=== PATIENT | female | born 1975 | race Two or more races ===

== ENCOUNTER → 2019-12-25 12:40 | Outpatient (BNVA) | payer MEDICAID, SELFPAY | PROVIDERS: PCP Internal Medicine; Visit Provider Physician Assistant | DX: K21.9 Gastro-esophageal reflux disease without esophagitis (principal); R19.7 Diarrhea, unspecified; Z79.899 Other long term (current) drug therapy | CPT/HCPCS: 99203 ==

== ENCOUNTER → 2020-01-08 14:15 | Outpatient (BNVA) | payer MEDICAID, SELFPAY | PROVIDERS: PCP Internal Medicine; Visit Provider Physician Assistant | DX: K21.9 Gastro-esophageal reflux disease without esophagitis (principal); R19.7 Diarrhea, unspecified; Z79.899 Other long term (current) drug therapy | CPT/HCPCS: 99212 ==

== ENCOUNTER → 2020-01-14 20:07 | Outpatient (REF) | payer MEDICAID, SELFPAY | LOC: HO.SL 20:07 | PROVIDERS: Visit Provider Nurse Practitioner Family | DX: G47.9 Sleep disorder, unspecified (principal); G47.33 Obstructive sleep apnea (adult) (pediatric) | CPT/HCPCS: 95810 ==

== ENCOUNTER → 2020-01-15 08:43 | Outpatient (BNVA) | payer MEDICAID, SELFPAY | PROVIDERS: PCP Internal Medicine; Referring Provider Internal Medicine; Visit Provider Nurse Practitioner Family | DX: Z76.89 Persons encountering health services in other specified circumstances (principal) ==

== ENCOUNTER → 2020-01-29 08:33 | Outpatient (BNVA) | payer MEDICAID, SELFPAY | PROVIDERS: Visit Provider Nurse Practitioner Family | DX: Z76.89 Persons encountering health services in other specified circumstances (principal) ==

== ENCOUNTER → 2020-04-23 13:31 | Outpatient (BNVA) | payer MEDICAID, SELFPAY | PROVIDERS: Visit Provider Physician Assistant ==

== ENCOUNTER → 2020-04-29 10:26 | Outpatient (BNVA) | payer MEDICAID, SELFPAY | PROVIDERS: Visit Provider Nurse Practitioner Family ==

== ENCOUNTER 2020-05-07 10:29 | Outpatient (REF) | payer MEDICAID, SELFPAY ==
[2020-05-07 10:56] LABS: Hematocrit 45.8 % (37-47); Hemoglobin 14.6 g/dl (12.0-16.0); Mean Corpuscular HGB Conc 31.9 g/dl (31.0-35.0); Mean Corpuscular Hemoglobin 28.8 pg (27.0-33.0); Mean Corpuscular Volume 90.3 fL (80-98); Mean Platelet Volume 11.2 fL (9.4-12.3); Platelet Count 223 X10*3/uL (160-400); Red Blood Count 5.07 X10*6/uL (4.20-5.50); Red Cell Distribution Width 12.9 % (11.0-16.0)
[2020-05-07 11:40] LABS: Alanine Aminotransferase 10 U/L (0-31); Alkaline Phosphatase 104 U/L (39-117); Anion Gap 11 (12-20); Aspartate Amino Transferase 10 U/L (5-31); Bilirubin Total 0.4 mg/dL (0.0-1.0); Blood Urea Nitrogen 9 mg/dL (9-16); Carbon Dioxide 27 mmol/L (22-29); Chloride 108 mmol/L (96-108); Estimated Glomerular Filt Rate > 60; Glucose Random 104 mg/dL (60-115); Iron 62 mcg/dL (30-160); Percent Iron Saturation 17 % (15-50); Potassium 4.3 mmol/L (3.3-5.1); Sodium 142 mmol/L (135-145); Total Iron Binding Capacity 367 mcg/dL (228-428); Total Protein 6.2 g/dL (6.5-8.0); Unsaturated Iron Binding 305 ug/dL
[2020-05-07 12:00] LABS: Ferritin 24 ng/mL (10-250)
[2020-05-08 16:02] LABS: Transferrin 292 mg/dL (188-341)
== END 2020-05-07 10:30 | disposition home or self-care (01) ==
LOC: HO.LAB 10:29
PROVIDERS: Absent Provider Physician Assistant; PCP Internal Medicine; Visit Provider Nurse Practitioner Family
DX: G25.81 Restless legs syndrome (principal); R19.7 Diarrhea, unspecified
CPT/HCPCS: 36415; 80053; 82728; 83540; 84466; 85027

== ENCOUNTER 2020-05-22 14:53 | Outpatient (REF) | payer MEDICAID, SELFPAY ==
--- NOTE | ~2020-05-22 | XR_ITS ---
EXAMINATION: XR KNEE, LEFT CLINICAL INFORMATION: Rheumatoid arthritis with moderate factor. COMPARISON: None TECHNIQUE: Four views of the left knee. FINDINGS: Bones and soft tissues are normal. No fracture or joint effusion. Alignment is anatomic. Joint spaces are well maintained. No abnormal soft tissue calcification. XR/XR knee LT 3V IMPRESSION: Unremarkable left knee.
== END 2020-05-22 14:54 | disposition home or self-care (01) ==
LOC: HO.XRAY 14:53
PROVIDERS: PCP Internal Medicine; Visit Provider Student in an Organized Health Care Education/Training Program
DX: M05.9 Rheumatoid arthritis with rheumatoid factor, unspecified (principal); M81.8 Other osteoporosis without current pathological fracture; M79.7 Fibromyalgia; Z88.0 Allergy status to penicillin; Z88.8 Allergy status to other drugs, medicaments and biological substances; Z79.52 Long term (current) use of systemic steroids
CPT/HCPCS: 73562; 99212

== ENCOUNTER → 2020-05-23 11:53 | Outpatient (BNVA) | payer MEDICAID, SELFPAY | PROVIDERS: PCP Internal Medicine; Visit Provider Internal Medicine Pulmonary Disease | DX: J45.40 Moderate persistent asthma, uncomplicated (principal); Z79.899 Other long term (current) drug therapy | CPT/HCPCS: 99212 ==

== ENCOUNTER → 2020-05-27 07:59 | Outpatient (BNVA) | payer MEDICAID, SELFPAY | PROVIDERS: PCP Internal Medicine; Visit Provider Physician Assistant ==

== ENCOUNTER → 2020-06-12 09:11 | Outpatient (BNVA) | payer MEDICAID, SELFPAY | PROVIDERS: Visit Provider Physician Assistant ==

== ENCOUNTER → 2020-07-22 11:15 | Outpatient (BNVA) | payer MEDICAID, SELFPAY | PROVIDERS: PCP Internal Medicine; Visit Provider Nurse Practitioner Family ==

== ENCOUNTER → 2020-08-01 13:22 | Outpatient (BNVA) | payer MEDICAID, SELFPAY | PROVIDERS: PCP Internal Medicine; Visit Provider Internal Medicine Pulmonary Disease | DX: J45.50 Severe persistent asthma, uncomplicated (principal); M05.9 Rheumatoid arthritis with rheumatoid factor, unspecified; Z88.0 Allergy status to penicillin; Z88.8 Allergy status to other drugs, medicaments and biological substances; Z79.899 Other long term (current) drug therapy | CPT/HCPCS: 99212 ==

== ENCOUNTER → 2020-08-07 09:36 | Outpatient (BNVA) | payer MEDICAID, SELFPAY | PROVIDERS: PCP Internal Medicine; Visit Provider Physician Assistant ==

== ENCOUNTER 2020-08-26 09:48 | Outpatient (REF) | payer MEDICAID, SELFPAY ==
[2020-08-26 11:02] LABS: MANUAL DIFF FLAG NO
[2020-08-26 11:18] LABS: Basophils Percent Auto 0.5 % (0-2); Eosinophils Absolute Auto 0.3 X10*3/uL (0.0-0.4); Eosinophils Percent Auto 3.8 % (0-4); Hematocrit 43.9 % (37-47); Hemoglobin 13.6 g/dl (12.0-16.0); Imm Gran Abs Auto 0.02 X10*3/uL (0.00-0.03); Imm Gran Pct Auto 0.3 % (0.0-0.4); Lymphocytes Absolute Auto 2.4 X10*3/uL (1.2-4.9); Lymphocytes Percent Auto 32.2 % (20-40); Mean Corpuscular Hemoglobin 28.4 pg (27.0-33.0); Mean Corpuscular Volume 91.6 fL (80-98); Mean Platelet Volume 10.9 fL (9.4-12.3); Monocytes Absolute Auto 0.5 X10*3/uL (0.1-1.2); Monocytes Percent Auto 6.8 % (2-11); Neutrophils Absolute Auto 4.1 X10*3/uL (2.0-8.3); Neutrophils Percent Auto 56.4 % (45-73); Platelet Count 226 X10*3/uL (160-400); Red Blood Count 4.79 X10*6/uL (4.20-5.50); Red Cell Distribution Width 13.8 % (11.0-16.0); White Blood Count 7.3 X10*3/uL (4.8-10.8)
[2020-08-26 11:32] LABS: Alanine Aminotransferase 14 U/L (0-31); Albumin Level 3.7 g/dL (3.5-5.0); Alkaline Phosphatase 114 U/L (39-117); Anion Gap 10 (12-20); Aspartate Amino Transferase 13 U/L (5-31); Bilirubin Total 0.3 mg/dL (0.0-1.0); Blood Urea Nitrogen 13 mg/dL (9-16); C Reactive Protein 0.67 mg/dL (< or = 0.50); Calcium 8.9 mg/dL (8.4-10.2); Carbon Dioxide 27 mmol/L (22-29); Chloride 111 mmol/L (96-108); Estimated Glomerular Filt Rate > 60; Glucose Random 107 mg/dL (60-115); Potassium 4.2 mmol/L (3.3-5.1); Sodium 144 mmol/L (135-145)
[2020-08-26 11:55] LABS: Thyroid Stimulating Hormone 2.08 uIU/mL (0.32-4.0)
[2020-08-26 12:19] LABS: Erythrocyte Sedimentation Rate 9 MM/HR (0-20)
[2020-08-27 13:37] LABS: CRP High Sensitivity 6.4 mg/L
[2020-08-29 16:41] LABS: Transglutaminase IgA 1 U/mL
== END 2020-08-26 09:49 | disposition home or self-care (01) ==
LOC: HO.MDS 09:48
PROVIDERS: Physician Assistant; Absent Provider Student in an Organized Health Care Education/Training Program; PCP Internal Medicine; Visit Provider Internal Medicine Pulmonary Disease
DX: M05.9 Rheumatoid arthritis with rheumatoid factor, unspecified (principal); R19.7 Diarrhea, unspecified; K59.09 Other constipation; J45.909 Unspecified asthma, uncomplicated
CPT/HCPCS: 36415; 80053; 83516; 84443; 85025; 85652; 86140; 86141

== ENCOUNTER → 2020-08-27 12:21 | Outpatient (BNVA) | payer MEDICAID, SELFPAY | PROVIDERS: PCP Internal Medicine; Visit Provider Student in an Organized Health Care Education/Training Program | DX: M05.9 Rheumatoid arthritis with rheumatoid factor, unspecified (principal) | CPT/HCPCS: 99212 ==

== ENCOUNTER 2020-10-10 11:00 | Outpatient (REF) | payer MEDICAID, SELFPAY | END 2020-10-10 11:01 | disposition home or self-care (01) | LOC: HO.MDS 11:00 | PROVIDERS: Visit Provider Internal Medicine Pulmonary Disease | DX: J45.50 Severe persistent asthma, uncomplicated (principal) | CPT/HCPCS: 96372; J2357 ==

== ENCOUNTER → 2020-10-15 14:40 | Outpatient (BNVA) | payer MEDICAID, SELFPAY | PROVIDERS: PCP Internal Medicine; Visit Provider Internal Medicine Pulmonary Disease | DX: J45.50 Severe persistent asthma, uncomplicated (principal); Z91.09 Other allergy status, other than to drugs and biological substances | CPT/HCPCS: 99212 ==

== ENCOUNTER 2020-10-27 11:31 | Outpatient (REF) | payer MEDICAID, SELFPAY | END 2020-10-27 11:32 | disposition home or self-care (01) | LOC: HO.MDS 11:31 | PROVIDERS: PCP Internal Medicine; Visit Provider Internal Medicine Pulmonary Disease | DX: J45.50 Severe persistent asthma, uncomplicated (principal) | CPT/HCPCS: 96372; J2357; J2930; Q0163 ==

== ENCOUNTER 2020-10-27 13:29 | Outpatient (REF) | payer MEDICAID, SELFPAY ==
[2020-10-27 14:16] LABS: MANUAL DIFF FLAG NO
[2020-10-27 14:31] LABS: Basophils Absolute Auto 0.1 X10*3/uL (0.0-0.2); Basophils Percent Auto 0.5 % (0-2); Eosinophils Absolute Auto 0.2 X10*3/uL (0.0-0.4); Eosinophils Percent Auto 1.5 % (0-4); Hematocrit 48.7 % (37-47); Hemoglobin 15.3 g/dl (12.0-16.0); Imm Gran Abs Auto 0.05 X10*3/uL (0.00-0.03); Imm Gran Pct Auto 0.5 % (0.0-0.4); Lymphocytes Absolute Auto 2.2 X10*3/uL (1.2-4.9); Lymphocytes Percent Auto 22.2 % (20-40); Mean Corpuscular HGB Conc 31.4 g/dl (31.0-35.0); Mean Corpuscular Hemoglobin 28.4 pg (27.0-33.0); Mean Corpuscular Volume 90.5 fL (80-98); Mean Platelet Volume 10.6 fL (9.4-12.3); Monocytes Absolute Auto 0.4 X10*3/uL (0.1-1.2); Monocytes Percent Auto 3.6 % (2-11); Neutrophils Absolute Auto 7.2 X10*3/uL (2.0-8.3); Neutrophils Percent Auto 71.7 % (45-73); Platelet Count 251 X10*3/uL (160-400); Red Blood Count 5.38 X10*6/uL (4.20-5.50); Red Cell Distribution Width 13.2 % (11.0-16.0); White Blood Count 10.1 X10*3/uL (4.8-10.8)
[2020-10-27 14:41] LABS: Alanine Aminotransferase 28 U/L (0-31); Albumin Level 4.1 g/dL (3.5-5.0); Alkaline Phosphatase 123 U/L (39-117); Anion Gap 14 (12-20); Aspartate Amino Transferase 17 U/L (5-31); Bilirubin Total 0.4 mg/dL (0.0-1.0); Blood Urea Nitrogen 9 mg/dL (9-16); C Reactive Protein 1.26 mg/dL (< or = 0.50); Calcium 9.5 mg/dL (8.4-10.2); Carbon Dioxide 27 mmol/L (22-29); Chloride 108 mmol/L (96-108); Estimated Glomerular Filt Rate > 60; Glucose Random 121 mg/dL (60-115); Potassium 3.9 mmol/L (3.3-5.1); Sodium 145 mmol/L (135-145); Total Protein 6.8 g/dL (6.5-8.0)
[2020-10-27 15:13] LABS: Erythrocyte Sedimentation Rate 12 MM/HR (0-20)
== END 2020-10-27 13:30 | disposition home or self-care (01) ==
LOC: HO.LAB 13:29
PROVIDERS: PCP Internal Medicine; Visit Provider Student in an Organized Health Care Education/Training Program
DX: M05.9 Rheumatoid arthritis with rheumatoid factor, unspecified (principal)
CPT/HCPCS: 36415; 80053; 85025; 85652; 86140

== ENCOUNTER 2020-11-11 12:42 | Outpatient (REF) | payer MEDICAID, SELFPAY | END 2020-11-11 12:43 | disposition home or self-care (01) | LOC: HO.MDS 12:42 | PROVIDERS: PCP Internal Medicine; Visit Provider Internal Medicine Pulmonary Disease | DX: J45.50 Severe persistent asthma, uncomplicated (principal) | CPT/HCPCS: 96372; J2357 ==

== ENCOUNTER → 2020-11-11 13:31 | Outpatient (REF) | payer MEDICAID, SELFPAY | LOC: HO.SL 13:31 | PROVIDERS: PCP Internal Medicine; Visit Provider Nurse Practitioner Family | DX: G47.33 Obstructive sleep apnea (adult) (pediatric) (principal) | CPT/HCPCS: 99211 ==

== ENCOUNTER → 2020-11-19 12:42 | Outpatient (BNVA) | payer MEDICAID, SELFPAY | PROVIDERS: PCP Internal Medicine; Referring Provider Internal Medicine; Visit Provider Physician Assistant | DX: K58.9 Irritable bowel syndrome, unspecified (principal) | CPT/HCPCS: 99202 ==

== ENCOUNTER 2020-11-25 14:50 | Outpatient (REF) | payer MEDICAID, SELFPAY | END 2020-11-25 14:51 | disposition home or self-care (01) | LOC: HO.MDS 14:50 | PROVIDERS: PCP Internal Medicine; Visit Provider Internal Medicine Pulmonary Disease | DX: J45.50 Severe persistent asthma, uncomplicated (principal) | CPT/HCPCS: 96372; J2357 ==

== ENCOUNTER 2020-12-09 11:45 | Outpatient (REF) | payer MEDICAID, SELFPAY | END 2020-12-09 11:46 | disposition home or self-care (01) | LOC: HO.MDS 11:45 | PROVIDERS: PCP Internal Medicine; Visit Provider Internal Medicine Pulmonary Disease | DX: J45.50 Severe persistent asthma, uncomplicated (principal) | CPT/HCPCS: 96372; J2357 ==

== ENCOUNTER → 2020-12-17 12:54 | Outpatient (BNVA) | payer MEDICAID, SELFPAY | PROVIDERS: PCP Internal Medicine; Visit Provider Internal Medicine Pulmonary Disease | DX: J45.50 Severe persistent asthma, uncomplicated (principal); Z91.09 Other allergy status, other than to drugs and biological substances | CPT/HCPCS: 99212 ==

== ENCOUNTER 2020-12-24 11:34 | Outpatient (REF) | payer MEDICAID, SELFPAY | END 2020-12-24 11:35 | disposition home or self-care (01) | LOC: HO.MDS 11:34 | PROVIDERS: PCP Internal Medicine; Visit Provider Internal Medicine Pulmonary Disease | DX: J45.50 Severe persistent asthma, uncomplicated (principal) | CPT/HCPCS: 96372; J2357 ==

== ENCOUNTER 2021-01-07 10:52 | Outpatient (REF) | payer MEDICAID, SELFPAY | END 2021-01-07 10:53 | disposition home or self-care (01) | LOC: HO.MDS 10:52 | PROVIDERS: PCP Internal Medicine; Visit Provider Internal Medicine Pulmonary Disease | DX: J45.50 Severe persistent asthma, uncomplicated (principal) | CPT/HCPCS: 96372; J2357 ==

== ENCOUNTER 2021-01-21 12:22 | Outpatient (REF) | payer MEDICAID, SELFPAY | END 2021-01-21 12:23 | disposition home or self-care (01) | LOC: HO.MDS 12:22 | PROVIDERS: PCP Internal Medicine; Visit Provider Internal Medicine Pulmonary Disease | DX: J45.50 Severe persistent asthma, uncomplicated (principal) | CPT/HCPCS: 96372; J2357 ==

== ENCOUNTER 2021-02-04 11:53 | Outpatient (REF) | payer MEDICAID, SELFPAY | END 2021-02-04 11:54 | disposition home or self-care (01) | LOC: HO.MDS 11:53 | PROVIDERS: Visit Provider Internal Medicine Pulmonary Disease | DX: J45.50 Severe persistent asthma, uncomplicated (principal) | CPT/HCPCS: 96372; J2357 ==

== ENCOUNTER 2021-02-20 12:55 | Outpatient (REF) | payer MEDICAID, SELFPAY | END 2021-02-20 12:56 | disposition home or self-care (01) | LOC: HO.MDS 12:55 | PROVIDERS: Visit Provider Internal Medicine Pulmonary Disease | DX: J45.50 Severe persistent asthma, uncomplicated (principal) | CPT/HCPCS: 96372; J2357 ==

== ENCOUNTER → 2021-04-06 10:40 | Outpatient (BNVA) | payer MEDICAID, SELFPAY | PROVIDERS: PCP Internal Medicine; Referring Provider Internal Medicine; Visit Provider Physician Assistant | DX: K21.9 Gastro-esophageal reflux disease without esophagitis (principal); J45.50 Severe persistent asthma, uncomplicated; G47.33 Obstructive sleep apnea (adult) (pediatric) | CPT/HCPCS: 99212 ==

== ENCOUNTER 2021-04-13 10:31 | Outpatient (REF) | payer MEDICAID, SELFPAY | END 2021-04-13 10:32 | disposition home or self-care (01) | LOC: HO.MDS 10:31 | PROVIDERS: Visit Provider Internal Medicine Pulmonary Disease | DX: J45.50 Severe persistent asthma, uncomplicated (principal) | CPT/HCPCS: 96372; J2357 ==

== ENCOUNTER → 2021-04-17 12:54 | Outpatient (BNVA) | payer MEDICAID, SELFPAY | PROVIDERS: PCP Internal Medicine; Visit Provider Hospitalist | DX: J45.51 Severe persistent asthma with (acute) exacerbation (principal) | CPT/HCPCS: 94640; 96372; 99212; J2930 ==

== ENCOUNTER → 2021-04-22 10:21 | Outpatient (BNVA) | payer MEDICAID, SELFPAY | PROVIDERS: PCP Internal Medicine; Visit Provider Internal Medicine Pulmonary Disease | DX: J45.50 Severe persistent asthma, uncomplicated (principal); Z91.09 Other allergy status, other than to drugs and biological substances | CPT/HCPCS: 99212 ==

== ENCOUNTER 2021-05-20 07:57 | Outpatient (REF) | payer MEDICAID, SELFPAY ==
[2021-05-20 09:17] LABS: MANUAL DIFF FLAG NO
[2021-05-20 09:42] LABS: Basophils Absolute Auto 0.1 X10*3/uL (0.0-0.2); Basophils Percent Auto 0.9 % (0-2); Eosinophils Absolute Auto 0.2 X10*3/uL (0.0-0.4); Eosinophils Percent Auto 4.5 % (0-4); Hematocrit 43.7 % (37.0-47.0); Hemoglobin 13.5 g/dl (12.0-16.0); Imm Gran Abs Auto 0.02 X10*3/uL (0.00-0.03); Imm Gran Pct Auto 0.4 % (0.0-0.4); Lymphocytes Percent Auto 37.1 % (20-40); Mean Corpuscular HGB Conc 30.9 g/dl (31.0-35.0); Mean Corpuscular Hemoglobin 28.3 pg (27.0-33.0); Mean Corpuscular Volume 91.6 fL (80.0-98.0); Mean Platelet Volume 10.8 fL (9.4-12.3); Monocytes Absolute Auto 0.5 X10*3/uL (0.1-1.2); Monocytes Percent Auto 8.6 % (2-11); Neutrophils Absolute Auto 2.6 x10*3/uL (2.0-8.3); Neutrophils Percent Auto 48.5 % (45-73); Platelet Count 251 X10*3/uL (160-400); Red Blood Count 4.77 X10*6/uL (4.20-5.50); Red Cell Distribution Width 13.1 % (11.0-16.0); White Blood Count 5.3 X10*3/uL (4.8-10.8)
[2021-05-20 10:17] LABS: Alanine Aminotransferase 27 U/L (0-31); Albumin Level 3.7 g/dL (3.5-5.0); Alkaline Phosphatase 92 U/L (39-117); Anion Gap 12 (12-20); Aspartate Amino Transferase 20 U/L (5-31); Bilirubin Total 0.3 mg/dL (0.0-1.0); Blood Urea Nitrogen 15 mg/dL (9-16); C Reactive Protein 0.71 mg/dL (< or = 0.50); Calcium 9.6 mg/dL (8.4-10.2); Carbon Dioxide 27 mmol/L (22-29); Chloride 108 mmol/L (96-108); Estimated Glomerular Filt Rate > 60; Glucose Random 129 mg/dL (60-115); Potassium 4.2 mmol/L (3.3-5.1); Sodium 143 mmol/L (135-145)
[2021-05-20 10:22] LABS: Erythrocyte Sedimentation Rate 7 MM/HR (0-20)
[2021-05-20 10:33] LABS: HBc Num1 0.12 S/CO (0.00-0.79); Hepatitis A Antibody IgM 0.25 Index (0-0.79); Hepatitis B Core Antibody Nonreactive (Nonreactive); ~HepC Num1 0.12 S/CO (0.00-0.79); ~Hepatitis A Antibody IgM Nonreactive (Nonreactive); ~Hepatitis B Surface Antibody NONREACTIVE (Nonreactive); ~Hepatitis C Antibody Nonreactive (Nonreactive)
[2021-05-20 10:40] LABS: HBsAGNum1 0.22 S/CO (0.00-0.99); Hepatitis B Surface Antigen Negative (Negative)
[2021-05-22 12:52] LABS: TS Negative Control Passed; TS Panel A 1; TS Panel B 0; TS Positive Control Passed; TSpotTB Negative (Negative)
== END 2021-05-20 07:58 | disposition home or self-care (01) ==
LOC: HO.LAB 07:57
PROVIDERS: PCP Internal Medicine; Visit Provider Nurse Practitioner Family
DX: Z01.84 Encounter for antibody response examination (principal); Z11.1 Encounter for screening for respiratory tuberculosis; J45.50 Severe persistent asthma, uncomplicated; Z91.09 Other allergy status, other than to drugs and biological substances; M05.9 Rheumatoid arthritis with rheumatoid factor, unspecified
CPT/HCPCS: 36415; 80053; 85025; 85652; 86140; 86481; 86704; 86706; 86709; 86803; 87340; 99212

== ENCOUNTER → 2021-07-01 12:50 | Outpatient (BNVA) | payer MEDICAID, SELFPAY | PROVIDERS: PCP Internal Medicine; Referring Provider Internal Medicine; Visit Provider Physician Assistant | DX: K21.9 Gastro-esophageal reflux disease without esophagitis (principal); K58.9 Irritable bowel syndrome, unspecified; K64.9 Unspecified hemorrhoids; J45.50 Severe persistent asthma, uncomplicated; G47.33 Obstructive sleep apnea (adult) (pediatric); Z91.09 Other allergy status, other than to drugs and biological substances; Z79.899 Other long term (current) drug therapy | CPT/HCPCS: 99212 ==

== ENCOUNTER → 2021-07-22 11:27 | Outpatient (BNVA) | payer MEDICAID, SELFPAY | PROVIDERS: PCP Internal Medicine; Visit Provider Nurse Practitioner Family | DX: M05.9 Rheumatoid arthritis with rheumatoid factor, unspecified (principal) | CPT/HCPCS: 99212 ==

== ENCOUNTER 2021-10-19 10:24 | Outpatient (REF) | payer MEDICAID, SELFPAY ==
[2021-10-19 10:41] LABS: MANUAL DIFF FLAG NO
[2021-10-19 11:33] LABS: Basophils Absolute Auto 0.1 X10*3/uL (0.0-0.2); Basophils Percent Auto 1.1 % (0-2); Eosinophils Absolute Auto 0.6 X10*3/uL (0.0-0.4); Eosinophils Percent Auto 7.7 % (0-4); Hematocrit 48.2 % (37.0-47.0); Hemoglobin 15.5 g/dl (12.0-16.0); Imm Gran Abs Auto 0.03 X10*3/uL (0.00-0.03); Imm Gran Pct Auto 0.4 % (0.0-0.4); Lymphocytes Absolute Auto 2.6 X10*3/uL (1.2-4.9); Lymphocytes Percent Auto 32.8 % (20-40); Mean Corpuscular HGB Conc 32.2 g/dl (31.0-35.0); Mean Corpuscular Hemoglobin 27.9 pg (27.0-33.0); Mean Corpuscular Volume 86.8 fL (80.0-98.0); Monocytes Absolute Auto 0.5 X10*3/uL (0.1-1.2); Monocytes Percent Auto 6.3 % (2-11); Neutrophils Absolute Auto 4.1 x10*3/uL (2.0-8.3); Neutrophils Percent Auto 51.7 % (45-73); Platelet Count 245 X10*3/uL (160-400); Red Blood Count 5.55 X10*6/uL (4.20-5.50); Red Cell Distribution Width 13.2 % (11.0-16.0); White Blood Count 7.9 X10*3/uL (4.8-10.8)
[2021-10-19 12:26] LABS: Alanine Aminotransferase 15 U/L (0-31); Aspartate Amino Transferase 13 U/L (5-31); C Reactive Protein 0.52 mg/dL (< or = 0.50); Estimated Glomerular Filt Rate > 60
[2021-10-19 13:24] LABS: Erythrocyte Sedimentation Rate 7 MM/HR (0-20)
== END 2021-10-19 10:25 | disposition home or self-care (01) ==
LOC: HO.LAB 10:24
PROVIDERS: PCP Internal Medicine; Visit Provider Nurse Practitioner Family
DX: M05.9 Rheumatoid arthritis with rheumatoid factor, unspecified (principal); Z79.899 Other long term (current) drug therapy
CPT/HCPCS: 36415; 82565; 84450; 84460; 85025; 85652; 86140

== ENCOUNTER → 2021-11-05 11:12 | Outpatient (BNVA) | payer MEDICAID, SELFPAY | PROVIDERS: Visit Provider Nurse Practitioner Family | DX: M05.9 Rheumatoid arthritis with rheumatoid factor, unspecified (principal); J45.50 Severe persistent asthma, uncomplicated; Z79.899 Other long term (current) drug therapy | CPT/HCPCS: 99212 ==

== ENCOUNTER → 2021-11-19 10:36 | Outpatient (BNVA) | payer MEDICAID, SELFPAY | PROVIDERS: PCP Internal Medicine; Referring Provider Internal Medicine; Visit Provider Physician Assistant | DX: K58.9 Irritable bowel syndrome, unspecified (principal); K21.9 Gastro-esophageal reflux disease without esophagitis; J45.51 Severe persistent asthma with (acute) exacerbation; G47.33 Obstructive sleep apnea (adult) (pediatric) | CPT/HCPCS: 99212 ==

== ENCOUNTER → 2022-01-05 14:57 | Outpatient (BNVA) | payer MEDICAID, SELFPAY | PROVIDERS: PCP Internal Medicine; Visit Provider Nurse Practitioner Family | DX: G47.33 Obstructive sleep apnea (adult) (pediatric) (principal); Z99.89 Dependence on other enabling machines and devices | CPT/HCPCS: 99212 ==

== ENCOUNTER 2022-03-05 11:48 | Outpatient (REF) | payer MEDICAID, SELFPAY ==
[2022-03-05 12:06] LABS: MANUAL DIFF FLAG NO
[2022-03-05 12:39] LABS: Basophils Percent Auto 0.6 % (0-2); Eosinophils Absolute Auto 0.1 X10*3/uL (0.0-0.4); Eosinophils Percent Auto 1.6 % (0-4); Hematocrit 45.3 % (37.0-47.0); Hemoglobin 14.8 g/dl (12.0-16.0); Imm Gran Abs Auto 0.03 X10*3/uL (0.00-0.03); Imm Gran Pct Auto 0.4 % (0.0-0.4); Lymphocytes Absolute Auto 2.8 X10*3/uL (1.2-4.9); Lymphocytes Percent Auto 41.9 % (20-40); Mean Corpuscular HGB Conc 32.7 g/dl (31.0-35.0); Mean Corpuscular Hemoglobin 27.8 pg (27.0-33.0); Mean Platelet Volume 10.7 fL (9.4-12.3); Monocytes Absolute Auto 0.4 X10*3/uL (0.1-1.2); Monocytes Percent Auto 5.3 % (2-11); Neutrophils Absolute Auto 3.4 x10*3/uL (2.0-8.3); Neutrophils Percent Auto 50.2 % (45-73); Platelet Count 242 X10*3/uL (160-400); Red Blood Count 5.33 X10*6/uL (4.20-5.50); Red Cell Distribution Width 12.9 % (11.0-16.0); White Blood Count 6.7 X10*3/uL (4.8-10.8)
[2022-03-05 13:17] LABS: Erythrocyte Sedimentation Rate 10 MM/HR (0-20)
[2022-03-05 13:19] LABS: Alanine Aminotransferase 19 U/L (0-31); Aspartate Amino Transferase 15 U/L (5-31); C Reactive Protein 0.27 mg/dL (< or = 0.50); Estimated Glomerular Filt Rate > 60
== END 2022-03-05 11:49 | disposition home or self-care (01) ==
LOC: HO.LAB 11:48
PROVIDERS: PCP Internal Medicine; Visit Provider Nurse Practitioner Family
DX: M05.9 Rheumatoid arthritis with rheumatoid factor, unspecified (principal); Z79.899 Other long term (current) drug therapy
CPT/HCPCS: 36415; 82565; 84450; 84460; 85025; 85652; 86140

== ENCOUNTER → 2022-03-09 08:46 | Outpatient (BNVA) | payer MEDICAID, SELFPAY | PROVIDERS: PCP Internal Medicine; Visit Provider Nurse Practitioner Family | DX: M05.9 Rheumatoid arthritis with rheumatoid factor, unspecified (principal); J45.50 Severe persistent asthma, uncomplicated | CPT/HCPCS: 99212 ==

== ENCOUNTER → 2022-05-20 14:33 | Outpatient (BNVA) | payer MEDICAID, SELFPAY | PROVIDERS: Visit Provider Physician Assistant | DX: K21.9 Gastro-esophageal reflux disease without esophagitis (principal); K58.9 Irritable bowel syndrome, unspecified; J45.50 Severe persistent asthma, uncomplicated; G47.33 Obstructive sleep apnea (adult) (pediatric); Z99.89 Dependence on other enabling machines and devices | CPT/HCPCS: 99212 ==

== ENCOUNTER 2022-06-02 11:24 | Outpatient (REF) | payer MEDICAID, SELFPAY ==
[2022-06-02 13:34] LABS: MANUAL DIFF FLAG NO
[2022-06-02 13:39] LABS: Basophils Absolute Auto 0.1 X10*3/uL (0.0-0.2); Basophils Percent Auto 1.4 % (0-2); Eosinophils Absolute Auto 0.3 X10*3/uL (0.0-0.4); Hematocrit 46.5 % (37.0-47.0); Hemoglobin 15.1 g/dl (12.0-16.0); Imm Gran Abs Auto 0.02 X10*3/uL (0.00-0.03); Imm Gran Pct Auto 0.3 % (0.0-0.4); Lymphocytes Absolute Auto 2.1 X10*3/uL (1.2-4.9); Lymphocytes Percent Auto 36.6 % (20-40); Mean Corpuscular HGB Conc 32.5 g/dl (31.0-35.0); Mean Corpuscular Hemoglobin 28.5 pg (27.0-33.0); Mean Corpuscular Volume 87.9 fL (80.0-98.0); Mean Platelet Volume 11.7 fL (9.4-12.3); Monocytes Absolute Auto 0.3 X10*3/uL (0.1-1.2); Monocytes Percent Auto 5.6 % (2-11); Neutrophils Absolute Auto 2.9 x10*3/uL (2.0-8.3); Neutrophils Percent Auto 51.1 % (45-73); Platelet Count 216 X10*3/uL (160-400); Red Blood Count 5.29 X10*6/uL (4.20-5.50); Red Cell Distribution Width 13.4 % (11.0-16.0); White Blood Count 5.8 X10*3/uL (4.8-10.8)
[2022-06-02 13:56] LABS: Alanine Aminotransferase 11 U/L (0-31); Aspartate Amino Transferase 12 U/L (5-31); C Reactive Protein 0.37 mg/dL (< or = 0.50); Estimated Glomerular Filt Rate > 60
[2022-06-02 15:28] LABS: Erythrocyte Sedimentation Rate 5 MM/HR (0-20)
== END 2022-06-02 11:25 | disposition home or self-care (01) ==
LOC: HO.10HDL 11:24
PROVIDERS: Visit Provider Nurse Practitioner Family
DX: M05.9 Rheumatoid arthritis with rheumatoid factor, unspecified (principal); Z79.899 Other long term (current) drug therapy
CPT/HCPCS: 36415; 82565; 84450; 84460; 85025; 85652; 86140

== ENCOUNTER → 2022-06-30 11:36 | Outpatient (BNVA) | payer MEDICAID, SELFPAY | PROVIDERS: Visit Provider Nurse Practitioner Family | DX: M05.9 Rheumatoid arthritis with rheumatoid factor, unspecified (principal); M79.671 Pain in right foot | CPT/HCPCS: 99212 ==

== ENCOUNTER 2022-09-21 11:06 | Outpatient (AMB) | payer MEDICAID, SELFPAY ==
--- NOTE | 2022-09-21 11:09 | A.OFFVIS_ITS ---
Intake Vital Signs 09/21/22 11:12 Height 4 ft 11 in Weight 174 lb BMI 35.1 BP 132/84 Blood Pressure Location Rt brachial Position Sitting Pulse 86 Pulse Source Pulse Oximeter Pulse Oximetry (%) 97 Oxygen Delivery Method Room Air Intake Visit Reasons: 6 mnts f/u appt Intake Note: Patient presents for 6 month follow up Quality Assurance Clerk Required: Yes Quality Assurance Clerk Name: Margret Merrill Information Interpreted: non-clinical & clinical Allergies penicillin G [PENICILLIN G] Allergy (Severe, Verified 09/21/22 11:12) DIZZINESS tramadol Allergy (Severe, Verified 09/21/22 11:12) Vomiting and sweats HPI HPI Comments History of Present Illness Details 47 y/o female patient presents for follow up of BONNIE on CPAP. Pt reports she sleeps well with CPAP and wakes up refreshed and energized. She states that she lost wt, manages her diet, limit sugar and soda. The CPAP compliance and therapy response ( 06/23/22-09/20/22) reviewed. She is on APAP [id number]. She is compliant with CPAP, the usage days 86% and the average usage hours 7 hours and 25 min. The median pressure is 11 and the residual AHI was 0.8/hr. [facility] Medical History Acid reflux Arthritis Diarrhea Irritable bowel [facility] methotrexate user Seropositive rheumatoid arthritis Surgical History History of colonoscopy Hx of endoscopy Family History Father No problems noted. Mother History of high blood pressure Social History Household Members: None Alcohol intake: current Alcohol intake frequency: holidays/special occasions only Alcohol type: beer and wine Patient Tobacco Use Status: Never used Tobacco e-Cigarette/Vaping Use: Never Used Substance Use Type: Marijuana Current occupational status: disabled Review of Systems Const All systems reviewed & are unremarkable except as noted in HPI and below ENT Reports Normal hearing present Neuro Reports Normal hearing present Physical Exam Vital Signs: Last Vital Signs Pulse 86 09/21/22 11:12 BP 132/84 09/21/22 11:12 Pulse Ox 97 09/21/22 11:12 Oxygen Delivery Method Room Air 09/21/22 11:12 BMI result Body Mass Index 35.1 Const General: cooperative and comfortable Nutritional Appearance: obese Orientation/consciousness: patient oriented x3 Neck Neck: Yes full ROM and Yes supple Resp Effort & Inspection: normal respiratory effort and able to speak in complete sentences Neuro General: patient oriented x3, gait normal and moves all extremities Cranial nerves: Yes Bilaterally intact EOM present, Yes Normal facial strength present, Yes Midline tongue present, Yes Symmetric palate elevation present, Yes Normal hearing present, Yes Ability to bilaterally rotate head present and Yes Ability to bilaterally elevate shoulders present Cognition (Neuro): normal cognition Gait exam (Neuro): Normal gait present Psych Appearance: grossly normal Mental Status: mental status grossly normal Speech and movement: Normal speech and movement present Assessment & Plan Assessment & Plan (1) BONNIE on CPAP: Code(s): G47.33 - Obstructive sleep apnea (adult) (pediatric); Z99.89 - Dependence on other enabling machines and devices Plan Continue to use APAP at [id number] as patient experiences good clinical effects. Stressed compliance, nightly and more than 4 hours. Clean mask and CPAP accessories routinely. Continue to practice good sleep hygiene, well balanced diet and wt management. Coding Level of Care Code Est Pt Level 3 (92330) Diagnoses BONNIE on CPAP G47.33; Z99.89
[2022-09-21 11:12] VITALS: BP 132/84; PULSE 86; O2SAT 97; BMI 35.1
== END 2022-09-21 11:31 | disposition home or self-care (01) ==
LOC: HO.HSMC 11:06
PROVIDERS: PCP Internal Medicine; Visit Provider Nurse Practitioner Family
DX: G47.33 Obstructive sleep apnea (adult) (pediatric) (principal); Z99.89 Dependence on other enabling machines and devices
CPT/HCPCS: 99213

== ENCOUNTER → 2022-09-21 11:06 | Outpatient (BNVA) | payer MEDICAID, SELFPAY | PROVIDERS: PCP Internal Medicine; Visit Provider Nurse Practitioner Family | DX: G47.33 Obstructive sleep apnea (adult) (pediatric) (principal); M05.9 Rheumatoid arthritis with rheumatoid factor, unspecified; Z79.631 Long term (current) use of antimetabolite agent; Z99.89 Dependence on other enabling machines and devices | CPT/HCPCS: 99213 ==

== ENCOUNTER 2022-10-12 10:53 | Outpatient (REF) | payer MEDICAID, SELFPAY ==
[2022-10-12 13:22] LABS: MANUAL DIFF FLAG NO
[2022-10-12 13:50] LABS: Appearance Urine Clear; Color Urine Yellow; Glucose Urine UA Negative (Negative); Leukocyte Esterase Urine Negative (Negative); Nitrite Urine Negative (Negative); Specific Gravity - Urine 1.015 (1.005-1.025); Urine Blood Negative (Negative); Urine Ketones Negative (Negative); Urine Protein Negative (Neg-Trace)
[2022-10-12 13:56] LABS: Basophils Absolute Auto 0.1 X10*3/uL (0.0-0.2); Eosinophils Absolute Auto 0.3 X10*3/uL (0.0-0.4); Eosinophils Percent Auto 4.1 % (0-4); Hematocrit 44.8 % (37.0-47.0); Hemoglobin 14.1 g/dl (12.0-16.0); Imm Gran Abs Auto 0.03 X10*3/uL (0.00-0.03); Imm Gran Pct Auto 0.4 % (0.0-0.4); Lymphocytes Absolute Auto 2.8 X10*3/uL (1.2-4.9); Lymphocytes Percent Auto 39.3 % (20-40); Mean Corpuscular HGB Conc 31.5 g/dl (31.0-35.0); Mean Corpuscular Hemoglobin 28.4 pg (27.0-33.0); Mean Corpuscular Volume 90.1 fL (80.0-98.0); Mean Platelet Volume 11.8 fL (9.4-12.3); Monocytes Absolute Auto 0.4 X10*3/uL (0.1-1.2); Monocytes Percent Auto 6.3 % (2-11); Neutrophils Absolute Auto 3.4 x10*3/uL (2.0-8.3); Neutrophils Percent Auto 48.9 % (45-73); Platelet Count 237 X10*3/uL (160-400); Red Blood Count 4.97 X10*6/uL (4.20-5.50); Red Cell Distribution Width 12.4 % (11.0-16.0)
[2022-10-12 14:06] LABS: Estimated Average Glucose 117 mg/dL; Hemoglobin A1C 148.3837 umol/L; Hemoglobin A1c % 5.7 %
[2022-10-12 14:38] LABS: Alanine Aminotransferase 17 U/L (0-31); Albumin Level 3.7 g/dL (3.5-5.0); Alkaline Phosphatase 94 U/L (39-117); Anion Gap 10 (12-20); Aspartate Amino Transferase 12 U/L (5-31); Bilirubin Total 0.2 mg/dL (0.0-1.0); Blood Urea Nitrogen 9 mg/dL (9-16); Calcium 9.3 mg/dL (8.4-10.2); Carbon Dioxide 25 mmol/L (22-29); Chloride 111 mmol/L (96-108); Cholesterol 236 mg/dL; Estimated Glomerular Filt Rate > 60; Glucose Random 106 mg/dL (60-115); HDL Cholesterol 47 mg/dL; LDL Cholesterol Calculated 127 mg/dl; Potassium 3.9 mmol/L (3.3-5.1); Sodium 142 mmol/L (135-145); Total Protein 6.3 g/dL (6.5-8.0); Triglycerides 312 mg/dL
[2022-10-12 14:43] LABS: TSH reflex Free T4 1.26 uIU/mL (0.32-4.0); Vitamin D 25-OH Total 42.7 ng/mL (>30)
[2022-10-12 14:45] LABS: Folate 11.9 ng/mL (> or = 4.0); Vitamin B12 285 pg/mL (200-900)
[2022-10-12 15:21] LABS: CT PCR NOT DETECTED (Not Detect.); NG PCR NOT DETECTED (Not Detect.)
[2022-10-13 04:00] LABS: Syphilis Screen Nonreactive (Nonreactive)
[2022-10-13 04:36] LABS: ~HepC Num1 0.14 S/CO (0.00-0.79); ~Hepatitis C Antibody Nonreactive (Nonreactive)
[2022-10-14 07:03] LABS: Immunoglobulin E 476 kU/L (<OR=114)
== END 2022-10-12 10:54 | disposition home or self-care (01) ==
LOC: HO.HHCL 10:53
PROVIDERS: Visit Provider Family Medicine
DX: Z11.3 Encounter for screening for infections with a predominantly sexual mode of transmission (principal); L29.9 Pruritus, unspecified; E78.5 Hyperlipidemia, unspecified; R73.03 Prediabetes; M79.7 Fibromyalgia; N39.46 Mixed incontinence
CPT/HCPCS: 0353U; 80053; 80061; 81003; 82306; 82607; 82746; 82785; 83036; 84443; 85025; 86780; 86803

== ENCOUNTER 2022-10-14 10:26 | Outpatient (REF) | payer MEDICAID, SELFPAY ==
[2022-10-14 10:42] LABS: MANUAL DIFF FLAG NO
[2022-10-14 10:52] LABS: Basophils Absolute Auto 0.1 X10*3/uL (0.0-0.2); Basophils Percent Auto 0.8 % (0-2); Eosinophils Absolute Auto 0.3 X10*3/uL (0.0-0.4); Eosinophils Percent Auto 3.7 % (0-4); Hemoglobin 14.1 g/dl (12.0-16.0); Imm Gran Abs Auto 0.03 X10*3/uL (0.00-0.03); Imm Gran Pct Auto 0.4 % (0.0-0.4); Lymphocytes Absolute Auto 2.5 X10*3/uL (1.2-4.9); Lymphocytes Percent Auto 32.2 % (20-40); Mean Corpuscular HGB Conc 32.8 g/dl (31.0-35.0); Mean Corpuscular Hemoglobin 28.9 pg (27.0-33.0); Mean Corpuscular Volume 88.1 fL (80.0-98.0); Mean Platelet Volume 11.1 fL (9.4-12.3); Monocytes Absolute Auto 0.5 X10*3/uL (0.1-1.2); Neutrophils Absolute Auto 4.4 x10*3/uL (2.0-8.3); Neutrophils Percent Auto 56.9 % (45-73); Platelet Count 231 X10*3/uL (160-400); Red Blood Count 4.88 X10*6/uL (4.20-5.50); Red Cell Distribution Width 12.4 % (11.0-16.0); White Blood Count 7.7 X10*3/uL (4.8-10.8)
[2022-10-14 11:31] LABS: Alanine Aminotransferase 14 U/L (0-31); Aspartate Amino Transferase 13 U/L (5-31); C Reactive Protein 0.33 mg/dL (< or = 0.50); Estimated Glomerular Filt Rate > 60
[2022-10-14 11:52] LABS: Erythrocyte Sedimentation Rate 6 MM/HR (0-20)
== END 2022-10-14 10:27 | disposition home or self-care (01) ==
LOC: HO.10HDL 10:26
PROVIDERS: Visit Provider Internal Medicine Rheumatology
DX: M05.9 Rheumatoid arthritis with rheumatoid factor, unspecified (principal); Z79.899 Other long term (current) drug therapy
CPT/HCPCS: 36415; 82565; 84450; 84460; 85025; 85652; 86140

== ENCOUNTER 2022-10-20 10:01 | Outpatient (AMB) | payer MEDICAID, SELFPAY ==
--- NOTE | 2022-10-20 10:25 | MHC.OFFVIS ---
Intake Vital Signs 10/20/22 10:27 Height 4 ft 11 in Weight 174 lb 13.225 oz BMI 35.3 Temp 97.2 F Temp Source Skin Intake Visit Reasons: rheumatoid arthritis Intake Note: Here for RA follow up. c/o neck pain x 2 months Mixed Animal Veterinarian Required: Yes Mixed Animal Veterinarian Language: Supervisor Finish End Name: Leah [id number] Information Interpreted: clinical only Accompanied by: Self / Same As Patient Allergies penicillin G [PENICILLIN G] Allergy (Severe, Verified 10/20/22 10:26) DIZZINESS tramadol Allergy (Severe, Verified 10/20/22 10:26) Vomiting and sweats Medication List - Last Reconciled 10/20/22 by Gary Cramer MD albuterol sulfate 90 mcg/actuation (ProAir HFA) 2 puffs inhalation Q6H PRN aripiprazole 15 mg PO BEDTIME ascorbic acid (vitamin C) (Vitamin C) 500 mg PO QAM 30 days aspirin 81 mg PO QAM atorvastatin 40 mg PO BEDTIME bisacodyl (Dulcolax (bisacodyl)) 10 mg (2 x 5 mg) PO ONCE 1 day budesonide-formoterol 160-4.5 mcg/actuation (Symbicort) 2 puffs inhalation BID clonidine HCl 0.1 mg PO cyclobenzaprine 10 mg PO QPM docusate sodium (Colace) 200 mg (2 x 100 mg) PO BEDTIME duloxetine 60 mg PO gabapentin 300 mg PO BEDTIME hydrocortisone 2.5% (Proctosol HC) 1 appl UT BEDTIME PRN hydroxyzine HCl 25 - 50 mg PO Q6H PRN hydroxyzine pamoate 25 - 50 mg PO ipratropium-albuterol 0.5 mg-3 mg(2.5 mg base)/3 mL 3 mL inhalation Q4-6H PRN 30 days leflunomide 10 mg PO QAM loratadine 10 mg PO QAM PRN melatonin 5 - 10 mg PO BEDTIME PRN methylcellulose (laxative) (Fiber Laxative (methylcellulose)) 500 mg PO BID montelukast (Singulair) 10 mg PO BEDTIME pantoprazole 40 mg PO DAILY polyethylene glycol 3350 (Miralax) 238 grams PO ONCE 1 day HPI HPI Comments History of Present Illness Details The patient returns for evaluation of her rheumatoid arthritis and fibromyalgia. She remains on leflunomide 10 mg daily for the RA. She also is on duloxetine once a day, Abilify once a day, clonidine at night, gabapentin 300 mg at night, and occasional cyclobenzaprine if needed at night anxiety, depression and fibromyalgia. This regimen seems to be helpful with most of her pains. She still admits to some mild pains in the neck, shoulders, lower back, hips, knees and feet. She does not have any significant joint swelling presently. There have been no problems so far with the leflunomide in term some of side effects. 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 Mother History of high blood pressure Social History Household Members: None Alcohol intake: current Alcohol intake frequency: holidays/special occasions only Alcohol type: beer and wine Patient Tobacco Use Status: Never used Tobacco e-Cigarette/Vaping Use: Never Used Substance Use Type: Marijuana Current occupational status: disabled Review of Systems Const Details: Low energy at times. Negative for appetite change, weight change, fever, chills, malaise Eyes Details: Occasional headache. Negative for vision change, dry eyes and dizziness GI Details: Negative indigestion/heartburn, nausea, abdominal pain, bowel changes, diarrhea, constipation and bloody stool. Psych Details: anxiety, depression stable with current regimen Endo Details: Negative for polyuria and polydypsia Iftikhar/Lymph Details: Negative for excessive bruising or bleeding. Physical Exam Vital Signs: Last Vital Signs Temp 97.2 F 10/20/22 10:27 BMI result Body Mass Index 35.3 APPEARANCE: Patient in no acute distress EYES no redness, pupils equal and reactive to light, eyelids normal EXTREMITIES: No edema, no calf tenderness, normal peripheral pulses. JOINT EXAM: Cervical Spine:? Full range of motion with some discomfort felt in the midthoracic spine region. No cervical muscle or cervical spine tenderness. Thoracic Spine:? Mild tenderness in the midthoracic spine region.. Lumbar Spine: Alignment normal.? Full range of motion without pain, no tenderness. Hands: LEFT:? Normal pain-free range of motion. Slight tenderness at second PIP. No swelling, increased warmth or erythema. Able to make a full fist and has a good supervisor decorating strength. ? RIGHT:? Normal pain-free range of motion with slight tenderness at the 2nd 3rd MCP joints without swelling. out tenderness, swelling, increased warmth or erythema.? Able to make a full fist and has good supervisor decorating strength. Wrists: LEFT: Slight pain with flexion extension 80 degrees. Minimal dorsal tenderness without swelling, increased warmth or erythema. ? RIGHT: Normal pain-free range of motion without tenderness, swelling, increased warmth or erythema. Elbows: Normal pain-free range of motion without tenderness, swelling, increased warmth or erythema. Shoulders:? Full range of motion without pain. No tenderness, weakness, swelling, increased warmth or erythema. Hips: Full range of motion without pain. Hip bursa: No tenderness. Knees:? Normal pain-free range of motion without tenderness, swelling, increased warmth or erythema.? There is no effusion or crepitation Ankles:? Normal pain-free range of motion without tenderness, swelling, increased warmth or erythema. Feet:? LEFT:Normal pain-free range of motion without tenderness, swelling, increased warmth or erythema. ? RIGHT: Normal pain-free range of motion. Tenderness to palpation over the center, dorsal aspect of the foot. No swelling, increased warmth or erythema. Tender points: mild tenderness to digital palpation at the occiput, trapezius, second rib, lateral epicondyle, knees, greater trochanterl area bilaterally. ? Results Reviewed Results Reviewed: Laboratory Tests 10/14/22 10/14/22 10/14/22 10:31 10:31 10:31 WBC 7.7 Hgb 14.1 ESR 6 Creatinine 0.80 AST 13 ALT 14 C-Reactive Protein 0.33 Assessment & Plan Assessment & Plan (1) Chronic upper back pain: Code(s): M54.9 - Dorsalgia, unspecified; G89.29 - Other chronic pain (2) exterminator helper use of drug: Code(s): Z79.899 - Other long chain dyeing machine operator (current) drug therapy (3) Fibromyalgia: Code(s): M79.7 - Fibromyalgia (4) Seropositive rheumatoid arthritis: Comment: Methotrexate: Both oral and subcutaneous-GI upset Leflunomide: May 2020- off for a period of time due to running out of medication then restarted May 2021-present Code(s): M05.9 - Rheumatoid arthritis with rheumatoid factor, unspecified Plan Rheumatoid arthritis with what looks to be good control of synovitis with current treatment. She still has a number of pains and tender points consistent with fibromyalgia. There could be degenerative disease in the lumbar, thoracic or cervical spine regions. The increased pain in the thoracic spine I think merits a x-ray to see if this any other pathology is present. She will continue with the medicines as above. Lab work would be due again in about 3 months-a few days before her next return visit. Orders: Orders XR thoracic spine 2V Today G89.29 - Other chronic pain, M05.9 - Rheumatoid arthritis with rheumatoid factor, unspecified, M54.9 - Dorsalgia, unspecified Alanine Aminotransferase Today M05.9 - Rheumatoid arthritis with rheumatoid factor, unspecified, Z79.899 - Other long chain dyeing machine operator (current) drug therapy Aspartate Amino Transferase Today M05.9 - Rheumatoid arthritis with rheumatoid factor, unspecified, Z79.899 - Other fdc (current) drug therapy Creatinine Today M05.9 - Rheumatoid arthritis with rheumatoid factor, unspecified, Z79.899 - Other long chain dyeing machine operator (current) drug therapy C Reactive Protein Today M05.9 - Rheumatoid arthritis with rheumatoid factor, unspecified Complete Blood Count Auto Diff Today M05.9 - Rheumatoid arthritis with rheumatoid factor, unspecified, Z79.899 - Other long chain dyeing machine operator (current) drug therapy Erythrocyte Sedimentation Rate Today M05.9 - Rheumatoid arthritis with rheumatoid factor, unspecified Coding Level of Care Code Est Pt Level 3 (84179) Diagnoses Chronic upper back pain M54.9; G89.29 nursing home use of drug Z79.899 Fibromyalgia M79.7 Seropositive rheumatoid arthritis M05.9
[2022-10-20 10:27] VITALS: TEMP 36.2; BMI 35.3
== END 2022-10-20 11:11 | disposition home or self-care (01) ==
PROVIDERS: PCP Internal Medicine; Visit Provider Internal Medicine Rheumatology
DX: M05.89 Other rheumatoid arthritis with rheumatoid factor of multiple sites (principal); M79.7 Fibromyalgia; M54.9 Dorsalgia, unspecified; G89.29 Other chronic pain; Z79.899 Other long term (current) drug therapy
CPT/HCPCS: 99214

== ENCOUNTER → 2022-10-20 10:01 | Outpatient (BNVA) | payer MEDICAID, SELFPAY | PROVIDERS: PCP Internal Medicine; Visit Provider Internal Medicine Rheumatology ==

== ENCOUNTER 2022-11-09 10:16 | Day surgery (SDC) | payer MEDICAID, SELFPAY ==
[2022-11-04 09:07] VITALS: BMI 35.3
--- NOTE | 2022-11-05 13:12 | HO.ANESPROP2 ---
Documented by User: Leda Zapata NP 11/05/22 13:15 HPI - Anesthesia Eval Consult details Narrative: 47yo F for Upper Endoscopy and Colonoscopy Pulmo cleared 05/2022. 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 Mother History of high blood pressure Surgical History Surgical History History of colonoscopy History of partial hysterectomy Hx of endoscopy Hx of tubal ligation Social History Social History Household Members: None Alcohol intake: current Alcohol intake frequency: holidays/special occasions only Alcohol type: beer and wine Patient Tobacco Use Status: Former Tobacco user Quit Date: 2019 Tobacco use type: Cigarette e-Cigarette/Vaping Use: Never Used Substance Use Type: Marijuana Current occupational status: disabled Meds Allergies Allergy/AdvReac Type Severity Reaction Status Date / Time penicillin G [PENICILLIN G] Allergy Severe DIZZINESS Verified 11/09/22 10:33 tramadol Allergy Severe Vomiting Verified 11/09/22 10:33 and sweats Home Medications Medication Instructions Recorded Confirmed Last Taken Type montelukast 10 mg tablet 10 mg PO BEDTIME 05/22/20 11/04/22 Unknown History (Singulair) pantoprazole 40 mg tablet,delayed 40 mg PO DAILY 05/22/20 11/04/22 Unknown History release albuterol sulfate 90 mcg/actuation 2 puff inhalation Q6H PRN Wheezing 05/23/20 11/04/22 Unknown History aerosol inhaler (ProAir HFA) clonidine HCl 0.1 mg tablet 0.1 mg PO BID 11/19/20 11/04/22 11/09/22 History loratadine 10 mg tablet 10 mg PO QAM PRN allergies 11/19/20 11/04/22 Unknown History aspirin 81 mg tablet,delayed 81 mg PO QAM 05/20/21 11/09/22 11/02/22 History release atorvastatin 40 mg tablet 40 mg PO BEDTIME 05/20/21 11/04/22 Unknown History aripiprazole 15 mg tablet 15 mg PO BEDTIME 11/19/21 11/04/22 Unknown History duloxetine 60 mg capsule,delayed 60 mg PO BID 11/19/21 11/04/22 11/09/22 History release budesonide-formoterol HFA 160 2 puff inhalation BID 03/09/22 11/04/22 Unknown History mcg-4.5 mcg/actuation aerosol inhaler (Symbicort) cyclobenzaprine 10 mg tablet 10 mg PO QPM 10/20/22 11/04/22 Unknown History hydroxyzine HCl 25 mg tablet 25 - 50 mg PO Q6H PRN anxiety 10/20/22 11/04/22 Unknown History melatonin 5 mg tablet 5 - 10 mg PO BEDTIME PRN insomnia 10/20/22 11/04/22 Unknown History Exam Exam Date and Time: November 05, 2022 1312 Height,Weight and Vital Signs: Height 4 ft 11 in Weight 79.379 kg Pertinent Lab Results Pertinent Lab Results: Laboratory Tests 10/12/22 10/14/22 10/14/22 11:06 10:31 10:31 WBC 7.7 Hgb 14.1 Hct 43.0 Plt Count 231 Sodium 142 Potassium 3.9 Chloride 111 H Carbon Dioxide 25 BUN 9 Creatinine 0.80 Assessment and Plan Assessment Anesthesia Assessment: Chart Reviewed Documented by User: Bette Hutchison MD 11/09/22 11:38 [facility] Active Problems Active Problems: All Active Problems (Updated 11/09/22 @ 10:18 by Bette Hutchison MD) Mild obstructive sleep apnea (Acute) Restless legs (Acute) Severe persistent allergic asthma (Acute) Environmental allergies (Acute) Asthma (Acute) Hemorrhoids (Acute) BONNIE on CPAP (Acute) Chronic upper back pain (Acute) terminal make up operator use of drug (Acute) Fibromyalgia (Acute) 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 Mother History of high blood pressure Family history of problems with anesthesia: No Surgical History Surgical History History of colonoscopy History of partial hysterectomy Hx of endoscopy Hx of tubal ligation History of Problems with Anesthesia: No Social History Social History Household Members: None Alcohol intake: current Alcohol intake frequency: holidays/special occasions only Alcohol type: beer and wine Patient Tobacco Use Status: Former Tobacco user Quit Date: 2019 Tobacco use type: Cigarette e-Cigarette/Vaping Use: Never Used Substance Use Type: Marijuana Current occupational status: disabled Meds Allergies Allergy/AdvReac Type Severity Reaction Status Date / Time penicillin G [PENICILLIN G] Allergy Severe DIZZINESS Verified 11/09/22 10:33 tramadol Allergy Severe Vomiting Verified 11/09/22 10:33 and sweats Home Medications Medication Instructions Recorded Confirmed Last Taken Type montelukast 10 mg tablet 10 mg PO BEDTIME 05/22/20 11/04/22 Unknown History (Singulair) pantoprazole 40 mg tablet,delayed 40 mg PO DAILY 05/22/20 11/04/22 Unknown History release albuterol sulfate 90 mcg/actuation 2 puff inhalation Q6H PRN Wheezing 05/23/20 11/04/22 Unknown History aerosol inhaler (ProAir HFA) clonidine HCl 0.1 mg tablet 0.1 mg PO BID 11/19/20 11/04/22 11/09/22 History loratadine 10 mg tablet 10 mg PO QAM PRN allergies 11/19/20 11/04/22 Unknown History aspirin 81 mg tablet,delayed 81 mg PO QAM 05/20/21 11/09/22 11/02/22 History release atorvastatin 40 mg tablet 40 mg PO BEDTIME 05/20/21 11/04/22 Unknown History aripiprazole 15 mg tablet 15 mg PO BEDTIME 11/19/21 11/04/22 Unknown History duloxetine 60 mg capsule,delayed 60 mg PO BID 11/19/21 11/04/22 11/09/22 History release budesonide-formoterol HFA 160 2 puff inhalation BID 03/09/22 11/04/22 Unknown History mcg-4.5 mcg/actuation aerosol inhaler (Symbicort) cyclobenzaprine 10 mg tablet 10 mg PO QPM 10/20/22 11/04/22 Unknown History hydroxyzine HCl 25 mg tablet 25 - 50 mg PO Q6H PRN anxiety 10/20/22 11/04/22 Unknown History melatonin 5 mg tablet 5 - 10 mg PO BEDTIME PRN insomnia 10/20/22 11/04/22 Unknown History Exam Height,Weight and Vital Signs: Height 4 ft 11 in Weight 79.379 kg Vital Signs Temp Pulse Resp BP Pulse Ox O2 Del Method 11/09/22 10:51 102 H 16 11/09/22 10:40 99.7 F 112 H 16 139/90 H 97 Room Air Airway Mallampati Class: II TM Dist: >3cm Neck ROM: Full Partial: Upper Loose/Missing/Broken Teeth: Yes (Partial top. Broken tooth top Right. Denies loose teeth) Heart: RRR Lungs: CTAB. S/p respiratory treatment Assessment and Plan Assessment Anesthesia Assessment: Anesthesia Plan Discussed Final Anesthetic Review Family History of Problems with Anesthesia: No History of Problems with Anesthesia: No NPO: Yes ASA Class: III Final Preanesthetic Review: No Changes in Pt Med Stat, Meds/Allgs Chart Reviewed, Consent Obtained/Reviewed and Anes Risks/Benef Reviewed Patient Risk: Intermediate Procedure Risk: Low Assessment/Block/Sedation in SS: Assess/Block/Sedation-SS Anesthetic Plan Anesthetic Plan: GA and MAC: Disposition: Standard PACU
[2022-11-09 10:40] VITALS: BP 139/90; PULSE 112; RESP 16; TEMP 37.6; O2SAT 97; BMI 34.3
[2022-11-09] MEDS: Albuterol Sulfate (0.083%) 2.5 MG/3 ML VIAL.NEB INHALE (10:48)
[2022-11-09] MEDS: Lactated Ringers 1,000 ML 100 ML IVCONT (10:50)
[2022-11-09 10:51] VITALS: PULSE 102; RESP 16; O2SAT 97
--- NOTE | 2022-11-09 11:24 | P.HPSUR_ITS ---
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 Seropositive rheumatoid arthritis Sleep apnea) History of Previous Operations: Relevant previous surgery/procedure and date(s) (History of colonoscopy History of partial hysterectomy Hx of endoscopy Hx of tubal ligation) Allergies: Allergies Allergy/AdvReac Type Severity Reaction Status Date / Time penicillin G [PENICILLIN G] Allergy Severe DIZZINESS Verified 11/09/22 10:33 tramadol Allergy Severe Vomiting Verified 11/09/22 10:33 and sweats Review of Systems Sugical H&P ROS: Negative: Constitution, Cardiovascular, Respiratory, Neurological, Psychiatric, Hem-Onc, Allergic/Immunologic, Gastrointestinal, Genitourinary, Musculoskeletal, Integumentary, Endocrine and Eyes/Ears/Nose/Throat Exam Surgical H&P Exam: Normal: HEENT, Normal: Heart, Normal: Lungs, Normal: Extremit ies, Normal: Abdomen, Normal: Skin and Normal: Neurological Plan Diagnosis/Plan: Unchanged I have reviewed the history and physical and performed a pertinent physical examination on my patient. No changes have occurred unless specified. Time Spent With Patient Time: Total time managing care of this patient today ____ minutes.
--- NOTE | 2022-11-09 11:25 | W.PM.OPN ---
Operative Note Operative Note Date of Service: 11/09/22 Narrative: Operative Information Procedure Description: EGD, Colonoscopy Indication: GERD< screening Anesthesia: MAC FLEXIBLE TRANSORAL UPPER GASTROINTESTINAL ENDOSCOPY AND COLONOSCOPY PROCEDURE NOTE UPPER ENDOSCOPY Consent: Indications for the procedure and potential complications of bleeding, perforation, reaction to medications and missed diagnosis were discussed with the patient and informed consent was obtained. Instrument: Olympus GIF H 190 J mid size upper endoscope Monitoring: Vital signs and clinical assessment, continuous EKG monitoring, Pulse oximetry, Carbon Dioxide monitoring and blood pressure monitoring were done throughout the procedure. Procedure: The patient was placed in the left lateral decubitis position and pre-procedure medications were administered and a bite block was placed. The endoscope was inserted into the mouth and advanced under direct vision to the third part of duodenum. A careful inspection was made as the upper endoscope was withdrawn including a retroflexed examination of the proximal stomach; Findings and interventions are described below. Findings: Larynx:normal Esophagus: GE junction at 37 cm, diaphragm hiatus at 37 cm, bogginess and erythema at GEJ, bx taken from here and distal/proximal esophagus Stomach: Patchy erythema and scarring. Biopsies were obtained. Grade 2 flap valve on retroflexed examination of the cardia. Reduced gastric movement Duodenum: Normal bulb and descending duodenum, Intervention: Biopsies as noted above COLONOSCOPY Instrument: Olympus variable stiffness pediatric scope 190L Colonoscopy Monitoring: Vital signs and clinical assessment, continuous EKG monitoring, Pulse oximetry, Carbon Dioxide monitoring and blood pressure monitoring were done throughout the procedure. Colon withdrawal time was 8 minutes. Procedure: The patient was placed in the left lateral decubitis position and pre-procedure medications were administered. After a digital rectal examination of the ano-rectum, the video colonoscope was inserted into the rectum and advanced through the colon to the cecum/TI. The colonoscope was slowly withdrawn in a retrograde panoramic fashion and the colon mucosa was carefully examined including a retroflexed view of the rectum. Findings and interventions are described below. Procedure Difficulty:moderate Findings: Terminal Ileum-normal Cecum:normal Ascending Colon: normal Transverse Colon -normal Descending Colon:normal Sigmoid Colon: normal Rectum: Retroflexion with small internal hemorrhoids, grade I Anorectum - normal Colon preparation: [place] Bowel Preparation Scale Right colon; 2 Transverse colon: 2 Left colon; 2 (0 = Unprepared colon segment with mucosa not seen due to solid stool that cannot be cleared. 1 = Portion of mucosa of the colon segment seen, but other areas of the colon segment not well seen due to staining, residual stool and/or opaque liquid. 2 = Minor amount of residual staining, small fragments of stool and/or opaque liquid, but mucosa of colon segment seen well. 3 = Entire mucosa of colon segment seen well with no residual staining, small fragments of stool or opaque liquid) Impression and Post Procedure Diagnosis: Endoscopy Findings: gastritis esophagitis possible gastroparesis Colonoscopy Findings: internal hemorrhoids Plan: Await Pathology results Repeat Colonoscopy in 10 years or earlier if clinically indicated High fiber diet leaflet avoid straining at stool, epsom salts and sitz bath, anusol supps or cream GERD precaution, weight loss, review compliance and timing of PPI- can change preparation if needed Above findings were reviewed with the patient and relevant handouts were provided if indicated.
[2022-11-09 12:23] VITALS: BP 123/75; PULSE 102; RESP 20; TEMP 36.2; O2SAT 97
[2022-11-09 12:38] VITALS: BP 132/84; PULSE 93; RESP 20; TEMP 36.7; O2SAT 98
== END 2022-11-09 13:10 | disposition home or self-care (01) ==
PROVIDERS: PCP Family Medicine; Visit Provider Internal Medicine Gastroenterology
PROC: (CPT 45378; principal; 2022-11-09 11:40)
DX: Z12.11 Encounter for screening for malignant neoplasm of colon (principal); K64.0 First degree hemorrhoids; K29.60 Other gastritis without bleeding; K20.90 Esophagitis, unspecified without bleeding; K21.9 Gastro-esophageal reflux disease without esophagitis; K58.9 Irritable bowel syndrome, unspecified; J45.50 Severe persistent asthma, uncomplicated; R06.02 Shortness of breath; M05.9 Rheumatoid arthritis with rheumatoid factor, unspecified; G47.33 Obstructive sleep apnea (adult) (pediatric); Z99.89 Dependence on other enabling machines and devices; Z79.631 Long term (current) use of antimetabolite agent; Z79.899 Other long term (current) drug therapy
CPT/HCPCS: 45378; 43239; 88305; 88342; 94640

== ENCOUNTER → 2022-11-09 10:16 | Outpatient (BNV) | payer MEDICAID, SELFPAY | PROVIDERS: PCP Family Medicine; Visit Provider Internal Medicine Gastroenterology | DX: Z12.11 Encounter for screening for malignant neoplasm of colon (principal); K21.00 Gastro-esophageal reflux disease with esophagitis, without bleeding; K29.70 Gastritis, unspecified, without bleeding; K64.0 First degree hemorrhoids | CPT/HCPCS: 43239; 45378 ==

== ENCOUNTER → 2022-11-23 10:53 | Outpatient (AMB) | payer MEDICAID, SELFPAY ==
--- NOTE | 2022-11-23 10:55 | A.OFFVIS_ITS ---
Intake Vital Signs 11/23/22 11:00 Height 4 ft 11 in Weight 172 lb BMI 34.7 BP 122/74 Blood Pressure Location Lt brachial Position Sitting Pulse 89 Intake Visit Reasons: s/p egd/colon- Daniel Intake Note: Patient follow up for EGD/Colonoscopy results Patient cc: rectal bleeding on and off. Denies any other GI issues. 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 Accompanied by: Daughter Allergies penicillin G [PENICILLIN G] Allergy (Severe, Verified 11/09/22 10:33) DIZZINESS tramadol Allergy (Severe, Verified 11/09/22 10:33) Vomiting and sweats Medication List - Last Reconciled 11/23/22 by YESICA Davis-Annemarie albuterol sulfate 90 mcg/actuation (ProAir HFA) 2 puffs inhalation Q6H PRN aripiprazole 15 mg PO BEDTIME ascorbic acid (vitamin C) (Vitamin C) 500 mg PO QAM 30 days aspirin 81 mg PO QAM atorvastatin 40 mg PO BEDTIME budesonide-formoterol 160-4.5 mcg/actuation (Symbicort) 2 puffs inhalation BID clonidine HCl 0.1 mg PO BID cyclobenzaprine 10 mg PO QPM docusate sodium (Colace) 200 mg (2 x 100 mg) PO BEDTIME duloxetine 60 mg PO BID gabapentin 300 mg PO BEDTIME hydrocortisone 2.5% (Proctosol HC) 1 appl ND BEDTIME PRN hydroxyzine HCl 25 - 50 mg PO Q6H PRN ipratropium-albuterol 0.5 mg-3 mg(2.5 mg base)/3 mL 3 mL inhalation Q4-6H PRN 30 days leflunomide 10 mg PO QAM loratadine 10 mg PO QAM PRN melatonin 5 - 10 mg PO BEDTIME PRN methylcellulose (laxative) (Fiber Laxative (methylcellulose)) 500 mg PO BID montelukast (Singulair) 10 mg PO BEDTIME pantoprazole 40 mg PO DAILY HPI HPI Comments History of Present Illness Details A 47 y/o female f/u after EGD and colonoscopy- Dr. Fredy Gunn is worse- taking pantoprazole 40 mg-she does not think it gives her good coverage- was better with omeprazole Appetite is ok-- wt gain- gets more hungry at night and eats-- lots night time snacks- 8 or 9 at night. 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 Mother History of high blood pressure Social History Household Members: None Alcohol intake: current Alcohol intake frequency: holidays/special occasions only Alcohol type: beer and wine Patient Tobacco Use Status: Former Tobacco user Quit Date: 2019 Tobacco use type: Cigarette e-Cigarette/Vaping Use: Never Used Substance Use Type: Marijuana Current occupational status: disabled Physical Exam Vital Signs: Last Vital Signs Pulse 89 11/23/22 11:00 BP 122/74 11/23/22 11:00 BMI result Body Mass Index 34.7 Const General: cooperative, healthy appearing and comfortable Orientation/consciousness: patient oriented x3 Limitations: language barrier Eyes Sclerae: sclerae normal Cardio Rate: regular rate Rhythm: regular rhythm Heart sounds: S1 normal heart sound present and S2 normal heart sound present GI Palpation (GI): Soft to palpation and nontender Auscultation: normal bowel sounds Neuro General: patient oriented x3 Extrem General: Yes full ROM Psych Mental Status: mental status grossly normal Speech and movement: Clear speech present Affect: normal affect Attitude: cooperative Results Reviewed Results Reviewed: mpression and Post Procedure Diagnosis: Endoscopy Findings: gastritis esophagitis possible gastroparesis Colonoscopy Findings: internal hemorrhoids Plan: Await Pathology results Repeat Colonoscopy in 10 years or earlier if clinically indicated High fiber diet leaflet avoid straining at stool, epsom salts and sitz bath, anusol supps or cream GERD precaution, weight loss, review compliance and timing of PPI- can change preparation if needed Above findings were reviewed with the patient and relevant handouts were provided if indicated. Diagnosis A. Stomach, biopsy: Oxyntic mucosa with moderate chronic inactive inflammation; no Helicobacter organisms seen. B. GE junction, biopsy: - Cardiofundic-type mucosa with mild chronic inactive inflammation; no intestinal metaplasia seen. - No squamous epithelium present. C. Esophagus, distal, biopsy: Active esophagitis (occasional eosinophils and neutrophils). D. Esophagus, proximal, biopsy: Squamous epithelium within normal limits; no inflammation seen. Clinical History Pre-Op Dx: IBS, GERD Post-Op Dx: Hemorrhoids, possible gastroparesis, gastritis, esophagitis Microscopic Description A-D. Microscopic sections reviewed. Immunostain for H. pylori is non-reactive (A). Material Received A. Bx stomach B. Bx GE junction C. Bx distal esophagus D. Bx proximal esophagus Gross Description Received in 4 parts. Part A: Received in formalin labeled ?stomach bx's? are 2 glistening, semitranslucent, soft, conway-pink irregular tissue fragments measuring 0.1 and 0.25 cm in greatest dimension which are submitted in toto in a single cassette labeled A. Part B: Received in formalin labeled ?bx GE junction? is a 0.3 cm in greatest dimension glistening, semitranslucent, soft, conway-pink rectangular tissue fragment which is submitted in toto in a single cassette labeled B. Part C: Received in formalin labeled ?bx distal esophagus? are 3 glistening, semitranslucent, astudillo-white Patient: Mariluz Pisano Age/Sex: 47/F MR#: [id number] Page 1 of 2 Assessment & Plan Assessment & Plan (1) Acid reflux: Comment: Consistent ppi switched to Omeprazole 30 mg Reflux precautions= again reviewed Encouraged Dietary modifications Avoid weight gain Code(s): K21.9 - Gastro-esophageal reflux disease without esophagitis (2) Hemorrhoids: Comment: hydrocortisone 2.5% (Proctosol HC) HFD avoid strain Code(s): K64.9 - Unspecified hemorrhoids (3) Esophagitis: Code(s): K20.90 - Esophagitis, unspecified without bleeding (4) Early satiety: Code(s): R68.81 - Early satiety Plan FODMAP GES Orders: Orders NM gastric emptying study Today K21.9 - Gastro-esophageal reflux disease without esophagitis, R68.81 - Early satiety Medications: New omeprazole 40 mg (2 x 20 mg) PO DAILY 30 days 60 caps 5RF Patient Instructions: Omeprazole 40 mg Reflux precautions HFD FOD map- try to ID culprits Coding Level of Care Code Est Pt Level 3 (55515) Diagnoses Acid reflux K21.9 Hemorrhoids K64.9 Esophagitis K20.90 Early satiety R68.81 Time Spent (min) 30
[2022-11-23 11:00] VITALS: BP 122/74; PULSE 89; BMI 34.7
== END ==
PROVIDERS: PCP Family Medicine; Visit Provider Physician Assistant
DX: K21.9 Gastro-esophageal reflux disease without esophagitis (principal); K64.9 Unspecified hemorrhoids; K20.90 Esophagitis, unspecified without bleeding; R68.81 Early satiety
CPT/HCPCS: 99213

== ENCOUNTER → 2022-11-23 10:53 | Outpatient (BNVA) | payer MEDICAID, SELFPAY | PROVIDERS: PCP Family Medicine; Visit Provider Physician Assistant | DX: K21.9 Gastro-esophageal reflux disease without esophagitis (principal); K64.9 Unspecified hemorrhoids; K20.90 Esophagitis, unspecified without bleeding; R68.81 Early satiety | CPT/HCPCS: 99212 ==

== ENCOUNTER → 2022-12-08 07:53 | Outpatient (REF) | payer MEDICAID, SELFPAY | LOC: HO.NUCMED 07:53 | PROVIDERS: PCP Family Medicine; Visit Provider Physician Assistant | DX: R68.81 Early satiety (principal); K21.9 Gastro-esophageal reflux disease without esophagitis | CPT/HCPCS: 78264; A9541 ==

== ENCOUNTER 2022-12-31 09:22 | Outpatient (REF) | payer MEDICAID, SELFPAY ==
--- NOTE | ~2022-12-31 | XR_ITS ---
EXAMINATION: XR FOOT, RIGHT CLINICAL INFORMATION: Pain in right foot COMPARISON: 09/26/2017 TECHNIQUE: AP, lateral, and oblique views of the right foot. FINDINGS: Mild spurring along the dorsal aspect of the calcaneus redemonstrated. The joint spaces are maintained. Alignment is preserved. No displaced fracture. Minimal degenerative changes 1st metatarsophalangeal joint with minimal joint space narrowing and hypertrophic change. XR/XR foot RT 2V IMPRESSION: 1. Mild spurring along the dorsal aspect of the calcaneus redemonstrated. 2. Minimal degenerative changes 1st metatarsophalangeal joint. Recommend followup imaging in 10-14 days if fracture is suspected.
--- NOTE | ~2022-12-31 | XR_ITS ---
EXAMINATION: XR THORACOLUMBAR SPINE CLINICAL INFORMATION: Back pain rheumatoid arthritis COMPARISON: None available. TECHNIQUE: 3 views of the thoracic spine. FINDINGS: Degenerative changes on very limited imaging of the partially imaged mid to lower cervical spine. Radiodense disc-like structure projecting over the upper cervical spine and recommend correlation with clinical exam to determine etiology. Surgical clips in the right upper quadrant of the abdomen. Mild multilevel degenerative changes in the thoracic spine. The bones are diffusely demineralized. XR/XR thoracic spine 2V IMPRESSION: Mild multilevel degenerative changes in the thoracic spine.
[2022-12-31 09:33] LABS: MANUAL DIFF FLAG NO
[2022-12-31 09:50] LABS: Basophils Percent Auto 0.5 % (0-2); Eosinophils Absolute Auto 0.4 X10*3/uL (0.0-0.4); Eosinophils Percent Auto 4.6 % (0-4); Hematocrit 45.8 % (37.0-47.0); Hemoglobin 14.7 g/dl (12.0-16.0); Imm Gran Abs Auto 0.02 X10*3/uL (0.00-0.03); Imm Gran Pct Auto 0.3 % (0.0-0.4); Mean Corpuscular HGB Conc 32.1 g/dl (31.0-35.0); Mean Corpuscular Hemoglobin 28.2 pg (27.0-33.0); Mean Corpuscular Volume 87.7 fL (80.0-98.0); Mean Platelet Volume 10.7 fL (9.4-12.3); Monocytes Absolute Auto 0.5 X10*3/uL (0.1-1.2); Monocytes Percent Auto 6.4 % (2-11); Neutrophils Absolute Auto 3.8 x10*3/uL (2.0-8.3); Neutrophils Percent Auto 49.2 % (45-73); Platelet Count 219 X10*3/uL (160-400); Red Blood Count 5.22 X10*6/uL (4.20-5.50); Red Cell Distribution Width 12.8 % (11.0-16.0); White Blood Count 7.7 X10*3/uL (4.8-10.8)
[2022-12-31 10:46] LABS: Erythrocyte Sedimentation Rate 7 MM/HR (0-20)
[2022-12-31 10:49] LABS: Alanine Aminotransferase 15 U/L (0-31); Aspartate Amino Transferase 13 U/L (5-31); C Reactive Protein 0.55 mg/dL (< or = 0.50); Estimated Glomerular Filt Rate > 60
== END 2022-12-31 09:23 | disposition home or self-care (01) ==
LOC: HO.LAB 09:22
PROVIDERS: PCP Family Medicine; Visit Provider Internal Medicine Rheumatology
DX: M05.9 Rheumatoid arthritis with rheumatoid factor, unspecified (principal); M54.9 Dorsalgia, unspecified; G89.29 Other chronic pain; M79.671 Pain in right foot; Z79.899 Other long term (current) drug therapy
CPT/HCPCS: 36415; 72070; 73620; 82565; 84450; 84460; 85025; 85652; 86140

== ENCOUNTER 2023-03-28 10:26 | Outpatient (REF) | payer MEDICAID, SELFPAY ==
[2023-03-28 12:03] LABS: MANUAL DIFF FLAG NO
[2023-03-28 12:18] LABS: Basophils Absolute Auto 0.1 X10*3/uL (0.0-0.2); Basophils Percent Auto 0.9 % (0-2); Eosinophils Absolute Auto 0.3 X10*3/uL (0.0-0.4); Eosinophils Percent Auto 3.8 % (0-4); Hematocrit 47.8 % (37.0-47.0); Hemoglobin 15.4 g/dl (12.0-16.0); Imm Gran Abs Auto 0.02 X10*3/uL (0.00-0.03); Imm Gran Pct Auto 0.3 % (0.0-0.4); Lymphocytes Absolute Auto 2.6 X10*3/uL (1.2-4.9); Lymphocytes Percent Auto 37.8 % (20-40); Mean Corpuscular HGB Conc 32.2 g/dl (31.0-35.0); Mean Corpuscular Hemoglobin 27.9 pg (27.0-33.0); Mean Corpuscular Volume 86.6 fL (80.0-98.0); Mean Platelet Volume 11.8 fL (9.4-12.3); Monocytes Absolute Auto 0.4 X10*3/uL (0.1-1.2); Monocytes Percent Auto 6.1 % (2-11); Neutrophils Absolute Auto 3.5 x10*3/uL (2.0-8.3); Neutrophils Percent Auto 51.1 % (45-73); Platelet Count 242 X10*3/uL (160-400); Red Blood Count 5.52 X10*6/uL (4.20-5.50); Red Cell Distribution Width 12.8 % (11.0-16.0); White Blood Count 6.9 X10*3/uL (4.8-10.8)
[2023-03-28 12:33] LABS: Alanine Aminotransferase 23 U/L (0-31); Aspartate Amino Transferase 18 U/L (5-31); C Reactive Protein 0.35 mg/dL (< or = 0.50); Estimated Glomerular Filt Rate > 60
[2023-03-28 13:00] LABS: Erythrocyte Sedimentation Rate 5 MM/HR (0-20)
== END 2023-03-28 10:27 | disposition home or self-care (01) ==
LOC: HO.10HDL 10:26
PROVIDERS: Visit Provider Internal Medicine Rheumatology
DX: M05.9 Rheumatoid arthritis with rheumatoid factor, unspecified (principal); Z79.899 Other long term (current) drug therapy
CPT/HCPCS: 36415; 82565; 84450; 84460; 85025; 85652; 86140

== ENCOUNTER 2023-03-31 12:56 | Outpatient (AMB) | payer MEDICAID, SELFPAY ==
--- NOTE | 2023-03-31 12:58 | MHC.OFFVIS ---
Intake Vital Signs 03/31/23 13:00 Height 4 ft 11 in Weight 179 lb 0.246 oz BMI 36.2 BP 112/70 Blood Pressure Location Lt brachial Position Sitting Pulse 114 H Pulse Source Pulse Oximeter Temp 97.7 F Temp Source Skin Pulse Oximetry (%) 96 Oxygen Delivery Method Room Air Intake Visit Reasons: RA Intake Note: Patient last seen 10/20/[address] Cramer, presents today for follow up and test results. Encephalographer Required: Yes Encephalographer Language: Central Sterile Technician Name: Nitish [id number] Information Interpreted: clinical only Accompanied by: Self / Same As Patient Allergies penicillin G [PENICILLIN G] Allergy (Severe, Verified 03/31/23 13:02) DIZZINESS tramadol Allergy (Severe, Verified 03/31/23 13:02) Vomiting and sweats HPI HPI Comments History of Present Illness Details Mariluz Romeo, 47 yo F returns for evaluation of her rheumatoid arthritis. She remains on leflunomide 10 mg daily for the RA. She also is on duloxetine once a day, Abilify once a day, clonidine at night, gabapentin 300 mg at night, and occasional cyclobenzaprine if needed at night anxiety, depression and fibromyalgia. This regimen seems to be helpful with most of her pains. She still admits to some mild pains in the neck, shoulders, lower back, hips, knees and feet. She does not have any significant joint swelling presently. There have been no problems so far with the leflunomide in term some of side effects. Colonoscopy 11/2022 [facility] Medical History (Updated 03/31/23 @ 13:38 by Samantha Smith [facility]) Osteoporosis Thoracic degenerative disc disease Back pain Asthma Fibromyalgia Sleep apnea [facility] methotrexate user Seropositive rheumatoid arthritis Irritable bowel Arthritis Diarrhea Acid reflux Surgical History History of esophagogastroduodenoscopy (EGD) History of laparoscopic cholecystectomy Hx of tubal ligation History of partial hysterectomy Hx of endoscopy History of colonoscopy Family History Father No problems noted. Mother History of high blood pressure Social History Household Members: None Alcohol intake: current Alcohol intake frequency: holidays/special occasions only Alcohol type: beer and wine Patient Tobacco Use Status: Former Tobacco user Quit Date: 2019 Tobacco use type: Cigarette e-Cigarette/Vaping Use: Never Used Substance Use Type: Marijuana Current occupational status: disabled Review of Systems Const All systems reviewed & are unremarkable except as noted in HPI and below Physical Exam Vital Signs: Last Vital Signs Temp 97.7 F 03/31/23 13:00 Pulse 114 H 03/31/23 13:00 BP 112/70 03/31/23 13:00 Pulse Ox 96 03/31/23 13:00 Oxygen Delivery Method Room Air 03/31/23 13:00 BMI result Body Mass Index 36.2 APPEARANCE: Patient in no acute distress EYES no redness, pupils equal and reactive to light, eyelids normal HEART:? Regular rhythm, S1-S2 heard, no murmurs, rubs or gallops. LUNG:? Clear to percussion and auscultation EXTREMITIES: No edema, no calf tenderness, normal peripheral pulses. JOINT EXAM: Cervical Spine:? Full range of motion with some discomfort felt in the midthoracic spine region. No cervical muscle or cervical spine tenderness. Thoracic Spine:? Mild tenderness in the midthoracic spine region.. Lumbar Spine: Alignment normal.? Full range of motion without pain, no tenderness. Hands: LEFT:? Normal pain-free range of motion. Slight tenderness at second PIP. No swelling, increased warmth or erythema. 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 ? RIGHT:? Normal pain-free range of motion with slight tenderness at the 2nd 3rd MCP joints without swelling. out tenderness, swelling, increased warmth or erythema.? Able to make a full fist and has good livestock nutrition territory manager strength. Wrists: LEFT: Slight pain with flexion extension 80 degrees. Minimal dorsal tenderness without swelling, increased warmth or erythema. ? RIGHT: Normal pain-free range of motion without tenderness, swelling, increased warmth or erythema. Elbows: Normal pain-free range of motion without tenderness, swelling, increased warmth or erythema. Shoulders:? Full range of motion without pain. No tenderness, weakness, swelling, increased warmth or erythema. Hips: Full range of motion without pain. Hip bursa: No tenderness. Knees:? Normal pain-free range of motion without tenderness, swelling, increased warmth or erythema.? There is no effusion or crepitation Ankles:? Normal pain-free range of motion without tenderness, swelling, increased warmth or erythema. Feet:? LEFT:Normal pain-free range of motion without tenderness, swelling, increased warmth or erythema. ? RIGHT: Normal pain-free range of motion. Tenderness to palpation over the center, dorsal aspect of the foot. No swelling, increased warmth or erythema. Tender points: mild tenderness to digital palpation at the occiput, trapezius, second rib, lateral epicondyle, knees, greater trochanterl area bilaterally. ? Results Reviewed Results Reviewed: Laboratory Tests 03/28/23 10:30 RBC 5.52 H Hct 47.8 H ESR 5 Creatinine 0.74 Estimated GFR > 60 C-Reactive Protein 0.35 Laboratory Tests 03/28/23 10:30 WBC 6.9 AST 18 ALT 23 Ordering Physician: Gary Cramer MD Date of Service: 12/31/22 Procedure(s): XR thoracic spine 2V Accession Number(s): [id number] cc: Kay Pedersen MD; Gary Cramer MD~ EXAMINATION: XR THORACOLUMBAR SPINE CLINICAL INFORMATION: Back pain rheumatoid arthritis COMPARISON: None available. TECHNIQUE: 3 views of the thoracic spine. FINDINGS: Degenerative changes on very limited imaging of the partially imaged mid to lower cervical spine. Radiodense disc-like structure projecting over the upper cervical spine and recommend correlation with clinical exam to determine etiology. Surgical clips in the right upper quadrant of the abdomen. Mild multilevel degenerative changes in the thoracic spine. The bones are diffusely demineralized. XR/XR thoracic spine 2V IMPRESSION: Mild multilevel degenerative changes in the thoracic spine. Patient: Mariluz Pisano MR#: [id number] : 1975 Acct:[id number] Age/Sex: 47 / F ADM Date: 12/31/22 Loc: HO.LAB Attending Dr: Gary Cramer MD Ordering Physician: Norma Ugarte NP Date of Service: 12/31/22 Procedure(s): XR foot RT 2V Accession Number(s): [id number] cc: Kay Pedersen MD; Shanel,Norma CRACKER AND COOKIE MACHINE OPERATOR~ EXAMINATION: XR FOOT, RIGHT CLINICAL INFORMATION: Pain in right foot COMPARISON: 09/26/2017 TECHNIQUE: AP, lateral, and oblique views of the right foot. FINDINGS: Mild spurring along the dorsal aspect of the calcaneus redemonstrated. The joint spaces are maintained. Alignment is preserved. No displaced fracture. Minimal degenerative changes 1st metatarsophalangeal joint with minimal joint space narrowing and hypertrophic change. XR/XR foot RT 2V IMPRESSION: 1. Mild spurring along the dorsal aspect of the calcaneus redemonstrated. 2. Minimal degenerative changes 1st metatarsophalangeal joint. Recommend followup imaging in 10-14 days if fracture is suspected. 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 (2) Seropositive rheumatoid arthritis: Comment: Methotrexate: Both oral and subcutaneous-GI upset Leflunomide: May 2020- off for a period of time due to running out of medication then restarted May 2021-present Code(s): M05.9 - Rheumatoid arthritis with rheumatoid factor, unspecified (3) Thoracic degenerative disc disease: Code(s): M51.34 - Other intervertebral disc degeneration, thoracic region (4) Hypovitaminosis D: Code(s): E55.9 - Vitamin D deficiency, unspecified Plan #SeroPos RA: Rheumatoid arthritis with what looks to be good control of synovitis with current treatment but still some tender IP joints as per PE. She still has a number of pains and tender points consistent with fibromyalgia. She may benefit from maxing out the Leflunomide so I will increase to 20 mg QD. Her ESR/CRP are WNL and LFTs and Kidney function adequate to continue Leflunomide. #Skilled Nursing Use: We will continue to monitor CBC, LFts and Kidney function especially with the increase in Leflunomide. #DDD Thoracic:There is degenerative disease in the thoracic spine region as noted on Xrays. The increased pain in the thoracic spine may be related to the DDD. She will continue with the medicines as above and use Tylenol PRN. #Osteoporosis/Low Vit D: Thoracic xray identifies bone demineralization. Will discuss further with patient if under care of PCP for Bone Density. I have no record od Bone Density being done. She does not take calcium or vitamin currently. We will discuss more at next visit. Orders: Orders C Reactive Protein 4 Months M05.9 - Rheumatoid arthritis with rheumatoid factor, unspecified, Z79.899 - Other fci (current) drug therapy Complete Blood Count Auto Diff 4 Months M05.9 - Rheumatoid arthritis with rheumatoid factor, unspecified, Z79.899 - Other [facility]ci (current) drug therapy Comprehensive Met. Panel 4 Months M05.9 - Rheumatoid arthritis with rheumatoid factor, unspecified, Z79.899 - Other fci (current) drug therapy Vitamin D 1,25 dihydroxy 4 Months E55.9 - Vitamin D deficiency, unspecified Erythrocyte Sedimentation Rate 4 Months M05.9 - Rheumatoid arthritis with rheumatoid factor, unspecified, Z79.899 - Other fci (current) drug therapy Medications: New leflunomide 20 mg PO DAILY 90 tabs 0RF M05.9 - Rheumatoid arthritis with rheumatoid factor, unspecified Discontinued leflunomide Discontinued Reason: Doctor's Order 10 mg PO QAM 30 tabs 2RF M05.9 - Rheumatoid arthritis with rheumatoid factor, unspecified Coding Level of Care Code Est Pt Level 3 (50683) Diagnoses [facility] use of drug Z79.899 Seropositive rheumatoid arthritis M05.9 Thoracic degenerative disc disease M51.34 Hypovitaminosis D E55.9
[2023-03-31 13:00] VITALS: BP 112/70; PULSE 114; TEMP 36.5; O2SAT 96; BMI 36.2
== END 2023-03-31 13:22 | disposition home or self-care (01) ==
PROVIDERS: PCP Family Medicine; Visit Provider Nurse Practitioner Family
DX: M05.79 Rheumatoid arthritis with rheumatoid factor of multiple sites without organ or systems involvement (principal); M51.34 Other intervertebral disc degeneration, thoracic region; Z79.899 Other long term (current) drug therapy; E55.9 Vitamin D deficiency, unspecified
CPT/HCPCS: 99214

== ENCOUNTER → 2023-03-31 12:56 | Outpatient (BNVA) | payer MEDICAID, SELFPAY | PROVIDERS: PCP Family Medicine; Visit Provider Nurse Practitioner Family | DX: M05.9 Rheumatoid arthritis with rheumatoid factor, unspecified (principal); M51.34 Other intervertebral disc degeneration, thoracic region; E55.9 Vitamin D deficiency, unspecified; Z79.899 Other long term (current) drug therapy | CPT/HCPCS: 99212 ==

== ENCOUNTER 2023-05-20 10:56 | Outpatient (REF) | payer MEDICAID, SELFPAY ==
--- NOTE | ~2023-05-20 | XR_ITS ---
EXAMINATION: XR HIP, LEFT CLINICAL INFORMATION: Left hip pain for months. Left buttock and left hip pain. Denies injury COMPARISON: None available. TECHNIQUE: AP view of the pelvis and 2 views of the left hip. FINDINGS: AP VIEW PELVIS: Transitional anatomy present in the partially imaged lower lumbar spine. Small pelvic calcifications are likely vascular. Bilateral sacral joints are symmetric. LEFT HIP: Minimal degenerative changes left hip. Minimal hypertrophic spurring humeral head. Alignment is preserved. Limited visualization due to body habitus. XR/XR hip LT w PEL1V IMPRESSION: Minimal degenerative changes in the left hip.
[2023-05-20 12:42] LABS: Alanine Aminotransferase 21 U/L (0-31); Alkaline Phosphatase 122 U/L (39-117); Anion Gap 13 (12-20); Aspartate Amino Transferase 20 U/L (5-31); Bilirubin Total 0.4 mg/dL (0.0-1.0); Blood Urea Nitrogen 8 mg/dL (9-16); Calcium 9.4 mg/dL (8.4-10.2); Carbon Dioxide 26 mmol/L (22-29); Chloride 110 mmol/L (96-108); Cholesterol 263 mg/dL (<200); Estimated Glomerular Filt Rate > 60; Glucose Random 122 mg/dL (60-115); HDL Cholesterol 48 mg/dL (>40); LDL Cholesterol Calculated 171 mg/dL (<100); Potassium 3.8 mmol/L (3.3-5.1); Sodium 145 mmol/L (135-145); Total Protein 6.8 g/dL (6.5-8.0); Triglycerides 224 mg/dL (<150)
[2023-05-20 12:59] LABS: TSH reflex Free T4 1.61 uIU/mL (0.32-4.0)
[2023-05-20 14:03] LABS: Reflex LDLD? No
== END 2023-05-20 10:57 | disposition home or self-care (01) ==
LOC: HO.HHCL 10:56
PROVIDERS: Visit Provider Family Medicine
DX: I10 Essential (primary) hypertension (principal); E78.5 Hyperlipidemia, unspecified; M25.552 Pain in left hip
CPT/HCPCS: 36415; 73502; 80053; 80061; 84443

== ENCOUNTER 2023-06-01 13:33 | Outpatient (REF) | payer MEDICAID, SELFPAY ==
--- NOTE | ~2023-06-01 | MM_ITS ---
EXAMINATION: BONE DENSITOMETRY CLINICAL INDICATION: Osteopenia. COMPARISON: This is the patient's baseline examination. TECHNIQUE: Using a [employer] DXA System (software version: 13.1) manufactured by [employer], dual-energy x-ray absorptiometry was performed of the lumbar spine and left hip. The images are of good technical quality. Summary results are attached. FINDINGS: LEFT FEMUR, NECK: BMD 0.922 g/cm2, Z-score -0.5, T-score -0.8, normal. LEFT FEMUR, TOTAL: BMD 0.974 g/cm2, Z-score -0.3, T-score -0.3, normal. AP SPINE L1-L4: BMD 1.032 g/cm2, Z-score -1.6, T-score -1.2, osteopenia. IDENTIFIED RISK FACTORS: Early menopause, secondary osteoporosis, hysterectomy, rheumatoid arthritis. HISTORY OF FRACTURE: None listed. MEDICATIONS: None listed. MM/XR DEXA axial skeleton IMPRESSION: 1. DIAGNOSIS: Osteopenia based on the lowest T-score value of -1.2 in the lumbar spine applying World Health Organization criteria. 2. 10-YEAR FRACTURE RISK PREDICTION, FRAX: Major osteoporotic fracture (clinical spine, forearm, hip or shoulder) 2.1%. Hip fracture 0.1%. 3. Treatment Recommendations: NOF guidelines recommend consideration for treatment in postmenopausal women and men age 50 and older presenting with the following: -A hip or vertebral (clinical or morphometric) fracture. -T-score less than or equal to -2.5 at the femoral neck or spine after appropriate evaluation to exclude secondary causes. -Low bone mass at the hip or spine and a 10-year fracture probability by FRAX of greater than or equal to 3% for hip fracture or greater than or equal to 20% for major osteoporotic fracture based on the [place] adapted WHO algorithm. 4. Other Recommendations: All treatment decisions require clinical judgment and consideration of individual patient factors, including patient preferences, comorbidities, previous drug use, risk factors not captured in the FRAX model (e.g. frailty, falls, vitamin D deficiency, increased bone turnover, interval significant decline in bone density) and possible under or overestimation of fracture risk by FRAX. Additional medical evaluation for secondary cause of low bone mineral density may be appropriate. FUTURE SCAN RECOMMENDATION: People with diagnosed cases of osteoporosis or at high risk for fracture should have regular bone mineral density tests. For patients eligible for Medicare, routine testing is allowed once every 2 years. The testing frequency can be increased to one year for patients who have rapidly progressing disease, those who are receiving or discontinuing medical therapy to restore bone mass, or have additional risk factors.
== END 2023-06-01 13:34 | disposition home or self-care (01) ==
LOC: HO.MAMMO 13:33
PROVIDERS: PCP Family Medicine; Visit Provider Family Medicine
DX: Z12.31 Encounter for screening mammogram for malignant neoplasm of breast (principal); Z13.820 Encounter for screening for osteoporosis; M85.80 Other specified disorders of bone density and structure, unspecified site; Z78.0 Asymptomatic menopausal state
CPT/HCPCS: 77063; 77067; 77080

== ENCOUNTER → 2023-06-01 14:00 | Outpatient (BNV) | payer MEDICAID, SELFPAY | PROVIDERS: PCP Family Medicine; Visit Provider Radiology Diagnostic Radiology | DX: Z12.31 Encounter for screening mammogram for malignant neoplasm of breast (principal) | CPT/HCPCS: 77063; 77067 ==

== ENCOUNTER 2023-08-23 11:06 | Outpatient (REF) | payer MEDICAID, SELFPAY ==
[2023-08-23 13:17] LABS: MANUAL DIFF FLAG NO
[2023-08-23 13:29] LABS: Basophils Absolute Auto 0.1 X10*3/uL (0.0-0.2); Basophils Percent Auto 1.1 % (0-2); Eosinophils Absolute Auto 0.4 X10*3/uL (0.0-0.4); Eosinophils Percent Auto 5.7 % (0-4); Hematocrit 45.9 % (37.0-47.0); Hemoglobin 14.6 g/dl (12.0-16.0); Imm Gran Abs Auto 0.02 X10*3/uL (0.00-0.03); Imm Gran Pct Auto 0.3 % (0.0-0.4); Lymphocytes Absolute Auto 2.3 X10*3/uL (1.2-4.9); Lymphocytes Percent Auto 32.8 % (20-40); Mean Corpuscular HGB Conc 31.8 g/dl (31.0-35.0); Mean Corpuscular Hemoglobin 27.8 pg (27.0-33.0); Mean Corpuscular Volume 87.4 fL (80.0-98.0); Monocytes Absolute Auto 0.5 X10*3/uL (0.1-1.2); Monocytes Percent Auto 6.4 % (2-11); Neutrophils Absolute Auto 3.8 x10*3/uL (2.0-8.3); Neutrophils Percent Auto 53.7 % (45-73); Platelet Count 242 X10*3/uL (160-400); Red Blood Count 5.25 X10*6/uL (4.20-5.50); Red Cell Distribution Width 13.1 % (11.0-16.0)
[2023-08-23 13:56] LABS: Alanine Aminotransferase 25 U/L (0-31); Alkaline Phosphatase 109 U/L (39-117); Anion Gap 12 (12-20); Aspartate Amino Transferase 19 U/L (5-31); Bilirubin Total 0.4 mg/dL (0.0-1.0); Blood Urea Nitrogen 9 mg/dL (9-16); C Reactive Protein 1.06 mg/dL (< or = 0.50); Calcium 9.1 mg/dL (8.4-10.2); Carbon Dioxide 28 mmol/L (22-29); Chloride 107 mmol/L (96-108); Estimated Glomerular Filt Rate > 60; Glucose Random 113 mg/dL (60-115); Potassium 3.6 mmol/L (3.3-5.1); Sodium 143 mmol/L (135-145); Total Protein 6.8 g/dL (6.5-8.0)
[2023-08-23 14:12] LABS: Erythrocyte Sedimentation Rate 8 MM/HR (0-20)
[2023-08-26 15:53] LABS: VITAMIN D (1,25 OH) D3 63 pg/mL; Vit D (1,25-Dihydroxy) Total 63 pg/mL (18-72); Vitamin D (1,25 OH) D2 <8 pg/mL
== END 2023-08-23 11:07 | disposition home or self-care (01) ==
LOC: HO.10HDL 11:06
PROVIDERS: Visit Provider Nurse Practitioner Family
DX: M05.9 Rheumatoid arthritis with rheumatoid factor, unspecified (principal); E55.9 Vitamin D deficiency, unspecified; Z79.899 Other long term (current) drug therapy
CPT/HCPCS: 36415; 80053; 82652; 85025; 85652; 86140

== ENCOUNTER 2023-09-03 14:39 | Inpatient (IN) | payer MEDICAID, SELFPAY ==
--- NOTE | ~2023-09-03 | US_ITS ---
EXAMINATION: US RETROPERITONEAL LIMITED (RENAL ONLY) CLINICAL INFORMATION: Renal failure. COMPARISON: None available. TECHNIQUE: Real-time imaging of the kidneys. FINDINGS: RIGHT KIDNEY: 12.1 x 5.8 x 6.6 cm (SAG x AP x TRV). The kidney is normal in size, contour, and echogenicity. Renal cortical thickness is normal. No calculi or focal parenchymal lesions. No hydronephrosis. LEFT KIDNEY: 11.6 x 5.7 x 5.8 cm (SAG x AP x TRV). The kidney is normal in size, contour, and echogenicity. Renal cortical thickness is normal. No calculi or focal parenchymal lesions. No hydronephrosis. US/US renal BI IMPRESSION: Normal-appearing kidneys..
--- NOTE | ~2023-09-03 | XR_ITS ---
EXAMINATION: XR TIBIA AND FIBULA, LEFT CLINICAL INFORMATION: Cellulitis COMPARISON: None available. TECHNIQUE: AP and lateral views of the left tibia and fibula were obtained., 2 views. FINDINGS: The bones and soft tissues are normal. No fracture. No osseous lesions. XR/XR tibia fibula LT 2V IMPRESSION: No osseous changes to suggest osteomyelitis.
[2023-09-03 14:59] VITALS: BP 148/79; PULSE 107; RESP 16; TEMP 37; O2SAT 96; BMI 36.3
--- NOTE | 2023-09-03 14:59 | ED.GENADULT ---
HPI - General Adult General Chief complaint: General Medical Stated complaint: fever, vomiting, L foot swelling/redness Time Seen by Provider: 09/03/23 16:53 Source: patient Mode of arrival: ambulatory Limitations: no limitations History of Present Illness ED Provider: Dr. Jyotsna Gutierres HPI narrative: Patient comes to emergency room complaining of 6 days of subjective fever, chills, and about 5 days of erythema of the lower extremity that started out in the urbano area migrating up to the left thigh. Patient complaining of localized pain. Patient denies any known injury. Related Data Home Medications ?Medication ?Instructions ?Recorded ?Confirmed montelukast 10 mg tablet 10 mg PO BEDTIME 05/22/20 11/23/22 (Singulair) pantoprazole 40 mg tablet,delayed 40 mg PO DAILY 05/22/20 11/23/22 release albuterol sulfate 90 mcg/actuation 2 puff inhalation Q6H PRN Wheezing 05/23/20 11/23/22 aerosol inhaler (ProAir HFA) clonidine HCl 0.1 mg tablet 0.1 mg PO BID 11/19/20 11/23/22 loratadine 10 mg tablet 10 mg PO QAM PRN allergies 11/19/20 11/23/22 aspirin 81 mg tablet,delayed 81 mg PO QAM 05/20/21 11/23/22 release atorvastatin 40 mg tablet 40 mg PO BEDTIME 05/20/21 11/23/22 aripiprazole 15 mg tablet 15 mg PO BEDTIME 11/19/21 11/23/22 duloxetine 60 mg capsule,delayed 60 mg PO BID 11/19/21 11/23/22 release budesonide-formoterol HFA 160 2 puff inhalation BID 03/09/22 11/23/22 mcg-4.5 mcg/actuation aerosol inhaler (Symbicort) hydroxyzine HCl 25 mg tablet 25 - 50 mg PO Q6H PRN anxiety 10/20/22 11/23/22 melatonin 5 mg tablet 5 - 10 mg PO BEDTIME PRN insomnia 10/20/22 11/23/22 cyclobenzaprine 10 mg tablet 10 mg PO QPM PRN 03/31/23 Previous Rx's ?Medication ?Instructions ?Recorded ipratropium 0.5 mg-albuterol 3 mg 3 ml inhalation Q4-6H PRN wheezing 10/15/20 (2.5 mg base)/3 mL nebulization 30 days #270 mL soln ascorbic acid (vitamin C) 500 mg 500 mg PO QAM 30 days #30 tabs 12/16/20 tablet (Vitamin C) hydrocortisone 2.5 % topical cream 1 appl [place] BEDTIME PRN hemorrhoids 07/01/21 with perineal applicator #30 grams (Proctosol HC) docusate sodium 100 mg capsule 200 mg (2 x 100 mg) PO BEDTIME #60 11/19/21 (Colace) caps methylcellulose (laxative) 500 mg 500 mg PO BID #60 tabs 01/24/23 tablet (Fiber Laxative (methylcellulose)) omeprazole 20 mg capsule,delayed 40 mg (2 x 20 mg) PO QAM #60 caps 03/29/23 release gabapentin 300 mg capsule 300 mg PO BEDTIME #30 caps 05/23/23 leflunomide 20 mg tablet 20 mg PO QAM #90 tabs 06/30/23 Allergies Allergy/AdvReac Type Severity Reaction Status Date / Time penicillin G [PENICILLIN G] Allergy Severe DIZZINESS Verified 09/03/23 14:59 tramadol Allergy Severe Vomiting Verified 09/03/23 14:59 and sweats Review of Systems Review of Systems: Constitutional : No Weight loss, complaining of subjective fever and chills, No Night Sweats, No Fatigue, No Malaise ENT/Mouth : No Hearing loss, No Ear Pain, No Nasal Congestion, No Sinus Pain, No Hoarseness, No sore throat, No Rhinorrhea, No Swallowing Difficulty Eyes: No Eye Pain, No Swelling, No Redness, No Foreign Body, No Discharge, No Vision Changes Cardiovascular : No Chest Pain, No SOB, No Dyspnea on Exertion, No Orthopnea, No Edema, No Palpitations Respiratory : No Cough, No Sputum, No Wheezing, No Smoke Exposure, No Dyspnea Gastrointestinal : No Nausea, No Vomiting, No Diarrhea, No Constipation, No abdominal Pain, No Hematochezia, No Melena Genitourinary : no irregular bleeding, No Dysuria, No Urinary Frequency, No Hematuria, No Urinary Incontinence, No Urgency, No Flank Pain, No Urinary Flow Changes, No Hesitancy Musculoskeletal : No joint pain, No Myalgias, No Joint Swelling Skin : Complaining of erythema extra warmth and pain to the right leg Neuro : No Weakness, No Numbness, No Paresthesias, No Loss of Consciousness, No Dizziness, No Headache Psych : No Anxiety/Panic, No Depression, No SI/HI/AH/VH, No Social Issues, Heme/Lymph: No Bruising, No Bleeding,No Lymphadenopathy Endocrine : No Polyuria, No Polydipsia, No Temperature Intolerance [facility] Past Medical History Medical History Osteoporosis Thoracic degenerative disc disease Back pain Asthma Fibromyalgia Sleep apnea 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 Mother History of high blood pressure Social History Social History Household Members: None Alcohol intake: current Alcohol intake frequency: holidays/special occasions only Alcohol type: beer and wine Patient Tobacco Use Status: Former Tobacco user Tobacco use type: Cigarette e-Cigarette/Vaping Use: Never Used Substance Use Type: Marijuana Advance Directives: No Advance Directives Information Provided: No Do you have a plan to hurt others: No Plan Current occupational status: disabled Physical Exam ED Vital Signs: Vital Signs - 24 hr 09/03/23 14:59 09/03/23 17:19 Temperature 98.6 F Pulse Rate 107 H 95 Respiratory Rate 16 16 Blood Pressure 148/79 H 129/76 Pulse Oximetry 96 96 Oxygen Delivery Method Room Air Room Air BMI result Body Mass Index 36.3 Const Other: Appearance: Alert. Oriented X3. No acute distress. Eyes: Pupils equal, round and reactive to light. ENT: Pharynx normal. Neck: Normal inspection. Neck supple. No lymph nodes noted. No crepitus CVS: Normal heart rate and rhythm. Pulses normal. Normal S1 and S2 Respiratory: No respiratory distress. Breath sounds normal. No Wheezing. No rales Abdomen: Soft and nontender. No rigidity. No distention. Skin: Skin warm and dry. See extremities below Extremities: No lower extremity edema. Left lower extremity, there cellulitis around the tibial area extending upwards to the inner left thigh Neuro: Oriented X 3. No motor deficit. No sensory deficit. Moving all extremities. No slurred speech. CN 2 through 12 grossly intact Psych: calm, cooperative, normal affect Course Course Course Narrative: This is a Rapid Medical Examination (RME) performed by Christian Levine PA-C in triage. Full HPI, ROS, assessment and treatment plan per primary provider in the Main ED. 48 yo female hx of seropositive RA, fibromyalgia, asthma, BONNIE on CPAP, IBS, GERD here for eval of subjective fevers, chills, nausea, vomiting x1 week. no known sick contacts. also endorses infection/ rash extending from left urbano up into left thigh. denies injury/ trauma. denies tick or insect bites. no hx of DM. noted erythema to left urbano, extending to inner thigh. warm and ttp. no crepitus. afebrile. Plan: labs, viral serology, imaging ordered Medical Decision Making Medical Decision Making [facility] Narrative: -patient was brought back to the main ED, patient is receiving IV fluids based on ideal weight of 41 kg, patient is obese. Also patient received IV vancomycin and Zosyn. -my interpretation of labs, patient's white blood cell count elevated, potassium 2.4, being repleted p.o.. ESR 73, CRP 21.5 -no suspicion for osteomyelitis -I discussed the patient with Dr. Woo, patient being admitted -patient and family member agree with plan Differential Diagnosis Differential Diagnoses: The differential diagnosis associated with the presentation includes (Cellulitis) Admission/Observation Consideration of admission/observation: Escalation of care including admission/observation considered Consult Healthcare Provider Management of the patient was discussed with: Hospitalist Lab Data [facility] Lab Attestation statement: I reviewed the patient's lab results. 09/03/23 15:41 09/03/23 15:41 Labs: Lab Results 09/03/23 09/03/23 Range/Units 15:41 17:12 WBC 13.2 H (4.8-10.8) X10*3/uL RBC 4.78 (4.20-5.50) X10*6/uL Hgb 13.6 (12.0-16.0) g/dl Hct 39.1 (37.0-47.0) % MCV 81.8 (80.0-98.0) fL MCH 28.5 (27.0-33.0) pg MCHC 34.8 (31.0-35.0) g/dl RDW 13.4 (11.0-16.0) % Plt Count 219 (160-400) X10*3/uL MPV 11.1 (9.4-12.3) fL Immature Gran % (Auto) 1.1 H (0.0-0.4) % Neut % (Auto) 73.8 H (45-73) % Lymph % (Auto) 17.7 L (20-40) % [place] % (Auto) 7.0 (2-11) % Eos % (Auto) 0.0 (0-4) % Baso % (Auto) 0.4 (0-2) % Lymph # (Auto) 2.3 (1.2-4.9) X10*3/uL [place] # (Auto) 0.9 (0.1-1.2) X10*3/uL Eos # (Auto) 0.0 (0.0-0.4) X10*3/uL Baso # (Auto) 0.1 (0.0-0.2) X10*3/uL Abs Immat Gran (auto) 0.14 H (0.00-0.03) X10*3/uL Absolute Neuts (auto) 9.7 H (2.0-8.3) x10*3/uL Absolute Nucleated RBC 0.000 (0.0-0.012) X10*3/uL Nucleated RBC % (auto) 0.0 (0.0-0.2) /100WBC ESR 73 H (0-20) MM/HR Sodium 137 (135-145) mmol/L Potassium 2.4 L* D (3.3-5.1) mmol/L Chloride 94 L (96-108) mmol/L Carbon Dioxide 31 H (22-29) mmol/L Anion Gap 14 (12-20) BUN 6 L (9-16) mg/dL Creatinine 0.77 (0.5-1.4) mg/dL Estim Creat Clear Calc 82.5 Estimated GFR > 60 Random Glucose 136 H (60-115) mg/dL Lactic Acid 1.3 (0.5-2.0) mmol/L Calcium 9.3 (8.4-10.2) mg/dL Magnesium 2.2 (1.6-2.6) mg/dL Total Bilirubin 0.7 (0.0-1.0) mg/dL AST 64 H (5-31) U/L ALT 56 H (0-31) U/L Alkaline Phosphatase 108 (39-117) U/L C-Reactive Protein 21.53 H (< or = 0.50) mg/dL Total Protein 7.1 (6.5-8.0) g/dL Albumin 3.6 (3.5-5.0) g/dL Lipase 32 (8-78) U/L Influenza Type A (PCR) NEGATIVE (Negative) Influenza Type B (PCR) NEGATIVE (Negative) RSV RNA Qual (PCR) NEGATIVE (Negative) SARS-CoV-2 RNA (RT-PCR) NEGATIVE (Negative) Radiology Impression Discussion of test interpretation with radiology: I have reviewed the radiologist's reading. Radiologist Impression: FINDINGS: The bones and soft tissues are normal. No fracture. No osseous lesions. XR/XR tibia fibula LT 2V IMPRESSION: No osseous changes to suggest osteomyelitis. Critical Care Time Critical Care Time Critical Care Time: Yes Total Critical Care Time: 60 Attestation: I have personally provided critical care time. Time includes review of lab data, radiology results, discussion with consultants, and monitoring for potential decompensation. Intervention performed as documented. Discharge Plan Discharge Clinical Impression: Cellulitis, Acute hypokalemia Patient Disposition: Admitted As Inpatient Print Language: Icelandic
[2023-09-03 15:52] LABS: MANUAL DIFF FLAG NO
[2023-09-03 15:53] LABS: Basophils Absolute Auto 0.1 X10*3/uL (0.0-0.2); Basophils Percent Auto 0.4 % (0-2); Hematocrit 39.1 % (37.0-47.0); Hemoglobin 13.6 g/dl (12.0-16.0); Imm Gran Abs Auto 0.14 X10*3/uL (0.00-0.03); Imm Gran Pct Auto 1.1 % (0.0-0.4); Lymphocytes Absolute Auto 2.3 X10*3/uL (1.2-4.9); Lymphocytes Percent Auto 17.7 % (20-40); Mean Corpuscular HGB Conc 34.8 g/dl (31.0-35.0); Mean Corpuscular Hemoglobin 28.5 pg (27.0-33.0); Mean Corpuscular Volume 81.8 fL (80.0-98.0); Mean Platelet Volume 11.1 fL (9.4-12.3); Monocytes Absolute Auto 0.9 X10*3/uL (0.1-1.2); Neutrophils Absolute Auto 9.7 x10*3/uL (2.0-8.3); Neutrophils Percent Auto 73.8 % (45-73); Platelet Count 219 X10*3/uL (160-400); Red Blood Count 4.78 X10*6/uL (4.20-5.50); Red Cell Distribution Width 13.4 % (11.0-16.0); White Blood Count 13.2 X10*3/uL (4.8-10.8)
[2023-09-03 16:12] LABS: Alanine Aminotransferase 56 U/L (0-31); Albumin Level 3.6 g/dL (3.5-5.0); Alkaline Phosphatase 108 U/L (39-117); Anion Gap 14 (12-20); Aspartate Amino Transferase 64 U/L (5-31); Bilirubin Total 0.7 mg/dL (0.0-1.0); Blood Urea Nitrogen 6 mg/dL (9-16); C Reactive Protein 21.53 mg/dL (< or = 0.50); Calcium 9.3 mg/dL (8.4-10.2); Carbon Dioxide 31 mmol/L (22-29); Chloride 94 mmol/L (96-108); Creatinine Clr Calc Pharmacy 82.5; Estimated Glomerular Filt Rate > 60; Glucose Random 136 mg/dL (60-115); Lipase 32 U/L (8-78); Magnesium 2.2 mg/dL (1.6-2.6); Potassium 2.4 mmol/L (3.3-5.1); Sodium 137 mmol/L (135-145); Total Protein 7.1 g/dL (6.5-8.0)
--- NOTE | 2023-09-03 16:17 | ECG_ITS ---
Test Reason : HYPOKALEMIA Blood Pressure : / mmHG Vent. Rate : 106 BPM Atrial Rate : 106 BPM P-R Int : 138 ms QRS Dur : 072 ms QT Int : 330 ms P-R-T Axes : 025 064 -43 degrees QTc Int : [address] & T wave abnormality, consider inferior ischemia ST & T wave abnormality, consider anterolateral ischemia Abnormal ECG When compared with ECG of 11-MAY-2018 15:52, ST now depressed in Anterolateral leads T wave inversion more evident in Inferior leads T wave inversion now evident in Anterolateral leads Referred By: Kamille Levine Electronically Signed By:KYLE FERRIS MD
[2023-09-03 16:30] LABS: Influenza A PCR NEGATIVE (Negative); Influenza B PCR NEGATIVE (Negative); Resp Syncy Virus RNA Qual PCR NEGATIVE (Negative); SARS COV2 PCR INHOUSE NEGATIVE (Negative)
[2023-09-03 16:44] LABS: Erythrocyte Sedimentation Rate 73 MM/HR (0-20)
[2023-09-03 17:19] VITALS: BP 129/76; PULSE 95; RESP 16; O2SAT 96
[2023-09-03 17:31] LABS: Lactic Acid 1.3 mmol/L (0.5-2.0)
[2023-09-03] MEDS: 0.9 % Sodium Chloride 1,000 ML 999 ML IVCONT ×2 (17:42→18:23)
[2023-09-03] MEDS: Piperacillin Sodium/Tazobactam 3.375 GM in 0.9 % Sodium Chloride 50 ML IV (17:42)
--- NOTE | 2023-09-03 17:45 | P.HPHOSP_ITS ---
<Statement entered by Radha Woo MD - 09/05/23 15:34> the patient was seen and evaluated with YESICA Ruiz. I agree with his note, assessment and plan with the following. In summary, a 48 lady with LLE cellulitis and abnormal EKG Sepsis 2/2 Left lower extremity cellulitis IV vancomycin, started 09/03/2023 Follow cultures Abnormal EKG with Hypokalemia Potassium 2.4 at time of presentation, to replace EKG changed likely related to low K keep on Tele and repeat EKG after correcting K Rest of evaluations by PA note. History of Present Illness Date of Service: 09/03/23 Attending physician on admission: Radha Woo Chief Complaint: Left foot and leg redness and swelling Pt is a 48-year-old female with a PMH significant for HTN, HLD, prediabetes, asthma fibromyalgia,?rheumatoid arthritis, GERD, and BONNIE on CPAP who presents to the ED with fever, chills, nausea, and left leg swelling and redness x6 days. Patient reports that on Tuesday felt ?sick? with fever, chills, nausea, vomiting, and diarrhea. On Tuesday she noticed her right lower leg began swelling and turning red. Symptoms continue to worsen throughout the week until she sought further evaluation at the ED today. Has been unable to tolerate eating or drinking much during this time. Denies trauma to the area. No history of IVDU. Denies abdominal pain. Also has been experiencing intermittent sharp and stabbing chest pain that last a couple seconds at a time. Denies palpitations or feeling like her heart is racing. No shortness a breath or difficulty breathing. No cough. In the ED pt was febrile up to 102.2, tachycardic up to 107, and mildly hypertensive at 148/79. Labs were significant for leukocytosis of 13.2, potassium 2.4, chloride 94, AST 64, ALT 56, ESR 73, and CRP 21.53. Lactic acid WNL at 1.3. Tested negative for flu, RSV, COVID. X-ray of left tibia and fibula show no osseous changes to suggest osteomyelitis. EKG demonstrated sinus tachycardia 106 with diffuse T-wave inversions in anteriolateral and and inferior leads. Pt was treated with IVF, Zosyn, and potassium chloride 80 mEq p.o.. Pt will be admitted to the hospital for treatment and further evaluation of left lower extremity cellulitis with sepsis. Review of Systems 2 Review of Systems: Left leg redness, swelling, pain Fever, chills Nausea, vomiting Diarrhea Intermittent sharp, stabbing chest pain Denies abdominal pain No shortness of breath or difficulty breathing [facility] Medical History Osteoporosis Thoracic degenerative disc disease Back pain Asthma Fibromyalgia Sleep apnea group home methotrexate user Seropositive rheumatoid arthritis Irritable bowel Arthritis Diarrhea Acid reflux Family History Father No problems noted. Mother History of high blood pressure Surgical History History of esophagogastroduodenoscopy (EGD) History of laparoscopic cholecystectomy Hx of tubal ligation History of partial hysterectomy Hx of endoscopy History of colonoscopy Social History Household Members: None Alcohol intake: current Alcohol intake frequency: holidays/special occasions only Alcohol type: beer and wine Patient Tobacco Use Status: Former Tobacco user Tobacco use type: Cigarette Smoked in Last 30 Days: No e-Cigarette/Vaping Use: Never Used Use of substances other than those prescribed or required for medical reasons: Yes Substance Use Type: Marijuana Advance Directives: No Advance Directives Information Provided: No Do you have a plan to hurt others: No Plan Current occupational status: disabled Meds Allergies Allergy/AdvReac Type Severity Reaction Status Date / Time penicillin G [PENICILLIN G] Allergy Severe DIZZINESS Verified 09/03/23 14:59 tramadol Allergy Severe Vomiting Verified 09/03/23 14:59 and sweats Active Medications: Current Medications Sodium Chloride (Ns) 1,000 mls @ 999 mls/hr IVCONT .Q1H1M ONE Stop: 09/03/23 18:02 Last Admin: 09/03/23 17:42 Dose: 999 mls/hr Sodium Chloride (Ns) 1,000 mls @ 999 mls/hr IVCONT .Q1H1M ONE Stop: 09/03/23 18:03 Vancomycin HCl (Vancomycin/Ns) 2,000 mg in 500 mls @ 250 mls/hr IV ONCE ONE Stop: 09/03/23 19:03 Home Medications ?Medication ?Instructions ?Recorded ?Confirmed ?Last Taken ?Type montelukast 10 mg tablet 10 mg PO BEDTIME 05/22/20 09/03/23 1 Week Ago History (Singulair) ~08/27/23 clonidine HCl 0.1 mg tablet 0.1 mg PO BID 11/19/20 09/03/23 1 Week Ago History ~08/27/23 aspirin 81 mg tablet,delayed 81 mg PO DAILY 05/20/21 09/03/23 1 Week Ago History release ~08/27/23 atorvastatin 40 mg tablet 40 mg PO BEDTIME 05/20/21 09/03/23 1 Week Ago History ~08/27/23 budesonide-formoterol HFA 160 2 puff inhalation BID 03/09/22 09/03/23 1 Week Ago History mcg-4.5 mcg/actuation aerosol ~08/27/23 inhaler (Symbicort) cyclobenzaprine 10 mg tablet 10 mg PO BEDTIME PRN Muscle Spasm 03/31/23 09/03/23 1 Week Ago History ~08/27/23 acetaminophen 325 mg tablet 650 mg PO Q6H PRN Pain 09/03/23 09/03/23 Unknown History (Tylenol) aripiprazole 20 mg tablet 20 mg PO DAILY 09/03/23 09/03/23 1 Week Ago History ~08/27/23 ascorbic acid (vitamin C) 500 mg 500 mg PO DAILY 09/03/23 09/03/23 1 Week Ago History tablet (Vitamin C) ~08/27/23 buspirone 7.5 mg tablet 7.5 mg PO BID 09/03/23 Unknown History duloxetine 20 mg capsule,delayed 40 mg PO DAILY 09/03/23 Unknown History release leflunomide 20 mg tablet 20 mg PO DAILY 09/03/23 09/03/23 1 Week Ago History ~08/27/23 losartan 25 mg tablet 25 mg PO DAILY 09/03/23 09/03/23 1 Week Ago History ~08/27/23 omeprazole 20 mg capsule,delayed 40 mg PO DAILY@0630 09/03/23 09/03/23 1 Week Ago History release ~08/27/23 Physical Exam 2 Vital Signs and Narrative: Vital Signs: Last Vital Signs Temp 98.6 F 09/03/23 14:59 Pulse 95 09/03/23 17:19 Resp 16 09/03/23 17:19 BP 129/76 09/03/23 17:19 Pulse Ox 96 09/03/23 17:19 O2 Del Method Room Air 09/03/23 17:19 BMI result Body Mass Index 36.3 General: AOx3, no acute distress Resp: CTA bilaterally CVS: S1, S2, RRR GI: +BS, NT, no distention Skin: Warm, dry Neuro: Cranial nerves II-XII grossly intact bilaterally. Motor grossly intact bilaterally Extremities: Left lower extremity with erythema and warmth extending along superior medial thigh up to groin. As pictured below Psych: Appropriate affect Results Labs 09/03/23 15:41 09/03/23 15:41 Labs: Laboratory Results - last 24 hr 09/03/23 09/03/23 15:41 17:12 MCV 81.8 MCH 28.5 MCHC 34.8 RDW 13.4 Plt Count 219 MPV 11.1 Immature Gran % (Auto) 1.1 H Neut % (Auto) 73.8 H Lymph % (Auto) 17.7 L [place] % (Auto) 7.0 Eos % (Auto) 0.0 Baso % (Auto) 0.4 Lymph # (Auto) 2.3 [place] # (Auto) 0.9 Eos # (Auto) 0.0 Baso # (Auto) 0.1 Abs Immat Gran (auto) 0.14 H Absolute Neuts (auto) 9.7 H Absolute Nucleated RBC 0.000 Nucleated RBC % (auto) 0.0 ESR 73 H Anion Gap 14 Estim Creat Clear Calc 82.5 Estimated GFR > 60 Random Glucose 136 H Lactic Acid 1.3 Calcium 9.3 Magnesium 2.2 Total Bilirubin 0.7 AST 64 H ALT 56 H Alkaline Phosphatase 108 C-Reactive Protein 21.53 H Total Protein 7.1 Albumin 3.6 Lipase 32 Influenza Type A (PCR) NEGATIVE Influenza Type B (PCR) NEGATIVE RSV RNA Qual (PCR) NEGATIVE SARS-CoV-2 RNA (RT-PCR) NEGATIVE Imaging Radiologist's Impressions: Impressions Tibia/Fibula X-Ray 09/03/23 15:10 IMPRESSION: No osseous changes to suggest osteomyelitis. Assessment and Plan (1) Left leg cellulitis: Status: Acute Plan Pt is a 48-year-old female with a PMH significant for HTN, HLD, prediabetes, asthma fibromyalgia,?rheumatoid arthritis, GERD, and BONNIE on CPAP who presents to the ED with fever, chills, nausea, and left leg swelling and redness x6 days. Pt will be admitted to the hospital for treatment and further evaluation of left lower extremity cellulitis with sepsis. Left lower extremity cellulitis with sepsis Patient with redness, swelling, pain in left leg x6 days, as well as nausea, vomiting, fever, chills, and diarrhea Meets sepsis criteria: Fever, tachycardia, leukocytosis; lactic acid WNL Patient received IVF and started on broad-spectrum antibiotics in the ED Will treat with vancomycin, started 09/03/2023 Follow cultures Hypokalemia Potassium 2.4 at time of presentation Likely in the setting of GI losses from vomiting and diarrhea in the setting of reduced p.o. intake Patient received 80 mEq p.o. in the ED Attempted to drink an additional 40 mEq, but vomited it up Will give additional 20 mEq IV Follow potassium Abnormal EKG EKG showing diffuse T-wave inversions in anteriolateral and inferior leads Patient also reporting brief, intermittent sharp stabbing chest pain Likely secondary to hypokalemia Treat as above Will monitor on telemetry Will check troponin Repeat EKG in the morning HTN Continue losartan HLD Continue statin Rheumatoid arthritis Continue leflunomide Asthma Not in acute exacerbation Continue home inhalers Mood disorder Continue mood stabilizers Full Code Attending:?Dr. Woo DVT Prophylaxis: Lovenox Pt will require a hospitalization of at least two nights for treatment of?left lower extremity cellulitis with sepsis. Patient will require administration of IV antibiotics for 2 days while awaiting blood culture results. Quality Stroke Does the patient have a stroke diagnosis?: No VTE Prior VTE?: No VTE Risk Level:: Medical - moderate - high VTE Device Contraindication: Treatment Not Indicated VTE Drug Contraindication: N/A - Med Ordered
[2023-09-03 18:00] VITALS: BP 137/76; PULSE 98; RESP 15; TEMP 39; O2SAT 97
[2023-09-03] MEDS: Potassium Chloride Packet 20 MEQ PACKET 80 MEQ PO (18:20)
[2023-09-03] MEDS: vancomycin/NS 2,000 MG/500 ML PLAST..BAG 250 MG IV (18:42)
[2023-09-03 18:43] LABS: Troponin-I High Sensitivity 3.5 ng/L (<3.5-17.0)
[2023-09-03] MEDS: Potassium Chloride Packet 20 MEQ PACKET 40 MEQ PO (18:54)
[2023-09-03] MEDS: Acetaminophen 325 MG TABLET 650 MG PO (19:53)
[2023-09-03 20:08] VITALS: BP 131/74; PULSE 93; RESP 15; TEMP 38.1; O2SAT 97
[2023-09-03 20:21] VITALS: BP 125/58; PULSE 94; RESP 18; TEMP 38.1; O2SAT 94
[2023-09-03] MEDS: Potassium Chloride/H20 10 MEQ/100 ML PIGGYBACK 100 MEQ IV ×2 (20:41→22:10)
[2023-09-03] MEDS: Enoxaparin Sodium 40 MG/0.4 ML SYRINGE SUBCUT (20:44)
[2023-09-03 23:42] VITALS: RESP 18
[2023-09-04] VITALS (9 sets, daily range): BP systolic 112–139; BP diastolic 62–80; PULSE 71–101; RESP 16–20; TEMP 36–36.6; O2SAT 94–98
[2023-09-04] MEDS: 0.9 % Sodium Chloride Flush 3 ML SYRINGE IVFLUSH ×3 (00:14→16:52)
[2023-09-04] MEDS: Acetaminophen 325 MG TABLET 650 MG PO ×3 (03:50→20:14)
[2023-09-04] MEDS: vancomycin HCL 1,000 MG in 0.9 % Sodium Chloride 250 ML 270 MG IV (05:30)
[2023-09-04] MEDS: Omeprazole 40 MG CAPSULE.DR PO (05:31)
[2023-09-04 06:58] LABS: Hematocrit 33.2 % (37.0-47.0); Hemoglobin 11.3 g/dl (12.0-16.0); Mean Corpuscular Hemoglobin 28.7 pg (27.0-33.0); Mean Corpuscular Volume 84.3 fL (80.0-98.0); Mean Platelet Volume 11.5 fL (9.4-12.3); Platelet Count 208 X10*3/uL (160-400); Red Blood Count 3.94 X10*6/uL (4.20-5.50); Red Cell Distribution Width 13.9 % (11.0-16.0); White Blood Count 11.8 X10*3/uL (4.8-10.8)
[2023-09-04 07:09] LABS: Anion Gap 12 (12-20); Blood Urea Nitrogen 11 mg/dL (9-16); Calcium 8.4 mg/dL (8.4-10.2); Carbon Dioxide 23 mmol/L (22-29); Chloride 105 mmol/L (96-108); Creatinine Clr Calc Pharmacy 36.3; Estimated Glomerular Filt Rate 31; Glucose Random 157 mg/dL (60-115); Potassium 2.6 mmol/L (3.3-5.1); Sodium 137 mmol/L (135-145)
[2023-09-04] MEDS: ARIPiprazole 20 MG TABLET PO (08:13)
[2023-09-04] MEDS: Losartan Potassium 25 MG TABLET PO (08:13)
[2023-09-04] MEDS: Aspirin Enteric Coated 81 MG TABLET.DR PO (08:13)
[2023-09-04] MEDS: Ascorbic Acid 500 MG TABLET PO (08:13)
[2023-09-04] MEDS: cloNIDine HCL 0.1 MG TABLET PO ×2 (08:13→20:14)
--- NOTE | 2023-09-04 08:47 | PHA.MEDREC ---
Pharmacy Consult ? Medication Reconciliation Pharmacy has completed the medication reconciliation. Utilized parts interpreter services. Pt states no longer taking gabapentin. Called pt's daughter which named all meds in medbox, patient no longer taking buspirone 7.5 mg BID.
[2023-09-04] MEDS: DULoxetine HCl 20 MG CAPSULE.DR 40 MG PO (09:26)
[2023-09-04] MEDS: Potassium Chloride ER 20 MEQ TAB.ER.PRT 40 MEQ PO ×2 (09:27→16:52)
--- NOTE | 2023-09-04 10:21 | MHC.CM.PN ---
Addendum entered by Elmira Brennan 09/04/23 15:29: HCP completed with pt, now on file. Original Note: This CM met with pt with the assistance of a diplomatic interpreter. Pt self-care, lives at home alone. Pt has a CP[facility] machine through [facility]. Pts daughter will transport her home. Pt would like to complete a HCP today, she is getting her daughters information in order to fill out form and then we will complete the HCP. PCP: Dr. Kay Pedersen
--- NOTE | 2023-09-04 10:47 | P.PNIM_ITS ---
Subjective Subjective Date of Service: 09/05/23 Interval History: f/u on celulitis of the right leg and tigh interval history: redness is much better, potassium remains low Physical Exam 2 Vital Signs: Vital Signs: Last Vital Signs Temp 97.4 F 09/04/23 08:00 Pulse 81 09/04/23 08:00 Resp 18 09/04/23 08:00 BP 139/80 09/04/23 08:13 Pulse Ox 94 09/04/23 08:00 O2 Del Method Room Air 09/04/23 08:00 BMI result Body Mass Index 36.3 Objective Data Active Medications Acetaminophen (Acetaminophen 325 Mg Tablet) 650 mg PO Q6H PRN PRN Reason: Pain, Mild (Pain Scale 1-3), fever or headache Last Admin: 09/04/23 03:50 Dose: 650 mg Documented By: SIMEON Aripiprazole (Aripiprazole 20 Mg Tablet) 20 mg PO DAILY [facility] Last Admin: 09/04/23 08:13 Dose: 20 mg Documented By: SRI Ascorbic Acid (Ascorbic Acid 500 Mg Tablet) 500 mg PO DAILY [facility] Last Admin: 09/04/23 08:13 Dose: 500 mg Documented By: SRI Aspirin (Aspirin Enteric Coated 81 Mg Tablet.) 81 mg PO DAILY [facility] Last Admin: 09/04/23 08:13 Dose: 81 mg Documented By: SRI Atorvastatin Calcium (Atorvastatin Calcium 40 Mg Tablet) 40 mg PO BEDTIME [facility] Benzonatate (Benzonatate 100 Mg Capsule) 100 mg PO TID PRN PRN Reason: Cough Calcium Carbonate (Calcium Carbonate 750 Mg Tab.Chew) 750 mg PO Q4H PRN PRN Reason: Heartburn Clonidine HCl (Clonidine Hcl 0.1 Mg Tablet) 0.1 mg PO BID [facility]; Protocol Last Admin: 09/04/23 08:13 Dose: 0.1 mg Documented By: SRI Cyclobenzaprine HCl (Cyclobenzaprine Hcl 10 Mg Tablet) 10 mg PO BEDTIME PRN PRN Reason: Muscle Spasm Duloxetine HCl (Duloxetine Hcl 20 Mg Capsule.) 40 mg PO DAILY [facility] Last Admin: 09/04/23 09:26 Dose: 40 mg Documented By: SRI Enoxaparin Sodium (Enoxaparin Sodium 40 Mg/0.4 Ml Syringe) 40 mg SUBCUT Q24H [facility] Last Admin: 09/03/23 20:44 Dose: 40 mg Documented By: GM Fluticasone/Vilanterol (Fluticasone/Vilanterol 200/25 Blst.W.Dev) 1 puff INHALE DAILY [facility] Vancomycin HCl 1,000 mg/ (Sodium Chloride) 270 mls @ 270 mls/hr IV Q12H [facility] Last Infusion: 09/04/23 08:07 Dose: Infused Documented By: RSI Losartan Potassium (Losartan Potassium 25 Mg Tablet) 25 mg PO DAILY [facility]; Protocol Last Admin: 09/04/23 08:13 Dose: 25 mg Documented By: SRI Melatonin (Melatonin 3 Mg Tablet) 6 mg PO BEDTIME PRN PRN Reason: Insomnia Montelukast Sodium (Montelukast Sodium 10 Mg Tablet) 10 mg PO BEDTIME [facility] Omeprazole (Omeprazole 40 Mg Capsule.Dr) 40 mg PO DAILY@0630 [facility] Last Admin: 09/04/23 05:31 Dose: 40 mg Documented By: SIMEON Ondansetron HCl (Ondansetron Hcl 4 Mg/2 Ml Vial) 4 mg IVPUSH Q8H PRN PRN Reason: Nausea and Vomiting Pharmacy Consult (Consult Rx Vancomycin Dosing) 1 each MISCELLANE DAILY PRN PRN Reason: Consult order Polyethylene Glycol (Polyethylene Glycol 3350 17 Gm Powd.Pack) 17 gm PO DAILY PRN PRN Reason: Constipation Potassium Chloride (Potassium Chloride Er 20 Meq Tab.Er.Prt) 40 meq PO Q6H [facility] Stop: 09/04/23 14:31 Last Admin: 09/04/23 09:27 Dose: 40 meq Documented By: SRI Sodium Chloride (0.9 % Sodium Chloride Flush 3 Ml Syringe) 3 ml IVFLUSH QSHIFT [facility] Last Admin: 09/04/23 08:13 Dose: 3 ml Documented By: SRI Labs 09/05/23 06:12 09/05/23 06:12 Labs: Laboratory Results - last 24 hr 09/03/23 09/03/23 09/04/23 15:41 17:12 06:21 MCV 81.8 84.3 MCH 28.5 28.7 MCHC 34.8 34.0 RDW 13.4 13.9 Plt Count 219 208 MPV 11.1 11.5 Immature Gran % (Auto) 1.1 H Neut % (Auto) 73.8 H Lymph % (Auto) 17.7 L [place] % (Auto) 7.0 Eos % (Auto) 0.0 Baso % (Auto) 0.4 Lymph # (Auto) 2.3 [place] # (Auto) 0.9 Eos # (Auto) 0.0 Baso # (Auto) 0.1 Abs Immat Gran (auto) 0.14 H Absolute Neuts (auto) 9.7 H Absolute Nucleated RBC 0.000 0.000 Nucleated RBC % (auto) 0.0 0.0 ESR 73 H Anion Gap 14 12 Estim Creat Clear Calc 82.5 36.3 Estimated GFR > 60 31 Random Glucose 136 H 157 H Lactic Acid 1.3 Calcium 9.3 8.4 D Magnesium 2.2 Total Bilirubin 0.7 AST 64 H ALT 56 H Alkaline Phosphatase 108 Troponin I High Sens 3.5 C-Reactive Protein 21.53 H Total Protein 7.1 Albumin 3.6 Lipase 32 Influenza Type A (PCR) NEGATIVE Influenza Type B (PCR) NEGATIVE RSV RNA Qual (PCR) NEGATIVE SARS-CoV-2 RNA (RT-PCR) NEGATIVE Assessment and Plan (1) Left leg cellulitis: Status: Acute (2) Acute hypokalemia: Status: Acute (3) Cellulitis: Status: Acute Plan Pt is a 48-year-old female with a PMH significant for HTN, HLD, prediabetes, asthma fibromyalgia,?rheumatoid arthritis, GERD, and BONNIE on CPAP who presents to the ED with fever, chills, nausea, and left leg swelling and redness x6 days. Pt will be admitted to the hospital for treatment and further evaluation of left lower extremity cellulitis with sepsis. Left lower extremity cellulitis with sepsis--sepsis resolved, redness much improved, wbc going down continue Vancomycin since seems to be working, Hypokalemia--K is now 2.6, give additonal PO, Mag normal Abnormal EKG EKG showing diffuse T-wave inversions in anteriolateral and inferior leads Patient also reporting brief, intermittent sharp stabbing chest pain Likely secondary to hypokalemia Treat as above Will monitor on telemetry Will check troponin Repeat EKG in the morning HTN Continue losartan, already received today may have to hold tomorrow if Creatine rising ELISA--monitor while on Vanco HLD Continue statin Rheumatoid arthritis Continue leflunomide Asthma Not in acute exacerbation Continue home inhalers Mood disorder Continue mood stabilizers Full Code DVT Prophylaxis: Lovenox need for inaptient: IV Abx for cellultis involving more than 50% or left lower extremity Quality Stroke Does the patient have a stroke diagnosis?: No VTE Prior VTE?: No VTE Risk Level:: Medical - moderate - high VTE Device Contraindication: Treatment Not Indicated VTE Drug Contraindication: N/A - Med Ordered
[2023-09-04] MEDS: ondansetron HCL 4 MG/2 ML VIAL IVPUSH ×2 (11:15→20:13)
[2023-09-04] MEDS: Fluticasone/Vilanterol 200/25 BLST.W.DEV 1 PUFF INHALE (11:52)
[2023-09-04] MEDS: Potassium Chloride/H20 10 MEQ/100 ML PIGGYBACK 100 MEQ IV ×4 (12:20→19:18)
[2023-09-04 18:17] LABS: Vancomycin Random 26.6 mcg/mL (15-20)
--- NOTE | 2023-09-04 18:21 | PM.EVENT ---
Event Note Date of Service: 09/04/23 Event Note: Patient had critical vancomycin level of 26.6, and increase of creatinine from 0.77 yesterday to 1.75 today. Will discontinue vancomycin and losartan. Given patient's penicillin allergy will switch antibiotics to clindamycin. Will give 1L IVF and get Nephrology consult for patient's worsening kidney function. Time Spent With Patient Time: Total time managing care of this patient today ____ minutes.
--- NOTE | 2023-09-04 18:37 | PM.EVENT ---
Event Note Date of Service: 09/04/23 Event Note: 48 yr old woman with ELISA and hypokalemia ELISA most likely due to Vanco induced tubular injury DC Vanco and all nephrotoxins Keep I > O Watch UO Replace K Full consult to follow Time Spent With Patient Time: Total time managing care of this patient today ____ minutes.
[2023-09-04] MEDS: Clindamycin Phosphate/D5W 600 MG/50 ML PIGGYBACK 100 MG IV (19:18)
[2023-09-04] MEDS: 0.9 % Sodium Chloride 1,000 ML 999 ML IV (19:18)
[2023-09-04] MEDS: Atorvastatin Calcium 40 MG TABLET PO (20:14)
[2023-09-04] MEDS: Montelukast Sodium 10 MG TABLET PO (20:14)
[2023-09-04] MEDS: Enoxaparin Sodium 40 MG/0.4 ML SYRINGE SUBCUT (20:14)
[2023-09-04 22:46] LABS: Anion Gap 15 (12-20); Carbon Dioxide 16 mmol/L (22-29); Chloride 114 mmol/L (96-108); Potassium 4.9 mmol/L (3.3-5.1); Sodium 140 mmol/L (135-145)
[2023-09-05] VITALS (8 sets, daily range): BP systolic 98–123; BP diastolic 59–73; PULSE 62–79; RESP 17–20; TEMP 36.1–37; O2SAT 96–99
--- NOTE | 2023-09-05 | ECG_ITS ---
Test Reason : abnormal ecg Blood Pressure : / mmHG Vent. Rate : 073 BPM Atrial Rate : 073 BPM P-R Int : 172 ms QRS Dur : 076 ms QT Int : 400 ms P-R-T Axes : 050 060 026 degrees QTc Int : 440 ms Sinus rhythm with occasional Premature ventricular complexes Low voltage QRS Borderline ECG When compared with ECG of 03-SEP-2023 16:18, Premature ventricular complexes are now Present ST no longer depressed in Anterolateral leads T wave inversion less evident in Inferior leads T wave inversion no longer evident in Anterolateral leads Referred By: Allen Vasquez Electronically Signed By:MUMTAZ ULRICH
[2023-09-05] MEDS: 0.9 % Sodium Chloride Flush 3 ML SYRINGE IVFLUSH ×3 (01:14→15:01)
[2023-09-05] MEDS: ondansetron HCL 4 MG/2 ML VIAL IVPUSH ×2 (01:58→14:56)
[2023-09-05] MEDS: Clindamycin Phosphate/D5W 600 MG/50 ML PIGGYBACK 100 MG IV ×3 (02:02→18:34)
[2023-09-05] MEDS: Omeprazole 40 MG CAPSULE.DR PO (05:44)
[2023-09-05 06:50] LABS: Anion Gap 15 (12-20); Blood Urea Nitrogen 21 mg/dL (9-16); Calcium 8.5 mg/dL (8.4-10.2); Carbon Dioxide 20 mmol/L (22-29); Chloride 109 mmol/L (96-108); Creatinine Clr Calc Pharmacy 15.6; Estimated Glomerular Filt Rate 12; Glucose Random 113 mg/dL (60-115); Potassium 3.6 mmol/L (3.3-5.1); Sodium 140 mmol/L (135-145)
--- NOTE | 2023-09-05 07:24 | PC.NURSE ---
Assumed care of patient at 23:15. Polish speaking, candle extrusion machine operator was used at bedside. A&ox4. VSS. Pt c/o nausea without vomiting x1, zofran given with +effect no further nausea reported. Breathing is even and unlabored without distress. Please see shift assessment for full details. This morning at 06:49 a Tigertext was received from the lab by this financial underwriter with covering Dr. Inocencio Gongora cc'd stating creatinine critical 4.06 from routine morning lab work. MD responded, advised financial underwriter at 07:03 the patient will need a bolus and maintenance fluids this morning due to concern for vancomycin nephrotoxicity (med was reportedly recently d/c'd 2/2 high trough). Alda oncoming RN assuming care was verbally made aware of these critical values and MD communications made to financial underwriter during handoff report at 07:00. foundation drill operator helper LeAnne was also verbally notified.
[2023-09-05] MEDS: Fluticasone/Vilanterol 200/25 BLST.W.DEV 1 PUFF INHALE (07:33)
[2023-09-05 07:54] LABS: MANUAL DIFF FLAG NO
[2023-09-05 07:55] LABS: Glucose, Whole Blood 112 mg/dL (60-115)
[2023-09-05 08:10] LABS: Basophils Absolute Auto 0.1 X10*3/uL (0.0-0.2); Basophils Percent Auto 0.4 % (0-2); Eosinophils Absolute Auto 0.1 X10*3/uL (0.0-0.4); Eosinophils Percent Auto 0.4 % (0-4); Hematocrit 33.4 % (37.0-47.0); Hemoglobin 10.6 g/dl (12.0-16.0); Imm Gran Pct Auto 2.3 % (0.0-0.4); Lymphocytes Absolute Auto 2.1 X10*3/uL (1.2-4.9); Lymphocytes Percent Auto 16.1 % (20-40); Mean Corpuscular HGB Conc 31.7 g/dl (31.0-35.0); Mean Corpuscular Hemoglobin 28.2 pg (27.0-33.0); Mean Corpuscular Volume 88.8 fL (80.0-98.0); Mean Platelet Volume 11.8 fL (9.4-12.3); Monocytes Absolute Auto 0.9 X10*3/uL (0.1-1.2); Monocytes Percent Auto 6.9 % (2-11); Neutrophils Absolute Auto 9.5 x10*3/uL (2.0-8.3); Neutrophils Percent Auto 73.9 % (45-73); Platelet Count 252 X10*3/uL (160-400); Red Blood Count 3.76 X10*6/uL (4.20-5.50); Red Cell Distribution Width 14.8 % (11.0-16.0); White Blood Count 12.8 X10*3/uL (4.8-10.8)
[2023-09-05] MEDS: 0.9 % Sodium Chloride 1,000 ML 999 ML IV (09:07)
[2023-09-05] MEDS: 0.9 % Sodium Chloride 1,000 ML 100 ML IVCONT ×2 (09:07→18:34)
[2023-09-05] MEDS: cloNIDine HCL 0.1 MG TABLET PO ×2 (09:08→20:41)
[2023-09-05] MEDS: ARIPiprazole 20 MG TABLET PO (09:08)
[2023-09-05] MEDS: Aspirin Enteric Coated 81 MG TABLET.DR PO (09:08)
[2023-09-05] MEDS: Ascorbic Acid 500 MG TABLET PO (09:08)
[2023-09-05] MEDS: DULoxetine HCl 20 MG CAPSULE.DR 40 MG PO (09:12)
--- NOTE | 2023-09-05 10:50 | MHC.CM.PN ---
Per MD rounds no discharge today. The patient has developed ELISA. She will receive IV fluids today. DP home self care. Her dtr will provide transportation.
[2023-09-05 11:59] LABS: Glucose, Whole Blood 139 mg/dL (60-115)
--- NOTE | 2023-09-05 13:17 | P.CONNP_ITS ---
History of Present Illness Reason for Consult Consult date: 09/05/23 Reason for consult: ELISA Chief Complaint Chief complaint: Left leg cellulitis with sepsis, hypokalemia History of Present Illness Narrative: 48-year-old female with a PMH significant for HTN, HLD, prediabetes, asthma fibromyalgia,?rheumatoid arthritis, GERD, and BONNIE on CPAP who presents to the ED with fever, chills, nausea, and left leg swelling and redness x6 days. Patient reports that on Tuesday felt ?sick? with fever, chills, nausea, vomiting, and diarrhea. On Tuesday she noticed her right lower leg began swelling and turning red. Symptoms continue to worsen throughout the week until she sought further evaluation at the ED today. Has been unable to tolerate eating or drinking much during this time. Denies trauma to the area. No history of IVDU. Denies abdominal pain. Also has been experiencing intermittent sharp and stabbing chest pain that last a couple seconds at a time She received high dose of vancomycin vanco levels are elevated. Serum creatinine is significantly increased. 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 Mother History of high blood pressure Surgical History Surgical History History of esophagogastroduodenoscopy (EGD) History of laparoscopic cholecystectomy Hx of tubal ligation History of partial hysterectomy Hx of endoscopy History of colonoscopy Social History Social History Household Members: None Housing: Apartment Do you presently have visiting nurse or other home services: No Alcohol intake: current Alcohol intake frequency: holidays/special occasions only Alcohol type: beer and wine Patient Tobacco Use Status: Former Tobacco user Tobacco use type: Cigarette Smoked in Last 30 Days: No e-Cigarette/Vaping Use: Never Used Use of substances other than those prescribed or required for medical reasons: No Substance Use Type: Marijuana Currently Displaying Signs/Symptoms of Drug Intoxication Withdrawal: No Have you been hit, kicked, punched, or otherwise hurt by someone within the past year? If so, by whom?: No Is there a partner from a previous relationship who is making you feel unsafe now?: No Are you made to feel afraid or neglected: No Advance Directives: No Advance Directives Information Provided: No Do you have a plan to hurt others: No Plan Patient : No service: No Current occupational status: disabled Meds Allergies Allergy/AdvReac Type Severity Reaction Status Date / Time penicillin G [PENICILLIN G] Allergy Severe DIZZINESS Verified 09/03/23 14:59 tramadol Allergy Severe Vomiting Verified 09/03/23 14:59 and sweats Active Medications: Current Medications Acetaminophen (Acetaminophen 325 Mg Tablet) 650 mg PO Q6H PRN PRN Reason: Pain, Mild (Pain Scale 1-3), fever or headache Last Admin: 09/04/23 20:14 Dose: 650 mg Aripiprazole (Aripiprazole 20 Mg Tablet) 20 mg PO DAILY [facility] Last Admin: 09/05/23 09:08 Dose: 20 mg Ascorbic Acid (Ascorbic Acid 500 Mg Tablet) 500 mg PO DAILY [facility] Last Admin: 09/05/23 09:08 Dose: 500 mg Aspirin (Aspirin Enteric Coated 81 Mg Tablet.) 81 mg PO DAILY [facility] Last Admin: 09/05/23 09:08 Dose: 81 mg Atorvastatin Calcium (Atorvastatin Calcium 40 Mg Tablet) 40 mg PO BEDTIME [facility] Last Admin: 09/04/23 20:14 Dose: 40 mg Benzonatate (Benzonatate 100 Mg Capsule) 100 mg PO TID PRN PRN Reason: Cough Calcium Carbonate (Calcium Carbonate 750 Mg Tab.Chew) 750 mg PO Q4H PRN PRN Reason: Heartburn Clonidine HCl (Clonidine Hcl 0.1 Mg Tablet) 0.1 mg PO BID [facility]; Protocol Last Admin: 09/05/23 09:08 Dose: 0.1 mg Cyclobenzaprine HCl (Cyclobenzaprine Hcl 10 Mg Tablet) 10 mg PO BEDTIME PRN PRN Reason: Muscle Spasm Duloxetine HCl (Duloxetine Hcl 20 Mg Capsule.) 40 mg PO DAILY [facility] Last Admin: 09/05/23 09:12 Dose: 40 mg Enoxaparin Sodium (Enoxaparin Sodium 40 Mg/0.4 Ml Syringe) 40 mg SUBCUT Q24H [facility] Last Admin: 09/04/23 20:14 Dose: 40 mg Fluticasone/Vilanterol (Fluticasone/Vilanterol 200/25 Blst.W.Dev) 1 puff INHALE DAILY [facility] Last Admin: 09/05/23 07:33 Dose: 1 puff Clindamycin Phosphate (Cleocin) 600 mg in 50 mls @ 100 mls/hr IV Q8H [facility] Last Infusion: 09/05/23 11:26 Dose: Infused Sodium Chloride (Ns) 1,000 mls @ 100 mls/hr IVCONT .Q10H [facility] Last Admin: 09/05/23 09:07 Dose: 100 mls/hr Melatonin (Melatonin 3 Mg Tablet) 6 mg PO BEDTIME PRN PRN Reason: Insomnia Montelukast Sodium (Montelukast Sodium 10 Mg Tablet) 10 mg PO BEDTIME [facility] Last Admin: 09/04/23 20:14 Dose: 10 mg Omeprazole (Omeprazole 40 Mg Capsule.) 40 mg PO DAILY@0630 [facility] Last Admin: 09/05/23 05:44 Dose: 40 mg Ondansetron HCl (Ondansetron Hcl 4 Mg/2 Ml Vial) 4 mg IVPUSH Q6H PRN PRN Reason: Nausea and Vomiting Last Admin: 09/05/23 01:58 Dose: 4 mg Polyethylene Glycol (Polyethylene Glycol 3350 17 Gm Powd.Pack) 17 gm PO DAILY PRN PRN Reason: Constipation Sodium Chloride (0.9 % Sodium Chloride Flush 3 Ml Syringe) 3 ml IVFLUSH QSHIFT [facility] Last Admin: 09/05/23 09:07 Dose: 3 ml Home Medications ?Medication ?Instructions ?Recorded ?Confirmed ?Last Taken ?Type montelukast 10 mg tablet 10 mg PO BEDTIME 05/22/20 09/03/23 1 Week Ago History ([facility]rel) ~08/27/23 clonidine HCl 0.1 mg tablet 0.1 mg PO BID 11/19/20 09/04/23 1 Week Ago History ~08/27/23 aspirin 81 mg tablet,delayed 81 mg PO DAILY 05/20/21 09/03/23 1 Week Ago History release ~08/27/23 atorvastatin 40 mg tablet 40 mg PO BEDTIME 05/20/21 09/03/23 1 Week Ago History ~08/27/23 budesonide-formoterol HFA 160 2 puff inhalation BID 03/09/22 09/03/23 1 Week Ago History mcg-4.5 mcg/actuation aerosol ~08/27/23 inhaler (Symbicort) cyclobenzaprine 10 mg tablet 10 mg PO BEDTIME PRN Muscle Spasm 03/31/23 09/03/23 1 Week Ago History ~08/27/23 acetaminophen 325 mg tablet 650 mg PO Q6H PRN Pain 09/03/23 09/03/23 Unknown History (Tylenol) aripiprazole 20 mg tablet 20 mg PO DAILY 09/03/23 09/04/23 1 Week Ago History ~08/27/23 ascorbic acid (vitamin C) 500 mg 500 mg PO DAILY 09/03/23 09/03/23 1 Week Ago History tablet (Vitamin C) ~08/27/23 duloxetine 20 mg capsule,delayed 40 mg PO DAILY 09/03/23 09/04/23 Unknown History release leflunomide 20 mg tablet 20 mg PO DAILY 09/03/23 09/03/23 1 Week Ago History ~08/27/23 losartan 25 mg tablet 25 mg PO DAILY 09/03/23 09/03/23 1 Week Ago History ~08/27/23 omeprazole 20 mg capsule,delayed 40 mg PO DAILY@0630 09/03/23 09/03/23 1 Week Ago History release ~08/27/23 Physical Exam Vital Signs: Last Vital Signs Temp 97.7 F 09/05/23 11:21 Pulse 74 09/05/23 11:21 Resp 18 09/05/23 11:21 BP 117/71 09/05/23 11:21 Pulse Ox 98 09/05/23 11:21 O2 Del Method Room Air 09/05/23 11:21 BMI result Body Mass Index 36.3 Awake. Comfortable. Neck is supple. Mucosa moist. Lungs bilateral scattered rhonchi. Heart S1-S2 heard no gallop. Abdomen soft. Extremities no edema. No involuntary movements. No myoclonus. Results Lab Results 09/05/23 06:12 09/05/23 06:12 Lab results: Chemistry 09/03/23 09/04/23 09/04/23 15:41 06:21 22:26 Sodium 137 137 140 Potassium 2.4 L* D 2.6 L* 4.9 D Carbon Dioxide 31 H 23 16 L BUN 6 L 11 Creatinine 0.77 1.75 H Calcium 9.3 8.4 D 09/05/23 06:12 Sodium 140 Potassium 3.6 D Carbon Dioxide 20 L BUN 21 H Creatinine 4.06 H* Calcium 8.5 Hematology 09/03/23 09/04/23 09/05/23 15:41 06:21 06:12 WBC 13.2 H 11.8 H 12.8 H Hgb 13.6 11.3 L 10.6 L Plt Count 219 208 252 Assessment and Plan (1) Acute hypokalemia: Status: Acute (2) ELISA (acute kidney injury): Status: Acute Plan 48 woman with a ELISA. ELISA is most likely due to vanco induced tubular injury. She could have a component of volume depletion from diarrhea. No reason to believe she is any underlying glomerular nephritis. No evidence of any obstructive uropathy Hypokalemia due to GI losses. Suggestions Hold vancomycin and other nephrotoxic agents. Watch urine output closely. Replace potassium as needed. No absolute indication for dialysis today. Concur with other medical management and we will follow along with the team. Procedures Date of Service Date of Service: 09/05/23
--- NOTE | 2023-09-05 13:52 | HO.PM.IMPN ---
Subjective Subjective Date of Service: 09/05/23 Interval History: f/u on celulitis of the right leg and tigh interval history: redness on leg continues to improve, unfortunately serum creatine has risen a whole lot Physical Exam Vital Signs: Vital Signs: Last Vital Signs Temp 97.7 F 09/05/23 11:21 Pulse 74 09/05/23 11:21 Resp 18 09/05/23 11:21 BP 117/71 09/05/23 11:21 Pulse Ox 98 09/05/23 11:21 O2 Del Method Room Air 09/05/23 11:21 BMI result Body Mass Index 36.3 Objective Data Active Medications Acetaminophen (Acetaminophen 325 Mg Tablet) 650 mg PO Q6H PRN PRN Reason: Pain, Mild (Pain Scale 1-3), fever or headache Last Admin: 09/04/23 20:14 Dose: 650 mg Documented By: DAVID Aripiprazole (Aripiprazole 20 Mg Tablet) 20 mg PO DAILY [facility] Last Admin: 09/05/23 09:08 Dose: 20 mg Documented By: SRI Ascorbic Acid (Ascorbic Acid 500 Mg Tablet) 500 mg PO DAILY [facility] Last Admin: 09/05/23 09:08 Dose: 500 mg Documented By: SRI Aspirin (Aspirin Enteric Coated 81 Mg Tablet.) 81 mg PO DAILY [facility] Last Admin: 09/05/23 09:08 Dose: 81 mg Documented By: SRI Atorvastatin Calcium (Atorvastatin Calcium 40 Mg Tablet) 40 mg PO BEDTIME [facility] Last Admin: 09/04/23 20:14 Dose: 40 mg Documented By: DAVID Benzonatate (Benzonatate 100 Mg Capsule) 100 mg PO TID PRN PRN Reason: Cough Calcium Carbonate (Calcium Carbonate 750 Mg Tab.Chew) 750 mg PO Q4H PRN PRN Reason: Heartburn Clonidine HCl (Clonidine Hcl 0.1 Mg Tablet) 0.1 mg PO BID [facility]; Protocol Last Admin: 09/05/23 09:08 Dose: 0.1 mg Documented By: SRI Cyclobenzaprine HCl (Cyclobenzaprine Hcl 10 Mg Tablet) 10 mg PO BEDTIME PRN PRN Reason: Muscle Spasm Duloxetine HCl (Duloxetine Hcl 20 Mg Capsule.) 40 mg PO DAILY [facility] Last Admin: 09/05/23 09:12 Dose: 40 mg Documented By: SRI Enoxaparin Sodium (Enoxaparin Sodium 40 Mg/0.4 Ml Syringe) 40 mg SUBCUT Q24H [facility] Last Admin: 09/04/23 20:14 Dose: 40 mg Documented By: DAVID Fluticasone/Vilanterol (Fluticasone/Vilanterol 200/25 Blst.W.Dev) 1 puff INHALE DAILY [facility] Last Admin: 09/05/23 07:33 Dose: 1 puff Documented By: LAUREN Clindamycin Phosphate (Cleocin) 600 mg in 50 mls @ 100 mls/hr IV Q8H [facility] Last Infusion: 09/05/23 11:26 Dose: Infused Documented By: SRI Sodium Chloride (Ns) 1,000 mls @ 100 mls/hr IVCONT .Q10H [facility] Last Admin: 09/05/23 09:07 Dose: 100 mls/hr Documented By: SRI Melatonin (Melatonin 3 Mg Tablet) 6 mg PO BEDTIME PRN PRN Reason: Insomnia Montelukast Sodium (Montelukast Sodium 10 Mg Tablet) 10 mg PO BEDTIME [facility] Last Admin: 09/04/23 20:14 Dose: 10 mg Documented By: DAVID Omeprazole (Omeprazole 40 Mg Capsule.Dr) 40 mg PO DAILY@0630 [facility] Last Admin: 09/05/23 05:44 Dose: 40 mg Documented By: PIYUSH Ondansetron HCl (Ondansetron Hcl 4 Mg/2 Ml Vial) 4 mg IVPUSH Q6H PRN PRN Reason: Nausea and Vomiting Last Admin: 09/05/23 01:58 Dose: 4 mg Documented By: PIYUSH Polyethylene Glycol (Polyethylene Glycol 3350 17 Gm Powd.Pack) 17 gm PO DAILY PRN PRN Reason: Constipation Sodium Chloride (0.9 % Sodium Chloride Flush 3 Ml Syringe) 3 ml IVFLUSH QSHIFT [facility] Last Admin: 09/05/23 09:07 Dose: 3 ml Documented By: SRI Labs 09/05/23 06:12 09/05/23 06:12 Labs: Laboratory Results - last 24 hr 09/04/23 09/04/23 09/05/23 16:34 22:26 06:12 MCV 88.8 MCH 28.2 MCHC 31.7 RDW 14.8 Plt Count 252 MPV 11.8 Immature Gran % (Auto) 2.3 H Neut % (Auto) 73.9 H Lymph % (Auto) 16.1 L [place] % (Auto) 6.9 Eos % (Auto) 0.4 Baso % (Auto) 0.4 Lymph # (Auto) 2.1 [place] # (Auto) 0.9 Eos # (Auto) 0.1 Baso # (Auto) 0.1 Abs Immat Gran (auto) 0.30 H Absolute Neuts (auto) 9.5 H Absolute Nucleated RBC 0.000 Nucleated RBC % (auto) 0.0 Hold Purple Top SEE NOTE Anion Gap 15 15 Estim Creat Clear Calc 15.6 Estimated GFR 12 POC Glucose Random Glucose 113 Calcium 8.5 Random Vancomycin 26.6 H* 09/05/23 09/05/23 07:50 11:49 MCV MCH MCHC RDW Plt Count MPV Immature Gran % (Auto) Neut % (Auto) Lymph % (Auto) [place] % (Auto) Eos % (Auto) Baso % (Auto) Lymph # (Auto) [place] # (Auto) Eos # (Auto) Baso # (Auto) Abs Immat Gran (auto) Absolute Neuts (auto) Absolute Nucleated RBC Nucleated RBC % (auto) Hold Purple Top Anion Gap Estim Creat Clear Calc Estimated GFR POC Glucose 112 139 H Random Glucose Calcium Random Vancomycin Microbiology Microbiology Results: Microbiology 09/03/23 17:42 Blood Culture - Preliminary Blood - Venous No growth after 24 hours. 09/03/23 17:38 Blood Culture - Preliminary Blood - Venous No growth after 24 hours. Assessment and Plan (1) Left leg cellulitis: Status: Acute (2) Acute hypokalemia: Status: Acute (3) Cellulitis: Status: Acute Plan Pt is a 48-year-old female with a PMH significant for HTN, HLD, prediabetes, asthma fibromyalgia,?rheumatoid arthritis, GERD, and BONNIE on CPAP who presents to the ED with fever, chills, nausea, and left leg swelling and redness x6 days. Pt will be admitted to the hospital for treatment and further evaluation of left lower extremity cellulitis with sepsis. Left lower extremity cellulitis with sepsis--sepsis resolved, redness much improved, wbc going down Vancomycin stopped due to renal failure Hypokalemia--K is now normal Abnormal EKG, EKG showing diffuse T-wave inversions in anteriolateral and inferior leads No chest pain Likely secondary to hypokalemia repeat ecg HTN--Losartan stopped d/t ELISA ELISA--likely related to Vanco toxicity and possible pre renal as had some diarrhea. Nephrology consult , IVF and follow daily BMP HLD Continue statin Rheumatoid arthritis Continue leflunomide Asthma Not in acute exacerbation Continue home inhalers Mood disorder Continue mood stabilizers Full Code DVT Prophylaxis: Lovenox need for inaptient: IV Abx for cellultis involving more than 50% or left lower extremity Quality Stroke Does the patient have a stroke diagnosis?: No VTE Prior VTE?: No VTE Risk Level:: Medical - moderate - high VTE Device Contraindication: Treatment Not Indicated VTE Drug Contraindication: N/A - Med Ordered
[2023-09-05] MEDS: Atorvastatin Calcium 40 MG TABLET PO (20:41)
[2023-09-05] MEDS: Enoxaparin Sodium 30 MG/0.3 ML SYRINGE SUBCUT (20:41)
[2023-09-05] MEDS: Montelukast Sodium 10 MG TABLET PO (20:41)
[2023-09-06] VITALS (10 sets, daily range): BP systolic 115–135; BP diastolic 59–81; PULSE 72–85; RESP 16–22; TEMP 36.1–37.2; O2SAT 92–98
[2023-09-06] MEDS: Clindamycin Phosphate/D5W 600 MG/50 ML PIGGYBACK 100 MG IV ×3 (03:37→19:31)
[2023-09-06] MEDS: 0.9 % Sodium Chloride 1,000 ML 100 ML IVCONT ×2 (06:09→15:14)
[2023-09-06] MEDS: Omeprazole 40 MG CAPSULE.DR PO (06:09)
[2023-09-06 06:38] LABS: Anion Gap 14 (12-20); Blood Urea Nitrogen 28 mg/dL (9-16); Calcium 8.4 mg/dL (8.4-10.2); Carbon Dioxide 17 mmol/L (22-29); Chloride 113 mmol/L (96-108); Creatinine Clr Calc Pharmacy 11.8; Estimated Glomerular Filt Rate 9; Glucose Random 103 mg/dL (60-115); Potassium 3.5 mmol/L (3.3-5.1); Sodium 140 mmol/L (135-145)
[2023-09-06] MEDS: Fluticasone/Vilanterol 200/25 BLST.W.DEV 1 PUFF INHALE (07:43)
--- NOTE | 2023-09-06 09:44 | P.PNNP_ITS ---
Subjective Subjective Date of Service: 09/06/23 Interval history: Events noted. Nonoliguric No nausea or vomiting Physical Exam 2 Vital Signs: Vital Signs: Last Vital Signs Temp 99.0 F 09/06/23 08:00 Pulse 76 09/06/23 08:00 Resp 18 09/06/23 08:00 BP 117/68 09/06/23 08:00 Pulse Ox 92 09/06/23 08:00 O2 Del Method Room Air 09/06/23 08:00 BMI result Body Mass Index 36.3 Const: Other: Appearance: Alert. Oriented X3. No acute distress. Eyes: Pupils equal, round and reactive to light. ENT: Pharynx normal. Neck: Normal inspection. Neck supple. No lymph nodes noted. No crepitus CVS: Normal heart rate and rhythm. Pulses normal. Normal S1 and S2 Respiratory: No respiratory distress. Breath sounds normal. No Wheezing. No rales Abdomen: Soft and nontender. No rigidity. No distention. Skin: Skin warm and dry. See extremities below Extremities: No lower extremity edema. Left lower extremity, there cellulitis around the tibial area extending upwards to the inner left thigh Neuro: Oriented X 3. No motor deficit. No sensory deficit. Moving all extremities. No slurred speech. CN 2 through 12 grossly intact Psych: calm, cooperative, normal affect Objective Data Labs 09/06/23 05:52 09/07/23 06:23 Labs: Laboratory Results - last 24 hr 09/05/23 09/06/23 11:49 05:52 Hold Purple Top SEE NOTE Sodium 140 Potassium 3.5 Chloride 113 H Carbon Dioxide 17 L Anion Gap 14 BUN 28 H Creatinine 5.35 H* Estim Creat Clear Calc 11.8 Estimated GFR 9 POC Glucose 139 H Random Glucose 103 Calcium 8.4 Microbiology Microbiology Results: Microbiology 09/03/23 17:42 Blood - Venous Blood Culture - Preliminary No growth after 48 hours. 09/03/23 17:38 Blood - Venous Blood Culture - Preliminary No growth after 48 hours. Procedures Date of Service Date of Service: 09/07/23 Assessment & Plan Assessment and plan (1) Left leg cellulitis: Status: Acute (2) Acute hypokalemia: Status: Acute (3) Cellulitis: Status: Acute Plan 48 woman with a ELISA. ELISA is most likely due to vanco induced tubular injury. She could have a component of volume depletion from diarrhea. No reason to believe she is any underlying glomerular nephritis. No evidence of any obstructive uropathy Creatinine continues to trend upwards. No signs or symptoms of uremia. Volume status acceptable. Hypokalemia due to GI losses. Suggestions Hold vancomycin and other nephrotoxic agents. Watch urine output closely. Replace potassium as needed. No absolute indication for dialysis today. Concur with other medical management and we will follow along with the team. Time Spent With Patient Time: Total time managing care of this patient today ____ minutes. Progress Note: Quality Stroke Does the patient have a stroke diagnosis?: No
[2023-09-06] MEDS: Ascorbic Acid 500 MG TABLET PO (10:16)
[2023-09-06] MEDS: 0.9 % Sodium Chloride Flush 3 ML SYRINGE IVFLUSH ×3 (10:16→19:32)
[2023-09-06] MEDS: DULoxetine HCl 20 MG CAPSULE.DR 40 MG PO (10:16)
[2023-09-06] MEDS: ARIPiprazole 20 MG TABLET PO (10:17)
[2023-09-06] MEDS: Aspirin Enteric Coated 81 MG TABLET.DR PO (10:17)
[2023-09-06] MEDS: cloNIDine HCL 0.1 MG TABLET PO ×2 (10:17→22:15)
--- NOTE | 2023-09-06 11:24 | HO.PM.IMPN ---
Subjective Subjective Date of Service: 09/07/23 Interval History: f/u on celulitis of the right leg and tigh interval history: redness on leg continues to improve, unfortunately serum creatine has risen a whole lot Physical Exam Vital Signs: Vital Signs: Last Vital Signs Temp 98.2 F 09/06/23 11:23 Pulse 72 09/06/23 11:23 Resp 18 09/06/23 11:23 BP 134/81 09/06/23 11:23 Pulse Ox 97 09/06/23 11:23 O2 Del Method Room Air 09/06/23 11:23 BMI result Body Mass Index 36.3 General: AO X 3, no acute distress Resp: CTA bilateral CVS: S1,S2,RRR GI: +BS, NT, no distention Skin: No rash Neuro: motor grossly intact Psych: appropriate affect Objective Data Active Medications Acetaminophen (Acetaminophen 325 Mg Tablet) 650 mg PO Q6H PRN PRN Reason: Pain, Mild (Pain Scale 1-3), fever or headache Last Admin: 09/04/23 20:14 Dose: 650 mg Documented By: DAVID Aripiprazole (Aripiprazole 20 Mg Tablet) 20 mg PO DAILY [facility] Last Admin: 09/06/23 10:17 Dose: 20 mg Documented By: TUCKER Ascorbic Acid (Ascorbic Acid 500 Mg Tablet) 500 mg PO DAILY [facility] Last Admin: 09/06/23 10:16 Dose: 500 mg Documented By: TUCKER Aspirin (Aspirin Enteric Coated 81 Mg Tablet.Dr) 81 mg PO DAILY [facility] Last Admin: 09/06/23 10:17 Dose: 81 mg Documented By: TUCKER Atorvastatin Calcium (Atorvastatin Calcium 40 Mg Tablet) 40 mg PO BEDTIME [facility] Last Admin: 09/05/23 20:41 Dose: 40 mg Documented By: GM Benzonatate (Benzonatate 100 Mg Capsule) 100 mg PO TID PRN PRN Reason: Cough Calcium Carbonate (Calcium Carbonate 750 Mg Tab.Chew) 750 mg PO Q4H PRN PRN Reason: Heartburn Clonidine HCl (Clonidine Hcl 0.1 Mg Tablet) 0.1 mg PO BID [facility]; Protocol Last Admin: 09/06/23 10:17 Dose: 0.1 mg Documented By: TUCKER Cyclobenzaprine HCl (Cyclobenzaprine Hcl 10 Mg Tablet) 10 mg PO BEDTIME PRN PRN Reason: Muscle Spasm Duloxetine HCl (Duloxetine Hcl 20 Mg Capsule.) 40 mg PO DAILY [facility] Last Admin: 09/06/23 10:16 Dose: 40 mg Documented By: TUCKER Enoxaparin Sodium (Enoxaparin Sodium 30 Mg/0.3 Ml Syringe) 30 mg SUBCUT Q24H [facility] Last Admin: 09/05/23 20:41 Dose: 30 mg Documented By: GM Fluticasone/Vilanterol (Fluticasone/Vilanterol 200/25 Blst.W.Dev) 1 puff INHALE DAILY [facility] Last Admin: 09/06/23 07:43 Dose: 1 puff Documented By: AIDEN Clindamycin Phosphate (Cleocin) 600 mg in 50 mls @ 100 mls/hr IV Q8H [facility] Last Infusion: 09/06/23 10:55 Dose: Infused Documented By: TUCKER Sodium Chloride (Ns) 1,000 mls @ 100 mls/hr IVCONT .Q10H [facility] Last Admin: 09/06/23 06:09 Dose: 100 mls/hr Documented By: DENY Melatonin (Melatonin 3 Mg Tablet) 6 mg PO BEDTIME PRN PRN Reason: Insomnia Montelukast Sodium (Montelukast Sodium 10 Mg Tablet) 10 mg PO BEDTIME [facility] Last Admin: 09/05/23 20:41 Dose: 10 mg Documented By: GM Omeprazole (Omeprazole 40 Mg Capsule.) 40 mg PO DAILY@0630 [facility] Last Admin: 09/06/23 06:09 Dose: 40 mg Documented By: DENY Ondansetron HCl (Ondansetron Hcl 4 Mg/2 Ml Vial) 4 mg IVPUSH Q6H PRN PRN Reason: Nausea and Vomiting Last Admin: 09/05/23 14:56 Dose: 4 mg Documented By: SRI Polyethylene Glycol (Polyethylene Glycol 3350 17 Gm Powd.Pack) 17 gm PO DAILY PRN PRN Reason: Constipation Sodium Chloride (0.9 % Sodium Chloride Flush 3 Ml Syringe) 3 ml IVFLUSH QSHIFT [facility] Last Admin: 09/06/23 10:16 Dose: 3 ml Documented By: TUCKER Labs 09/06/23 05:52 09/07/23 06:23 Labs: Laboratory Results - last 24 hr 09/05/23 09/06/23 11:49 05:52 Hold Purple Top SEE NOTE Anion Gap 14 Estim Creat Clear Calc 11.8 Estimated GFR 9 POC Glucose 139 H Random Glucose 103 Calcium 8.4 Microbiology Microbiology Results: Microbiology 09/03/23 17:42 Blood Culture - Preliminary Blood - Venous No growth after 48 hours. 09/03/23 17:38 Blood Culture - Preliminary Blood - Venous No growth after 48 hours. Assessment and Plan (1) Left leg cellulitis: Status: Acute (2) Acute hypokalemia: Status: Acute (3) Cellulitis: Status: Acute Plan Pt is a 48-year-old female with a PMH significant for HTN, HLD, prediabetes, asthma fibromyalgia,?rheumatoid arthritis, GERD, and BONNIE on CPAP who presents to the ED with fever, chills, nausea, and left leg swelling and redness x6 days. Pt will be admitted to the hospital for treatment and further evaluation of left lower extremity cellulitis with sepsis. Left lower extremity cellulitis with sepsis--sepsis resolved, redness much improved, wbc going down Vancomycin stopped due to renal failure Hypokalemia--K is now normal Abnormal EKG, EKG showing diffuse T-wave inversions in anteriolateral and inferior leads No chest pain, repeat ECG show reveral of changes and thus likely due to low K HTN--Losartan stopped d/t ELISA ELISA--likely ATN related to Vanco toxicity, Creatinine still trending up, she is reporting a good urine output. continue IVF and close monitoring of renal function, nephrology involed HLD Continue statin Rheumatoid arthritis Continue leflunomide Asthma Not in acute exacerbation Continue home inhalers Mood disorder Continue mood stabilizers Full Code DVT Prophylaxis: Lovenox need for inaptient: IV Abx for cellultis involving more than 50% or left lower extremity, and ELISA needing IVF and close monitoring Quality Stroke Does the patient have a stroke diagnosis?: No VTE Prior VTE?: No VTE Risk Level:: Medical - moderate - high VTE Device Contraindication: Treatment Not Indicated VTE Drug Contraindication: N/A - Med Ordered
[2023-09-06 12:27] LABS: MANUAL DIFF FLAG NO
[2023-09-06 12:32] LABS: Basophils Absolute Auto 0.1 X10*3/uL (0.0-0.2); Basophils Percent Auto 0.4 % (0-2); Eosinophils Percent Auto 0.3 % (0-4); Hematocrit 31.9 % (37.0-47.0); Hemoglobin 10.3 g/dl (12.0-16.0); Imm Gran Abs Auto 0.29 X10*3/uL (0.00-0.03); Imm Gran Pct Auto 2.3 % (0.0-0.4); Lymphocytes Absolute Auto 1.9 X10*3/uL (1.2-4.9); Lymphocytes Percent Auto 14.8 % (20-40); Mean Corpuscular HGB Conc 32.3 g/dl (31.0-35.0); Mean Corpuscular Hemoglobin 28.9 pg (27.0-33.0); Mean Corpuscular Volume 89.6 fL (80.0-98.0); Mean Platelet Volume 11.6 fL (9.4-12.3); Monocytes Absolute Auto 0.9 X10*3/uL (0.1-1.2); Monocytes Percent Auto 7.2 % (2-11); Neutrophils Absolute Auto 9.4 x10*3/uL (2.0-8.3); Platelet Count 296 X10*3/uL (160-400); Red Blood Count 3.56 X10*6/uL (4.20-5.50); Red Cell Distribution Width 15.2 % (11.0-16.0); White Blood Count 12.6 X10*3/uL (4.8-10.8)
--- NOTE | 2023-09-06 14:05 | P.CDIM_ITS ---
PROVIDER RESPONSE TEXT: To clarify, the appropriate diagnosis supported by the clinical indicators: Mild intermittent: mild intermittent without exacerbation QUERY TEXT: PHYSICIAN'S DOCUMENTATION REQUEST Date of Query: 09/06/2023 10:43 AM EDT Patient Name: Mariluz Pisano Admit Date: 09/03/2023 Dear Allen Gorman, A review of the medical record indicates additional documentation may be needed. Please review below and update the documentation accordingly. The diagnosis of asthma was documented in the record on 09/05/23. Additional clinical indicators from the record include: Asthma Not in acute exacerbation Continue home inhalers Based on the above, please clarify in the Progress Notes further specificity regarding the type and a cuity of the asthma: Mild intermittent Please specify if with or without acute exacerbation or status asthmaticus Mild persistent Please specify if with or without acute exacerbation or status asthmaticus Moderate persistent Please specify if with or without acute exacerbation or status asthmaticus Severe persistent Please specify if with or without acute exacerbation or status asthmaticus Exercise induced Please specify if with or without acute exacerbation or status asthmaticus Chronic obstructive asthma and indicate if with acute lower respiratory infection Please specify if with or without acute exacerbation or status asthmaticus Asthma with underlying COPD and indicate if with acute lower respiratory infection Please specify if with or without acute exacerbation or status asthmaticus Other (explain) Clinically unable to determine (explain) Thank you, Carolyn Garrido RN Use of terms such as suspected, likely, concern for, or probable (associated with a specific diagnosi s that is being evaluated, monitored, or treated as if it exists) are acceptable and can be coded in the inpatient se tting, when documented at the time of discharge. Please use your independent medical judgment in providing your response. THIS QUERY IS PART OF THE PERMANENT MEDICAL RECORD
[2023-09-06 15:41] LABS: Vancomycin Random 20.1 mcg/mL (15-20)
[2023-09-06] MEDS: Sodium Bicarbonate 650 MG TABLET PO ×2 (16:42→22:15)
[2023-09-06] MEDS: Enoxaparin Sodium 30 MG/0.3 ML SYRINGE SUBCUT (19:32)
[2023-09-06] MEDS: Atorvastatin Calcium 40 MG TABLET PO (22:15)
[2023-09-06] MEDS: Montelukast Sodium 10 MG TABLET PO (22:16)
[2023-09-07] VITALS (8 sets, daily range): BP systolic 128–147; BP diastolic 72–78; PULSE 62–80; RESP 16–20; TEMP 36.1–36.8; O2SAT 96–99
[2023-09-07] MEDS: 0.9 % Sodium Chloride 1,000 ML 100 ML IVCONT (03:15)
[2023-09-07] MEDS: Clindamycin Phosphate/D5W 600 MG/50 ML PIGGYBACK 100 MG IV ×2 (03:15→11:08)
[2023-09-07] MEDS: Omeprazole 40 MG CAPSULE.DR PO (06:30)
[2023-09-07 07:17] LABS: Anion Gap 12 (12-20); Blood Urea Nitrogen 35 mg/dL (9-16); Calcium 8.4 mg/dL (8.4-10.2); Carbon Dioxide 18 mmol/L (22-29); Chloride 114 mmol/L (96-108); Estimated Glomerular Filt Rate 7; Glucose Random 97 mg/dL (60-115); Potassium 3.7 mmol/L (3.3-5.1); Sodium 140 mmol/L (135-145)
[2023-09-07] MEDS: 0.9 % Sodium Chloride Flush 3 ML SYRINGE IVFLUSH ×3 (07:54→23:57)
[2023-09-07] MEDS: Fluticasone/Vilanterol 200/25 BLST.W.DEV 1 PUFF INHALE (07:59)
[2023-09-07] MEDS: cloNIDine HCL 0.1 MG TABLET PO ×2 (08:25→21:40)
[2023-09-07] MEDS: DULoxetine HCl 20 MG CAPSULE.DR 40 MG PO (08:25)
[2023-09-07] MEDS: Ascorbic Acid 500 MG TABLET PO (08:25)
[2023-09-07] MEDS: Sodium Bicarbonate 650 MG TABLET PO ×3 (08:25→21:41)
[2023-09-07] MEDS: ARIPiprazole 20 MG TABLET PO (08:25)
[2023-09-07] MEDS: Aspirin Enteric Coated 81 MG TABLET.DR PO (08:26)
[2023-09-07] MEDS: Acetaminophen 325 MG TABLET 650 MG PO (08:26)
[2023-09-07] MEDS: Lactated Ringers 1,000 ML 125 ML IVCONT (10:12)
--- NOTE | 2023-09-07 12:14 | PM.PNNEP ---
Subjective Subjective Date of Service: 09/07/23 Interval history: f/u on celulitis of the right leg and tigh interval history: redness on leg continues to improve, unfortunately serum creatine has risen a whole lot Physical Exam Vital Signs: Vital Signs: Last Vital Signs Temp 98.2 F 09/07/23 11:44 Pulse 62 09/07/23 11:44 Resp 18 09/07/23 11:44 BP 139/75 09/07/23 11:44 Pulse Ox 97 09/07/23 11:44 O2 Del Method Room Air 09/07/23 11:44 BMI result Body Mass Index 36.3 Const: Other: Appearance: Alert. Oriented X3. No acute distress. Eyes: Pupils equal, round and reactive to light. ENT: Pharynx normal. Neck: Normal inspection. Neck supple. No lymph nodes noted. No crepitus CVS: Normal heart rate and rhythm. Pulses normal. Normal S1 and S2 Respiratory: No respiratory distress. Breath sounds normal. No Wheezing. No rales Abdomen: Soft and nontender. No rigidity. No distention. Skin: Skin warm and dry. See extremities below Extremities: No lower extremity edema. Left lower extremity, there cellulitis around the tibial area extending upwards to the inner left thigh Neuro: Oriented X 3. No motor deficit. No sensory deficit. Moving all extremities. No slurred speech. CN 2 through 12 grossly intact Psych: calm, cooperative, normal affect Objective Data Labs 09/06/23 05:52 09/08/23 06:26 Labs: Laboratory Results - last 24 hr 09/06/23 09/06/23 09/07/23 05:52 14:56 06:23 WBC 12.6 H RBC 3.56 L Hgb 10.3 L Hct 31.9 L MCV 89.6 MCH 28.9 MCHC 32.3 RDW 15.2 Plt Count 296 MPV 11.6 Immature Gran % (Auto) 2.3 H Neut % (Auto) 75.0 H Lymph % (Auto) 14.8 L [place] % (Auto) 7.2 Eos % (Auto) 0.3 Baso % (Auto) 0.4 Lymph # (Auto) 1.9 [place] # (Auto) 0.9 Eos # (Auto) 0.0 Baso # (Auto) 0.1 Abs Immat Gran (auto) 0.29 H Absolute Neuts (auto) 9.4 H Absolute Nucleated RBC 0.000 Nucleated RBC % (auto) 0.0 Hold Purple Top SEE NOTE Sodium 140 Potassium 3.7 Chloride 114 H Carbon Dioxide 18 L Anion Gap 12 BUN 35 H Creatinine 6.32 H* Estim Creat Clear Calc 10.0 Estimated GFR 7 Random Glucose 97 Calcium 8.4 Random Vancomycin 20.1 H Microbiology Microbiology Results: Microbiology 09/03/23 17:42 Blood - Venous Blood Culture - Preliminary No growth after 48 hours. 09/03/23 17:38 Blood - Venous Blood Culture - Preliminary No growth after 48 hours. Procedures Date of Service Date of Service: 09/08/23 Assessment & Plan Assessment and plan (1) Left leg cellulitis: Status: Acute (2) Acute hypokalemia: Status: Acute (3) Cellulitis: Status: Acute Plan 48 woman with a ELISA. ELISA is most likely due to vanco induced tubular injury. She could have a component of volume depletion from diarrhea. No reason to believe she is any underlying glomerular nephritis. No evidence of any obstructive uropathy Creatinine continues to trend upwards. No signs or symptoms of uremia. Volume status acceptable. Hypokalemia due to GI losses. Suggestions Hold vancomycin and other nephrotoxic agents. Watch urine output closely. Replace potassium as needed. No absolute indication for dialysis today. Concur with other medical management and we will follow along with the team. Time Spent With Patient Time: Total time managing care of this patient today ____ minutes. Progress Note: Quality Stroke Does the patient have a stroke diagnosis?: No
--- NOTE | 2023-09-07 12:28 | MHC.CM.PN ---
Pt is not ready for DC yet, he requires continued treatment for cellulitis and ELISA. DCP is self care. CM to follow for DC needs.
--- NOTE | 2023-09-07 14:07 | P.PNIM_ITS ---
Subjective Subjective Date of Service: 09/08/23 Interval History: F/u on celulitis of the right leg and tigh, and ELISA attributed to Vancomycin toxicity interval history: redness on leg continues to improve, and nearly all resolved unfortunately serum creatine continue to rise Physical Exam 2 Vital Signs: Vital Signs: Last Vital Signs Temp 98.2 F 09/07/23 11:44 Pulse 62 09/07/23 11:44 Resp 18 09/07/23 11:44 BP 139/75 09/07/23 11:44 Pulse Ox 97 09/07/23 11:44 O2 Del Method Room Air 09/07/23 11:44 BMI result Body Mass Index 36.3 General: AO X 3, no acute distress Resp: CTA bilateral CVS: S1,S2,RRR GI: +BS, NT, no distention Skin: before today 09/06 Neuro: motor grossly intact Psych: appropriate affect Objective Data Active Medications Acetaminophen (Acetaminophen 325 Mg Tablet) 650 mg PO Q6H PRN PRN Reason: Pain, Mild (Pain Scale 1-3), fever or headache Last Admin: 09/07/23 08:26 Dose: 650 mg Documented By: TARUN Aripiprazole (Aripiprazole 20 Mg Tablet) 20 mg PO DAILY [facility] Last Admin: 09/07/23 08:25 Dose: 20 mg Documented By: TARUN Ascorbic Acid (Ascorbic Acid 500 Mg Tablet) 500 mg PO DAILY [facility] Last Admin: 09/07/23 08:25 Dose: 500 mg Documented By: TARUN Aspirin (Aspirin Enteric Coated 81 Mg Tablet.) 81 mg PO DAILY [facility] Last Admin: 09/07/23 08:26 Dose: 81 mg Documented By: TARUN Atorvastatin Calcium (Atorvastatin Calcium 40 Mg Tablet) 40 mg PO BEDTIME [facility] Last Admin: 09/06/23 22:15 Dose: 40 mg Documented By: LAFLAMC Benzonatate (Benzonatate 100 Mg Capsule) 100 mg PO TID PRN PRN Reason: Cough Calcium Carbonate (Calcium Carbonate 750 Mg Tab.Chew) 750 mg PO Q4H PRN PRN Reason: Heartburn Clonidine HCl (Clonidine Hcl 0.1 Mg Tablet) 0.1 mg PO BID [facility]; Protocol Last Admin: 09/07/23 08:25 Dose: 0.1 mg Documented By: TARUN Cyclobenzaprine HCl (Cyclobenzaprine Hcl 10 Mg Tablet) 10 mg PO BEDTIME PRN PRN Reason: Muscle Spasm Duloxetine HCl (Duloxetine Hcl 20 Mg Capsule.) 40 mg PO DAILY [facility] Last Admin: 09/07/23 08:25 Dose: 40 mg Documented By: TARUN Enoxaparin Sodium (Enoxaparin Sodium 30 Mg/0.3 Ml Syringe) 30 mg SUBCUT Q24H [facility] Last Admin: 09/06/23 19:32 Dose: 30 mg Documented By: RENEE Fluticasone/Vilanterol (Fluticasone/Vilanterol 200/25 Blst.W.Dev) 1 puff INHALE DAILY [facility] Last Admin: 09/07/23 07:59 Dose: 1 puff Documented By: DIONISIO Clindamycin Phosphate (Cleocin) 600 mg in 50 mls @ 100 mls/hr IV Q8H [facility] Last Infusion: 09/07/23 12:01 Dose: Infused Documented By: TARUN Melatonin (Melatonin 3 Mg Tablet) 6 mg PO BEDTIME PRN PRN Reason: Insomnia Montelukast Sodium (Montelukast Sodium 10 Mg Tablet) 10 mg PO BEDTIME [facility] Last Admin: 09/06/23 22:16 Dose: 10 mg Documented By: RENEE Omeprazole (Omeprazole 40 Mg Capsule.) 40 mg PO DAILY@0630 [facility] Last Admin: 09/07/23 06:30 Dose: 40 mg Documented By: RENEE Ondansetron HCl (Ondansetron Hcl 4 Mg/2 Ml Vial) 4 mg IVPUSH Q6H PRN PRN Reason: Nausea and Vomiting Last Admin: 09/05/23 14:56 Dose: 4 mg Documented By: SRI Polyethylene Glycol (Polyethylene Glycol 3350 17 Gm Powd.Pack) 17 gm PO DAILY PRN PRN Reason: Constipation Sodium Bicarbonate (Sodium Bicarbonate 650 Mg Tablet) 650 mg PO TID [facility] Last Admin: 09/07/23 08:25 Dose: 650 mg Documented By: TARUN Sodium Chloride (0.9 % Sodium Chloride Flush 3 Ml Syringe) 3 ml IVFLUSH QSHIFT [facility] Last Admin: 09/07/23 07:54 Dose: 3 ml Documented By: TARUN Labs 09/06/23 05:52 09/08/23 06:26 Labs: Laboratory Results - last 24 hr 09/06/23 09/07/23 14:56 06:23 Hold Purple Top SEE NOTE Anion Gap 12 Estim Creat Clear Calc 10.0 Estimated GFR 7 Random Glucose 97 Calcium 8.4 Random Vancomycin 20.1 H Assessment and Plan (1) Left leg cellulitis: Status: Acute (2) Acute hypokalemia: Status: Acute (3) Cellulitis: Status: Acute Plan Pt is a 48-year-old female with a PMH significant for HTN, HLD, prediabetes, asthma fibromyalgia,?rheumatoid arthritis, GERD, and BONNIE on CPAP who presents to the ED with fever, chills, nausea, and left leg swelling and redness x6 days. Pt will be admitted to the hospital for treatment and further evaluation of left lower extremity cellulitis with sepsis. ELISA--likely ATN related to Vanco toxicity, Creatinine still trending up. She has good urine output Stopping IVF giving good urine output, and highly fluid positive,continue monitoring BMP, Nephrology guiding us Left lower extremity cellulitis with sepsis--sepsis resolved, redness nearly resolved. Vancomycin stopped due to renal failure, has been on Clindamycin, now diarrhea, checking with ID to see if we can change to Doxy Hypokalemia--K is now normal Abnormal EKG, EKG showing diffuse T-wave inversions in anteriolateral and inferior leads No chest pain, repeat ECG show reveral of changes and thus likely due to low K HTN--Losartan stopped d/t ELISA Diarrhea, possible due to Abx, if persists check Cdif HLD Continue statin Rheumatoid arthritis Continue leflunomide Asthma Not in acute exacerbation Continue home inhalers Mood disorder Continue mood stabilizers Full Code DVT Prophylaxis: Lovenox need for inaptient: IV Abx for cellultis involving more than 50% or left lower extremity, and ELISA needing IVF and close monitoring Quality Stroke Does the patient have a stroke diagnosis?: No VTE Prior VTE?: No VTE Risk Level:: Medical - moderate - high VTE Device Contraindication: Treatment Not Indicated VTE Drug Contraindication: N/A - Med Ordered
[2023-09-07] MEDS: Doxycycline Hyclate 100 MG in 0.9 % Sodium Chloride 250 ML 166.67 MG IV (21:38)
[2023-09-07] MEDS: Enoxaparin Sodium 30 MG/0.3 ML SYRINGE SUBCUT (21:38)
[2023-09-07] MEDS: Atorvastatin Calcium 40 MG TABLET PO (21:40)
[2023-09-07] MEDS: Montelukast Sodium 10 MG TABLET PO (21:40)
[2023-09-07 22:48] LABS: CDiff Gene PCR NEGATIVE (Negative)
[2023-09-08] VITALS (8 sets, daily range): BP systolic 119–139; BP diastolic 67–83; PULSE 66–81; RESP 17–20; TEMP 36.2–36.9; O2SAT 95–98
--- NOTE | 2023-09-08 01:15 | W.PM.IDCN ---
History of Present Illness Data of Consult Service Date: 09/07/23 Primary Care Provider: Kay Pedersen MD HPI Reason for consult: left leg erythema She has had five days increased erythema to left leg ascending from urbano to thigh. She has no fever or chills. She has no injury or tinea pedis. She has received Vancomycin x 1 and has renal failure. Clindamycin has been giving diarrhea. Cellulitis is much better. 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 Mother History of high blood pressure Family history: reviewed and not pertinent Surgical History Surgical History History of esophagogastroduodenoscopy (EGD) History of laparoscopic cholecystectomy Hx of tubal ligation History of partial hysterectomy Hx of endoscopy History of colonoscopy Social History Social History Household Members: None Housing: Apartment Do you presently have visiting nurse or other home services: No Alcohol intake: current Alcohol intake frequency: holidays/special occasions only Alcohol type: beer and wine Patient Tobacco Use Status: Former Tobacco user Tobacco use type: Cigarette Smoked in Last 30 Days: No e-Cigarette/Vaping Use: Never Used Use of substances other than those prescribed or required for medical reasons: No Substance Use Type: Marijuana Currently Displaying Signs/Symptoms of Drug Intoxication Withdrawal: No Have you been hit, kicked, punched, or otherwise hurt by someone within the past year? If so, by whom?: No Is there a partner from a previous relationship who is making you feel unsafe now?: No Are you made to feel afraid or neglected: No Advance Directives: No Advance Directives Information Provided: No Do you have a plan to hurt others: No Plan Patient : No service: No Current occupational status: disabled Meds Allergies Allergy/AdvReac Type Severity Reaction Status Date / Time penicillin G [PENICILLIN G] Allergy Severe DIZZINESS Verified 09/03/23 14:59 tramadol Allergy Severe Vomiting Verified 09/03/23 14:59 and sweats Active Medications: Current Medications Acetaminophen (Acetaminophen 325 Mg Tablet) 650 mg PO Q6H PRN PRN Reason: Pain, Mild (Pain Scale 1-3), fever or headache Last Admin: 09/07/23 08:26 Dose: 650 mg Aripiprazole (Aripiprazole 20 Mg Tablet) 20 mg PO DAILY [facility] Last Admin: 09/07/23 08:25 Dose: 20 mg Ascorbic Acid (Ascorbic Acid 500 Mg Tablet) 500 mg PO DAILY [facility] Last Admin: 09/07/23 08:25 Dose: 500 mg Aspirin (Aspirin Enteric Coated 81 Mg Tablet.) 81 mg PO DAILY [facility] Last Admin: 09/07/23 08:26 Dose: 81 mg Atorvastatin Calcium (Atorvastatin Calcium 40 Mg Tablet) 40 mg PO BEDTIME [facility] Last Admin: 09/07/23 21:40 Dose: 40 mg Benzonatate (Benzonatate 100 Mg Capsule) 100 mg PO TID PRN PRN Reason: Cough Calcium Carbonate (Calcium Carbonate 750 Mg Tab.Chew) 750 mg PO Q4H PRN PRN Reason: Heartburn Clonidine HCl (Clonidine Hcl 0.1 Mg Tablet) 0.1 mg PO BID [facility]; Protocol Last Admin: 09/07/23 21:40 Dose: 0.1 mg Cyclobenzaprine HCl (Cyclobenzaprine Hcl 10 Mg Tablet) 10 mg PO BEDTIME PRN PRN Reason: Muscle Spasm Duloxetine HCl (Duloxetine Hcl 20 Mg Capsule.) 40 mg PO DAILY [facility] Last Admin: 09/07/23 08:25 Dose: 40 mg Enoxaparin Sodium (Enoxaparin Sodium 30 Mg/0.3 Ml Syringe) 30 mg SUBCUT Q24H [facility] Last Admin: 09/07/23 21:38 Dose: 30 mg Fluticasone/Vilanterol (Fluticasone/Vilanterol 200/25 Blst.W.Dev) 1 puff INHALE DAILY [facility] Last Admin: 09/07/23 07:59 Dose: 1 puff Doxycycline Hyclate 100 mg/ (Sodium Chloride) 250 mls @ 166.67 mls/hr IV BID [facility] Last Infusion: 09/07/23 23:23 Dose: Infused Melatonin (Melatonin 3 Mg Tablet) 6 mg PO BEDTIME PRN PRN Reason: Insomnia Montelukast Sodium (Montelukast Sodium 10 Mg Tablet) 10 mg PO BEDTIME [facility] Last Admin: 09/07/23 21:40 Dose: 10 mg Omeprazole (Omeprazole 40 Mg Capsule.Dr) 40 mg PO DAILY@0630 [facility] Last Admin: 09/07/23 06:30 Dose: 40 mg Ondansetron HCl (Ondansetron Hcl 4 Mg/2 Ml Vial) 4 mg IVPUSH Q6H PRN PRN Reason: Nausea and Vomiting Last Admin: 09/05/23 14:56 Dose: 4 mg Polyethylene Glycol (Polyethylene Glycol 3350 17 Gm Powd.Pack) 17 gm PO DAILY PRN PRN Reason: Constipation Sodium Bicarbonate (Sodium Bicarbonate 650 Mg Tablet) 650 mg PO TID [facility] Last Admin: 09/07/23 21:41 Dose: 650 mg Sodium Chloride (0.9 % Sodium Chloride Flush 3 Ml Syringe) [address] [facility] Last Admin: 09/07/23 23:57 Dose: 3 ml Home Medications ?Medication ?Instructions ?Recorded ?Confirmed ?Last Taken ?Type montelukast 10 mg tablet 10 mg PO BEDTIME 05/22/20 09/03/23 1 Week Ago History (Singulair) ~08/27/23 clonidine HCl 0.1 mg tablet 0.1 mg PO BID 11/19/20 09/04/23 1 Week Ago History ~08/27/23 aspirin 81 mg tablet,delayed 81 mg PO DAILY 05/20/21 09/03/23 1 Week Ago History release ~08/27/23 atorvastatin 40 mg tablet 40 mg PO BEDTIME 05/20/21 09/03/23 1 Week Ago History ~08/27/23 budesonide-formoterol HFA 160 2 puff inhalation BID 03/09/22 09/03/23 1 Week Ago History mcg-4.5 mcg/actuation aerosol ~08/27/23 inhaler (Symbicort) cyclobenzaprine 10 mg tablet 10 mg PO BEDTIME PRN Muscle Spasm 03/31/23 09/03/23 1 Week Ago History ~08/27/23 acetaminophen 325 mg tablet 650 mg PO Q6H PRN Pain 09/03/23 09/03/23 Unknown History (Tylenol) aripiprazole 20 mg tablet 20 mg PO DAILY 09/03/23 09/04/23 1 Week Ago History ~08/27/23 ascorbic acid (vitamin C) 500 mg 500 mg PO DAILY 09/03/23 09/03/23 1 Week Ago History tablet (Vitamin C) ~08/27/23 duloxetine 20 mg capsule,delayed 40 mg PO DAILY 09/03/23 09/04/23 Unknown History release leflunomide 20 mg tablet 20 mg PO DAILY 09/03/23 09/03/23 1 Week Ago History ~08/27/23 losartan 25 mg tablet 25 mg PO DAILY 09/03/23 09/03/23 1 Week Ago History ~08/27/23 omeprazole 20 mg capsule,delayed 40 mg PO DAILY@0630 09/03/23 09/03/23 1 Week Ago History release ~08/27/23 Physical Exam Vital Signs: Vital Signs: Last Vital Signs Temp 97.6 F 09/08/23 00:00 Pulse 69 09/08/23 00:00 Resp 20 09/08/23 00:00 BP 119/71 09/08/23 00:00 Pulse Ox 96 09/08/23 00:00 O2 Del Method CPAP 09/08/23 00:00 BMI result Body Mass Index 36.3 Const: General: cooperative HEENT: Head: Yes normal to inspection Face and sinus: Yes normal facial exam Mouth: Normal oral and palatal mucosa present Teeth and gingiva: dentition normal Eyes: General: appearance normal, both eyes and all related structures Pupils: Equal, round and reactive pupils present Resp: Effort & Inspection: normal respiratory effort Cardio: Rate: regular rate Rhythm: regular rhythm GI: Palpation (GI): Soft to palpation and nontender : General: Yes no CVA tenderness Back/Spine/Pelvis: Back: no CVA tenderness Skin: General skin exam: no rashes or lesions noted Neuro: General: moves all extremities Cranial nerves: Yes Equal, round and reactive pupils present Extrem: Other: improving left leg cellultis Psych: Appearance: grossly normal Results Labs 09/06/23 05:52 09/07/23 06:23 Labs: BMP 09/07/23 06:23 Sodium 140 Potassium 3.7 Chloride 114 H Carbon Dioxide 18 L BUN 35 H Creatinine 6.32 H* Calcium 8.4 Microbiology Microbiology Results: Microbiology 09/03/23 17:42 Blood - Venous Blood Culture - Preliminary No growth after 48 hours. 09/03/23 17:38 Blood - Venous Blood Culture - Preliminary No growth after 48 hours. Assessment and Plan (1) Left leg cellulitis: Status: Acute (2) ELISA (acute kidney injury): Status: Acute Plan Change to Doxycycline and can give po when taking po well for one week. No further Vancomycin
[2023-09-08] MEDS: Omeprazole 40 MG CAPSULE.DR PO (05:56)
[2023-09-08] MEDS: Fluticasone/Vilanterol 200/25 BLST.W.DEV 1 PUFF INHALE (07:43)
[2023-09-08 07:48] LABS: Glucose, Whole Blood 83 mg/dL (60-115)
[2023-09-08 08:02] LABS: Anion Gap 14 (12-20); Blood Urea Nitrogen 39 mg/dL (9-16); Calcium 8.1 mg/dL (8.4-10.2); Carbon Dioxide 18 mmol/L (22-29); Chloride 113 mmol/L (96-108); Creatinine Clr Calc Pharmacy 10.1; Estimated Glomerular Filt Rate 7; Glucose Random 94 mg/dL (60-115); Potassium 3.3 mmol/L (3.3-5.1); Sodium 142 mmol/L (135-145)
[2023-09-08] MEDS: Aspirin Enteric Coated 81 MG TABLET.DR PO (09:12)
[2023-09-08] MEDS: DULoxetine HCl 20 MG CAPSULE.DR 40 MG PO (09:12)
[2023-09-08] MEDS: Sodium Bicarbonate 650 MG TABLET PO ×3 (09:12→19:35)
[2023-09-08] MEDS: Ascorbic Acid 500 MG TABLET PO (09:12)
[2023-09-08] MEDS: ARIPiprazole 20 MG TABLET PO (09:12)
[2023-09-08] MEDS: cloNIDine HCL 0.1 MG TABLET PO ×2 (09:12→19:35)
[2023-09-08] MEDS: Doxycycline Hyclate 100 MG in 0.9 % Sodium Chloride 250 ML 166.67 MG IV (09:13)
[2023-09-08 12:22] LABS: Glucose, Whole Blood 116 mg/dL (60-115)
--- NOTE | 2023-09-08 12:26 | HO.PM.IMPN ---
Subjective Subjective Date of Service: 09/08/23 Interval History: F/u on celulitis of the right leg and tigh, and ELISA attributed to Vancomycin toxicity interval history: redness on leg continues to improve, and nearly all resolved unfortunately serum creatine is still high but appear to have peaked and slightly lower today. She reports that her urine output is normal or regular , I/O has not been tracked well Physical Exam Vital Signs: Vital Signs: Last Vital Signs Temp 97.6 F 09/08/23 12:00 Pulse 66 09/08/23 12:00 Resp 17 09/08/23 12:00 BP 135/73 09/08/23 12:00 Pulse Ox 98 09/08/23 12:00 O2 Del Method Room Air 09/08/23 12:00 BMI result Body Mass Index 36.3 General: AO X 3, no acute distress Resp: CTA bilateral CVS: S1,S2,RRR GI: +BS, NT, no distention Skin: before today 09/06 (looks less red today) Neuro: motor grossly intact Psych: appropriate affect Objective Data Active Medications Acetaminophen (Acetaminophen 325 Mg Tablet) 650 mg PO Q6H PRN PRN Reason: Pain, Mild (Pain Scale 1-3), fever or headache Last Admin: 09/07/23 08:26 Dose: 650 mg Documented By: TARUN Aripiprazole (Aripiprazole 20 Mg Tablet) 20 mg PO DAILY [facility] Last Admin: 09/08/23 09:12 Dose: 20 mg Documented By: JOYCE Ascorbic Acid (Ascorbic Acid 500 Mg Tablet) 500 mg PO DAILY [facility] Last Admin: 09/08/23 09:12 Dose: 500 mg Documented By: JOYCE Aspirin (Aspirin Enteric Coated 81 Mg Tablet.) 81 mg PO DAILY [facility] Last Admin: 09/08/23 09:12 Dose: 81 mg Documented By: JOYCE Atorvastatin Calcium (Atorvastatin Calcium 40 Mg Tablet) 40 mg PO BEDTIME [facility] Last Admin: 09/07/23 21:40 Dose: 40 mg Documented By: OLGA Benzonatate (Benzonatate 100 Mg Capsule) 100 mg PO TID PRN PRN Reason: Cough Calcium Carbonate (Calcium Carbonate 750 Mg Tab.Chew) 750 mg PO Q4H PRN PRN Reason: Heartburn Clonidine HCl (Clonidine Hcl 0.1 Mg Tablet) 0.1 mg PO BID [facility]; Protocol Last Admin: 09/08/23 09:12 Dose: 0.1 mg Documented By: JOYCE Cyclobenzaprine HCl (Cyclobenzaprine Hcl 10 Mg Tablet) 10 mg PO BEDTIME PRN PRN Reason: Muscle Spasm Duloxetine HCl (Duloxetine Hcl 20 Mg Capsule.) 40 mg PO DAILY [facility] Last Admin: 09/08/23 09:12 Dose: 40 mg Documented By: JOYCE Enoxaparin Sodium (Enoxaparin Sodium 30 Mg/0.3 Ml Syringe) 30 mg SUBCUT Q24H [facility] Last Admin: 09/07/23 21:38 Dose: 30 mg Documented By: OLGA Fluticasone/Vilanterol (Fluticasone/Vilanterol 200/25 Blst.W.Dev) 1 puff INHALE DAILY [facility] Last Admin: 09/08/23 07:43 Dose: 1 puff Documented By: AIDEN Doxycycline Hyclate 100 mg/ (Sodium Chloride) 250 mls @ 166.67 mls/hr IV BID [facility] Last Infusion: 09/08/23 10:55 Dose: Infused Documented By: JOYCE Loperamide HCl (Loperamide Hcl 2 Mg Capsule) 2 mg PO Q6H PRN PRN Reason: Diarrhea Melatonin (Melatonin 3 Mg Tablet) 6 mg PO BEDTIME PRN PRN Reason: Insomnia Montelukast Sodium (Montelukast Sodium 10 Mg Tablet) 10 mg PO BEDTIME [facility] Last Admin: 09/07/23 21:40 Dose: 10 mg Documented By: OLGA Omeprazole (Omeprazole 40 Mg Capsule.) 40 mg PO DAILY@0630 [facility] Last Admin: 09/08/23 05:56 Dose: 40 mg Documented By: OLGA Ondansetron HCl (Ondansetron Hcl 4 Mg/2 Ml Vial) 4 mg IVPUSH Q6H PRN PRN Reason: Nausea and Vomiting Last Admin: 09/05/23 14:56 Dose: 4 mg Documented By: SRI Polyethylene Glycol (Polyethylene Glycol 3350 17 Gm Powd.Pack) 17 gm PO DAILY PRN PRN Reason: Constipation Sodium Bicarbonate (Sodium Bicarbonate 650 Mg Tablet) 650 mg PO TID [facility] Last Admin: 09/08/23 09:12 Dose: 650 mg Documented By: JOYCE Sodium Chloride (0.9 % Sodium Chloride Flush 3 Ml Syringe) 3 ml IVFLUSH QSHIFT [facility] Last Admin: 09/08/23 10:34 Dose: Not Given Documented By: JOYCE Non-Admin Reason: IV Running Labs 09/06/23 05:52 09/08/23 06:26 Labs: Laboratory Results - last 24 hr 09/07/23 09/08/23 09/08/23 20:00 06:26 07:33 Anion Gap 14 Estim Creat Clear Calc 10.1 Estimated GFR 7 POC Glucose 83 Random Glucose 94 Calcium 8.1 L C. difficile Tox B Gene NEGATIVE 09/08/23 12:15 Anion Gap Estim Creat Clear Calc Estimated GFR POC Glucose 116 H Random Glucose Calcium C. difficile Tox B Gene Assessment and Plan (1) Left leg cellulitis: Status: Acute (2) Acute hypokalemia: Status: Acute (3) Cellulitis: Status: Acute Plan Pt is a 48-year-old female with a PMH significant for HTN, HLD, prediabetes, asthma fibromyalgia,?rheumatoid arthritis, GERD, and BONNIE on CPAP who presents to the ED with fever, chills, nausea, and left leg swelling and redness x6 days. Pt will be admitted to the hospital for treatment and further evaluation of left lower extremity cellulitis with sepsis. ELISA--likely ATN related to Vanco toxicity, Creatinine still trending up. She has good urine output, unfortunately not well documented Continue holding IVF giving good urine output and per nephro recommendation, and continue to monitor daily BMP and K level. Her presentation not c/w obstruction but getting renal US just to be sure Left lower extremity cellulitis with sepsis--sepsis resolved, redness nearly resolved. Vancomycin stopped due to renal failure, and changed to Clindamycin and now changed to Doxycyline per ID recommendation Hypokalemia--K is now normal, keep an eye on it Abnormal EKG, EKG showing diffuse T-wave inversions in anteriolateral and inferior leads No chest pain, repeat ECG show reveral of changes and thus likely due to low K HTN--Losartan stopped d/t ELISA Diarrhea, Cdif negative, better, imodium PRN HLD Continue statin Rheumatoid arthritis Continue leflunomide per rheum Asthma Not in acute exacerbation Continue home inhalers Mood disorder Continue mood stabilizers Full Code DVT Prophylaxis: Lovenox need for inaptient: IV Abx for cellultis involving more than 50% or left lower extremity, and ELISA needing close monitoring Quality Stroke Does the patient have a stroke diagnosis?: No VTE Prior VTE?: No VTE Risk Level:: Medical - moderate - high VTE Device Contraindication: Treatment Not Indicated VTE Drug Contraindication: N/A - Med Ordered
[2023-09-08] MEDS: 0.9 % Sodium Chloride Flush 3 ML SYRINGE IVFLUSH ×2 (16:19→19:36)
[2023-09-08] MEDS: Acetaminophen 325 MG TABLET 650 MG PO (19:35)
[2023-09-08] MEDS: Atorvastatin Calcium 40 MG TABLET PO (19:35)
[2023-09-08] MEDS: Enoxaparin Sodium 30 MG/0.3 ML SYRINGE SUBCUT (19:36)
[2023-09-08] MEDS: Montelukast Sodium 10 MG TABLET PO (19:36)
[2023-09-08] MEDS: Doxycycline Monohydrate 100 MG CAPSULE PO (19:36)
[2023-09-09] VITALS (8 sets, daily range): BP systolic 126–168; BP diastolic 68–87; PULSE 65–88; RESP 16–20; TEMP 36.3–37; O2SAT 94–99
[2023-09-09] MEDS: Omeprazole 40 MG CAPSULE.DR PO (05:58)
[2023-09-09 06:19] LABS: Anion Gap 13 (12-20); Blood Urea Nitrogen 42 mg/dL (9-16); Calcium 8.7 mg/dL (8.4-10.2); Carbon Dioxide 20 mmol/L (22-29); Chloride 114 mmol/L (96-108); Creatinine Clr Calc Pharmacy 10.6; Estimated Glomerular Filt Rate 8; Glucose Random 97 mg/dL (60-115); Potassium 3.3 mmol/L (3.3-5.1); Sodium 144 mmol/L (135-145)
[2023-09-09] MEDS: Fluticasone/Vilanterol 200/25 BLST.W.DEV 1 PUFF INHALE (07:50)
--- NOTE | 2023-09-09 08:45 | P.PNNP_ITS ---
Subjective Subjective Date of Service: 09/09/23 Interval history: F/u on celulitis of the right leg and tigh, and ELISA attributed to Vancomycin toxicity interval history: redness on leg continues to improve, and nearly all resolved unfortunately serum creatine is still high but appear to have peaked and slightly lower today. She reports that her urine output is normal or regular , I/O has not been tracked well Physical Exam 2 Vital Signs: Vital Signs: Last Vital Signs Temp 98.6 F 09/09/23 08:00 Pulse 81 09/09/23 08:00 Resp 20 09/09/23 08:00 BP 145/87 H 09/09/23 08:00 Pulse Ox 98 09/09/23 08:00 O2 Del Method Room Air 09/09/23 08:00 BMI result Body Mass Index 36.3 Const: Other: Appearance: Alert. Oriented X3. No acute distress. Eyes: Pupils equal, round and reactive to light. ENT: Pharynx normal. Neck: Normal inspection. Neck supple. No lymph nodes noted. No crepitus CVS: Normal heart rate and rhythm. Pulses normal. Normal S1 and S2 Respiratory: No respiratory distress. Breath sounds normal. No Wheezing. No rales Abdomen: Soft and nontender. No rigidity. No distention. Skin: Skin warm and dry. See extremities below Extremities: No lower extremity edema. Left lower extremity, there cellulitis around the tibial area extending upwards to the inner left thigh Neuro: Oriented X 3. No motor deficit. No sensory deficit. Moving all extremities. No slurred speech. CN 2 through 12 grossly intact Psych: calm, cooperative, normal affect Objective Data Labs 09/06/23 05:52 09/09/23 05:44 Labs: Laboratory Results - last 24 hr 09/08/23 09/09/23 12:15 05:44 Hold Purple Top SEE NOTE Sodium 144 Potassium 3.3 Chloride 114 H Carbon Dioxide 20 L Anion Gap 13 BUN 42 H Creatinine 5.98 H* Estim Creat Clear Calc 10.6 Estimated GFR 8 POC Glucose 116 H Random Glucose 97 Calcium 8.7 D Microbiology Microbiology Results: Microbiology 09/03/23 17:42 Blood - Venous Blood Culture - Final No growth after 5 days. 09/03/23 17:38 Blood - Venous Blood Culture - Final No growth after 5 days. Procedures Date of Service Date of Service: 07/05/24 Assessment & Plan Assessment and plan (1) Left leg cellulitis: Status: Acute (2) Acute hypokalemia: Status: Acute (3) Cellulitis: Status: Acute Plan 48 woman with a ELISA. ELISA is most likely due to vanco induced tubular injury. No reason to believe she is any underlying glomerular nephritis. No evidence of any obstructive uropathy Creatinine is beginning to improve No signs or symptoms of uremia. Volume status acceptable. Hypokalemia due to GI losses. Suggestions Hold vancomycin and other nephrotoxic agents. Watch urine output closely. Replace potassium as needed. No absolute indication for dialysis today. Concur with other medical management and we will follow along with the team. Time Spent With Patient Time: Total time managing care of this patient today ____ minutes. Progress Note: Quality Stroke Does the patient have a stroke diagnosis?: No
[2023-09-09] MEDS: DULoxetine HCl 20 MG CAPSULE.DR 40 MG PO (08:55)
[2023-09-09] MEDS: ARIPiprazole 20 MG TABLET PO (08:56)
[2023-09-09] MEDS: Aspirin Enteric Coated 81 MG TABLET.DR PO (08:56)
[2023-09-09] MEDS: Ascorbic Acid 500 MG TABLET PO (08:56)
[2023-09-09] MEDS: Sodium Bicarbonate 650 MG TABLET PO ×3 (08:56→20:45)
[2023-09-09] MEDS: Doxycycline Monohydrate 100 MG CAPSULE PO ×2 (08:56→20:45)
[2023-09-09] MEDS: Acetaminophen 325 MG TABLET 650 MG PO (08:56)
[2023-09-09] MEDS: cloNIDine HCL 0.1 MG TABLET PO ×2 (08:56→20:45)
[2023-09-09] MEDS: 0.9 % Sodium Chloride Flush 3 ML SYRINGE IVFLUSH ×2 (08:58→16:38)
--- NOTE | 2023-09-09 14:59 | MHC.CM.PN ---
EMR reviewed and per MD rounds, pt is not medically cleared for discharge due to management of cellulitis requiring IV abx, and ELISA.
--- NOTE | 2023-09-09 16:39 | P.PNIM_ITS ---
Subjective Subjective Date of Service: 09/10/23 Interval History: F/u on celulitis of the right leg and tigh, and ELISA attributed to Vancomycin toxicity interval history: redness on leg continues to improve. Creatine trending down slowly, has good urine output and diarrhea nearly gone Physical Exam 2 Vital Signs: Vital Signs: Last Vital Signs Temp 97.6 F 09/09/23 15:48 Pulse 65 09/09/23 15:48 Resp 16 09/09/23 15:48 BP 139/84 09/09/23 15:48 Pulse Ox 98 09/09/23 15:48 O2 Del Method Room Air 09/09/23 15:48 BMI result Body Mass Index 36.3 Const: Other: General: AO X 3, no acute distress Resp: CTA bilateral CVS: S1,S2,RRR GI: +BS, NT, no distention Skin: similar finding as yesterday Neuro: motor grossly intact Psych: appropriate affect Objective Data Active Medications Acetaminophen (Acetaminophen 325 Mg Tablet) 650 mg PO Q6H PRN PRN Reason: Pain, Mild (Pain Scale 1-3), fever or headache Last Admin: 09/09/23 08:56 Dose: 650 mg Documented By: MINA Aripiprazole (Aripiprazole 20 Mg Tablet) 20 mg PO DAILY [facility] Last Admin: 09/09/23 08:56 Dose: 20 mg Documented By: MINA Ascorbic Acid (Ascorbic Acid 500 Mg Tablet) 500 mg PO DAILY [facility] Last Admin: 09/09/23 08:56 Dose: 500 mg Documented By: MINA Aspirin (Aspirin Enteric Coated 81 Mg Tablet.) 81 mg PO DAILY [facility] Last Admin: 09/09/23 08:56 Dose: 81 mg Documented By: MINA Atorvastatin Calcium (Atorvastatin Calcium 40 Mg Tablet) 40 mg PO BEDTIME [facility] Last Admin: 09/08/23 19:35 Dose: 40 mg Documented By: VALDEZ-RIVLA Benzonatate (Benzonatate 100 Mg Capsule) 100 mg PO TID PRN PRN Reason: Cough Calcium Carbonate (Calcium Carbonate 750 Mg Tab.Chew) 750 mg PO Q4H PRN PRN Reason: Heartburn Clonidine HCl (Clonidine Hcl 0.1 Mg Tablet) 0.1 mg PO BID [facility]; Protocol Last Admin: 09/09/23 08:56 Dose: 0.1 mg Documented By: MINA Cyclobenzaprine HCl (Cyclobenzaprine Hcl 10 Mg Tablet) 10 mg PO BEDTIME PRN PRN Reason: Muscle Spasm Doxycycline Monohydrate (Doxycycline Monohydrate 100 Mg Capsule) 100 mg PO BID [facility] Last Admin: 09/09/23 08:56 Dose: 100 mg Documented By: MINA Duloxetine HCl (Duloxetine Hcl 20 Mg Capsule.) 40 mg PO DAILY [facility] Last Admin: 09/09/23 08:55 Dose: 40 mg Documented By: MINA Enoxaparin Sodium (Enoxaparin Sodium 30 Mg/0.3 Ml Syringe) 30 mg SUBCUT Q24H [facility] Last Admin: 09/08/23 19:36 Dose: 30 mg Documented By: GUALBERTO Fluticasone/Vilanterol (Fluticasone/Vilanterol 200/25 Blst.W.Dev) 1 puff INHALE DAILY [facility] Last Admin: 09/09/23 07:50 Dose: 1 puff Documented By: CLEMENTINE Loperamide HCl (Loperamide Hcl 2 Mg Capsule) 2 mg PO Q6H PRN PRN Reason: Diarrhea Melatonin (Melatonin 3 Mg Tablet) 6 mg PO BEDTIME PRN PRN Reason: Insomnia Montelukast Sodium (Montelukast Sodium 10 Mg Tablet) 10 mg PO BEDTIME [facility] Last Admin: 09/08/23 19:36 Dose: 10 mg Documented By: GUALBERTO Omeprazole (Omeprazole 40 Mg Capsule.) 40 mg PO DAILY@0630 [facility] Last Admin: 09/09/23 05:58 Dose: 40 mg Documented By: GUALBERTO Ondansetron HCl (Ondansetron Hcl 4 Mg/2 Ml Vial) 4 mg IVPUSH Q6H PRN PRN Reason: Nausea and Vomiting Last Admin: 09/05/23 14:56 Dose: 4 mg Documented By: SRI Polyethylene Glycol (Polyethylene Glycol 3350 17 Gm Powd.Pack) 17 gm PO DAILY PRN PRN Reason: Constipation Sodium Bicarbonate (Sodium Bicarbonate 650 Mg Tablet) 650 mg PO TID [facility] Last Admin: 09/09/23 16:36 Dose: 650 mg Documented By: MINA Sodium Chloride (0.9 % Sodium Chloride Flush 3 Ml Syringe) 3 ml IVFLUSH QSHIFT [facility] Last Admin: 09/09/23 16:38 Dose: 3 ml Documented By: MINA Labs 09/06/23 05:52 09/10/23 06:53 Labs: Laboratory Results - last 24 hr 09/09/23 05:44 Hold Purple Top SEE NOTE Anion Gap 13 Estim Creat Clear Calc 10.6 Estimated GFR 8 Random Glucose 97 Calcium 8.7 D Microbiology Microbiology Results: Microbiology 09/03/23 17:42 Blood Culture - Final Blood - Venous No growth after 5 days. 09/03/23 17:38 Blood Culture - Final Blood - Venous No growth after 5 days. Assessment and Plan (1) Left leg cellulitis: Status: Acute (2) Acute hypokalemia: Status: Acute (3) Cellulitis: Status: Acute Plan Pt is a 48-year-old female with a PMH significant for HTN, HLD, prediabetes, asthma fibromyalgia,?rheumatoid arthritis, GERD, and BONNIE on CPAP who presents to the ED with fever, chills, nausea, and left leg swelling and redness x6 days. Pt will be admitted to the hospital for treatment and further evaluation of left lower extremity cellulitis with sepsis. ELISA--likely ATN related to Vanco toxicity, Creatinine still trending up. She has good urine output, unfortunately not well documented Continue holding IVF giving good urine output and per nephro recommendation, and continue to monitor daily BMP and K level, Creatine slowly trending down. US normal kidney Left lower extremity cellulitis with sepsis--sepsis resolved, redness nearly resolved. Vancomycin stopped due to renal failure, and changed to Clindamycin and now changed to Doxycyline per ID recommendation Hypokalemia--K is now normal, keep an eye on it Abnormal EKG, EKG showing diffuse T-wave inversions in anteriolateral and inferior leads No chest pain, repeat ECG show reveral of changes and thus likely due to low K HTN--Losartan stopped d/t ELISA, BP within normal Diarrhea, now minimal. Cdif negative, better, imodium PRN HLD Continue statin Rheumatoid arthritis--holding leflulomidfe given acute illness, immunocompromised state Asthma Not in acute exacerbation Continue home inhalers Mood disorder Continue mood stabilizers Full Code DVT Prophylaxis: Lovenox need for inaptient: IV Abx for cellultis involving more than 50% or left lower extremity, and ELISA needing close monitoring Quality Stroke Does the patient have a stroke diagnosis?: No VTE Prior VTE?: No VTE Risk Level:: Medical - moderate - high VTE Device Contraindication: Treatment Not Indicated VTE Drug Contraindication: N/A - Med Ordered
[2023-09-09] MEDS: Enoxaparin Sodium 30 MG/0.3 ML SYRINGE SUBCUT (20:41)
[2023-09-09] MEDS: Atorvastatin Calcium 40 MG TABLET PO (20:45)
[2023-09-09] MEDS: Montelukast Sodium 10 MG TABLET PO (20:45)
[2023-09-10 00:42] VITALS: PULSE 78; RESP 18; O2SAT 98
[2023-09-10 03:21] VITALS: BP 130/62; PULSE 65; RESP 18; TEMP 36.6; O2SAT 98
[2023-09-10] MEDS: Omeprazole 40 MG CAPSULE.DR PO (07:03)
[2023-09-10 07:52] VITALS: BP 154/71; PULSE 75; RESP 18; TEMP 36.6; O2SAT 97
[2023-09-10 08:04] LABS: Anion Gap 13 (12-20); Blood Urea Nitrogen 42 mg/dL (9-16); Calcium 8.7 mg/dL (8.4-10.2); Carbon Dioxide 22 mmol/L (22-29); Chloride 114 mmol/L (96-108); Estimated Glomerular Filt Rate 10; Glucose Random 92 mg/dL (60-115); Potassium 3.1 mmol/L (3.3-5.1); Sodium 146 mmol/L (135-145)
[2023-09-10] MEDS: DULoxetine HCl 20 MG CAPSULE.DR 40 MG PO (08:22)
[2023-09-10] MEDS: cloNIDine HCL 0.1 MG TABLET PO (08:23)
[2023-09-10] MEDS: Ascorbic Acid 500 MG TABLET PO (08:23)
[2023-09-10] MEDS: Aspirin Enteric Coated 81 MG TABLET.DR PO (08:23)
[2023-09-10] MEDS: ARIPiprazole 20 MG TABLET PO (08:23)
[2023-09-10] MEDS: Sodium Bicarbonate 650 MG TABLET PO (08:23)
[2023-09-10] MEDS: Doxycycline Monohydrate 100 MG CAPSULE PO (08:23)
[2023-09-10] MEDS: 0.9 % Sodium Chloride Flush 3 ML SYRINGE IVFLUSH (08:25)
[2023-09-10] MEDS: Potassium Chloride ER 20 MEQ TAB.ER.PRT 40 MEQ PO (08:27)
[2023-09-10 08:29] LABS: Magnesium 1.9 mg/dL (1.6-2.6)
[2023-09-10] MEDS: Fluticasone/Vilanterol 200/25 BLST.W.DEV 1 PUFF INHALE (08:33)
[2023-09-10 08:35] VITALS: PULSE 81; RESP 18; O2SAT 99
--- NOTE | 2023-09-10 11:34 | PM.DS ---
DS: Providers Provider Date of Service: 09/10/23 Date of admission: 09/03/23 19:18 Primary care physician: Kay Pedersen MD Consults: 09/04/23 18:17 Consult to Nephrology Routine Consulting Provider: [facility] Reason for consultation: Vanco toxicity 09/07/23 13:24 Consult to Infectious Diseases Routine Consulting Provider: [facility] Reason for consultation: cellulitis of the leg Has provider been notified: Yes DS: Diagnosis Discharge Diagnosis (1) Left leg cellulitis: Status: Acute (2) Acute hypokalemia: Status: Acute (3) Cellulitis: Status: Acute DS: Summary Hospital Course Hospital Course: admission hpi Attending physician on admission: Radha Woo Chief Complaint: Left foot and leg redness and swelling Pt is a 48-year-old female with a PMH significant for HTN, HLD, prediabetes, asthma fibromyalgia,?rheumatoid arthritis, GERD, and BONNIE on CPAP who presents to the ED with fever, chills, nausea, and left leg swelling and redness x6 days. Patient reports that on Tuesday felt ?sick? with fever, chills, nausea, vomiting, and diarrhea. On Tuesday she noticed her right lower leg began swelling and turning red. Symptoms continue to worsen throughout the week until she sought further evaluation at the ED today. Has been unable to tolerate eating or drinking much during this time. Denies trauma to the area. No history of IVDU. Denies abdominal pain. Also has been experiencing intermittent sharp and stabbing chest pain that last a couple seconds at a time. Denies palpitations or feeling like her heart is racing. No shortness a breath or difficulty breathing. No cough. In the ED pt was febrile up to 102.2, tachycardic up to 107, and mildly hypertensive at 148/79. Labs were significant for leukocytosis of 13.2, potassium 2.4, chloride 94, AST 64, ALT 56, ESR 73, and CRP 21.53. Lactic acid WNL at 1.3. Tested negative for flu, RSV, COVID. X-ray of left tibia and fibula show no osseous changes to suggest osteomyelitis. EKG demonstrated sinus tachycardia 106 with diffuse T-wave inversions in anteriolateral and and inferior leads. Pt was treated with IVF, Zosyn, and potassium chloride 80 mEq p.o.. Pt will be admitted to the hospital for treatment and further evaluation of left lower extremity cellulitis with sepsis. Hospial course: Patient presented with left leg and tigh redness that has been ongoing nearly a week and work up in the ED revealed a cellulitis involing the leg and tight as prictured in H and P, She met sepsis criteria with with elevated WBC and tachycadia and fever, lactic acid was normal, ESR and CRP were elevated as well. Her history of Rheumatoid arthritis on Leflulominde put her at risk of immunocompromised state. Further labs iclude low potassium level of 2.2. She was initiated on IV Vancomycin and seems to respond with improving erythema the following day, unfortunately the next day also her serum creatine jump to 1.75 on 10/03 from 0.77 the prior day, the rise in Scr corresponds with a toxic Vancomhycin level of 26. 6 on 09/03. Losartan was stopped, Vancomycin was stopped and patient was started on Clindamyin to treat the cellulitis which continued to improve. Unfortunately, serum creatine continued to rise as below She was initiated on IV fluid, and nephrology consultation was requested. Fortunately, she maintained a good urine output. Serum creatine peaked at 6.32 on 09/06, IV fluid was stopped, and the next day as above serum creatine started trended down and continued to do so as the pattern above and there is a high probably of full recover the coming days. She will have follow up labs on outpatient basis As for the sepsis and cellulitis, the erythema has nearly resolved. She was evaluaed by ID and was later swithced from Clindamycin to Doxycline with recommendation to finish a 1 week course. Hypokalemia--likely related to diarrhea, initially.. Was replaced with IV and PO, K is now 3.1 and given PO, Mag level is normal. Outpatient follow up labs Diarrhea, maybe relaed to antibiotis.. C dif was negative, now resolved Metabolic acidosis--related to renal failure, was given oral bicab replacement. Bicab is now normal and will stop Hypokalemia--K is now normal, keep an eye on it Abnormal EKG, EKG showing diffuse T-wave inversions in anteriolateral and inferior leads No chest pain, repeat ECG show reversal of changes and thus likely due to low K HTN--Losartan stopped due to ELISA, Norvasc 5 mg added. 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 Time Attestation Discharge Coordination Time (in mins): 50 Quality: Safe Use of Opioids Does Pt have an Active Cancer Diagnosis on the Problem List?: No Quality: Stroke Does the patient have a stroke diagnosis?: No Physical Exam Vital Signs: Vital Signs: Last Vital Signs Temp 97.9 F 09/10/23 07:52 Pulse 81 09/10/23 08:35 Resp 18 09/10/23 08:35 BP 154/71 H 09/10/23 07:52 Pulse Ox 97 09/10/23 07:52 O2 Del Method Room Air 09/10/23 07:52 BMI result Body Mass Index 36.3 DS: Data Data Completed and Pending Labs on day of discharge: Laboratory Results - last 24 hr 09/10/23 06:53 Hold Purple Top SEE NOTE Sodium 146 H Potassium 3.1 L Chloride 114 H Carbon Dioxide 22 Anion Gap 13 BUN 42 H Creatinine 4.53 H* Estim Creat Clear Calc 14.0 Estimated GFR 10 Random Glucose 92 Calcium 8.7 Magnesium 1.9 Discharge Plan Discharge Anticipated Discharge Date/Time: 09/10/23 11:21 Patient Disposition: Home, Self-Care Discharge Diagnosis: Cellulitis of left lower extremity, Elisa, Vancomycin toxicyt, hypokalemia, metabolic acidosis, diarrha Referrals: Garrett Gilbert MD [Physician] - 1 Week Kay Pedersen MD [Primary Care Provider] - 1 Week Discharge Medications: New doxycycline monohydrate 100 mg Capsule 100 mg PO BID Qty: 8 0RF amlodipine 5 mg Tablet 5 mg PO DAILY Qty: 90 0RF Protocol: Hold for SBP< HOLD for SBP < : 90 Continued aripiprazole 20 mg tablet 20 mg PO DAILY duloxetine 20 mg capsule,delayed release(DR/EC) 40 mg PO DAILY omeprazole 20 mg capsule,delayed release(DR/EC) 40 mg PO DAILY@0630 acetaminophen [Tylenol] 325 mg Tablet 650 mg PO Q6H PRN (Reason: Pain) ascorbic acid (vitamin C) [Vitamin C] 500 mg tablet 500 mg PO DAILY montelukast [Singulair] 10 mg tablet 10 mg PO BEDTIME clonidine HCl 0.1 mg tablet 0.1 mg PO BID aspirin 81 mg tablet,delayed release (DR/EC) 81 mg PO DAILY atorvastatin 40 mg tablet 40 mg PO BEDTIME budesonide-formoterol [Symbicort] 160-4.5 mcg/actuation HFA aerosol inhaler 2 puff inhalation BID cyclobenzaprine 10 mg tablet 10 mg PO BEDTIME PRN (Reason: Muscle Spasm) Held leflunomide 20 mg tablet 20 mg PO DAILY Hold Instructions: Resume on 09/19/23. Please check with your press hand supervisor about when to restart this Discontinued losartan 25 mg tablet 25 mg PO DAILY Discharge Orders: Discharge Order (Routine); Ordered 09/10/23 Ordered By: Allen Vasquez Diet: Advance to usual diet Activity on Discharge: As tolerated Stand Alone Forms: Patient Portal Discharge page Print Language: Vietnamese Other Ambulatory Orders: Basic Metabolic Panel (Routine) Timeframe: [id number] Facility: [facility] - Location: Laboratory Ordered By: Allen Vasquez Care Plan Goals: Full recovery from cellulitis (infection) of left leg and tigh returning of kidney function to normal resoluition of low potassium Health Concerns: Acute Kidney failure Vancomycin toxicity Hypokalemia, metabolic acidosis diarrhea, resolved Plan of Treatment: Take Doxycyline for 4 more day to complete antibiotics treatment for cellulitis (infection of the leg Do not take Losartan unless it is ok by your kidney doctor You will have labs done next to make sure your kidney continues to improve Do not take over the counter pain medications called NSAID such as Motrin, Naproxen, check with with your pharmacist before getting any you Will follow up with the kidney Doctor (office will call you) Follow up with your Doctor in a 1 week, call tuesday for appointment Call your press hand supervisor and inform them that you were sick in the hospital and Leflunomide has been on hold and when can you restart taking it--You should not take Leflunomide until you talk to your press hand supervisor, call on Tuesday Take Norvasc 5 mg daily for blood pressure in place of Losartan Assessment: see above Discharge Date/Time: 09/10/23 15:10
[2023-09-10 11:37] VITALS: BP 168/81; PULSE 65; RESP 18; TEMP 36.6; O2SAT 98
[2023-09-10 12:18] LABS: Alanine Aminotransferase 18 U/L (0-31); Albumin Level 2.9 g/dL (3.5-5.0); Alkaline Phosphatase 83 U/L (39-117); Aspartate Amino Transferase 23 U/L (5-31); Bilirubin Direct 0.2 mg/dL (0.0-0.5); Bilirubin Total 0.4 mg/dL (0.0-1.0)
[2023-09-10] MEDS: amLODIPine Besylate 5 MG TABLET PO (12:19)
--- NOTE | 2023-09-10 13:23 | MHC.CM.PN ---
Pt has been medically cleared for DC, she will go home via private transport, DCP: home, self care.
[2023-09-10 14:39] VITALS: BP 142/86
== END 2023-09-10 15:10 | disposition home or self-care (01) | DRG 720 ==
LOC: HO.ED 17:39 → HO.EDOVER 19:21 → HO.IMC 19:33
PROVIDERS: Physician Assistant Medical; Admitting Provider Student in an Organized Health Care Education/Training Program; Emergency Provider Emergency Medicine; PCP Family Medicine; Referring Provider Family Medicine; Visit Provider Internal Medicine
DX: A41.9 Sepsis, unspecified organism (principal); N17.0 Acute kidney failure with tubular necrosis; L03.116 Cellulitis of left lower limb; E66.9 Obesity, unspecified; I10 Essential (primary) hypertension; M05.9 Rheumatoid arthritis with rheumatoid factor, unspecified; M79.7 Fibromyalgia; R73.03 Prediabetes; F39 Unspecified mood [affective] disorder; D84.821 Immunodeficiency due to drugs; G47.33 Obstructive sleep apnea (adult) (pediatric); K21.9 Gastro-esophageal reflux disease without esophagitis; T36.8X5A Adverse effect of other systemic antibiotics, initial encounter; E78.5 Hyperlipidemia, unspecified; E87.6 Hypokalemia; J45.20 Mild intermittent asthma, uncomplicated; Z20.822 Contact with and (suspected) exposure to COVID-19; Z68.36 Body mass index [BMI] 36.0-36.9, adult; Z79.82 Long term (current) use of aspirin; Z79.631 Long term (current) use of antimetabolite agent; Z79.899 Other long term (current) drug therapy
CPT/HCPCS: 0241U; 36415; 73590; 76775; 80048; 80051; 80053; 80076; 80202; 82947; 83605; 83690; 83735; 84484; 85025; 85027; 85652; 86140; 87040; 87493; 93005; 94660; 99285; J0736; J1650; J2405; J2543; J3370; J3480; J7120

== ENCOUNTER → 2023-09-03 16:17 | Outpatient (BNV) | payer MEDICAID, SELFPAY | PROVIDERS: Admitting Provider Student in an Organized Health Care Education/Training Program; Emergency Provider Emergency Medicine; PCP Family Medicine; Visit Provider Internal Medicine Cardiovascular Disease | DX: R00.0 Tachycardia, unspecified (principal); E87.6 Hypokalemia; R94.31 Abnormal electrocardiogram [ECG] [EKG] | CPT/HCPCS: 93010 ==

== ENCOUNTER 2023-09-03 19:18 | Outpatient (BNV) | payer MEDICAID, SELFPAY | END 2023-09-05 14:24 | PROVIDERS: Admitting Provider Student in an Organized Health Care Education/Training Program; Emergency Provider Emergency Medicine; PCP Family Medicine; Visit Provider Internal Medicine | DX: R94.31 Abnormal electrocardiogram [ECG] [EKG] (principal); I49.3 Ventricular premature depolarization | CPT/HCPCS: 93010 ==

== ENCOUNTER → 2023-09-03 19:18 | Outpatient (BNV) | payer MEDICAID, SELFPAY | PROVIDERS: Admitting Provider Student in an Organized Health Care Education/Training Program; Emergency Provider Emergency Medicine; PCP Family Medicine; Visit Provider Internal Medicine Hypertension Specialist | DX: N17.9 Acute kidney failure, unspecified (principal); E87.6 Hypokalemia | CPT/HCPCS: 99223; 99232; 99499 ==

== ENCOUNTER → 2023-09-03 19:18 | Outpatient (BNV) | payer MEDICAID, SELFPAY | PROVIDERS: Admitting Provider Student in an Organized Health Care Education/Training Program; Emergency Provider Emergency Medicine; PCP Family Medicine; Referring Provider Family Medicine; Visit Provider Internal Medicine | DX: L03.116 Cellulitis of left lower limb (principal); N17.9 Acute kidney failure, unspecified | CPT/HCPCS: 99499 ==

== ENCOUNTER → 2023-09-03 19:18 | Outpatient (BNV) | payer MEDICAID, SELFPAY | PROVIDERS: Admitting Provider Student in an Organized Health Care Education/Training Program; Emergency Provider Emergency Medicine; PCP Family Medicine; Visit Provider Student in an Organized Health Care Education/Training Program | DX: L03.116 Cellulitis of left lower limb (principal); E87.6 Hypokalemia; L03.90 Cellulitis, unspecified | CPT/HCPCS: 99223; 99232; 99233; 99239; 99499 ==

== ENCOUNTER 2023-09-16 11:33 | Outpatient (AMB) | payer MEDICAID, SELFPAY ==
--- NOTE | 2023-09-16 11:35 | HO.NEPHOV ---
Vital Signs 09/16/23 11:36 Height 4 ft 11 in Weight 180 lb BMI 36.4 BP 148/78 H Blood Pressure Location Rt brachial Position Sitting Pulse 86 Pulse Source Pulse Oximeter Pulse Oximetry (%) 95 Oxygen Delivery Method Room Air Intake Visit Reasons: [facility] [place] follow up/ Conf Securities Adviser Required: No Accompanied by: Daughter Allergies penicillin G [PENICILLIN G] Allergy (Severe, Verified 09/16/23 11:39) DIZZINESS tramadol Allergy (Severe, Verified 09/16/23 11:39) Vomiting and sweats HPI Comments Details: Pleasant middle-aged woman with a history of hypertension was recently seen during hospitalization for ELISA. She had cellulitis of the legs. She was treated with vancomycin. Subsequently developed acute kidney injury due to vanco toxicity. Vanco level was 30. The serum creatinine peaked at 6. At the time of discharge creatinine was down to 4.5. She has been nonoliguric. No signs or symptoms of uremia. Overall she is feeling better. Currently he is on amlodipine for control blood pressure. 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 Mother History of high blood pressure Social History Household Members: None Housing: Apartment Do you presently have visiting nurse or other home services: No Alcohol intake: current Alcohol intake frequency: holidays/special occasions only Alcohol type: beer and wine Patient Tobacco Use Status: Former Tobacco user Tobacco use type: Cigarette e-Cigarette/Vaping Use: Never Used Substance Use Type: Marijuana service: No Current occupational status: disabled Review of Systems Const Denies fever(s) and Denies weight loss Card Denies chest pain Resp Denies cough and Denies hemoptysis GI Denies abdominal pain, Denies diarrhea and Denies nausea Musc Denies back pain Neuro Denies focal weakness Physical Exam Vital Signs: Last Vital Signs Pulse 86 09/16/23 11:36 BP 148/78 H 09/16/23 11:36 Pulse Ox 95 09/16/23 11:36 Oxygen Delivery Method Room Air 09/16/23 11:36 BMI result Body Mass Index 36.4 Results Reviewed Nephrology Results: Hgb 10.3 g/dl (12.0-16.0) L 09/06/23 WBC 12.6 X10*3/uL (4.8-10.8) H 09/06/23 Plt Count 296 X10*3/uL (160-400) 09/06/23 Sodium 146 mmol/L (135-145) H 09/10/23 Potassium 3.1 mmol/L (3.3-5.1) L 09/10/23 Chloride 114 mmol/L (96-108) H 09/10/23 Carbon Dioxide 22 mmol/L (22-29) 09/10/23 BUN 42 mg/dL (9-16) H 09/10/23 Creatinine 4.53 mg/dL (0.5-1.4) H* 09/10/23 Calcium 8.7 mg/dL (8.4-10.2) 09/10/23 Renal US 09/09/23 Assessment & Plan Assessment & Plan (1) ELISA (acute kidney injury): Code(s): N17.9 - Acute kidney failure, unspecified Category: Medical Plan ELISA due to vanco toxicity. Vanco induced tubular injury is gradually improving. Serum creatinine is trending down. No signs or symptoms of uremia. Fluid status seems acceptable. I will recheck the renal panel today. The meantime encouraged her to increase her fluid intake and continue to avoid nephrotoxic agents including NSAIDs. Hypertension continue with amlodipine she is stay on low-sodium diet watch blood pressure for now. Orders: Orders Complete Blood Count Auto Diff Today N17.9 - Acute kidney failure, unspecified Basic Metabolic Panel Today N17.9 - Acute kidney failure, unspecified Coding Level of Care Code Est Pt Level 4 (39732) Diagnoses ELISA (acute kidney injury) N17.9
[2023-09-16 11:36] VITALS: BP 148/78; PULSE 86; O2SAT 95; BMI 36.4
== END 2023-09-16 11:48 | disposition home or self-care (01) ==
PROVIDERS: PCP Family Medicine; Visit Provider Internal Medicine Hypertension Specialist
DX: N17.9 Acute kidney failure, unspecified (principal)
CPT/HCPCS: 99214

== ENCOUNTER → 2023-09-16 11:33 | Outpatient (BNVA) | payer MEDICAID, SELFPAY | PROVIDERS: PCP Family Medicine; Visit Provider Internal Medicine Hypertension Specialist | DX: N17.9 Acute kidney failure, unspecified (principal) | CPT/HCPCS: 99212 ==

== ENCOUNTER 2023-09-16 11:56 | Outpatient (REF) | payer MEDICAID, SELFPAY ==
[2023-09-16 13:30] LABS: MANUAL DIFF FLAG NO
[2023-09-16 13:38] LABS: Basophils Absolute Auto 0.1 X10*3/uL (0.0-0.2); Basophils Percent Auto 1.1 % (0-2); Eosinophils Absolute Auto 0.1 X10*3/uL (0.0-0.4); Eosinophils Percent Auto 1.1 % (0-4); Hematocrit 34.2 % (37.0-47.0); Hemoglobin 10.9 g/dl (12.0-16.0); Imm Gran Abs Auto 0.04 X10*3/uL (0.00-0.03); Imm Gran Pct Auto 0.4 % (0.0-0.4); Lymphocytes Absolute Auto 2.4 X10*3/uL (1.2-4.9); Mean Corpuscular HGB Conc 31.9 g/dl (31.0-35.0); Mean Corpuscular Hemoglobin 27.7 pg (27.0-33.0); Mean Platelet Volume 10.2 fL (9.4-12.3); Monocytes Absolute Auto 0.5 X10*3/uL (0.1-1.2); Monocytes Percent Auto 4.8 % (2-11); Neutrophils Absolute Auto 6.8 x10*3/uL (2.0-8.3); Neutrophils Percent Auto 68.6 % (45-73); Platelet Count 390 X10*3/uL (160-400); Red Blood Count 3.93 X10*6/uL (4.20-5.50); Red Cell Distribution Width 13.5 % (11.0-16.0)
[2023-09-16 14:19] LABS: Anion Gap 18 (12-20); Blood Urea Nitrogen 18 mg/dL (9-16); Calcium 8.4 mg/dL (8.4-10.2); Carbon Dioxide 30 mmol/L (22-29); Chloride 101 mmol/L (96-108); Estimated Glomerular Filt Rate 38; Glucose Random 128 mg/dL (60-115); Potassium 2.8 mmol/L (3.3-5.1); Sodium 146 mmol/L (135-145)
== END 2023-09-16 11:57 | disposition home or self-care (01) ==
LOC: HO.10HDL 11:56
PROVIDERS: Visit Provider Internal Medicine Hypertension Specialist
DX: N17.9 Acute kidney failure, unspecified (principal)
CPT/HCPCS: 36415; 80048; 85025; 99212

== ENCOUNTER 2023-10-05 15:16 | Outpatient (REF) | payer MEDICAID, SELFPAY ==
[2023-10-05 16:48] LABS: Anion Gap 12 (12-20); Blood Urea Nitrogen 7 mg/dL (9-16); Calcium 10.2 mg/dL (8.4-10.2); Carbon Dioxide 29 mmol/L (22-29); Chloride 106 mmol/L (96-108); Estimated Glomerular Filt Rate > 60; Glucose Random 104 mg/dL (60-115); Potassium 3.5 mmol/L (3.3-5.1); Sodium 143 mmol/L (135-145)
[2023-10-05 16:50] LABS: Estimated Average Glucose 123 mg/dL; Hemoglobin A1c % 5.9 % (<6.0)
== END 2023-10-05 15:17 | disposition home or self-care (01) ==
LOC: HO.HHCL 15:16
PROVIDERS: Family Medicine; Visit Provider Nurse Practitioner Primary Care
DX: I10 Essential (primary) hypertension (principal); R73.03 Prediabetes
CPT/HCPCS: 36415; 80048; 83036

== ENCOUNTER 2023-10-26 14:56 | Outpatient (REF) | payer MEDICAID, SELFPAY ==
[2023-10-26 17:15] LABS: Anion Gap 13 (12-20); Blood Urea Nitrogen 12 mg/dL (9-16); Calcium 9.9 mg/dL (8.4-10.2); Carbon Dioxide 26 mmol/L (22-29); Chloride 108 mmol/L (96-108); Estimated Glomerular Filt Rate > 60; Glucose Random 160 mg/dL (60-115); Sodium 144 mmol/L (135-145)
== END 2023-10-26 14:57 | disposition home or self-care (01) ==
LOC: HO.HHCL 14:56
PROVIDERS: Visit Provider Family Medicine
DX: I10 Essential (primary) hypertension (principal)
CPT/HCPCS: 36415; 80048

== ENCOUNTER 2023-10-27 12:21 | Outpatient (REF) | payer MEDICAID, SELFPAY ==
[2023-10-27 13:49] LABS: Magnesium 1.7 mg/dL (1.6-2.6); Phosphorus 2.7 mg/dL (2.7-4.5); Potassium 3.1 mmol/L (3.3-5.1)
[2023-11-04 12:19] LABS: Renin 3.82 ng/mL/h (0.25-5.82)
== END 2023-10-27 12:22 | disposition home or self-care (01) ==
LOC: HO.HHCL 12:21
PROVIDERS: Visit Provider Family Medicine
DX: E87.6 Hypokalemia (principal); I10 Essential (primary) hypertension
CPT/HCPCS: 36415; 82088; 83735; 84100; 84132; 84244

== ENCOUNTER 2023-11-01 13:20 | Outpatient (REF) | payer MEDICAID, SELFPAY ==
[2023-11-01 20:40] LABS: Anion Gap 15 (12-20); Blood Urea Nitrogen 10 mg/dL (9-16); Calcium 10.1 mg/dL (8.4-10.2); Carbon Dioxide 24 mmol/L (22-29); Chloride 106 mmol/L (96-108); Estimated Glomerular Filt Rate > 60; Glucose Random 164 mg/dL (60-115); Potassium 3.2 mmol/L (3.3-5.1); Sodium 142 mmol/L (135-145)
== END 2023-11-01 13:21 | disposition home or self-care (01) ==
LOC: HO.HHCL 13:20
PROVIDERS: Visit Provider Family Medicine
DX: E87.6 Hypokalemia (principal); M05.9 Rheumatoid arthritis with rheumatoid factor, unspecified
CPT/HCPCS: 36415; 80048; 99212

== ENCOUNTER 2023-11-01 14:37 | Outpatient (AMB) | payer MEDICAID, SELFPAY ==
--- NOTE | 2023-11-01 14:39 | MHC.OFFVIS ---
Vital Signs 11/01/23 14:44 Height 4 ft 11 in Weight 174 lb 9.698 oz BMI 35.3 BP 142/80 H Blood Pressure Location Rt brachial Position Sitting Pulse 106 H Pulse Source Pulse Oximeter Pulse Oximetry (%) 96 Oxygen Delivery Method Room Air Intake Visit Reasons: RA Intake Note: Patient presents for RA. Area Development Manager Required: Yes Area Development Manager Language: Volleyball Assembler Services: Area Development Manager Present Area Development Manager Name: Andrzej [id number] Information Interpreted: non-clinical & clinical Allergies penicillin G [PENICILLIN G] Allergy (Severe, Verified 11/01/23 14:43) DIZZINESS tramadol Allergy (Severe, Verified 11/01/23 14:43) Vomiting and sweats Medication List - Last Reconciled 11/01/23 by Tere Obregon MD acetaminophen (Tylenol) 650 mg PO Q6H PRN amlodipine 5 mg See Protocol PO DAILY potassium chloride ER 20 mEq PO BID HPI Comments Details: This is a 48-year-old female with seropositive RA who presents for follow-up. After last visit her leflunomide was increased to 20 mg daily by Samantha Sanchez. Last month patient was admitted with cellulitis of her left leg. She was treated with vancomycin, she developed vancomycin induced nephrotoxicity, vancomycin was switched to another antibiotic. Her cellulitis resolved and she was discharged from the hospital. On follow-up her renal function went back to normal. Since her admission her leflunomide has been discontinued. She states that she gets minor pain in her hips now that she is off leflunomide [facility] Medical History (Updated 11/01/23 @ 15:11 by Tere Obregon MD) Thoracic degenerative disc disease Back pain Asthma Fibromyalgia Sleep apnea Seropositive rheumatoid arthritis Irritable bowel Arthritis Diarrhea Acid reflux Surgical History History of esophagogastroduodenoscopy (EGD) History of laparoscopic cholecystectomy Hx of tubal ligation History of partial hysterectomy Hx of endoscopy History of colonoscopy Family History Father No problems noted. Mother History of high blood pressure Social History Household Members: None Housing: Apartment Do you presently have visiting nurse or other home services: No Alcohol intake: current Alcohol intake frequency: holidays/special occasions only Alcohol type: beer and wine Patient Tobacco Use Status: Former Tobacco user Tobacco use type: Cigarette e-Cigarette/Vaping Use: Never Used Substance Use Type: Marijuana service: No Current occupational status: disabled Review of Systems [facility] Reports arthralgias and Denies joint swelling Physical Exam Vital Signs: Last Vital Signs Pulse 106 H 11/01/23 14:44 BP 142/80 H 11/01/23 14:44 Pulse Ox 96 11/01/23 14:44 Oxygen Delivery Method Room Air 11/01/23 14:44 BMI result Body Mass Index 35.3 Const General: cooperative, healthy appearing and comfortable Nutritional Appearance: obese Orientation/consciousness: patient oriented x3 Limitations: no limitations HEENT Head: Yes normocephalic and Yes atraumatic Mouth: moist mucous membranes Resp Effort & Inspection: normal respiratory effort and able to speak in complete sentences Auscultation: wheezes Cardio Rate: regular rate Rhythm: regular rhythm Skin General skin exam: no rashes or lesions noted Neuro General: patient oriented x3 Extrem Other: Minimal left wrist tenderness and pain with full flexion No active synovitis otherwise Assessment & Plan Assessment & Plan (1) Seropositive rheumatoid arthritis: Comment: +RF -ve CCP dx 10/2017 Methotrexate: Both oral and subcutaneous-GI upset Leflunomide: May 2020- off for a period of time due to running out of medication then restarted May 2021-present Code(s): M05.9 - Rheumatoid arthritis with rheumatoid factor, unspecified Category: Medical Plan: This is a 48-year-old female with seropositive RA who presents for follow-up. Patient was doing fairly well on leflunomide 10 mg daily, her dose was increased to 20 mg daily by Samantha Sanchez last visit. She was admitted to the hospital with left leg cellulitis last month and her leflunomide has been held since, she also developed vancomycin induced nephrotoxicity that resolved now. She is not on any DMARDs now. On exam she has mild left wrist synovitis. 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 Panel 3 Months M05.9 - Rheumatoid arthritis with rheumatoid factor, unspecified Erythrocyte Sedimentation Rate 3 Months M05.9 - Rheumatoid arthritis with rheumatoid factor, unspecified Hepatitis A,B,C Profile 3 Months Z11.59 - Encounter for screening for other viral diseases Medications: New leflunomide 10 mg PO DAILY 90 tabs 0RF Coding Level of Care Code Est Pt Level 4 (42965) Diagnoses Seropositive rheumatoid arthritis M05.9 [facility] use of drug Z79.899
[2023-11-01 14:44] VITALS: BP 142/80; PULSE 106; O2SAT 96; BMI 35.3
== END 2023-11-01 15:05 | disposition home or self-care (01) ==
PROVIDERS: PCP Family Medicine; Referring Provider Family Medicine; Visit Provider Student in an Organized Health Care Education/Training Program
DX: M05.79 Rheumatoid arthritis with rheumatoid factor of multiple sites without organ or systems involvement (principal); Z79.899 Other long term (current) drug therapy
CPT/HCPCS: 99214

== ENCOUNTER 2023-11-09 12:29 | Outpatient (REF) | payer MEDICAID, SELFPAY ==
[2023-11-09 13:19] LABS: MANUAL DIFF FLAG NO
[2023-11-09 13:34] LABS: Basophils Absolute Auto 0.1 X10*3/uL (0.0-0.2); Basophils Percent Auto 1.1 % (0-2); Eosinophils Absolute Auto 0.5 X10*3/uL (0.0-0.4); Eosinophils Percent Auto 5.2 % (0-4); Hematocrit 46.2 % (37.0-47.0); Hemoglobin 14.6 g/dl (12.0-16.0); Imm Gran Abs Auto 0.03 X10*3/uL (0.00-0.03); Imm Gran Pct Auto 0.3 % (0.0-0.4); Lymphocytes Absolute Auto 2.2 X10*3/uL (1.2-4.9); Lymphocytes Percent Auto 24.9 % (20-40); Mean Corpuscular HGB Conc 31.6 g/dl (31.0-35.0); Mean Corpuscular Hemoglobin 27.4 pg (27.0-33.0); Mean Corpuscular Volume 86.7 fL (80.0-98.0); Monocytes Absolute Auto 0.5 X10*3/uL (0.1-1.2); Monocytes Percent Auto 5.4 % (2-11); Neutrophils Absolute Auto 5.6 x10*3/uL (2.0-8.3); Neutrophils Percent Auto 63.1 % (45-73); Platelet Count 304 X10*3/uL (160-400); Red Blood Count 5.33 X10*6/uL (4.20-5.50); Red Cell Distribution Width 13.2 % (11.0-16.0); White Blood Count 8.9 X10*3/uL (4.8-10.8)
[2023-11-09 13:47] LABS: Alanine Aminotransferase 21 U/L (0-31); Albumin Level 4.3 g/dL (3.5-5.0); Alkaline Phosphatase 132 U/L (39-117); Anion Gap 14 (12-20); Aspartate Amino Transferase 19 U/L (5-31); Bilirubin Total 0.4 mg/dL (0.0-1.0); Blood Urea Nitrogen 9 mg/dL (9-16); C Reactive Protein 0.59 mg/dL (< or = 0.50); Carbon Dioxide 25 mmol/L (22-29); Chloride 107 mmol/L (96-108); Estimated Glomerular Filt Rate > 60; Glucose Random 152 mg/dL (60-115); Potassium 3.4 mmol/L (3.3-5.1); Sodium 143 mmol/L (135-145); Total Protein 7.5 g/dL (6.5-8.0)
[2023-11-09 14:01] LABS: HBS Num1 1.03 mIU/mL (0-7.99); HBc Num1 0.41 S/CO (0.00-0.79); HBsAGNum1 0.22 S/CO (0.00-0.99); Hepatitis A Antibody IgM 0.27 Index (0-0.79); Hepatitis B Core Antibody Nonreactive (Nonreactive); Hepatitis B Surface Antigen Negative (Negative); ~Hepatitis A Antibody IgM Nonreactive (Nonreactive); ~Hepatitis B Surface Antibody NONREACTIVE (Nonreactive); ~Hepatitis C Antibody Nonreactive (Nonreactive)
[2023-11-09 14:46] LABS: Erythrocyte Sedimentation Rate 18 MM/HR (0-20)
[2023-11-12 11:32] LABS: TS Negative Control Passed; TS Panel A 0; TS Panel B 0; TS Positive Control Passed; TSpotTB Negative (Negative)
== END 2023-11-09 12:30 | disposition home or self-care (01) ==
LOC: HO.HHCL 12:29
PROVIDERS: Student in an Organized Health Care Education/Training Program; Referring Provider Family Medicine; Visit Provider Emergency Medicine
DX: M05.9 Rheumatoid arthritis with rheumatoid factor, unspecified (principal); E87.6 Hypokalemia; Z11.7 Encounter for testing for latent tuberculosis infection; Z11.59 Encounter for screening for other viral diseases
CPT/HCPCS: 36415; 80053; 85025; 85652; 86140; 86481; 86704; 86706; 86709; 86803; 87340

== ENCOUNTER 2023-11-15 10:55 | Outpatient (REF) | payer MEDICAID, SELFPAY ==
[2023-11-15 13:41] LABS: Potassium 3.3 mmol/L (3.3-5.1)
== END 2023-11-15 10:56 | disposition home or self-care (01) ==
LOC: HO.HHCL 10:55
PROVIDERS: Visit Provider Family Medicine
DX: E87.6 Hypokalemia (principal)
CPT/HCPCS: 36415; 84132

== ENCOUNTER 2023-11-17 11:40 | Outpatient (AMB) | payer MEDICAID, SELFPAY ==
--- NOTE | 2023-11-17 11:42 | HO.NEPHOV_ITS ---
Vital Signs 11/17/23 11:43 Height 4 ft 11 in Weight 176 lb BMI 35.5 BP 120/80 Blood Pressure Location Lt brachial Position Sitting Pulse 107 H Pulse Source Pulse Oximeter Pulse Oximetry (%) 92 Oxygen Delivery Method Room Air Intake Visit Reasons: ELISA/ Conf Administrative Clerk Required: Yes Administrative Clerk Name: [id number] Jocelynn Accompanied by: Self / Same As Patient Allergies penicillin G [PENICILLIN G] Allergy (Severe, Verified 11/17/23 11:45) DIZZINESS tramadol Allergy (Severe, Verified 11/17/23 11:45) Vomiting and sweats Medication List - Last Reconciled 11/17/23 by Garrett Gilbert MD acetaminophen (Tylenol) 650 mg PO Q6H PRN amlodipine 5 mg See Protocol PO DAILY aripiprazole 20 mg PO QAM atorvastatin 40 mg PO DAILY clonidine HCl 0.1 mg PO DAILY duloxetine 40 mg PO DAILY leflunomide 10 mg PO DAILY losartan 50 mg PO QAM montelukast 10 mg PO DAILY omeprazole 40 mg PO DAILY potassium chloride ER 20 mEq PO BID PRN HPI Comments Details: Pleasant middle-aged woman with a history of hypertension was recently seen during hospitalization for ELISA. She had cellulitis of the legs. She was treated with vancomycin. Subsequently developed acute kidney injury due to vanco toxicity. Vanco level was 30. The serum creatinine peaked at 6. At the time of discharge creatinine was down to 4.5. She has been nonoliguric. No signs or symptoms of uremia. Overall she is feeling better. Currently he is on amlodipine for control blood pressure. [facility] Medical History (Updated 11/01/23 @ 15:11 by Tere Obregon MD) Thoracic degenerative disc disease Back pain Asthma Fibromyalgia Sleep apnea Seropositive rheumatoid arthritis Irritable bowel Arthritis Diarrhea Acid reflux Surgical History History of esophagogastroduodenoscopy (EGD) History of laparoscopic cholecystectomy Hx of tubal ligation History of partial hysterectomy Hx of endoscopy History of colonoscopy Family History Father No problems noted. Mother History of high blood pressure Social History Household Members: None Housing: Apartment Do you presently have visiting nurse or other home services: No Alcohol intake: current Alcohol intake frequency: holidays/special occasions only Alcohol type: beer and wine Patient Tobacco Use Status: Former Tobacco user Tobacco use type: Cigarette e-Cigarette/Vaping Use: Never Used Substance Use Type: Marijuana service: No Current occupational status: disabled Physical Exam Vital Signs: Last Vital Signs Pulse 107 H 11/17/23 11:43 BP 120/80 11/17/23 11:43 Pulse Ox 92 11/17/23 11:43 Oxygen Delivery Method Room Air 11/17/23 11:43 BMI result Body Mass Index 35.5 Const General: comfortable; No acute distress Orientation/consciousness: patient oriented x3 Eyes General: appearance normal, both eyes and all related structures Visual Cardona: normal visual cardona by confrontation Neck Neck: Yes supple and Yes no JVD Resp Effort & Inspection: normal respiratory effort and respiratory effort not decreased Auscultation: rhonchi Cardio Palpation: no palpable S3 and no palpable S4 Heart sounds: no rubs GI Inspection: Yes normal to inspection Palpation (GI): Soft to palpation Percussion: Yes normal to percussion Auscultation: normal bowel sounds General: Yes no CVA tenderness Back/Spine/Pelvis Back: no CVA tenderness Skin General skin exam: no petechiae and no purpura Neuro General: patient oriented x3 and no focal motor deficits Extrem General: No clubbing and No edema Results Reviewed Nephrology Results: Hgb 14.6 g/dl (12.0-16.0) 11/09/23 WBC 8.9 X10*3/uL (4.8-10.8) 11/09/23 Plt Count 304 X10*3/uL (160-400) 11/09/23 Sodium 143 mmol/L (135-145) 11/09/23 Potassium 3.3 mmol/L (3.3-5.1) 11/15/23 Chloride 107 mmol/L (96-108) 11/09/23 Carbon Dioxide 25 mmol/L (22-29) 11/09/23 BUN 9 mg/dL (9-16) 11/09/23 Creatinine 0.80 mg/dL (0.5-1.4) 11/09/23 Calcium 10.0 mg/dL (8.4-10.2) 11/09/23 Phosphorus 2.7 mg/dL (2.7-4.5) 10/27/23 Assessment & Plan Assessment & Plan (1) ELISA (acute kidney injury): Code(s): N17.9 - Acute kidney failure, unspecified Category: Medical Plan ELISA due to vanco toxicity. Vanco induced tubular injury is gradually improving. Serum creatinine is trending down. No signs or symptoms of uremia. Fluid status seems acceptable. I will recheck the renal panel today. The meantime encouraged her to increase her fluid intake and continue to avoid nephrotoxic agents including NSAIDs. Hypertension continue with amlodipine she is stay on low-sodium diet watch blood pressure for now. Orders: Orders Basic Metabolic Panel 1 Year N17.9 - Acute kidney failure, unspecified UA and rflx microscopic 1 Year N17.9 - Acute kidney failure, unspecified Medications: Changed From potassium chloride ER 20 mEq PO BID 10 tabs 0RF To potassium chloride ER 20 mEq PO BID PRN Coding Level of Care Code Est Pt Level 4 (10843) Diagnoses ELISA (acute kidney injury) N17.9
[2023-11-17 11:43] VITALS: BP 120/80; PULSE 107; O2SAT 92; BMI 35.5
== END 2023-11-17 12:01 | disposition home or self-care (01) ==
PROVIDERS: PCP Family Medicine; Referring Provider Family Medicine; Visit Provider Internal Medicine Hypertension Specialist
DX: N17.9 Acute kidney failure, unspecified (principal)
CPT/HCPCS: 99214

== ENCOUNTER → 2023-11-17 11:40 | Outpatient (BNVA) | payer MEDICAID, SELFPAY | PROVIDERS: PCP Family Medicine; Visit Provider Internal Medicine Hypertension Specialist | DX: N17.9 Acute kidney failure, unspecified (principal); I10 Essential (primary) hypertension | CPT/HCPCS: 99212 ==

== ENCOUNTER 2023-12-19 10:04 | Outpatient (REF) | payer MEDICAID, SELFPAY ==
--- NOTE | ~2023-12-19 | US_ITS ---
EXAMINATION: US COMPLETE ABDOMEN WITH LIVER ELASTOGRAPHY CLINICAL INFORMATION: Fatty liver , MASLD COMPARISON: None available. TECHNIQUE: Real-time imaging of the abdominal viscera. Noninvasive ultrasound liver fibrosis assessment is performed using Vivian ElastPQ point quantification shear wave elastography (pSWE) with a C5-2 MHz transducer. Multiple elastography samples are obtained. FINDINGS: PANCREAS: The visualized pancreas appears unremarkable but the pancreatic tail is obscured by bowel gas. ABDOMINAL AORTA: The proximal, middle, and distal aortic segments are normal in caliber. INFERIOR VENA CAVA: Visualized portions are normal. LIVER: The liver demonstrates is enlarged measuring at least 20 cm in greatest length with increased echogenicity consistent with hepatic steatosis. No focal lesion or intrahepatic biliary duct dilatation. The right lobe measures 20.2 cm in length. The left lobe measures 4.7 cm in length. Portal flow is towards the liver (hepatopetal). Shear wave liver elastography median stiffness is 1.11 m/s (reference: normal median stiffness is 1.3 m/s or less). IQR/median stiffness to assess sampling precision is 0.23 (reference: good quality data set is IQR/median stiffness of 0.15 or less). GALLBLADDER: The gallbladder is physiologically distended without evidence of stones, sludge, polyps, wall thickening or pericholecystic fluid. COMMON BILE DUCT: Normal in caliber measuring 0.9 cm in diameter. RIGHT KIDNEY: No hydronephrosis. No renal calculi or focal parenchymal lesions. The kidney measures 12.0 cm in maximum dimension. LEFT KIDNEY: No hydronephrosis. No renal calculi or focal parenchymal lesions. The kidney measures 11.5 cm in maximum dimension. SPLEEN: Unremarkable. The spleen measures 10.9 cm in maximum dimension. FREE FLUID: None. US/US abdomen comp w elastography IMPRESSION: 1. Enlarged echogenic liver consistent with hepatic steatosis 2. Liver elastography: Although measurements suggest a high probability of normal liver stiffness, there is statistical variability of the sampling which decreases accuracy. REFERENCE: Society of Radiologists in Ultrasound Liver Stiffness Thresholds (2020): LIVER STIFFNESS THRESHOLDS: *Liver Stiffness equal or less than 1.3 m/s: High probability of being normal. *Liver Stiffness less than 1.7 m/s: In the absence of other known clinical signs, rules out compensated advanced chronic liver disease. *Liver Stiffness 1.7-2.1 m/s: Suggestive of compensated advanced chronic liver disease but need further test for confirmation. *Liver Stiffness over 2.1 m/s: Rules in compensated advanced chronic liver disease. *Liver Stiffness over 2.4 m/s: Suggestive of clinically significant portal hypertension. QUALITY OF DATA SET: *IQR/Median value equal or less than 0.15 implies a quality data set. *IQR/Median value over 0.15 implies a poor quality data set. SIGNIFICANT CHANGE FROM PRIOR EXAM: Significant change if liver stiffness measurement is 10% or greater from prior exam. OTHER CONSIDERATIONS: The stage of liver fibrosis may be overestimated in the setting of acute hepatitis, liver inflammation, elevated liver function tests, hepatic vascular congestion, obstructive cholestasis, non-fasting state, and infiltrative diseases such as amyloidosis and lymphoma. In some patients with NAFLD, the liver stiffness thresholds for compensated advanced chronic liver disease may be lower. In causes other than viral hepatitis and NAFLD, liver stiffness thresholds are not well established. Electronically signed by: Juan Ross MD 02/16/2024 11:54 AM PAULINA
--- NOTE | ~2023-12-19 | XR_ITS ---
EXAMINATION: XR HIP LEFT 2 VIEWS CLINICAL INFORMATION: Left buttock and hip pain. COMPARISON: XR Left hip with pelvis 05/20/2023 TECHNIQUE: Two views of the left hip. FINDINGS: No fracture. Alignment is anatomic. Hip joint space is maintained. Soft tissues are unremarkable. XR/XR hip LT min 2V IMPRESSION: Normal left hip. Electronically signed by: Justina Graf MD 02/21/2024 08:14 AM [facility]
== END 2023-12-19 10:05 | disposition home or self-care (01) ==
LOC: HO.US 10:04
PROVIDERS: PCP Family Medicine; Visit Provider Family Medicine
DX: K76.0 Fatty (change of) liver, not elsewhere classified (principal); M25.552 Pain in left hip
CPT/HCPCS: 73502; 76700; 76981

== ENCOUNTER → 2023-12-20 13:04 | Outpatient (REF) | payer MEDICAID, SELFPAY ==
--- NOTE | 2023-12-20 13:15 | HM_ITS ---
* Total monitoring time 1 day. * Underlying rhythm is sinus with an average rate of 91/Min. About 29% of the time, ventricular rate > 100/Min. * Rare supraventricular ectopy. * Rare ventricular ectopy. * No significant pauses or high-grade AV blocks. * No patient markers or diary events. MTDD
== END ==
LOC: HO.CARD 13:04
PROVIDERS: PCP Family Medicine; Visit Provider Family Medicine
DX: R00.0 Tachycardia, unspecified (principal)
CPT/HCPCS: 93225

== ENCOUNTER → 2023-12-20 13:15 | Outpatient (BNV) | payer MEDICAID, SELFPAY | PROVIDERS: PCP Family Medicine; Visit Provider Internal Medicine | DX: I47.10 Supraventricular tachycardia, unspecified (principal) | CPT/HCPCS: 93227 ==

== ENCOUNTER 2024-02-22 12:48 | Outpatient (REF) | payer MEDICAID, SELFPAY ==
[2024-02-22 14:40] LABS: Potassium 3.4 mmol/L (3.3-5.1)
== END 2024-02-22 12:49 | disposition home or self-care (01) ==
LOC: HO.HHCL 12:48
PROVIDERS: Visit Provider Family Medicine
DX: E87.6 Hypokalemia (principal)
CPT/HCPCS: 36415; 84132

== ENCOUNTER 2024-02-23 14:17 | Outpatient (AMB) | payer MEDICAID, SELFPAY ==
--- NOTE | 2024-02-23 14:23 | A.OFFVIS_ITS ---
Vital Signs 02/23/24 14:28 Height 4 ft 11 in Weight 182 lb 8.684 oz BMI 36.9 BP 160/100 H Blood Pressure Location Rt brachial Position Sitting Pulse 104 H Pulse Source Pulse Oximeter Pulse Oximetry (%) 97 Oxygen Delivery Method Room Air Intake Visit Reasons: RA Intake Note: Patient presents for RA. Plastic Surgery Technician Required: Yes Plastic Surgery Technician Language: Yard Person Services: Plastic Surgery Technician Present Plastic Surgery Technician Name: Lesley [id number] Information Interpreted: non-clinical & clinical Allergies penicillin G [PENICILLIN G] Allergy (Severe, Verified 02/23/24 14:28) DIZZINESS tramadol Allergy (Severe, Verified 02/23/24 14:28) Vomiting and sweats Medication List - Last Reconciled 02/23/24 by Tere Obregon MD acetaminophen (Tylenol) 650 mg PO Q6H PRN amlodipine 5 mg See Protocol PO DAILY aripiprazole 20 mg PO QAM atorvastatin 40 mg PO DAILY clonidine HCl 0.1 mg PO DAILY duloxetine 40 mg PO DAILY leflunomide 10 mg PO QAM losartan 50 mg PO QAM montelukast 10 mg PO DAILY omeprazole 40 mg (2 x 20 mg) PO DAILY potassium chloride ER 20 mEq PO BID PRN HPI Comments Details: This is a 48-year-old female with seropositive RA who presents for follow-up. On leflunomide 10 mg daily. She states that she has been doing quite well overall. She gets intermittent left knee pain especially with walking, she takes Tylenol with some relief. Denies any joint swelling or stiffness. [facility] Medical History Thoracic degenerative disc disease Back pain Asthma Fibromyalgia Sleep apnea Seropositive rheumatoid arthritis Irritable bowel Arthritis Diarrhea Acid reflux Surgical History History of esophagogastroduodenoscopy (EGD) History of laparoscopic cholecystectomy Hx of tubal ligation History of partial hysterectomy Hx of endoscopy History of colonoscopy Family History Father No problems noted. Mother History of high blood pressure Social History Household Members: None Housing: Apartment Do you presently have visiting nurse or other home services: No Alcohol intake: current Alcohol intake frequency: holidays/special occasions only Alcohol type: beer and wine Patient Tobacco Use Status: Former Tobacco user Tobacco use type: Cigarette e-Cigarette/Vaping Use: Never Used Substance Use Type: Marijuana service: No Current occupational status: disabled Review of Systems [facility] Reports arthralgias and Denies joint swelling Physical Exam Vital Signs: Last Vital Signs Pulse 104 H 02/23/24 14:28 BP 160/100 H 02/23/24 14:28 Pulse Ox 97 02/23/24 14:28 Oxygen Delivery Method Room Air 02/23/24 14:28 BMI result Body Mass Index 36.9 Const General: cooperative, healthy appearing and comfortable Nutritional Appearance: obese Orientation/consciousness: patient oriented x3 Limitations: no limitations HEENT Head: Yes normocephalic and Yes atraumatic Mouth: moist mucous membranes Resp Effort & Inspection: normal respiratory effort and able to speak in complete sentences Cardio Rate: regular rate Rhythm: regular rhythm Skin General skin exam: no rashes or lesions noted Neuro General: patient oriented x3 Extrem Other: No active synovitis today Assessment & Plan Assessment & Plan (1) Seropositive rheumatoid arthritis: Comment: +RF -ve CCP dx 10/2017 Methotrexate: Both oral and subcutaneous-GI upset Leflunomide: May 2020- off for a period of time due to running out of medication then restarted May 2021-present Code(s): M05.9 - Rheumatoid arthritis with rheumatoid factor, unspecified Category: Medical Plan: This is a 48-year-old female with seropositive RA who presents for follow-up. Doing well overall on leflunomide 10 mg daily. 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 Panel Today M05.9 - Rheumatoid arthritis with rheumatoid factor, unspecified C Reactive Protein Today M05.9 - Rheumatoid arthritis with rheumatoid factor, unspecified Erythrocyte Sedimentation Rate Today M05.9 - Rheumatoid arthritis with rheumatoid factor, unspecified Complete Blood Count Auto Diff 4 Months M05.9 - Rheumatoid arthritis with rheumatoid factor, unspecified Comprehensive Met. Panel 4 Months M05.9 - Rheumatoid arthritis with rheumatoid factor, unspecified C Reactive Protein 4 Months M05.9 - Rheumatoid arthritis with rheumatoid factor, unspecified Erythrocyte Sedimentation Rate 4 Months M05.9 - Rheumatoid arthritis with rheumatoid factor, unspecified Coding Level of Care Code Est Pt Level 4 (26442) Diagnoses Seropositive rheumatoid arthritis M05.9 long term care pharmacist use of drug Z79.899
[2024-02-23 14:28] VITALS: BP 160/100; PULSE 104; O2SAT 97; BMI 36.9
== END 2024-02-23 14:51 | disposition home or self-care (01) ==
PROVIDERS: PCP Family Medicine; Visit Provider Student in an Organized Health Care Education/Training Program
DX: M05.79 Rheumatoid arthritis with rheumatoid factor of multiple sites without organ or systems involvement (principal); Z79.631 Long term (current) use of antimetabolite agent
CPT/HCPCS: 99214

== ENCOUNTER → 2024-02-23 14:17 | Outpatient (BNVA) | payer MEDICAID, SELFPAY | PROVIDERS: PCP Family Medicine; Visit Provider Student in an Organized Health Care Education/Training Program | DX: M05.9 Rheumatoid arthritis with rheumatoid factor, unspecified (principal); Z79.899 Other long term (current) drug therapy | CPT/HCPCS: 99212 ==

== ENCOUNTER 2024-04-05 12:28 | Outpatient (AMB) | payer MEDICAID, SELFPAY ==
--- NOTE | 2024-04-05 12:41 | MHC.OFFVIS ---
Vital Signs 04/05/24 12:49 Height 4 ft 11 in Weight 184 lb BMI 37.2 BP 130/90 H Blood Pressure Location Lt brachial Position Sitting Pulse 124 H Pulse Source Pulse Oximeter Pulse Oximetry (%) 94 Oxygen Delivery Method Room Air Intake Visit Reasons: 1 yr f/u for sleep Intake Note: Patient presents for a 6 mo fu for BONNIE. Newspaper Distributor Supervisor Required: Yes Newspaper Distributor Supervisor Language: [employer] Buyer Name: Yo [id number] Accompanied by: Self / Same As Patient Allergies penicillin G [PENICILLIN G] Allergy (Severe, Verified 04/05/24 12:49) DIZZINESS tramadol Allergy (Severe, Verified 04/05/24 12:49) Vomiting and sweats Medication List - Last Reconciled 04/05/24 by Rhonda Berg PA-C acetaminophen (Tylenol) 650 mg PO Q6H PRN amlodipine 5 mg See Protocol PO DAILY aripiprazole 20 mg PO QAM atorvastatin 40 mg PO DAILY clonidine HCl 0.1 mg PO DAILY duloxetine 40 mg PO DAILY leflunomide 10 mg PO QAM losartan 50 mg PO QAM magnesium aspart,citrate,oxide 400 mg PO DAILY 30 days MDD 400mg montelukast 10 mg PO DAILY omeprazole 40 mg (2 x 20 mg) PO QAM potassium chloride ER 20 mEq PO BID PRN HPI Comments Details: 47 y/o female patient presents for follow up of BONNIE on CPAP. Pt reports she sleeps well with CPAP and wakes up refreshed and energized. She states that she is trying to lose weight however it has been difficult. CPAP compliance report (04/05/2023- 04/02/2024) She is on APAP [id number]. >4 hours usage is 96% and the average usage hours 10 hours and 41 min. The median pressure is 11 and the residual AHI was 0.9/hr. 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 She goes to sleep at 9pm and wakes up at 10am, with 2-3 bathrooms breaks. She has RA is on 10mg of Leflunomide daily. She is taking Ariprazole 20mg for IBS, Clonidine 0.1mg PO for panic attacks and depression. The panic attacks and depression is now better controlled. Panic attacks still happen at least 2-3 a week, when she goes out alone or when she is home alone, and if she is around a group of people. She sees a therapist weekly. Her knees and hip L. side hurt a lot. Restless Legs: She is on Duloxetine 40mg daily. She denies pins and needles, cramps and spasms in both calves, she has to get out of bed and straightens them which helps. She gets up frequently at night to move her legs and it helps her to sleep. STM is poor at baseline, forgets appointments, is good with writing down daily tasks and driving locally. Her mood is normal and she is trying to implement good dietary habits. [facility] Medical History Thoracic degenerative disc disease Back pain Asthma Fibromyalgia Sleep apnea Seropositive rheumatoid arthritis Irritable bowel Arthritis Diarrhea Acid reflux Surgical History History of esophagogastroduodenoscopy (EGD) History of laparoscopic cholecystectomy Hx of tubal ligation History of partial hysterectomy Hx of endoscopy History of colonoscopy Family History Father No problems noted. Mother History of high blood pressure Social History Household Members: None Housing: Apartment Do you presently have visiting nurse or other home services: No Alcohol intake: current Alcohol intake frequency: holidays/special occasions only Alcohol type: beer and wine Patient Tobacco Use Status: Former Tobacco user Tobacco use type: Cigarette e-Cigarette/Vaping Use: Never Used Substance Use Type: Marijuana service: No Current occupational status: disabled Review of Systems Const All systems reviewed & are unremarkable except as noted in HPI and below ENT Reports Normal hearing present Neuro Reports Normal hearing present Physical Exam Vital Signs: Last Vital Signs Pulse 124 H 04/05/24 12:49 BP 130/90 H 04/05/24 12:49 Pulse Ox 94 04/05/24 12:49 Oxygen Delivery Method Room Air 04/05/24 12:49 BMI result Body Mass Index 37.2 Const General: cooperative and comfortable Nutritional Appearance: obese Orientation/consciousness: patient oriented x3 HEENT Face and sinus: Yes normal facial exam and Yes face symmetric Eyes Pupils: Equal, round and reactive pupils present Neck Neck: Yes full ROM and Yes supple Resp Effort & Inspection: normal respiratory effort and able to speak in complete sentences Neuro General: patient oriented x3, gait normal and moves all extremities Cranial nerves: Yes CN's II-XII intact bilaterally, Yes Equal, round and reactive pupils present, Yes Normal accommodation reflex present, Yes Bilaterally intact EOM present, Yes Nystagmus not present, Yes Normal facial strength present, Yes Midline tongue present, Yes Symmetric palate elevation present, Yes Normal hearing present, Yes Ability to bilaterally rotate head present and Yes Ability to bilaterally elevate shoulders present Cognition (Neuro): normal cognition Gait exam (Neuro): Normal gait present Motor exam (neuro): Normal motor muscle tone present throughout and Abnormal motor strength present (4/5 UE and 3/5 LE) Deep tendon reflexes (DTR's): Right triceps reflex intensity grade: 2+, Left triceps reflex intensity grade: 2+, Rt Biceps (C5, C6): 2+, Left biceps reflex intensity grade: 2+, Right brachioradialis reflex intensity grade: 2+, Left brachioradialis reflex intensity grade: 2+, Right patellar reflex intensity grade: 2+ and Left patellar reflex intensity grade: 2+ Psych Thought process: Normal thought process present Thought content: Normal thought content present Results Reviewed Results Reviewed: Compliance report (04/05/2023- 04/02/2024) She is on APAP [id number]. >4 hours usage is 96% and the average usage hours 10 hours and 41 min. The median pressure is 11 and the residual AHI was 0.9/hr. [facility] Compliance Report Assessment & Plan Assessment & Plan (1) Muscle cramps at night: Code(s): R25.2 - Cramp and spasm Category: Medical (2) BONNIE on CPAP: Code(s): G47.33 - Obstructive sleep apnea (adult) (pediatric); Z99.89 - Dependence on other enabling machines and devices Category: Medical (3) Restless legs: Comment: with hand/leg cramps Code(s): G25.81 - Restless legs syndrome Category: Medical (4) Acid reflux: Comment: Consistent ppi switched to Omeprazole 30 mg Reflux precautions= again reviewed Encouraged Dietary modifications Avoid weight gain Code(s): K21.9 - Gastro-esophageal reflux disease without esophagitis Category: Medical Qualifiers: Esophagitis presence: without esophagitis Qualified Code(s): K21.9 - Gastro-esophageal reflux disease without esophagitis Plan Sleep Apnea : Continue to use APAP at [id number] as patient experiences good clinical effects. GERD: Continue with Omeprazole 40mg PO daily. Leg Cramps: magnesium 400mg PO at bedtime. BMI is elevated: She declined weight management at this time. F/U in 6 months Medications: New magnesium aspart,citrate,oxide Take one capsule daily 400mg PO at bedtime. 400 mg PO DAILY 30 days 30 caps 3RF muslce cramps MDD 400mg R25.2 - Cramp and spasm Coding Level of Care Code Est Pt Level 4 (84822) Diagnoses Muscle cramps at night R25.2 BONNIE on CPAP G47.33; Z99.89 Restless legs G25.81 Gastroesophageal reflux disease without esophagitis K21.9 Esophagitis presence: without esophagitis Time Spent (min) 35 Comment May f/u sooner if RLS is not controlled
[2024-04-05 12:49] VITALS: BP 130/90; PULSE 124; O2SAT 94; BMI 37.2
--- OUTSIDE RECORDS SUMMARY | 2024-04-05 16:16 | XMS_ITS | Clinical Summary ---
Author Organization [employer] Address [address] [facility] [address] [place] [address] Care Team Providers Care Landscape Manager Name Role Phone Kay Pedersen MD Primary Care Provider Shadi Cabrera PharmD Unavailable [phone] Allergies Active Allergy Reactions Criticality Noted Date Comments Penicillin G Dizziness High 11/09/2022 Penicillins Dizziness 01/25/2017 Tramadol High 01/25/2017 Other reaction(s): Vomiting and sweats Medications * This document contains information received from the source organization and may not represent a complete record from that organization. cetirizine (ZyrTEC) 10 MG tablet Take 1 tablet (10 mg) by mouth in the morning. 90 tablet 3 023 Active ARIPiprazole (Abilify) 20 MG tablet Take 1 tablet (20 mg) by mouth in the morning. 90 tablet 1 023 Active cloNIDine (Catapres) 0.1 MG tablet Take 1 tablet (0.1 mg) by mouth 2 times daily. 180 tablet 1 023 Active Blood Pressure Monitor kit Check blood pressure once daily and as needed 1 kit 023 Active Symbicort 160-4.5 MCG/ACT inhaler INHALE 2 PUFFS BY MOUTH TWICE DAILY. RINSE MOUTH AFTER USING. 023 Active SM Fiber Laxative 500 MG tablet TAKE 1 TABLET BY MOUTH TWICE DAILY IN THE MORNING AND IN THE EVENING 023 Active omeprazole (PriLOSEC) [address] capsule TAKE 2 CAPSULES BY MOUTH ONCE DAILY IN THE MORNING 023 Active albuterol (ProAir HFA) 108 (90 Base) MCG/ACT inhaler inhale 2 puff by inhalation route every 4 - 6 hours as needed Active omega-3 (Fish Oil) 1000 MG capsule Take 1,000 mg by mouth in the morning. Purchases OTC Active cyclobenzaprine (Flexeril) 10 MG tabletIndications :Muscle spasm TAKE 1 TABLET BY MOUTH ONCE DAILY 3 HOURS BEFORE BEDTIME 30 tablet 1 024 Active DULoxetine (Cymbalta) [address] capsule TAKE 2 CAPSULES BY MOUTH ONCE DAILY IN THE MORNING Active leflunomide (Arava) 10 MG tablet Take 10 mg by mouth Once per day. Active losartan (Cozaar) 50 MG tabletIndications :Hypertension, unspecified type Take 1 tablet (50 mg) by mouth Once per day. 90 tablet 3 024 Active amLODIPine (Norvasc) 10 MG tabletIndications :Primary hypertension Take 1 tablet (10 mg) by mouth Once per day. 90 tablet 3 024 Active albuterol (2.5 MG/3ML) 0.083% nebulizer solution Take 3 mL (2.5 mg) by nebulization every 4 (four) hours if needed for wheezing. 75 mL 1 024 Active hydrOXYzine HCl (Atarax) 25 MG tablet Take 1 tablet (25 mg) by mouth every 12 (twelve) hours if needed for anxiety. 60 tablet 1 024 Active prazosin (Minipress) 1 MG capsule Take 1 mg by mouth at bedtime. Active montelukast (Singulair) 10 MG tabletIndications :Moderate persistent asthma without complication TAKE 1 TABLET BY MOUTH AT BEDTIME 90 tablet 1 024 Active atorvastatin (Lipitor) 40 MG tabletIndications :Mixed hyperlipidemia TAKE 1 TABLET BY MOUTH AT BEDTIME 90 tablet 1 024 Active potassium chloride CR (Klor-Con M20) 20 MEQ ER tablet TAKE 1 TABLET BY MOUTH EVERY DAY DIRECTED BY provider 30 tablet 1 025 Active guaiFENesin (Humibid 3) 400 MG tablet Take 1 tablet (400 mg) by mouth every 6 (six) hours if needed for cough. 20 tablet 025 Active melatonin 5 MG tabletIndications :Anxious depression TAKE 1 TO 2 TABLETS BY MOUTH AT BEDTIME NEEDED for SLEEP 60 tablet 1 023 2024 Discontinued(M ed list cleanup (will not trigger notification to Pharmacy)) potassium chloride CR (Klor-Con M20) 20 MEQ ER tablet Take 1 tablet by mouth once daily when instructed by your provider. 30 tablet 1 024 2024 Discontinued Active Problems Problem Noted Date Diagnosed Date Sinus tachycardia 03/17/2024 Assessment & Plan (03/17/2024 6:25 AM EST): - unlikely to be POTS or postCOVID problem - normal TSH - Holter monitor on 01/18/24 sinus tachycardia, HR > 100, approximately 29%. Average 91. - possibly due to medication side effects / interaction (aripiprazole, prazosin, albuterol, duloxetine) - continue optimize treatment for asthma / BONNIE to minimize albuterol use - patient reports palpitation, yet no pain. Will consider cardiology evaluation if patient develops pain or palpitation worsens Cough 03/12/2024 Assessment & Plan (03/17/2024 5:50 AM EST): - likely combination of asthma, allergic rhinitis, less likely viral or bacterial infection - Reviewed ER precaution - Reviewed albuterol use - Will prescribe Guaifenesin Metabolic dysfunction-associ ated steatotic liver disease (MASLD) 11/25/2023 Assessment & Plan (03/17/2024 6:22 AM EST): - In a setting of leflunomide treatment for RA - Last liver test: 09/03/23 - Last US / elastography: 12/19/23 enlarged echogenic liver suggestive of hepatic steatosis. Normal liver stiffness. - FIB4 index 1.74 cirrhosis indeterminate - GI: [facility], last seen in Nov 2022 - continue working on lifestyle modifications - continue surveillance study - will vaccinate Hep A and B Assessment & Plan (11/25/2023 4:58 PM EDT): - Last liver test: 09/03/23 - Last US / elastography: will order - FIB4 index 1.74 cirrhosis indeterminate - GI: [facility], last seen in Nov 2022 - continue working on lifestyle modifications - continue surveillance study - will vaccinate Hep A and B Hypokalemia 11/23/2023 Assessment & Plan (03/12/2024 10:56 AM EST): - most recent potassium was normal - optimize asthma management so that she does not use albuterol excessively - continue periodic labs - continue losartan Assessment & Plan (11/25/2023 4:43 PM EDT): - most recent potassium was normal - optimize asthma management so that she does not use albuterol excessively - continue periodic labs - continue losartan Osteoporosis 10/12/2023 Assessment & Plan (11/24/2023 12:55 PM EDT): Most recent DEXA 06/01/23 Mild osteopenia lumbar T-score -1.2 Thoracic degenerative disc disease 10/12/2023 Fibromyalgia 04/25/2023 Assessment & Plan (11/24/2023 12:54 PM EDT): - continue duloexetine (Cymbalta) - continue judicious usee of cyclobenzaprine - continue following recommendations from rheumtalogist - continue staying physically active Assessment & Plan (05/01/2023 11:29 AM EST): - continue duloexetine (Cymbalta) - continue judicious usee of cyclobenzaprine - continue following recommendations from rheumtalogist - continue staying physically active Restless legs 02/01/2023 02/01/2023 Long-term use of immunosuppressant medication 02/01/2023 Assessment & Plan (03/17/2024 5:56 AM EST): - previously on methotrexate. Currently on leflunomide for RA - continue precautionary measure and periodic monitoring Irritable bowel 02/01/2023 02/01/2023 Hemorrhoids 02/01/2023 02/01/2023 Environmental allergies 02/01/2023 02/02/20 Chronic upper back pain 10/12/2022 Assessment & Plan (01/31/2023 5:58 AM EST): - following with sewer pipe press operator - continue duloxetine, cyclobenzaprine Assessment & Plan (10/14/2022 10:27 AM EDT): - following with sewer pipe press operator - continue duloxetine, cyclobenzaprine Acid reflux 10/12/2022 Assessment & Plan (01/31/2023 5:57 AM EST): - following with GI - with hiatal hernia - EGD on 11/09/22 showed esophagitis - switched pantoprazole to omeprazole by GI in Nov 2022 - continue omeprazole - continue lifestyle modifications Assessment & Plan (10/14/2022 10:27 AM EDT): - following with GI - with hiatal hernia - upcoming appt for EGD - continue pantoprazole - continue lifestyle modifications Allergic rhinitis 10/12/2022 Assessment & Plan (10/14/2022 10:32 AM EDT): - continue montelukast - switch antihistamine, loratadine to cetirizine Obstructive sleep apnea syndrome 10/11/2022 Assessment & Plan (03/12/2024 10:57 AM EST): - following with sleep medicine clinic, last seen in September 2022 - Continue Auto PAP 5-15 cm H2O Assessment & Plan (11/24/2023 11:29 AM EDT): - following with sleep medicine clinic, last seen in September 2022 - Continue Auto PAP 5-15 cm H2O Assessment & Plan (04/30/2023 7:30 AM EST): - following with sleep medicine clinic, last seen in September 2022 - Continue Auto PAP 5-15 cm H2O Assessment & Plan (01/31/2023 5:56 AM EST): - following with sleep medicine clinic, last seen in September 2022 - Continue Auto PAP 5-15 cm H2O Assessment & Plan (10/14/2022 9:39 AM EDT): - following with sleep medicine clinic, last seen in September 2022 - Continue Auto PAP 5-15 cm H2O Anxiety and depression 05/30/2018 Assessment & Plan (03/10/2024 6:33 PM EST): - previously following with Thier[facility] - current medications: Abilify; hydroxyzine; duloxetine - continue current counseling and medications Assessment & Plan (11/24/2023 12:57 PM EDT): - previously following with Thier[facility] - current medications: Abilify; hydroxyzine; duloxetine - continue current counseling and medications Assessment & Plan (03/14/2023 10:07 AM EST): With severe trauma history. PMH: Seropositive RA, severe persistent asthma. She is still feeling anxious despite medication. Working with therapist on self- care exercises. Interested in Acupuncture, so given info on [facility] Acupuncture clinics. She has also been scheduled with [facility] prescriber to transfer care. Meanwhile, continue Abilify 20 mg daily (move to am), Duloxetine (Cymbalta) 60 mg BID for depression and fibromyalgia, Clonidine 0.1 mg BID for anxiety, Hydroxyzine 25 mg 1-2 every 6 hours as needed for anxiety. Melatonin 10 mg at bedtime as needed. We will not schedule F/U with this provider. I have wished her well. She agrees with the plan. Assessment & Plan (01/31/2023 6:02 AM EST): - following with Thierry - current medications: Abilify; hydroxyzine; duloxetine - continue current counseling and medications Assessment & Plan (01/10/2023 3:33 PM EST): With severe trauma history. PMH: Seropositive RA, severe persistent asthma. Continue Abilify 20 mg daily (move to am). Continue Duloxetine (Cymbalta) 60 mg BID for depression and fibromyalgia, Clonidine 0.1 mg BID for anxiety, Hydroxyzine 25 mg 1-2 every 6 hours as needed for anxiety. Melatonin 10 mg at bedtime as needed. F/U with therapist as usual. Today 01/10/2023 provider informed pt that I would be retiring within the next year or so, and suggest she discuss with her therapist getting referral to agency psychiatrist. F/U with me in 2 months. She agrees with the plan. Assessment & Plan (10/19/2022 2:00 PM EDT): With severe trauma history. PMH: Seropositive RA, severe persistent asthma. Continue Abilify 20 mg daily, if it is easier to remember, may take in the morning. Continue Duloxetine (Cymbalta) 60 mg BID for depression and fibromyalgia, Clonidine 0.1 mg BID for anxiety, Hydroxyzine 25 mg 1-2 every 6 hours as needed for anxiety. Melatonin 10 mg at bedtime as needed. She has been given exercises to control anxiety -- urged to practice these. F/U with therapist as usual. F/U with me in 2 months. She agrees with the plan. Assessment & Plan (10/14/2022 10:32 AM EDT): - following with Thierry - current medications: Abilify; hydroxyzine; duloxetine - continue current counseling and medications Assessment & Plan (08/17/2022 12:07 PM EDT): With severe trauma history. PMH: Seropositive RA, severe persistent asthma. Continue Abilify 20 mg daily. Continue Duloxetine (Cymbalta) 60 mg BID for depression and fibromyalgia, Clonidine 0.1 mg BID for anxiety, Hydroxyzine 25 mg 1-2 every 6 hours as needed for anxiety. Melatonin 10 mg at bedtime as needed. F/U with therapist as usual. F/U with me in 2 months. She agrees with the plan. Assessment & Plan (06/14/2022 2:14 PM EDT): With severe trauma history. PMH: Seropositive RA, severe persistent asthma. Continue Abilify 20 mg daily. Continue Duloxetine (Cymbalta) 60 mg BID for depression and fibromyalgia, Clonidine 0.1 mg BID for anxiety, Hydroxyzine 25 mg 1-2 every 6 hours as needed for anxiety. Melatonin 10 mg at bedtime as needed. F/U with therapist as usual. F/U with me in 2 months. She agrees with the plan. Hiatal hernia 05/30/2018 Seropositive rheumatoid arthritis 05/30/2018 Assessment & Plan (03/10/2024 6:33 PM EST): - following with [facility], last seen on 03/04/24 - previously taking methotrexate - currently taking leflunomide - patient did not take leflunomide from 09/03/23 to 11/01/23 due to sepsis and cellulitis - continue current treatment plan Assessment & Plan (11/25/2023 4:46 PM EDT): - following with [facility], last seen on 11/01/23 - previously taking methotrexate - currently taking leflunomide - patient did not take leflunomide from 09/03/23 to 11/01/23 due to sepsis and cellulitis - continue current treatment plan Assessment & Plan (05/01/2023 11:33 AM EST): - following with [facility] - previously taking methotrexate - currently taking leflunomide - continue current treatment plan Assessment & Plan (01/31/2023 5:59 AM EST): - following with [facility] - previously taking methotrexate - currently taking leflunomide - continue current treatment plan Assessment & Plan (10/14/2022 10:30 AM EDT): - [facility] - previously taking methotrexate - currently taking leflunomide - continue current treatment plan Polyp in nasopharynx 05/30/2018 02/01/2023 Obesity 07/05/2017 Assessment & Plan (11/24/2023 12:57 PM EDT): - patient received prednisone for asthma exacerbation and rheumatoid arthritis flare-up - consider GLP1-RA Prediabetes 07/05/2017 Assessment & Plan (03/17/2024 6:26 AM EST): - Hx systemic steroid use, more frequent in the past for RA and asthma - the highest A1C 6.1% in 2021 - the most recent A1C 5.9% on 10/05/23 - continue working on lifestyle modifications - optimize chronic disease management and prevent exacerbation Assessment & Plan (11/24/2023 11:32 AM EDT): - Hx systemic steroid use, more frequent in the past for RA and asthma - the highest A1C 6.1% in 2021 - the most recent A1C 5.9% on 10/05/23 - continue working on lifestyle modifications - optimize chronic disease management and prevent exacerbation Assessment & Plan (05/01/2023 11:32 AM EST): - Hx systemic steroid use, more frequent in the past for RA and asthma - the highest A1C 6.1% in 2021 - the most recent A1C 5.8% in Oct 2022 - continue working on lifestyle modifications - optimize chronic disease management and prevent exacerbation Assessment & Plan (01/31/2023 5:59 AM EST): - 10/12/22 A1C 5.7%, improved from 06/15/21 A1C 6.1% - lifestyle modifications Assessment & Plan (10/14/2022 10:28 AM EDT): - 06/15/21 A1C 6.1% - recheck A1C - lifestyle modifications Sinusitis with nasal polyps 04/04/2017 Asthma 01/25/2017 Assessment & Plan (03/10/2024 6:30 PM EST): - last exacerbation in Nov 2023, treated with prednisone. No antibiotic. - following with [facility] pulmonology, last seen in Jan 2023 - PFT in 2021: FEV1 1.73 liters, 72%. Forced vital capacity 2.37 liters, 80%. Ratio 73. There is a 9% improvement in FEV1 with the administration of bronchodilators. Total lung capacity is normal. Diffusing capacity is normal. - Continue budesonide / formoterol (Symbicort) as maintenance - Continue albuterol as rescue - Continue montelukast Assessment & Plan (11/24/2023 12:52 PM EDT): - mild exacerbation today, will treat with short course of prednisone - following with [facility] pulmonology - Continue budesonide / formoterol (Symbicort) as maintenance - Continue albuterol as rescue - Continue montelukast Assessment & Plan (04/25/2023 3:28 PM EST): - following with [facility] pulmonology - Continue budesonide / formoterol (Symbicort) as maintenance - Continue albuterol as rescue - Continue montelukast Assessment & Plan (01/31/2023 5:56 AM EST): - following with [facility] pulmonology - Continue Symbicort as maintenance - Continue albuterol as rescue - Continue montelukast Assessment & Plan (10/14/2022 9:40 AM EDT): - following with [facility] pulmonology - Continue Symbicort as maintenance - Continue albuterol as rescue - Continue montelukast Hyperlipidemia 01/25/2017 Assessment & Plan (03/17/2024 5:57 AM EST): - On atorvostatin. and omega 3 - continue working on lifestyle modifications - Last lipid profile 05/20/23 Assessment & Plan (11/24/2023 12:58 PM EDT): - On atorvostatin. and omega 3, not completely compliant - Advised dietary intervention and compliance to medication - Last lipid profile 05/20/23 Assessment & Plan (05/01/2023 11:33 AM EST): - On atorvostatin. and omega 3, not completely compliant - Advised dietary intervention and compliance to medication - Last lipid profile 10/12/22 TC 236; TG 312; HDL 47; LDL 127 Assessment & Plan (01/31/2023 6:01 AM EST): - On atorvostatin. and omega 3, not completely compliant - Advised dietary intervention and compliance to medication - Last lipid profile 10/12/22 TC 236; TG 312; HDL 47; LDL 127 Assessment & Plan (10/14/2022 10:30 AM EDT): - On atorvostatin. and omega 3, not completely compliant - Advised dietary intervention and compliance to medication - repeat lipid panel Hypertension 01/25/2017 Assessment & Plan (03/17/2024 5:52 AM EST): -Goal BP < 140/90 per JNC-8 and < 130/80 per ACC/AHA guideline (Treatment threshold >= ) -BP at goal, previously had Dx HTN and was taking atenolol -Continue working on lifestyle modifications -Recommended self-monitoring BP. -Continue losartan 50 mg daily -Continue amlodipine to 10 mg; consider changing to a combo pill -Continue clonidine 0.1 mg bid -Consider beta royal since patient is tachycardic -Treatment Hx: atenolol, which was discontinued for unclear reason -Her high blood pressure could be due to all of the medications she takes Assessment & Plan (11/24/2023 12:54 PM EDT): -Goal BP < 140/90 per JNC-8 and < 130/80 per ACC/AHA guideline (Treatment threshold >= ) -BP not at goal, previously had Dx HTN and was taking atenolol -Continue working on lifestyle modifications -Recommended self-monitoring BP. -Continue losartan to 50 mg daily -Increase amlodipine to 10 mg -Continue clonidine 0.1 mg bid -Consider beta royal since patient is tachycardic -Treatment Hx: atenolol, which was discontinued for unclear reason -Follow up in 3-6 mo, sooner if any problem arises Assessment & Plan (04/30/2023 7:31 AM EST): -Goal BP < 140/90 per JNC-8 and < 130/80 per ACC/AHA guideline (Treatment threshold >= ) -BP not at goal, previously had Dx HTN and was taking atenolol -Continue working on lifestyle modifications -Recommended self-monitoring BP. -Increase losartan to 25 mg daily, or consider 12.5 mg bid since losartan's 1/2 life is shorter than previously expected. -Continue clonidine 0.1 mg bid -Treatment Hx: atenolol, which was discontinued for unclear reason -Follow up in 3-6 mo, sooner if any problem arises Assessment & Plan (01/31/2023 2:16 PM EST): -Goal BP < 140/90 per JNC-8 and < 130/80 per ACC/AHA guideline (Treatment threshold >= ) -BP not at goal, previously had Dx HTN and was taking atenolol -Continue working on lifestyle modifications -Recommended self-monitoring BP. -Start losartan 12.5 mg daily -Continue clonidine 0.1 mg bid -Treatment Hx: atenolol, which was discontinued for unclear reason -Follow up in 3-6 mo, sooner if any problem arises Resolved Problems Problem Noted Date Diagnosed Date Resolved Date Hyponatremia 11/23/2023 11/23/2023 Encounters Date Type Department Care Team Description 03/12/2024 10:15 AM EST Office Visit [facility] [address] [place] [phone] Kay Pedersen MD Moderate persistent asthma without complication (Primary Dx); Obstructive sleep apnea syndrome; Hypertension, unspecified type; Metabolic dysfunction-associated steatotic liver disease (MASLD); Anxiety and depression; Hypokalemia; Long-term use of immunosuppressant medication; Seropositive rheumatoid arthritis ([facility]); Encounter for immunization; Cough, unspecified type; Mixed hyperlipidemia; Sinus tachycardia; Dietary counseling; Exercise counseling; Class 2 severe obesity due to excess calories with serious comorbidity and body mass index (BMI) of 35.0 to 35.9 in adult ([facility]); Prediabetes 03/12/2024 Travel 03/10/2024 Refill [facility] [address] [place] [address] Kay Pedersen MD 03/08/2024 Telephone [facility] [address] [place] [address] [phone] Lucy Mccarty MA chart prep 02/16/2024 Refill [facility] [address] [place], [place] [phone] Kay Pedersen MD Mixed hyperlipidemia 02/13/[address] [address] Kay Pedersen MD Medication Question 02/09/2024 Refill [facility] [address] [place] [address] Kay Pedersen MD Moderate persistent asthma without complication from Last 3 Months Immunizations Name Administration Dates Next Due Hep A, Adult 03/12/2024 Hep B, adult 07/07/2023,01/31/2023,10/12/2022 Influenza injectable quadriv alent preservative free 01/31/2023,01/02/2021,04/30/2020,2018,04/04/2018 Influenza, seasonal, injecta ble, preservative free 11/24/2023 Pfizer Covid-19 Vaccine 12+ Bivalent 04/12/2022 Pneumococcal Conjugate PCV 20 01/31/2023 Tdap 04/04/2018 Family History Medical History Relation Name Comments Hypertension Brother Heart disease Mother Hypertension Mother Breast cancer Mother's Sister Relation Name Status Comments Brother Mother Mother's Sister Social History Tobacco Use Types Packs/Day Years Used Date Smoking Tobacco: Former Passive Smoke Exposure: Past Smokeless Tobacco: Never Alcohol Use Standard Drinks/Week Comments Not Currently 0 (1 standard drink = 0.6 oz pur e alcohol) Depression Answer Date Recorded Patient Health Questionnaire-9 Score 10 03/21/2024 Patient Health Questionnaire-9 Score 10 03/21/2024 Last PHQ-9: Questionnaire Data Not on file 0 03/21/2024 Housing Stability Answer Date Recorded What is your housing situation today? I have rivera collins 12/20/[address] you li ve. Do you have problems with any of the following? None of the above 12/20/2022 Food Insecurity Answer Date Recorded Within the past 12 months, y ou worried that your food would run out before you got money to buy more: Never True 12/20/2022 Within the past 12 months,th e food you bought just didn't last and you didn't have enough money to get more: Never True Transportation Answer Date Recorded In the past 12 months, has l ack of transportation kept you from medical appts, meetings, work or from getting things needed for daily living? No 12/20/2022 Utilities Answer Date Recorded In the past 12 months, has t he electric, gas, oil or water company threatened to shut off services in your home? No 12/20/2022 Depression Answer Date Recorded Patient Health Questionnaire-2 Score 2 03/21/2024 Comments No Sex and Gender Information Value Date Recorded Sex Assigned at Female 01/04/2022 10:32 AM EDT Legal Sex Female 10:32 AM EDT Gender Identity Female 01/04/2022 10:32 AM EDT Sexual Orientation Straight 01/04/2022 10 :32 AM EDT Last Filed Vital Signs Vital Sign Reading Time Taken Comments Blood Pressure 110/80 03/12/2024 10:43 AM EST Pulse 112 03/12/2024 10:43 AM EST Temperature 36.4 ??C (97.6 ??F) 03/12/2024 10:[address] Respiratory Rate 19 03/12/2024 10:43 AM EST Oxygen Saturation 98% 03/12/2024 10:43 AM EST Inhaled Oxygen Concentration - - Weight 83.6 kg (184 lb 6.4 oz) 03/12/2024 10:43 AM EST Height 153.2 cm (5' 0.32 ) 03/12/2024 10:[address] Body Mass Index 35.63 03/12/2024 10:43 AM EST Plan of Treatment Health Maintenance Due Date Last Done Comments CT Colonography 1975 FIT DNA/Cologuard 1975 FIT 1975 FOBT 1975 Sigmoidoscopy 1975 Family Planning (PISQ) 06/28/1990 COVID-19 Vaccine ( season) 2023 04/12/2022, 01/26/2021, 01/05/2021 SDOH Screening 07/18/2024 07/19/2023 Hepatitis A Vaccines (2 of 2 - Risk 2-dose series) 09/09/2024 03/12/2024 Depression Monitoring (PHQ-9) 09/18/2024 03/21/2024, 03/21/2024 Diabetes: Hemoglobin A1C 10/04/2024 024, 10/12/2022, 06/15/2021, Additional history exists Alcohol/Substance Use Screening 03/12/2025 03/12/2024 Tobacco Screening 03/12/2025 03/12/2024 Depression Screening 03/21/2025 03/21/2024, 03/21/19 25 Mammogram 05/31/2025 06/01/2023, 10/07/2017 Zoster Vaccines (1 of 2) 06/28/2025 DTaP/Tdap/Td Vaccines (2 - Td or Tdap) 04/04/2028 04/04/2018 Lipid Panel 05/19/2028 05/20/2023, 08/10/2022, 06/15/2021, Additional history exists Colonoscopy 11/09/2032 11/09/2022 Colorectal Cancer Screening 11/09/2032 RSV Patients and Patients Aged 60 years or older (1 - 1-dose 75+ series) 06/28/2050 HIV Screening Completed 04/18/2019 Hepatitis C Screening Completed 10/12/2022 Pneumococcal Vaccine: Pediatrics (0 to 5 Years) and At-Risk Patients (6 to 49) Years) Completed 01/31/2023 Hepatitis B Vaccines Completed 07/07/2023, 01/31/2023, 10/12/2022 Influenza Vaccine Completed 11/24/2023, , 01/02/2021, Additional history exists HIB Vaccines Aged Out No longer eligi ble based on patient's age to complete this topic HPV Vaccines Aged Out No longer eligi ble based on patient's age to complete this topic IPV Vaccines Aged Out No longer eligi ble based on patient's age to complete this topic Meningococcal Vaccine Aged Out No deniz kate eligible based on patient's age to complete this topic RSV under 20 months Aged Out No longe r eligible based on patient's age to complete this topic Rotavirus Vaccines Aged Out No longer eligible based on patient's age to complete this topic Goals Goal Patient Goal Type Associated Problems Recent Progress Patient-Stated? Author Blood Pressure < 140/90 Blood Pressure 110/80( 025 10:43 AM EST) No Shadi Cabrera, Solange Procedures Procedure Name Priority Date/Time Associated Diagnosis Comments POTASSIUM Routine 02/22/2024 12:50 PM EST Hypokalemia HEMOGLOBIN A1C Routine 10/05/2023 3:20 PM EDT Prediabetes BI MAMMOGRAM SCREENING TOMOSYNTHESIS BILATERAL Routine 06/01/2023 2:10 PM EDT LIPID PANEL WITH REFLEX TO DIRECT LDL Routine 05/20/2023 11:00 AM EDT Hyperlipidemia, unspecified hyperlipidemia type HM COLONOSCOPY Routine 11/09/2022 HEPATITIS C ANTIBODY REFLEX Routine 10/12/2022 11:06 AM EDT ZZZ HISTORICAL HIV AB/AG Routine 04/18/2019 11:04 AM EST from Last 3 Months or Most Recently Relevant to Health Maintenance Results * Potassium (02/22/2024 12:50 PM EST) Potassium 3.4 3.3 - 5.1 mmol/L [facility] Blood Venous blood specimen / Unknown 02/22/2024 12:50 PM EST 02/22/2024 1:52 PM EST us Kay Pedersen MD LAB BLOOD ORDERABLES Final Resul t [facility] [address] [place] [phone] * Hemoglobin A1c (10/05/2023 3:20 PM EDT) Hemoglobin A1c 5.9 <6.0 % [facility] Comment:Hemoglobin A1C Refer ence Range Adults: 4.8 - 6.0 % Non diabetic: < 6.0 % Goal: < 7.0 %Additional Action Suggested: > 8.0 %Note: Hemoglobin A1c results are invalid for patients with abnormal amounts of HbF. Blood transfusions may impact the HbA1c concentration in the patient sample. Estimated Average Glucose 123 mg/dL [facility] Comment:eAG = Estimated ave rage glucose which is %A1C expressed asaverage glucose, using the formula of the N1Y-CvtwbolZtoyaoz Glucose study (ADAG), Diabetes Care, Vol.31,#8,2007 Blood Venous blood specimen / Unknown 10/05/2023 3:20 PM EDT 10/05/2023 4:17 PM EDT us Yue Juárez ANP LAB BLOOD ORDERABLES Final Resul t [facility] [address] [facility] [place] [address] [phone] * BI Mammogram Screening Tomosynthesis Bilateral (06/01/2023 2:10 PM EDT) Anatomical Region Laterality Modality Breast Bilateral Mammography 06/01/2023 2:10 PM EDT Narrative 06/28/2023 5:48 AM EDT ? [facility] ? [address] ?[place] [id number] ? Mammography Report ? Signed ? Patient: Schroeder Colon,Mariluz ?MR#: M ?? [id number] ? : 1975 ?Acct:[id number] ? Age/Sex: 47 / F ?ADM Date: 06/01/23 ? Loc: HO.MAMMO ? Attending Dr: Kay Pedersen MD ? Ordering Physician: Kay Pedersen MD ?Results: 1Negative ? Date of Service: 06/01/23 ?Follow Up: 1 Year From Orig ?? inal Mammogram ? Procedure(s): MM tomosynthesis screening BI ?? Accession Number(s): [id number] ? cc: Kay Pedersen MD ? EXAMINATION: ?? MM SCREENING DIGITAL BREAST TOMOSYNTHESIS, BILATERAL ? CLINICAL INFORMATION: ? Screening. Asymptomatic. ? COMPARISON: ?? Mammography: This study is compared with prior exams dating back to ?? 2017. ? TECHNIQUE: ?? Digital breast tomosynthesis is performed in both the craniocaudal and ?? mediolateral oblique views along with computer-aided detection (CAD). ?? Synthesized 2D images are generated from the tomosynthesis. ? FINDINGS: ?? There are scattered areas of fibroglandular density (ACR BI-RADS breast ?? composition Category b). ? There are no significant masses, abnormal calcifications, or other ?? abnormalities. ? MM/MM tomosynthesis screening BI ?? IMPRESSION: ?? No mammographic evidence of malignancy. ? ASSESSMENT: ? BI-RADS BI-RADS 1 - Negative ? RECOMMENDATION: ?? Routine annual mammography screening. ? 1 year F/U ? This examination should not preclude the clinical evaluation of a ?? suspicious palpable abnormality. ? This patient's information was entered into a reminder system with a ?? target due date for their next mammogram. ? Dictated By: ?Gita Hand MD ? Signed By: ?<Electronically signed by Gita Hand MD in OV> ? 06/28/23 0544 ? DD/ 1410 ? TD/TT: ? Forming Machine Upkeep Mechanic: ? Procedure Note Clive Wilson - 06/28/2023 [facility] [address] [place] [address] Dr. Ramirez, [place] [id number] Mammography Report Signed Patient: Debo Pisano#: M [id number] : 1975Acct:[id number] Age/Sex: 47 / FADM Date: 06/01/23 Loc: [facility] Attending Dr: Kay Pedersen MD Ordering Physician: Kay Pedersenesults: 1Negative Date of Service: 06/01/23Follow Up: 1 Year From Orig ina Mammogram Procedure(s): MM tomosynthesis screening BI Accession Number(s): [id number] cc: Kay Pedersen MD EXAMINATION: MM SCREENING DIGITAL BREAST TOMOSYNTHESIS, BILATERAL CLINICAL INFORMATION: Screening. Asymptomatic. COMPARISON: Mammography: This study is compared with prior exams dating back to 2018. TECHNIQUE: Digital breast tomosynthesis is performed in both the craniocaudal and mediolateral oblique views along with computer-aided detection (CAD). Synthesized 2D images are generated from the tomosynthesis. FINDINGS: There are scattered areas of fibroglandular density (ACR BI-RADS breast composition Category b). There are no significant masses, abnormal calcifications, or other abnormalities. MM/MM tomosynthesis screening BI IMPRESSION: No mammographic evidence of malignancy. ASSESSMENT: BI-RADS BI-RADS 1 - Negative RECOMMENDATION: Routine annual mammography screening. 1 year F/U This examination should not preclude the clinical evaluation of a suspicious palpable abnormality. This patient's information was entered into a reminder system with a target due date for their next mammogram. Dictated By: Gita Hand MD Signed By: <Electronically signed by Gita Hand MD in OV> 06/28/23 0544 DD/ 1410 TD/TT: Forming Machine Upkeep Mechanic: Kay Pedersen MD IM BI PROCEDURES Final Result * (ABNORMAL) Lipid Panel with Reflex to Direct LDL (05/20/2023 11:00 AM EDT) Triglycerides 224(H) <150 mg/dL [facility] Comment:Desirable Triglyceri de: less than 150 mg/dLBorderline High Triglyceride 150-199 mg/dLHigh Triglyceride: 200-499 mg/dLVery High Triglyceride: greater than or equal to 5OO mg/dL Cholesterol 263(H) <200 mg/dL [facility] Comment:Desirable Cholestero l: less than 200 mg/dLBorderline High Cholesterol: 200-239 mg/dLHigh Cholesterol: greater than 239 mg/dL LDL Cholesterol Calculated 171(H) <100 mg/dL [facility] Comment:Desirable LDL: less than 100 mg/dLNear Optimal/Above Optimal LDL: 110- 129 mg/dLBorderline High LDL: 130-159 mg/dLHigh LDL: 160-189 mg/dLVery High LDL: greater than or equal to 190 mg/dL HDL Cholesterol 48 >40 mg/dL [facility] Comment:Desirable HDL: great er than 40 mg/dL Note: This HDL assay may give artificially low results in patients with liver disease. Blood 05/20/2023 11:0 0 AM EDT 05/20/2023 11:30 AM EDT Kay Pedersen MD LAB BLOOD ORDERABLES Final Resul t Performing Organization Address [facility] Co de Phone Number [facility] [address] [place] [phone] * Hm Colonoscopy (11/09/2022) Colonoscopy Normal Normal 11/09/2022 Jacinto Daniel MD HEALTH MAINTENANCE Final Result * Hepatitis C Antibody Reflex (10/12/2022 11:06 AM EDT) Pathologist [facility] Hepatitis C Antibody Nonreactive Nonreactive [facility] Comment:Antibodies to HCV no t detected; does not exclude early acuteHCV infection. 10/12/2022 11:0 6 AM EDT 10/12/2022 1:20 PM EDT Kay Pedersen MD LAB BLOOD ORDERABLES Final Resul t Performing Organization Address [facility] Co de Phone Number [facility] [address] [place] [phone] * HIV AB/AG (04/18/2019 11:04 AM EST) HIV AG/AB NONREACTIVE [facility] Comment: HIV-1 p24 Ag and/or HIV-1/HIV-2 Ab not detected. ?? A test result that is nonreactive does not exclude the possibility of exposure to or infection with HIV-1 and/or HIV-2. Nonreactive results in this assay for individuals with prior exposure to HIV-1 and/or HIV-2 may be due to antigen and antibody levels that are below the limit of detection of this assay. ?? The [employer] Biology Specialist HIV Ag/Ab Combo assay result and supplemental assay results should be interpreted in conjunction with the patient's clinical presentation, history and other laboratory results. ??If the results are inconsistent with clinical evidence, additional testing is suggested to confirm the result. 04/18/2019 11:0 4 AM EST us Tanner Reyes MD HISTORICAL/NON ORDERABLE LAB S Final Result Performing Organization Address City/State/[facility] Co fl Phone Number [facility] Anywhere [address] from Last 3 Months or Most Recently Relevant to Health Maintenance Insurance [facility] [employer] Care Teams Landscape Manager Relationship Specialty Start Date End Date Kay Pedersen MD [address] [place] [address] PCP - General Family Medicine 09/10/22 Shadi Cabrera, PharmD [address] [place] [address] Pharmacist Internal Medicine 05/31/23
--- OUTSIDE RECORDS SUMMARY | 2024-04-05 16:16 | XMS_ITS | Encounter Summary ---
Author Organization [employer] Address [address] [place] [address] Care Team Providers Care Instructor Kindergarten Name Role Phone Kay Pedersen MD Primary Care Provider [phone] Shadi Cabrera PharmD Unavailable [phone] Encounter Details Date Type Department Care Team ([facility] st Contact Info) Description 06/07/2023 Orders Only [facility] [address] [place], [place] [phone] Kay Pedersen MD [address] [place], [place] [phone] Social History Tobacco Use Types Packs/Day Years Used Date Smoking Tobacco: Former Cigarettes Passive Smoke Exposure: Past Smokeless Tobacco: Never Depression Answer Date Recorded Patient Health Questionnaire-9 Score 8 03/14/2023 Patient Health Questionnaire-9 Score 8 03/14/2023 Last PHQ-9: Questionnaire Data Not on file 0 03/14/2023 Housing Stability Answer Date Recorded What is [...] Date Recorded Patient Health Questionnaire-2 Score 2 03/14/2023 Comments Unknown Sex and Gender Information Value Date Recorded Sex Assigned at Female 01/04/2022 10:32 AM EDT Legal Sex Female 10:32 AM EDT Gender Identity Female 01/04/2022 10:32 AM EDT Sexual Orientation Straight 01/04/2022 10 :32 AM EDT documented as of this encounter Plan of Treatment Not on file documented as of this encounter Goals Goal Patient Goal Type Associated Problems Recent Progress Patient-Stated? Author Blood Pressure < 140/90 Blood Pressure 110/80( 025 10:43 AM EST) No Shadi Cabrera, PharmD documented as of this encounter Visit Diagnoses Not on filedocumented in this encounter Additional Health Concerns Assessment Noted Time PHQ-9 Depression Total Score: 8 03/14/19 24 9:41 AM EST documented as of this encounter Care Teams Instructor Kindergarten Relationship Specialty Start Date End Date Kay Pedersen MD [address] [place] [address] PCP - General Family Medicine 09/10/22 Shadi Cabrera, PharmD [address] [place] [address] Pharmacist Internal Medicine 05/31/23 documented as of this encounter
--- OUTSIDE RECORDS SUMMARY | 2024-04-05 16:16 | XMS_ITS | Encounter Summary ---
Author Organization [employer] Address [address] [place] [address] Care Team Providers Care Cloth Washer Back Tender Name Role Phone Kay Pedersen MD Primary Care Provider [phone] Shadi Cabrera PharmD Unavailable [phone] Reason for Visit * Reason Comments Med Refill Encounter Details Date Type Department Care Team ([facility] st Contact Info) Description 06/30/2023 Refill [facility] [address] [place], [place] [phone] Kay Pedersen MD [address] [place], [place] [phone] Earache Social History Tobacco Use Types Packs/Day Years [...] 025 10:43 AM EST) No Shadi Cabrera, CatalinaD documented as of this encounter Visit Diagnoses Diagnosis Earache Unspecified otalgia documented in this encounter Additional Health Concerns Assessment Noted Time PHQ-9 Depression Total Score: 8 03/14/19 24 9:41 AM EST documented as of this encounter Care Teams Cloth Washer Back Tender Relationship Specialty Start Date End Date Kay Pedersen MD [address] [place] [address] PCP - General Family Medicine 09/10/22 Shadi Cabrera, PharmD [address] [place] [address] Pharmacist Internal Medicine 05/31/23 documented as of this encounter
--- OUTSIDE RECORDS SUMMARY | 2024-04-05 16:16 | XMS_ITS | Encounter Summary ---
Author Organization [employer] Address [address] [place] [address] Care Team Providers Care Prn Physical Therapist Name Role Phone aKy Pedersen MD Primary Care Provider [phone] Shadi Cabrera PharmD Unavailable [phone] Reason for Visit * Reason Comments Med Refill Encounter Details Date Type Department Care Team ([facility] st Contact Info) Description 06/22/2023 Refill [facility] [address] [place], [place] [phone] Kay Pedersen MD [address] [place], [place] [phone] Earache; Moderate persistent asthma without complication Social History Tobacco Use Types Packs/Day Years [...] 10:43 AM EST) No Shadi Cabrera, Solange documented as of this encounter Visit Diagnoses Diagnosis Earache Unspecified otalgia Moderate persistent asthma without complication documented in this encounter Additional Health Concerns Assessment Noted Time PHQ-9 Depression Total Score: 8 03/14/19 24 9:41 AM EST documented as of this encounter Care Teams Prn Physical Therapist Relationship Specialty Start Date End Date Kay Pedersen MD [address] [place] [address] PCP - General Family Medicine 09/10/22 Shadi Cabrera, Solange [address] [place] [address] Pharmacist Internal Medicine 05/31/23 documented as of this encounter
--- OUTSIDE RECORDS SUMMARY | 2024-04-05 16:17 | XMS_ITS | Encounter Summary ---
Author Organization [employer] Address [address] [place] [address] Care Team Providers Care Tobacco Drummer Name Role Phone Kay Pedersen MD Primary Care Provider [phone] Shadi Cabrera PharmD Unavailable [phone] Encounter Details Date Type Department Care Team (Latest Contact Info) Description 03/12/2024 Travel Social History Tobacco Use Types Packs/Day Years [...] Patient Health Questionnaire-2 Score 2 03/14/2023 Comments No Sex and Gender Information Value [...] documented as of this encounter Care Teams Tobacco Drummer Relationship Specialty Start Date End Date Kay Pedersen MD [address] [place] [address] PCP - General Family Medicine 09/10/22 Shadi Cabrera, PharmD [address] [place] [address] Pharmacist Internal Medicine 05/31/23 documented as of this encounter
--- OUTSIDE RECORDS SUMMARY | 2024-04-05 16:17 | XMS_ITS | Encounter Summary ---
Author Organization [employer] Address [address] [place] [address] Care Team Providers Care Sr. Logistics Analyst Name Role Phone Kay Pedersen MD Primary Care Provider [phone] Shadi Cabrera PharmD Unavailable [phone] Encounter Details Date Type Department Care Team ([facility] st Contact Info) Description 10/27/2023 Orders Only [facility] [address] [place], [place] [phone] Kay Pedersen MD [address] [place], [place] [phone] Hypokalemia (Primary Dx) Social History Tobacco Use Types Packs/Day Years [...] Cabrera, PharmD documented as of this encounter Procedures Procedure Name Priority Date/Time Associated Diagnosis Comments POTASSIUM Routine 11/15/2023 11:00 AM EDT Hypokalemia BASIC METABOLIC PANEL Routine 11/01/2023 1:26 PM EDT Hypokalemia documented in this encounter Results * Potassium (11/15/2023 11:00 AM EDT) Potassium 3.3 3.3 - 5.1 mmol/L [facility] Blood Venous blood specimen / Unknown 11/15/2023 11:00 AM EDT 11/15/2023 1:15 PM EDT us Kay Pedersen MD LAB BLOOD ORDERABLES Final Resul t [facility] [address] [place] [phone] * (ABNORMAL) Basic Metabolic Panel (11/01/2023 1:26 PM EDT) Sodium 142 135 - 145 mmol/L [facility] Potassium 3.2(L) 3.3 - 5.1 mmol/L [facility] Chloride 106 96 - 108 mmol/L [facility] Carbon Dioxide 24 22 - 29 mmol/L [facility] Anion Gap 15 12 - 20 [facility] Urea Nitrogen (BUN) 10 9 - 16 mg/dL [facility] Creatinine, Serum 0.80 0.5 - 1.4 mg/dL [facility] Estimated Glomerular Filt Rate >60 [facility] Comment:NOTE: For -Am erican individuals, multiply the result by 1.210.Chronic Kidney Disease: Estimated GFR < 60 mL/min/1.74p8Rhuwly Kidney Disease: Estimated GFR < 15 mL/min/1.73m2 Glucose 164(H) 60 - 115 mg/dL [facility] Calcium 10.1 8.4 - 10.2 mg/dL [facility] Blood Venous blood specimen / Unknown 11/01/2023 1:26 PM EDT 11/01/2023 4:08 PM EDT us Kay Pedersen MD LAB BLOOD ORDERABLES Final Resul t [facility] [address] [place] [address] [phone] documented in this encounter Visit Diagnoses Diagnosis Hypokalemia- Primary Hypopotassemia documented in this encounter Additional Health Concerns Assessment Noted Time PHQ-9 Depression Total Score: 8 03/14/19 24 9:41 AM EST documented as of this encounter Care Teams Sr. Logistics Analyst Relationship Specialty Start Date End Date Kay Pedersen MD [address] [place] [address] PCP - General Family Medicine 09/10/22 Shadi Cabrera, PharmD [address] [place] [address] Pharmacist Internal Medicine 05/31/23 documented as of this encounter
--- OUTSIDE RECORDS SUMMARY | 2024-04-05 16:17 | XMS_ITS | Encounter Summary ---
Author Organization [employer] Address [address] [place] [address] Care Team Providers Care Parts Identification Technician Name Role Phone Kay Pedersen MD Primary Care Provider [phone] Shadi Cabrera PharmD Unavailable [phone] Encounter Details Date Type Department Care Team ([facility] st Contact Info) Description 12/05/2023 Telephone [facility] [address] [place], [place] [phone] Shadi Cabrera, PharmD [address] [place], [place] [phone] Social History Tobacco Use Types Packs/Day Years [...] as of this encounter Visit Diagnoses Diagnosis Hypertension, unspecified type- Primary documented in this encounter Additional Health Concerns Assessment Noted Time PHQ-9 Depression Total Score: 8 03/14/19 24 9:41 AM EST documented as of this encounter Care Teams Parts Identification Technician Relationship Specialty Start Date End Date Kay Pedersen MD [address] [place] [address] PCP - General Family Medicine 09/10/22 Shadi Cabrera, PharmD [address] [place] [address] Pharmacist Internal Medicine 05/31/23 documented as of this encounter
--- OUTSIDE RECORDS SUMMARY | 2024-04-05 16:17 | XMS_ITS | Encounter Summary ---
Author Organization [employer] Address [address] [place] [address] Care Team Providers Care Finish Photographer Name Role Phone Kay Pedersen MD Primary Care Provider [phone] Shadi Cabrera PharmD Unavailable [phone] Reason for Visit * Reason Onset Date Comments chart prep 03/08/2024 Encounter Details Date Type Department Care Team ([facility] st Contact Info) Description 03/08/2024 Telephone [facility] [address] [place], [place] [phone] Lucy Mccarty MA chart prep Social History Tobacco Use Types Packs/Day Years [...] AM EDT documented as of this encounter Miscellaneous Notes * Telephone Encounter - Lucy Mccarty MA - 03/08/2024 1:54 PM EST ..Chart Prep Labs: not applicable Images: not applicable Vaccines due: Covid Due and Hep A Due Referrals: Not Applicable 03/28/24 neurology appt 04/09/24 gastro appt 05/29/24 rheumatology appt 06/06/24 tonny appt 11/15/24 kidney appt Screenings: Not Applicable Overdue care gaps: Sbirt and vitor-7 documented in this encounter Plan of Treatment Not on [...] documented as of this encounter Care Teams Finish Photographer Relationship Specialty Start Date End Date Kay Pedersen MD [address] [place] [address] PCP - General Family Medicine 09/10/22 Shadi Cabrera, Solange [address] [place] [address] Pharmacist Internal Medicine 05/31/23 documented as of this encounter
--- OUTSIDE RECORDS SUMMARY | 2024-04-05 16:17 | XMS_ITS | Encounter Summary ---
Author Organization [employer] [facility] Address [address] [place] [address] Care Team Providers Care Budget Specialist Name Role Phone Kay Pedersen MD Primary Care Provider [phone] Shadi Cabrera PharmD Unavailable [phone] Reason for Referral * Consultation (Routine) - Authorized Specialty Diagnoses / Procedures Referred By Karen alfaro Referred To Contact Pharmacy Diagnoses Hypertension, unspecified type Moderate persistent asthma without complication Kay Pedersen MD [address] [place] [address] Phone: tel: fax: Referral ID Status Reason Start Date Expiration Date Visits Requested Visits Authorized [id number] Authorized Consult and Treat 12/05/2023 12/04/2024 6 6 Encounter Details Date Type Department Care Team ([facility] st Contact Info) Description 12/05/2023 Orders Only [facility] [address] [place] [phone] Kay Pedersen MD [address] [place] [address] Hypertension, unspecified type (Primary Dx); Moderate persistent asthma without complication Social History [...] as of this encounter Plan of Treatment Scheduled Referrals Name Type Priority Associated Diagnoses Orde r Schedule Referral to Pharmacy CDTM Outpatient Referral Routine Hypertension, unspecified type Moderate persistent asthma without complication Ordered: 12/05/2023 documented as of this encounter Goals Goal Patient Goal Type Associated Problems Recent Progress Patient-Stated? Author Blood Pressure < 140/90 Blood Pressure 110/80( 025 10:43 AM EST) No Shadi Cabrera, PharmD documented as of this encounter Visit Diagnoses Diagnosis Hypertension, unspecified type- Primary Moderate persistent asthma without complication documented in this encounter Additional Health Concerns Assessment Noted Time PHQ-9 Depression Total Score: 8 03/14/19 24 9:41 AM EST documented as of this encounter Care Teams Budget Specialist Relationship Specialty Start Date End Date Kay Pedersen MD [address] [place] [phone] PCP - General Family Medicine 7/7/23 Shadi Cabrera, PharmD [address] [place] [phone] Pharmacist Internal Medicine 05/31/23 documented as of this encounter
--- OUTSIDE RECORDS SUMMARY | 2024-04-05 16:17 | XMS_ITS | Encounter Summary ---
Author Organization [employer] Address [address] [place] [address] Care Team Providers Care Medical Editor Name Role Phone Kay Pedersen MD Primary Care Provider [phone] Shadi Cabrera PharmD Unavailable [phone] Encounter Details Date Type Department Care Team (Latest Contact Info) Description 03/12/2024 10:15 AM EST Office Visit [facility] [address] [place], [place] [phone] Kay Pedersen MD [address] [place], [place] [phone] Moderate persistent asthma without complication (Primary Dx); Obstructive sleep apnea syndrome; Hypertension, unspecified type; Metabolic dysfunction-associated steatotic liver disease (MASLD); Anxiety and depression; Hypokalemia; Long-term use of immunosuppressant medication; Seropositive rheumatoid arthritis (CMS/HCC); Encounter for immunization; Cough, unspecified type; Mixed hyperlipidemia; Sinus tachycardia; Dietary counseling; Exercise counseling; Class 2 severe obesity due to excess calories with serious comorbidity and body mass index (BMI) of 35.0 to 35.9 in adult (CMS/HCC); Prediabetes Social History Tobacco Use Types Packs/Day Years [...] AM EDT documented as of this encounter Last Filed Vital Signs Vital Sign Reading [...] Mass Index 35.63 03/12/2024 10:43 AM EST documented in this encounter Progress Notes * Kay Pedersen MD - 03/12/2024 10:15 AM EST Ro Kessler is a 48 y.o. female who has rheumatoid arthritis, hypertension, and MASLD, and patient presents for follow up of chronic conditions. Background: Our last encounter was 11/24/2023. She recovered from sepsis in summer, and restarted leflunomide inA2023. Elevated BP and tachycardiac. Increased amlodipine. Patient reported mild asthma exacerbation. Rx prednisone. Potassium has been always low-borderline. Interval history: CDTM visit with Shadi on 12/07/23. Normal BP, but tachycardiac. Liver US with elastography in Dec 2023. Enlarged and echogenic liver, suggestive of hepatic steatosis. Normal liver stiffness. Holter monitor on 01/18/24 showed sinus tachycardia, 29% of the time HR > 100. Today: The pt describes her mood and overall health have been labile. She reports some high blood pressurereadings from at home, usually above 100 for systolic pressure. She says she changed medications for her arthritis but she doesn't know the name or the medication. She sometimes getting heart palpitations. She reports using her CPAP machine every day. She denies fever but she reports having a dry cough for around two weeks and wants medication to loosen mucus. She says that she does not spend time exercising. She denies any redness in her skin of her legs after her cellulitis in summer. Review of Systems Constitutional: Negative for activity change, appetite change and fever. HENT: Positive for congestion. Respiratory: Positive for cough. Negative for shortness of breath. Cardiovascular: Negative for chest pain. Objective Vitals: 03/12/24 1043 BP: 110/80 Pulse: (!) 112 Resp: 19 Temp: 97.6 ??F (36.4 ??C) TempSrc: Temporal SpO2: 98% Weight: 184 lb 6.4 oz (83.6 kg) Height: 5' 0.32 (1.532 m) Physical Exam Constitutional: General: She is not in acute distress. Appearance: Normal appearance. She is not ill-appearing. HENT: Head: Normocephalic and atraumatic. Mouth/Throat: Mouth: Mucous membranes are moist. Eyes: Extraocular Movements: Extraocular movements intact. Pupils: Pupils are equal, round, and reactive to light. Cardiovascular: Rate and Rhythm: Normal rate and regular rhythm. Heart sounds: No murmur heard. Pulmonary: Effort: Pulmonary effort is normal. No respiratory distress. Breath sounds: Wheezing present. No rhonchi. Skin: General: Skin is warm. Neurological: Mental Status: She is alert. Mental status is at baseline. Psychiatric: Mood and Affect: Mood normal. Results: Lab Results Component Value Date NA 142 11/01/2023 K 3.4 02/22/2024 CL 106 11/01/2023 CO2 24 11/01/2023 BUN 10 11/01/2023 CREATININE 0.80 11/01/2023 CRCLCALCPH 82.5 09/03/2023 EGFR >60 11/01/2023 GLUCOSE 164 (H) 11/01/2023 TOTALBILIRUB 0.7 09/03/2023 AST 64 (H) 09/03/2023 ALT 56 (H) 09/03/2023 TOTPROTEIN 7.1 09/03/2023 ALB 3.6 09/03/2023 ALP 108 09/03/2023 Lab Results Component Value Date TRIG 224 (H) 05/20/2023 CHOL 263 (H) 05/20/2023 LDLCHOLCAL 171 (H) 05/20/2023 HDL 48 05/20/2023 Lab Results Component Value Date HGBA1C 5.9 10/05/2023 Lab Results Component Value Date WBC 13.2 (H) 09/03/2023 HGB 13.6 09/03/2023 HCT 39.1 09/03/2023 PLT 219 09/03/2023 MCV 81.8 09/03/2023 The 10-year ASCVD risk score (Kathie JIMENEZ, et al., 2019) is: 1.9% Values used to calculate the score: Age: 48 years Sex: Female Is Non- : No Diabetic: No Tobacco smoker: No Systolic Blood Pressure: 110 mmHg Is BP treated: Yes HDL Cholesterol: 48 mg/dL Total Cholesterol: 263 mg/dL Lab Results Component Value Date TSH 1.61 05/20/2023 Assessment/Plan Problem List Items Addressed This Visit Anxiety and depression - previously following with Thierry - current medications: Abilify; hydroxyzine; duloxetine - continue current counseling and medications Asthma - Primary - last exacerbation in Nov 2023, treated with prednisone. No antibiotic. - following with [facility] pulmonology, last seen in Jan 2023 - PFT in 2021: FEV1 1.73 liters, 72%. Forced vital capacity 2.37 liters, 80%. Ratio 73. There is a 9% improvement in FEV1 with the administration of bronchodilators. Total lung capacity is normal. Diffusing capacity is normal. - Continue budesonide / formoterol (Symbicort) as maintenance - Continue albuterol as rescue - Continue montelukast Hyperlipidemia - On atorvostatin. and omega 3 - continue working on lifestyle modifications - Last lipid profile 05/20/23 Relevant Orders Lipid Panel with Reflex to Direct LDL Hypertension -Goal BP < 140/90 per JNC-8 and [...] to all of the medications she takes Relevant Orders TSH with Reflex to Free T4 Comprehensive Metabolic Panel Albumin, Random Urine W/Creatinine Obesity Relevant Orders TSH with Reflex to Free T4 Obstructive sleep apnea syndrome - following with sleep medicine clinic, last seen in September 2022 - Continue Auto PAP 5-15 cm H2O Prediabetes - Hx systemic steroid use, more frequent in the past for RA and asthma - the highest A1C 6.1% in 2021 - the most recent A1C 5.9% on 10/05/23 - continue working on lifestyle modifications - optimize chronic disease management and prevent exacerbation Seropositive rheumatoid arthritis (CMS/HCC) - following with [facility] Rheumatology, last seen on 03/04/24 - previously taking methotrexate - currently taking leflunomide - patient did not take leflunomide from 09/03/23 to 11/01/23 due to sepsis and cellulitis - continue current treatment plan Long-term use of immunosuppressant medication - previously on methotrexate. Currently on leflunomide for RA - continue precautionary measure and periodic monitoring Hypokalemia - most recent potassium was normal - optimize asthma management so that she does not use albuterol excessively - continue periodic labs - continue losartan Metabolic dysfunction-associated steatotic liver disease (MASLD) - In a setting of leflunomide treatment for RA - Last liver test: 09/03/23 - Last US / elastography: 12/19/23 enlarged echogenic liver suggestive of hepatic steatosis. Normalliver stiffness. - FIB4 index 1.74 cirrhosis indeterminate - GI: [facility], last seen in Nov 2022 - continue working on lifestyle modifications - continue surveillance study - will vaccinate Hep A and B Relevant Orders Hemoglobin A1c Cough - likely combination of asthma, allergic rhinitis, less likely viral or bacterial infection - Reviewed ER precaution - Reviewed albuterol use - Will prescribe Guaifenesin Sinus tachycardia - unlikely to be POTS or postCOVID problem - normal TSH - Holter monitor on 01/18/24 sinus tachycardia, HR > 100, approximately 29%. Average 91. - possibly due to medication side effects / interaction (aripiprazole, prazosin, albuterol, duloxetine) - continue optimize treatment for asthma / BONNIE to minimize albuterol use - patient reports palpitation, yet no pain. Will consider cardiology evaluation if patient developspain or palpitation worsens Relevant Orders TSH with Reflex to Free T4 Other Visit Diagnoses Encounter for immunization Relevant Orders HEPATITIS A VACCINE ADULT 19 yrs + (Completed) Dietary counseling Exercise counseling Allergies Allergen Reactions Penicillin G Dizziness Tramadol Other reaction(s): Vomiting and sweats Penicillins Dizziness Current Outpatient Medications Medication Instructions albuterol (ProAir HFA) 108 (90 Base) MCG/ACT inhaler inhale 2 puff by inhalation route every 4 - 6 hours as needed albuterol 2.5 mg, Nebulization, Every 4 hours PRN amLODIPine (NORVASC) 10 mg, Oral, Daily ARIPiprazole (ABILIFY) 20 mg, Oral, Every morning atorvastatin (Lipitor) 40 MG tablet TAKE 1 TABLET BY MOUTH AT BEDTIME Blood Pressure Monitor kit Check blood pressure once daily and as needed cetirizine (ZYRTEC) 10 mg, Oral, Daily cloNIDine (CATAPRES) 0.1 mg, Oral, 2 times daily cyclobenzaprine (Flexeril) 10 MG tablet TAKE 1 TABLET BY MOUTH ONCE DAILY 3 HOURS BEFORE BEDTIME DULoxetine (Cymbalta) [address] capsule TAKE 2 CAPSULES BY MOUTH ONCE DAILY IN THE MORNING guaiFENesin (HUMIBID 3) 400 mg, Oral, Every 6 hours PRN hydrOXYzine HCl (ATARAX) 25 mg, Oral, Every 12 hours PRN leflunomide (ARAVA) 10 mg, Oral, Daily losartan (COZAAR) 50 mg, Oral, Daily montelukast (SINGULAIR) 10 mg, Oral, Nightly omega-3 (FISH OIL) 1,000 mg, Oral, Daily, Purchases OTC omeprazole (PriLOSEC) [address] capsule TAKE 2 CAPSULES BY MOUTH ONCE DAILY IN THE MORNING potassium chloride CR (Klor-Con M20) 20 MEQ ER tablet TAKE 1 TABLET BY MOUTH EVERY DAY DIRECTED BY provider prazosin (MINIPRESS) 1 mg, Oral, Nightly SM Fiber Laxative 500 MG tablet TAKE 1 TABLET BY MOUTH TWICE DAILY IN THE MORNING AND IN THE EVENING Symbicort 160-4.5 MCG/ACT inhaler INHALE 2 PUFFS BY MOUTH TWICE DAILY. RINSE MOUTH AFTER USING. Follow-up: 3 months or sooner if any problem arises. Scribe Attestation: Morgan Kim, am serving as a scribe to document services personally performed by Kay Pedersen MD,based on the patient's response to questions by provider and provides statements to me. Physicians Attestation: Kay Kim, have reviewed the information by the scribe, Sasha Flores, for accuracy and agree with its content. documented in this encounter Miscellaneous Notes * Assessment & Plan Note - Kay Pedersen MD - 03/17/2024 6:26 AM ESTAssociated Problem(s): Prediabetes - Hx systemic steroid use, more frequent in the past for RA and asthma - the highest A1C 6.1% in 2021 - the most recent A1C 5.9% on 10/05/23 - continue working on lifestyle modifications - optimize chronic disease management and prevent exacerbation * Assessment & Plan Note - Kay Pedersen MD - 03/17/2024 6:01 AM ESTAssociated Problem(s): Sinus tachycardia - unlikely to be POTS or postCOVID problem - normal TSH - Holter monitor on 01/18/24 sinus tachycardia, HR > 100, approximately 29%. Average 91. - possibly due to medication side effects / interaction (aripiprazole, prazosin, albuterol, duloxetine) - continue optimize treatment for asthma / BONNIE to minimize albuterol use - patient reports palpitation, yet no pain. Will consider cardiology evaluation if patient developspain or palpitation worsens * Assessment & Plan Note - Kay Pedersen MD - 03/17/2024 5:57 AM ESTAssociated Problem(s): Hyperlipidemia - On atorvostatin. and omega 3 - continue working on lifestyle modifications - Last lipid profile 05/20/23 * Assessment & Plan Note - Kay Pedersen MD - 03/17/2024 5:56 AM ESTAssociated Problem(s): Long-term use of immunosuppressant medication - previously on methotrexate. Currently on leflunomide for RA - continue precautionary measure and periodic monitoring * Assessment & Plan Note - Morgan Arita - 03/12/2024 11:07 AM ESTAssociated Problem(s): Cough - likely combination of asthma, allergic rhinitis, less likely viral or bacterial infection - Reviewed ER precaution - Reviewed albuterol use - Will prescribe Guaifenesin * Assessment & Plan Note - Morgan Arita - 03/12/2024 10:57 AM ESTAssociated Problem(s): Obstructive sleep apnea syndrome - following with sleep medicine clinic, last seen in September 2022 - Continue Auto PAP 5-15 cm H2O * Assessment & Plan Note - Morgan Arita - 03/12/2024 10:56 AM ESTAssociated Problem(s): Hypokalemia - most recent potassium was normal - optimize asthma management so that she does not use albuterol excessively - continue periodic labs - continue losartan * Assessment & Plan Note - Kay Pedersen MD - 03/10/2024 6:33 PM ESTAssociated Problem(s): Seropositive rheumatoid arthritis (CMS/HCC) - following with [facility] Rheumatology, last seen on 03/04/24 - previously taking methotrexate - currently taking leflunomide - patient did not take leflunomide from 09/03/23 to 11/01/23 due to sepsis and cellulitis - continue current treatment plan * Assessment & Plan Note - Kay Pedersen MD - 03/10/2024 6:33 PM ESTAssociated Problem(s): Anxiety and depression - previously following with Thierry - current medications: Abilify; hydroxyzine; duloxetine - continue current counseling and medications * Assessment & Plan Note - Kay Pedresen MD - 03/10/2024 6:32 PM ESTAssociated Problem(s): Metabolic dysfunction-associated steatotic liver disease (MASLD) - In a setting of leflunomide treatment for RA - Last liver test: 09/03/23 - Last US / elastography: 12/19/23 enlarged echogenic liver suggestive of hepatic steatosis. Normalliver stiffness. - FIB4 index 1.74 cirrhosis indeterminate - GI: [facility], last seen in Nov 2022 - continue working on lifestyle modifications - continue surveillance study - will vaccinate Hep A and B * Assessment & Plan Note - Kay Pedersen MD - 03/10/2024 6:32 PM ESTAssociated Problem(s): Hypertension -Goal BP < 140/90 per JNC-8 and [...] to all of the medications she takes * Assessment & Plan Note - Kay Pedersen MD - 03/10/2024 6:30 PM ESTAssociated Problem(s): Asthma - last exacerbation in Nov 2023, treated with prednisone. No antibiotic. - following with [facility] pulmonology, last seen in Jan 2023 - PFT in 2021: FEV1 1.73 liters, 72%. Forced vital capacity 2.37 liters, 80%. Ratio 73. There is a 9% improvement in FEV1 with the administration of bronchodilators. Total lung capacity is normal. Diffusing capacity is normal. - Continue budesonide / formoterol (Symbicort) as maintenance - Continue albuterol as rescue - Continue montelukast documented in this encounter Plan of Treatment Scheduled Orders Name Type Priority Associated Diagnoses Orde r Schedule TSH with Reflex to Free T4 Lab Routine Hypertension, unspecified type Sinus tachycardia Class 2 severe obesity due to excess calories with serious comorbidity and body mass index (BMI) of 35.0 to 35.9 in adult ([facility]) Expected: 05/15/2024, Expires: 03/17/2025 Hemoglobin A1c Lab Routine Metabolic dysfunction-associated steatotic liver disease (MASLD) Expected: 05/15/2024, Expires: 03/17/2025 Comprehensive Metabolic Panel Lab Routine Hypertension, unspecified type Expected: 05/15/2024, Expires: 03/17/2025 Lipid Panel with Reflex to Direct LDL Lab Routine Mixed hyperlipidemia Expected: 05/15/2024, Expires: 03/17/2025 Albumin, Random Urine W/Creatinine Lab Routine Hypertension, unspecified type Expected: 05/15/2024, Expires: 03/17/2025 documented as of this encounter Goals Goal Patient Goal Type Associated Problems Recent Progress Patient-Stated? Author Blood Pressure < 140/90 Blood Pressure 110/80( 025 10:43 AM EST) Shadi Paris, PharmD documented as of this encounter Visit Diagnoses Diagnosis Moderate persistent asthma without complication- Primary Obstructive sleep apnea syndrome Obstructive sleep apnea (adult) (pediatric) Hypertension, unspecified type Metabolic dysfunction-associated steatotic liver disease (MASLD) Anxiety and depression Hypokalemia Hypopotassemia Long-term use of immunosuppressant medication Seropositive rheumatoid arthritis ([facility]) Encounter for immunization Cough, unspecified type Mixed hyperlipidemia Sinus tachycardia Other specified cardiac dysrhythmias Dietary counseling Dietary surveillance and counseling Exercise counseling Class 2 severe obesity due to excess calories with serious comorbidity and body mass index (BMI) of 35.0 to 35.9 in adult ([facility]) Prediabetes Other abnormal glucose documented in this encounter Additional Health Concerns Assessment Noted Time PHQ-9 Depression Total Score: 10 025 9:30 AM EST documented as of this encounter Care Teams Medical Editor Relationship Specialty Start Date End Date Kay Pedersen MD [address] [place] [address] PCP - General Family Medicine 09/10/22 Shadi Cabrera, CatalinaD [address] [place] [address] Pharmacist Internal Medicine 05/31/23 documented as of this encounter
--- OUTSIDE RECORDS SUMMARY | 2024-04-05 16:17 | XMS_ITS | Encounter Summary ---
Author Organization [employer] Address [address] [place] [address] Care Team Providers Care Product Assembler Name Role Phone Kay Pedersen MD Primary Care Provider [phone] Shadi Cabrera PharmD Unavailable [phone] Reason for Visit * Reason Comments Med Refill Encounter Details Date Type Department Care Team ([facility] st Contact Info) Description 03/10/2024 Refill [facility] [address] [place], [place] [phone] Kay Pedersen MD [address] [place], [place] [phone] Social History Tobacco Use Types Packs/Day Years [...] documented as of this encounter Care Teams Product Assembler Relationship Specialty Start Date End Date Kay Pedersen MD [address] [place] [address] PCP - General Family Medicine 09/10/22 Shadi Cabrera, CatalinaD [address] [place] [address] Pharmacist Internal Medicine 05/31/23 documented as of this encounter
--- OUTSIDE RECORDS SUMMARY | 2024-04-05 16:17 | XMS_ITS | Encounter Summary ---
Author Organization [employer] Address [address] [place] [address] Care Team Providers Care Social Media Intern Name Role Phone Jasmine Rodriguez Primary Care Provider [phone] Kay Pedersen MD Primary Care Provider [phone] Shadi Cabrera PharmD Unavailable [phone] Encounter Details Date Type Department Care Team (Late st Contact Info) Description 05/24/2022 Orders Only [facility] [address] [place] [address] Iliana Geller LPN Social History Tobacco Use Types Packs/Day Years Used Date Smoking Tobacco: Never Assessed Comments Unknown Sex and Gender Information Value Date Recorded Sex Assigned at Female 01/04/2022 10:32 AM EDT Legal Sex Female 10:32 AM EDT Gender Identity Female 01/04/2022 10:32 AM EDT Sexual Orientation Straight 01/04/2022 10 :32 AM EDT documented as of this encounter Plan of Treatment Not on file documented as of this encounter Visit Diagnoses Not on filedocumented in this encounter Care Teams Social Media Intern Relationship Specialty Start Date End Date Jasmine Rodriguez FNP PCP - General Family Medicine 01/25/22 09/09/22 Kay Pedersen MD [address] [place] [address] PCP - General Family Medicine 09/10/22 Shadi Cabrera, PharmD [address] [place], [place] [phone] Pharmacist Internal Medicine 05/31/23 documented as of this encounter
--- OUTSIDE RECORDS SUMMARY | 2024-04-05 16:17 | XMS_ITS | Encounter Summary ---
Author Organization [employer] [facility] Address [address] [place] [address] Care Team Providers Care Customer Facilities Supervisor Name Role Phone Jasmine Rodriguez Primary Care Provider [phone] Kay Pedersen MD Primary Care Provider [phone] Shadi Cabrera PharmD Unavailable [phone] Encounter Details Date Type Department Care Team (Late st Contact Info) Description 03/25/2022 Orders Only [facility] [address] [place] [address] Megan Munoz LPN Social History Tobacco Use Types Packs/Day [...] on filedocumented in this encounter Care Teams Customer Facilities Supervisor Relationship Specialty Start Date End Date Jasmine Rodriguez FNP PCP - General Family Medicine 01/25/22 09/09/22 Kay Pedersen MD [address] [place] [address] PCP - General Family Medicine 09/10/22 Shadi Cabrera, PharmD [address] [place] [phone] Pharmacist Internal Medicine 05/31/23 documented as of this encounter
== END 2024-04-05 13:31 | disposition home or self-care (01) ==
PROVIDERS: PCP Family Medicine; Visit Provider Physician Assistant Medical
DX: R25.2 Cramp and spasm (principal); G47.33 Obstructive sleep apnea (adult) (pediatric); Z99.89 Dependence on other enabling machines and devices; G25.81 Restless legs syndrome; K21.9 Gastro-esophageal reflux disease without esophagitis
CPT/HCPCS: 99214

== ENCOUNTER → 2024-04-05 12:28 | Outpatient (BNVA) | payer MEDICAID, SELFPAY | PROVIDERS: PCP Family Medicine; Visit Provider Physician Assistant Medical | DX: G47.33 Obstructive sleep apnea (adult) (pediatric) (principal); G25.81 Restless legs syndrome; K21.9 Gastro-esophageal reflux disease without esophagitis; Z99.89 Dependence on other enabling machines and devices | CPT/HCPCS: 99212 ==

== ENCOUNTER 2024-05-30 08:54 | Outpatient (REF) | payer MEDICAID, SELFPAY ==
[2024-05-30 10:26] LABS: MANUAL DIFF FLAG NO
[2024-05-30 10:31] LABS: Basophils Percent Auto 0.4 % (0-2); Eosinophils Absolute Auto 0.2 X10*3/uL (0.0-0.4); Eosinophils Percent Auto 3.2 % (0-4); Hematocrit 42.1 % (37.0-47.0); Hemoglobin 12.9 g/dl (12.0-16.0); Imm Gran Abs Auto 0.03 X10*3/uL (0.00-0.03); Imm Gran Pct Auto 0.4 % (0.0-0.4); Lymphocytes Absolute Auto 2.9 X10*3/uL (1.2-4.9); Lymphocytes Percent Auto 37.8 % (20-40); Mean Corpuscular HGB Conc 30.6 g/dl (31.0-35.0); Mean Corpuscular Hemoglobin 27.1 pg (27.0-33.0); Mean Corpuscular Volume 88.4 fL (80.0-98.0); Mean Platelet Volume 11.2 fL (9.4-12.3); Monocytes Absolute Auto 0.6 X10*3/uL (0.1-1.2); Monocytes Percent Auto 7.2 % (2-11); Neutrophils Absolute Auto 3.9 x10*3/uL (2.0-8.3); Platelet Count 211 X10*3/uL (160-400); Red Blood Count 4.76 X10*6/uL (4.20-5.50); Red Cell Distribution Width 13.7 % (11.0-16.0); White Blood Count 7.6 X10*3/uL (4.8-10.8)
[2024-05-30 10:55] LABS: Alanine Aminotransferase 20 U/L (0-31); Albumin Level 3.8 g/dL (3.5-5.0); Alkaline Phosphatase 110 U/L (39-117); Anion Gap 12 (12-20); Aspartate Amino Transferase 17 U/L (5-31); Bilirubin Total 0.3 mg/dL (0.0-1.0); Blood Urea Nitrogen 13 mg/dL (9-16); C Reactive Protein 1.04 mg/dL (< or = 0.50); Calcium 9.2 mg/dL (8.4-10.2); Carbon Dioxide 27 mmol/L (22-29); Chloride 109 mmol/L (96-108); Estimated Glomerular Filt Rate > 60; Glucose Random 141 mg/dL (60-115); Potassium 3.6 mmol/L (3.3-5.1); Sodium 144 mmol/L (135-145); Total Protein 6.5 g/dL (6.5-8.0)
[2024-05-30 11:28] LABS: Erythrocyte Sedimentation Rate 18 MM/HR (0-20)
== END 2024-05-30 08:55 | disposition home or self-care (01) ==
LOC: HO.10HDL 08:54
PROVIDERS: Visit Provider Student in an Organized Health Care Education/Training Program
DX: M05.9 Rheumatoid arthritis with rheumatoid factor, unspecified (principal)
CPT/HCPCS: 36415; 80053; 85025; 85652; 86140

== ENCOUNTER 2024-05-30 09:13 | Outpatient (REF) | payer MEDICAID, SELFPAY ==
[2024-05-30 11:14] LABS: MANUAL DIFF FLAG NO
[2024-05-30 11:18] LABS: Basophils Percent Auto 0.4 % (0-2); Eosinophils Absolute Auto 0.3 X10*3/uL (0.0-0.4); Eosinophils Percent Auto 3.5 % (0-4); Hematocrit 41.5 % (37.0-47.0); Hemoglobin 13.1 g/dl (12.0-16.0); Imm Gran Abs Auto 0.03 X10*3/uL (0.00-0.03); Imm Gran Pct Auto 0.4 % (0.0-0.4); Lymphocytes Absolute Auto 2.7 X10*3/uL (1.2-4.9); Lymphocytes Percent Auto 36.2 % (20-40); Mean Corpuscular HGB Conc 31.6 g/dl (31.0-35.0); Mean Corpuscular Hemoglobin 27.6 pg (27.0-33.0); Mean Corpuscular Volume 87.4 fL (80.0-98.0); Mean Platelet Volume 11.6 fL (9.4-12.3); Monocytes Absolute Auto 0.5 X10*3/uL (0.1-1.2); Monocytes Percent Auto 6.8 % (2-11); Neutrophils Absolute Auto 3.9 x10*3/uL (2.0-8.3); Neutrophils Percent Auto 52.7 % (45-73); Platelet Count 215 X10*3/uL (160-400); Red Blood Count 4.75 X10*6/uL (4.20-5.50); Red Cell Distribution Width 13.9 % (11.0-16.0); White Blood Count 7.3 X10*3/uL (4.8-10.8)
[2024-05-30 11:34] LABS: Estimated Average Glucose 143 mg/dL; Hemoglobin A1c % 6.6 % (<6.0); Total Hemoglobin (HGBA1C) 3531.5982 umol/L
[2024-05-30 11:54] LABS: Erythrocyte Sedimentation Rate 16 MM/HR (0-20)
[2024-05-30 11:56] LABS: Alanine Aminotransferase 22 U/L (0-31); Albumin Level 3.8 g/dL (3.5-5.0); Alkaline Phosphatase 110 U/L (39-117); Anion Gap 12 (12-20); Aspartate Amino Transferase 19 U/L (5-31); Bilirubin Total 0.4 mg/dL (0.0-1.0); Blood Urea Nitrogen 12 mg/dL (9-16); Calcium 9.2 mg/dL (8.4-10.2); Carbon Dioxide 24 mmol/L (22-29); Chloride 111 mmol/L (96-108); Cholesterol 207 mg/dL (<200); Estimated Glomerular Filt Rate > 60; Glucose Random 142 mg/dL (60-115); HDL Cholesterol 55 mg/dL (>40); LDL Cholesterol Calculated 111 mg/dL (<100); Potassium 3.7 mmol/L (3.3-5.1); Sodium 143 mmol/L (135-145); TSH reflex Free T4 2.15 uIU/mL (0.32-4.0); Total Protein 6.5 g/dL (6.5-8.0); Triglycerides 206 mg/dL (<150)
[2024-05-30 13:33] LABS: Reflex LDLD? No
== END 2024-05-30 09:14 | disposition home or self-care (01) ==
LOC: HO.HHCL 09:13
PROVIDERS: Student in an Organized Health Care Education/Training Program; Visit Provider Family Medicine
DX: E78.2 Mixed hyperlipidemia (principal); I10 Essential (primary) hypertension; R00.0 Tachycardia, unspecified; E66.812 Obesity, class 2; E66.01 Morbid (severe) obesity due to excess calories; K76.0 Fatty (change of) liver, not elsewhere classified; M05.9 Rheumatoid arthritis with rheumatoid factor, unspecified; Z68.35 Body mass index [BMI] 35.0-35.9, adult
CPT/HCPCS: 36415; 80053; 80061; 83036; 84443; 85025; 85652; 86140

== ENCOUNTER 2024-06-01 12:45 | Outpatient (AMB) | payer MEDICAID, SELFPAY ==
--- NOTE | 2024-06-01 12:50 | A.OFFVIS_ITS ---
Vital Signs 06/01/24 12:52 Height 4 ft 11 in Weight 201 lb 11.567 oz BMI 40.7 BP 132/72 Blood Pressure Location Lt brachial Position Sitting Pulse 105 H Pulse Source Pulse Oximeter Pulse Oximetry (%) 96 Oxygen Delivery Method Room Air Intake Visit Reasons: RA Intake Note: Patient presents today for follow up on RA and lab review. She was last seen in the office by Dr. Obregon on 02/23/24. Java Software Developer Required: Yes Java Software Developer Name: [email or web address] [id number] Allergies penicillin G [PENICILLIN G] Allergy (Severe, Verified 06/01/24 12:56) DIZZINESS tramadol Allergy (Severe, Verified 06/01/24 12:56) Vomiting and sweats Medication List - Last Reconciled 06/01/24 by Kerry Gallo MD acetaminophen (Tylenol) 650 mg PO Q6H PRN amlodipine 5 mg See Protocol PO DAILY aripiprazole 20 mg PO QAM atorvastatin 40 mg PO DAILY clonidine HCl 0.1 mg PO DAILY duloxetine 40 mg PO DAILY leflunomide 10 mg PO QAM losartan 50 mg PO QAM magnesium aspart,citrate,oxide 400 mg PO DAILY 30 days MDD 400mg montelukast 10 mg PO DAILY omeprazole 40 mg (2 x 20 mg) PO QAM potassium chloride ER 20 mEq PO BID PRN HPI Comments Details: Patient is a 48-year-old female with GERD, BONNIE on CPAP, asthma, restless legs syndrome, fibromyalgia and seropositive rheumatoid arthritis here today for follow up Interval History: Patient last seen 02/23/[address] Obregon. At that time she was on leflunomide 10 mg which was controlling her arthritis and she had no evidence of synovitis. No changes made to her medications Today patient reports that she continues to do well on the leflunomide 10 mg. Has minimal morning stiffness and resolution of her inflammatory arthritis Rheumatologic History: +RF -ve CCP dx 10/2017 Methotrexate: Both oral and subcutaneous-GI upset Leflunomide: May 2020- off for a period of time due to running out of medication then restarted May 2021-present Current Rheumatology Medication(s): Leflunomide 10 mg daily PFSH Medical History Thoracic degenerative disc disease Back pain Asthma Fibromyalgia Sleep apnea Seropositive rheumatoid arthritis Irritable bowel Arthritis Diarrhea Acid reflux Surgical History History of esophagogastroduodenoscopy (EGD) History of laparoscopic cholecystectomy Hx of tubal ligation History of partial hysterectomy Hx of endoscopy History of colonoscopy Family History Father No problems noted. Mother History of high blood pressure Social History Household Members: None Housing: Apartment Do you presently have visiting nurse or other home services: No Alcohol intake: current Alcohol intake frequency: holidays/special occasions only Alcohol type: beer and wine Patient Tobacco Use Status: Former Tobacco user Tobacco use type: Cigarette e-Cigarette/Vaping Use: Never Used Substance Use Type: Marijuana service: No Current occupational status: disabled Review of Systems Const Details: Review of Systems Constitutional: Denies fever, chills, weight loss ENT: Denies vision changes, eye pain or eye redness, dental caries, dry mouth GI: Denies nausea, vomiting, diarrhea, abdominal pain, change in BM Pulm: Denies SOB, KIDD, hemoptysis, wheezing Cards: Denies chest pain, palpitations Skin: Denies Raynaud's, rash, nail changes, photosensitivity, FREIGHT ASSOCIATE: Denies headaches, weakness, paresthesias, recurrent falls MSK: as per HPI All other systems reviewed and are unremarkable except noted above Physical Exam Vital Signs: Last Vital Signs Pulse 105 H 06/01/24 12:52 BP 132/72 06/01/24 12:52 Pulse Ox 96 06/01/24 12:52 Oxygen Delivery Method Room Air 06/01/24 12:52 BMI result Body Mass Index 40.7 Vital signs reviewed Physical Examination CONSTITUITIONAL Patient alert and cooperative. Well appearing and in no apparent painful distress HEENT Conjunctiva and sclera clear. ?Pupils equal round and reactive to light. ?No lymphadenopathy. ? CHEST/RESPIRATORY SYSTEM Normal respiratory effort and able to speak in complete sentences. ?Clear to auscultation bilaterally. ?No crackles, rales, rhonchi, wheezes heard. CARDIAC SYSTEM Regular rate and rhythm. ?S1 and S2 heard no murmurs. ?Radial pulses intact bilaterally MSK Hands: ?Good application security specialist strength bilaterally. No deformities noted. ?No synovitis noted to the MCPs, PIPs or DIPs. ?No tenderness to palpation of these joints. Wrists: ?Full range of motion at the wrists without pain. ?No tenderness to palpation or synovitis noted to the wrists. Elbows: Full range of motion without pain. No tenderness, weakness, swelling, increased warmth or erythema. Shoulders: Full range of motion without pain. No tenderness, weakness, swelling, increased warmth or erythema. Hips: Full range of motion without pain. Hip bursa: No tenderness to palpation Knees: ?Full range of motion. ?No tenderness, swelling, increased warmth or erythema.?No effusion or crepitations Ankles: Full range of motion. ?No tenderness, swelling, increased warmth or e rythema.? Feet: ?Negative squeeze test. ?No tenderness to palpation or swelling of the MTPs. Tender points:?No tenderness to palpation of the bilateral trapezius, supraspinatus, greater trochanters, anterior costochondral junctions, bilateral gluteal areas, bilateral suboccipital muscle insertions SKIN Skin intact without rashes. Results Reviewed Results Reviewed: Laboratory Tests 05/30/24 05/30/24 09:16 09:36 WBC 7.3 RBC 4.75 Hgb 13.1 Hct 41.5 Plt Count 215 ESR 16 Sodium 143 Potassium 3.7 Chloride 111 H Carbon Dioxide 24 BUN 12 Creatinine 0.69 AST 19 ALT 22 Alkaline Phosphatase 110 C-Reactive Protein 1.00 H Total Protein 6.5 Infectious serologies 11/09/23 12:31 Hepatitis A IgM Ab Nonreactive Hep Bs Antigen Negative Hep Bs Antibody NONREACTIVE Hep B Core Total Ab Nonreactive Hepatitis C Ab (EIA) Nonreactive TB Test (T-Spot) Com Negative DEXA 05/2023 FINDINGS: LEFT FEMUR, NECK: BMD 0.922 g/cm2, Z-score -0.5, T-score -0.8, normal. LEFT FEMUR, TOTAL: BMD 0.974 g/cm2, Z-score -0.3, T-score -0.3, normal. AP SPINE L1-L4: BMD 1.032 g/cm2, Z-score -1.6, T-score -1.2, osteopenia. 10-YEAR FRACTURE RISK PREDICTION, FRAX: Major osteoporotic fracture (clinical spine, forearm, hip or shoulder) 2.1%. Hip fracture 0.1%. Assessment & Plan Assessment & Plan (1) Seropositive rheumatoid arthritis: Comment: +RF -ve CCP dx 10/2017 Methotrexate: Both oral and subcutaneous-GI upset Leflunomide: May 2020- off for a period of time due to running out of medication then restarted May 2021-present Code(s): M05.9 - Rheumatoid arthritis with rheumatoid factor, unspecified Category: Medical Plan: #Seropositive RA Patient is a 48-year-old female with seropositive rheumatoid arthritis here today for follow up. Patient currently in remission on leflunomide 10 mg daily Plan - Lefunomide 10mg daily - RTC 4 months - Labs before visit: CBC, CMP, ESR, CRP, hepatitis panel, T spot (2) Osteopenia: Code(s): M85.80 - Other specified disorders of bone density and structure, unspecified site Qualifiers: Osteopenia location: lumbar spine Qualified Code(s): M85.88 - Other specified disorders of bone density and structure, other site Plan: #Osteopenia Patient with osteopenia of the AP spine based on DEXA done 05/2023 Low FRAX index Follow up with repeat DEXA in 2025 Plan - Ensure vitamin D > 35 - Encouraged weight bearing exercises - Check Vit D at next blood draw (3) Encounter for monitoring leflunomide therapy: Code(s): Z51.81 - Encounter for therapeutic drug level monitoring; Z79.69 - correction (current) use of other immunomodulators and immunosuppressants Plan: #Long-term leflunomide Discussed with patient the benefits and risks of leflunomide for managing the rheumatic condition Benefits include: - Reduced pain, maintenance of remission and reduction of flares Risks include: - GI upset especially diarrhea, skin rash, cytopenias, hepatotoxicity, weight loss, neuropathy Leflunomide is highly teratogenic. ?Has a very long half-life. ?Needs cholestyramine washout if there is desire for Initiation: ?CBC, BMP, LFTs, hepatitis-B and C serologies every 2-4 weeks for 3 months Monitoring: ?CBC, BMP, LFTs, hepatitis B and C serologies Plan I spent 32 minutes reviewing the record and labs, taking a history, examining the patient, discussing the treatment plan, ordering diagnostic work up and documenting in the medical record Orders: Orders Complete Blood Count Auto Diff 4 Months M05.9 - Rheumatoid arthritis with rheumatoid factor, unspecified Comprehensive Met. Panel 4 Months M05.9 - Rheumatoid arthritis with rheumatoid factor, unspecified Hepatitis A,B,C Profile 4 Months M05.9 - Rheumatoid arthritis with rheumatoid factor, unspecified Vitamin D 25-OH (D2 and D3) 4 Months E55.9 - Vitamin D deficiency, unspecified C Reactive Protein 4 Months M05.9 - Rheumatoid arthritis with rheumatoid factor, unspecified Erythrocyte Sedimentation Rate 4 Months M05.9 - Rheumatoid arthritis with rheumatoid factor, unspecified T Spot TB 4 Months M05.9 - Rheumatoid arthritis with rheumatoid factor, unspecified Coding Level of Care Code Est Pt Level 4 (52883) Complex EM visit Add On G2211 Diagnoses Seropositive rheumatoid arthritis M05.9 Osteopenia of lumbar spine M85.88 Osteopenia location: lumbar spine Encounter for monitoring leflunomide therapy Z51.81; Z79.69
[2024-06-01 12:52] VITALS: BP 132/72; PULSE 105; O2SAT 96; BMI 40.7
== END 2024-06-01 13:32 | disposition home or self-care (01) ==
LOC: HO.RHE 12:46
PROVIDERS: PCP Family Medicine; Visit Provider Student in an Organized Health Care Education/Training Program
DX: M05.79 Rheumatoid arthritis with rheumatoid factor of multiple sites without organ or systems involvement (principal); M85.88 Other specified disorders of bone density and structure, other site; Z51.81 Encounter for therapeutic drug level monitoring; Z79.69 Long term (current) use of other immunomodulators and immunosuppressants
CPT/HCPCS: 99214

== ENCOUNTER → 2024-06-01 12:45 | Outpatient (BNVA) | payer MEDICAID, SELFPAY | PROVIDERS: PCP Family Medicine; Visit Provider Student in an Organized Health Care Education/Training Program | DX: M05.9 Rheumatoid arthritis with rheumatoid factor, unspecified (principal); M85.88 Other specified disorders of bone density and structure, other site; Z51.81 Encounter for therapeutic drug level monitoring; Z79.69 Long term (current) use of other immunomodulators and immunosuppressants | CPT/HCPCS: 99212 ==

== ENCOUNTER 2024-07-04 12:15 | Emergency (ER) | payer MEDICAID, SELFPAY ==
--- NOTE | ~2024-07-04 | XR_ITS ---
EXAMINATION: XR CHEST CLINICAL INFORMATION: chest discomfort COMPARISON: None available. TECHNIQUE: 2 views of the chest were obtained. FINDINGS: Patchy opacity, right perihilar region. No pleural effusion. No pneumothorax. Cardiomediastinal silhouette size is normal. Multilevel thoracic spondylosis. Vascular clips right upper quadrant abdomen. XR/XR chest 2V IMPRESSION: Concerning acute airspace disease, right middle lung lobe in the correct clinical settings. Electronically signed by: Chacho Kovacs MD 07/04/2024 12:53 PM EDT
--- NOTE | ~2024-07-04 | US_ITS ---
EXAMINATION: US TRIPLEX LOWER EXTREMITY, BILATERAL CLINICAL INFORMATION: Edema, lower extremities. COMPARISON: None available. TECHNIQUE: Color-flow triplex imaging with spectral analysis and compression Doppler were performed on the bilateral lower extremities. FINDINGS: Respiratory variation, normal compression and augmented flow are present throughout the interrogated common femoral vein, superficial femoral vein, profunda femoral vein, popliteal vein and midcalf peroneal and posterior tibial venous segments. There is no Rivera's cyst. US/US venous duplex LE BI IMPRESSION: No acute deep venous thrombosis involving the bilateral lower extremities. Negative for DVT. Electronically signed by: Chacho Kovacs MD 07/04/2024 03:12 PM EDT
[2024-07-04 12:37] VITALS: BP 178/94; PULSE 103; RESP 19; TEMP 36.6; O2SAT 96; BMI 41.0
--- NOTE | 2024-07-04 12:37 | ED_ITS ---
HPI - General Adult General Chief complaint: General Medical Stated complaint: Swelling both legs Time Seen by Provider: 07/04/24 13:28 Source: patient, RN notes reviewed and old records reviewed Mode of arrival: ambulatory Limitations: language barrier History of Present Illness ED Provider: Giancarlo Sandra PA-C HPI narrative: 49 yo Central African speaking female with history of asthma, recently started on new biologic injection 06/11, recently traveled from [place] on 06/12 who presents to the ER for evaluation of bilateral lower leg swelling that started on 06/13. She reports the swelling is in her lower legs only. It has been the same for the last couple of weeks. Her legs feel heavy and uncomfortable. She has had some chest discomfort and coughing since her trip to [place] as well. No phlegm production, fevers, chest pain at rest. No dizziness, lightheadedness, hemoptysis, N/V/D or abdominal pain. MD complaint: leg swelling, chest discomfort Onset (ago): week(s) Location: chest, left, right and lower extremity Radiation: non-radiation Severity: moderate Quality: aching Pain Consistency: intermittent Relieving factors: none Associated symptoms: cough Treatments prior to arrival: none Related Data Home Medications ?Medication ?Instructions ?Recorded ?Confirmed acetaminophen 325 mg tablet 650 mg PO Q6H PRN Pain 09/03/23 06/01/24 (Tylenol) aripiprazole 20 mg tablet 20 mg PO QAM 11/17/23 06/01/24 atorvastatin 40 mg tablet 40 mg PO DAILY 11/17/23 06/01/24 clonidine HCl 0.1 mg tablet 0.1 mg PO DAILY 11/17/23 06/01/24 duloxetine 20 mg capsule,delayed 40 mg PO DAILY 11/17/23 06/01/24 release losartan 50 mg tablet 50 mg PO QAM 11/17/23 06/01/24 montelukast 10 mg tablet 10 mg PO DAILY 11/17/23 06/01/24 potassium chloride 20 mEq 20 meq PO BID PRN 11/17/23 06/01/24 tablet,extended release(part/cryst) Previous Rx's ?Medication ?Instructions ?Recorded amlodipine 5 mg tablet 5 mg PO DAILY #90 tabs 09/10/23 leflunomide 10 mg tablet 10 mg PO QAM #90 tabs 01/26/24 magnesium aspart,citrate,oxide 400 mg PO DAILY muslce cramps 30 04/05/24 days #30 caps omeprazole 20 mg capsule,delayed 40 mg (2 x 20 mg) PO QAM #30 caps 06/08/24 release azithromycin 250 mg tablet See Rx Instructions PO .COMPLEX #6 07/04/24 (Zithromax Z-Cristian) tabs Allergies Allergy/AdvReac Type Severity Reaction Status Date / Time penicillin G [PENICILLIN G] Allergy Severe DIZZINESS Verified 07/04/24 12:40 tramadol Allergy Severe Vomiting Verified 07/04/24 12:40 and sweats Review of Systems 2 Review of Systems: Yes all other systems are reviewed and are negative [facility] Past Medical History Medical History Thoracic degenerative disc disease Back pain Asthma Fibromyalgia Sleep apnea Seropositive rheumatoid arthritis Irritable bowel Arthritis Diarrhea Acid reflux Surgical History History of esophagogastroduodenoscopy (EGD) History of laparoscopic cholecystectomy Hx of tubal ligation History of partial hysterectomy Hx of endoscopy History of colonoscopy Family History Family History Father No problems noted. Mother History of high blood pressure Social History Social History Household Members: None Housing: Apartment Do you presently have visiting nurse or other home services: No Alcohol intake: current Alcohol intake frequency: holidays/special occasions only Alcohol type: beer and wine Patient Tobacco Use Status: Former Tobacco user Tobacco use type: Cigarette Smoked in Last 30 Days: No e-Cigarette/Vaping Use: Never Used Use of substances other than those prescribed or required for medical reasons: No Substance Use Type: Marijuana Advance Directives: Yes Advance Directives on File: Yes Advance Directives Date on File: 09/12/23 Do you have a plan to hurt others: No Plan service: No Current occupational status: disabled Physical Exam ED Vital Signs: Vital Signs - 24 hr 07/04/24 12:37 07/04/24 15:22 07/04/24 16:00 Temperature 98 F 98.9 F 98.9 F Pulse Rate 103 H 101 H 101 H Respiratory Rate 19 18 18 Blood Pressure 178/94 H 151/88 H 151/88 H Pulse Oximetry 96 99 99 Oxygen Delivery Method Room Air Room Air Room Air 07/04/24 16:12 Temperature 98.9 F Pulse Rate 101 H Respiratory Rate 18 Blood Pressure 151/88 H Pulse Oximetry 99 Oxygen Delivery Method Room Air BMI result Body Mass Index 41.0 Appearance: Alert. Oriented X3. No acute distress. Head: normocephalic, atraumatic. Eyes: Pupils equal, round and reactive to light. ENT: Pharynx normal. No tonsillar swelling or exudate. Neck: Normal inspection. Neck supple. CVS: Normal heart rate and rhythm. Pulses normal. Respiratory: No respiratory distress. Breath sounds diminished at right base, no wheezing, no rhonchi Abdomen: Soft and nontender. +BS x4 Skin: Skin warm and dry. Normal skin color. Normal skin turgor. No rashes. Extremities: +non-pitting lower extremity edema. no popliteal tenderness or fullness. No joint swelling. NV intact distally. compartments soft and compressible Neuro/psych: Oriented X 3. No motor deficit. No sensory deficit. CN II-XII intact. Normal speech and cognition. Course Course Course Narrative: This is a Rapid Medical Examination (RME) performed by Christian Levine PA-C in triage. Full HPI, ROS, assessment and treatment plan per primary provider in the Main ED. 07/04/24 1238 YESICA Dewitt Hx: 46 yo mozambican speaking female hx of BONNIE on CPAP, asthma, RA, fibromyalgia here for eval of b/l LE swelling which began on 06/11/24 after arriving in [place]. reports general chest discomfort x2-3 days. no SOB. no hx similar. no hormone use. PE/vitals: no calf tenderness b/l. Nonpitting edema bilaterally. Plan: labs, ekg, cxr - will defer imaging to primary provider Medications Administered Discontinued Medications Generic Name Dose Route Start Last Admin Trade Name Freq PRN Reason Stop Dose Admin Potassium Chloride 40 meq 07/04/24 13:44 07/04/24 14:06 Potassium Chloride Er 20 Meq Tab.Er.Prt PO 07/04/24 13:45 40 meq ONCE ONE Administration Medical Decision Making Medical Decision Making MDM Narrative: 49 yo female with history of asthma, fibromyalgia, RA, BONNIE who presents to the ER for evaluation of lower leg swelling for the last few weeks after flying to [place] and starting a new biologic for her asthma. LE swelling is a known side effect per her report the doctor told her. she has had chest discomfort for a few days, none now. no SOB LE dopplers negative for DVT. CXR with right perihilar/RML fullness that could represent PNA. given her recent chest discomfort and cough will treat empirically w/ zpack. no leukocytosis or fever. labs showing negative trop and BNP low suspicion for PE given negative dopplers. stable for d/c home. she will f/u with her literacy coordinator and PCP. workforce staffing advisor used to discuss dx and tx Differential Diagnosis Differential Diagnoses: The differential diagnosis associated with the presentation includes DVT, PE, lymphedema, medication side effect, PNA, asthma, CHF Admission/Observation Consideration of admission/observation: Escalation of care including admission/observation considered Lab Data MDM Lab Attestation statement: I reviewed the patient's lab results. no leukocytosis 07/04/24 13:11 07/04/24 13:11 Labs: Lab Results 07/04/24 07/04/24 Range/Units 13:02 13:11 WBC 7.7 (4.8-10.8) X10*3/uL RBC 5.07 (4.20-5.50) X10*6/uL Hgb 14.1 (12.0-16.0) g/dl Hct 43.7 (37.0-47.0) % MCV 86.2 (80.0-98.0) fL MCH 27.8 (27.0-33.0) pg MCHC 32.3 (31.0-35.0) g/dl RDW 13.8 (11.0-16.0) % Plt Count 266 (160-400) X10*3/uL MPV 10.5 (9.4-12.3) fL Immature Gran % (Auto) 0.6 H (0.0-0.4) % Neut % (Auto) 50.0 (45-73) % Lymph % (Auto) 30.9 (20-40) % Mingo % (Auto) 5.7 (2-11) % Eos % (Auto) 11.6 H (0-4) % Baso % (Auto) 1.2 (0-2) % Lymph # (Auto) 2.4 (1.2-4.9) X10*3/uL Mingo # (Auto) 0.4 (0.1-1.2) X10*3/uL Eos # (Auto) 0.9 H (0.0-0.4) X10*3/uL Baso # (Auto) 0.1 (0.0-0.2) X10*3/uL Abs Immat Gran (auto) 0.05 H (0.00-0.03) X10*3/uL Absolute Neuts (auto) 3.9 (2.0-8.3) x10*3/uL Absolute Nucleated RBC 0.000 (0.0-0.012) X10*3/uL Nucleated RBC % (auto) 0.0 (0.0-0.2) /100WBC Hold Purple Top SEE NOTE PT 10.6 L (10.9-12.4) SEC INR 0.9 (0.9-1.1) Sodium 142 (135-145) mmol/L Potassium 3.2 L (3.3-5.1) mmol/L Chloride 108 (96-108) mmol/L Carbon Dioxide 24 (22-29) mmol/L Anion Gap 13 (12-20) BUN 12 (9-16) mg/dL Creatinine 0.69 (0.5-1.4) mg/dL Estim Creat Clear Calc 97.6 Estimated GFR > 60 Random Glucose 109 (60-115) mg/dL Calcium 9.4 (8.4-10.2) mg/dL Magnesium 1.8 (1.6-2.6) mg/dL Total Bilirubin 0.4 (0.0-1.0) mg/dL AST 29 (5-31) U/L ALT 24 (0-31) U/L Alkaline Phosphatase 141 H (39-117) U/L Troponin I High Sens < 2.7 (<3.5-17.0) ng/L B-Natriuretic Peptide < 10 (<100) pg/mL Total Protein 7.0 (6.5-8.0) g/dL Albumin 4.1 (3.5-5.0) g/dL Influenza Type A (PCR) NEGATIVE (Negative) Influenza Type B (PCR) NEGATIVE (Negative) RSV RNA Qual (PCR) NEGATIVE (Negative) SARS-CoV-2 RNA (RT-PCR) NEGATIVE (Negative) Independent Interpretation I performed an independent interpretation of an: EKG and Ultrasound Interpretation: no DVT on U/S CXR with perihilar fullness/RML infiltrate, penetration poor EKG with normal sinus rhythm, HR 100 bpm, normal RI interval, noraml QTc Radiology Impression Discussion of test interpretation with radiology: I have reviewed the radiologist's reading. Independent Historian Clinical information obtained from an independent historian. History obtained from or confirmed by: Spouse External Record Review External record reviewed: Outpatient record, Prior outpatient labs and Prior outpatient radiology Prescription Management I considered prescription management with: Pain Medication and Other (considered anticoagulant but dopplers negative) Chronic Conditions Patient?s care impacted by: Other (asthma, obesity) Critical Care Time Critical Care Time Critical Care Time: No Discharge Plan Discharge Clinical Impression: Swelling of both lower extremities Pneumonia Qualifiers: Pneumonia type: due to unspecified organism Laterality: right Lung location: m iddle lobe of lung Qualified Code(s): J18.9 - Pneumonia, unspecified organism Patient Disposition: Home, Self-Care Instructions: Leg Edema (ED), Pneumonia (ED) Additional Instructions: your ultrasound was negative for blood clot your chest x-ray showed possible right sided pneumonia Take the prescribed antibiotics as directed, complete the entire course and do not miss any doses Follow up with your pulmonary doctor and your primary care doctor you will need repeat chest imaging to make sure it resolves. elevate your legs when possible recommend compression stockings If you develop new or worsening symptoms call 911 or come back to the ER for further evaluation. Prescriptions: New azithromycin [Zithromax Z-Cristian] 250 mg tablet See Rx Instructions .ROUTE .COMPLEX Qty: 6 0RF Rx Instructions: take 500 mg today (day 1), then 250 mg for 4 days (days 2-5) No Action leflunomide 10 mg tablet 10 mg PO QAM Qty: 90 0RF omeprazole 20 mg capsule,delayed release(DR/EC) 40 mg PO QAM Qty: 30 2RF acetaminophen [Tylenol] 325 mg Tablet 650 mg PO Q6H PRN (Reason: Pain) amlodipine 5 mg Tablet 5 mg PO DAILY Qty: 90 0RF Protocol: Hold for SBP< HOLD for SBP < : 90 aripiprazole 20 mg tablet 20 mg PO QAM atorvastatin 40 mg tablet 40 mg PO DAILY clonidine HCl 0.1 mg tablet 0.1 mg PO DAILY duloxetine 20 mg capsule,delayed release(DR/EC) 40 mg PO DAILY losartan 50 mg tablet 50 mg PO QAM montelukast 10 mg tablet 10 mg PO DAILY potassium chloride 20 mEq tablet,ER particles/crystals 20 meq PO BID PRN magnesium aspart,citrate,oxide 400 mg magnesium capsule 400 mg PO DAILY MDD 400mg 30 Days Qty: 30 3RF Rx Instructions: Take one capsule daily 400mg PO at bedtime. Referrals: Kay Pedersen MD [Primary Care Provider] - Interventions: ED Discharge Assessment Last Done: 07/04/24 16:12 Discharge Date/Time: 07/04/24 16:13 Print Language: [place]
--- NOTE | 2024-07-04 12:40 | ECG_ITS ---
Test Reason : Chest Discomfort Blood Pressure : */* mmHG Vent. Rate : 100 BPM Atrial Rate : 100 BPM P-R Int : 148 ms QRS Dur : 72 ms QT Int : 344 ms P-R-T Axes : 28 60 -7 degrees QTcB Int : 443 ms Normal sinus rhythm ST & T wave abnormality, consider inferior ischemia Abnormal ECG When compared with ECG of 05-Sep-2023 14:24, Premature ventricular complexes are no longer Present Nonspecific T wave abnormality now evident in Anterior leads Referred By: Kamille Levine Electronically Signed By: Armand Quevedo
[2024-07-04 13:20] LABS: Basophils Absolute Auto 0.1 X10*3/uL (0.0-0.2); Basophils Percent Auto 1.2 % (0-2); Eosinophils Absolute Auto 0.9 X10*3/uL (0.0-0.4); Eosinophils Percent Auto 11.6 % (0-4); Hematocrit 43.7 % (37.0-47.0); Hemoglobin 14.1 g/dl (12.0-16.0); Imm Gran Abs Auto 0.05 X10*3/uL (0.00-0.03); Imm Gran Pct Auto 0.6 % (0.0-0.4); Lymphocytes Absolute Auto 2.4 X10*3/uL (1.2-4.9); Lymphocytes Percent Auto 30.9 % (20-40); MANUAL DIFF FLAG NO; Mean Corpuscular HGB Conc 32.3 g/dl (31.0-35.0); Mean Corpuscular Hemoglobin 27.8 pg (27.0-33.0); Mean Corpuscular Volume 86.2 fL (80.0-98.0); Mean Platelet Volume 10.5 fL (9.4-12.3); Monocytes Absolute Auto 0.4 X10*3/uL (0.1-1.2); Monocytes Percent Auto 5.7 % (2-11); Neutrophils Absolute Auto 3.9 x10*3/uL (2.0-8.3); Platelet Count 266 X10*3/uL (160-400); Red Blood Count 5.07 X10*6/uL (4.20-5.50); Red Cell Distribution Width 13.8 % (11.0-16.0); White Blood Count 7.7 X10*3/uL (4.8-10.8)
[2024-07-04 13:32] LABS: INTERNATIONAL NORM RATIO 0.9 (0.9-1.1); Prothrombin Time 10.6 SEC (10.9-12.4)
[2024-07-04 13:35] LABS: Alanine Aminotransferase 24 U/L (0-31); Albumin Level 4.1 g/dL (3.5-5.0); Alkaline Phosphatase 141 U/L (39-117); Anion Gap 13 (12-20); Aspartate Amino Transferase 29 U/L (5-31); Bilirubin Total 0.4 mg/dL (0.0-1.0); Blood Urea Nitrogen 12 mg/dL (9-16); Calcium 9.4 mg/dL (8.4-10.2); Carbon Dioxide 24 mmol/L (22-29); Chloride 108 mmol/L (96-108); Creatinine Clr Calc Pharmacy 97.6; Estimated Glomerular Filt Rate > 60; Glucose Random 109 mg/dL (60-115); Magnesium 1.8 mg/dL (1.6-2.6); Potassium 3.2 mmol/L (3.3-5.1); Sodium 142 mmol/L (135-145)
[2024-07-04 13:41] LABS: B Type Natriuretic Peptide < 10 pg/mL (<100)
[2024-07-04 13:42] LABS: Troponin-I High Sensitivity < 2.7 ng/L (<3.5-17.0)
[2024-07-04 13:55] LABS: Influenza A PCR NEGATIVE (Negative); Influenza B PCR NEGATIVE (Negative); Resp Syncy Virus RNA Qual PCR NEGATIVE (Negative); SARS COV2 PCR INHOUSE NEGATIVE (Negative)
[2024-07-04] MEDS: Potassium Chloride ER 20 MEQ TAB.ER.PRT 40 MEQ PO (14:06)
--- NOTE | 2024-07-04 14:09 | PC.NURSE ---
pt reports that she has had increased lower extrem swelling from knee down since returning from [place] 2 days ago. She states that she usually has some edema in lower extrem but it got worse in the past two days. she states small amount of pain. legs have some non-pitting edema, pulses palpable. hx asthma, HTN
--- OUTSIDE RECORDS SUMMARY | 2024-07-04 15:17 | XMS_ITS | Encounter Summary ---
Author Organization [facility] Address [address] [facility] 7t [place] [address] Care Team Providers Care Tipping Machine Operator Automatic Name Role Phone Jasmine Rodriguez Marian CONDE Primary Care Provider [phone]- [phone] Kay Pedersen MD Primary Care Provider [phone] Shadi Cabrera PharmD Unavailable [phone] Garrett Gilbert MD Unavailable [phone] Encounter Details Date Type Department Care Team (Late st Contact Info) Description 03/25/2022 Orders Only [facility] MEDICINE [address] [place] [address] Megan Munoz LPN Social History Tobacco Use Types Packs/Day Years Used Date Smoking Tobacco: Never Assessed Comments Unknown Sex and Gender Information Value Date Recorded Sex Assigned at Female 01/04/2022 10:32 AM EDT Legal Sex Female 10:32 AM EDT Gender Identity Female 01/04/2022 10:32 AM EDT Sexual Orientation Straight 01/04/2022 10 :32 AM EDT documented as of this encounter Plan of Treatment Upcoming Encounters Date Type Department Care Team (Late st Contact Info) Description 08/16/2024 1:00 PM EDT Office Visit [facility] MEDICINE [address] [place] [address] Marifer Pearson CNM [address] [place], [place] [phone] 09/10/2024 1:45 PM EDT Office Visit [facility] MEDICINE [address] [place] [address] [phone] Kay Pedersen MD [address] [place], [place] [phone] documented as of this encounter Visit Diagnoses Not on filedocumented in this encounter Care Teams Tipping Machine Operator Automatic Relationship Specialty Start Date End Date Jasmine Rodriguez FNP PCP - General Family Medicine 01/25/22 09/09/22 Kay Pedersen MD [address] [place] [address] PCP - General Family Medicine 09/10/22 Shadi Cabrera PharmD [address] [place] [address] Pharmacist Internal Medicine 05/31/23 Garrett Gilbert MD [address] [place] [address] Drive [address] [place] [address] Nephrology 06/18/24 Adryan Werner MD Resolution Specialist 06/18/24 Kerry Gallo Rheumatology 06/18/24 documented as of this encounter
--- OUTSIDE RECORDS SUMMARY | 2024-07-04 15:17 | XMS_ITS | Encounter Summary ---
Author Organization [facility] Address [address] [facility] 7t [place] [address] Care Team Providers Care Consulting Business Developer Name Role Phone Kay Pedersen MD Primary Care Provider [phone] Shadi Cabrera PharmD Unavailable [phone] Garrett Gilbert MD Unavailable [phone] Reason for Referral * Consultation (Routine) - Authorized Specialty Diagnoses / Procedures Referred By Contac t Referred To Contact Pharmacy Diagnoses Hypertension, unspecified type Moderate persistent asthma without complication Kay Pedersen MD [address] [place] [address] Phone: tel: fax: Referral ID Status Reason Start Date Expiration Date Visits Requested Visits Authorized [id number] Authorized Consult and Treat 12/05/2023 12/04/2024 6 6 Encounter Details Date Type Department Care Team (Late st Contact Info) Description 12/05/2023 Orders Only [facility] MEDICINE [address] [place], [place] [phone] Kay Pedersen MD [address] [place], [place] [phone] Hypertension, unspecified type (Primary Dx); Moderate persistent [...] Description 08/16/2024 1:00 PM EDT Office Visit [facility] MEDICINE [address] [place] [address] Marifer Pearson CNM [address] [place] [address] 09/10/2024 1:45 PM EDT Office Visit [facility] MEDICINE [address] [place] [address] Kay Pedersen MD [address] [place] [address] Scheduled Referrals Name Type Priority Associated Diagnoses Orde r Schedule Referral to Pharmacy CDTM Outpatient Referral Routine Hypertension, unspecified type Moderate persistent asthma without complication Ordered: 12/05/2023 documented as of this encounter Goals Goal Patient Goal Type Associated Problems Recent Progress Patient-Stated? Author Blood Pressure < 140/90 Blood Pressure 132/80( 025 2:10 PM EDT) No Shadi Cabrera, PharmD documented as of this encounter Visit Diagnoses Diagnosis Hypertension, unspecified type- Primary Moderate persistent asthma without complication documented in this encounter Additional Health Concerns Assessment Noted Time PHQ-9 Depression Total Score: 8 03/14/19 24 9:41 AM EST documented as of this encounter Care Teams Consulting Business Developer Relationship Specialty Start Date End Date Kay Pedersen MD [address] [place] [address] PCP - General Family Medicine 09/10/22 Shadi Cabrera, PharmD [address] [place] [address] Pharmacist Internal Medicine 05/31/23 Garrett Gilbert MD [address] [place] [address] Nephrology 06/18/24 Adryan Werner MD Clinical Research Administrator 06/18/24 Kerry Gallo Rheumatology 06/18/24 documented as of this encounter
--- OUTSIDE RECORDS SUMMARY | 2024-07-04 15:17 | XMS_ITS | Encounter Summary ---
Author Organization [employer] Address [address] [address] [facility] [address] 7t [place] [address] Care Team Providers Care Developmental Behavioral Physician Name Role Phone Kay Pedersen MD Primary Care Provider [phone] Shadi Cabrera PharmD Unavailable [phone] Garrett Gilbert MD Unavailable [phone] Reason for Visit * Reason Onset Date Comments Nurse Triage 07/04/2024 Encounter Details Date Type Department Care Team (Late st Contact Info) Description 07/04/2024 Telephone [facility] MEDICINE [address] [place], [place] [phone] Kay Pedersen MD [address] [place] [address] Nurse Triage Social History Tobacco Use Types Packs/Day Years [...] Recorded Patient Health Questionnaire-2 Score 2 03/21/2024 Internet Access Answer Date Recorded Internet Access Q1 No 06/05/2024 Internet Access Q2 I do not want or need it 03/2024 Comments No Sex and Gender Information Value Date Recorded Sex Assigned at Female 01/04/2022 10:32 AM EDT Legal Sex Female 10:32 AM EDT Gender Identity Female 01/04/2022 10:32 AM EDT Sexual Orientation Straight 01/04/2022 10 :32 AM EDT documented as of this encounter Miscellaneous Notes * Telephone Encounter - Kimi Painter RN - 07/04/2024 11:39 AM EDT No sand slinger needed as 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 Call returned to Mariluz Kessler to triage below. Reports having bilateral lower leg swelling from the knee down. Per pt onset of swelling since 06/11. Per pt swelling subsides with elevation. Per pt having more swelling on left lower leg and having bruising on calf and mild pain. Pt denies any CP, SOB or swelling of hands/face. Pt advised of disposition, agrees to seek [facility] ER now for evaluation to rule out concerns for DVT. Pt instructed to return call after discharge for follow up. Will send to team for status check. Protocol Used: Leg Swelling and Edema (Adult) Protocol-Based Disposition: Go to Office or Video Visit Now Positive Triage Question: * Thigh, calf, or ankle swelling in both legs, but one side is definitely more swollen (Exception: Longstanding difference between legs.) * All higher-acuity triage questions were negative Care Advice Discussed: * Reasons To Call Back - Swelling becomes worse - You become worse * Telephone Encounter - Drew Ramirez - 07/04/2024 10:54 AM EDT Symptom: Leg Swelling - Not From Injury Outcome: Schedule an appointment to be seen within 24 hours Reason: Caller denied all higher acuity questions The caller accepted this outcome. Contact pt at [phone] ( romanian ) documented in this encounter Plan of Treatment Upcoming Encounters Date Type Department Care Team (Late st Contact Info) Description 08/16/2024 1:00 PM EDT Office Visit [facility] MEDICINE [address] [place] [address] Marifer Pearson CNM [address] [place] [address] 09/10/2024 1:45 PM EDT Office Visit [address] [address] Kay Pedersen MD [address] [place] [address] documented as of this encounter Goals Goal Patient Goal Type Associated Problems Recent Progress Patient-Stated? Author Blood Pressure < 140/90 Blood Pressure 132/80( 025 2:10 PM EDT) No Shadi Cabrera, Solange documented as of this encounter Visit Diagnoses Not on filedocumented in this encounter Additional Health Concerns Assessment Noted Time PHQ-9 Depression Total Score: 10 025 9:30 AM EST documented as of this encounter Care Teams Developmental Behavioral Physician Relationship Specialty Start Date End Date Kay Pedersen MD [address] [place] [address] PCP - General Family Medicine 09/10/22 Shadi Cabrera, PharmD [address] [place] [address] Pharmacist Internal Medicine 05/31/23 Garrett Gilbert MD [address] [place] [address] Nephrology 06/18/24 Adryan Werner MD Dermatology Physician 06/18/24 Kerry Gallo Rheumatology 06/18/24 documented as of this encounter
--- OUTSIDE RECORDS SUMMARY | 2024-07-04 15:17 | XMS_ITS | Encounter Summary ---
Author Organization [employer] Address [address] [facility] [address] 7t [place] [address] Care Team Providers Care Fruit Shipper Name Role Phone Kay Pedersen MD Primary Care Provider [phone] Shadi Cabrera PharmD Unavailable [phone] Garrett Gilbert MD Unavailable [phone] Encounter Details Date Type Department Care Team (Late st Contact Info) Description 10/27/2023 Orders Only [facility] MED[facility]INE [address] [place], [place] [phone] Kay Pedersen MD [address] [place], [place] [phone] Hypokalemia (Primary Dx) Social History Tobacco Use [...] enough money to get more: Never True 10/ Transportation Answer Date Recorded In the past [...] Description 08/16/2024 1:00 PM EDT Office Visit [facility] MED[facility]INE [address] [place] [address] Marifer Pearson CNM [address] [place] [address] 09/10/2024 1:45 PM EDT Office Visit [facility] MED[facility]INE [address] [place] [address] Kay Pedersen MD [address] [place] [address] documented as of this encounter Goals Goal Patient Goal Type Associated Problems Recent Progress Patient-Stated? Author Blood Pressure < 140/90 Blood Pressure 132/80( 025 2:10 PM EDT) No Shadi Cabrera, Solange documented as of this encounter Procedures Procedure Name Priority Date/Time Associated Diagnosis Comments POTASSIUM Routine 11/15/2023 11:00 AM EDT Hypokalemia BASIC METABOLIC PANEL Routine 11/01/2023 1:26 PM EDT Hypokalemia documented in this encounter Results * Potassium (11/15/2023 11:00 AM EDT) Potassium 3.3 3.3 - 5.1 mmol/L [facility] Blood Venous blood specimen / Unknown 11/15/2023 11:00 AM EDT 11/15/2023 1:15 PM EDT Kay Pedersen MD LAB BLOOD ORDERABLES Final Resul t Performing Organization Address City/[facility]/ZIP Co de Phone Number [facility] [address] [place] [address] [phone] * (ABNORMAL) Basic Metabolic Panel (11/01/2023 1:26 PM EDT) Sodium 142 135 - 145 mmol/L [facility] Potassium 3.2(L) 3.3 - 5.1 mmol/L [facility] Chloride 106 96 - 108 mmol/L [facility] Carbon Dioxide 24 22 - 29 mmol/L [facility] Anion Gap 15 12 - 20 [facility] Urea Nitrogen (BUN) 10 9 - 16 mg/dL [facility] Creatinine, Serum 0.80 0.5 - 1.4 mg/dL [facility] Estimated Glomerular Filt Rate >60 [facility] Comment:NOTE: For -Am erican individuals, multiply the result by 1.210.Chronic Kidney Disease: Estimated GFR < 60 mL/min/[id number] Kidney Disease: Estimated GFR < 15 mL/min/1.73m2 Glucose 164(H) 60 - 115 mg/dL [facility] Calcium 10.1 8.4 - 10.2 mg/dL [facility] Blood Venous blood specimen / Unknown 11/01/2023 1:26 PM EDT 11/01/2023 4:08 PM EDT Kay Pedersen MD LAB BLOOD ORDERABLES Final Resul t Performing Organization Address City/[facility]/ZIP Co de Phone Number [facility] [address] [place] [address] [phone] documented in this encounter Visit Diagnoses Diagnosis Hypokalemia- Primary Hypopotassemia documented in this encounter Additional Health Concerns Assessment Noted Time PHQ-9 Depression Total Score: 8 03/14/19 24 9:41 AM EST documented as of this encounter Care Teams Fruit Shipper Relationship Specialty Start Date End Date Kay Pedersen MD [address] [place] [address] PCP - General Family Medicine 09/10/22 Shadi Cabrera, CatalinaD [address] [place] [address] Pharmacist Internal Medicine 05/31/23 Garrett Gilbert MD [address] [place] [address] Drive [address] [place] [address] Nephrology 06/18/24 Adryan Werner MD School Cleaner 06/18/24 Kerry Gallo Rheumatology 06/18/24 documented as of this encounter
--- OUTSIDE RECORDS SUMMARY | 2024-07-04 15:17 | XMS_ITS | Encounter Summary ---
Author Organization [employer] Address [address] [facility] [address] 7t [place] [address] Care Team Providers Care Locate Technician Name Role Phone Kay Pedersen MD Primary Care Provider [phone] Shadi Cabrera PharmD Unavailable [phone] Garertt Gilbert MD Unavailable [phone] Reason for Visit * Reason Comments Med Refill Encounter Details Date Type Department Care Team (Late st Contact Info) Description 06/30/2023 Refill [facility] [address] [place], [place] [phone] Kay Pedersen MD [address] [place], [place] [phone] Earache Social History Tobacco Use Types Packs/Day [...] Description 08/16/2024 1:00 PM EDT Office Visit [facility] MEDICINE [address] [place] [address] Marifer Pearson CNM [address] [place] [address] 09/10/2024 1:45 PM EDT Office Visit [address] [address] Kay Pedersen MD [address] [place] [address] documented as of this encounter Goals Goal Patient Goal Type Associated Problems Recent Progress Patient-Stated? Author Blood Pressure < 140/90 Blood Pressure 132/80( 025 2:10 PM EDT) No Shadi Cabrera, CatalinaD documented as of this encounter Visit Diagnoses Diagnosis Earache Unspecified otalgia documented in this encounter Additional Health Concerns Assessment Noted Time PHQ-9 Depression Total Score: 8 03/14/19 24 9:41 AM EST documented as of this encounter Care Teams Locate Technician Relationship Specialty Start Date End Date Kay Pedersen MD [address] [place] [address] PCP - General Family Medicine 09/10/22 Shadi Cabrera, CatalinaD [address] [place] [address] Pharmacist Internal Medicine 05/31/23 Garrett Gilbert MD [address] [place] [address] [place] [address] Nephrology 06/18/24 Adryan Werner MD Microbiology Teacher 06/18/24 Kerry Gallo Rheumatology 06/18/24 documented as of this encounter
--- OUTSIDE RECORDS SUMMARY | 2024-07-04 15:17 | XMS_ITS | Encounter Summary ---
Author Organization [employer] Address [address] [facility] [address] 7t [place] [address] Care Team Providers Care Park Police Name Role Phone Kay Pedersen MD Primary Care Provider [phone] Shadi Cabrera PharmD Unavailable [phone] Garrett Gilbert MD Unavailable [phone] Encounter Details Date Type Department Care Team (Late st Contact Info) Description 06/07/2023 Orders Only [facility] MEDICINE [address] [place], [place] [phone] Kay Pedersen MD [address] [place], [place] [phone] Social History Tobacco Use Types Packs/Day Years [...] Description 08/16/2024 1:00 PM EDT Office Visit [facility] MEDICINE [address] [place] [address] Marifer Pearson CNM [address] [place] [address] 09/10/2024 1:45 PM EDT Office Visit [facility] MEDICINE [address] [place] [address] Kay Pedersen MD [address] [place] [address] documented as of this encounter Goals Goal [...] documented as of this encounter Care Teams Park Police Relationship Specialty Start Date End Date Kay Pedersen MD [address] [place] [address] [phone] PCP - General Family Medicine 09/10/22 Shadi Cabrera PharmD [address] [place] [address] [phone] Pharmacist Internal Medicine 05/31/23 Garrett Gilbert MD [address] [place] [address] Nephrology 06/18/24 Adryan Werner MD Mining Technician 06/18/24 Kerry Gallo Rheumatology 06/18/24 documented as of this encounter
--- OUTSIDE RECORDS SUMMARY | 2024-07-04 15:17 | XMS_ITS | Encounter Summary ---
Author Organization [facility] Address [address] [facility] 7t [place] [address] Care Team Providers Care Purchasing Officer Name Role Phone Jasmine Rodriguez Marian CONDE Primary Care Provider [phone] Kay Pedersen MD Primary Care Provider [phone] Shadi Cabrera PharmD Unavailable [phone] Garrett Gilbert MD Unavailable [phone] Encounter Details Date Type Department Care Team (Late Contact Info) Description 05/24/2022 Orders Only [facility] [address] [place] [address] Iliana Geller LPN Social History Tobacco Use [...] Encounters Date Type Department Care Team (Late Contact Info) Description 08/16/2024 1:00 PM EDT Office Visit [facility] MEDICINE [address] [place] [address] [phone] Marifer Pearson CNM [address] [place], [place] [phone] 09/10/2024 1:45 PM EDT Office Visit [facility] MEDICINE [address] [place] [address] [phone] Kay Pedersen MD [address] [place] [address] documented as of this encounter Visit Diagnoses Not on filedocumented in this encounter Care Teams Purchasing Officer Relationship Specialty Start Date End Date Jasmine Rodriguez FNP PCP - General Family Medicine 01/25/22 09/09/22 Kay Pedersen MD [address] [place] [address] PCP - General Family Medicine 09/10/22 Shadi Cabrera PharmD [address] [place] [address] Pharmacist Internal Medicine 05/31/23 Garrett Gilbert MD [address] [place] [address] Drive [address] [place] [address] Nephrology 06/18/24 Adryan Werner MD Tank Farm Attendant 06/18/24 Kerry Gallo Rheumatology 06/18/24 documented as of this encounter
--- OUTSIDE RECORDS SUMMARY | 2024-07-04 15:17 | XMS_ITS | Encounter Summary ---
Author Organization Takes Address [address] [place] [address] Care Team Providers Care Choreography Director Name Role Phone Kay Pedersen MD Primary Care Provider Shadi Cabrera PharmD Unavailable [phone] Garrett Gilbert MD Unavailable [phone] Encounter Details Date Type Department Care Team (Late st Contact Info) Description 07/04/2024 Orders Only [facility] External Provider, [facility] Social History Tobacco Use Types Packs/Day Years [...] t he electric, gas, oil or water [employer] threatened to shut off services in your [...] Description 08/16/2024 1:00 PM EDT Office Visit [facility] [address] [place] [phone] Marifer Pearson CNM [address] [place] [address] 09/10/2024 1:45 PM EDT Office Visit [facility] [address] [place] [phone] Kay Pedersen MD [address] [place] [address] documented as of this encounter Goals Goal Patient Goal Type Associated Problems Recent Progress Patient-Stated? Author Blood Pressure < 140/90 Blood Pressure 132/80( 025 2:10 PM EDT) No Shadi Cabrera, CatalinaD documented as of this encounter Procedures Procedure Name Priority Date/Time Associated Diagnosis Comments VASC US LOWER EXTREMITY VENOUS DUPLEX BILATERAL Routine 07/04/2024 2:47 PM EDT HIGH SENSITIVITY TROPONIN I Routine 07/04/2024 1:11 PM EDT SARS COV2/INFLUENZA A/B AND RSV RNA QL NAAT Routine 07/04/2024 1:11 PM EDT CBC WITH AUTO DIFFERENTIAL Routine 07/04/2024 1:11 PM EDT PROTHROMBIN TIME-INR Routine 07/04/2024 1:11 PM EDT B TYPE NATRIURETIC PEPTIDE (BNP) Routine 07/04/2024 1:11 PM EDT MAGNESIUM Routine 07/04/2024 1:11 PM EDT COMPREHENSIVE METABOLIC PANEL Routine 07/04/2024 1:11 PM EDT HOLD LAVENDER - POSSIBLE HEMATOLOGY Routine 07/04/2024 1:02 PM EDT XR CHEST 2 VIEWS Routine 07/04/2024 12:3 9 PM EDT documented in this encounter Results * VASC Lower Extremity Venous Duplex Bilateral (07/04/2024 2:47 PM EDT) 07/04/2024 2:47 PM EDT Narrative [facility] IMAGING - 07/04/2024 3:15 PM EDT ? [facility] ?[address] ?[place] [address] ? Ultrasound Report ? Signed ? Patient: Mariluz Pisano ?MR#: M ?? [id number] ? : 1975 ?Acct:[id number] ? Age/Sex: 49 / F ?ADM Date: 07/04/24 ? Loc: HO.ED ? Attending Dr: ? Ordering Physician: Ting Sandra ?? Date of Service: 07/04/24 ?? Procedure(s): US venous duplex LE BI ?? Accession Number(s): [id number] ? cc: Ting Sandra; Kay Pedersen MD ? EXAMINATION: ?? US TRIPLEX LOWER EXTREMITY, BILATERAL ? CLINICAL INFORMATION: ?? Edema, lower extremities. ? COMPARISON: ?? None available. ? TECHNIQUE: ?? Color-flow triplex imaging with spectral analysis and compression ?? Doppler were performed on the bilateral lower extremities. ? FINDINGS: ?? Respiratory variation, normal compression and augmented flow are ?? present throughout the interrogated common femoral vein, superficial ?? femoral vein, profunda femoral vein, popliteal vein and midcalf ?? peroneal and posterior tibial venous segments. ? There is no Rivera's cyst. ? US/US venous duplex LE BI ?? IMPRESSION: ?? No acute deep venous thrombosis involving the bilateral lower ?? extremities. Negative for DVT. ? Electronically signed by: ??Chacho Kovacs MD ??07/04/2024 03:12 PM ?? EDT RP ? Dictated By: ?Chacho Lyon MD ? Signed By: ?<Electronically signed by Chacho Pablo MD in OV> ? 07/04/24 1512 ? DD/ 1447 ? TD/TT: 07/04/24 1456 ? Internal Audit Consultant: ? Procedure Note Steve, Clive - 07/04/2024 [place] [address] Ultrasound Report Signed Patient: Debo Pisano#: M [id number] : 1975Acct:[id number] Age/Sex: 49 / FADM Date: 07/04/24 Loc: HO.ED Attending Dr: Ordering Physician: Ting Sandra Date of Service: 07/04/24 Procedure(s): US venous duplex LE BI Accession Number(s): [id number] cc: Ting Sandra; Kay Pedersen MD EXAMINATION: US TRIPLEX LOWER EXTREMITY, BILATERAL CLINICAL INFORMATION: Edema, lower extremities. COMPARISON: None available. TECHNIQUE: Color-flow triplex imaging with spectral analysis and compression Doppler were performed on the bilateral lower extremities. FINDINGS: Respiratory variation, normal compression and augmented flow are present throughout the interrogated common femoral vein, superficial femoral vein, profunda femoral vein, popliteal vein and midcalf peroneal and posterior tibial venous segments. There is no Rivera's cyst. US/US venous duplex LE BI IMPRESSION: No acute deep venous thrombosis involving the bilateral lower extremities. Negative for DVT. Electronically signed by: Chacho Kovacs MD 07/04/2024 03:12 PM EDT Dictated By: Chacho Lyon MD Signed By: <Electronically signed by Chacho Pablo MDin OV> 07/04/24 1512 DD/ 1447 TD/TT: 07/04/24 1456 Internal Audit Consultant: [facility] External Provider CV VASC ULAR PROCEDURES Edited Result - Final Performing Organization Address City/[facility]/ZIP Co de Phone Number [facility] [address] [place] [phone] * SARS-CoV-2 RNA, Influenza A/B, and RSV RNA, Ql NAAT (07/04/2024 1:11 PM EDT) [facility] Influenza A PCR NEGATIVE Negative [facility] Influenza B PCR NEGATIVE Negative [facility] Resp Syncy Virus RNA Qual PCR NEGATIVE Negative [facility] SARS COV2 PCR NEGATIVE Negative [facility] Comment:All test results mus t be correlated with clinical findings.Negative results do not preclude SARS-CoV2, influenza Avirus, influenza B virus and/or RSV infectionand should not be used as the sole basis for treatment orother patient management decisions. Negative results must becombined with clinical observations, patient history, andepidemiological information.This test has not been evaluated for monitoring treatment ofinfection.This test has been authorized by the FDA under an EmergencyUse Authorization (EUA) for use by authorized laboratories.Testing performed on the [employer] GeneXpert utilizingreal-time RT-PCR.All SARS CoV2 and positive influenza A/B results arereported to [facility]. 07/04/2024 1:11 PM EDT 07/04/2024 2:05 PM EDT us Generic External Data Provider LAB MICROBIOLOGY - GENERAL ORDERABLES Final Result Performing Organization Address [facility]/ZIP Co de Phone Number [facility] [address] [place] [phone] * High Sensitivity Troponin I (07/04/2024 1:11 PM EDT) Pathologist [facility] TROPONIN I HIGH SENSITIVITY <2.7 <3.5 - 17.0 ng/L [facility] Comment:The [place] high sens itivity Troponin-I results should beused in conjunction with other diagnostic information suchas ECG, clinical observations and information, and patientsymptoms to aid in the diagnosis of [place]. 07/04/2024 1:11 PM EDT 07/04/2024 1:13 PM EDT Generic External Data Provider LAB BLOOD ORDERAB LES Final Result Performing Organization Address [facility] Co de Phone Number [facility] [address] [place] [phone] * B Type Natriuretic Peptide (BNP) (07/04/2024 1:11 PM EDT) [facility] B Type Natriuretic Peptide <10 <100 pg/mL [facility] 07/04/2024 1:11 PM EDT 07/04/2024 1:13 PM EDT Generic External Data Provider LAB BLOOD ORDERAB LES Final Result Performing Organization Address [facility] Co de Phone Number [facility] [address] [place] [phone] * Magnesium (07/04/2024 1:11 PM EDT) [facility] Magnesium 1.8 1.6 - 2.6 mg/dL [facility] 07/04/2024 1:11 PM EDT 07/04/2024 1:13 PM EDT Generic External Data Provider LAB BLOOD ORDERAB LES Final Result Performing Organization Address [facility] Co de Phone Number [facility] [address] [place] [phone] * (ABNORMAL) Comprehensive Metabolic Panel (07/04/2024 1:11 PM EDT) [facility] Sodium 142 135 - 145 mmol/L [facility] Potassium 3.2(L) 3.3 - 5.1 mmol/L [facility] Chloride 108 96 - 108 mmol/L [facility] Carbon Dioxide 24 22 - 29 mmol/L [facility] Anion Gap 13 12 - 20 [facility] Urea Nitrogen (BUN) 12 9 - 16 mg/dL [facility] Creatinine, Serum 0.69 0.5 - 1.4 mg/dL [facility] Creatinine Clr Calc Pharmacy 97.6 [facility] Comment:Provided height and weight: 149.86 cm,92 kg.eGFR (calculated from the MDRD study equation) and eCrCl(calculated from the Cockcroft-Gault equation) are based ondifferent parameters and may not yield comparable results.If eCrCl result is absurd, please check patient'sheight/weight. Estimated Glomerular Filt Rate >60 [facility] Comment:Chronic Kidney Disea se: Estimated GFR < 60 mL/min/1.05v8Prkslm Kidney Disease: Estimated GFR < 15 mL/min/1.73m2 Glucose 109 60 - 115 mg/dL [facility] Calcium 9.4 8.4 - 10.2 mg/dL [facility] Bilirubin, Total 0.4 0.0 - 1.0 mg/dL [facility] Aspartate Amino Transferase 29 5 - 31 U/L [facility] Alanine Aminotransferase 24 0 - 31 U/L [facility] Total Protein 7.0 6.5 - 8.0 g/dL [facility] Albumin Level 4.1 3.5 - 5.0 g/dL [facility] Alkaline Phosphatase 141(H) 39 - 117 U/L [facility] 07/04/2024 1:11 PM EDT 07/04/2024 1:13 PM EDT us Generic External Data Provider LAB BLOOD ORDERAB LES Final Result [facility] [address] [place] [phone] * (ABNORMAL) Prothrombin Time-INR (07/04/2024 1:11 PM EDT) [facility] Prothrombin Time 10.6(L) 10.9 - 12.4 SEC [facility] INTERNATIONAL NORM RATIO 0.9 0.9 - 1.1 [facility] Comment:INTERNATIONAL NORMAL IZED RATIO (INR) REFERENCE RANGES Reference RangeFor patients not on anticoagulant therapy: 0.9 - 1.1INR ranges for oral anticoagulanttherapy:For prevention and treatment of venous thrombosis and pulmonary embolism: 2.0 - 3.0For acute myocardial infarction with aspirin therapy: 2.0 - 3.0For acute myocardial infarction without aspirin therapy: 3.0 - 4.0For patients with mechanical prosthetic heart valves: 2.5 - 3.5 07/04/2024 1:11 PM EDT 07/04/2024 1:13 PM EDT us Generic External Data Provider LAB BLOOD ORDERAB LES Final Result Performing Organization Address City/State/[facility] Co de Phone Number [facility] [address] [place] [phone] * (ABNORMAL) CBC auto differential (07/04/2024 1:11 PM EDT) [facility] White Blood Count 7.7 4.8 - 10.8 X10*3/uL [facility] Red Blood Count 5.07 4.20 - 5.50 X10*6/uL [facility] Hemoglobin 14.1 12.0 - 16.0 g/dl [facility] Hematocrit 43.7 37.0 - 47.0 % [facility] Mean Corpuscular Volume 86.2 80.0 - 98.0 fL [facility] Mean Corpuscular Hemoglobin 27.8 27.0 - 33.0 pg [facility] Mean Corpuscular HGB Conc 32.3 31.0 - 35.0 g/dl [facility] Red Cell Distribution Width 13.8 11.0 - 16.0 % [facility] Platelet Count 266 160 - 400 X10*3/uL [facility] Mean Platelet Volume 10.5 9.4 - 12.3 fL [facility] Neutrophils Percent Auto 50.0 45 - 73 % [facility] Imm Gran Pct Auto 0.6(H) 0.0 - 0.4 % [facility] Lymphocytes Percent Auto 30.9 20 - 40 % [facility] Monocytes Percent Auto 5.7 2 - 11 % [facility] Eosinophils Percent Auto 11.6(H) 0 - 4 % [facility] Basophils Percent Auto 1.2 0 - 2 % [facility] NRBC Pct Auto 0.0 0.0 - 0.2 /100WBC [facility] Neutrophils Absolute Auto 3.9 2.0 - 8.3 x10*3/uL [facility] Imm Gran Abs Auto 0.05(H) 0.00 - 0.03 X10*3/uL [facility] Lymphocytes Absolute Auto 2.4 1.2 - 4.9 X10*3/uL [facility] Monocytes Absolute Auto 0.4 0.1 - 1.2 X10*3/uL [facility] Eosinophils Absolute Auto 0.9(H) 0.0 - 0.4 X10*3/uL [facility] Basophils Absolute Auto 0.1 0.0 - 0.2 X10*3/uL [facility] NRBC Abs Auto 0.000 0.0 - 0.012 X10*3/uL [facility] 07/04/2024 1:11 PM EDT 07/04/2024 1:23 PM EDT us Generic External Data Provider LAB BLOOD ORDERAB LES Final Result [facility] [address] [place] [phone] * Hold Lavender - Possible Hematology (07/04/2024 1:02 PM EDT) Hold Lavender - Possible Hematololgy SEE NOTE [facility] Comment:Specimen will be hel d untested for 8 hours. Call Hematologyif testing is desired. 07/04/2024 1:02 PM EDT 07/04/2024 1:16 PM EDT us Generic External Data Provider HISTORICAL/NON OR DERABLE LABS Final Result [facility] [address] [place] [phone] * XR Chest 2 Views (07/04/2024 12:39 PM EDT) Anatomical Region Laterality Modality Chest Radiographic Vika ging 07/04/2024 12:3 9 PM EDT Narrative 07/04/2024 12:56 PM EDT ? [facility] ?[address] ?[place] [address] ?XRay Report ? Signed ? Patient: Schroeder Colon,Mariluz ?MR#: M ?? [id number] ? : 1975 ?Acct:[id number] ? Age/Sex: 49 / F ?ADM Date: 07/04/24 ? Loc: HO.ED ? Attending Dr: ? Ordering Physician: Kamille Levine ?? Date of Service: 07/04/24 ?? Procedure(s): XR chest 2V ?? Accession Number(s): [id number] ? cc: Kamille Levine; Kay Pedersen MD ? EXAMINATION: ?? XR CHEST ? CLINICAL INFORMATION: ?? chest discomfort ? COMPARISON: ?? None available. ? TECHNIQUE: ?? 2 views of the chest were obtained. ? FINDINGS: ?? Patchy opacity, right perihilar region. ?? No pleural effusion. No pneumothorax. ?? Cardiomediastinal silhouette size is normal. ?? Multilevel thoracic spondylosis. ?? Vascular clips right upper quadrant abdomen. ? XR/XR chest 2V ?? IMPRESSION: ?? Concerning acute airspace disease, right middle lung lobe in the ?? correct clinical settings. ? Electronically signed by: ??Chacho Kovacs MD ??07/04/2024 12:53 PM ?? EDT RP ? Dictated By: ?Chacho Lyon MD ? Signed By: ?<Electronically signed by Chacho Pablo MD in OV> ? 07/04/ 1253 ? DD/ 1239 ? TD/TT: 07/04/24 1250 ? Internal Audit Consultant: ? Procedure Note Steve, Image - 07/04/[address] [address] XRay Report Signed Patient: Debo Pisano#: M [id number] : 1975Acct:[id number] Age/Sex: 49 / FADM Date: 07/04/24 Loc: HO.ED Attending Dr: Ordering Physician: Kamille Levine Date of Service: 07/04/24 Procedure(s): XR chest 2V Accession Number(s): [id number] cc: Kamille Levine; Kay Pedersen MD EXAMINATION: XR CHEST CLINICAL INFORMATION: chest discomfort COMPARISON: None available. TECHNIQUE: 2 views of the chest were obtained. FINDINGS: Patchy opacity, right perihilar region. No pleural effusion. No pneumothorax. Cardiomediastinal silhouette size is normal. Multilevel thoracic spondylosis. Vascular clips right upper quadrant abdomen. XR/XR chest 2V IMPRESSION: Concerning acute airspace disease, right middle lung lobe in the correct clinical settings. Electronically signed by: Chacho Kovacs MD 07/04/2024 12:53 PM EDT Dictated By: Chacho Lyon MD Signed By: <Electronically signed by Chacho Pablo MDin OV> 07/04/24 1253 DD/ 1239 TD/TT: 07/04/24 1250 Internal Audit Consultant: [facility] External Provider IMG XR PROCEDURES Edited Result - Final documented in this encounter Visit Diagnoses Not on filedocumented in this encounter Additional Health Concerns Assessment Noted Time PHQ-9 Depression Total Score: 10 03/21/ 025 9:30 AM EST documented as of this encounter Care Teams Choreography Director Relationship Specialty Start Date End Date Kay Pedersen MD [address] [place] [address] PCP - General Family Medicine 09/10/22 Shadi Cabrera, CatalinaD [address] [place] [address] Pharmacist Internal Medicine 05/31/23 Garrett Gilbert MD [address] [place] [address] Drive [address] [place] [address] Nephrology 06/18/24 Adryan Werner MD [employer] 06/18/24 Kerry Gallo Rheumatology 06/18/24 documented as of this encounter
--- OUTSIDE RECORDS SUMMARY | 2024-07-04 15:17 | XMS_ITS | Encounter Summary ---
Author Organization [employer] Address [address] [place] [address] Care Team Providers Care Volcanologist Name Role Phone Kay Pedersen MD Primary Care Provider [phone] Shadi Cabrera PharmD Unavailable [phone] Garrett Gilbert MD Unavailable [phone] Reason for Visit * Reason Comments Med Refill Encounter Details Date Type Department Care Team (Late st Contact Info) Description 06/22/2023 Refill [facility] [address] [place], [place] [phone] Kay Pedersen MD [address] [place], [place] [phone] Earache; Moderate persistent asthma without complication Social [...] Office Visit [facility] MEDICINE [address] [place] [phone] Marifer Pearson CNM [address] [place] [address] 09/10/2024 1:45 PM EDT Office Visit [address] [address] Kay Pedersen MD [address] [place] [phone] documented as of this encounter Goals Goal [...] documented as of this encounter Care Teams Volcanologist Relationship Specialty Start Date End Date Kay Pedersen MD [address] [place] [address] [phone] PCP - General Family Medicine 09/10/22 hSadi Cabrera, PharmD [address] [place] [address] Pharmacist Internal Medicine 05/31/23 Garrett Gilbert MD [address] [place] [address] [place] [address] Nephrology 06/18/24 Adryan Werner MD [facility] 06/18/24 Kerry Gallo Rheumatology 06/18/24 documented as of this encounter
--- OUTSIDE RECORDS SUMMARY | 2024-07-04 15:17 | XMS_ITS | Clinical Summary ---
Author Organization [employer] Address [address] [facility] [address] [place] [address] Care Team Providers Care Dye Stand Loader Name Role Phone Kay Pedersen MD Primary Care Provider [phone] Shadi Cabrera PharmD Unavailable [phone] Garrett Gilbert MD Unavailable [phone] Allergies Active Allergy Reactions Criticality Noted Date [...] per day. 90 tablet 3 024 Active prazosin (Minipress) 1 MG capsule Take 1 mg by mouth at bedtime. 024 Active montelukast (Singulair) 10 MG tabletIndications :Moderate persistent asthma without complication TAKE 1 TABLET BY MOUTH AT BEDTIME 90 tablet 1 024 Active atorvastatin (Lipitor) 40 MG tabletIndications :Mixed hyperlipidemia TAKE 1 TABLET BY MOUTH AT BEDTIME 90 tablet 1 024 Active guaiFENesin (Humibid 3) 400 MG tablet Take 1 tablet (400 mg) by mouth every 6 (six) hours if needed for cough. 20 tablet 025 Active albuterol (2.5 MG/3ML) 0.083% nebulizer solution INHALE 1 AMPULE USING A NEBULIZER EVERY 4 HOURS NEEDED FOR WHEEZING 90 mL 1 025 Active potassium chloride CR (Klor-Con M20) 20 MEQ ER tablet TAKE 1 TABLET BY MOUTH ONCE DAILY DIRECTED 30 tablet 1 025 Active hydrOXYzine HCl (Atarax) 25 MG tablet TAKE 1 TABLET BY MOUTH EVERY TWELVE HOURS NEEDED FOR ANXIETY 60 tablet 1 025 Active Tirzepatide-Weigh t Management (Zepbound) 2.5 MG/0.5ML solution auto-injector Inject 0.5 mL (2.5 mg) under the skin 1 (one) time per week. 2 mL Active Alcohol Swabs (Alcohol Prep) pads Use when checking blood sugar 100 each Active FreeStyle lancets 1 each by Other route Once per day. 100 each Active FREESTYLE LITE test strip Check blood glucose 100 each Active Blood Glucose Monitoring Suppl (FreeStyle Lite) w/Device kit 1 Device Once per day. 1 kit Active Blood Glucose Monitoring Suppl (FreeStyle Lite) w/Device kit 1 Device Once per day. 1 kit 025 2024 Discontinued(R eorder (will not trigger notification to Pharmacy)) Active Problems Problem Noted Date Diagnosed Date Sinus tachycardia 03/17/2024 Assessment & Plan (06/06/2024 11:00 AM EDT): - unlikely to be POTS or postCOVID [...] if patient develops pain or palpitation worsens Assessment & Plan (03/17/2024 6:25 AM EST): [...] liver disease (MASLD) 11/25/2023 Assessment & Plan (06/06/2024 11:00 AM EDT): - In a setting of leflunomide treatment for RA - Last liver test: 09/03/23 - Last US / elastography: 12/19/23 enlarged echogenic liver suggestive of hepatic steatosis. Normal liver stiffness. - FIB4 index 1.74 cirrhosis indeterminate - GI: [facility], last seen in Nov 2022 - continue working on lifestyle modifications - continue surveillance study - will vaccinate Hep A and B Assessment & Plan (03/17/2024 6:22 AM EST): - In a setting of leflunomide treatment for RA - Last liver test: 09/03/23 - Last US / elastography: 12/19/23 enlarged echogenic liver suggestive of hepatic steatosis. Normal liver stiffness. - FIB4 index 1.74 cirrhosis indeterminate - GI: [facility], last seen in Nov 2022 - continue working on lifestyle modifications - continue surveillance study - will vaccinate Hep A and B Assessment & Plan (11/25/2023 4:58 PM EDT): - Last liver test: 09/03/23 - Last US / elastography: will order - FIB4 index 1.74 cirrhosis indeterminate - GI: [facility], last seen in Nov 2022 - continue [...] continue losartan Osteoporosis 10/12/2023 Assessment & Plan (06/06/2024 11:01 AM EDT): Most recent DEXA 06/01/23 Mild osteopenia lumbar T-score -1.2 Assessment & Plan (11/24/2023 12:55 PM EDT): Most recent DEXA 06/01/23 Mild osteopenia lumbar T-score -1.2 Thoracic degenerative disc disease 10/12/2023 Fibromyalgia 04/25/2023 Assessment & Plan (06/06/2024 11:01 AM EDT): - continue duloexetine (Cymbalta) - continue judicious usee of cyclobenzaprine - continue following recommendations from rheumtalogist - continue staying physically active Assessment & Plan (11/24/2023 12:54 PM EDT): [...] (01/31/2023 5:58 AM EST): - following with news reel cameraman - continue duloxetine, cyclobenzaprine Assessment & Plan (10/14/2022 10:27 AM EDT): - following with news reel cameraman - continue duloxetine, cyclobenzaprine Acid reflux 10/12/2022 [...] sleep apnea syndrome 10/11/2022 Assessment & Plan (06/10/2024 8:57 AM EDT): - following with sleep medicine clinic, last seen in Mar 2024 - Continue Auto PAP 5-15 cm H2O Assessment & Plan (03/12/2024 10:57 AM EST): [...] Interested in Acupuncture, so given info on [facility] Acupuncture clinics. She has also been scheduled with [facility] prescriber to transfer care. Meanwhile, continue Abilify [...] Seropositive rheumatoid arthritis 05/30/2018 Assessment & Plan (06/06/2024 11:02 AM EDT): - following with [facility] Rheumatology, last seen on 03/04/24 - previously taking methotrexate - currently taking leflunomide - patient did not take leflunomide from 09/03/23 to 11/01/23 due to sepsis and cellulitis - continue current treatment plan Assessment & Plan (03/10/2024 6:33 PM EST): - following with [facility] Rheumatology, last seen on 03/04/24 - previously taking methotrexate - currently taking leflunomide - patient did not take leflunomide from 09/03/23 to 11/01/23 due to sepsis and cellulitis - continue current treatment plan Assessment & Plan (11/25/2023 4:46 PM EDT): - following with [facility] Rheumatology, last seen on 11/01/23 - previously taking methotrexate - currently taking leflunomide - patient did not take leflunomide from 09/03/23 to 11/01/23 due to sepsis and cellulitis - continue current treatment plan Assessment & Plan (05/01/2023 11:33 AM EST): - following with [facility] Rhuematology - previously taking methotrexate - currently taking leflunomide - continue current treatment plan Assessment & Plan (01/31/2023 5:59 AM EST): - following with [facility] Rhuematology - previously taking methotrexate - currently taking leflunomide - continue current treatment plan Assessment & Plan (10/14/2022 10:30 AM EDT): - following with [facility] Rhuematology - previously taking methotrexate - currently taking leflunomide - continue current treatment plan Polyp in nasopharynx 05/30/2018 02/01/2023 Obesity 07/05/2017 Assessment & Plan (06/10/2024 9:06 AM EDT): - patient received prednisone for asthma exacerbation and rheumatoid arthritis flare-up - start GLP1-RA. Will prescribe tirzepatide. - Continue working on lifestyle modifications. - Generic advice as below. Tailor for your unique body, character, and specific condition. Dietary Recommendations: Fruits, vegetables, whole grains, protein foods, and fat-free or low-fat dairy products are healthy choices. Eat different types of protein foods in your diet. This can include seafood, lean meats, poultry, beans, peas, lentils, nuts, seeds, soy products, and eggs. Limit foods and beverages higher in added sugars, saturated fat, and sodium. Exercise Recommendations: At least 150 minutes of moderate-intensity physical activity per week, or an equivalent combination of moderate- and vigorous-intensity activity Assessment & Plan (11/24/2023 12:57 PM EDT): - patient received prednisone for asthma exacerbation and rheumatoid arthritis flare-up - consider GLP1-RA Prediabetes 07/05/2017 Assessment & Plan (06/06/2024 11:03 AM EDT): - Hx systemic steroid use, more frequent in the past for RA and asthma - the highest A1C 6.1% in 2021 - the most recent A1C 6.6% on 05/30/24 - continue working on lifestyle modifications - optimize chronic disease management and prevent exacerbation Assessment & Plan (03/17/2024 6:26 AM EST): [...] polyps 04/04/2017 Asthma 01/25/2017 Assessment & Plan (06/10/2024 8:58 AM EDT): - last exacerbation in Nov 2023, treated with prednisone. No antibiotic. - following with [facility] pulmonology, last seen in Mar 2024 - PFT in 2021: FEV1 1.73 liters, 72%. Forced vital capacity 2.37 liters, 80%. Ratio 73. There is a 9% improvement in FEV1 with the administration of bronchodilators. Total lung capacity is normal. Diffusing capacity is normal. - Continue budesonide / formoterol (Symbicort) as maintenance - Continue albuterol as rescue - Continue montelukast - Continue Dupixent Assessment & Plan (03/10/2024 6:30 PM EST): - last exacerbation in Nov 2023, treated with prednisone. No antibiotic. - following with [facility] pulmonology, last seen in Jan 2023 [...] short course of prednisone - following with [facility] pulmonology - Continue budesonide / formoterol (Symbicort) as maintenance - Continue albuterol as rescue - Continue montelukast Assessment & Plan (04/25/2023 3:28 PM EST): - following with [facility] pulmonology - Continue budesonide / formoterol (Symbicort) as maintenance - Continue albuterol as rescue - Continue montelukast Assessment & Plan (01/31/2023 5:56 AM EST): - following with [facility] pulmonology - Continue Symbicort as maintenance - Continue albuterol as rescue - Continue montelukast Assessment & Plan (10/14/2022 9:40 AM EDT): - following with [facility] pulmonology - Continue Symbicort as maintenance - Continue albuterol as rescue - Continue montelukast Hyperlipidemia 01/25/2017 Assessment & Plan (06/06/2024 11:05 AM EDT): - On atorvostatin. and omega 3 - continue working on lifestyle modifications - Last lipid profile 05/30/24 TRIG 206; CHOL 207; LDL 111; HDL 55 Assessment & Plan (03/17/2024 5:57 AM EST): [...] lipid panel Hypertension 01/25/2017 Assessment & Plan (06/10/2024 9:01 AM EDT): -Goal BP < 140/90 per JNC-8 and < 130/80 per ACC/AHA guideline (Treatment threshold >= ) -BP at goal, but it has been labile, previously had Dx HTN and was taking atenolol -Continue working on lifestyle modifications -Recommended self-monitoring BP. -Continue losartan 50 mg daily -Continue amlodipine to 10 mg; consider changing to a combo pill -Continue clonidine 0.1 mg bid -Start tirzepatide -Consider beta royal since patient is tachycardic -Treatment Hx: atenolol, which was discontinued for unclear reason -Her high blood pressure could be due to all of the medications she takes Assessment & Plan (03/17/2024 5:52 AM EST): [...] Encounters Date Type Department Care Team Description 07/04/2024 Orders Only [facility] External Provider, [facility] 07/04/2024 Telephone [facility] [address] [place] [address] Kay Pedersen MD Nurse Triage 06/18/2024 Telephone [facility] [address] [facility] [place] [address] Vinita Pablo, GIO Care Coordination 06/08/2024 Refill [facility] [address] [facility] [place] [address] Kay Pedersen MD 06/05/2024 1:30 PM EDT Office Visit [facility] [address] [facility] [place] [address] aKy Pedersen MD Obstructive sleep apnea syndrome (Primary Dx); Moderate persistent asthma without complication; Sinus tachycardia; Hypertension, unspecified type; Metabolic dysfunction-associa corona steatotic liver disease (MASLD); Osteoporosis, unspecified osteoporosis type, unspecified pathological fracture presence; Fibromyalgia; Prediabetes; Seropositive rheumatoid arthritis (CMS/HCC); Mixed hyperlipidemia; Class 2 severe obesity due to excess calories with serious comorbidity and body mass index (BMI) of 36.0 to 36.9 in adult (CMS/HCC) 06/05/2024 Travel 05/30/2024 Orders Only GENERIC EXTERNAL DATA DEPARTMENT Provider, Generic External Data 05/18/2024 Population Health Risk Score [facility] ([facility]) Department [address] [place] [phone] Provider, Population Health Generic 05/12/2024 Refill [facility] [address] [place] [address] Kay Pedersen MD 05/08/2024 Refill [facility] [address] [place] [address] Kay Pedersen MD from Last 3 Months Immunizations Name Administration [...] Sign Reading Time Taken Comments Blood Pressure 132/80 06/05/2024 2:10 PM EDT Pulse 111 06/05/2024 1:31 PM EDT Temperature 35.8 ??C (96.5 ??F) 06/05/2024 1:31 PM ED T Respiratory Rate 20 06/05/2024 1:31 PM EDT Oxygen Saturation 95% 06/05/2024 1:31 PM EDT Inhaled Oxygen Concentration - - Weight 91.5 kg (201 lb 12.8 oz) 06/05/2024 1:31 PM EDT Height 151.1 cm (4' 11.5 ) 06/05/2024 1:31 PM ED T Body Mass Index 40.08 06/05/2024 1:31 PM EDT Plan of Treatment Upcoming Encounters Date Type Department Care Team (Late st Contact Info) Description 08/16/2024 1:00 PM EDT Office Visit [facility] [address] [place] [phone] Marifer Pearson CNM [address] [place] [address] 09/10/2024 1:45 PM EDT Office Visit [facility] [address] [place] [phone] Kay Pedersen MD [address] [place], [place] [phone] Health Maintenance Due Date Last Done Comments CT Colonography 1975 FIT DNA/Cologuard 1975 FIT 1975 FOBT 1975 Sigmoidoscopy 1975 Family Planning (PISQ) 06/28/1990 COVID-19 Vaccine ( season) 2023 04/12/2022, 01/26/2021, 01/05/2021 Hepatitis A Vaccines (2 of 2 - Risk 2-dose series) 09/09/2024 03/12/2024 Alcohol/Substance Use Screening 03/12/2025 03/12/2024 Depression Screening 03/21/2025 03/21/2024, 03/21/19 25 Diabetes: Hemoglobin A1C 05/30/2025 025, 10/05/2023, 10/12/2022, Additional history exists Mammogram 05/31/2025 06/01/2023, 10/07/2017 SDOH Screening 06/05/2025 06/05/2024 Tobacco Screening 06/10/2025 06/10/2024 Zoster Vaccines (1 of 2) 06/28/2025 DTaP/Tdap/Td Vaccines (2 - Td or Tdap) 04/04/2028 04/04/2018 Lipid Panel 05/30/2029 05/30/2024, 05/05, 10/12/2022, Additional history exists Colonoscopy 11/09/2032 11/09/2022 Colorectal [...] 2:10 PM EDT) No Shadi Cabrera, PharmD Procedures Procedure Name Priority Date/Time Associated Diagnosis Comments VASC US LOWER EXTREMITY VENOUS DUPLEX BILATERAL Routine 07/04/2024 2:47 PM EDT HIGH SENSITIVITY TROPONIN I Routine 07/04/2024 1:11 PM EDT B TYPE NATRIURETIC PEPTIDE (BNP) Routine 07/04/2024 1:11 PM EDT MAGNESIUM Routine 07/04/2024 1:11 PM EDT COMPREHENSIVE METABOLIC PANEL Routine 07/04/2024 1:11 PM EDT PROTHROMBIN TIME-INR Routine 07/04/2024 1:11 PM EDT CBC WITH AUTO DIFFERENTIAL Routine 07/04/2024 1:11 PM EDT SARS COV2/INFLUENZA A/B AND RSV RNA QL NAAT Routine 07/04/2024 1:11 PM EDT HOLD LAVENDER - POSSIBLE HEMATOLOGY Routine 07/04/2024 1:02 PM EDT XR CHEST 2 VIEWS Routine 07/04/2024 12:3 9 PM EDT C-REACTIVE PROTEIN Routine 05/30/2024 9: 36 AM EDT LIPID PANEL WITH REFLEX TO DIRECT LDL Routine 05/30/2024 9:36 AM EDT Mixed hyperlipidemia COMPREHENSIVE METABOLIC PANEL Routine 05/30/2024 9:36 AM EDT Hypertension, unspecified type TSH W/REFLEX TO FT4 Routine 05/30/2024 9 :36 AM EDT Hypertension, unspecified type Sinus tachycardia Class 2 severe obesity due to excess calories with serious comorbidity and body mass index (BMI) of 35.0 to 35.9 in adult ([facility]) SED RATE BY MODIFIED WESTERGREN Routine 05/30/2024 9:16 AM EDT CBC WITH AUTO DIFFERENTIAL Routine 05/30/2024 9:16 AM EDT HEMOGLOBIN A1C Routine 05/30/2024 9:16 AM EDT Metabolic dysfunction-associate d steatotic liver disease (MASLD) Prediabetes BI MAMMOGRAM SCREENING TOMOSYNTHESIS BILATERAL Routine 06/01/2023 2:10 PM EDT HM COLONOSCOPY Routine 11/09/2022 HEPATITIS C ANTIBODY REFLEX Routine 10/12/2022 11:06 AM EDT ANNEL HISTORICAL HIV AB/AG Routine 04/18/2019 11:04 AM EST from Last 3 Months or Most Recently Relevant to Health Maintenance Results * VASC Lower Extremity Venous Duplex Bilateral (07/04/2024 2:47 PM EDT) 07/04/2024 2:47 PM EDT Narrative [facility] - 07/04/2024 3:15 PM EDT ? [facility] ?[address] ?[place] [address] ? Ultrasound Report ? Signed ? Patient: Elda Rios,Mariluz ?MR#: [id number] ?? [id number] ? : 1975 ?Acct:[id number] ? Age/Sex: 49 / F ?ADM Date: 07/04/24 ? Loc: HO.ED ? Attending Dr: ? Ordering Physician: Ting Sandra ?? Date of Service: 07/04/24 ?? Procedure(s): US venous duplex LE BI ?? Accession Number(s): [id number] ? cc: Ting Sandra; Kay Pedersen MD [...] DD/ 1447 ? TD/TT: 07/04/24 1456 ? Human Resources Executive Assistant: ? Procedure Note Dondiegoter, Image - 07/04/[address] [address] Ultrasound Report Signed Patient: Debo Pisano#: M [id number] : 1975Acct:[id number] Age/Sex: 49 / FADM Date: 07/04/24 Loc: .ED Attending Dr: Ordering Physician: Ting Sandra Date of Service: 07/04/24 Procedure(s): US venous duplex LE BI Accession Number(s): [id number] cc: Ting Sandra; Kay Pedersen MD EXAMINATION: [...] 07/04/24 1512 DD/ 1447 TD/TT: 07/04/24 1456 Human Resources Executive Assistant: [facility] External Provider CV VASC ULAR PROCEDURES Edited Result - Final Performing Organization Address [facility] Co de Phone Number [facility] [address] [place] [phone] * High Sensitivity Troponin I (07/04/2024 1:11 PM EDT) Pathologist [facility] TROPONIN I HIGH SENSITIVITY <2.7 <3.5 - 17.0 ng/L [facility] Comment:The [place] high sens itivity Troponin-I results should beused in conjunction with other diagnostic information suchas ECG, clinical observations and information, and patientsymptoms to aid in the diagnosis of [place]. 07/04/2024 1:11 PM EDT 07/04/2024 1:13 PM EDT Generic External Data Provider LAB BLOOD ORDERAB LES Final Result Performing Organization Address [facility] Co de Phone Number [facility] [address] [place] [phone] * SARS-CoV-2 RNA, Influenza A/B, and RSV RNA, Ql NAAT (07/04/2024 1:11 PM EDT) [facility] Influenza A PCR NEGATIVE Negative [facility] Influenza B PCR NEGATIVE Negative [facility] Resp Syncy Virus RNA Qual PCR NEGATIVE Negative [facility] SARS COV2 PCR NEGATIVE Negative [facility] Comment:All test results mus t [...] use by authorized laboratories.Testing performed on the [employer] LabsXpert utilizingreal-time RT-PCR.All SARS CoV2 and positive influenza A/B results arereported to [facility]. 07/04/2024 1:11 PM EDT 07/04/2024 2:05 PM EDT us Generic External Data Provider LAB MICROBIOLOGY - GENERAL ORDERABLES Final Result [facility] [address] [place] [address] [phone] * (ABNORMAL) CBC auto differential (07/04/2024 1:11 PM EDT) Only the most recent of2 resultswithin the time period is included. White Blood Count 7.7 4.8 - 10.8 X10*3/uL [facility] Red Blood Count 5.07 4.20 - 5.50 X10*6/uL [facility] Hemoglobin 14.1 12.0 - 16.0 g/dl [facility] Hematocrit 43.7 37.0 - 47.0 % [facility] Mean Corpuscular Volume 86.2 80.0 - 98.0 fL [facility] Mean Corpuscular Hemoglobin 27.8 27.0 - 33.0 pg [facility] Mean Corpuscular HGB Conc 32.3 31.0 - 35.0 g/dl [facility] Red Cell Distribution Width 13.8 11.0 - 16.0 % [facility] Platelet Count 266 160 - 400 X10*3/uL [facility] Mean Platelet Volume 10.5 9.4 - 12.3 fL [facility] Neutrophils Percent Auto 50.0 45 - 73 % [facility] Imm Gran Pct Auto 0.6(H) 0.0 - 0.4 % [facility] Lymphocytes Percent Auto 30.9 20 - 40 % [facility] Monocytes Percent Auto 5.7 2 - 11 % [facility] Eosinophils Percent Auto 11.6(H) 0 - 4 % [facility] Basophils Percent Auto 1.2 0 - 2 % [facility] NRBC Pct Auto 0.0 0.0 - 0.2 /100WBC [facility] Neutrophils Absolute Auto 3.9 2.0 - 8.3 x10*3/uL [facility] Imm Gran Abs Auto 0.05(H) 0.00 - 0.03 X10*3/uL [facility] Lymphocytes Absolute Auto 2.4 1.2 - 4.9 X10*3/uL [facility] Monocytes Absolute Auto 0.4 0.1 - 1.2 X10*3/uL [facility] Eosinophils Absolute Auto 0.9(H) 0.0 - 0.4 X10*3/uL [facility] Basophils Absolute Auto 0.1 0.0 - 0.2 X10*3/uL [facility] NRBC Abs Auto 0.000 0.0 - 0.012 X10*3/uL [facility] 07/04/2024 1:11 PM EDT 07/04/2024 1:23 PM EDT us Generic External Data Provider LAB BLOOD ORDERAB LES Final Result [facility] [address] [place] [phone] * (ABNORMAL) Prothrombin Time-INR (07/04/2024 1:11 PM EDT) Prothrombin Time 10.6(L) 10.9 - 12.4 SEC [facility] INTERNATIONAL NORM RATIO 0.9 0.9 - 1.1 [facility] Comment:INTERNATIONAL NORMAL IZED RATIO (INR) [...] ORDERAB LES Final Result Performing Organization Address [facility]/ZIP Co de Phone Number [facility] [address] [place] [phone] * B Type Natriuretic Peptide (BNP) (07/04/2024 1:11 PM EDT) [facility] B Type Natriuretic Peptide <10 <100 pg/mL [facility] 07/04/2024 1:11 PM EDT 07/04/2024 1:13 PM EDT Generic External Data Provider LAB BLOOD ORDERAB LES Final Result Performing Organization Address [facility] Co de Phone Number [facility] [address] [place] [phone] * Magnesium (07/04/2024 1:11 PM EDT) [facility] Magnesium 1.8 1.6 - 2.6 mg/dL [facility] 07/04/2024 1:11 PM EDT 07/04/2024 1:13 PM EDT Generic External Data Provider LAB BLOOD ORDERAB LES Final Result Performing Organization Address [facility] de Phone Number [facility] [address] [place] [phone] * (ABNORMAL) Comprehensive Metabolic Panel (07/04/2024 1:11 PM EDT) Only the most recent of2 resultswithin the time period is included. [facility] Sodium 142 135 - 145 mmol/L [facility] Potassium 3.2(L) 3.3 - 5.1 mmol/L [facility] Chloride 108 96 - 108 mmol/L [facility] Carbon Dioxide 24 22 - 29 mmol/L [facility] Anion Gap 13 12 - 20 [facility] Urea Nitrogen (BUN) 12 9 - 16 mg/dL [facility] Creatinine, Serum 0.69 0.5 - 1.4 mg/dL [facility] Creatinine Clr Calc Pharmacy 97.6 [facility] Comment:Provided height and weight: 149.86 cm,92 kg.eGFR (calculated from the MDRD study equation) and eCrCl(calculated from the Cockcroft-Gault equation) are based ondifferent parameters and may not yield comparable results.If eCrCl result is absurd, please check patient'sheight/weight. Estimated Glomerular Filt Rate >60 [facility] Comment:Chronic Kidney Disea se: Estimated GFR < 60 mL/min/1.83q8[place] Kidney Disease: Estimated GFR < 15 mL/min/1.73m2 Glucose 109 60 - 115 mg/dL [facility] Calcium 9.4 8.4 - 10.2 mg/dL [facility] Bilirubin, Total 0.4 0.0 - 1.0 mg/dL [facility] Aspartate Amino Transferase 29 5 - 31 U/L [facility] Alanine Aminotransferase 24 0 - 31 U/L [facility] Total Protein 7.0 6.5 - 8.0 g/dL [facility] Albumin Level 4.1 3.5 - 5.0 g/dL [facility] Alkaline Phosphatase 141(H) 39 - 117 U/L [facility] 07/04/2024 1:11 PM EDT 07/04/2024 1:13 PM EDT us Generic External Data Provider LAB BLOOD ORDERAB LES Final Result [facility] [address] [place] [phone] * Hold Lavender - Possible Hematology (07/04/2024 1:02 PM EDT) Hold Lavender - Possible Hematololgy SEE NOTE [facility] Comment:Specimen will be hel d untested for 8 hours. Call Hematologyif testing is desired. 07/04/2024 1:02 PM EDT 07/04/2024 1:16 PM EDT us Generic External Data Provider HISTORICAL/NON OR DERABLE LABS Final Result [facility] [address] [place] [phone] * XR Chest 2 Views (07/04/2024 12:39 PM EDT) Anatomical Region Laterality Modality Chest Radiographic Vika ging 07/04/2024 12:3 9 PM EDT Narrative 07/04/2024 12:56 PM EDT ? [facility] ?[address] ?[place] [address] ?XRay Report ? Signed ? Patient: Schroeder Colon,Mariluz ?MR#: M ?? [id number] ? : 1975 ?Acct:[id number] ? Age/Sex: 49 / F ?ADM Date: 07/04/24 ? Loc: HO.ED ? Attending Dr: ? Ordering Physician: Kamille Levine ?? Date of Service: 07/04/24 ?? Procedure(s): XR chest 2V ?? Accession Number(s): [id number] ? cc: Kamille Levine; Kay Pedersen MD [...] Chacho Pablo MD in OV> ? 07/04/24 1253 ? DD/ 1239 ? TD/TT: 07/04/24 1250 ? Human Resources Executive Assistant: ? Procedure Note Donotyakovter, Image - 07/04/[address] [address] XRay Report Signed Patient: Debo Pisano#: M [id number] : 1975Acct:[id number] Age/Sex: 49 / FADM Date: 07/04/24 Loc: HO.ED Attending Dr: Ordering Physician: Kamille Levine Date of Service: 07/04/24 Procedure(s): XR chest 2V Accession Number(s): [id number] cc: Kamille Levine; Kay Pedersen MD EXAMINATION: [...] 07/04/24 1253 DD/ 1239 TD/TT: 07/04/24 1250 Human Resources Executive Assistant: us [facility] External Provider IMG XR PROCEDURES Edited Result - Final * TSH with Reflex to Free T4 (05/30/2024 9:36 AM EDT) TSH reflex Free T4 2.15 0.32 - 4.0 uIU/mL [facility] Blood 05/30/2024 9:36 AM EDT 05/30/2024 11:06 AM EDT us Kya Pedersen MD LAB BLOOD ORDERABLES Final Resul t Performing Organization Address [facility] Co de Phone Number [facility] [address] [place] [phone] * (ABNORMAL) Lipid Panel with Reflex to Direct LDL (05/30/2024 9:36 AM EDT) Triglycerides 206(H) <150 mg/dL [facility] Comment:Desirable Triglyceri de: less than 150 mg/dLBorderline High Triglyceride 150-199 mg/dLHigh Triglyceride: 200-499 mg/dLVery High Triglyceride: greater than or equal to 5OO mg/dL Cholesterol 207(H) <200 mg/dL [facility] Comment:Desirable Cholestero l: less than 200 mg/dLBorderline High Cholesterol: 200-239 mg/dLHigh Cholesterol: greater than 239 mg/dL LDL Cholesterol Calculated 111(H) <100 mg/dL [facility] Comment:Desirable LDL: less than 100 mg/dLNear Optimal/Above Optimal LDL: 110- 129 mg/dLBorderline High LDL: 130-159 mg/dLHigh LDL: 160-189 mg/dLVery High LDL: greater than or equal to 190 mg/dL HDL Cholesterol 55 >40 mg/dL [facility] Comment:Desirable HDL: great er than 40 mg/dL Note: This HDL assay may give artificially low results in patients with liver disease. Blood 05/30/2024 9:36 AM EDT 05/30/2024 11:06 AM EDT us Kay Pedersen MD LAB BLOOD ORDERABLES Final Resul t Performing Organization Address [facility] Co de Phone Number [facility] [address] [place] [phone] * (ABNORMAL) C-reactive Protein (05/30/2024 9:36 AM EDT) C Reactive Protein 1.00(H) < or = 0.50 mg/dL [facility] 05/30/2024 9:36 AM EDT 05/30/2024 11:06 AM EDT Generic External Data Provider LAB BLOOD ORDERAB LES Final Result Performing Organization Address [facility] Co de Phone Number [facility] [address] [place] [phone] * Sed Rate by Modified Westergren (05/30/2024 9:16 AM EDT) Erythrocyte Sedimentation Rate 16 0 - 20 MM/HR [facility] Comment:Patients with polycy themia and many hemoglobin abnormalitiesmay have depressed sed rates whereas patients with anemiamay have elevated sed rates. 05/30/2024 9:16 AM EDT 05/30/2024 11:06 AM EDT Generic External Data Provider LAB BLOOD ORDERAB LES Final Result Performing Organization Address [facility] de Phone Number [facility] [address] [place] [phone] * (ABNORMAL) Hemoglobin A1c (05/30/2024 9:16 AM EDT) Hemoglobin A1c 6.6(H) <6.0 % [facility] Comment:Hemoglobin A1C Refer ence Range Adults: 4.8 - 6.0 % Non diabetic: < 6.0 % Goal: < 7.0 %Additional Action Suggested: > 8.0 %Note: Hemoglobin A1c results are invalid for patients with abnormal amounts of HbF. Blood transfusions may impact the HbA1c concentration in the patient sample. Estimated Average Glucose 143 mg/dL [facility] Comment:eAG = Estimated ave rage glucose which is %A1C expressed asaverage glucose, using the formula of the O4A-YjtbyrhBsrkasp Glucose study (ADAG), Diabetes Care, Vol.31,#8,2007 Blood Venous blood specimen / Unknown 05/30/2024 9:16 AM EDT 05/30/2024 11:06 AM EDT us Kay Pedersen MD LAB BLOOD ORDERABLES Final Resul t [facility] [address] [place] [phone] * BI Mammogram Screening Tomosynthesis Bilateral (06/01/2023 2:10 PM EDT) Anatomical Region Laterality Modality Breast Bilateral Mammography 06/01/2023 2:1 0 PM EDT Narrative 06/28/2023 5:48 AM EDT ? [facility] [place] ? [address] ?[place] ? Mammography Report ? Signed ? Patient: Schroeder Colon,Mariluz ?MR#: M ?? [id number] ? : 1975 ?Acct:[id number] ? Age/Sex: 47 / F ?ADM Date: 06/01/23 ? Loc: HO.MAMMO ? Attending Dr: Kay Pedersen MD ? Ordering Physician: Kay Pedersen MD ?Results: 1Negative ? Date of Service: 06/01/23 ?Follow Up: 1 Year From Orig ?? inal Mammogram ? Procedure(s): MM tomosynthesis screening BI ?? Accession Number(s): [id number] ? cc: Kay Pedersen MD ? EXAMINATION: ?? MM SCREENING DIGITAL BREAST TOMOSYNTHESIS, BILATERAL ? CLINICAL INFORMATION: ? Screening. Asymptomatic. ? COMPARISON: ?? Mammography: This study is compared with prior exams dating back to ?? 2018. ? TECHNIQUE: ?? Digital breast tomosynthesis is [...] 0544 ? DD/ 1410 ? TD/TT: ? Human Resources Executive Assistant: ? Procedure Note Steve, Clive - 06/28/2023 [facility] [address] [place] [address] [place] [address] Mammography Report Signed Patient: Debo Pisano#: M [id number] : 1975Acct:[id number] Age/Sex: 47 / FADM Date: 06/01/23 Loc: [facility]AN[facility] Attending Dr: Kay Pedersen MD Ordering Physician: Kay Pedersen MDResults: 1Negative Date of Service: 06/01/23Follow Up: 1 Year From Orig inal Mammogram Procedure(s): MM tomosynthesis screening BI Accession Number(s): [id number] cc: Kay Pedersen MD EXAMINATION: MM SCREENING [...] in OV> 06/28/23 0544 DD/ 1410 TD/TT: Human Resources Executive Assistant: Kay Pedersen MD IMG BI PROCEDURES Final Result * Hm Colonoscopy (11/09/2022) Colonoscopy Normal Normal 11/09/2022 Jacinto Daniel MD HEALTH MAINTENANCE Final Result * Hepatitis C Antibody Reflex (10/12/2022 11:06 AM EDT) Hepatitis C Antibody Nonreactive Nonreactive [facility] Comment:Antibodies to HCV no t detected; does not exclude early acuteHCV infection. 10/12/2022 11:0 6 AM EDT 10/12/2022 1:20 PM EDT Kay Pedersen MD LAB BLOOD ORDERABLES Final Resul t [facility] [address] [place] [phone] * HIV AB/AG (04/18/2019 11:04 AM [...] detection of this assay. ?? The [employer] Nurse HIV Ag/Ab Combo assay result and supplemental assay results should be interpreted in conjunction with the patient's clinical presentation, history and other laboratory results. ??If the results are inconsistent with clinical evidence, additional testing is suggested to confirm the result. 04/18/2019 11:0 4 AM EST us Tanner Reyes MD HISTORICAL/NON ORDERABLE LAB S Final Result Performing Organization Address [facility] Co de Phone Number [facility] [address] from Last 3 Months or Most Recently Relevant to Health Maintenance Insurance [facility] C3 Care Teams Dye Stand Loader Relationship Specialty Start Date End Date Kay Pedersen MD [address] [place] [address] PCP - General Family Medicine 09/10/22 Shadi Cabrera, PharmD [address] [place] [phone] Pharmacist Internal Medicine 05/31/23 Garrett Gilbert MD [address] [place] [address] [address] [place] [phone] Nephrology 06/18/24 Adryan Werner MD Mill Controller 06/18/24 Kerry Gallo Rheumatology 06/18/24
[2024-07-04 15:22] VITALS: BP 151/88; PULSE 101; RESP 18; TEMP 37.2; O2SAT 99
--- NOTE | 2024-07-04 15:29 | PC.NURSE ---
Report from GIO Mccoy, taken over care at this time.
[2024-07-04 16:00] VITALS: BP 151/88; PULSE 101; RESP 18; TEMP 37.2; O2SAT 99
[2024-07-04 16:12] VITALS: BP 151/88; PULSE 101; RESP 18; TEMP 37.2; O2SAT 99
== END 2024-07-04 16:13 | disposition home or self-care (01) ==
PROVIDERS: Physician Assistant Medical; Emergency Provider Emergency Medicine; PCP Family Medicine
DX: R60.0 Localized edema (principal); J18.9 Pneumonia, unspecified organism; R05.9 Cough, unspecified; Z03.818 Encounter for observation for suspected exposure to other biological agents ruled out
CPT/HCPCS: 0241U; 36415; 71046; 80053; 83735; 83880; 84484; 85025; 85610; 93005; 93970; 99284

== ENCOUNTER → 2024-07-04 12:39 | Outpatient (BNV) | payer MEDICAID, SELFPAY | PROVIDERS: PCP Family Medicine; Visit Provider Radiology Diagnostic Radiology | DX: R60.0 Localized edema (principal); R07.89 Other chest pain | CPT/HCPCS: 71046; 93970 ==

== ENCOUNTER → 2024-07-04 12:40 | Outpatient (BNV) | payer MEDICAID, SELFPAY | PROVIDERS: Emergency Provider Emergency Medicine; PCP Family Medicine; Visit Provider Internal Medicine Cardiovascular Disease | DX: R07.9 Chest pain, unspecified (principal); R94.31 Abnormal electrocardiogram [ECG] [EKG] | CPT/HCPCS: 93010 ==

== ENCOUNTER 2024-07-11 11:15 | Outpatient (AMB) | payer MEDICAID, SELFPAY ==
[2024-07-11 11:17] VITALS: BP 190/83; PULSE 105; O2SAT 100; BMI 40.8
--- NOTE | 2024-07-11 11:17 | A.OFFVIS_ITS ---
Vital Signs 07/11/24 11:17 Height 4 ft 11 in Weight 201 lb 15.095 oz BMI 40.8 BP 190/83 H Blood Pressure Location Lt brachial Position Sitting Pulse 105 H Pulse Source Pulse Oximeter Pulse Oximetry (%) 100 Oxygen Delivery Method Room Air Intake Visit Reasons: Follow up medication Intake Note: Pt presents to the office today for a follow up on medications. Allergies penicillin G [PENICILLIN G] Allergy (Severe, Verified 07/11/24 11:18) DIZZINESS tramadol Allergy (Severe, Verified 07/11/24 11:18) Vomiting and sweats HPI HPI Follow up medication: Details: 49-year-old female last seen by Madison Barakat in 2022 here for a ?follow-up on medications. This is my 1st contact with the patient. Her primary care provider is Dr. Dunham. PMX Asthma BONNIE Seropositive rheumatoid arthritis Fibromyalgia syndrome Hemorrhoids GERD * SURGICAL HISTORY EGD -2022 her son Cholecystectomy Tubal ligation Hysterectomy Colonoscopy-2022-son * ALLERGIES Penicillin Tramadol * [employer] LABS: Laboratory Tests 05/30/24 07/04/24 09:36 13:11 WBC 7.7 Hgb 14.1 Hct 43.7 MCV 86.2 Plt Count 266 Estimated GFR > 60 Total Bilirubin 0.4 AST 29 ALT 24 Alkaline Phosphatase 141 H TSH 2.15 LAST NOTE FROM MADISON BARAKAT 11/23/2022 Endoscopy Findings: gastritis esophagitis possible gastroparesis Colonoscopy Findings: internal hemorrhoids Plan: Await Pathology results Repeat Colonoscopy in 10 years or earlier if clinically indicated High fiber diet leaflet avoid straining at stool, epsom salts and sitz bath, anusol supps or cream GERD precaution, weight loss, review compliance and timing of PPI- can change preparation if needed Above findings were reviewed with the patient and relevant handouts were provided if indicated. Diagnosis A. Stomach, biopsy: Oxyntic mucosa with moderate chronic inactive inflammation; no Helicobacter organisms seen. B. GE junction, biopsy: - Cardiofundic-type mucosa with mild chronic inactive inflammation; no intestinal metaplasia seen. - No squamous epithelium present. C. Esophagus, distal, biopsy: Active esophagitis (occasional eosinophils and neutrophils). D. Esophagus, proximal, biopsy: Squamous epithelium within normal limits; no inflammation seen. Assessment & Plan Assessment & Plan (1) Acid reflux: Comment: Consistent ppi switched to Omeprazole 30 mg Reflux precautions= again reviewed Encouraged Dietary modifications Avoid weight gain Code(s): K21.9 - Gastro-esophageal reflux disease without esophagitis (2) Hemorrhoids: Comment: hydrocortisone 2.5% (Proctosol HC) HFD avoid strain Code(s): K64.9 - Unspecified hemorrhoids (3) Esophagitis: Code(s): K20.90 - Esophagitis, unspecified without bleeding (4) Early satiety: Code(s): R68.81 - Early satiety Plan FODMAP GES Orders: Orders NM gastric emptying study Today K21.9 - Gastro-esophageal reflux disease without esophagitis, R68.81 - Early satiety Medications: New omeprazole 40 mg (2 x 20 mg) PO DAILY 30 days 60 caps 5RF Patient Instructions: Omeprazole 40 mg Reflux precautions HFD FOD map- try to ID culprits GASTRIC EMPTYING STUDY 12/08/2022 IMPRESSION: Normal 4-hour solid food gastric emptying study. ULTRASOUND OF THE ABDOMEN 12/2023 FINDINGS: PANCREAS: The visualized pancreas appears unremarkable but the pancreatic tail is obscured by bowel gas. ABDOMINAL AORTA: The proximal, middle, and distal aortic segments are normal in caliber. INFERIOR VENA CAVA: Visualized portions are normal. LIVER: The liver demonstrates is enlarged measuring at least 20 cm in greatest length with increased echogenicity consistent with hepatic steatosis. No focal lesion or intrahepatic biliary duct dilatation. The right lobe measures 20.2 cm in length. The left lobe measures 4.7 cm in length. Portal flow is towards the liver (hepatopetal). Shear wave liver elastography median stiffness is 1.11 m/s (reference: normal median stiffness is 1.3 m/s or less). IQR/median stiffness to assess sampling precision is 0.23 (reference: good quality data set is IQR/median stiffness of 0.15 or less). GALLBLADDER: The gallbladder is physiologically distended without evidence of stones, sludge, polyps, wall thickening or pericholecystic fluid. COMMON BILE DUCT: Normal in caliber measuring 0.9 cm in diameter. RIGHT KIDNEY: No hydronephrosis. No renal calculi or focal parenchymal lesions. The kidney measures 12.0 cm in maximum dimension. LEFT KIDNEY: No hydronephrosis. No renal calculi or focal parenchymal lesions. The kidney measures 11.5 cm in maximum dimension. SPLEEN: Unremarkable. The spleen measures 10.9 cm in maximum dimension. FREE FLUID: None. US/US abdomen comp w elastography IMPRESSION: 1. Enlarged echogenic liver consistent with hepatic steatosis 2. Liver elastography: Although measurements suggest a high probability of normal liver stiffness, there is statistical variability of the sampling which decreases accuracy. TODAY'S VISIT [facility] #[id number] She has never had a barium swallow. But she is having no dysphagia. Feels bid o2o is working well. No other c/o. she feels the omeprazole is working well to control her GI symptoms. Repeat colonoscopy 10 years. The procedure was well tolerated. The results were explained and the patient is agreeable to the follow-up interval as stated. The bowel pattern has returned to normal. Education was provided to tell any 1st degree relatives about their findings to be sure that they are screened by age 45. Educated that they will be put on a recall list when it is time for their repeat scope but should they move out of state or away from the hospital they will need to remember along with their primary to repeat the procedure in a timely fashion to avoid any adverse complications. ROV 6 mos. PFSH Medical History (Updated 07/11/24 @ 17:15 by FARHAT Fitzgerald) Irritable bowel Esophagitis Early satiety Thoracic degenerative disc disease Back pain Asthma Fibromyalgia Sleep apnea Seropositive rheumatoid arthritis Arthritis Diarrhea Surgical History History of esophagogastroduodenoscopy (EGD) History of laparoscopic cholecystectomy Hx of tubal ligation History of partial hysterectomy Hx of endoscopy History of colonoscopy Family History Father No problems noted. Mother History of high blood pressure Social History Household Members: None Housing: Apartment Do you presently have visiting nurse or other home services: No Alcohol intake: current Alcohol intake frequency: holidays/special occasions only Alcohol type: beer and wine Patient Tobacco Use Status: Former Tobacco user Tobacco use type: Cigarette e-Cigarette/Vaping Use: Never Used Substance Use Type: Marijuana Advance Directives Date on File: 09/12/23 service: No Current occupational status: disabled Review of Systems Const Denies fatigue, Denies fever(s), Denies night sweats, Denies poor appetite and Denies weight loss ENT Reports Normal hearing present, Denies dental pain, Denies dysphagia, Denies hearing loss, Denies mouth pain, Denies odynophagia, Denies throat swelling, Denies tongue swelling and Reports other (Dentition adequate) Card Reports no additional complaints Resp Reports no additional complaints GI Details: Denies abdominal pain, Denies melena, Denies bloating, Denies hematochezia, Denies constipation, Denies GI cramping, Denies dysphagia, Denies excessive flatus, Denies early satiety, Reports heartburn, Denies diarrhea, Denies nausea, Denies odynophagia, Denies vomiting and Denies hematemesis Skin/Breast Denies pruritus, Denies lesions, Denies rash and Denies jaundice Neuro Reports Normal hearing present and Denies Abnormal speech present Endo Denies fatigue Aller/Immun Denies throat swelling and Denies tongue swelling Physical Exam Vital Signs: Last Vital Signs Pulse 105 H 07/11/24 11:17 BP 190/83 H 07/11/24 11:17 Pulse Ox 100 07/11/24 11:17 Oxygen Delivery Method Room Air 07/11/24 11:17 BMI result Body Mass Index 40.8 Const General: cooperative, no acute distress, well developed and well groomed Nutritional Appearance: well nourished and obese Orientation/consciousness: oriented to person, oriented to place and oriented to time Limitations: language barrier HEENT Head: Yes normocephalic and Yes atraumatic Eyes General: appearance normal, both eyes and all related structures Pupils: Equal, round and reactive pupils present Neck Neck: Yes normal visual inspection and Yes no lymphadenopathy Thyroid: Thyroid normal Resp Effort & Inspection: normal respiratory effort and able to speak in complete sentences Auscultation: clear to auscultation bilaterally Cardio Rate: regular rate Rhythm: regular rhythm Heart sounds: Normal, physiologic split S2 sound present Peripheral pulses: radial pulses present and posterior tibial pulses present GI Inspection: No distended, Yes Abdominal panniculus present and Yes obesity Palpation (GI): Soft to palpation, nontender, no guarding, not rigid and No hepatosplenomegaly present Percussion: Yes normal to percussion Auscultation: normal bowel sounds Rectal Exam - Female: deferred Skin General skin exam: no rashes or lesions noted, turgor normal, skin not dry, no jaundice, No spider nevi and no striae Rashes: no rashes Nails: normal Neuro General: oriented to person, oriented to place and oriented to time Cranial nerves: Yes Equal, round and reactive pupils present and Yes Normal hearing present Speech: No Abnormal speech present Extrem General: Yes normal to inspection, No clubbing, No cyanosis and No edema Psych Appearance: grossly normal and well kempt Mental Status: mental status grossly normal Speech and movement: Normal speech and movement present Affect: normal affect Attitude: cooperative Thought process: Normal thought process present and not confabulating Thought content: Normal thought content present Insight: Limited insight present (Psych) Judgement: Limited judgement present (Psych) Results Reviewed Results Reviewed: Laboratory Tests 05/30/24 07/04/24 09:36 13:11 WBC 7.7 Hgb 14.1 Hct 43.7 MCV 86.2 Plt Count 266 Estimated GFR > 60 Total Bilirubin 0.4 AST 29 ALT 24 Alkaline Phosphatase 141 H TSH 2.15 LAST NOTE FROM MADISNO BARAKAT 11/23/2022 Endoscopy Findings: gastritis esophagitis possible gastroparesis Colonoscopy Findings: internal hemorrhoids Plan: Await Pathology results Repeat Colonoscopy in 10 years or earlier if clinically indicated High fiber diet leaflet avoid straining at stool, epsom salts and sitz bath, anusol supps or cream GERD precaution, weight loss, review compliance and timing of PPI- can change preparation if needed Above findings were reviewed with the patient and relevant handouts were provided if indicated. Diagnosis A. Stomach, biopsy: Oxyntic mucosa with moderate chronic inactive inflammation; no Helicobacter organisms seen. B. GE junction, biopsy: - Cardiofundic-type mucosa with mild chronic inactive inflammation; no intestinal metaplasia seen. - No squamous epithelium present. C. Esophagus, distal, biopsy: Active esophagitis (occasional eosinophils and neutrophils). D. Esophagus, proximal, biopsy: Squamous epithelium within normal limits; no inflammation seen. Assessment & Plan Assessment & Plan (1) Acid reflux: Comment: Consistent ppi switched to Omeprazole 30 mg Reflux precautions= again reviewed Encouraged Dietary modifications Avoid weight gain Code(s): K21.9 - Gastro-esophageal reflux disease without esophagitis (2) Hemorrhoids: Comment: hydrocortisone 2.5% (Proctosol HC) HFD avoid strain Code(s): K64.9 - Unspecified hemorrhoids (3) Esophagitis: Code(s): K20.90 - Esophagitis, unspecified without bleeding (4) Early satiety: Code(s): R68.81 - Early satiety Plan FODMAP GES Orders: Orders NM gastric emptying study Today K21.9 - Gastro-esophageal reflux disease without esophagitis, R68.81 - Early satiety Medications: New omeprazole 40 mg (2 x 20 mg) PO DAILY 30 days 60 caps 5RF Patient Instructions: Omeprazole 40 mg Reflux precautions HFD FOD map- try to ID culprits GASTRIC EMPTYING STUDY 12/08/2022 IMPRESSION: Normal 4-hour solid food gastric emptying study. ULTRASOUND OF THE ABDOMEN 12/2023 FINDINGS: PANCREAS: The visualized pancreas appears unremarkable but the pancreatic tail is obscured by bowel gas. ABDOMINAL AORTA: The proximal, middle, and distal aortic segments are normal in caliber. INFERIOR VENA CAVA: Visualized portions are normal. LIVER: The liver demonstrates is enlarged measuring at least 20 cm in greatest length with increased echogenicity consistent with hepatic steatosis. No focal lesion or intrahepatic biliary duct dilatation. The right lobe measures 20.2 cm in length. The left lobe measures 4.7 cm in length. Portal flow is towards the liver (hepatopetal). Shear wave liver elastography median stiffness is 1.11 m/s (reference: normal median stiffness is 1.3 m/s or less). IQR/median stiffness to assess sampling precision is 0.23 (reference: good quality data set is IQR/median stiffness of 0.15 or less). GALLBLADDER: The gallbladder is physiologically distended without evidence of stones, sludge, polyps, wall thickening or pericholecystic fluid. COMMON BILE DUCT: Normal in caliber measuring 0.9 cm in diameter. RIGHT KIDNEY: No hydronephrosis. No renal calculi or focal parenchymal lesions. The kidney measures 12.0 cm in maximum dimension. LEFT KIDNEY: No hydronephrosis. No renal calculi or focal parenchymal lesions. The kidney measures 11.5 cm in maximum dimension. SPLEEN: Unremarkable. The spleen measures 10.9 cm in maximum dimension. FREE FLUID: None. US/US abdomen comp w elastography IMPRESSION: 1. Enlarged echogenic liver consistent with hepatic steatosis 2. Liver elastography: Although measurements suggest a high probability of normal liver stiffness, there is statistical variability of the sampling which decreases accuracy. Assessment & Plan Assessment & Plan (1) Esophagitis: Code(s): K20.90 - Esophagitis, unspecified without bleeding Category: Medical (2) GERD with esophagitis: Code(s): K21.00 - Gastro-esophageal reflux disease with esophagitis, without bleeding Category: Medical Plan [facility] #[id number] She is here today with her who is supportive. She has never had a barium swallow. But she is having no dysphagia. Feels bid o2o is working well. No other c/o. she feels the omeprazole is working well to control her GI symptoms. She wants to review her endoscopy/colonoscopy in her HIDA scan since she says these were not reviewed with her in the past. Repeat colonoscopy 10 years. The procedure was well tolerated. The results were explained and the patient is agreeable to the follow-up interval as stated. The bowel pattern has returned to normal. Education was provided to tell any 1st degree relatives about their findings to be sure that they are screened by age 45. Educated that they will be put on a recall list when it is time for their repeat scope but should they move out of state or away from the hospital they will need to remember along with their primary to repeat the procedure in a timely fashion to avoid any adverse complications. ROV 6 mos. Medications: Changed From omeprazole 40 mg (2 x 20 mg) PO QAM 30 caps 2RF K20.90 - Esophagitis, unspecified without bleeding To omeprazole 40 mg (2 x 20 mg) PO QAM 180 caps 1RF 90 days K20.90 - Esophagitis, unspecified without bleeding Coding Level of Care Code Est Pt Level 4 (73847) Diagnoses Esophagitis K20.90 GERD with esophagitis K21.00 Time Spent (min) 33
--- OUTSIDE RECORDS SUMMARY | 2024-07-11 12:45 | XMS_ITS | Encounter Summary ---
Author Organization [employer] Address [address] [place] [address] Care Team Providers Care Entry Level Electrician Name Role Phone Kay Pedersen MD Primary Care Provider [phone] Shadi Cabrera PharmD Unavailable [phone] Garrett Gilbert MD Unavailable [phone] Reason for Visit * Reason Comments Med Refill Encounter Details Date Type Department Care Team (Late st Contact Info) Description 06/22/2023 Refill [facility]BILE VACCINE CLINIC [address] [place], [place] [phone] Kay Pedersen MD [address] [place], [place] [phone] Earache; Moderate persistent asthma without complication Social [...] Description 08/16/2024 1:00 PM EDT Office Visit [facility] MEDICINE [address] [place] [phone] Marifer Pearson CNM [address] [place] [address] 09/10/2024 1:45 PM EDT Office Visit [address] [address] Kay Pedersen MD [address] [place] [address] documented as of this encounter Goals Goal [...] documented as of this encounter Care Teams Entry Level Electrician Relationship Specialty Start Date End Date Kay Pedersen MD [address] [place] [address] [phone] PCP - General Family Medicine 09/10/22 Shadi Cabrera, PharmD [address] [place] [address] Pharmacist Internal Medicine 05/31/23 Garrett Gilbert MD [address] [place] [address] Drive [address] [place] [address] Nephrology 06/18/24 Adryan Werner MD Rn Field 06/18/24 Kerry Gallo Rheumatology 06/18/24 documented as of this encounter
--- OUTSIDE RECORDS SUMMARY | 2024-07-11 12:45 | XMS_ITS | Encounter Summary ---
Author Organization [employer] Address [address] [facility] 7t [place] [address] Care Team Providers Care Tower Helper Name Role Phone Jasmine Rodriguez Marian CONDE Primary Care Provider [phone] Kay Pedersen MD Primary Care Provider [phone] Shadi Cabrera PharmD Unavailable [phone] Garrett Gilbert MD Unavailable [phone] Encounter Details Date Type Department Care Team (Late Contact Info) Description 05/24/2022 Orders Only [facility] MED & PEDS [address] [place] [address] Iliana Geller LPN Social History Tobacco Use [...] Description 08/16/2024 1:00 PM EDT Office Visit [facility] MEDICINE [address] [place] [address] [phone] Marifer Pearson CNM [address] [place], [place] [phone] 09/10/2024 1:45 PM EDT Office Visit [facility] MEDICINE [address] [place] [address] [phone] Kay Pedersen MD [address] [place], [place] [phone] documented as of this encounter Visit Diagnoses Not on filedocumented in this encounter Care Teams Tower Helper Relationship Specialty Start Date End Date Jasmine Rodriguez FNP PCP - General Family Medicine 01/25/22 09/09/22 Kay Pedersen MD [address] [place] [address] PCP - General Family Medicine 09/10/22 Shadi Cabrera PharmD [address] [place] [address] Pharmacist Internal Medicine 05/31/23 Garrett Gilbert MD [address] [place] [address] Drive [address] [place] [address] Nephrology 06/18/24 Adryan Werner MD Dispatcher Refinery 06/18/24 Kerry Gallo Rheumatology 06/18/24 documented as of this encounter
--- OUTSIDE RECORDS SUMMARY | 2024-07-11 12:45 | XMS_ITS ---
Author Organization [employer] Address [address] [facility] 7t [place] [address] Care Team Providers Care Medical Screener Name Role Phone Kay Pedersen MD Primary Care Provider [phone] Shadi Cabrera PharmD Unavailable [phone] Garrett Gilbert MD Unavailable [phone] CHW Complex Status:Outreach In Progress (Enrolling) Start date:07/05/2024 Enrollment reason:ADT Feed Overview ADT- [facility] ED 07/04/24. Please outreach for enrollment. Case Team Name Relationship Phone Lynn Sandoval (Responsible Staff) [phone] Continued Care and Services Coordination
--- OUTSIDE RECORDS SUMMARY | 2024-07-11 12:45 | XMS_ITS | Encounter Summary ---
Author Organization [employer] Address [address] [place] [address] Care Team Providers Care Hospital Pharmacy Director Name Role Phone Kay Pedersen MD Primary Care Provider [phone] Shadi Cabrera PharmD Unavailable [phone] Garrett Gilbert MD Unavailable [phone] Reason for Visit * Reason Comments Med Refill Encounter Details Date Type Department Care Team (Late st Contact Info) Description 06/30/2023 Refill [facility] MOBILE VACCINE CLINIC [address] [place], [place] [phone] Kay Pedersen MD [address] [place], [place] [phone] Earache Social History Tobacco Use Types Packs/Day [...] Description 08/16/2024 1:00 PM EDT Office Visit [facility] MEDICINE [address] [place] [address] Marifer Pearson CNM [address] [place] [address] 09/10/2024 1:45 PM EDT Office Visit [address] [address] Kay Pedersen MD [address] [place] [address] documented as of this encounter Goals Goal [...] documented as of this encounter Care Teams Hospital Pharmacy Director Relationship Specialty Start Date End Date Kay Pedersen MD [address] [place] [address] PCP - General Family Medicine 09/10/22 Shadi Cabrera, PharmD [address] [place] [address] Pharmacist Internal Medicine 05/31/23 Garrett Gilbert MD [address] [place] [address] [place] [address] Nephrology 06/18/24 Adryan Werner MD Data Warehouse Consultant 06/18/24 Kerry Gallo Rheumatology 06/18/24 documented as of this encounter
--- OUTSIDE RECORDS SUMMARY | 2024-07-11 12:45 | XMS_ITS | Encounter Summary ---
Author Organization [employer] Address [address] [facility] [address] [facility] [place] [address] Care Team Providers Care Furniture Upholstery Mechanic Name Role Phone Kay Pedersen MD Primary Care Provider [phone] Shadi Cabrera PharmD Unavailable [phone] Garrett Gilbert MD Unavailable [phone] Encounter Details Date Type Department Care Team ([facility] st Contact Info) Description 07/05/2024 Orders Only [facility] MEDICINE [address] [place], [place] [phone] Kay Pedersen MD [address] [place], [place] [phone] Pneumonia of right middle lobe due to infectious organism (Primary Dx) Social History Tobacco Use Types [...] Description 08/16/2024 1:00 PM EDT Office Visit [facility] MEDICINE [address] [place] [phone] Marifer Pearson CNM [address] [place] [address] 09/10/2024 1:45 PM EDT Office Visit [facility] MEDICINE [address] [place] [phone] Kay Pedersen MD [address] [place], [place] [phone] Scheduled Orders Name Type Priority Associated Diagnoses Orde r Schedule XR Chest 2 Views Imaging Routine Pneumonia of right middle lobe due to infectious organism Expected: 07/05/2024, Expires: 07/05/2025 documented as of this encounter Goals Goal Patient Goal Type Associated Problems Recent Progress Patient-Stated? Author Blood Pressure < 140/90 Blood Pressure 132/80( 025 2:10 PM EDT) No Shadi Cabrera, PharmD documented as of this encounter Visit Diagnoses Diagnosis Pneumonia of right middle lobe due to infectious organism- Primary documented in this encounter Additional Health Concerns Assessment Noted Time PHQ-9 Depression Total Score: 10 025 9:30 AM EST documented as of this encounter Care Teams Furniture Upholstery Mechanic Relationship Specialty Start Date End Date Kay Pedersen MD [address] [place] [address] PCP - General Family Medicine 09/10/22 Shadi Cabrera, Solange [address] [place] [address] Pharmacist Internal Medicine 05/31/23 Garrett Gilbert MD [address] [place] [address] Nephrology 06/18/24 Adryan Werner MD Medical Assistant Supervisor 06/18/24 Kerry Gallo Rheumatology 06/18/24 documented as of this encounter
--- OUTSIDE RECORDS SUMMARY | 2024-07-11 12:45 | XMS_ITS | Encounter Summary ---
Author Organization [facility] Address [address] [place] [address] Care Team Providers Care Oracle Reports Developer Name Role Phone Kay Pedersen MD Primary Care Provider [phone] Shadi Cabrera PharmD Unavailable [phone] Garrett Gilbert MD Unavailable [phone] Encounter Details Date Type Department Care Team (Late st Contact Info) Description 06/07/2023 Orders Only [facility] [address] [place], [place] [phone] Kay Pedersen MD [address] [place], [place] [phone] Social History Tobacco Use Types Packs/Day Years [...] Description 08/16/2024 1:00 PM EDT Office Visit [facility] [address] [place] [phone] Marifer Pearson CNM [address] [place] [phone] 09/10/2024 1:45 PM EDT Office Visit [address] [id number] Kay Pedersen MD [address] [place] [address] [phone] documented as of this encounter Goals Goal [...] documented as of this encounter Care Teams Oracle Reports Developer Relationship Specialty Start Date End Date Kay Pedersen MD [address] [place] [address] [phone] PCP - General Family Medicine 09/10/22 Shadi Cabrera PharmD [address] [place] [address] [phone] Pharmacist Internal Medicine 05/31/23 Garrett Gilbert MD [address] [place] [address] Drive [address] [place] [address] Nephrology 06/18/24 Adryan Werner MD Assistant Banquet Manager 06/18/24 Kerry Gallo Rheumatology 06/18/24 documented as of this encounter
--- OUTSIDE RECORDS SUMMARY | 2024-07-11 12:45 | XMS_ITS | Clinical Summary ---
Author Organization [employer] Address [address] [facility] [address] [place] [address] Care Team Providers Care Patient Financial Rep Name Role Phone Kay Pedersen MD Primary Care Provider [phone] Shadi Cabrera PharmD Unavailable Garrett Gilbert MD Unavailable [phone] Allergies Active Allergy Reactions Criticality Noted [...] mouth in the morning. 90 tablet 3 3 Active ARIPiprazole (Abilify) 20 MG tablet Take 1 tablet (20 mg) by mouth in the morning. 90 tablet 1 3 Active cloNIDine (Catapres) 0.1 MG tablet Take 1 tablet (0.1 mg) by mouth 2 times daily. 180 tablet 1 3 Active Blood Pressure Monitor kit Check blood pressure once daily and as needed 1 kit 3 Active Symbicort 160-4.5 MCG/ACT inhaler INHALE 2 PUFFS BY MOUTH TWICE DAILY. RINSE MOUTH AFTER USING. 3 Active SM Fiber Laxative 500 MG tablet TAKE 1 TABLET BY MOUTH TWICE DAILY IN THE MORNING AND IN THE EVENING 3 Active omeprazole (PriLOSEC) [address] capsule TAKE 2 CAPSULES BY MOUTH ONCE DAILY IN THE MORNING 3 Active albuterol (ProAir HFA) 108 (90 Base) MCG/ACT inhaler inhale 2 puff by inhalation route every 4 - 6 hours as needed 2 Active omega-3 (Fish Oil) 1000 MG capsule Take 1,000 mg by mouth in the morning. Purchases OTC Active cyclobenzaprine (Flexeril) 10 MG tabletIndications: Muscle spasm TAKE 1 TABLET BY MOUTH ONCE DAILY 3 HOURS BEFORE BEDTIME 30 tablet 1 4 Active DULoxetine (Cymbalta) [address] capsule TAKE 2 CAPSULES BY MOUTH ONCE DAILY IN THE MORNING 4 Active leflunomide (Arava) 10 MG tablet Take 10 mg by mouth Once per day. Active losartan (Cozaar) 50 MG tabletIndications: Hypertension, unspecified type Take 1 tablet (50 mg) by mouth Once per day. 90 tablet 3 4 Active amLODIPine (Norvasc) 10 MG tabletIndications: Primary hypertension Take 1 tablet (10 mg) by mouth Once per day. 90 tablet 3 4 Active prazosin (Minipress) 1 MG capsule Take 1 mg by mouth at bedtime. 4 Active montelukast (Singulair) 10 MG tabletIndications: Moderate persistent asthma without complication TAKE 1 TABLET BY MOUTH AT BEDTIME 90 tablet 1 4 Active atorvastatin (Lipitor) 40 MG tabletIndications: Mixed hyperlipidemia TAKE 1 TABLET BY MOUTH AT BEDTIME 90 tablet 1 4 Active guaiFENesin (Humibid 3) 400 MG tablet Take 1 tablet (400 mg) by mouth every 6 (six) hours if needed for cough. 20 tablet 5 Active albuterol (2.5 MG/3ML) 0.083% nebulizer solution INHALE 1 AMPULE USING A NEBULIZER EVERY 4 HOURS NEEDED FOR WHEEZING 90 mL 1 5 Active potassium chloride CR (Klor-Con M20) 20 MEQ ER tablet TAKE 1 TABLET BY MOUTH ONCE DAILY DIRECTED 30 tablet 1 5 Active hydrOXYzine HCl (Atarax) 25 MG tablet TAKE 1 TABLET BY MOUTH EVERY TWELVE HOURS NEEDED FOR ANXIETY 60 tablet 1 5 Active Tirzepatide-Weight Management (Zepbound) 2.5 MG/0.5ML solution auto-injector Inject 0.5 mL (2.5 mg) under the skin 1 (one) time per week. 2 mL 5 Active Alcohol Swabs (Alcohol Prep) pads Use when checking blood sugar 100 each 5 Active FreeStyle lancets 1 each by Other route Once per day. 100 each 5 Active FREESTYLE LITE test strip Check blood glucose 100 each 5 Active Blood Glucose Monitoring Suppl (FreeStyle Lite) w/Device kit 1 Device Once per day. 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 She has also been scheduled [...] (06/06/2024 11:02 AM EDT): - following with [facility] [place] Rheumatology, last seen on 03/04/24 - previously taking methotrexate - currently taking leflunomide - patient did not take leflunomide from 09/03/23 to 11/01/23 due to sepsis and cellulitis - continue current treatment plan Assessment & Plan (03/10/2024 6:33 PM EST): - following with [facility] [place] Rheumatology, last seen on 03/04/24 - previously taking methotrexate - currently taking leflunomide - patient did not take leflunomide from 09/03/23 to 11/01/23 due to sepsis and cellulitis - continue current treatment plan Assessment & Plan (11/25/2023 4:46 PM EDT): - following with [facility] [place] Rheumatology, last seen on 11/01/23 - previously taking methotrexate - currently taking leflunomide - patient did not take leflunomide from 09/03/23 to 11/01/23 due to sepsis and cellulitis - continue current treatment plan Assessment & Plan (05/01/2023 11:33 AM EST): - following with [facility] [place] Rhuematology - previously taking methotrexate - currently taking leflunomide - continue current treatment plan Assessment & Plan (01/31/2023 5:59 AM EST): - following with [facility] [place] Rhuematology - previously taking methotrexate - currently taking leflunomide - continue current treatment plan Assessment & Plan (10/14/2022 10:30 AM EDT): - following with [facility] [place] Rhuematology - previously taking methotrexate - currently [...] with prednisone. No antibiotic. - following with [facility] pulmonology, last seen in Mar 2024 - [...] with prednisone. No antibiotic. - following with [facility] pulmonology, last seen in Jan [...] short course of prednisone - following with [facility] pulmonology - Continue budesonide / formoterol (Symbicort) as maintenance - Continue albuterol as rescue - Continue montelukast Assessment & Plan (04/25/2023 3:28 PM EST): - following with [facility] pulmonology - Continue budesonide / formoterol (Symbicort) as maintenance - Continue albuterol as rescue - Continue montelukast Assessment & Plan (01/31/2023 5:56 AM EST): - following with [facility] pulmonology - Continue Symbicort as maintenance - Continue albuterol as rescue - Continue montelukast Assessment & Plan (10/14/2022 9:40 AM EDT): - following with [facility] pulmonology - Continue Symbicort as [...] Encounters Date Type Department Care Team Description 07/05/2024 Orders Only [facility] MEDICINE [address] [place] [phone] Kay Pedersen MD Pneumonia of right middle lobe due to infectious organism (Primary Dx) 07/05/2024 Patient Outreach [facility] [address] [place] [address] Kay Pedersen MD Care Coordination (CM/CHW outreach) 07/05/2024 Patient Outreach [facility] [place] [address] Kay Pedersen MD 07/05/2024 Patient Outreach [facility] [place] [address] Kay Pedersen MD Care Management ([facility]- chart review) 07/05/2024 Patient Outreach [facility] [place] [address] Kay Pedersen MD 07/04/2024 Orders Only [facility] External Provider, [facility] 07/04/2024 Telephone [facility] [place] [address] Kay Pedersen MD Nurse Triage 06/18/2024 Telephone [facility] [place] [address] Vinita Pablo RN Care Coordination 06/08/2024 Refill [facility] [place] [address] Kay Pedersen MD 06/05/2024 1:30 PM EDT Office Visit [facility] [place] [address] Kay Pedersen MD Obstructive sleep apnea syndrome (Primary [...] External Data 05/18/2024 Population Health Risk Score Community Care [facility] ([facility] Department [address] [place] [phone] Provider, Population Health Generic 05/12/2024 Refill [facility] [place] [place] [address] Kay Pedersen MD 05/08/2024 Refill [facility] MEDICINE [address] [place] [address] Kay Pedersen MD from Last 3 Months [...] is your housing situation today? I have riverajam collins 12/20/[address] you [...] Description 08/16/2024 1:00 PM EDT Office Visit [facility] MEDICINE [address] [place] [phone] Marifer Pearson CNM [address] [place] [address] 09/10/2024 1:45 PM EDT Office Visit [facility] MEDICINE [address] [place] [phone] Kay Pedersen MD [address] [place] [address] Health Maintenance Due Date Last Done Comments CT Colonography 1975 FIT DNA/Cologuard 1975 FIT 1975 FOBT 1975 Sigmoidoscopy 1975 Family Planning (PISQ) 06/28/1990 COVID-19 Vaccine ( season) 2023 04/12/2022, 01/26/2021, 01/05/2021 Hepatitis A Vaccines (2 of 2 - Risk 2-dose series) 09/09/2024 03/12/2024 Alcohol/Substance Use Screening 03/12/2025 03/12/2024 Depression Screening 03/21/2025 03/21/2024, 03/21/19 Diabetes: Hemoglobin A1C 05/30/2025 025, 10/05/2023, 10/12/2022, [...] Blood Pressure 132/80( 025 2:10 PM EDT) Shadi Paris, Solange Procedures Procedure Name Priority Date/Time Associated [...] (BMI) of 35.0 to 35.9 in adult (CMS/[facility]) SED RATE BY MODIFIED WESTERGREN Routine 05/30/2024 [...] PM EDT) 07/04/2024 2:47 PM EDT Narrative [facility] - 07/04/2024 3:15 PM EDT ? [facility] ?[address] ?[place] [address] ? Ultrasound Report ? Signed ? Patient: Schroeder Colon,Mariluz ?MR#: M ?? [id number] ? : 1975 ?Acct:[id number] ? Age/Sex: 49 / F ?ADM Date: 04/30/25 ? Loc: HO.ED ? Attending Dr: ? Ordering Physician: Ting Sandra ?? Date of Service: 07/04/24 ?? Procedure(s): US venous duplex LE BI ?? Accession Number(s): [id number] ? cc: Ting Sandra; Kay Pedersen MD [...] Kovacs MD ??07/04/2024 03:12 PM ?? EDT ? Dictated By: ?Chacho Lyon MD ? Signed By: ?<Electronically signed by Chacho Pablo MD in OV> ? 07/04/24 1512 ? DD/ 1447 ? TD/TT: 07/04/24 1456 ? Board Winder: ? Procedure Note Clive Wilson - 07/04/2024 [place] [address] Ultrasound Report Signed Patient: Debo Pisano#: M [id number] : 1975Acct:[id number] Age/Sex: 49 / FADM Date: 07/04/24 Loc: HO.ED Attending Dr: Ordering Physician: Ting Sandra Date of Service: 07/04/24 Procedure(s): US venous duplex LE BI Accession Number(s): [id number] cc: Ting Sandra; Kay Pedersen MD EXAMINATION: [...] 07/04/24 1512 DD/ 1447 TD/TT: 07/04/24 1456 Board Winder: [facility] External Provider CV VASC ULAR PROCEDURES Edited Result - Final Performing Organization Address [facility]/ZIP Co de Phone Number [facility] [address] [place] [phone] * High Sensitivity Troponin I (07/04/2024 1:11 PM EDT) Pathologist [facility] TROPONIN I HIGH SENSITIVITY <2.7 <3.5 - 17.0 ng/L [facility] Comment:The [place] high sens itivity Troponin-I results should beused in conjunction with other diagnostic information suchas ECG, clinical observations and information, and patientsymptoms to aid in the diagnosis of HI. 07/04/2024 1:11 PM EDT 07/04/2024 1:13 PM EDT Generic External Data Provider LAB BLOOD ORDERAB LES Final Result Performing Organization Address [facility]/ZIP Co de Phone Number [facility] [address] [place] [phone] * SARS-CoV-2 RNA, Influenza A/B, and RSV RNA, Ql NAAT (07/04/2024 1:11 PM EDT) Pathologist [facility] Influenza A PCR NEGATIVE Negative [facility] Influenza B PCR NEGATIVE Negative [facility] Resp Syncy Virus RNA Qual PCR NEGATIVE Negative [facility] SARS COV2 PCR NEGATIVE Negative [facility] Comment:All test results mus t [...] use by authorized laboratories.Testing performed on the [employer] GeneXpert utilizingreal-time RT-PCR.All SARS CoV2 and positive influenza A/B results arereported to [facility]. 07/04/2024 1:11 PM EDT 07/04/2024 2:05 PM EDT Generic External Data Provider LAB MICROBIOLOGY - GENERAL ORDERABLES Final Result [facility] [address] [place] [phone] * (ABNORMAL) CBC auto differential (07/04/2024 1:11 PM EDT) Only the most recent of2 resultswithin the time period is included. White Blood Count 7.7 4.8 - 10.8 X10*3/uL [facility] Red Blood Count 5.07 4.20 - 5.50 X10*6/uL [facility] Hemoglobin 14.1 12.0 - 16.0 g/dl [facility] Hematocrit 43.7 37.0 - 47.0 % [facility] Mean Corpuscular Volume 86.2 80.0 - 98.0 fL [facility] Mean Corpuscular Hemoglobin 27.8 27.0 - 33.0 pg [facility] Mean Corpuscular HGB Conc 32.3 31.0 - 35.0 g/dl [facility] Red Cell Distribution Width 13.8 11.0 - 16.0 % [facility] Platelet Count 266 160 - 400 X10*3/uL [facility] Mean Platelet Volume 10.5 9.4 - 12.3 fL [facility] Neutrophils Percent Auto 50.0 45 - 73 % [facility] Imm Gran Pct Auto 0.6(H) 0.0 - 0.4 % [facility] Lymphocytes Percent Auto 30.9 20 - 40 % [facility] Monocytes Percent Auto 5.7 2 - 11 % [facility] Eosinophils Percent Auto 11.6(H) 0 - 4 % [facility] Basophils Percent Auto 1.2 0 - 2 % [facility] NRBC Pct Auto 0.0 0.0 - 0.2 /100WBC [facility] Neutrophils Absolute Auto 3.9 2.0 - 8.3 x10*3/uL [facility] Imm Gran Abs Auto 0.05(H) 0.00 - 0.03 X10*3/uL [facility] Lymphocytes Absolute Auto 2.4 1.2 - 4.9 X10*3/uL [facility] Monocytes Absolute Auto 0.4 0.1 - 1.2 X10*3/uL [facility] Eosinophils Absolute Auto 0.9(H) 0.0 - 0.4 X10*3/uL [facility] Basophils Absolute Auto 0.1 0.0 - 0.2 X10*3/uL [facility] NRBC Abs Auto 0.000 0.0 - 0.012 X10*3/uL [facility] 07/04/2024 1:11 PM EDT 07/04/2024 1:23 PM EDT us Generic External Data Provider LAB BLOOD ORDERAB LES Final Result [facility] [address] [place] [phone] * (ABNORMAL) Prothrombin Time-INR (07/04/2024 1:11 PM EDT) Prothrombin Time 10.6(L) 10.9 - 12.4 SEC [facility] INTERNATIONAL NORM RATIO 0.9 0.9 - 1.1 [facility] Comment:INTERNATIONAL NORMAL IZED RATIO (INR) REFERENCE [...] ORDERAB LES Final Result Performing Organization Address [facility] Phone Number [facility] [address] [place] [phone] * B Type Natriuretic Peptide (BNP) (07/04/2024 1:11 PM EDT) B Type Natriuretic Peptide <10 <100 pg/mL [facility] 07/04/2024 1:11 PM EDT 07/04/2024 1:13 PM EDT Generic External Data Provider LAB BLOOD ORDERAB LES Final Result Performing Organization Address [facility] de Phone Number [facility] [address] [place] [phone] * Magnesium (07/04/2024 1:11 PM EDT) Magnesium 1.8 1.6 - 2.6 mg/dL [facility] 07/04/2024 1:11 PM EDT 07/04/2024 1:13 PM EDT Generic External Data Provider LAB BLOOD ORDERAB LES Final Result Performing Organization Address [facility] de Phone Number [facility] [address] [place] [phone] * (ABNORMAL) Comprehensive Metabolic Panel (07/04/2024 1:11 PM EDT) Only the most recent of2 resultswithin the time period is included. Sodium 142 135 - 145 mmol/L [facility] Potassium 3.2(L) 3.3 - 5.1 mmol/L [facility] Chloride 108 96 - 108 mmol/L [facility] Carbon Dioxide 24 22 - 29 mmol/L [facility] Anion Gap 13 12 - 20 [facility] Urea Nitrogen (BUN) 12 9 - 16 mg/dL [facility] Creatinine, Serum 0.69 0.5 - 1.4 mg/dL [facility] Creatinine Clr Calc Pharmacy 97.6 [facility] Comment:Provided height and weight: 149.86 cm,92 kg.eGFR (calculated from the MDRD study equation) and eCrCl(calculated from the Cockcroft-Gault equation) are based ondifferent parameters and may not yield comparable results.If eCrCl result is absurd, please check patient'sheight/weight. Estimated Glomerular Filt Rate >60 [facility] Comment:Chronic Kidney Disea se: Estimated GFR < 60 mL/min/1.88s5Pjuuck Kidney Disease: Estimated GFR < 15 mL/min/1.73m2 Glucose 109 60 - 115 mg/dL [facility] Calcium 9.4 8.4 - 10.2 mg/dL [facility] Bilirubin, Total 0.4 0.0 - 1.0 mg/dL [facility] Aspartate Amino Transferase 29 5 - 31 U/L [facility] Alanine Aminotransferase 24 0 - 31 U/L [facility] Total Protein 7.0 6.5 - 8.0 g/dL [facility] Albumin Level 4.1 3.5 - 5.0 g/dL [facility] Alkaline Phosphatase 141(H) 39 - 117 U/L [facility] 07/04/2024 1:11 PM EDT 07/04/2024 1:13 PM EDT us Generic External Data Provider LAB BLOOD ORDERAB LES Final Result Performing Organization Address [facility] Co de Phone Number [facility] [address] [place] [phone] * Hold Lavender - Possible Hematology (07/04/2024 1:02 PM EDT) Hold Lavender - Possible Hematololgy SEE NOTE [facility] Comment:Specimen will be hel d untested for 8 hours. Call Hematologyif testing is desired. 07/04/2024 1:02 PM EDT 07/04/2024 1:16 PM EDT us Generic External Data Provider HISTORICAL/NON OR DERABLE LABS Final Result Performing Organization Address [facility] de Phone Number [facility] [address] [place] [phone] * XR Chest 2 Views (07/04/2024 12:39 PM EDT) Anatomical Region Laterality Modality Chest Radiographic Vika ging 07/04/2024 12:3 9 PM EDT Narrative 07/04/2024 12:56 PM EDT ? [facility] ?[address] ?[place] [address] ?XRay Report ? Signed ? Patient: Schroeder Colon,Mariluz ?MR#: M ?? [id number] ? : 1975 ?Acct:[id number] ? Age/Sex: 49 / F ?ADM Date: 04/30/25 ? Loc: HO.ED ? Attending Dr: ? Ordering Physician: Kamille Levine ?? Date of Service: 07/04/24 ?? Procedure(s): XR chest 2V ?? Accession Number(s): [id number] ? cc: Kamille Levine; Kay Pedersen MD [...] DD/ 1239 ? TD/TT: 07/04/24 1250 ? Board Winder: ? Procedure Note Donluis, Image - 07/04/2024 [place] [address] XRay Report Signed Patient: Debo Pisano#: M [id number] : 1975Acct:[id number] Age/Sex: 49 / FADM Date: 07/04/24 Loc: HO.ED Attending Dr: Ordering Physician: Kamille Levine Date of Service: 07/04/24 Procedure(s): XR chest 2V Accession Number(s): [id number] cc: Kamille Levine; Kay Pedersen MD EXAMINATION: [...] 07/04/24 1253 DD/ 1239 TD/TT: 07/04/24 1250 Board Winder: [facility] External Provider IMG XR PROCEDURES Edited Result - Final * TSH with Reflex to Free T4 (05/30/2024 9:36 AM EDT) TSH reflex Free T4 2.15 0.32 - 4.0 uIU/mL [facility] Blood 05/30/2024 9:36 AM EDT 05/30/2024 11:06 AM EDT Kay Pedersen MD LAB BLOOD ORDERABLES Final Resul t [facility] [address] [place] [phone] * (ABNORMAL) Lipid Panel with Reflex to Direct LDL (05/30/2024 9:36 AM EDT) Triglycerides 206(H) <150 mg/dL [facility] Comment:Desirable Triglyceri de: less than 150 mg/dLBorderline High Triglyceride 150-199 mg/dLHigh Triglyceride: 200-499 mg/dLVery High Triglyceride: greater than or equal to 5OO mg/dL Cholesterol 207(H) <200 mg/dL [facility] Comment:Desirable Cholestero l: less than 200 mg/dLBorderline High Cholesterol: 200-239 mg/dLHigh Cholesterol: greater than 239 mg/dL LDL Cholesterol Calculated 111(H) <100 mg/dL [facility] Comment:Desirable LDL: less than 100 mg/dLNear Optimal/Above Optimal LDL: 110- 129 mg/dLBorderline High LDL: 130-159 mg/dLHigh LDL: 160-189 mg/dLVery High LDL: greater than or equal to 190 mg/dL HDL Cholesterol 55 >40 mg/dL [facility] Comment:Desirable HDL: great er than 40 mg/dL Note: This HDL assay may give artificially low results in patients with liver disease. Blood 05/30/2024 9:36 AM EDT 05/30/2024 11:06 AM EDT us Kay Pedersen MD LAB BLOOD ORDERABLES Final Resul t Performing Organization Address [facility] Co de Phone Number [facility] [address] [place] [phone] * (ABNORMAL) C-reactive Protein (05/30/2024 9:36 AM EDT) C Reactive Protein 1.00(H) < or = 0.50 mg/dL [facility] 05/30/2024 9:36 AM EDT 05/30/2024 11:06 AM EDT Generic External Data Provider LAB BLOOD ORDERAB LES Final Result Performing Organization Address [facility] Co de Phone Number [facility] [address] [place] [phone] * Sed Rate by Modified Philergren (05/30/2024 9:16 AM EDT) Erythrocyte Sedimentation Rate 16 0 - 20 MM/HR [facility] Comment:Patients with polycy themia and many hemoglobin abnormalitiesmay have depressed sed rates whereas patients with anemiamay have elevated sed rates. 05/30/2024 9:16 AM EDT 05/30/2024 11:06 AM EDT us Generic External Data Provider LAB BLOOD ORDERAB LES Final Result Performing Organization Address [facility] Co de Phone Number [facility] [address] [place] [phone] * (ABNORMAL) Hemoglobin A1c (05/30/2024 9:16 AM EDT) Hemoglobin A1c 6.6(H) <6.0 % [facility] Comment:Hemoglobin A1C Refer ence Range Adults: 4.8 - 6.0 % Non diabetic: < 6.0 % Goal: < 7.0 %Additional Action Suggested: > 8.0 %Note: Hemoglobin A1c results are invalid for patients with abnormal amounts of HbF. Blood transfusions may impact the HbA1c concentration in the patient sample. Estimated Average Glucose 143 mg/dL [facility] Comment:eAG = Estimated ave rage glucose which is %A1C expressed asaverage glucose, using the formula of the [id number]-[id number] Glucose study (ADAG), Diabetes Care, Vol.31,#8,Aug. 2007 Blood Venous blood specimen / Unknown 05/30/2024 9:16 AM EDT 05/30/2024 11:06 AM EDT us Kay Pedersen MD LAB BLOOD ORDERABLES Final Resul t [facility] [address] [place] [phone] * BI Mammogram Screening Tomosynthesis Bilateral (06/01/2023 2:10 PM EDT) Anatomical Region Laterality Modality Breast Bilateral Mammography 06/01/2023 2:10 PM EDT Narrative 06/28/2023 5:48 AM EDT ? [facility] ? [address] ?[place] [address] ? Mammography Report ? Signed ? Patient: Schroeder Colon,Mariluz ?MR#: M ?? [id number] ? : 1975 ?Acct:[id number] ? Age/Sex: 47 / F ?ADM Date: 03/27/24 ? Loc: HO.MAMMO ? Attending Dr: Kay Pedersen MD ? Ordering Physician: Kay Pedersen MD ?Results: 1Negative ? Date of Service: 06/01/23 ?Follow Up: 1 Year From Orig ?? inal Mammogram ? Procedure(s): MM tomosynthesis screening BI ?? Accession Number(s): [id number] ? cc: Kay Pedersen MD ? EXAMINATION: [...] by Gita Hand MD in OV> ? 04/ 0544 ? DD/DT: 05/31/ 1410 ? TD/TT: ? Board Winder: ? Procedure Note Donotuseinterpreter, Image - 06/28/2023 [facility] [address] [place] [address] Mammography Report Signed Patient: Debo Pisano#: [id number] : 1975Acct:[id number] Age/Sex: 47 / FADM Date: 06/01/23 Loc: HO.MAMMO Attending Dr: Kay Pedersen MD Ordering Physician: Kay Pedersen MDResults: 1Negative Date of Service: 06/01/23Follow Up: 1 Year From Orig inal Mammogram Procedure(s): MM tomosynthesis screening BI Accession Number(s): [id number] cc: Kay Pedersen MD EXAMINATION: MM SCREENING [...] in OV> 06/28/23 0544 DD/ 1410 TD/TT: Board Winder: us Kay Pedersen MD IMG BI PROCEDURES Final Result * Hm Colonoscopy (11/09/2022) Colonoscopy Normal Normal 11/09/2022 us Jacinto Daniel MD HEALTH MAINTENANCE Final Result * Hepatitis C Antibody Reflex (10/12/2022 11:06 AM EDT) Hepatitis C Antibody Nonreactive Nonreactive [facility] Comment:Antibodies to HCV no t detected; does not exclude early acuteHCV infection. 10/12/2022 11:0 6 AM EDT 10/12/2022 1:20 PM EDT us Kay Pedersen MD LAB BLOOD ORDERABLES Final Resul t Performing Organization Address [facility]/ZIP Co de Phone Number [facility] [address] [place] [address] [phone] * HIV AB/AG (04/18/2019 11:04 AM [...] detection of this assay. ?? The [employer] Shafting Cleaner HIV Ag/Ab Combo assay result and supplemental assay results should be interpreted in conjunction with the patient's clinical presentation, history and other laboratory results. ??If the results are inconsistent with clinical evidence, additional testing is suggested to confirm the result. 04/18/2019 11:0 4 AM EST us Tanner Reyes MD HISTORICAL/NON ORDERABLE LAB S Final Result [facility] [address] [place] [address], from Last 3 Months or Most Recently Relevant to Health Maintenance Insurance [facility] C3 Care Teams Patient Financial Rep Relationship Specialty Start Date End Date Kay Pedersen MD [address] [place] [address] PCP - General Family Medicine 09/10/22 Shadi Cabrera, PharmD [address] [place] [address] Pharmacist Internal Medicine 05/31/23 Garrett Gilbert MD [address] [place] [address] Nephrology 06/18/24 Adryan Werner MD Perianesthesia Rn 06/18/24 Kerry Gallo Rheumatology 06/18/24
--- OUTSIDE RECORDS SUMMARY | 2024-07-11 12:45 | XMS_ITS ---
Author Organization [facility] Address [address] [facility] 7t [place] [address] Care Team Providers Care Diabetes Trainer Name Role Phone Kay Pedersen MD Primary Care Provider [phone] Shadi Cabrera PharmD Unavailable [phone] Garrett Gilbert MD Unavailable [phone] CM Complex Status:Outreach In Progress (Enrolling) Start date:07/05/2024 Enrollment reason:ADT Feed Overview ADT- [facility] ED 07/04/24 Case Team Name Relationship Phone Joseline Mccarty RN Registered Nurse(Responsible S taff) [phone] Continued Care and Services Coordination
--- OUTSIDE RECORDS SUMMARY | 2024-07-11 12:45 | XMS_ITS | Encounter Summary ---
Author Organization [employer] Address [address] [facility] [address] 7t [place] [address] Care Team Providers Care Etl Informatica Developer Name Role Phone Kay Pedersen MD Primary Care Provider [phone] Shadi Cabrera PharmD Unavailable [phone] Garrett Gilbert MD Unavailable [phone] Encounter Details Date Type Department Care Team (Late st Contact Info) Description 10/27/2023 Orders Only [facility] [address] [place], [place] [phone] Kay Pedersen MD [address] [place], [place] [phone] Hypokalemia (Primary Dx) Social History Tobacco Use [...] Description 08/16/2024 1:00 PM EDT Office Visit [facility] [address] [place] [address] Marifer Pearson CNM [address] [place] [address] 09/10/2024 1:45 PM EDT Office Visit [address] [address] Kay Pedersen MD [address] [place] [address] documented as of this encounter Goals Goal [...] Results * Potassium (11/15/2023 11:00 AM EDT) [facility] Signature Potassium 3.3 3.3 - 5.1 mmol/L [facility] Blood Venous blood specimen / Unknown 11/15/2023 11:00 AM EDT 11/15/2023 1:15 PM EDT Kay Pedersen MD LAB BLOOD ORDERABLES Final Resul t Performing Organization Address City/[facility]/ZIP Co de Phone Number [facility] [address] [place] [address] [phone] * (ABNORMAL) Basic Metabolic Panel (11/01/2023 1:26 PM EDT) Sodium 142 135 - 145 mmol/L [facility] Potassium 3.2(L) 3.3 - 5.1 mmol/L [facility] Chloride 106 96 - 108 mmol/L [facility] Carbon Dioxide 24 22 - 29 mmol/L [facility] Anion Gap 15 12 - 20 [facility] Urea Nitrogen (BUN) 10 9 - 16 mg/dL [facility] Creatinine, Serum 0.80 0.5 - 1.4 mg/dL [facility] Estimated Glomerular Filt Rate >60 [facility] Comment:NOTE: For -Am erican individuals, multiply the result by 1.210.Chronic Kidney Disease: Estimated GFR < 60 mL/min/1.52w3Mlmosa Kidney Disease: Estimated GFR < 15 mL/min/1.73m2 Glucose 164(H) 60 - 115 mg/dL [facility] Calcium 10.1 8.4 - 10.2 mg/dL [facility] Blood Venous blood specimen / Unknown 11/01/2023 1:26 PM EDT 11/01/2023 4:08 PM EDT Kay Pedersen MD LAB BLOOD ORDERABLES Final Resul t Performing Organization Address City/[facility]/ZIP Co de Phone Number [facility] [address] [place] [address] [phone] documented in this encounter Visit Diagnoses Diagnosis Hypokalemia- Primary Hypopotassemia documented in this encounter Additional Health Concerns Assessment Noted Time PHQ-9 Depression Total Score: 8 03/14/19 24 9:41 AM EST documented as of this encounter Care Teams Etl Informatica Developer Relationship Specialty Start Date End Date Kay Pedersen MD [address] [place] [address] PCP - General Family Medicine 09/10/22 Shadi Cabrera, CatalinaD [address] [place] [address] Pharmacist Internal Medicine 05/31/23 Garrett Gilbert MD [address] [place] [address] Drive [address] [place] [address] Nephrology 06/18/24 Adryan Werner MD Piano Maker 06/18/24 Kerry Gallo Rheumatology 06/18/24 documented as of this encounter
--- OUTSIDE RECORDS SUMMARY | 2024-07-11 12:45 | XMS_ITS | Encounter Summary ---
Author Organization [employer] [facility] Address [address] [facility] 7t [place] [address] Care Team Providers Care Referral Specialist Name Role Phone Kay Pedersen MD Primary Care Provider [phone] Shadi Cabrera PharmD Unavailable [phone] Garrett Gilbert MD Unavailable [phone] Reason for Visit * Reason Onset Date Comments Nurse Triage 07/04/2024 Encounter Details Date Type Department Care Team ([facility] st Contact Info) Description 07/04/2024 Telephone [facility] [address] [place], [place] [phone] Kay Pedersen MD [address] [place], [place] [phone] Nurse Triage Social History Tobacco Use Types [...] encounter Miscellaneous Notes * Telephone Encounter - Cheyenne Underwood RN - 07/06/2024 9:21 AM EDT TC placed to pt with a zigzag stitcher to inform that PCP placed a repeat XR order as advised by the ED after pt showed possible right sided pneumonia. Pt advised to have the imaging done the last week of July (-) as this would be four weeks from the initial imaging. Pt instructed that she can have this done either at [facility] or [facility]. Pt agreeable to this information and stated understanding. * Telephone Encounter - Cheyenne Underwood RN - 07/05/2024 11:09 AM EDT TC placed to pt to follow up on recent visit to [facility] ED on 07/04 to rule out a potential DVT. Pt had an ultrasound performed that was negative for a blood clotbut the chest XR showed possible right sided pneumonia. The pt is currently on a course of azithromycin for five days and confirms that she is taking the medication as prescribed. The pt should be through the course of the AB by TuesdayJuly 09 and the ED requested that the pt have a follow up XR to confirm that the pneumonia has resolved. Pt denies any current SOB, cough or wheezing. The pt was informed that this information will be sent to PCP to advise and order XR. Pt agreeable and stated understanding. * Telephone Encounter - Kimi Painter RN - 07/04/2024 11:39 AM EDT No live source operator needed as this check writer salesperson speaks [place]. Call returned to Mariluz Kessler to triage [...] Pt advised of disposition, agrees to seek [facility] ER now for evaluation to rule out [...] caller accepted this outcome. Contact pt at [phone] ( czech ) documented in this encounter Plan of Treatment Upcoming Encounters Date Type Department Care Team ([facility] st Contact Info) Description 08/16/2024 1:00 PM EDT Office Visit [facility] [address] [place] [address] Marifer Pearson, MAJOR [address] [place] [address] 09/10/2024 1:45 PM EDT Office Visit [facility] [address] [place] [address] Kay Pedersen MD [address] [place] [address] documented as of this encounter Goals Goal Patient Goal Type Associated Problems Recent Progress Patient-Stated? Author Blood Pressure < 140/90 Blood Pressure 132/80( 025 2:10 PM EDT) No Shadi Cabrera, PharmD documented as of this encounter Visit Diagnoses Not on filedocumented in this encounter Additional Health Concerns Assessment Noted Time PHQ-9 Depression Total Score: 025 9:30 AM EST documented as of this encounter Care Teams Referral Specialist Relationship Specialty Start Date End Date Kay Pedersen MD [address] [place] [address] PCP - General Family Medicine 09/10/22 Shadi Cabrera, PharmD [address] [place] [address] Pharmacist Internal Medicine 05/31/23 Garrett Gilbert MD [address] [place] [address] Drive [address] [place] [address] Nephrology 06/18/24 Adryan Werner MD Rock Wool Insulator 06/18/24 Kerry Gallo Rheumatology 06/18/24 documented as of this encounter
--- OUTSIDE RECORDS SUMMARY | 2024-07-11 12:45 | XMS_ITS | Encounter Summary ---
Author Organization [employer] [facility] Address [address] [facility] 7t [place] [address] Care Team Providers Care Warehouse Clerk Name Role Phone Jasmine Rodriguez AMAYA Primary Care Provider [phone] Kay Pedersen MD Primary Care Provider [phone] Shadi Cabrera PharmD Unavailable [phone] Garrett Gilbert MD Unavailable [phone] Encounter Details Date Type Department Care Team (Late st Contact Info) Description 03/25/2022 Orders Only [facility] [address] [place] [address] [phone] Megan Munoz LPN Social History Tobacco Use [...] Description 08/16/2024 1:00 PM EDT Office Visit [facility] [address] [place] [address] [phone] Marifer Pearson CNM [address] [place], [place] [phone] 09/10/2024 1:45 PM EDT Office Visit [facility] [address] [place] [address] [phone] Kay Pedersen MD [address] [place] [address] [phone] documented as of this encounter Visit Diagnoses Not on filedocumented in this encounter Care Teams Warehouse Clerk Relationship Specialty Start Date End Date Jasmine Rodriguez FNP PCP - General Family Medicine 01/25/22 09/09/22 Kay Pedersen MD [address] [place] [address] PCP - General Family Medicine 09/10/22 Shadi Cabrera PharmD [address] [place] [address] Pharmacist Internal Medicine 05/31/23 Garrett Gilbert MD [address] [place] [address] Drive [address] [place] [address] Nephrology 06/18/24 Adryan Werner MD Hydraulic Boom Operator 06/18/24 Kerry Gallo Rheumatology 06/18/24 documented as of this encounter
--- OUTSIDE RECORDS SUMMARY | 2024-07-11 12:45 | XMS_ITS | Encounter Summary ---
Author Organization [employer] [facility] Address 75 [facility] 7t [place] [address] Care Team Providers Care Division Manager Name Role Phone Kay Pedersen MD Primary Care Provider [phone] Shadi Cabrera PharmD Unavailable [phone] Garrett Gilbert MD Unavailable [phone] Reason for Referral * Consultation (Routine) - Authorized Specialty Diagnoses / Procedures Referred By Contac t Referred To Contact Pharmacy Diagnoses Hypertension, unspecified type Moderate persistent asthma without complication Kay Pedersen MD [address] [place] [address] Phone: tel: fax: Referral ID Status Reason Start Date Expiration Date Visits Requested Visits Authorized [id number] Authorized Consult and Treat 12/05/2023 12/04/2024 6 6 Encounter Details Date Type Department Care Team (Late st Contact Info) Description 12/05/2023 Orders Only [facility] [address] [place] [address] [phone] Kay Pedersen MD [address] [place], [place] [phone] Hypertension, unspecified type (Primary Dx); Moderate persistent [...] Description 08/16/2024 1:00 PM EDT Office Visit [facility] [address] [place] [address] Marifer Pearson CNM [address] [place] [phone] 09/10/2024 1:45 PM EDT Office Visit [facility] [address] [place] [address] Kay Pedersen MD [address] [place] [address] Scheduled Referrals Name Type Priority Associated Diagnoses [...] documented as of this encounter Care Teams Division Manager Relationship Specialty Start Date End Date Kay Pedersen MD [address] [place] [address] PCP - General Family Medicine 09/10/22 Shadi Cabrera, PharmD [address] [place] [address] Pharmacist Internal Medicine 05/31/23 Garrett Gilbert MD [address] [place] [address] Drive [address] [place] [address] Nephrology 06/18/24 Adryan Werner MD Vocational Services Specialist 06/18/24 Kerry Gallo Rheumatology 06/18/24 documented as of this encounter
== END 2024-07-11 12:32 | disposition home or self-care (01) ==
LOC: HO.HGI 11:15
PROVIDERS: PCP Family Medicine; Visit Provider Nurse Practitioner
DX: K20.90 Esophagitis, unspecified without bleeding (principal); K21.00 Gastro-esophageal reflux disease with esophagitis, without bleeding
CPT/HCPCS: 99214

== ENCOUNTER → 2024-07-11 11:15 | Outpatient (BNVA) | payer MEDICAID, SELFPAY | PROVIDERS: PCP Family Medicine; Visit Provider Nurse Practitioner | DX: K21.00 Gastro-esophageal reflux disease with esophagitis, without bleeding (principal) | CPT/HCPCS: 99212 ==

== ENCOUNTER 2024-08-14 12:32 | Outpatient (REF) | payer MEDICAID, SELFPAY ==
--- OUTSIDE RECORDS SUMMARY | 2024-08-14 14:43 | XMS_ITS | Encounter Summary ---
Author Organization [employer] Address [address] [facility] [address] 7t [place] [address] Care Team Providers Care Professor Of Criminal Justice Name Role Phone Kay Pedersen MD Primary Care Provider [phone] Shadi Cabrera PharmD Unavailable [phone] Garrett Gilbert MD Unavailable [phone] Encounter Details Date Type Department Care Team ([facility] st Contact Info) Description 07/05/2024 Orders Only [facility] [address] [place], [place] [phone] Kay Pedersen MD [address] [place], [place] [phone] Pneumonia of right middle lobe due to [...] Description 08/16/2024 1:00 PM EDT Office Visit [facility] [address] [place] [address] Marifer Pearson CNM [address] [place] [address] 09/10/2024 1:45 PM EDT Office Visit [facility] [address] [place] [address] Kay Pedersen MD [address] [place], [place] [phone] Scheduled Orders Name Type Priority Associated Diagnoses Orde r Schedule XR Chest 2 Views Imaging Routine Pneumonia of right middle lobe due to infectious organism Expected: 07/05/2024, Expires: 07/05/2025 documented as of this encounter Goals Goal Patient Goal Type Associated Problems Recent Progress Patient-Stated? Author Blood Pressure < 140/90 Blood Pressure 136/95( 025 3:08 PM EDT) No Shadi Cabrera, PharmD documented as of this encounter Visit Diagnoses Diagnosis Pneumonia of right middle lobe due to infectious organism- Primary documented in this encounter Additional Health Concerns Assessment Noted Time PHQ-9 Depression Total Score: 10 025 9:30 AM EST documented as of this encounter Care Teams Professor Of Criminal Justice Relationship Specialty Start Date End Date Kay Pedersen MD [address] [place] [address] PCP - General Family Medicine 09/10/22 Shadi Cabrera, Solange [address] [place] [address] Pharmacist Internal Medicine 05/31/23 Garrett Gilbert MD [address] [place] [address] Nephrology 06/18/24 Adryan Werner MD Journeyman Plumber 06/18/24 Kerry Gallo Rheumatology 06/18/24 documented as of this encounter
== END 2024-08-14 12:33 | disposition home or self-care (01) ==
LOC: HO.MAMMO 12:32
PROVIDERS: PCP Family Medicine; Visit Provider Family Medicine
DX: Z12.31 Encounter for screening mammogram for malignant neoplasm of breast (principal)
CPT/HCPCS: 77063; 77067

== ENCOUNTER → 2024-08-14 13:45 | Outpatient (BNV) | payer MEDICAID, SELFPAY | PROVIDERS: PCP Family Medicine; Visit Provider Internal Medicine | DX: Z12.31 Encounter for screening mammogram for malignant neoplasm of breast (principal) | CPT/HCPCS: 77063; 77067 ==

== ENCOUNTER 2024-09-10 13:59 | Outpatient (REF) | payer MEDICAID, SELFPAY ==
--- OUTSIDE RECORDS SUMMARY | 2024-09-10 14:29 | XMS_ITS | Encounter Summary ---
Author Organization [employer] Address [address] [facility] [address] 7t [place] [address] Care Team Providers Care Land Clearer Name Role Phone Kay Pedersen MD Primary Care Provider [phone] Shadi Cabrera PharmD Unavailable [phone] Garrett Gilbert MD Unavailable [phone] Encounter Details Date Type Department Care Team ([facility] st Contact Info) Description 07/05/2024 Orders Only [facility] [address] [place], [place] [phone] Kay Pedersen MD [address] [place], [place] [phone] Pneumonia of right middle lobe due to [...] Care Team (Late st Contact Info) Description 09/13/2024 2:00 PM EDT Office Visit [facility] [address] [place] [address] Marifer Pearson, MAJOR [address] [place] [address] 10/08/2024 1:30 PM EDT Medication Management [facility] [address] [place] [address] Shadi Cabrera, PharmD [address] [place] [address] Scheduled Orders Name Type Priority Associated Diagnoses Orde r Schedule XR Chest 2 Views Imaging Routine Pneumonia of right middle lobe due to infectious organism Expected: 07/05/2024, Expires: 07/05/2025 documented as of this encounter Goals Goal Patient Goal Type Associated Problems Recent Progress Patient-Stated? Author Blood Pressure < 140/90 Blood Pressure 150/80( 025 1:40 PM EDT) No Shadi Cabrera, PharmD documented as of this encounter Visit Diagnoses Diagnosis Pneumonia of right middle lobe due to infectious organism- Primary documented in this encounter Additional Health Concerns Assessment Noted Time PHQ-9 Depression Total Score: 10 025 9:30 AM EST documented as of this encounter Care Teams Land Clearer Relationship Specialty Start Date End Date Kay Pedersen MD [address] [place] [address] PCP - General Family Medicine 09/10/22 Shadi Cabrera, Solange [address] [place] [address] Pharmacist Internal Medicine 05/31/23 Garrett Gilbert MD [address] [place] [address] Nephrology 06/18/24 Adryan Werner MD Glucose And Syrup Weigher 06/18/24 Kerry Gallo Rheumatology 06/18/24 documented as of this encounter
[2024-09-10 17:22] LABS: Hemoglobin A1C 205.8585 umol/L; Total Hemoglobin (HGBA1C) 4006.7589 umol/L
[2024-09-10 17:29] LABS: Albumin Level 4.7 g/dL (3.5-5.0); Alkaline Phosphatase 137 U/L (39-117); Anion Gap 13 (12-20); Aspartate Amino Transferase 38 U/L (5-31); Blood Urea Nitrogen 11 mg/dL (9-16); Calcium 9.7 mg/dL (8.4-10.2); Carbon Dioxide 27 mmol/L (22-29); Chloride 105 mmol/L (96-108); Cholesterol 226 mg/dL (<200); Estimated Glomerular Filt Rate > 60; HDL Cholesterol 51 mg/dL (>40); Potassium 3.1 mmol/L (3.3-5.1); Sodium 142 mmol/L (135-145); Total Protein 7.6 g/dL (6.5-8.0); Triglycerides 273 mg/dL (<150)
[2024-09-10 17:49] LABS: Microalbum/Creatinine Ratio Ur 22.5 ug/mg cr (<30)
[2024-09-10 17:52] LABS: Alanine Aminotransferase 35 U/L (0-31)
[2024-09-10 18:27] LABS: Reflex LDLD? No
== END 2024-09-10 14:00 | disposition home or self-care (01) ==
LOC: HO.HHCL 13:59
PROVIDERS: PCP Family Medicine; Referring Provider Student in an Organized Health Care Education/Training Program; Visit Provider Family Medicine
DX: R73.03 Prediabetes (principal); I10 Essential (primary) hypertension
CPT/HCPCS: 36415; 80053; 80061; 82043; 82570; 83036

== ENCOUNTER 2024-10-03 09:06 | Outpatient (REF) | payer MEDICAID, SELFPAY ==
--- OUTSIDE RECORDS SUMMARY | 2024-10-03 09:33 | XMS_ITS | Encounter Summary ---
Author Organization [employer] Address [address] [facility] [address] 7t [place] [address] Care Team Providers Care Research Rn Spec Name Role Phone Kay Pedersen MD Primary Care Provider Shadi Cabrera PharmD Unavailable [phone] Garrett Gilbert MD Unavailable [phone] Encounter Details Date Type Department Care Team ([facility] st Contact Info) Description 07/05/2024 Orders Only [facility] [address] [place], [place] [phone] Kay Pedersen MD [address] [place], [place] [phone] Pneumonia of right middle lobe due to [...] Care Team (Late st Contact Info) Description 10/08/2024 1:30 PM EDT Medication Management [facility] [address] [place] [address] Shadi Cabrera, PharmD [address] [place] [address] 11/26/2024 1:45 PM EDT Office Visit [facility] [address] [place] [address] Kay Pedersen MD [address] [place] [address] Scheduled Orders Name Type Priority Associated Diagnoses [...] documented as of this encounter Care Teams Research Rn Spec Relationship Specialty Start Date End Date Kay Pedersen MD [address] [place] [address] PCP - General Family Medicine 09/10/22 Shadi Cabrera, Solange [address] [place] [address] Pharmacist Internal Medicine 05/31/23 Garrett Gilbert MD [address] [place] [address] Nephrology 06/18/24 Adryan Werner MD Assistant Store Leader 06/18/24 Kerry Gallo Rheumatology 06/18/24 documented as of this encounter
[2024-10-03 11:23] LABS: MANUAL DIFF FLAG NO
[2024-10-03 11:40] LABS: Hematocrit 47.3 % (37.0-47.0); Hemoglobin 15.3 g/dl (12.0-16.0); Imm Gran Abs Auto 0.02 X10*3/uL (0.00-0.03); Imm Gran Pct Auto 0.2 % (0.0-0.4); Lymphocytes Absolute Auto 3.7 X10*3/uL (1.2-4.9); Mean Corpuscular HGB Conc 32.3 g/dl (31.0-35.0); Mean Corpuscular Hemoglobin 27.3 pg (27.0-33.0); Mean Corpuscular Volume 84.3 fL (80.0-98.0); NRBC Abs Auto 0.000 X10*3/uL (0.0-0.012); NRBC Pct Auto 0.0 /100WBC (0.0-0.2); Platelet Count 264 X10*3/uL (160-400); Red Blood Count 5.61 X10*6/uL (4.20-5.50); White Blood Count 8.1 X10*3/uL (4.8-10.8)
[2024-10-03 11:52] LABS: Alanine Aminotransferase 39 U/L (0-31); Albumin Level 4.5 g/dL (3.5-5.0); Alkaline Phosphatase 126 U/L (39-117); Anion Gap 14 (12-20); Aspartate Amino Transferase 37 U/L (5-31); Blood Urea Nitrogen 9 mg/dL (9-16); Calcium 9.4 mg/dL (8.4-10.2); Carbon Dioxide 23 mmol/L (22-29); Chloride 107 mmol/L (96-108); Estimated Glomerular Filt Rate > 60; Potassium 3.2 mmol/L (3.3-5.1); Sodium 141 mmol/L (135-145); Total Protein 7.0 g/dL (6.5-8.0)
[2024-10-03 12:14] LABS: HBS Num1 3.17 mIU/mL (0-7.99); HBc Num1 0.13 S/CO (0.00-0.79); HBsAGNum1 0.32 S/CO (0.00-0.99); Hepatitis A Antibody IgM 0.25 Index (0-0.79); Hepatitis B Surface Antigen Negative (Negative); ~HepC Num1 0.17 S/CO (0.00-0.79); ~Hepatitis A Antibody IgM Nonreactive (Nonreactive); ~Hepatitis B Surface Antibody NONREACTIVE (Nonreactive); ~Hepatitis C Antibody Nonreactive (Nonreactive)
[2024-10-06 12:28] LABS: TS Negative Control Passed; TS Panel A 0; TS Panel B 0; TS Positive Control Passed; TSpotTB Negative (Negative)
[2024-10-07 16:53] LABS: Vitamin D 25-OH, D2 <4 ng/mL; Vitamin D 25-OH, D3 37 ng/mL; Vitamin D 25-OH, Total 37 ng/mL (30-100)
== END 2024-10-03 09:07 | disposition home or self-care (01) ==
LOC: HO.HHCL 09:06
PROVIDERS: Student in an Organized Health Care Education/Training Program; PCP Family Medicine; Visit Provider Family Medicine
DX: Z11.1 Encounter for screening for respiratory tuberculosis (principal); M05.9 Rheumatoid arthritis with rheumatoid factor, unspecified; E55.9 Vitamin D deficiency, unspecified; Z11.59 Encounter for screening for other viral diseases
CPT/HCPCS: 36415; 80053; 82306; 85025; 85652; 86140; 86481; 86704; 86706; 86709; 86803; 87340

== ENCOUNTER 2024-10-11 14:25 | Outpatient (AMB) | payer MEDICAID, SELFPAY ==
--- OUTSIDE RECORDS SUMMARY | 2024-10-11 14:28 | XMS_ITS | Encounter Summary ---
Author Organization [employer] Address [address] [facility] [address] 7t [place] [address] Care Team Providers Care Payroll And Benefits Assistant Name Role Phone Kay Pedersen MD Primary Care Provider [phone] hSadi Cabrera PharmD Unavailable [phone] Garrett Gilbert MD Unavailable [phone] Encounter Details Date Type Department Care Team ([facility] st Contact Info) Description 07/05/2024 Orders Only [facility] [address] [place], [place] [phone] Kay Pedersen MD [address] [place], [place] [phone] Pneumonia of right middle lobe due to [...] Care Team (Late st Contact Info) Description 11/09/2024 1:00 PM EDT Telemedicine [facility] [address] [place] [address] Shadi Cabrera, PharmD [address] [place] [address] 11/26/2024 1:45 PM EDT Office Visit [facility] [address] [place] [address] Kay Pedersen MD [address] [place] [address] Scheduled Orders Name Type Priority Associated Diagnoses Orde r Schedule XR Chest 2 Views Imaging Routine Pneumonia of right middle lobe due to infectious organism Expected: 07/05/2024, Expires: 07/05/2025 documented as of this encounter Goals Goal Patient Goal Type Associated Problems Recent Progress Patient-Stated? Author Blood Pressure < 140/90 Blood Pressure 132/101(2024 2:12 PM EDT) No Shadi Cabrera, PharmD documented as of this encounter Visit Diagnoses Diagnosis Pneumonia of right middle lobe due to infectious organism- Primary documented in this encounter Additional Health Concerns Assessment Noted Time PHQ-9 Depression Total Score: 10 025 9:30 AM EST documented as of this encounter Care Teams Payroll And Benefits Assistant Relationship Specialty Start Date End Date Kay Pedersen MD [address] [place] [address] PCP - General Family Medicine 09/10/22 Shadi Cabrera, CatalinaD [address] [place] [address] Pharmacist Internal Medicine 05/31/23 Garrett Gilbert MD [address] [place] [address] Nephrology 06/18/24 Adryan Werner MD Cupboard Builder 06/18/24 Kerry Gallo Rheumatology 06/18/24 documented as of this encounter
[2024-10-11 14:34] VITALS: BP 142/78; PULSE 95; O2SAT 96; BMI 37.9
--- NOTE | 2024-10-11 14:34 | A.OFFVIS_ITS ---
Vital Signs 10/11/24 14:34 Height 4 ft 11 in Weight 187 lb 13.341 oz BMI 37.9 BP 142/78 H Blood Pressure Location Lt brachial Position Sitting Pulse 95 Pulse Source Pulse Oximeter Pulse Oximetry (%) 96 Oxygen Delivery Method Room Air Intake Visit Reasons: RA Intake Note: Patient presents for RA follow up. Professor Of Medicine Name: Jordan [phone] Accompanied by: Significant Other Allergies penicillin G (PENICILLIN G) Allergy (Severe, Verified 10/11/24 14:41) DIZZINESS tramadol Allergy (Severe, Verified 10/11/24 14:41) Vomiting and sweats HPI Comments Details: Patient is a 49-year-old female with hypertension, hyperlipidemia, GERD, allergies, restless legs syndrome, seropositive rheumatoid arthritis and fibromyalgia here today for follow up Interval History: Patient last seen 02/23/[address] Obregon - On Leflunomide 10mg daily - Doing well - C/o intermittent knee pain los with walking that responds to Tylenol Today - On Leflunomide 10mg daily - Continues to do well without any new complaints - Still gets intermittent knee pain Rheumatologic History: Seropositive rheumatoid arthritis (RF+ CCP+, x-rays with periarticular osteopenia) - Methotrexate: oral and SC but could not tolerate due to GI upset - Leflunomide 05/2020 - present. effective Current Rheumatology Medication(s): Leflunomide 10mg daily [facility] Medical History (Updated 10/11/24 @ 14:45 by Kerry Gallo MD) Encounter for screening for osteoporosis Irritable bowel Esophagitis Early satiety Thoracic degenerative disc disease Back pain Asthma Fibromyalgia Sleep apnea Seropositive rheumatoid arthritis Arthritis Diarrhea Surgical History History of esophagogastroduodenoscopy (EGD) History of laparoscopic cholecystectomy Hx of tubal ligation History of partial hysterectomy Hx of endoscopy History of colonoscopy Family History Father No problems noted. Mother History of high blood pressure Social History Household Members: None Housing: Apartment Do you presently have visiting nurse or other home services: No Alcohol intake: current Alcohol intake frequency: holidays/special occasions only Alcohol type: beer and wine Patient Tobacco Use Status: Former Tobacco user Tobacco use type: Cigarette e-Cigarette/Vaping Use: Never Used Substance Use Type: Marijuana Advance Directives Date on File: 09/12/23 service: No Current occupational status: disabled Review of Systems Const Details: Review of Systems Constitutional: Denies fever, chills, weight loss ENT: Denies vision changes, eye pain or eye redness, dental caries, dry mouth GI: Denies nausea, vomiting, diarrhea, abdominal pain, change in BM Pulm: Denies SOB, KIDD, hemoptysis, wheezing Cards: Denies chest pain, palpitations Skin: Denies Raynaud's, rash, nail changes, photosensitivity, SACK SORTER: Denies headaches, weakness, paresthesias, recurrent falls MSK: as per HPI All other systems reviewed and are unremarkable except noted above Physical Exam Exam Exam: Vital signs reviewed Physical Examination CONSTITUITIONAL Patient alert and cooperative. Well appearing and in no apparent painful distress MSK Hands * Right Hand: Able to make a fist. No swelling or tenderness to palpation of these joints. No deformities noted. * Left Hand: Able to make a fist. No swelling or tenderness to palpation of thes e joints. No deformities noted. Wrists * Right Wrist: Full ROM. 70 degrees of wrist flexion, 80 degrees of wrist extension. No swelling or TTP * Left Wrist: Full ROM. 70 degrees of wrist flexion, 80 degrees of wrist extension. No swelling or TTP Elbows * Right Elbow: Full ROM. No swelling or TTP. No TTP of the medial and lateral epicondyles * Left Elbow: Full ROM. No swelling or TTP. No TTP of the medial and lateral epicondyles Shoulders * Right shoulder: Full ROM. No swelling noted. No TTP of the AC joint, subacromial bursa or posterior shoulder * Left shoulder: Full ROM. No swelling noted. No TTP of the AC joint, subacromial bursa or posterior shoulder Hip bursa: Mild TTP of the right trochanteric bursa. No TTP of the left trochanteric bursa Knees * Right knee: Full ROM. No swelling noted. No TTP of the knee joint lie * Left knee: Full ROM. No swelling noted. No TTP of the knee joint lie * Crepitations felt bilaterally * TTP bilateral pes anserine bursa Ankles * Right ankle: Good ankle dorsiflexion and plantar flexion. No swelling. No TTP of the ankle joint * Left ankle: Good ankle dorsiflexion and plantar flexion. No swelling. No TTP of the ankle joint Feet * Right foot: Negative squeeze test * Left foot: Negative squeeze test Tender points? * No tenderness to palpation of the supraspinatus, anterior costochondral junctions, bilateral suboccipital muscle insertions * TTP bilateral trapezius SKIN No rashes Results Reviewed Results Reviewed: Laboratory Tests 10/03/24 09:13 WBC 8.1 RBC 5.61 H Hgb 15.3 Hct 47.3 H Plt Count 264 ESR 6 Sodium 141 Potassium 3.2 L Chloride 107 Carbon Dioxide 23 BUN 9 Creatinine 0.84 AST 37 H ALT 39 H Alkaline Phosphatase 126 H C-Reactive Protein 0.44 25-OH Vitamin D Total 37 Infectious serologies 10/03/24 09:13 Hepatitis A IgM Ab Nonreactive Hep Bs Antigen Negative Hep Bs Antibody NONREACTIVE Hep B Core Total Ab Nonreactive Hepatitis C Ab (EIA) Nonreactive TB Test (T-Spot) Com Negative DEXA 05/2023 FINDINGS: LEFT FEMUR, NECK: BMD 0.922 g/cm2, Z-score -0.5, T-score -0.8, normal. LEFT FEMUR, TOTAL: BMD 0.974 g/cm2, Z-score -0.3, T-score -0.3, normal. AP SPINE L1-L4: BMD 1.032 g/cm2, Z-score -1.6, T-score -1.2, osteopenia. FRAX: Major osteoporotic fracture (clinical spine, forearm, hip or shoulder) 2.1%. Hip fracture 0.1%. Assessment & Plan Assessment & Plan (1) Seropositive rheumatoid arthritis: Comment: +RF -ve CCP dx 10/2017 Methotrexate: Both oral and subcutaneous-GI upset Leflunomide: May 2020- off for a period of time due to running out of medication then restarted May 2021-present Code(s): M05.9 - Rheumatoid arthritis with rheumatoid factor, unspecified Category: Medical Plan: #Seropositive RA Patient is a 49-year-old female with seropositive rheumatoid arthritis here today for follow up. Doing well without evidence of synovitis on exam Note made of mild transminitis but this is not new and has been present in the past. Discussed decreasing fatty food intake and limiting tylenol and NSAID use Plan - Leflunomide 10mg daily - RTC 6 months - CBC, CMP, ESR, CRP (2) Encounter for screening for osteoporosis: Comment: DEXA 05/2023: AP Spine -1.2, Left femur neck -0.8, Left femur total -0.3. FRAX 2.1/0.1 Code(s): Z13.820 - Encounter for screening for osteoporosis Category: Medical Plan: #Screening for osteoporosis Patient has been screened for osteoporosis due to history of rheumatoid arthritis and previous steroid use. Last bone density 2023 shows osteopenia of the spine with low FRAX index Continue vitamin-D supplementation and routine DEXA scan (3) Encounter for monitoring leflunomide therapy: Code(s): Z51.81 - Encounter for therapeutic drug level monitoring; Z79.69 - signals intelligence superintendent (current) use of other immunomodulators and immunosuppressants Plan: #Long-term leflunomide Discussed with patient the benefits and risks of leflunomide for managing the rheumatic condition Benefits include: - Reduced pain, maintenance of remission and reduction of flares Risks include: - GI upset especially diarrhea, skin rash, cytopenias, hepatotoxicity, weight loss, neuropathy Leflunomide is highly teratogenic. Has a very long half-life. Needs cholestyramine washout if there is desire for Initiation: CBC, BMP, LFTs, hepatitis-B and C serologies every 2-4 weeks for 3 months Monitoring: CBC, BMP, LFTs, hepatitis B and C serologies Plan I spent 30 minutes reviewing the record and labs, taking a history, examining the patient, discussing the treatment plan, ordering diagnostic work up and documenting in the medical record Orders: Orders Complete Blood Count Auto Diff 6 Months Z79.60 - signals intelligence superintendent (current) use of unspecified immunomodulators and immunosuppressants Erythrocyte Sedimentation Rate 6 Months Z79.60 - signals intelligence superintendent (current) use of unspecified immunomodulators and immunosuppressants Comprehensive [place]. Panel Fast 6 Months Z79.60 - [facility] (current) use of unspecified immunomodulators and immunosuppressants C Reactive Protein 6 Months Z79.60 - signals intelligence superintendent (current) use of unspecified immunomodulators and immunosuppressants Coding Level of Care Code Est Pt Level 4 (20955) Complex EM visit Add On G2211 Diagnoses Seropositive rheumatoid arthritis M05.9 Encounter for screening for osteoporosis Z13.820 Encounter for monitoring leflunomide therapy Z51.81; Z79.69
== END 2024-10-11 15:01 | disposition home or self-care (01) ==
LOC: HO.RHES 14:26
PROVIDERS: PCP Family Medicine; Visit Provider Student in an Organized Health Care Education/Training Program
DX: M05.9 Rheumatoid arthritis with rheumatoid factor, unspecified (principal); Z13.820 Encounter for screening for osteoporosis; Z51.81 Encounter for therapeutic drug level monitoring; Z79.69 Long term (current) use of other immunomodulators and immunosuppressants
CPT/HCPCS: 99214

== ENCOUNTER → 2024-10-11 14:25 | Outpatient (BNVA) | payer MEDICAID, SELFPAY | PROVIDERS: PCP Family Medicine; Visit Provider Student in an Organized Health Care Education/Training Program | DX: M05.9 Rheumatoid arthritis with rheumatoid factor, unspecified (principal); Z79.60 Long term (current) use of unspecified immunomodulators and immunosuppressants | CPT/HCPCS: 99212 ==

== ENCOUNTER 2024-10-30 13:25 | Outpatient (AMB) | payer MEDICAID, SELFPAY ==
[2024-10-30 13:32] VITALS: BP 146/76; PULSE 105; O2SAT 95; BMI 36.8
--- NOTE | 2024-10-30 13:32 | MHC.OFFVIS ---
Vital Signs 10/30/24 13:32 Height 4 ft 11 in Weight 182 lb 2 oz BMI 36.8 BP 146/76 H Blood Pressure Location Rt brachial Position Sitting Pulse 105 H Pulse Source Pulse Oximeter Pulse Oximetry (%) 95 Oxygen Delivery Method Room Air Intake Visit Reasons: Follow up 6 mo Intake Note: Patient presents follow up BONNIE medication. Compliance in chart(90/90 days, >=4hrs- 100%, Average usage-11hr 38min, Med pressure-10.6, Med leaks 15.2, AHI-0.8). Marble Setter Helper Required: Yes Marble Setter Helper Language: Freelance Operator Services: Marble Setter Helper Present Marble Setter Helper Name: Yo [id number] Information Interpreted: non-clinical & clinical Accompanied by: Self / Same As Patient Allergies penicillin G (PENICILLIN G) Allergy (Severe, Verified 10/30/24 13:37) DIZZINESS tramadol Allergy (Severe, Verified 10/30/24 13:37) Vomiting and sweats HPI Comments Details: 89 y/o Albanian speaking female patient presents for follow up of BONNIE on CPAP therapy. Marble Setter Helper on Ipad helps with history taking today. BONNIE compliance report (08/03/2024- 10/31/2024) reviewed with patient. >4 hours usage is 100% and the average usage hours 11 hours and 38 min. Med press is 11 and leaks 4.0cmH20, residual AHI was 0.8/hr. She changes washes the mask, rinses hoses, replaces filters, fills reservoir with water. She feels rested in the morning with the use of her cpap. She goes to sleep at 9pm and wakes up at 10am, with 1x bathroom break. She has RA is on 10mg of Leflunomide daily. She is taking Ariprazole 20mg for IBS, Clonidine 0.1mg PO for panic attacks and depression. Panic attacks and depression is now better controlled. Panic attacks still happen at least 1x a week, usually when she goes out alone or when she is home alone, and if she is around a group of people. She sees a therapist weekly. Restless Legs symptoms, She denies pins and needles, cramps and spasms in both calves. Her l. hip hurts a lot. Memory is stable at baseline, she forgets appt, and forgets to take her medication. [facility], [facility] Medical History Diabetes mellitus Encounter for screening for osteoporosis Irritable bowel Esophagitis Early satiety Thoracic degenerative disc disease Back pain Asthma Fibromyalgia Sleep apnea Seropositive rheumatoid arthritis Arthritis Diarrhea Surgical History History of esophagogastroduodenoscopy (EGD) History of laparoscopic cholecystectomy Hx of tubal ligation History of partial hysterectomy Hx of endoscopy History of colonoscopy Family History Father No problems noted. Mother History of high blood pressure Social History Household Members: None Housing: Apartment Do you presently have visiting nurse or other home services: No Alcohol intake: current Alcohol intake frequency: holidays/special occasions only Alcohol type: beer and wine Patient Tobacco Use Status: Former Tobacco user Tobacco use type: Cigarette e-Cigarette/Vaping Use: Never Used Substance Use Type: Marijuana Advance Directives Date on File: 09/12/23 service: No Current occupational status: disabled Review of Systems ENT Reports Normal hearing present Neuro Reports Normal hearing present Physical Exam Vital Signs: Last Vital Signs Pulse 105 H 10/30/24 13:32 BP 146/76 H 10/30/24 13:32 Pulse Ox 95 10/30/24 13:32 Oxygen Delivery Method Room Air 10/30/24 13:32 BMI result Body Mass Index 36.8 Const General: cooperative and comfortable Nutritional Appearance: obese Orientation/consciousness: patient oriented x3 HEENT Face and sinus: Yes face symmetric Throat: Yes other ([place] score is 3) Eyes Pupils: Equal, round and reactive pupils present Neck Neck: Yes full ROM and Yes supple Resp Effort & Inspection: normal respiratory effort and able to speak in complete sentences Neuro General: patient oriented x3 and moves all extremities Cranial nerves: Yes Equal, round and reactive pupils present, Yes Normal accommodation reflex present, Yes Bilaterally intact EOM present, Yes Nystagmus not present, Yes Normal facial strength present, Yes Midline tongue present, Yes Symmetric palate elevation present, Yes Normal hearing present, Yes Ability to bilaterally rotate head present and Yes Ability to bilaterally elevate shoulders present Cognition (Neuro): normal cognition Gait exam (Neuro): Normal gait present Motor exam (neuro): Abnormal motor strength present (4/5 UE and 3/5 LE) and Abnormal muscle tone present Psych Appearance: well kempt Affect: normal affect Thought process: Normal thought process present Thought content: Normal thought content present Results Reviewed Results Reviewed: BONNIE compliance report (08/03/2024- 10/31/2024) reviewed with patient. >4 hours usage is 100% and the average usage hours 11 hours and 38 min. Med press is 11 and leaks 4.0cmH20, residual AHI was 0.8/hr. Assessment & Plan Assessment & Plan (1) BONNIE on CPAP: Code(s): G47.33 - Obstructive sleep apnea (adult) (pediatric); Z99.89 - Dependence on other enabling machines and devices Category: Medical (2) Muscle cramps at night: Code(s): R25.2 - Cramp and spasm Category: Medical (3) Restless legs: Comment: with hand/leg cramps Code(s): G25.81 - Restless legs syndrome Category: Medical (4) Acid reflux: Comment: Consistent ppi switched to Omeprazole 30 mg Reflux precautions= again reviewed Encouraged Dietary modifications Avoid weight gain Code(s): K21.9 - Gastro-esophageal reflux disease without esophagitis Category: Medical Qualifiers: Esophagitis presence: without esophagitis Qualified Code(s): K21.9 - Gastro-esophageal reflux disease without esophagitis (5) Chronic fatigue: Code(s): R53.82 - Chronic fatigue, unspecified Category: Medical Plan BONNIE Continue to use APAP at [id number] as patient experiences good clinical effects. GERD Continue Omeprazole 40mg PO daily. Leg Cramps: continue magnesium 400mg PO at bedtime. l. hip pain, declines pt today. BMI is elevated, she is motivated to lose weight. Labs reviewed with pt. hga1c is elevated, defer to pcp. F/U in 6 months Orders: Orders Vitamin B1 Today G47.33 - Obstructive sleep apnea (adult) (pediatric), R53.82 - Chronic fatigue, unspecified, Z99.89 - Dependence on other enabling machines and devices TSH reflex Free T4 Today G47.33 - Obstructive sleep apnea (adult) (pediatric), R53.82 - Chronic fatigue, unspecified, Z99.89 - Dependence on other enabling machines and devices Vitamin B12 and Folate Today G47.33 - Obstructive sleep apnea (adult) (pediatric), R53.82 - Chronic fatigue, unspecified, Z99.89 - Dependence on other enabling machines and devices Vitamin B6 Today G47.33 - Obstructive sleep apnea (adult) (pediatric), R53.82 - Chronic fatigue, unspecified, Z99.89 - Dependence on other enabling machines and devices Patient Instructions: Sleep Hygiene provided: set a scheduled bedtime and wake time to help regulate the circadian rhythm and balance the release of pituitary hormones. Sleep in a dark room, temperatures below 68 degrees, and no devices n bed. Limit caffeinated products 6 hours prior to bed, and limit fluids 2-4 hours prior to bed. Gentle night yoga, diffusing essential oils, and playing soft music can be relaxing. Coding Level of Care Code Est Pt Level 4 (57967) Diagnoses BONNIE on CPAP G47.33; Z99.89 Muscle cramps at night R25.2 Restless legs G25.81 Gastroesophageal reflux disease without esophagitis K21.9 Esophagitis presence: without esophagitis Chronic fatigue R53.82
--- OUTSIDE RECORDS SUMMARY | 2024-10-30 14:20 | XMS_ITS ---
Author Organization [facility] Address [address] [place] [address] Care Team Providers Care Supervisor Vegetable Farming Name Role Phone Kay Pedersen MD Primary Care Provider [phone] Shadi Cabrera PharmD Unavailable [phone] Garrett Gilbert MD Unavailable [phone] CM Complex Status:Enrolled (Active) Start date:07/05/2024 Enrollment date:07/27/2024 Enrollment reason:ADT Feed Overview ADT- [facility] ED 07/04/24 Case Team Name Relationship Phone Joseline Mccarty RN(Responsible Staff) Registered Nurse [phone] Continued Care and Services Coordination
--- OUTSIDE RECORDS SUMMARY | 2024-10-30 14:20 | XMS_ITS | Encounter Summary ---
Author Organization [employer] Address [address] [place] [address] Care Team Providers Care Clinical Laboratory Aide Name Role Phone Kay Pedersen MD Primary Care Provider [phone] Shadi Cabrera PharmD Unavailable [phone] Garrett Gilbert MD Unavailable [phone] Encounter Details Date Type Department Care Team (Late st Contact Info) Description 10/27/2023 Orders Only [facility] [address] [place], [place] [phone] Kay Pedersen MD [address] [place], [place] [phone] Hypokalemia (Primary Dx) Social History Tobacco Use [...] Info) Description 11/09/2024 1:00 PM EDT Telemedicine [facility] [address] [place] [phone] Shadi Cabrera, PharmD [address] [place] [phone] 11/26/2024 1:45 PM EDT Office Visit [facility] [address] [place] [phone] Kay Pedersen MD [address] [place] [phone] documented as of this encounter Goals Goal [...] Results * Potassium (11/15/2023 11:00 AM EDT) [facility] Signature Potassium 3.3 3.3 - 5.1 mmol/L [facility] Blood Venous blood specimen / Unknown 11/15/2023 11:00 AM EDT 11/15/2023 1:15 PM EDT Kay Pedersen MD LAB BLOOD ORDERABLES Final Resul t Performing Organization Address [facility]/ZIP Co de Phone Number [facility] [address] [place] [address] [phone] * (ABNORMAL) Basic Metabolic Panel (11/01/2023 1:26 PM EDT) Sodium 142 135 - 145 mmol/L [facility] Potassium 3.2(L) 3.3 - 5.1 mmol/L [facility] Chloride 106 96 - 108 mmol/L [facility] Carbon Dioxide 24 22 - 29 mmol/L [facility] Anion Gap 15 12 - 20 [facility] Urea Nitrogen (BUN) 10 9 - 16 mg/dL [facility] Creatinine, Serum 0.80 0.5 - 1.4 mg/dL [facility] Estimated Glomerular Filt Rate >60 [facility] Comment:NOTE: For -Am erican individuals, multiply the result by 1.210.Chronic Kidney Disease: Estimated GFR < 60 mL/min/1.15b9Snrymv Kidney Disease: Estimated GFR < 15 mL/min/1.73m2 Glucose 164(H) 60 - 115 mg/dL [facility] Calcium 10.1 8.4 - 10.2 mg/dL [facility] Blood Venous blood specimen / Unknown 11/01/2023 1:26 PM EDT 11/01/2023 4:08 PM EDT Kay Pedersen MD LAB BLOOD ORDERABLES Final Resul t [facility] [address] [place] [phone] [phone] documented in this encounter Visit Diagnoses Diagnosis Hypokalemia- Primary Hypopotassemia documented in this encounter Additional Health Concerns Assessment Noted Time PHQ-9 Depression Total Score: 8 03/14/19 24 9:41 AM EST documented as of this encounter Care Teams Clinical Laboratory Aide Relationship Specialty Start Date End Date Kay Pedersen MD [address] [place] [address] PCP - General Family Medicine 09/10/22 Shadi Cabrera, CatalinaD [address] [place] [address] Pharmacist Internal Medicine 05/31/23 Garrett Gilbert MD [address] [place] [address] Drive [address] [place] [address] Nephrology 06/18/24 Adryan Werner MD Dog Handler Or Trainer 06/18/24 Kerry Gallo Rheumatology 06/18/24 documented as of this encounter
--- OUTSIDE RECORDS SUMMARY | 2024-10-30 14:20 | XMS_ITS ---
Author Organization [employer] Address [address] 7t [place] [address] Care Team Providers Care Tumbler Machine Operator Helper Name Role Phone Kay Pedersen MD Primary Care Provider [phone] Shadi Cabrera PharmD Unavailable [phone] Garrett Gilbert MD Unavailable [phone] Complex Status:Enrolled (Active) Start date:07/05/2024 Enrollment date:07/27/2024 Enrollment reason:ADT Feed Overview ADT- [facility] ED 07/04/24. Please outreach for enrollment. Case Team Name Relationship Phone Lynn Sandoval(Responsible Staff) [phone] Continued Care and Services Coordination
--- OUTSIDE RECORDS SUMMARY | 2024-10-30 14:20 | XMS_ITS | Encounter Summary ---
Author Organization [employer] Address [address] [place] [address] Care Team Providers Care Teletypewriter Operator Name Role Phone Kay Pedersen MD Primary Care Provider Shadi Cabrera PharmD Unavailable [phone] Garrett Gilbert MD Unavailable [phone] Encounter Details Date Type Department Care Team (Late st Contact Info) Description 06/07/2023 Orders Only [facility] [address] [place], [place] [phone] Kay Pedersen MD [address] [place], [place] [phone] Social History Tobacco Use Types Packs/Day Years [...] Info) Description 11/09/2024 1:00 PM EDT Telemedicine [facility] [address] [place] [phone] Shadi Cabrera PharmD [address] [place] [phone] 11/26/2024 1:45 PM EDT Office Visit [facility] [address] [place] [phone] Kay Pedersen MD [address] [place] [phone] documented as of this encounter Goals Goal Patient Goal Type Associated Problems Recent Progress Patient-Stated? Author Blood Pressure < 140/90 Blood Pressure 132/101(2024 2:12 PM EDT) No Shadi Cabrera PharmD documented as of this encounter Visit Diagnoses Not on filedocumented in this encounter Additional Health Concerns Assessment Noted Time PHQ-9 Depression Total Score: 8 03/14/19 24 9:41 AM EST documented as of this encounter Care Teams Teletypewriter Operator Relationship Specialty Start Date End Date Kay Pedersen MD [address] [place] [phone] PCP - General Family Medicine 09/10/22 Shadi Cabrera PharmD [address] [place] [address] [phone] Pharmacist Internal Medicine 05/31/23 Garrett Gilbert MD [address] [place] [address] Drive [address] [place] [phone] Nephrology 06/18/24 Adryan Werner MD Sailing Officer 06/18/24 Kerry Gallo Rheumatology 06/18/24 documented as of this encounter
--- OUTSIDE RECORDS SUMMARY | 2024-10-30 14:20 | XMS_ITS | Encounter Summary ---
Author Organization [employer] Address [address] [place] [address] Care Team Providers Care Child And Adolescent Psychologist Name Role Phone Kay Pedersen MD Primary Care Provider [phone] Shadi Cabrera PharmD Unavailable [phone] Garrett Gilbert MD Unavailable [phone] Encounter Details Date Type Department Care Team ([facility] st Contact Info) Description 07/05/2024 Orders Only [facility] [address] [place], [place] [phone] Kay Pedersen MD [address] [place], [place] [phone] Pneumonia of right middle lobe due to [...] Info) Description 11/09/2024 1:00 PM EDT Telemedicine [facility] [address] [place] [phone] Shadi Cabrera, PharmD [address] [place] [address] 11/26/2024 1:45 PM EDT Office Visit [facility] [address] [place] [address] Kay Pedersen MD [address] [place] [phone] Scheduled Orders Name Type Priority Associated Diagnoses [...] documented as of this encounter Care Teams Child And Adolescent Psychologist Relationship Specialty Start Date End Date Kay Pedersen MD [address] [place] [address] PCP - General Family Medicine 09/10/22 Shadi Cabrera, CatalinaD [address] [place] [address] Pharmacist Internal Medicine 05/31/23 Garrett Gilbert MD [address] [place] [address] Nephrology 06/18/24 Adryan Werner MD It Project Manager 06/18/24 Kerry Gallo Rheumatology 06/18/24 documented as of this encounter
--- OUTSIDE RECORDS SUMMARY | 2024-10-30 14:20 | XMS_ITS | Encounter Summary ---
Author Organization [employer] Address [address] [place] [address] Care Team Providers Care Lining Ironer Name Role Phone Kay Pedersen MD Primary Care Provider Shadi Cabrera PharmD Unavailable [phone] Garrett Gilbert MD Unavailable [phone] Encounter Details Date Type Department Care Team ([facility] st Contact Info) Description 10/08/2024 Orders Only [facility] [place] [address] [place], [place] [phone] Kay Pedersen MD [address] [place], [place] [phone] Social History Tobacco Use Types Packs/Day Years Used Date Smoking Tobacco: Former Passive Smoke Exposure: Past Smokeless Tobacco: Never Alcohol Use Standard Drinks/Week Comments Not Currently 0 (1 standard drink = 0.6 oz pur e alcohol) Depression Answer Date Recorded Patient Health Questionnaire-9 Score 5 07/27/2024 Patient Health Questionnaire-9 Score 5 07/27/2024 Last PHQ-9: Questionnaire Data Not on file 0 07/27/2024 Housing Stability Answer Date Recorded What is [...] Answer Date Recorded Patient Health Questionnaire-2 Score 1 07/27/2024 Internet Access Answer Date Recorded Internet Access Q1 Yes 07/27/2024 Internet Access Q2 I do not want or need it 07/06 Comments No Sex and Gender Information Value Date Recorded Sex Assigned at Female 01/04/2022 10:32 AM EDT Legal Sex Female 10:32 AM EDT Gender Identity Female 01/04/2022 10:32 AM EDT Sexual Orientation Straight 01/04/2022 10 :32 AM EDT documented as of this encounter Plan of Treatment Upcoming Encounters Date Type Department Care Team (Late st Contact Info) Description 11/09/2024 1:00 PM EDT Telemedicine [facility] [address] [place] [phone] Shadi Cabrera, PharmD [address] [place] [address] 11/26/2024 1:45 PM EDT Office Visit [facility] [address] [place] [phone] Kay Pedersen MD [address] [place] [address] documented as of this encounter Goals Goal Patient Goal Type Associated Problems Recent Progress Patient-Stated? Author Blood Pressure < 140/90 Blood Pressure 132/101(2024 2:12 PM EDT) No Shadi Cabrera PharmD documented as of this encounter Visit Diagnoses Not on filedocumented in this encounter Additional Health Concerns Assessment Noted Time PHQ-9 Depression Total Score: 5 07/28/19 25 3:55 PM EDT documented as of this encounter Care Teams Lining Ironer Relationship Specialty Start Date End Date Kay Pedersen MD [address] [place] [phone] PCP - General Family Medicine 09/10/22 Shadi Cabrera, Solange [address] [place] [address] Pharmacist Internal Medicine 05/31/23 Garrett Gilbert MD [address] [place] [address] [address] [place] [phone] Nephrology 06/18/24 Adryan Werner MD Nurse Assessor 06/18/24 Kerry Gallo Rheumatology 06/18/24 documented as of this encounter
--- OUTSIDE RECORDS SUMMARY | 2024-10-30 14:20 | XMS_ITS | Encounter Summary ---
Author Organization [employer] Address [address] [place] [address] Care Team Providers Care Small Machine Bindery Operator Name Role Phone Kay Pedersen MD Primary Care Provider [phone] Shadi Cabrera PharmD Unavailable [phone] Garrett Gilbert MD Unavailable [phone] Reason for Visit * Reason Comments Med Refill Encounter Details Date Type Department Care Team (Late st Contact Info) Description 06/22/2023 Refill [facility] [address] [place], [place] [phone] Kay Pedersen MD [address] [place], [place] [phone] Earache; Moderate persistent asthma without complication Social [...] Info) Description 11/09/2024 1:00 PM EDT Telemedicine [facility] [address] [place] [phone] Shadi Cabrera PharmD [address] [place] [phone] 11/26/2024 1:45 PM EDT Office Visit [facility] [address] [place] [phone] Kay Pedersen MD [address] [place] [phone] documented as of this encounter Goals Goal [...] documented as of this encounter Care Teams Small Machine Bindery Operator Relationship Specialty Start Date End Date Kay Pedersen MD [address] [place] [address] PCP - General Family Medicine 09/10/22 Shadi Cabrera, PharmD [address] [place] [address] Pharmacist Internal Medicine 05/31/23 Garrett Gilbert MD [address] [place] [address] [address] [place] [address] Nephrology 06/18/24 Adryan Werner MD Lasting Floorworker 06/18/24 Kerry Gallo Rheumatology 06/18/24 documented as of this encounter
--- OUTSIDE RECORDS SUMMARY | 2024-10-30 14:20 | XMS_ITS | Clinical Summary ---
Author Organization [employer] Address [address] [place] [address] Care Team Providers Care Fulfillment Associate Name Role Phone Kay Pedersen MD Primary Care Provider [phone] Shadi Cabrera PharmD Unavailable [phone] Garrett Gilbert MD Unavailable [phone] Allergies Active Allergy Reactions Criticality Noted Date Comments Penicillin G Dizziness High 11/09/2022 Penicillins Dizziness 01/25/2017 Tramadol High 01/25/2017 Other reaction(s): Vomiting and sweats Medications * This document contains information received from the source organization and may not represent a complete record from that organization. ARIPiprazole (Abilify) 20 MG tablet Take 1 tablet (20 mg) by mouth in the morning. 90 tablet 1 023 Active Blood Pressure Monitor kit Check blood pressure once daily and as needed 1 kit 023 Active Symbicort 160-4.5 MCG/ACT inhaler INHALE 2 PUFFS BY MOUTH TWICE DAILY. RINSE MOUTH AFTER USING. 023 Active omeprazole (PriLOSEC) [address] capsule TAKE 2 CAPSULES BY MOUTH ONCE DAILY IN THE MORNING 023 Active omega-3 (Fish Oil) 1000 MG capsule Take 1,000 mg by mouth in the morning. Purchases OTC Active leflunomide (Arava) 10 MG tablet Take 10 mg by mouth Once per day. Active amLODIPine (Norvasc) 10 MG tabletIndications :Primary hypertension Take 1 tablet (10 mg) by mouth Once per day. 90 tablet 3 024 Active hydrOXYzine HCl (Atarax) 25 MG tablet TAKE 1 TABLET BY MOUTH EVERY TWELVE HOURS NEEDED FOR ANXIETY 60 tablet 1 Active Alcohol Swabs (Alcohol Prep) pads Use when checking blood sugar 100 each Active FreeStyle lancets 1 each by Other route Once per day. 100 each Active FREESTYLE LITE test strip Check blood glucose 100 each 12 Active Blood Glucose Monitoring Suppl (FreeStyle Lite) w/Device kit 1 Device Once per day. 1 kit Active Dupixent 300 MG/2ML solution auto-injector Active losartan (Cozaar) 100 MG tablet Take 1 tablet (100 mg) by mouth Once per day. 30 tablet Active montelukast (Singulair) 10 MG tabletIndications :Moderate persistent asthma without complication TAKE 1 TABLET BY MOUTH AT BEDTIME 90 tablet 1 Active albuterol (2.5 MG/3ML) 0.083% nebulizer solution Take 3 mL (2.5 mg) by nebulization every 4 (four) hours if needed for wheezing or shortness of breath. 90 mL Active metFORMIN, OSM, (Fortamet) 500 MG 24 hr tablet Take 1 tablet (500 mg) by mouth with breakfast and with evening meal. Do not crush, chew, or split. 180 tablet 3 025 2025 Active potassium chloride CR (Klor-Con M20) 20 MEQ ER tablet TAKE 1 TABLET BY MOUTH ONCE DAILY DIRECTED 30 tablet 1 Active fluticasone (Flonase) 50 MCG/ACT nasal spray Administer 1-2 sprays into each nostril Once per day. Shake gently. Before first use, prime pump. After use, clean tip and replace cap. 16 g 2 025 2025 Active sertraline (Zoloft) 50 MG tablet Take 50 mg by mouth in the morning. Active Tirzepatide (Mounjaro) 2.5 MG/0.5ML solution auto-injector Inject 2.5 mg under the skin 1 (one) time per week. 2 mL Active metoprolol succinate XL (Toprol XL) 25 MG 24 hr tabletIndications :Hypertension, unspecified type Take 1 tablet (25 mg) by mouth Once per day. Do not crush or chew. 30 tablet 11 025 2025 Active atorvastatin (Lipitor) 80 MG tabletIndications :Type 2 diabetes mellitus without complication, without long-term current use of insulin ([facility]) Take 1 tablet (80 mg) by mouth Once per day. In the morning 30 tablet Active albuterol (ProAir HFA) 108 (90 Base) MCG/ACT inhaler inhale 2 puff by inhalation route every 4 - 6 hours as needed 022 2024 Discontinued(M ed list cleanup (will not trigger notification to Pharmacy)) sertraline (Zoloft) 25 MG tablet Take 25 mg by mouth in the morning. 025 2024 Discontinued(D ose adjustment) atorvastatin (Lipitor) 40 MG tabletIndications :Mixed hyperlipidemia TAKE 1 TABLET BY MOUTH AT BEDTIME 90 tablet 1 025 2024 Discontinued(D ose adjustment) furosemide (Lasix) 20 MG tablet Take 1 tablet by mouth daily while taking prednisone 30 tablet 2024 Discontinued(M ed list cleanup (will not trigger notification to Pharmacy)) Active Problems Problem Noted Date Diagnosed Date Type 2 diabetes mellitus 09/14/2024 Sinus tachycardia 03/17/2024 Assessment & Plan (06/06/2024 [...] - normal TSH - Holter monitor on 11/13/24 sinus tachycardia, HR > 100, approximately 29%. [...] liver disease (MASLD) 11/25/2023 Assessment & Plan (09/10/2024 12:54 PM EDT): - In a setting of leflunomide treatment for RA - Last liver test: 09/03/23 - Last US / elastography: 12/19/23 enlarged echogenic liver suggestive of hepatic steatosis. Normal liver stiffness. - FIB4 index 1.74 cirrhosis indeterminate - GI: [facility], last seen in Nov 2022 - continue working on lifestyle modifications - continue surveillance study - will vaccinate Hep A and B Assessment & Plan (06/06/2024 11:00 AM EDT): - In a setting of leflunomide treatment for RA - Last liver test: 09/03/23 - Last US / elastography: 12/19/23 enlarged echogenic liver suggestive of hepatic steatosis. Normal liver stiffness. - FIB4 index 1.74 cirrhosis indeterminate - GI: [facility], last seen in Nov 2022 - continue [...] index 1.74 cirrhosis indeterminate - GI: [facility], last seen in Nov 2022 - continue working on lifestyle modifications - continue surveillance study - will vaccinate Hep A and B Assessment & Plan (11/25/2023 4:58 PM EDT): - Last liver test: 09/03/23 - Last US / elastography: will order - FIB4 index 1.74 cirrhosis indeterminate - GI: [facility], last seen in Nov 2022 - continue working on lifestyle modifications - continue surveillance study - will vaccinate Hep A and B Hypokalemia 11/23/2023 Assessment & Plan (09/14/2024 4:06 PM EDT): - optimize asthma management so that she does not use albuterol excessively - continue periodic labs - continue losartan - caution with furosemide Assessment & Plan (03/12/2024 10:56 AM EST): [...] - continue periodic labs - continue losartan Osteopenia 10/12/2023 Assessment & Plan (09/14/2024 4:05 PM EDT): - Hx osteoporosis - Most recent DEXA 06/01/23 Mild osteopenia lumbar T-score -1.2 - encourage adequate calcium and vitamin D intake - encourage weight-bearing exercise Assessment & Plan (06/06/2024 11:01 AM EDT): Most recent DEXA 06/01/23 Mild osteopenia lumbar T-score -1.2 Assessment & Plan (11/24/2023 12:55 PM EDT): Most recent DEXA 06/01/23 Mild osteopenia lumbar T-score -1.2 Thoracic degenerative disc disease 10/12/2023 Fibromyalgia 04/25/2023 Assessment & Plan (09/10/2024 12:55 PM EDT): - continue duloexetine (Cymbalta) - continue judicious usee of cyclobenzaprine - continue following recommendations from rheumtalogist - continue staying physically active Assessment & Plan (06/06/2024 11:01 AM EDT): [...] of immunosuppressant medication 02/01/2023 Assessment & Plan (09/10/2024 12:50 PM EDT): - previously on methotrexate. Currently on leflunomide for RA - continue precautionary measure and periodic monitoring Assessment & Plan (03/17/2024 5:56 AM EST): - previously on methotrexate. Currently on leflunomide for RA - continue precautionary measure and periodic monitoring Irritable bowel 02/01/2023 02/01/2023 Hemorrhoids 02/01/2023 02/01/2023 Environmental allergies 02/01/2023 02/02/20 Assessment & Plan (09/14/2024 3:55 PM EDT): - patient was started on dupilumab in May 2024. - Patient developed allergic reaction in June 2024, and the offending agent was suspected as dupilumab. - Patient states she is no longer receiving dupilumab - Continue montelukast - Will confirm with her mandrel cleaner'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 Chronic upper back pain 10/12/2022 Assessment & Plan (01/31/2023 5:58 AM EST): - following with ear machine operator - continue duloxetine, cyclobenzaprine Assessment & Plan (10/14/2022 10:27 AM EDT): - following with ear machine operator - continue duloxetine, cyclobenzaprine Acid reflux [...] modifications Allergic rhinitis 10/12/2022 Assessment & Plan (09/14/2024 3:59 PM EDT): - continue montelukast - currently taking hydroxyzine prn for anxiety - previously tried antihistamine, which seemed to be discontinued - add fluticasone nasal Assessment & Plan (10/14/2022 10:32 AM EDT): - continue montelukast - switch antihistamine, loratadine to cetirizine Obstructive sleep apnea syndrome 10/11/2022 Assessment & Plan (09/10/2024 12:55 PM EDT): - following with sleep medicine clinic, last seen in Mar 2024 - Continue Auto PAP 5-15 cm H2O Assessment & Plan (06/10/2024 8:57 AM EDT): [...] Anxiety and depression 05/30/2018 Assessment & Plan (09/10/2024 12:54 PM EDT): - previously following with Thierry - current medications: Abilify; hydroxyzine; duloxetine - continue current counseling and medications Assessment & Plan (03/10/2024 6:33 PM EST): [...] Interested in Acupuncture, so given info on [facility] Acupuncture clinics. She has also been scheduled with [facility] prescriber to transfer care. Meanwhile, continue [...] Seropositive rheumatoid arthritis 05/30/2018 Assessment & Plan (09/10/2024 12:55 PM EDT): - following with [facility] Rheumatology, last seen on 03/04/24 - previously taking methotrexate - currently taking leflunomide - patient did not take leflunomide from 09/03/23 to 11/01/23 due to sepsis and cellulitis - continue current treatment plan Assessment & Plan (06/06/2024 11:02 AM EDT): - following with [facility], last seen on 03/04/24 - previously taking methotrexate - currently taking leflunomide - patient did not take leflunomide from 09/03/23 to 11/01/23 due to sepsis and cellulitis - continue current treatment plan Assessment & Plan (03/10/2024 6:33 PM EST): - following with [facility] Rhe[facility], last seen on 03/04/24 - previously taking methotrexate - currently taking leflunomide - patient did not take leflunomide from 09/03/23 to 11/01/23 due to sepsis and cellulitis - continue current treatment plan Assessment & Plan (11/25/2023 4:46 PM EDT): - following with [facility] Rhe[facility], last seen on 11/01/23 - previously taking methotrexate - currently taking leflunomide - patient did not take leflunomide from 09/03/23 to 11/01/23 due to sepsis and cellulitis - continue current treatment plan Assessment & Plan (05/01/2023 11:33 AM EST): - following with [facility] Rhuematology - previously taking methotrexate - currently taking leflunomide - continue current treatment plan Assessment & Plan (01/31/2023 5:59 AM EST): - following with [facility] Rhu[facility]ology - previously taking methotrexate - currently taking leflunomide - continue current treatment plan Assessment & Plan (10/14/2022 10:30 AM EDT): - following with [facility] Rhu[facility]ology - previously taking methotrexate - currently taking leflunomide - continue current treatment plan Polyp in nasopharynx 05/30/2018 02/01/2023 Obesity 07/05/2017 Assessment & Plan (09/14/2024 4:05 PM EDT): - patient received prednisone for [...] moderate- and vigorous-intensity activity Assessment & Plan (06/10/2024 9:06 AM EDT): [...] consider GLP1-RA Prediabetes 07/05/2017 Assessment & Plan (09/14/2024 4:02 PM EDT): - Hx systemic steroid use, more frequent in the past for RA and asthma - Previous A1C 6.6% on 05/30/24 - continue working on lifestyle modifications - optimize chronic disease management and prevent exacerbation Addendum - After this visit, patient was found to have A1C 6.9%. Although she is taking prednisone and psychiatric medications that can cause metabolic derangement, we will diagnose her with type 2 diabetes mellitus. Will start metformin. Glucometer sent. Will refer to eye care. Assessment & Plan (06/06/2024 11:03 AM EDT): [...] polyps 04/04/2017 Asthma 01/25/2017 Assessment & Plan (09/10/2024 2:04 PM EDT): - last exacerbation, today September 2024, will treat with prednisone. No antibiotic. - Exacerbation frequency every 3 to 4 months - following with [facility] pulmonology, last seen in June 2024 - PFT in 2021: FEV1 1.73 liters, 72%. Forced vital capacity 2.37 liters, 80%. Ratio 73. There is a 9% improvement in FEV1 with the administration of bronchodilators. Total lung capacity is normal. Diffusing capacity is normal. - Continue budesonide / formoterol (Symbicort) as maintenance - Continue albuterol as rescue - Continue montelukast - Continue Dupixent Assessment & Plan (06/10/2024 8:58 AM EDT): - last exacerbation in Nov 2023, treated with prednisone. No antibiotic. - following with [facility] pulmonology, last seen in Mar [...] prednisone. No antibiotic. - following with [facility] pulmonology, last seen in Jan [...] course of prednisone - following with [facility] pulmonology - Continue budesonide / formoterol (Symbicort) as maintenance - Continue albuterol as rescue - Continue montelukast Assessment & Plan (04/25/2023 3:28 PM EST): - following with [facility] pulmonology - Continue budesonide / formoterol (Symbicort) as maintenance - Continue albuterol as rescue - Continue montelukast Assessment & Plan (01/31/2023 5:56 AM EST): - following with [facility] pulmonology - Continue Symbicort as maintenance - Continue albuterol as rescue - Continue montelukast Assessment & Plan (10/14/2022 9:40 AM EDT): - following with [facility] pulmonology - Continue Symbicort as maintenance - Continue albuterol as rescue - Continue montelukast Hyperlipidemia 01/25/2017 Assessment & Plan (09/12/2024 10:38 PM EDT): - On atorvostatin. and omega 3 - continue working on lifestyle modifications - Last lipid profile 09/10/24 TRIG 273; CHOL 226; LDL 121; HDL 51 Assessment & Plan (06/06/2024 11:05 AM EDT): [...] lipid panel Hypertension 01/25/2017 Assessment & Plan (09/14/2024 3:57 PM EDT): -Goal BP < 130/80 per ACC/AHA guideline (Treatment threshold >= ) -BP was not at goal, but it has been labile, previously had Dx HTN and was taking atenolol -Continue working on lifestyle modifications -Recommended self-monitoring BP. -Continue losartan 100 mg daily -Continue amlodipine 10 mg; consider changing to a combo pill -Continue clonidine 0.1 mg bid -Start Furosmide 20 mg daily, while taking prednisone. Monitor K. May consider spironolactone. -Start tirzepatide to achieve healthy weight -Consider beta royal since patient is tachycardic -Treatment Hx: atenolol, which was discontinued for unclear reason -Her high blood pressure could be due to all of the medications she takes Assessment & Plan (06/10/2024 9:01 AM EDT): [...] Encounters Date Type Department Care Team Description 10/25/2024 Patient Outreach [address] [phone] Kay Pedersen MD Care Management (C3CM- f/u call) 10/24/2024 Patient Outreach [address] [address] Kay Pedersen MD Care Coordination (Appt reminder) 10/11/2024 Patient Outreach [address] [address] Kay Pedersen MD Care Management (C3CM- f/u call) 10/11/[address] [address] Kay Pedersen MD 10/10/2024 Patient Outreach [address] [address] Kay Pedersen MD Care Coordination (Appt reminder) 10/08/2024 1:30 PM EDT Telemedicine [address] [address] Shadi Cabrera, PharmD Hypertension, unspecified type (Primary Dx); Moderate persistent asthma without complication; Type 2 diabetes mellitus without complication, without long-term current use of insulin ([facility]) 10/08/2024 Orders Only [address] [address] Kay Pedersen MD 10/03/2024 Orders Only GENERIC EXTERNAL DATA DEPARTMENT Provider, Generic External Data 10/01/2024 Patient Outreach [address] [address] Kay Pedersen MD Care Coordination (Appt reminder) 09/26/2024 Patient Outreach [address] [address] Kay Pedersen MD Care Coordination (SDNE f/u) 09/26/2024 Patient Outreach [address] [address] Kay Pedersen MD Care Management (C3- f/u call) 09/20/2024 Telephone [facility] [place] [phone] Kay Pedersen MD Care Management (C3- f/u call/ results) 09/14/2024 Orders Only [address] [place] [phone] Kay Pedersen MD Type 2 diabetes mellitus with other specified complication, without long-term current use of insulin ([facility]) (Primary Dx) 09/14/2024 Orders Only [address] [place] [address] Kay Pedersen MD Hypokalemia (Primary Dx) 09/14/2024 Results [facility]-Up [address] [facility] [place] [phone] Kay Pedersen MD Albumin, Random Urine W/Creatinine, Comprehensive Metabolic Panel, Lipid Panel with Reflex to Direct LDL, Hemoglobin A1c 09/12/2024 Telephone [facility] [place] [phone] Marifer Pearson CNM chart prep 09/10/2024 1:45 PM EDT Office Visit [facility] [place], [place] [phone] Kay Pedersen MD Hypertension, unspecified type (Primary Dx); Mixed hyperlipidemia; Prediabetes; Metabolic dysfunction-associated steatotic liver disease (MASLD); Seropositive rheumatoid arthritis ([facility]); Fibromyalgia; Long-term use of immunosuppressant medication; Moderate persistent asthma without complication; Obstructive sleep apnea syndrome; Anxiety and depression; Environmental allergies; Allergic rhinitis, unspecified seasonality, unspecified trigger; Osteopenia, unspecified location; Class 2 severe obesity due to excess calories with serious comorbidity and body mass index (BMI) of 39.0 to 39.9 in adult ([facility]); Hypokalemia 09/10/2024 Travel 09/06/2024 Telephone [facility] [place] [address] Kay Pedersen MD chart prep 09/05/2024 Patient Outreach [address] [address] Kay Pedersen MD Care Management (C3CM- f/u call) 08/22/2024 Patient Outreach [address] [address] Kay Pedersen MD 08/22/[address] [address] Kay Pedersen MD Moderate persistent asthma without complication; Mixed hyperlipidemia 08/21/2024 Patient Outreach [address] [address] Kay Pedersen MD Care Management (C3CM- f/u call) 08/16/[address] [address] Marifer Pearson CNM 08/14/2024 Orders Only [address] [address] Kay Pedersen MD 08/13/2024 Patient Outreach [address] [address] Kay Pedersen MD Care Coordination (Appt reminder) 08/10/2024 3:00 PM EDT Telemedicine [address] [address] Shadi Cabrera, PharmD Hypertension, unspecified type (Primary Dx); Moderate persistent asthma without complication 08/10/2024 Patient Outreach [address] [address] Kay Pedersen MD Care Coordination ([facility] f/u) 08/10/2024 Patient Outreach [address] [address] Kay Pedersen MD Care Management (C3- f/u call) 08/10/[address] [address] Kay Pedersen MD Prior Authorization from Last 3 Months Immunizations Immunization Administration Dates Next Due Hep A, Adult [...] Sign Reading Time Taken Comments Blood Pressure 132/101 10/08/2024 2:12 PM EDT [facility] (Televisit) Pulse 102 10/08/2024 2:12 PM EDT Temperature 36.5 C (97.7 F) 09/10/2024 1:17 PM EDT Respiratory Rate 15 09/10/2024 1:17 PM EDT Oxygen Saturation 98% 09/10/2024 1:1 7 PM EDT Inhaled Oxygen Concentration - - Weight 90.1 kg (198 lb 9.6 oz) 09/10/2024 1:17 PM EDT Height 151.5 cm (4' 11.65 ) 09/10/2024 1:17 PM EDT Body Mass Index 39.25 09/10/2024 1:17 PM EDT Plan of Treatment Upcoming Encounters Date Type Department Care Team (Late st Contact Info) Description 11/09/2024 1:00 PM EDT Telemedicine [facility] [address] [place] [phone] Shadi Cabrera, PharmD [address] [place] [phone] 11/26/2024 1:45 PM EDT Office Visit [facility] [address] [place] [phone] Kay Pedersen MD [address] [place] [address] Health Maintenance Due Date Last Done Comments CT Colonography 1975 FIT DNA/Cologuard 1975 FIT 1975 FOBT 1975 Sigmoidoscopy 1975 Diabetes: Foot Exam 06/28/1985 Family Planning (PISQ) 06/28/1990 COVID-19 Vaccine ( season) 2023 04/12/2022, 01/26/2021, 01/05/2021 Hepatitis A Vaccines (2 of 2 - Risk 2-dose series) 09/09/2024 03/12/2024 Influenza Vaccine (#1) 2024 , 01/31/2023, 01/02/2021, Additional history exists Alcohol/Substance Use Screening 03/12/2025 03/12/2024 Diabetes: Hemoglobin A1C 03/13/2025 025, 05/30/2024, 10/05/2023, Additional history exists Disability Screening 06/05/2025 06/05/2024 Zoster Vaccines (1 of 2) 06/28/2025 Eye Exam 07/04/2025 07/05/2023, 06/07, 07/05/2023, Additional history exists Depression Screening 07/27/2025 07/27/2024, 07/28/19 25 SDOH Screening 07/27/2025 07/27/2024 Diabetes: Urine Protein Screening 09/10/2025 09/10/2024 Lipid Panel 09/10/2025 09/10/2024, 05/06, 05/20/2023, Additional history exists Tobacco Screening 09/10/2025 09/10/2024 Mammogram 08/14/2026 08/14/2024, 05/06, 10/07/2017 DTaP/Tdap/Td Vaccines (2 - Td or Tdap) 04/04/2028 04/04/2018 Colonoscopy 11/09/2032 11/09/2022 Colorectal Cancer Screening 11/09/2032 RSV Patients and Patients Aged 60 years or older (1 - 1-dose 75+ series) 06/28/2050 HIV Screening Completed 04/18/2019 Pneumococcal Vaccine: Pediatrics (0 to 5 Years) and At-Risk Patients (6 to 49) Years Completed 01/31/2023 Hepatitis B Vaccines Completed 07/07/2023, 01/31/2023, 10/12/2022 Hepatitis C Screening Completed 10/03/2024, 023 HIB Vaccines Aged Out No longer eligi ble based on patient's age to complete this topic HPV Vaccines Aged Out No longer eligi ble based on patient's age to complete this topic IPV Vaccines Aged Out No longer eligi ble based on patient's age to complete this topic Meningococcal B Vaccine Aged Out No l onger eligible based on patient's age to complete [...] 132/101(2024 2:12 PM EDT) No Shadi Cabrera, Solange Procedures Procedure Name Priority Date/Time Associated Diagnosis Comments VITAMIN D 25-OH (D2 AND D3) Routine 10/03/2024 9:13 AM EDT T-SPOT(R).TB Routine 10/03/2024 9:13 AM EDT HEPATITIS PANEL, GENERAL Routine 10/03/2024 9:13 AM EDT SED RATE BY MODIFIED WESTERGREN Routine 10/03/2024 9:13 AM EDT C-REACTIVE PROTEIN Routine 10/03/2024 9: 13 AM EDT COMPREHENSIVE METABOLIC PANEL Routine 10/03/2024 9:13 AM EDT CBC WITH AUTO DIFFERENTIAL Routine 10/03/2024 9:13 AM EDT HEMOGLOBIN A1C Routine 09/10/2024 2:04 PM EDT Prediabetes LIPID PANEL WITH REFLEX TO DIRECT LDL Routine 09/10/2024 2:04 PM EDT Hypertension, unspecified type COMPREHENSIVE METABOLIC PANEL Routine 09/10/2024 2:04 PM EDT Hypertension, unspecified type ALBUMIN, RANDOM URINE W/CREATININE Routine 09/10/2024 2:04 PM EDT Hypertension, unspecified type Prediabetes BI MAMMOGRAM SCREENING TOMOSYNTHESIS BILATERAL Routine 08/14/2024 12:45 PM EDT HM COLONOSCOPY Routine 11/09/2022 ZZZ HISTORICAL HIV AB/AG Routine 04/18/2019 11:04 AM EST from Last 3 Months or Most Recently Relevant to Health Maintenance Results * VITAMIN D 25-OH (D2 AND D3) (10/03/2024 9:13 AM EDT) Vitamin D, 25-OH, D2 <4 ng/mL [facility] Comment:This test was develo ped and its analytical performancecharacteristics have been determined by [employer] [place], [place]. It hasnot been cleared or approved by the U.S. Food and DrugAdministration. This assay has been validated pursuantto the CLIA regulations and is used for clinicalpurposes.THIS TEST WAS PERFORMED AT:[facility] [id number] [place] [address]THISJPV W. MASON,MD,PHD Vitamin D, 25-OH, D3 37 ng/mL [facility] Comment:This test was develo ped and its analytical performancecharacteristics have been determined by [employer] [place], [place]. It hasnot been cleared or approved by the U.S. Food and DrugAdministration. This assay has been validated pursuantto the CLIA regulations and is used for clinicalpurposes. Vitamin D, 25-OH, Total 37 30 - 100 ng/mL [facility] Comment:Vitamin D, 25-Hydrox y reports concentrations of twocommon forms, 25-OHD2 and 25-OHD3. 25-OHD3 indicatesboth endogenous production and supplementation.25-OHD2 is an indicator of exogenous sources such asdiet or supplementation. Therapy is based onmeasurement of Total 25-OHD, with levels <20 ng/mLindicative of Vitamin D deficiency, while levelsbetween 20 ng/mL and 30 ng/mL suggest insufficiency.Optimal levels are > or = 30 ng/mL.For additional information, please refer [email or web address]/[email or web address](This link is being provided for informational/educational purposes only.) 10/03/2024 9:13 AM EDT 10/03/2024 11:23 AM EDT us Generic External Data Provider LAB BLOOD ORDERAB LES Final Result [facility] [address] [place] [address] [phone] * T-SPOT??.TB (10/03/2024 9:13 AM EDT) [facility] T Spot TB Negative Negative [facility] Comment:A negative test resu lt does not exclude the possibilityof exposure to or infection with Mycobacteriumtuberculosis (M. tuberculosis). Patients with recentexposure to TB infected individuals exhibiting anegative T-SPOT.TB result should be considered forretesting within 6 weeks or if other relevant clinicalsymptoms indicate. Results from T-SPOT.TB testing mustbe used in conjunction with each individual'sepidemiological history, current medical status,and results of other diagnostic evaluations.The T-SPOT.TB test is qualitative and results arereported as positive, borderline, or negative, giventhat the test controls perform as expected. In linewith the Centers for Disease Control and Prevention's2010 recommendation to report quantitative measurementsalongside the qualitative result, the laboratoryprovides spot counts for informational purposes only.The T-SPOT.TB test should not be interpreted as aquantitative test. TS PANEL A 0 [facility] TS PANEL B 0 [facility] Negative Control Passed [facility] Positive Control Passed [facility] Comment:For additional infor scottie, please refer [email or web address]/faq/[email or web address](This link is being provided for informational/educational purposes only.)THIS TEST WAS PERFORMED AT:[employer] [id number] [place] [address]FZVKBEHTITO EDMONDS MD,PHD 10/03/2024 9:13 AM EDT 10/03/2024 11:18 AM EDT Generic External Data Provider LAB BLOOD ORDERAB LES Final Result Performing Organization Address [facility]/ZIP Co de Phone Number [facility] [address] [place] [address] [phone] * Hepatitis Panel, General (10/03/2024 9:13 AM EDT) Pathologist [facility] Hepatitis A IgM Nonreactive Nonreactive [facility] Comment:IgM antibodies to MCDANIEL V not detected; does not exclude earlyacute or recovered HAV infection. ~Hepatitis B Surface Antibody NONREACTIVE Nonreactive [facility] Comment:Nonreactive: < 8.00 mIU/mL Hepatitis B Core Antibody Nonreactive Nonreactive [facility] Hepatitis C Antibody Nonreactive Nonreactive [facility] Comment:Antibodies to HCV no t detected; does not exclude early acuteHCV infection. Hepatitis B Surface Ag Negative Negative [facility] 10/03/2024 9:13 AM EDT 10/03/2024 11:23 AM EDT Generic External Data Provider LAB BLOOD ORDERAB LES Final Result Performing Organization Address [facility] Co de Phone Number [facility] [address] [place] [address] [phone] * (ABNORMAL) CBC auto differential (10/03/2024 9:13 AM EDT) White Blood Count 8.1 4.8 - 10.8 X10*3/uL [facility] Red Blood Count 5.61(H) 4.20 - 5.50 X10*6/uL [facility] Hemoglobin 15.3 12.0 - 16.0 g/dl [facility] Hematocrit 47.3(H) 37.0 - 47.0 % [facility] Mean Corpuscular Volume 84.3 80.0 - 98.0 fL [facility] Mean Corpuscular Hemoglobin 27.3 27.0 - 33.0 pg [facility] Mean Corpuscular HGB Conc 32.3 31.0 - 35.0 g/dl [facility] Red Cell Distribution Width 13.2 11.0 - 16.0 % [facility] Platelet Count 264 160 - 400 X10*3/uL [facility] Mean Platelet Volume 11.9 9.4 - 12.3 fL [facility] Neutrophils Percent Auto 38.3(L) 45 - 73 % [facility] Imm Gran Pct Auto 0.2 0.0 - 0.4 % [facility] Lymphocytes Percent Auto 45.9(H) 20 - 40 % [facility] Monocytes Percent Auto 6.2 2 - 11 % [facility] Eosinophils Percent Auto 8.4(H) 0 - 4 % [facility] Basophils Percent Auto 1.0 0 - 2 % [facility] NRBC Pct Auto 0.0 0.0 - 0.2 /100WBC [facility] Neutrophils Absolute Auto 3.1 2.0 - 8.3 x10*3/uL [facility] Imm Gran Abs Auto 0.02 0.00 - 0.03 X10*3/uL [facility] Lymphocytes Absolute Auto 3.7 1.2 - 4.9 X10*3/uL [facility] Monocytes Absolute Auto 0.5 0.1 - 1.2 X10*3/uL [facility] Eosinophils Absolute Auto 0.7(H) 0.0 - 0.4 X10*3/uL [facility] Basophils Absolute Auto 0.1 0.0 - 0.2 X10*3/uL [facility] NRBC Abs Auto 0.000 0.0 - 0.012 X10*3/uL [facility] 10/03/2024 9:13 AM EDT 10/03/2024 11:18 AM EDT us Generic External Data Provider LAB BLOOD ORDERAB LES Final Result [facility] [address] [place] [address] [phone] * Sed Rate by Modified Philergren (10/03/2024 9:13 AM EDT) [facility] Erythrocyte Sedimentation Rate 6 0 - 20 MM/HR [facility] Comment:Patients with polycy themia and many hemoglobin abnormalitiesmay have depressed sed rates whereas patients with anemiamay have elevated sed rates. 10/03/2024 9:13 AM EDT 10/03/2024 11:18 AM EDT Generic External Data Provider LAB BLOOD ORDERAB LES Final Result Performing Organization Address [facility] Co de Phone Number [facility] [address] [place] [phone] * C-reactive Protein (10/03/2024 9:13 AM EDT) [facility] C Reactive Protein 0.44 < or = 0.50 mg/dL [facility] 10/03/2024 9:13 AM EDT 10/03/2024 11:23 AM EDT Generic External Data Provider LAB BLOOD ORDERAB LES Final Result Performing Organization Address [facility] Co de Phone Number [facility] [address] [place] [phone] * (ABNORMAL) Comprehensive Metabolic Panel (10/03/2024 9:13 AM EDT) Only the most recent of2 resultswithin the time period is included. [facility] Sodium 141 135 - 145 mmol/L [facility] Potassium 3.2(L) 3.3 - 5.1 mmol/L [facility] Chloride 107 96 - 108 mmol/L [facility] Carbon Dioxide 23 22 - 29 mmol/L [facility] Anion Gap 14 12 - 20 [facility] Urea Nitrogen (BUN) 9 9 - 16 mg/dL [facility] Creatinine, Serum 0.84 0.5 - 1.4 mg/dL [facility] Estimated Glomerular Filt Rate >60 [facility] Comment:Chronic Kidney Disea se: Estimated GFR < 60 mL/min/1.68n2Ylstcj Kidney Disease: Estimated GFR < 15 mL/min/1.73m2 Glucose 125(H) 60 - 115 mg/dL [facility] Calcium 9.4 8.4 - 10.2 mg/dL [facility] Bilirubin, Total 0.3 0.0 - 1.0 mg/dL [facility] Aspartate Amino Transferase 37(H) 5 - 31 U/L [facility] Alanine Aminotransferase 39(H) 0 - 31 U/L [facility] Total Protein 7.0 6.5 - 8.0 g/dL [facility] Albumin Level 4.5 3.5 - 5.0 g/dL [facility] Alkaline Phosphatase 126(H) 39 - 117 U/L [facility] 10/03/2024 9:13 AM EDT 10/03/2024 11:23 AM EDT us Generic External Data Provider LAB BLOOD ORDERAB LES Final Result [facility] [address] [place] [phone] * (ABNORMAL) Lipid Panel with Reflex to Direct LDL (09/10/2024 2:04 PM EDT) Triglycerides 273(H) <150 mg/dL [facility] Comment:Desirable Triglyceri de: less than 150 mg/dLBorderline High Triglyceride 150-199 mg/dLHigh Triglyceride: 200-499 mg/dLVery High Triglyceride: greater than or equal to 5OO mg/dL Cholesterol 226(H) <200 mg/dL [facility] Comment:Desirable Cholestero l: less than 200 mg/dLBorderline High Cholesterol: 200-239 mg/dLHigh Cholesterol: greater than 239 mg/dL LDL Cholesterol Calculated 121(H) <100 mg/dL [facility] Comment:Desirable LDL: less than 100 mg/dLNear Optimal/Above Optimal LDL: 110- 129 mg/dLBorderline High LDL: 130-159 mg/dLHigh LDL: 160-189 mg/dLVery High LDL: greater than or equal to 190 mg/dL HDL Cholesterol 51 >40 mg/dL [facility] Comment:Desirable HDL: great er than 40 mg/dL Note: This HDL assay may give artificially low results in patients with liver disease. Blood 09/10/2024 2:04 PM EDT 09/10/2024 5:08 PM EDT us Kay Pedersen MD LAB BLOOD ORDERABLES Final Resul t Performing Organization Address [facility] Co de Phone Number [facility] [address] [place] [address] [phone] Albumin, Random Urine W/Creatinine (09/10/2024 2:04 PM EDT) Creatinine, Urine 53.30 mg/dL [facility] Microalbumin Urine 12.0 mg/L [facility] Microalbum Creatinine Ratio Ur 22.5 <30 ug/mg cr [facility] Comment:Albumin/Creatinine R atio Reference Ranges: Normal: < 30 ug/mg creatinine Microalbuminuria: 30 - 300 ug/mg creatinineClinical Albuminuria: > 300 ug/mg creatinine Urine 09/10/2024 2:04 PM EDT 09/10/2024 4:12 PM EDT us Kay Pedersen MD LAB URINE ORDERABLES Final Resul t Performing Organization Address [facility] Co de Phone Number [facility] [address] [place] [address] [phone] * (ABNORMAL) Hemoglobin A1c (09/10/2024 2:04 PM EDT) Hemoglobin A1c 6.9(H) <6.0 % [facility] Comment:Hemoglobin A1C Refer ence Range Adults: 4.8 - 6.0 % Non diabetic: < 6.0 % Goal: < 7.0 %Additional Action Suggested: > 8.0 %Note: Hemoglobin A1c results are invalid for patients with abnormal amounts of HbF. Blood transfusions may impact the HbA1c concentration in the patient sample. Estimated Average Glucose 151 mg/dL [facility] Comment:eAG = Estimated ave rage glucose which is %A1C expressed asaverage glucose, using the formula of the M0X-PpueybfBpbncrr Glucose study (ADAG), Diabetes Care, Vol.31,#8,Oct. 2007 Blood Venous blood specimen / Unknown 09/10/2024 2:04 PM EDT 09/10/2024 5:08 PM EDT us Kay Pedersen MD LAB BLOOD ORDERABLES Final Resul t [facility] [address] [place] [phone] * BI Mammogram Screening Tomosynthesis Bilateral (08/14/2024 12:45 PM EDT) Anatomical Region Laterality Modality Breast Bilateral Mammography 08/14/2024 12:4 5 PM EDT Narrative 08/21/2024 5:53 PM EDT [facility] [address] [place] [address] Mammography Report Signed Patient: Mariluz Pisano MR#: [id number] : 1975 Acct:[id number] Age/Sex: 49 / F ADM Date: 08/14/24 Loc: [facility] Attending Dr: Kay Pedersen MD Ordering Physician: Kay Pedersen MD Results: 1Negative Date of Service: 08/14/24 Follow Up: 1 Year From [facility] Mammogram Procedure(s): MM tomosynthesis screening BI Accession Number(s): [id number] cc: Kay Pedersen MD EXAMINATION: MM SCREENING DIGITAL BREAST TOMOSYNTHESIS, BILATERAL CLINICAL INFORMATION: Screening. Asymptomatic. COMPARISON: Mammography: Comparison is made with available priors TECHNIQUE: Digital breast mammography with tomosynthesis is performed in both the craniocaudal and mediolateral oblique views along with computer-aided detection (CAD). FINDINGS: There are scattered areas of fibroglandular [...] target due date for their next mammogram. Electronically signed by: Bonny Naqvi DO 08/21/2024 05:51 PM EDT RP Dictated By: Bonny Naqvi DO Signed By: <Electronically signed by Bonny Naqvi DO in OV> 08/21/24 1751 DD/ 1245 TD/TT: 08/14/24 1255 Mold Finisher: Procedure Note Donotuseinterpreter, Image - 08/21/2024 [facility] [address] [place] [address] Mammography Report Signed Patient: Debo Pisano#: M [id number] : 1975Acct:[id number] Age/Sex: 49 / FADM Date: 08/14/24 Loc: [facility] Attending Dr: Kay Pedersen MD Ordering Physician: Kay Pedersen MDResults: 1Negative Date of Service: 08/14/24Follow Up: 1 Year From Orig inal Mammogram Procedure(s): MM tomosynthesis screening BI Accession Number(s): [id number] cc: Kay Pedersen MD EXAMINATION: MM SCREENING DIGITAL BREAST TOMOSYNTHESIS, BILATERAL CLINICAL INFORMATION: Screening. Asymptomatic. COMPARISON: Mammography: Comparison is made with available priors TECHNIQUE: Digital breast mammography with tomosynthesis is performed in both the craniocaudal and mediolateral oblique views along with computer-aided detection (CAD). FINDINGS: There are scattered areas of fibroglandular [...] target due date for their next mammogram. Electronically signed by: Bonny Naqvi DO 08/21/2024 05:51 PM EDT RP Dictated By: Bonny Naqvi DO Signed By: <Electronically signed by Bonny Naqvi DO in OV> 08/21/24 1751 DD/ 1245 TD/TT: 08/14/24 1255 Mold Finisher: Kay Pedersen MD IMG BI PROCEDURES Final Result * Hm Colonoscopy (11/09/2022) Colonoscopy Normal Normal 11/09/2022 Jacinto Daniel MD HEALTH MAINTENANCE Final Result * HIV AB/AG (04/18/2019 11:04 AM EST) HIV AG/AB NONREACTIVE [facility] Comment: HIV-1 p24 Ag and/or HIV-1/HIV-2 Ab not detected. A test result that is nonreactive does not exclude the possibility of exposure to or infection with HIV-1 and/or HIV-2. Nonreactive results in this assay for individuals with prior exposure to HIV-1 and/or HIV-2 may be due to antigen and antibody levels that are below the limit of detection of this assay. The [employer] HIV Ag/Ab Combo assay result and supplemental assay results should be interpreted in conjunction with the patient's clinical presentation, history and other laboratory results. If the results are inconsistent with clinical evidence, additional testing is suggested to confirm the result. 04/18/2019 11:0 4 AM EST us Tanner Reyes MD HISTORICAL/NON ORDERABLE LAB S Final Result [facility] [address] from Last 3 Months or Most Recently Relevant to Health Maintenance [facility] Care Teams Fulfillment Associate Relationship Specialty Start Date End Date Kay Pedersen MD [address] [place], [place] [phone] PCP - General Family Medicine 09/10/22 Shadi Cabrera, PharmD [address], [place] [phone] Pharmacist Internal Medicine 05/31/23 Garrett Gilbert MD [address] [place] [address] Nephrology 06/18/24 Adryan Werner MD Senior Compensation Analyst 06/18/24 Kerry Gallo Rheumatology 06/18/24
--- OUTSIDE RECORDS SUMMARY | 2024-10-30 14:20 | XMS_ITS | Encounter Summary ---
Author Organization [employer] [facility] Address [address] [facility] 7t [place] [address] Care Team Providers Care First Dyer Name Role Phone Kay Pedersen MD Primary Care Provider [phone] Shadi Cabrera PharmD Unavailable [phone] Garrett Gilbert MD Unavailable [phone] Reason for Referral * Consultation (Routine) - Closed Specialty Diagnoses / Procedures Referred By Contac t Referred To Contact Optometry Diagnoses Type 2 diabetes mellitus with other specified complication, without long-term current use of insulin (CMS/HCC) Kay Pedersen MD [address] [place] [address] Phone: tel: fax: [facility] OPTOMETRY [address] [place] [address] Phone: tel: fax: Referral ID Status Reason Start Date Expiration Date V isits Requested Visits Authorized [id number] Closed Consult and Treat 09/14/2024 09/14/2025 1 1 Encounter Details Date Type Department Care Team (Late st Contact Info) Description 09/14/2024 Orders Only [facility] [address] [place], [place] [phone] Kay Pedersen MD [address] [place], [place] [phone] Type 2 diabetes mellitus with other specified complication, without long-term current use of insulin (CMS/HCC) (Primary Dx) Social History Tobacco Use Types [...] Info) Description 11/09/2024 1:00 PM EDT Telemedicine [facility] [address] [place] [address] Shadi Cabrera, PharmD [address] [place] [address] 11/26/2024 1:45 PM EDT Office Visit [facility] [address] [place] [phone] [place] [address] Scheduled Referrals Name Type Priority Associated Diagnoses Orde r Schedule Referral to [facility] Eye Care Outpatient Referral Routine Type 2 diabetes mellitus with other specified complication, without long-term current use of insulin ([facility]) Expected: 09/14/2024 (Approximate), Expires: 09/14/2025 documented as of this encounter Goals Goal Patient Goal Type Associated Problems Recent Progress Patient-Stated? Author Blood Pressure < 140/90 Blood Pressure 132/101(2024 2:12 PM EDT) No Shadi Cabrera, PharmD documented as of this encounter Visit Diagnoses Diagnosis Type 2 diabetes mellitus with other specified complication, without long-term current use of insulin ([facility])- Primary documented in this encounter Additional Health Concerns Assessment Noted Time PHQ-9 Depression Total Score: 5 07/28/19 3:55 PM EDT documented as of this encounter Care Teams First Dyer Relationship Specialty Start Date End Date Kay Pedersen MD [address] [place] [phone] PCP - General Family Medicine 09/10/22 Shadi Cabrera, PharmD [address] [place] [phone] Pharmacist Internal Medicine 05/31/23 Garrett Gilbert MD [address] [place] [address] Nephrology 06/18/24 Adryan Werner MD Operations Support Representative 06/18/24 Kerry Gallo Rheumatology 06/18/24 documented as of this encounter
--- OUTSIDE RECORDS SUMMARY | 2024-10-30 14:20 | XMS_ITS | Encounter Summary ---
Author Organization [employer] [facility] Address [address] [facility] 7t [place] [address] Care Team Providers Care Timber Management Technician Name Role Phone Kay Pedersen MD Primary Care Provider [phone] Shadi Cabrera PharmD Unavailable [phone] Garrett Gilbert MD Unavailable [phone] Reason for Visit * Reason Comments Care Management C3CM- f/u call Encounter Details Date Type Department Care Team ([facility] st Contact Info) Description 10/25/2024 Patient Outreach [facility] [address] [place], [place] [phone] Kay Pedersen MD [address] [place], [place] [phone] Care Management (C3CM- f/u call) Social History Tobacco Use Types Packs/Day Years [...] AM EDT documented as of this encounter Progress Notes * Joseline Mccarty RN - 10/25/2024 10:39 AM EDT JOSEFINA Mccarty RN placed outbound call to patient. Patient's name, and address confirmed. Patient states is doing well with no recent illnesses or emergency room visits. Patient confirms attending visit with Rheumatology as scheduled. She states the visit went well. She reports taking the Leflunomide as directed. She will be completing labs prior to her f/u visit which is scheduled on 04/16/25 at 2:00pm. Per patient, BP and blood sugars have been well controlled. She states her high glucose reading has been 117mg/dL. Patient reports compliance to medication regimen. She states she started the tuesday of this week. She denies any concerns. CM reminded patient of her scheduled visit with [facility] today 10/25/24 at 2:00pm. Patient verbalizes understanding and states she will try to make the appt. She agrees to contact the office to reschedule if she is not able to attend. No further questions or concerns. CM reinforced direct contact information for any additional questions or concerns. Education provided on [facility]In Ur[facility] Care located in [facility]. Patient provided with after-hours line for [facility], , which offer night time triage service and option to transfer to sheet rock installation helper provider if needed. Patient verbalizes understanding, and able to r epeat back to teletypewriter installer. A follow up call will be placed within 10 days, patient agrees with plan. documented in this encounter Plan of Treatment Upcoming Encounters Date Type Department Care Team (Late st Contact Info) Description 11/09/2024 1:00 PM EDT Telemedicine [facility] [address] [place] [phone] Shadi Cabrera PharmD [address] [place] [phone] 11/26/2024 1:45 PM EDT Office Visit [facility] [address] [place] [phone] Kay Pedersen MD [address] [place] [phone] documented as of this encounter Goals Goal [...] documented as of this encounter Care Teams Timber Management Technician Relationship Specialty Start Date End Date Kay Pedersen MD [address] [place] [phone] PCP - General Family Medicine 09/10/22 Shadi Cabrera PharmD [address] [place] [phone] Pharmacist Internal Medicine 05/31/23 Garrett Gilbert MD [address] [place] [address] Drive [address] [place] [address] Nephrology 06/18/24 Adryan Werner MD Cardiac Monitor 06/18/24 Kerry Gallo Rheumatology 06/18/24 documented as of this encounter
--- OUTSIDE RECORDS SUMMARY | 2024-10-30 14:20 | XMS_ITS | Encounter Summary ---
Author Organization [employer] [facility] Address [address] [facility] 7t [place] [address] Care Team Providers Care Watch Assembler Name Role Phone Kay Pedersen MD Primary Care Provider [phone] Shadi Cabrera PharmD Unavailable [phone] Garrett Gilbert MD Unavailable [phone] Reason for Referral * Consultation (Routine) - Pending Review Specialty Diagnoses / Procedures Referred By Contbelkys t Referred To Contact Pharmacy Diagnoses Hypertension, unspecified type Moderate persistent asthma without complication Kay Pedersen MD [address] [place] [address] Phone: tel: fax: Referral ID Status Reason Start Date Expiration Date Visits Requested Visits Authorized [id number] Pending Review Consult and Treat 12/05/2023 12/04/2024 6 6 Encounter Details Date Type Department Care Team (Late st Contact Info) Description 12/05/2023 Orders Only [facility] [address] [place], [place] [phone] Kay Pedersen MD [address] [place], [place] [phone] Hypertension, unspecified type (Primary Dx); Moderate persistent [...] 11/09/2024 1:00 PM EDT Telemedicine [facility] [address] [place] [phone] Shadi Cabrera, CatalinaD [address] [place] [phone] 11/26/2024 1:45 PM EDT Office Visit [facility] [address] [place] [phone] Kay Pedersen MD [address] [place] [phone] Scheduled Referrals Name Type Priority Associated Diagnoses [...] documented as of this encounter Care Teams Watch Assembler Relationship Specialty Start Date End Date Kay Pedersen MD [address] [place] [address] PCP - General Family Medicine 09/10/22 Shadi Cabrera, PharmD [address] [place] [address] Pharmacist Internal Medicine 05/31/23 Garrett Gilbert MD [address] [place] [address] Nephrology 06/18/24 Adryan Werner MD Advertising Intern 06/18/24 Kerry Gallo Rheumatology 06/18/24 documented as of this encounter
--- OUTSIDE RECORDS SUMMARY | 2024-10-30 14:20 | XMS_ITS | Encounter Summary ---
Author Organization [employer] Address [address] [facility] [address] 7t [place] [address] Care Team Providers Care Ship Laborer Name Role Phone Kay Pedersen MD Primary Care Provider [phone] Shadi Cabrera PharmD Unavailable [phone] Garrett Gilbert MD Unavailable [phone] Reason for Visit * Reason Comments Med Refill Encounter Details Date Type Department Care Team (Late st Contact Info) Description 06/30/2023 Refill [facility] [address] [place], [place] [phone] Kay Pedersen MD 230 [place], [place] [phone] Earache Social History Tobacco Use Types Packs/Day [...] Description 11/09/2024 1:00 PM EDT Telemedicine [facility] MEDICINE [address] [place] [address]896 Shadi Cabrera, PharmD [address] [place] [address] 11/26/2024 1:45 PM EDT Office Visit [facility] MEDICINE [address] [place] [address] Kay Pedersen MD [address] [place] [address] 32448 documented as of this encounter Goals Goal [...] documented as of this encounter Care Teams Ship Laborer Relationship Specialty Start Date End Date Kay Pedersen MD [address] [place] [address] 67923 PCP - General Family Medicine 09/10/22 Shadi Cabrera, PharmD [address] [place] [address] 49233 Pharmacist Internal Medicine 05/31/23 Garrett Gilbert MD [address] [place] [address] [address] [place] [address] Nephrology 06/18/24 Adryan Werner MD Dry Cleaner Presser 06/18/24 Kerry Gallo Rheumatology 06/18/24 documented as of this encounter
--- OUTSIDE RECORDS SUMMARY | 2024-10-30 14:21 | XMS_ITS | Encounter Summary ---
Author Organization [employer] Address [address] [facility] [address] 7t [place] [address] Care Team Providers Care Recreational Sports Director Name Role Phone Kay Pedersen MD Primary Care Provider [phone] Shadi Cabrera PharmD Unavailable [phone] Garrett Gilbert MD Unavailable [phone] Encounter Details Date Type Department Care Team (Latest Contact Info) Description 09/14/2024 Results Follow-Up [facility] MEDICINE 230 [place], [place] [phone] Kay Pedersen MD 230 [place], [place] [phone] Albumin, Random Urine W/Creatinine, Comprehensive Metabolic Panel, Lipid Panel with Reflex to Direct LDL, Hemoglobin A1c Social History Tobacco Use Types Packs/Day Years [...] Info) Description 11/09/2024 1:00 PM EDT Telemedicine [facility] MEDICINE [address] [place] [address] 56[address] Shadi Cabrera PharmSara [address] [place] [address] 11/26/2024 1:45 PM EDT Office Visit [facility] MEDICINE [address] [place] [address] 00[address] Kay Pedersen MD [address] [place] [address] documented as of this encounter Goals Goal [...] documented as of this encounter Care Teams Recreational Sports Director Relationship Specialty Start Date End Date Kay Pedersen MD 230 [place] [address] PCP - General Family Medicine 09/10/22 Shadi Cabrera, CatalinaD [address] [place] [address] 58050 Pharmacist Internal Medicine 05/31/23 Garrett Gilbert MD [address] [place] [address] [address] [place] [address]214 Nephrology 06/18/24 Adryan Werner MD Peripatologist 06/18/24 Kerry Gallo Rheumatology 06/18/24 documented as of this encounter
--- OUTSIDE RECORDS SUMMARY | 2024-10-30 14:21 | XMS_ITS | Encounter Summary ---
Author Organization [employer] Address [address] [facility] [address] 7t [place] [address] Care Team Providers Care Instrument Sterilizer Name Role Phone Kay Pedersen MD Primary Care Provider [phone] Shadi Cabrera PharmD Unavailable [phone] Garrett Gilbert MD Unavailable [phone] Encounter Details Date Type Department Care Team ([facility] st Contact Info) Description 09/14/2024 Orders Only [facility] MEDICINE 230 [place], [place] [phone] Kay Pedersen MD 230 [place], [place] [phone] Hypokalemia (Primary Dx) Social History Tobacco Use [...] Description 11/09/2024 1:00 PM EDT Telemedicine [facility] MEDICINE [address] [place] [address] Shadi Cabrera, PharmD [address] [place] [address] 11/26/2024 1:45 PM EDT Office Visit [facility] MEDICINE [address] [place] [address] 8[address] Kay Pedersen MD [address] [place] [address] Scheduled Orders Name Type Priority Associated Diagnoses Orde r Schedule Basic Metabolic Panel Lab Routine Hypokalemia Expected: 09/14/2024 (Approximate), Expires: 09/14/2025 documented as of this encounter Goals Goal Patient Goal Type Associated Problems Recent Progress Patient-Stated? Author Blood Pressure < 140/90 Blood Pressure 132/101(2024 2:12 PM EDT) No Shadi Cabrera, PharmD documented as of this encounter Visit Diagnoses Diagnosis Hypokalemia- Primary Hypopotassemia documented in this encounter Additional Health Concerns Assessment Noted Time PHQ-9 Depression Total Score: 5 07/28/19 25 3:55 PM EDT documented as of this encounter Care Teams Instrument Sterilizer Relationship Specialty Start Date End Date Kay Pedersen MD 230 [place] [address] PCP - General Family Medicine 09/10/22 Shadi Cabrera, CatalinaD 230 [place] [address] Pharmacist Internal Medicine 05/31/23 Garrett Gilbert MD [address] [place] [address] Drive [address] [place] [address] Nephrology 06/18/24 Adryan Werner MD Claim Adjuster 06/18/24 Kerry Gallo Rheumatology 06/18/24 documented as of this encounter
--- OUTSIDE RECORDS SUMMARY | 2024-10-30 14:21 | XMS_ITS | Encounter Summary ---
Author Organization [email or web address] [facility] Address 75 [facility] 7t [place] [address] Care Team Providers Care Design Project Manager Name Role Phone Jasmine Rodriguez TITLE I DIRECTOR Primary Care Provider Mary Kay Escobar MD Primary Care Provider [phone] Shadi Cabrera PharmD Unavailable [phone] Garrett Gilbert MD Unavailable [phone] Encounter Details Date Type Department Care Team (Late st Contact Info) Description 03/25/2022 Orders Only [facility] MEDICINE [address] [place] [address] Megan Munoz LPN Social History Tobacco Use [...] Info) Description 11/09/2024 1:00 PM EDT Telemedicine [facility] MED[facility]INE [address] [place] [address] 16[address] Shadi Cabrera, PharmD 230 [place], [place] [phone] 11/26/2024 1:45 PM EDT Office Visit [facility] MED[facility] [address] [place] [address] [phone] Kay Pedersen MD 230 [place], [place] [phone] documented as of this encounter Visit Diagnoses Not on filedocumented in this encounter Care Teams Design Project Manager Relationship Specialty Start Date End Date Jasmine Rodriguez FNP PCP - General Family Medicine 01/25/22 09/09/22 Kay Pedersen MD 230 [place] [address] PCP - General Family Medicine 09/10/22 Shadi Cabrera, CatalinaD 230 [place] [address] Pharmacist Internal Medicine 05/31/23 Garrett Gilbert MD [address] [place] [address] Drive [address] [place] [address] Nephrology 06/18/24 Adryan Werner MD Court Reporter 06/18/24 Kerry Gallo Rheumatology 06/18/24 documented as of this encounter
--- OUTSIDE RECORDS SUMMARY | 2024-10-30 14:21 | XMS_ITS | Encounter Summary ---
Author Organization [employer] [facility] Address 75 [facility] 7t [place] [address] Care Team Providers Care Middle School Baseball Coach Name Role Phone Jasmine Rodriguez CASE FINISHING MACHINE ADJUSTER Primary Care Provider Mary Kay Escobar MD Primary Care Provider [phone] Shadi Cabrera PharmD Unavailable [phone] Garrett Gilbert MD Unavailable [phone] Encounter Details Date Type Department Care Team (Late st Contact Info) Description 05/24/2022 Orders Only [facility] MED [facility]S [address] [place] [address] Iliana Geller LPN Social History Tobacco Use [...] Department Care Team (Late Contact Info) Description 11/09/2024 1:00 PM EDT Telemedicine [facility] MEDICINE [address] [place] [address] 237[address] Shadi Cabrera, PharmD 230 [place] [address] 11/26/2024 1:45 PM EDT Office Visit [facility] MEDICINE [address] [place] [address] 58[address] Kay Pedersen MD 230 [place], [place] [phone] documented as of this encounter Visit Diagnoses Not on filedocumented in this encounter Care Teams Middle School Baseball Coach Relationship Specialty Start Date End Date Jasmine Rodriguez FNP PCP - General Family Medicine 01/25/22 09/09/22 Kay Pedersen MD 230 [place] [address] PCP - General Family Medicine 09/10/22 Shadi Cabrera, CatalinaD 230 [place] [address] Pharmacist Internal Medicine 05/31/23 Garrett Gilbert MD [address] [place] [address] Drive [address] [place] [address]98 Nephrology 06/18/24 Adryan Werner MD Laundry Tub Maker 06/18/24 Kerry Gallo Rheumatology 06/18/24 documented as of this encounter
== END 2024-10-30 14:02 | disposition home or self-care (01) ==
LOC: HO.HSMS 13:26
PROVIDERS: PCP Family Medicine; Visit Provider Physician Assistant Medical
DX: G47.33 Obstructive sleep apnea (adult) (pediatric) (principal); Z99.89 Dependence on other enabling machines and devices; R25.2 Cramp and spasm; G25.81 Restless legs syndrome; K21.9 Gastro-esophageal reflux disease without esophagitis; R53.82 Chronic fatigue, unspecified
CPT/HCPCS: 99214

== ENCOUNTER → 2024-10-30 13:25 | Outpatient (BNVA) | payer MEDICAID, SELFPAY | PROVIDERS: PCP Family Medicine; Visit Provider Physician Assistant Medical | DX: G47.33 Obstructive sleep apnea (adult) (pediatric) (principal); Z99.89 Dependence on other enabling machines and devices; G25.81 Restless legs syndrome; K21.9 Gastro-esophageal reflux disease without esophagitis; R53.82 Chronic fatigue, unspecified | CPT/HCPCS: 99212 ==

== ENCOUNTER 2024-11-13 10:25 | Outpatient (REF) | payer MEDICAID, SELFPAY ==
--- OUTSIDE RECORDS SUMMARY | 2024-11-09 13:00 | XMS_ITS | Encounter Summary ---
Author Organization [facility] Address 75 [facility] 7t [place] [address] Care Team Providers Care Fleet Service Clerk Name Role Phone Kay Pedersen MD Primary Care Provider [phone] Shadi Cabrera PharmD Unavailable [phone] Garrett Gilbert MD Unavailable [phone] Reason for Visit * Consultation (Routine) - Pending Review Specialty Diagnoses / Procedures Referred By Contac t Referred To Contact Pharmacy Diagnoses Hypertension, unspecified type Moderate persistent asthma without complication Kay Pedersen MD 230 [place] [address] Phone: tel: fax: Referral ID Status Reason Start Date Expiration Date Visits Requested Visits Authorized [id number] Pending Review Consult and Treat 12/05/2023 12/04/2024 6 6 Encounter Details Date Type Department Care Team ([facility] st Contact Info) Description 11/09/2024 1:00 PM EDT Telemedicine [facility] MEDICINE 230 [place], [place] [phone] Shadi Cabrera, PharmD 230 [place], [place] [phone] Hypertension, unspecified type (Primary Dx); Moderate persistent [...] Sign Reading Time Taken Comments Blood Pressure 135/99 11/09/2024 1:19 PM EDT Omr on Home Monitor (TV) Pulse 95 11/09/2024 1:19 PM EDT Temperature - - Respiratory Rate - - Oxygen Saturation - - Inhaled Oxygen Concentration - - Weight - - Height - - Body Mass Index - - documented in this encounter Plan of Treatment Upcoming Encounters Date Type Department Care Team (Late st Contact Info) Description 11/26/2024 1:45 PM EDT Office Visit [facility] MED[facility]INE 230 [place] [address] Kay Pedersen MD 230 [place] [address] 01/11/2025 1:00 PM EST Medication Management [facility] MED[facility]INE 230 [place] [address] Shadi Cabrera, PharmD 230 [place] [address] documented as of this encounter Goals Goal Patient Goal Type Associated Problems Recent Progress Patient-Stated? Author Blood Pressure < 140/90 Blood Pressure 135/99( 025 1:19 PM EDT) No Shadi Cabrera, PharmD documented as of this encounter Visit Diagnoses Diagnosis Hypertension, unspecified type- Primary Moderate persistent asthma without complication documented in this encounter Additional Health Concerns Assessment Noted Time PHQ-9 Depression Total Score: 5 07/28/19 3:55 PM EDT documented as of this encounter Care Teams Fleet Service Clerk Relationship Specialty Start Date End Date Kay Pedersen MD [address] [place] [address]643 PCP - General Family Medicine 09/10/22 Shadi Cabrera, PharmD [address] [place] [address] 88295 Pharmacist Internal Medicine 05/31/23 Garrett Gilbert MD [address] [place] [address] Drive [address] [place] [address] Nephrology 06/18/24 Adryan Werner MD Account Assistant 06/18/24 Kerry Gallo Rheumatology 06/18/24 documented as of this encounter
--- OUTSIDE RECORDS SUMMARY | 2024-11-13 12:13 | XMS_ITS | Encounter Summary ---
Author Organization [employer] Address [address] [facility] [address] 7t [place] [address] Care Team Providers Care Seafood Technology Specialist Name Role Phone Kay Pedersen MD Primary Care Provider [phone] Shadi Cabrera PharmD Unavailable [phone] Garrett Gilbert MD Unavailable [phone] Reason for Visit * Reason Comments Med Refill Encounter Details Date Type Department Care Team (Late st Contact Info) Description 11/11/2024 Refill [facility] MEDICINE 230 [place], [place] [phone] Kay Pedersen MD 230 [place], [place] [phone] Primary hypertension Social History Tobacco Use Types Packs/Day Years [...] Description 11/26/2024 1:45 PM EDT Office Visit [facility] MEDICINE [address] [place] [address] 11469 Kay Pedersen MD [address] [place] [address] 01/11/2025 1:00 PM EST Medication Management [facility] [address] [place] [address] 33477 Shadi Cabrera PharmD [address] [place] [address] 54892 documented as of this encounter Goals Goal Patient Goal Type Associated Problems Recent Progress Patient-Stated? Author Blood Pressure < 140/90 Blood Pressure 135/99( 025 1:19 PM EDT) No Shadi Cabrera PharmD documented as of this encounter Visit Diagnoses Diagnosis Primary hypertension Unspecified essential hypertension documented in this encounter Additional Health Concerns Assessment Noted Time PHQ-9 Depression Total Score: 5 07/28/19 25 3:55 PM EDT documented as of this encounter Care Teams Seafood Technology Specialist Relationship Specialty Start Date End Date Kay Pedersen MD [address] [place] [address] PCP - General Family Medicine 09/10/22 Shadi Cabrera, Solange 230 [place] [address] Pharmacist Internal Medicine 05/31/23 Garrett Gilbert MD [address] [place] [address] Drive [address] [place] [address]558 Nephrology 06/18/24 Adryan Werner MD Slot Floorman 06/18/24 Kerry Gallo Rheumatology 06/18/24 documented as of this encounter
--- OUTSIDE RECORDS SUMMARY | 2024-11-13 12:13 | XMS_ITS | Encounter Summary ---
Author Organization [employer] Address [address] [facility] [address] 7t [place] [address] Care Team Providers Care Mri Assistant Name Role Phone Kay Pedersen MD Primary Care Provider [phone] Shadi Cabrera PharmD Unavailable [phone] Garrett Gilbert MD Unavailable [phone] Encounter Details Date Type Department Care Team ([facility] st Contact Info) Description 07/05/[address] [facility] MEDICINE 230 [place], [place] [phone] Kay Pedersen MD 230 [place], [place] [phone] Pneumonia of right middle lobe due to [...] Description 11/26/2024 1:45 PM EDT Office Visit [facility] MEDICINE [address] [place] [address] Kay Pedersen MD [address] [place] [address] 01/11/2025 1:00 PM EST Medication Management [address] [address] Shadi Cabrera, PharmD [address] [place] [address] 9[address] Scheduled Orders Name Type Priority Associated Diagnoses [...] documented as of this encounter Care Teams Mri Assistant Relationship Specialty Start Date End Date Kay Pedersen MD 230 [place] [address] PCP - General Family Medicine 09/10/22 Shadi Cabrera, CatalinaD 230 [place] [address] Pharmacist Internal Medicine 05/31/23 Garrett Gilbert MD [address] [facility] [address] [place] [address] Nephrology 06/18/24 Adryan Werner MD Piano Player 06/18/24 Kerry Gallo Rheumatology 06/18/24 documented as of this encounter
--- OUTSIDE RECORDS SUMMARY | 2024-11-13 12:13 | XMS_ITS | Encounter Summary ---
Author Organization [employer] Address [address] [facility] [address] 7t [place] [address] Care Team Providers Care Utility Locator Name Role Phone Kay Pedersen MD Primary Care Provider [phone] Shadi Cabrera PharmD Unavailable [phone] Garrett Gilbert MD Unavailable [phone] Encounter Details Date Type Department Care Team (Late st Contact Info) Description 10/27/2023 Orders Only [facility] MEDICINE 230 [place], [place] [phone] Kay Pedersen MD 230 [place], [place] [phone] Hypokalemia (Primary Dx) Social History Tobacco Use [...] Description 11/26/2024 1:45 PM EDT Office Visit [facility] MEDICINE [address] [place] [address] Kay Pedersen MD [address] [place] [address] 01/11/2025 1:00 PM EST Medication Management [facility] MEDICINE [address] [place] [address] 9[address]27 Shadi Cabrera, PharmSara [address] [place] [address] 12872 documented as of this encounter Goals Goal [...] Results * Potassium (11/15/2023 11:00 AM EDT) [facility] Signature Potassium 3.3 3.3 - 5.1 mmol/L [facility] Blood Venous blood specimen / Unknown 11/15/2023 11:00 AM EDT 11/15/2023 1:15 PM EDT Kay Pedersen MD LAB BLOOD ORDERABLES Final Resul t Performing Organization Address [facility]/ZIP Co de Phone Number [facility] [address] [place] [address] [phone] * (ABNORMAL) Basic Metabolic Panel (11/01/2023 1:26 PM EDT) Sodium 142 135 - 145 mmol/L [facility] Potassium 3.2(L) 3.3 - 5.1 mmol/L [facility] Chloride 106 96 - 108 mmol/L [facility] Carbon Dioxide 24 22 - 29 mmol/L [facility] Anion Gap 15 12 - 20 [facility] Urea Nitrogen (BUN) 10 9 - 16 mg/dL [facility] Creatinine, Serum 0.80 0.5 - 1.4 mg/dL [facility] Estimated Glomerular Filt Rate >60 [facility] Comment:NOTE: For -Am erican individuals, multiply the result by 1.210.Chronic Kidney Disease: Estimated GFR < 60 mL/min/1.04g5Uuwfev Kidney Disease: Estimated GFR < 15 mL/min/1.73m2 Glucose 164(H) 60 - 115 mg/dL [facility] Calcium 10.1 8.4 - 10.2 mg/dL [facility] Blood Venous blood specimen / Unknown 11/01/2023 1:26 PM EDT 11/01/2023 4:08 PM EDT Kay Pedersen MD LAB BLOOD ORDERABLES Final Resul t [facility] [address] [place] [address] [phone] documented in this encounter Visit Diagnoses Diagnosis Hypokalemia- Primary Hypopotassemia documented in this encounter Additional Health Concerns Assessment Noted Time PHQ-9 Depression Total Score: 8 03/14/19 24 9:41 AM EST documented as of this encounter Care Teams Utility Locator Relationship Specialty Start Date End Date Kay Pedersen MD 230 [place] [address] PCP - General Family Medicine 09/10/22 Shadi Cabrera, CatalinaD 230 [place] [address] Pharmacist Internal Medicine 05/31/23 Garrett Gilbert MD [address] [place] [address] Drive [address] [place] [address] Nephrology 06/18/24 Adryan Werner MD Picker 06/18/24 Kerry Gallo Rheumatology 06/18/24 documented as of this encounter
--- OUTSIDE RECORDS SUMMARY | 2024-11-13 12:13 | XMS_ITS | Encounter Summary ---
Author Organization [email or web address] Address [address] [facility] [address] 7t [place] [address] Care Team Providers Care Veterinarian Poultry Name Role Phone Kay Pedersen MD Primary Care Provider [phone] Shadi Cabrera PharmD Unavailable [phone] Grarett Gilbert MD Unavailable [phone] Encounter Details Date Type Department Care Team (Late st Contact Info) Description 06/07/2023 Orders Only [facility] MEDICINE 230 [place], [place] [phone] Kay Pedersen MD 230 [place], [place] [phone] Social History Tobacco Use Types Packs/Day Years [...] Description 11/26/2024 1:45 PM EDT Office Visit [facility] MEDICINE [address] [place] [address] 14702 Kay Pedersen MD [address] [place] [address] 104[address] 01/11/2025 1:00 PM EST Medication Management [address] [address] Shadi Cabrera, PharmD [address] [place] [address] 09066 documented as of this encounter Goals Goal [...] documented as of this encounter Care Teams Veterinarian Poultry Relationship Specialty Start Date End Date Kay Pedersen MD [address] [place] [address] [phone] PCP - General Family Medicine 09/10/22 Shadi Cabrera, PharmD [address] [place] [address] [phone] Pharmacist Internal Medicine 05/31/23 Garrett Gilbert MD [address] [place] [address] [address] [place] [address] 118[address] Nephrology 06/18/24 Adryan Werner MD Director Sales 06/18/24 Kerry Gallo Rheumatology 06/18/24 documented as of this encounter
--- OUTSIDE RECORDS SUMMARY | 2024-11-13 12:13 | XMS_ITS | Encounter Summary ---
Author Organization [employer] Address [address] [facility] [address] 7t [place] [address] Care Team Providers Care Environmental Sampling Technician Name Role Phone Kay Pedersen MD Primary Care Provider [phone] Shadi Cabrera PharmD Unavailable [phone] Garrett Gilbert MD Unavailable [phone] Reason for Visit * Reason Comments Med Refill Encounter Details Date Type Department Care Team (Late st Contact Info) Description 06/30/2023 Refill [facility] 230 [place], [place] [phone] Kay Pedersen MD 230 [place], [place] [phone] Earache Social History Tobacco Use Types Packs/Day [...] Description 11/26/2024 1:45 PM EDT Office Visit [facility] MEDICINE [address] [place] [address] Kay Pedersen MD [address] [place] [address] 01/11/2025 1:00 PM EST Medication Management [facility] MED[facility] [address] [place] [address] Shadi Cabrera PharmD [address] [place] [address] 95[address] documented as of this encounter Goals Goal [...] documented as of this encounter Care Teams Environmental Sampling Technician Relationship Specialty Start Date End Date Kay Pedersen MD [address] [place] [address]73 PCP - General Family Medicine 09/10/22 Shadi Cabrera, PharmD [address] [place] [address]757 Pharmacist Internal Medicine 05/31/23 Garrett Gilbert MD [address] [place] [address] [address] [place] [address] Nephrology 06/18/24 Adryan Werner MD Event Producer 06/18/24 Kerry Gallo Rheumatology 06/18/24 documented as of this encounter
--- OUTSIDE RECORDS SUMMARY | 2024-11-13 12:13 | XMS_ITS | Encounter Summary ---
Author Organization [employer] Address [address] [facility] [address] 7t [place] [address] Care Team Providers Care Engineer Intern Name Role Phone Kay Pedersen MD Primary Care Provider [phone] Shadi Cabrera PharmD Unavailable [phone] Garrett Gilbert MD Unavailable [phone] Reason for Visit * Reason Comments Med Refill Encounter Details Date Type Department Care Team (Late st Contact Info) Description 06/22/2023 Refill [facility] 230 [place], [place] [phone] Kay Pedersen MD 230 [place], [place] [phone] Earache; Moderate persistent asthma without complication Social [...] Description 11/26/2024 1:45 PM EDT Office Visit [facility] MEDICINE [address] [place] [address] Kay Pedersen MD [address] [place] [address] 01/11/2025 1:00 PM EST Medication Management [facility] MED[facility] [address] [place] [address] Shadi Cabrera PharmD [address] [place] [address] documented as of this encounter Goals Goal [...] documented as of this encounter Care Teams Engineer Intern Relationship Specialty Start Date End Date Kay Pedersen MD [address] [place] [address]181 PCP - General Family Medicine 09/10/22 Shadi Cabrera, PharmD 230 [place] [address] Pharmacist Internal Medicine 05/31/23 Garrett Gilbert MD [address] [place] [address] Drive [address] [place] [address] Nephrology 06/18/24 Adryan Werner MD Outreach Director 06/18/24 Kerry Gallo Rheumatology 06/18/24 documented as of this encounter
--- OUTSIDE RECORDS SUMMARY | 2024-11-13 12:13 | XMS_ITS | Encounter Summary ---
Author Organization [employer] Address [address] [facility] [address] [place] [address] Care Team Providers Care Cost Analyst Name Role Phone Kay Pedersen MD Primary Care Provider [phone] Shadi Cabrera PharmD Unavailable [phone] Garrett Gilbert MD Unavailable [phone] Encounter Details Date Type Department Care Team ([facility] st Contact Info) Description 10/08/2024 Orders Only [facility] MEDICINE [address] [place], [place] [phone] Kay Pedersen MD [address] [place], [place] [phone] Social History Tobacco Use Types Packs/Day Years [...] Description 11/26/2024 1:45 PM EDT Office Visit [facility] MEDICINE [address] [place] [phone] Kay Pedersen MD [address] [place] [phone] 01/11/2025 1:00 PM EST Medication Management [facility] MEDICINE [address] [place] [phone] Shadi Cabrera PharmD [address] [place] [phone] documented as of this encounter Goals Goal [...] documented as of this encounter Care Teams Cost Analyst Relationship Specialty Start Date End Date Kay Pedersen MD [address] [place] [phone] PCP - General Family Medicine 09/10/22 Shadi Cabrera, Solange [address] [place] [phone] Pharmacist Internal Medicine 05/31/23 Garrett Gilbert MD [address] [place] [address] [address] [place] [phone] Nephrology 06/18/24 Adryan Werner MD Air Cargo Agent 06/18/24 Kerry Gallo Rheumatology 06/18/24 documented as of this encounter
--- OUTSIDE RECORDS SUMMARY | 2024-11-13 12:13 | XMS_ITS | Encounter Summary ---
Author Organization [facility] Address [address] [facility] [address] [place] [address] Care Team Providers Care Chrome Polisher Name Role Phone Kay Pedersen MD Primary Care Provider [phone] Shadi Cabrera PharmD Unavailable [phone] Garrett Gilbert MD Unavailable Reason for Referral * Consultation (Routine) - Pending Review Specialty Diagnoses / Procedures Referred By Contbelkys t Referred To Contact Pharmacy Diagnoses Hypertension, unspecified type Moderate persistent asthma without complication Kay Pedersen MD [address] [place] [address] Phone: tel: fax: Referral ID Status Reason Start Date Expiration Date Visits Requested Visits Authorized [id number] Pending Review Consult and Treat 12/05/2023 12/04/2024 6 6 Encounter Details Date Type Department Care Team (Late st Contact Info) Description 12/05/2023 Orders Only [facility] MEDICINE [address] [place], [place] [phone] Kay Pedersen MD [address] [place], [place] [phone] Hypertension, unspecified type (Primary Dx); Moderate persistent [...] Description 11/26/2024 1:45 PM EDT Office Visit [facility] MEDICINE [address] [place] [phone] Kay Pedersen MD [address] [place] [phone] 01/11/2025 1:00 PM EST Medication Management [facility] MEDICINE [address] [place] [phone] Shadi Carbera, CatalinaD [address] [place] [phone] Scheduled Referrals Name Type Priority Associated Diagnoses [...] documented as of this encounter Care Teams Chrome Polisher Relationship Specialty Start Date End Date Kay Pedersen MD [address] [place] [address] PCP - General Family Medicine 09/10/22 Shadi Cabrera, PharmD [address] [place] [address] Pharmacist Internal Medicine 05/31/23 Garrett Gilbert MD [address] [place] [address] Nephrology 06/18/24 Adryan Werner MD After School Program Director 06/18/24 Kerry Gallo Rheumatology 06/18/24 documented as of this encounter
--- OUTSIDE RECORDS SUMMARY | 2024-11-13 12:13 | XMS_ITS | Clinical Summary ---
Author Organization [employer] Address [address] [facility] [address] [place] [address] Care Team Providers Care Partition Assembler Name Role Phone Kay Pedersen MD Primary Care Provider [phone] Shadi Cabrera PharmD Unavailable [phone] Garrett Gilbert MD Unavailable [phone] Allergies Active Allergy Reactions Criticality Noted [...] mouth in the morning. 90 tablet 1 01/11/20 23 Active Blood Pressure Monitor kit Check blood pressure once daily and as needed 1 kit 02/01/20 23 Active Symbicort 160-4.5 MCG/ACT inhaler INHALE 2 PUFFS BY MOUTH TWICE DAILY. RINSE MOUTH AFTER USING. 11/03/19 23 Active omeprazole (PriLOSEC) [address] capsule TAKE 2 CAPSULES BY MOUTH ONCE DAILY IN THE MORNING 01/06/20 23 Active omega-3 (Fish Oil) 1000 MG capsule Take 1,000 mg by mouth in the morning. Purchases OTC Active leflunomide (Arava) 10 MG tablet Take 10 mg by mouth Once per day. Active hydrOXYzine HCl (Atarax) 25 MG tablet TAKE 1 TABLET BY MOUTH EVERY TWELVE HOURS NEEDED FOR ANXIETY 60 tablet 1 05/15/19 25 Active Alcohol Swabs (Alcohol Prep) pads Use when checking blood sugar 100 each 11 06/11/19 25 Active FreeStyle lancets 1 each by Other route Once per day. 100 each 06/11/19 25 Active FREESTYLE LITE test strip Check blood glucose 100 each 06/11/19 25 Active Blood Glucose Monitoring Suppl (FreeStyle Lite) w/Device kit 1 Device Once per day. 1 kit 06/12/19 25 Active Dupixent 300 MG/2ML solution auto-injector 08/03/19 Active losartan (Cozaar) 100 MG tablet Take 1 tablet (100 mg) by mouth Once per day. 30 tablet 08/11/19 25 Active montelukast (Singulair) 10 MG tabletIndicatio ns:Moderate persistent asthma without complication TAKE 1 TABLET BY MOUTH AT BEDTIME 90 tablet 1 08/23/19 25 Active albuterol (2.5 MG/3ML) 0.083% nebulizer solution Take 3 mL (2.5 mg) by nebulization every 4 (four) hours if needed for wheezing or shortness of breath. 90 mL 1 09/11/19 25 Active metFORMIN, OSM, (Fortamet) 500 MG 24 hr tablet Take 1 tablet (500 mg) by mouth with breakfast and with evening meal. Do not crush, chew, or split. 180 tablet 3 09/15/19 25 2025 Active fluticasone (Flonase) 50 MCG/ACT nasal spray Administer 1-2 sprays into each nostril Once per day. Shake gently. Before first use, prime pump. After use, clean tip and replace cap. 16 g 2 09/15/19 25 2025 Active sertraline (Zoloft) 50 MG tablet Take 50 mg by mouth in the morning. 09/21/19 25 Active Tirzepatide (Mounjaro) 2.5 MG/0.5ML solution auto-injector Inject 2.5 mg under the skin 1 (one) time per week. 2 mL 10/09/19 25 Active metoprolol succinate XL (Toprol XL) 25 MG 24 hr tabletIndicatio ns:Hypertension , unspecified type Take 1 tablet (25 mg) by mouth Once per day. Do not crush or chew. 30 tablet 10/09/19 25 2025 Active atorvastatin (Lipitor) 80 MG tabletIndicatio ns:Type 2 diabetes mellitus without complication, without long-term current use of insulin (CMS/HCC) Take 1 tablet (80 mg) by mouth Once per day. In the morning 30 tablet 11 10/09/19 25 Active amLODIPine (Norvasc) 10 MG tabletIndicatio ns:Primary hypertension TAKE 1 TABLET BY MOUTH EVERY MORNING 90 tablet 3 11/13/19 25 Active potassium chloride CR (Klor-Con M20) 20 MEQ ER tablet TAKE 1 TABLET BY MOUTH ONCE DAILY 30 tablet 1 11/13/19 25 Active amLODIPine (Norvasc) 10 MG tabletIndicatio ns:Primary hypertension Take 1 tablet (10 mg) by mouth Once per day. 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 - Patient developed allergic reaction in June 2024, and the offending agent was suspected as dupilumab. 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 Chronic upper back pain 10/12/2022 Assessment & Plan (01/31/2023 5:58 AM EST): - following with [facility] nurse - continue duloxetine, cyclobenzaprine Assessment & Plan (10/14/2022 10:27 AM EDT): - following with [facility] nurse - continue duloxetine, cyclobenzaprine Acid reflux 10/12/2022 [...] Interested in Acupuncture, so given info on [facility] Acupuncture clinics. She has also been scheduled with [facility] prescriber to transfer care. Meanwhile, continue [...] (09/10/2024 12:55 PM EDT): - following with [facility] Rheumatology, last seen on 03/04/24 - previously taking methotrexate - currently taking leflunomide - patient did not take leflunomide from 09/03/23 to 11/01/23 due to sepsis and cellulitis - continue current treatment plan Assessment & Plan (06/06/2024 11:02 AM EDT): - following with [facility] Rheumatology, last seen on 03/04/24 - previously taking methotrexate - currently taking leflunomide - patient did not take leflunomide from 09/03/23 to 11/01/23 due to sepsis and cellulitis - continue current treatment plan Assessment & Plan (03/10/2024 6:33 PM EST): - following with [facility] Rheumatology, last seen on 03/04/24 - previously taking methotrexate - currently taking leflunomide - patient did not take leflunomide from 09/03/23 to 11/01/23 due to sepsis and cellulitis - continue current treatment plan Assessment & Plan (11/25/2023 4:46 PM EDT): - following with [facility] Rheumatology, last seen on 11/01/23 - previously taking methotrexate - currently taking leflunomide - patient did not take leflunomide from 09/03/23 to 11/01/23 due to sepsis and cellulitis - continue current treatment plan Assessment & Plan (05/01/2023 11:33 AM EST): - following with [facility] Rhuematology - previously taking methotrexate - currently taking leflunomide - continue current treatment plan Assessment & Plan (01/31/2023 5:59 AM EST): [facility] - currently taking leflunomide - continue current treatment plan Assessment & Plan (10/14/2022 10:30 AM EDT): [facility] - currently taking [...] 3 to 4 months - following with [facility] pulmonology, last seen in June 2024 - [...] with prednisone. No antibiotic. - following with [facility] pulmonology, last seen in Mar 2024 - [...] with prednisone. No antibiotic. - [facility] in Jan [facility] - PFT [...] short course of prednisone - [facility] - Continue budesonide / formoterol (Symbicort) as maintenance - Continue albuterol as rescue - Continue montelukast Assessment & Plan (04/25/2023 3:28 PM EST): - following with [facility] pulmonology - Continue budesonide / formoterol (Symbicort) as maintenance - Continue albuterol as rescue - Continue montelukast Assessment & Plan (01/31/2023 5:56 AM EST): - following with [facility] pulmonology - Continue Symbicort as maintenance - Continue albuterol as rescue - Continue montelukast Assessment & Plan (10/14/2022 9:40 AM EDT): - following with [facility] pulmonology - Continue Symbicort as maintenance - [...] Encounters Date Type Department Care Team Description 11/11/2024 Refill [facility] MEDICINE [address] [place] [phone] Kay Pedersen MD Primary hypertension 11/09/2024 1:00 PM EDT Telemedicine [address] [address] Shadi Cabrera, Solange Hypertension, unspecified type (Primary Dx); Moderate persistent asthma without complication 11/07/2024 Patient Outreach [address] [address] Kay Pedersen MD Care Coordination (SDOH) 11/06/2024 Patient Outreach [address] [address] Kay Pedersen MD Care Management (C3CM- f/u call. Not available.) 10/25/2024 Patient Outreach [address] [address] Kay Pedersen MD Care Management (C3CM- f/u call) 10/24/2024 Patient Outreach [address] [address] Kay Pedersen MD Care Coordination (Appt reminder) 10/11/2024 Patient Outreach [address] [address] Kay Pedersen MD Care Management (C3CM- f/u call) 10/11/[address] [address] Kay Pedersen MD Durable Medical Equipment (PA: Darci) 10/10/2024 Patient Outreach [address] [address] Kay Pedersen MD Care Coordination (Appt reminder) 10/08/2024 1:30 PM EDT Telemedicine [address] [address] Shadi Cabrera, CatalinaD Hypertension, unspecified type (Primary Dx); Moderate persistent asthma without complication; Type 2 diabetes mellitus without complication, without long-term current use of insulin ([facility]) 10/08/2024 Orders Only [address] [address] Kay Pedersen MD 10/03/2024 Orders Only GENERIC EXTERNAL DATA DEPARTMENT Provider, Generic External Data 10/01/2024 Patient Outreach [address] [address] Kay Pedersen MD Care Coordination (Appt reminder) 09/26/2024 Patient Outreach [address] [address] Kay Pedersen MD Care Coordination ([facility] f/u) 09/26/2024 Patient Outreach [address] [address] Kay Pedersen MD Care Management ([facility]- f/u call) 09/20/[address] [address] Kay Pedersen MD Care Management (C3- f/u call/ results) 09/14/2024 Orders Only [address] [address] Kay Pedersen MD Type 2 diabetes mellitus with other specified complication, without long-term current use of insulin (CMS/[facility]) (Primary Dx) 09/14/2024 Orders Only [address] [address] Kay Pedersen MD Hypokalemia (Primary Dx) 09/14/2024 Results Follow-Up [address] [address] Kay Pedersen MD Albumin, Random Urine W/Creatinine, Comprehensive Metabolic Panel, Lipid Panel with Reflex to Direct LDL, Hemoglobin A1c 09/12/[address] [address] Marifer Pearson CNM chart prep 09/10/2024 1:45 PM EDT Office Visit [address] [address] Kay Pedersen MD Hypertension, unspecified type (Primary Dx); Mixed hyperlipidemia; Prediabetes; Metabolic dysfunction-associated steatotic liver disease (MASLD); Seropositive rheumatoid arthritis (CMS/HCC); Fibromyalgia; Long-term use of immunosuppressant medication; Moderate persistent asthma without complication; Obstructive sleep apnea syndrome; Anxiety and depression; Environmental allergies; Allergic rhinitis, unspecified seasonality, unspecified trigger; Osteopenia, unspecified location; Class 2 severe obesity due to excess calories with serious comorbidity and body mass index (BMI) of 39.0 to 39.9 in adult ([facility]); Hypokalemia 09/10/2024 Travel 09/06/[address] [address] Kay Pedersen MD chart prep 09/05/2024 Patient Outreach [address] [address] Kay Pedersen MD Care Management (C3CM- f/u call) 08/22/2024 Patient Outreach [address] [address] Kay Pedersen MD 08/22/[address] [address] Kay Pedersen MD Moderate persistent asthma without complication; Mixed hyperlipidemia 08/21/2024 Patient Outreach [address] [address] Kay Pedersen MD Care Management (C3CM- f/u call) 08/16/[address] [address] Marifer Pearson CNM 08/14/2024 Orders Only [address] [address] Kay Pedersen MD 08/13/2024 Patient Outreach [address] [address] Kay Pedersen MD Care Coordination (Appt reminder) from Last 3 Months Immunizations Immunization Administration [...] Blood Pressure 135/99 11/09/2024 1:19 PM EDT [employer] Monitor (TV) Pulse 95 11/09/2024 1:19 PM EDT Temperature 36.5 C (97.7 F) [...] Description 11/26/2024 1:45 PM EDT Office Visit [facility] MEDICINE [address] [place] [phone] Kay Pedersen MD [address] [place] [phone] 01/11/2025 1:00 PM EST Medication Management [facility] MEDICINE [address] [place] [phone] Shadi Cabrera, PharmD [address] [place] [address] Health Maintenance Due Date Last Done Comments CT Colonography 1975 FIT DNA/Cologuard 1975 FIT 1975 FOBT 1975 Sigmoidoscopy 1975 Diabetes: Foot Exam 06/28/1985 Family Planning (PISQ) 06/28/1990 Hepatitis A Vaccines (2 of 2 - Risk 2-dose series) 09/09/2024 03/12/2024 COVID-19 Vaccine ( season) 2024 04/12/2022, 01/26/2021, 01/05/2021 Influenza Vaccine (#1) 2024 , 01/31/2023, 01/02/2021, [...] 1:19 PM EDT) No Shadi Cabrera PharmD Procedures Procedure Name Priority Date/Time Associated [...] EDT) Vitamin D, 25-OH, D2 <4 ng/mL [facility] Comment:This test was develo ped and its analytical performancecharacteristics have been determined by [employer] [place], [place]. It hasnot been cleared or approved by the U.S. Food and DrugAdministration. This assay has been validated pursuantto the CLIA regulations and is used for clinicalpurposes.THIS TEST WAS PERFORMED AT:[employer] [id number] [place] [phone] EDMONDS MD,PHD Vitamin D, 25-OH, D3 37 ng/mL [facility] Comment:This test was develo ped and its analytical performancecharacteristics have been determined by [employer], [place]. It hasnot been cleared or approved by the U.S. Food and DrugAdministration. This assay has been validated pursuantto the CLIA regulations and is used for clinicalpurposes. Vitamin D, 25-OH, Total 37 30 - 100 ng/mL [facility] Comment:Vitamin D, 25-Hydrox y reports concentrations [...] = 30 ng/mL.For additional information, please refer tohttp://education.[employer]O Sportstoys/faq/AFT164(This link is being provided for informational/educational purposes only.) 10/03/2024 9:13 AM EDT 10/03/2024 11:23 AM EDT us Generic External Data Provider LAB BLOOD ORDERAB LES Final Result Performing Organization Address [facility]/ZIP Co de Phone Number [facility] [address] [place] [phone] * T-SPOT??.TB (10/03/2024 9:13 AM EDT) T Spot TB Negative Negative [facility] Comment:A negative test resu lt does [...] as aquantitative test. TS PANEL A 0 [facility] TS PANEL B 0 [facility] Negative Control Passed [facility] Positive Control Passed [facility] Comment:For additional infor scottie, please refer tohttp://education.Karmarama/faq/TJQ109(This link is being provided for informational/educational purposes only.)THIS TEST WAS PERFORMED AT:[employer] [id number] [place] [address]ONPDBLSTITO EDMONDS MD,PHD 10/03/2024 9:13 AM EDT 10/03/2024 11:18 AM EDT Generic External Data Provider LAB BLOOD ORDERAB LES Final Result Performing Organization Address [facility]/ZIP Co de Phone Number [facility] [address] [place] [address] [phone] * Hepatitis Panel, General (10/03/2024 9:13 AM EDT) [facility] Hepatitis A IgM Nonreactive Nonreactive [facility] Comment:IgM antibodies to MCDANIEL V not detected; does not exclude earlyacute or recovered HAV infection. ~Hepatitis B Surface Antibody NONREACTIVE Nonreactive [facility] Comment:Nonreactive: < 8.00 mIU/mL Hepatitis B Core Antibody Nonreactive Nonreactive [facility] Hepatitis C Antibody Nonreactive Nonreactive [facility] Comment:Antibodies to HCV no t detected; does not exclude early acuteHCV infection. Hepatitis B Surface Ag Negative Negative [facility] 10/03/2024 9:13 AM EDT 10/03/2024 11:23 AM EDT us Generic External Data Provider LAB BLOOD ORDERAB LES Final Result [facility] [address] [place] [phone] * (ABNORMAL) CBC auto differential (10/03/2024 9:13 AM EDT) [facility] White Blood Count 8.1 4.8 - 10.8 X10*3/uL [facility] Red Blood Count 5.61(H) 4.20 - 5.50 X10*6/uL [facility] Hemoglobin 15.3 12.0 - 16.0 g/dl [facility] Hematocrit 47.3(H) 37.0 - 47.0 % [facility] Mean Corpuscular Volume 84.3 80.0 - 98.0 fL [facility] Mean Corpuscular Hemoglobin 27.3 27.0 - 33.0 pg [facility] Mean Corpuscular HGB Conc 32.3 31.0 - 35.0 g/dl [facility] Red Cell Distribution Width 13.2 11.0 - 16.0 % [facility] Platelet Count 264 160 - 400 X10*3/uL [facility] Mean Platelet Volume 11.9 9.4 - 12.3 fL [facility] Neutrophils Percent Auto 38.3(L) 45 - 73 % [facility] Imm Gran Pct Auto 0.2 0.0 - 0.4 % [facility] Lymphocytes Percent Auto 45.9(H) 20 - 40 % [facility] Monocytes Percent Auto 6.2 2 - 11 % [facility] Eosinophils Percent Auto 8.4(H) 0 - 4 % [facility] Basophils Percent Auto 1.0 0 - 2 % [facility] NRBC Pct Auto 0.0 0.0 - 0.2 /100WBC [facility] Neutrophils Absolute Auto 3.1 2.0 - 8.3 x10*3/uL [facility] Imm Gran Abs Auto 0.02 0.00 - 0.03 X10*3/uL [facility] Lymphocytes Absolute Auto 3.7 1.2 - 4.9 X10*3/uL [facility] Monocytes Absolute Auto 0.5 0.1 - 1.2 X10*3/uL [facility] Eosinophils Absolute Auto 0.7(H) 0.0 - 0.4 X10*3/uL [facility] Basophils Absolute Auto 0.1 0.0 - 0.2 X10*3/uL [facility] NRBC Abs Auto 0.000 0.0 - 0.012 X10*3/uL [facility] 10/03/2024 9:13 AM EDT 10/03/2024 11:18 AM EDT us Generic External Data Provider LAB BLOOD ORDERAB LES Final Result [facility] [address] [place] [address] [phone] * Sed Rate by Modified Rigo (10/03/2024 9:13 AM EDT) Erythrocyte Sedimentation Rate 6 0 - 20 MM/HR [facility] Comment:Patients with polycy themia and many hemoglobin abnormalitiesmay have depressed sed rates whereas patients with anemiamay have elevated sed rates. 10/03/2024 9:13 AM EDT 10/03/2024 11:18 AM EDT Generic External Data Provider LAB BLOOD ORDERAB LES Final Result Performing Organization Address [facility]/ZIP Co de Phone Number [facility] [address] [place] [phone] * C-reactive Protein (10/03/2024 9:13 AM EDT) C Reactive Protein 0.44 < or = 0.50 mg/dL [facility] 10/03/2024 9:13 AM EDT 10/03/2024 11:23 AM EDT Generic External Data Provider LAB BLOOD ORDERAB LES Final Result Performing Organization Address [facility] de Phone Number [facility] [address] [place] [address] [phone] * (ABNORMAL) Comprehensive Metabolic Panel (10/03/2024 9:13 AM EDT) Only the most recent of2 resultswithin the time period is included. Pathologist [facility] Sodium 141 135 - 145 mmol/L [facility] Potassium 3.2(L) 3.3 - 5.1 mmol/L [facility] Chloride 107 96 - 108 mmol/L [facility] Carbon Dioxide 23 22 - 29 mmol/L [facility] Anion Gap 14 12 - 20 [facility] Urea Nitrogen (BUN) 9 9 - 16 mg/dL [facility] Creatinine, Serum 0.84 0.5 - 1.4 mg/dL [facility] Estimated Glomerular Filt Rate >60 [facility] Comment:Chronic Kidney Disea se: Estimated GFR < 60 mL/min/1.86m0Kjyefq Kidney Disease: Estimated GFR < 15 mL/min/1.73m2 Glucose 125(H) 60 - 115 mg/dL [facility] Calcium 9.4 8.4 - 10.2 mg/dL [facility] Bilirubin, Total 0.3 0.0 - 1.0 mg/dL [facility] Aspartate Amino Transferase 37(H) 5 - 31 U/L [facility] Alanine Aminotransferase 39(H) 0 - 31 U/L [facility] Total Protein 7.0 6.5 - 8.0 g/dL [facility] Albumin Level 4.5 3.5 - 5.0 g/dL [facility] Alkaline Phosphatase 126(H) 39 - 117 U/L [facility] 10/03/2024 9:13 AM EDT 10/03/2024 11:23 AM EDT us Generic External Data Provider LAB BLOOD ORDERAB LES Final Result [facility] [address] [place] [phone] * (ABNORMAL) Lipid Panel with Reflex to Direct LDL (09/10/2024 2:04 PM EDT) Triglycerides 273(H) <150 mg/dL [facility] Comment:Desirable Triglyceri de: less than 150 mg/dLBorderline High Triglyceride 150-199 mg/dLHigh Triglyceride: 200-499 mg/dLVery High Triglyceride: greater than or equal to 5OO mg/dL Cholesterol 226(H) <200 mg/dL [facility] Comment:Desirable Cholestero l: less than 200 mg/dLBorderline High Cholesterol: 200-239 mg/dLHigh Cholesterol: greater than 239 mg/dL LDL Cholesterol Calculated 121(H) <100 mg/dL [facility] Comment:Desirable LDL: less than 100 mg/dLNear Optimal/Above Optimal LDL: 110- 129 mg/dLBorderline High LDL: 130-159 mg/dLHigh LDL: 160-189 mg/dLVery High LDL: greater than or equal to 190 mg/dL HDL Cholesterol 51 >40 mg/dL [facility] Comment:Desirable HDL: great er than 40 mg/dL Note: This HDL assay may give artificially low results in patients with liver disease. Blood 09/10/2024 2:04 PM EDT 09/10/2024 5:08 PM EDT Kay Pedersen MD LAB BLOOD ORDERABLES Final Resul t Performing Organization Address [facility] de Phone Number [facility] [address] [place] [phone] * Albumin, Random Urine W/Creatinine (09/10/2024 2:04 PM EDT) Creatinine, Urine 53.30 mg/dL [facility] Microalbumin Urine 12.0 mg/L [facility] Microalbum Creatinine Ratio Ur 22.5 <30 ug/mg cr [facility] Comment:Albumin/Creatinine R atio Reference Ranges: Normal: < 30 ug/mg creatinine Microalbuminuria: 30 - 300 ug/mg creatinineClinical Albuminuria: > 300 ug/mg creatinine Urine 09/10/2024 2:04 PM EDT 09/10/2024 4:12 PM EDT Kay Pedersen MD LAB URINE ORDERABLES Final Resul t Performing Organization Address [facility] Number [facility] [address] [place] [phone] * (ABNORMAL) Hemoglobin A1c (09/10/2024 2:04 PM EDT) Hemoglobin A1c 6.9(H) <6.0 % [facility] Comment:Hemoglobin A1C Refer ence Range Adults: 4.8 - 6.0 % Non diabetic: < 6.0 % Goal: < 7.0 %Additional Action Suggested: > 8.0 %Note: Hemoglobin A1c results are invalid for patients with abnormal amounts of HbF. Blood transfusions may impact the HbA1c concentration in the patient sample. Estimated Average Glucose 151 mg/dL [facility] Comment:eAG = Estimated ave rage glucose which is %A1C expressed asaverage glucose, using the formula of the [id number] Glucose study (ADAG), Diabetes Care, Vol.31,#8,Oct. 2007 Blood Venous blood specimen / Unknown 09/10/2024 2:04 PM EDT 09/10/2024 5:08 PM EDT us Kay Pedersen MD LAB BLOOD ORDERABLES Final Resul t [facility] [address] [place] [phone] * BI Mammogram Screening Tomosynthesis Bilateral (08/14/2024 12:45 PM EDT) Anatomical Region Laterality Modality Breast Bilateral Mammography 08/14/2024 12:4 5 PM EDT Narrative 08/21/2024 5:53 PM EDT [address] [place] [address] Mammography Report Signed Patient: Mariluz Pisano MR#: [id number] : 1975 Acct:[id number] Age/Sex: 49 / F ADM Date: 08/14/24 Loc: [facility] Attending Dr: Kay Pedersen MD Ordering Physician: Kay Pedersen MD Results: 1Negative Date of Service: 08/14/24 Follow Up: 1 Year From [facility] Mammogram Procedure(s): MM tomosynthesis screening BI Accession Number(s): [id number] cc: Kay Pedersen MD EXAMINATION: MM SCREENING [...] 08/21/24 1751 DD/ 1245 TD/TT: 08/14/24 1255 Oil Well Fishing Tool Technician: Procedure Note Donotuseinterpreter, Image - 08/21/2024 [facility] [address] [place], [place] [address] Mammography Report Signed Patient: Debo Pisano#: M [id number] : 1975Acct:[id number] Age/Sex: 49 / FADM Date: 08/14/24 Loc: [facility] Attending Dr: Kay Pedersen MD Ordering Physician: Kay Pedersen MDResults: 1Negative Date of Service: 08/14/24Follow Up: 1 Year From Orig inal Mammogram Procedure(s): MM tomosynthesis screening BI Accession Number(s): [id number] cc: Kay Pedersen MD EXAMINATION: MM SCREENING [...] Bonny Naqvi DO 08/21/2024 05:51 PM EDT Dictated By: Bonny Naqvi DO Signed By: <Electronically signed by Bonny Naqvi DO in OV> 08/21/24 1751 DD/ 1245 TD/TT: 08/14/24 1255 Oil Well Fishing Tool Technician: us Kay Pedersen MD IMG BI PROCEDURES [...] of detection of this assay. The [employer] Decision Analyst HIV Ag/Ab Combo assay result and supplemental assay results should be interpreted in conjunction with the patient's clinical presentation, history and other laboratory results. If the results are inconsistent with clinical evidence, additional testing is suggested to confirm the result. 04/18/2019 11:0 4 AM EST Tanner Reyes MD HISTORICAL/NON ORDERABLE LAB S Final Result [facility] [address] [place] [address], from Last 3 Months or Most Recently Relevant to Health Maintenance Insurance [facility] C3 Care Teams Partition Assembler Relationship Specialty Start Date End Date Kay Pedersen MD [address] [place] [address] PCP - General Family Medicine 09/10/22 Shadi Cabrera, PharmD [address] [place] [address] Pharmacist Internal Medicine 05/31/23 Garrett Gilbert MD [address] [place] [address] [address] [place] [address] Nephrology 06/18/24 Adryan Werner MD Chief Nursing Executive 06/18/24 Kerry Gallo Rheumatology 06/18/24
--- OUTSIDE RECORDS SUMMARY | 2024-11-13 12:13 | XMS_ITS | Encounter Summary ---
Author Organization [facility] Address [address] [facility] 7t [place] [address] Care Team Providers Care Editor Index Name Role Phone Kay Pedersen MD Primary Care Provider [phone] Shadi Cabrera PharmD Unavailable [phone] Garrett Gilbert MD Unavailable [phone] Reason for Referral * Consultation (Routine) - Closed Specialty Diagnoses / Procedures Referred By Contac t Referred To Contact Optometry Diagnoses Type 2 diabetes mellitus with other specified complication, without long-term current use of insulin (CMS/HCC) Kay Pedersen MD [address] [place] [address] Phone: tel: fax: [facility] OPTOMETRY [address] [place] [address] Phone: tel: fax: Referral ID Status Reason Start Date Expiration Date V isits Requested Visits Authorized [id number] Closed Consult and Treat 09/14/2024 09/14/2025 1 1 Encounter Details Date Type Department Care Team (Late st Contact Info) Description 09/14/2024 Orders Only [facility] MEDICINE [address] [place], [place] [phone] Kay Pedersen MD [address] [place], [place] [phone] Type 2 diabetes mellitus with other specified [...] 1:45 PM EDT Office Visit [facility] MEDICINE [address] [place] [address] Kay Pedersen MD [address] [place] [address] 01/11/2025 1:00 PM EST Medication Management [facility] MEDICINE [address] [place] [address] Shadi Cabrera, PharmSara [address] [place] [address] Scheduled Referrals Name Type Priority Associated Diagnoses Orde r Schedule Referral to [facility] Eye Care Outpatient Referral Routine Type 2 diabetes mellitus with other specified complication, without long-term current use of insulin (CMS/[facility]) Expected: 09/14/2024 (Approximate), Expires: 09/14/2025 documented as of this encounter Goals Goal Patient Goal Type Associated Problems Recent Progress Patient-Stated? Author Blood Pressure < 140/90 Blood Pressure 135/99( 025 1:19 PM EDT) No Shadi Cabrera, Solange documented as of this encounter Visit Diagnoses Diagnosis Type 2 diabetes mellitus with other specified complication, without long-term current use of insulin (CMS/[facility])- Primary documented in this encounter Additional Health Concerns Assessment Noted Time PHQ-9 Depression Total Score: 5 07/28/19 25 3:55 PM EDT documented as of this encounter Care Teams Editor Index Relationship Specialty Start Date End Date Kay Pedersen MD [address] [place] [address] PCP - General Family Medicine 09/10/22 Shadi Cabrera, PharmD [address] [place] [address] Pharmacist Internal Medicine 05/31/[address] MD [address] [place] [address] Nephrology 06/18/24 Adryan Werner MD Property Assessment Monitor 06/18/24 Kerry Gallo Rheumatology 06/18/24 documented as of this encounter
--- OUTSIDE RECORDS SUMMARY | 2024-11-13 12:14 | XMS_ITS | Encounter Summary ---
Author Organization [facility] Address [address] [facility] 7t [place] [address] Care Team Providers Care Radial Saw Operator Name Role Phone Jasmine Rodriguez SIX SIGMA PROJECT MANAGER Primary Care Provider Mary Kay Escobar MD Primary Care Provider Shadi Cabrera PharmD Unavailable [phone] Garrett Gilbert MD Unavailable [phone] Encounter Details Date Type Department Care Team (Late st Contact Info) Description 05/24/2022 Orders Only [facility] MED & PEDS [address] [place] [address] Iliana Geller LPN Social History Tobacco Use [...] Department Care Team (Late Contact Info) Description 11/26/2024 1:45 PM EDT Office Visit [facility] MEDICINE [address] [place] [address] Kay Pedersen MD [address] [place] [address] [phone] 01/11/2025 1:00 PM EST Medication Management [facility] MEDICINE [address] [place] [address] Shadi Cabrera, PharmD [address] [place], [place] [phone] documented as of this encounter Visit Diagnoses Not on filedocumented in this encounter Care Teams Radial Saw Operator Relationship Specialty Start Date End Date Jasmine Rodriguez FNP PCP - General Family Medicine 01/25/22 09/09/22 Kay Pedersen MD [address] [place] [address] PCP - General Family Medicine 09/10/22 Shadi Cabrera, CatalinaD [address] [place] [address] Pharmacist Internal Medicine 05/31/23 Garrett Gilbert MD [address] [place] [address] Drive [address] [place] [address] Nephrology 06/18/24 Adryan Werner MD Resident Medical Officer 06/18/24 Kerry Gallo Rheumatology 06/18/24 documented as of this encounter
--- OUTSIDE RECORDS SUMMARY | 2024-11-13 12:14 | XMS_ITS | Encounter Summary ---
Author Organization [facility] Address [address] [facility] 7t [place] [address] Care Team Providers Care Solution Architect Name Role Phone Jasmine Rodriguez ELEVATOR WORKER Primary Care Provider Mary Kay Escobar MD Primary Care Provider [phone] Shadi Cabrera PharmD Unavailable [phone] Garrett Gilbert MD Unavailable Encounter Details Date Type Department Care Team (Late st Contact Info) Description 03/25/2022 Orders Only [facility] MEDICINE [address] [place] [address] [phone] Megan Munoz LPN Social History Tobacco Use [...] Description 11/26/2024 1:45 PM EDT Office Visit [facility] MEDICINE [address] [place] [address] Kay Pedersen MD [address] [place] [address] [phone] 01/11/2025 1:00 PM EST Medication Management [facility] MEDICINE [address] [place] [address] [phone] Shadi Cabrera, PharmD [address] [place], [place] [phone] documented as of this encounter Visit Diagnoses Not on filedocumented in this encounter Care Teams Solution Architect Relationship Specialty Start Date End Date Jasmine Rodriguez FNP PCP - General Family Medicine 01/25/22 09/09/22 Kay Pedersen MD [address] [place] [address] PCP - General Family Medicine 09/10/22 Shadi Cabrera, CatalinaD [address] [place] [address] Pharmacist Internal Medicine 05/31/23 Garrett Gilbert MD [address] [place] [address] Drive [address] [place] [address] Nephrology 06/18/24 Adryan Werner MD Quantitative Strategy Analyst 06/18/24 Kerry Gallo Rheumatology 06/18/24 documented as of this encounter
--- OUTSIDE RECORDS SUMMARY | 2024-11-13 12:14 | XMS_ITS | Encounter Summary ---
Author Organization [employer] Address [address] [facility] [address] 7[address] [place] [address] Care Team Providers Care Business Systems Consultant Name Role Phone Kay Pedersen MD Primary Care Provider [phone] Shadi Cabrera PharmD Unavailable [phone] Garrett Gilbert MD Unavailable [phone] Encounter Details Date Type Department Care Team (Latest Contact Info) Description 09/14/2024 Results Follow-Up [facility] MEDICINE [address] [place], [place] [phone] Kay Pedersen MD [address] [place], [place] [phone] Albumin, Random Urine W/Creatinine, Comprehensive Metabolic Panel, [...] Description 11/26/2024 1:45 PM EDT Office Visit [facility] MEDICINE [address] [place] [phone] Kay Pedersen MD [address] [place] [address] 01/11/2025 1:00 PM EST Medication Management [facility] MEDICINE [address] [place] [address] Shadi Cabrera PharmD [address] [place] [address] documented as of this encounter Goals Goal [...] documented as of this encounter Care Teams Business Systems Consultant Relationship Specialty Start Date End Date Kay Pedersen MD [address] [place] [address] PCP - General Family Medicine 09/10/22 Shadi Cabrera, CatalinaD [address] [place] [address] Pharmacist Internal Medicine 05/31/23 Garrett Gilbert MD [address] [place] [address] [address] [place] [address] Nephrology 06/18/24 Adryan Werner MD Pediatric Licensed Practical Nurse 06/18/24 Kerry Gallo Rheumatology 06/18/24 documented as of this encounter
--- OUTSIDE RECORDS SUMMARY | 2024-11-13 12:14 | XMS_ITS | Encounter Summary ---
Author Organization [employer] Address [address] [facility] [address] 7t [place] [address] Care Team Providers Care Bootmaker Name Role Phone Kay Pedersen MD Primary Care Provider [phone] Shadi Cabrera PharmD Unavailable [phone] Garrett Gilbert MD Unavailable Encounter Details Date Type Department Care Team ([facility] st Contact Info) Description 09/14/2024 Orders Only [facility] MEDICINE [address] [place], [place] [phone] Kay Pedersen MD [address] [place], [place] [phone] Hypokalemia (Primary Dx) Social History Tobacco Use [...] Description 11/26/2024 1:45 PM EDT Office Visit [facility] MEDICINE [address] [place] [address] Kay Pdeersen MD [address] [place] [address] 01/11/2025 1:00 PM EST Medication Management [address] [address] Shadi Cabrera, CatalinaD [address] [place] [address] Scheduled Orders Name Type Priority Associated Diagnoses [...] documented as of this encounter Care Teams Bootmaker Relationship Specialty Start Date End Date Kay Pedersen MD [address] [place] [address] PCP - General Family Medicine 09/10/22 Shadi Cabrera, CatalinaD [address] [place] [address] Pharmacist Internal Medicine 05/31/23 Garrett Gilbert MD [address] [place] [address] Drive [address] [place] [address] Nephrology 06/18/24 Adryan Werner MD Supervisor Pressing Department 06/18/24 Kerry Gallo Rheumatology 06/18/24 documented as of this encounter
[2024-11-13 13:09] LABS: MANUAL DIFF FLAG NO
[2024-11-13 13:18] LABS: Hematocrit 47.9 % (37.0-47.0); Hemoglobin 15.5 g/dl (12.0-16.0); Imm Gran Abs Auto 0.03 X10*3/uL (0.00-0.03); Imm Gran Pct Auto 0.4 % (0.0-0.4); Lymphocytes Absolute Auto 2.5 X10*3/uL (1.2-4.9); Mean Corpuscular HGB Conc 32.4 g/dl (31.0-35.0); Mean Corpuscular Hemoglobin 26.9 pg (27.0-33.0); Mean Corpuscular Volume 83.2 fL (80.0-98.0); NRBC Abs Auto 0.000 X10*3/uL (0.0-0.012); NRBC Pct Auto 0.0 /100WBC (0.0-0.2); Platelet Count 273 X10*3/uL (160-400); Red Blood Count 5.76 X10*6/uL (4.20-5.50); White Blood Count 8.3 X10*3/uL (4.8-10.8)
[2024-11-13 13:27] LABS: Appearance Urine Cloudy; Glucose Urine UA Negative (Negative); PH 6.0 (5.0-9.0); Specific Gravity - Urine 1.025 (1.005-1.025)
[2024-11-13 13:46] LABS: Alanine Aminotransferase 21 U/L (0-31); Albumin Level 4.6 g/dL (3.5-5.0); Alkaline Phosphatase 105 U/L (39-117); Anion Gap 16 (12-20); Aspartate Amino Transferase 23 U/L (5-31); Blood Urea Nitrogen 8 mg/dL (9-16); Calcium 9.3 mg/dL (8.4-10.2); Carbon Dioxide 27 mmol/L (22-29); Chloride 107 mmol/L (96-108); Estimated Glomerular Filt Rate > 60; Potassium 3.2 mmol/L (3.3-5.1); Sodium 147 mmol/L (135-145); Total Protein 7.1 g/dL (6.5-8.0)
[2024-11-13 13:48] LABS: Anion Gap 14 (12-20); Blood Urea Nitrogen 8 mg/dL (9-16); Calcium 9.5 mg/dL (8.4-10.2); Carbon Dioxide 29 mmol/L (22-29); Chloride 107 mmol/L (96-108); Estimated Glomerular Filt Rate > 60; Potassium 3.0 mmol/L (3.3-5.1); Sodium 147 mmol/L (135-145)
[2024-11-13 13:51] LABS: Alanine Aminotransferase 23 U/L (0-31); Albumin Level 4.6 g/dL (3.5-5.0); Alkaline Phosphatase 107 U/L (39-117); Anion Gap 16 (12-20); Aspartate Amino Transferase 25 U/L (5-31); Blood Urea Nitrogen 7 mg/dL (9-16); Calcium 9.5 mg/dL (8.4-10.2); Carbon Dioxide 28 mmol/L (22-29); Chloride 106 mmol/L (96-108); Cholesterol 144 mg/dL (<200); Estimated Glomerular Filt Rate > 60; HDL Cholesterol 39 mg/dL (>40); Potassium 3.1 mmol/L (3.3-5.1); Sodium 147 mmol/L (135-145); Total Protein 7.1 g/dL (6.5-8.0); Triglycerides 151 mg/dL (<150)
[2024-11-13 14:09] LABS: Folate 8.3 ng/mL (> or = 4.0); Vitamin B12 277 pg/mL (200-900)
== END 2024-11-13 10:26 | disposition home or self-care (01) ==
LOC: HO.10HDL 10:25
PROVIDERS: Physician Assistant Medical; Student in an Organized Health Care Education/Training Program; Visit Provider Internal Medicine Hypertension Specialist
DX: N17.9 Acute kidney failure, unspecified (principal); Z79.60 Long term (current) use of unspecified immunomodulators and immunosuppressants; G47.33 Obstructive sleep apnea (adult) (pediatric); Z99.89 Dependence on other enabling machines and devices; R53.82 Chronic fatigue, unspecified; I10 Essential (primary) hypertension; E11.9 Type 2 diabetes mellitus without complications
CPT/HCPCS: 36415; 80048; 80053; 80061; 80076; 81003; 82248; 82607; 82746; 84207; 84425; 84443; 85025; 85652; 86140

== ENCOUNTER 2024-11-13 10:50 | Outpatient (REF) | payer MEDICAID, SELFPAY | END 2024-11-13 10:51 | disposition home or self-care (01) | LOC: HO.HHCL 10:50 | PROVIDERS: PCP Family Medicine; Referring Provider Family Medicine; Visit Provider Physician Assistant Medical | DX: Z13.89 Encounter for screening for other disorder (principal) ==

== ENCOUNTER 2024-11-27 12:48 | Outpatient (AMB) | payer MEDICAID, SELFPAY ==
--- NOTE | 2024-11-27 13:19 | HO.NEPHOV_ITS ---
Vital Signs 11/27/24 13:20 Height 4 ft 11 in Weight 173 lb BMI 34.9 BP 94/70 Blood Pressure Location Lt brachial Position Sitting Pulse 98 Pulse Source Pulse Oximeter Pulse Oximetry (%) 93 Oxygen Delivery Method Room Air Intake Visit Reasons: ELISA-Conf Government Relations Manager Required: Yes Government Relations Manager Name: jae [phone] Accompanied by: Self / Same As Patient Allergies penicillin G (PENICILLIN G) Allergy (Severe, Verified 11/27/24 13:20) DIZZINESS tramadol Allergy (Severe, Verified 11/27/24 13:20) Vomiting and sweats PFSH Medical History Diabetes mellitus Encounter for screening for osteoporosis Irritable bowel Esophagitis Early satiety Thoracic degenerative disc disease Back pain Asthma Fibromyalgia Sleep apnea Seropositive rheumatoid arthritis Arthritis Diarrhea Surgical History History of esophagogastroduodenoscopy (EGD) History of laparoscopic cholecystectomy Hx of tubal ligation History of partial hysterectomy Hx of endoscopy History of colonoscopy Family History Father No problems noted. Mother History of high blood pressure Social History Household Members: None Housing: Apartment Do you presently have visiting nurse or other home services: No Alcohol intake: current Alcohol intake frequency: holidays/special occasions only Alcohol type: beer and wine Patient Tobacco Use Status: Former Tobacco user Tobacco use type: Cigarette e-Cigarette/Vaping Use: Never Used Substance Use Type: Marijuana Advance Directives Date on File: 09/12/23 service: No Current occupational status: disabled Physical Exam Vital Signs: Last Vital Signs Pulse 98 11/27/24 13:20 BP 94/70 11/27/24 13:20 Pulse Ox 93 11/27/24 13:20 Oxygen Delivery Method Room Air 11/27/24 13:20 BMI result Body Mass Index 34.9 Results Reviewed Nephrology Results: Hgb, (12.0-16.0) 15.5 g/dl 11/13/24 WBC, (4.8-10.8) 8.3 X10*3/uL 11/13/24 Plt Count, (160-400) 273 X10*3/uL 11/13/24 Sodium, (135-145) 147 mmol/L H 11/13/24 Potassium, (3.3-5.1) 3.1 mmol/L L 11/13/24 Chloride, (96-108) 106 mmol/L 11/13/24 Carbon Dioxide, (22-29) 28 mmol/L 11/13/24 BUN, (9-16) 7 mg/dL L 11/13/24 Creatinine, (0.5-1.4) 0.71 mg/dL 11/13/24 Calcium, (8.4-10.2) 9.5 mg/dL 11/13/24 Urine Protein, (Neg-Trace) Trace mg/dL 11/13/24 Urine Creatinine 53.30 mg/dL 09/10/24 Renal US 09/09/23 Assessment & Plan Assessment & Plan (1) Hypokalemia: Code(s): E87.6 - Hypokalemia Category: Medical Plan History of Present Illness - The patient is a 49-year-old female presenting with follow-up for acute kidney injury (ELISA). - Hypertension managed with losartan. - Hypokalemia managed with increased potassium supplementation. - Blood pressure low, amlodipine discontinued. Physical Exam General: Awake. Comfortable. HENT: Neck supple. Mucosa moist. Pulmonary: Lungs aeration equal. No rales. Cardiology: Heart S1-S2 heard. No gallop. Abdomen: Soft. Non tender. Bowel sounds normal. Neurologic: No involuntary movements. No myoclonus. Extremities: No edema. No rash. Plan 1. Acute Kidney Injury (Elisa) Resolved - Monitor kidney function and potassium levels. - Follow-up appointment scheduled for . 2. Hypertension - Discontinue amlodipine due to low blood pressure. - Continue monitoring blood pressure. 3. Hypokalemia - Continue potassium supplementation at two pills per day. - Re-evaluate potassium levels with blood test today. Patient Instructions - Bring all medications to the next appointment on . - Go for blood test today to check potassium levels. - Monitor blood pressure at home and report any significant changes. Orders: Orders Basic Metabolic Panel Today E87.6 - Hypokalemia Medications: Discontinued amlodipine Discontinued Reason: Doctor's Order 5 mg See Protocol PO DAILY 90 tabs 0RF Coding Level of Care Code Est Pt Level 3 (72625) Diagnoses Hypokalemia E87.6
[2024-11-27 13:20] VITALS: BP 94/70; PULSE 98; O2SAT 93; BMI 34.9
--- OUTSIDE RECORDS SUMMARY | 2024-11-27 15:40 | XMS_ITS | Encounter Summary ---
Author Organization [employer] Address [address] [facility] [address] 7t [place] [address] Care Team Providers Care Senior Validation Engineer Name Role Phone Kay Pedersen MD Primary Care Provider [phone] Shadi Cabrera PharmD Unavailable [phone] Garrett Gilbert MD Unavailable [phone] Encounter Details Date Type Department Care Team (Late st Contact Info) Description 10/27/2023 Orders Only [facility] MEDICINE [address] [place], [place] [phone] Kay Pedersen MD [address] [place], [place] [phone] Hypokalemia (Primary Dx) Social History Tobacco Use [...] Care Team (Late st Contact Info) Description 01/11/2025 1:00 PM EST Medication Management [address] [address] Shadi Carbera, PharmD [address] [place] [address] 01/21/2025 3:45 PM EST Office Visit [address] [address] Kay Pedersen MD [address] [place] [address] documented as of this encounter Goals Goal [...] EDT) Potassium 3.3 3.3 - 5.1 mmol/L [facility] Blood Venous blood specimen / Unknown 11/15/2023 11:00 AM EDT 11/15/2023 1:15 PM EDT Kay Pedersen MD LAB BLOOD ORDERABLES Final Resul t Performing Organization Address [facility]/ZIP Co de Phone Number [facility] [address] [place] [address] [phone] * (ABNORMAL) Basic Metabolic Panel (11/01/2023 1:26 PM EDT) Sodium 142 135 - 145 mmol/L [facility] Potassium 3.2(L) 3.3 - 5.1 mmol/L [facility] Chloride 106 96 - 108 mmol/L [facility] Carbon Dioxide 24 22 - 29 mmol/L [facility] Anion Gap 15 12 - 20 [facility] Urea Nitrogen (BUN) 10 9 - 16 mg/dL [facility] Creatinine, Serum 0.80 0.5 - 1.4 mg/dL [facility] Estimated Glomerular Filt Rate >60 [facility] Comment:NOTE: For -Am erican individuals, multiply the result by 1.210.Chronic Kidney Disease: Estimated GFR < 60 mL/min/1.71r8Csvpoc Kidney Disease: Estimated GFR < 15 mL/min/1.73m2 Glucose 164(H) 60 - 115 mg/dL [facility] Calcium 10.1 8.4 - 10.2 mg/dL [facility] Blood Venous blood specimen / Unknown 11/01/2023 1:26 PM EDT 11/01/2023 4:08 PM EDT Kay Pedersen MD LAB BLOOD ORDERABLES Final Resul t [facility] [address] [place] [address] [phone] documented in this encounter Visit Diagnoses Diagnosis Hypokalemia- Primary Hypopotassemia documented in this encounter Additional Health Concerns Assessment Noted Time PHQ-9 Depression Total Score: 8 03/14/19 24 9:41 AM EST documented as of this encounter Care Teams Senior Validation Engineer Relationship Specialty Start Date End Date Kay Pedersen MD [address] [place] [address] PCP - General Family Medicine 09/10/22 Shadi Cabrera, CatalinaD [address] [place] [address] Pharmacist Internal Medicine 05/31/23 Garrett Gilbert MD [address] [place] [address] Drive [address] [place] [address] Nephrology 06/18/24 Adryan Werner MD Engineering Manager 06/18/24 Kerry Gallo Rheumatology 06/18/24 documented as of this encounter
--- OUTSIDE RECORDS SUMMARY | 2024-11-27 15:40 | XMS_ITS | Encounter Summary ---
Author Organization [employer] Address [address] [facility] [address] 7t [place] [address] Care Team Providers Care Laborer Filter Plant Name Role Phone Kay Pedersen MD Primary Care Provider [phone] Shadi Cabrera PharmD Unavailable [phone] Garrett Gilbert MD Unavailable [phone] Reason for Visit * Reason Comments Med Refill Encounter Details Date Type Department Care Team (Late st Contact Info) Description 06/22/2023 Refill [facility] [address] [place], [place] [phone] Kay Pedersen MD [address] [place], [place] [phone] Earache; Moderate persistent asthma without complication Social [...] Description 01/11/2025 1:00 PM EST Medication Management [address] [address] Shadi Cabrera PharmD [address] [place] [address] 01/21/2025 3:45 PM EST Office Visit [address] [address] Kay Pedersen MD [address] [place] [address] documented as of this encounter Goals Goal [...] documented as of this encounter Care Teams Laborer Filter Plant Relationship Specialty Start Date End Date Kay Pedersen MD [address] [place] [address] PCP - General Family Medicine 09/10/22 Shadi Cabrera PharmD [address] [place] [address] Pharmacist Internal Medicine 05/31/23 Garrett Gilbert MD [address] [place] [address] [address] [place] [address] Nephrology 06/18/24 Adryan Werner MD Binder Operator 06/18/24 Kerry Gallo Rheumatology 06/18/24 documented as of this encounter
--- OUTSIDE RECORDS SUMMARY | 2024-11-27 15:40 | XMS_ITS | Encounter Summary ---
Author Organization [employer] Address [address] 7t [place] [address] Care Team Providers Care Inspector Watch Train Name Role Phone Kay Pedersen MD Primary Care Provider [phone] Shadi Cabrera PharmD Unavailable [phone] Garrett Gilbert MD Unavailable [phone] Encounter Details Date Type Department Care Team (Late st Contact Info) Description 06/07/2023 Orders Only [facility] MEDICINE [address] [place], [place] [phone] Kay Pedersen MD [address] [place], [place] [phone] Social History Tobacco Use Types Packs/Day Years [...] Description 01/11/2025 1:00 PM EST Medication Management [address] [address] Shadi Cabrera PharmD [address] [place] [address] 01/21/2025 3:45 PM EST Office Visit [address] [address] Kay Pedersen MD [address] [place] [address] documented as of this encounter Goals Goal [...] documented as of this encounter Care Teams Inspector Watch Train Relationship Specialty Start Date End Date Kay Pedersen MD [address] [place] [address] PCP - General Family Medicine 09/10/22 Shadi Cabrera PharmD [address] [place] [address] [phone] Pharmacist Internal Medicine 05/31/23 Garrett Gilbert MD [address] [place] [address] [address] [place] [address] Nephrology 06/18/24 Adryan Werner MD Broadcast Traffic Coordinator 06/18/24 Kerry Gallo Rheumatology 06/18/24 documented as of this encounter
--- OUTSIDE RECORDS SUMMARY | 2024-11-27 15:40 | XMS_ITS | Encounter Summary ---
Author Organization [employer] Address [address] [facility] [address] [address] 7t [place] [address] Care Team Providers Care Torch Operator Name Role Phone Kay Pedersen MD Primary Care Provider [phone] Shadi Cabrera PharmD Unavailable [phone] Garrett Gilbert MD Unavailable [phone] Reason for Visit * Reason Comments Med Refill Encounter Details Date Type Department Care Team (Late st Contact Info) Description 06/30/2023 Refill [facility] [address] [place], [place] [phone] Kay Pedersen MD [address] [place], [place] [phone] Earache Social History Tobacco Use Types Packs/Day [...] Description 01/11/2025 1:00 PM EST Medication Management [address] [address] Shadi Cabrera PharmD [address] [place] [address] 01/21/2025 3:45 PM EST Office Visit [address] [address] Kay Pedersen MD [address] [place] [address] documented as of this encounter Goals Goal [...] documented as of this encounter Care Teams Torch Operator Relationship Specialty Start Date End Date Kay Pedersen MD [address] [place] [address] PCP - General Family Medicine 09/10/22 Shadi Cabrera, CatalinaD [address] [place] [address] Pharmacist Internal Medicine 05/31/23 Garrett Gilbert MD [address] [place] [address] Drive [address] [place] [address] Nephrology 06/18/24 Adryan Werner MD Meter Calibrator 06/18/24 Kerry Gallo Rheumatology 06/18/24 documented as of this encounter
--- OUTSIDE RECORDS SUMMARY | 2024-11-27 15:40 | XMS_ITS | Encounter Summary ---
Author Organization [employer] Address [address] [place] [address] Care Team Providers Care Test Administrator Name Role Phone Kay Pedersen MD Primary Care Provider [phone] Shadi Cabrera PharmD Unavailable [phone] Garrett Gilbert MD Unavailable [phone] Encounter Details Date Type Department Care Team ([facility] st Contact Info) Description 07/05/2024 Orders Only [facility] [address] [place], [place] [phone] Kay Pedersen MD [address] [place], [place] [phone] Pneumonia of right middle lobe due to [...] Description 01/11/2025 1:00 PM EST Medication Management [address] [address] Shadi Cabrera, PharmD [address] [place] [address] 01/21/2025 3:45 PM EST Office Visit [address] [address] Kay Pedersen MD [address] [place] [address] Scheduled Orders Name Type Priority Associated Diagnoses [...] documented as of this encounter Care Teams Test Administrator Relationship Specialty Start Date End Date Kay Pedersen MD [address] [place] [address] PCP - General Family Medicine 09/10/22 Shadi Cabrera, Solange [address] [place] [address] Pharmacist Internal Medicine 05/31/23 Garrett Gilbert MD [address] [place] [address] Nephrology 06/18/24 Adryan Werner MD Dairy Science Teacher 06/18/24 Kerry Gallo Rheumatology 06/18/24 documented as of this encounter
--- OUTSIDE RECORDS SUMMARY | 2024-11-27 15:40 | XMS_ITS | Encounter Summary ---
Author Organization [employer] Address [address] 7[address] [place] [address] Care Team Providers Care Astrophysics Teacher Name Role Phone Kay Pedersen MD Primary Care Provider [phone] Shadi Cabrera PharmD Unavailable [phone] Garrett Gilbert MD Unavailable [phone] Encounter Details Date Type Department Care Team ([facility] Contact Info) Description 11/13/2024 Results Follow-Up [facility] MEDICINE 230 [place], [place] [phone] Kay Pedersen MD [address] [place], [place] [phone] Basic Metabolic Panel Social History Tobacco Use Types Packs/Day Years [...] Description 01/11/2025 1:00 PM EST Medication Management [address] [address] Shadi Cabrera, PharmD [address] [place] [address] 01/21/2025 3:45 PM EST Office Visit [address] [address] Kay Pedersen MD [address] [place] [address] documented as of this encounter Goals Goal [...] documented as of this encounter Care Teams Astrophysics Teacher Relationship Specialty Start Date End Date Kay Pedersen MD [address] [place] [phone] PCP - General Family Medicine 09/10/22 Shadi Cabrera, CatalinaD [address] [place] [address] Pharmacist Internal Medicine 05/31/23 Garrett Gilbert MD [address] [place] [address] [address] [place] [address] Nephrology 06/18/24 Adryan Werner MD Diamond Cleaner 06/18/24 Kerry Gallo Rheumatology 06/18/24 documented as of this encounter
--- OUTSIDE RECORDS SUMMARY | 2024-11-27 15:40 | XMS_ITS | Encounter Summary ---
Author Organization [employer] Address [address] [place] [address] Care Team Providers Care Crystal Cutter Name Role Phone Kay Pedersen MD Primary Care Provider [phone] Shadi Cabrera PharmD Unavailable [phone] Garrett Gilbert MD Unavailable [phone] Encounter Details Date Type Department Care Team ([facility] st Contact Info) Description 11/23/[address] [facility] [address] [place], [place] [phone] Dot Pena [place] Social History Tobacco Use Types Packs/Day Years [...] encounter Miscellaneous Notes * Telephone Encounter - Dot Pena [place] - 11/23/2024 2:28 PM EDT Chart Prep Labs: done Images: ordered 08/14/24 Referrals: not applicable Vaccines due: Covid, Flu, and Hep A Screenings: foot exam Overdue care gaps: Not applicable documented in this encounter Plan of Treatment Upcoming Encounters Date Type Department Care Team (Late st Contact Info) Description 01/11/2025 1:00 PM EST Medication Management [facility] MEDICINE [address] [place] [phone] Shadi Cabrera PharmD [address] [place] [address] 01/21/2025 3:45 PM EST Office Visit [facility] MED[facility]INE [address] [place] [address] Kay Pedersen MD 230 [place] [address] documented as of this encounter Goals Goal [...] documented as of this encounter Care Teams Crystal Cutter Relationship Specialty Start Date End Date Kay Pedersen MD [address] [place] [address] PCP - General Family Medicine 09/10/22 Shadi Cabrera, CatalinaD [address] [place] [address] Pharmacist Internal Medicine 05/31/23 Garrett Gilbert MD [address] [place] [address] [address] [place] [address] Nephrology 06/18/24 Adryan Werner MD [employer] Superintendent 06/18/24 Kerry Gallo Rheumatology 06/18/24 documented as of this encounter
--- OUTSIDE RECORDS SUMMARY | 2024-11-27 15:40 | XMS_ITS | Encounter Summary ---
Author Organization [employer] [facility] Address [address] [facility] 7t [place] [address] Care Team Providers Care Trade Promotion Analyst Name Role Phone Kay Pedersen MD Primary Care Provider [phone] Shadi Cabrera PharmD Unavailable [phone] Garrett Gilbert MD Unavailable [phone] Reason for Referral * Consultation (Routine) - Closed Specialty Diagnoses / Procedures Referred By Contac t Referred To Contact Pharmacy Diagnoses Hypertension, unspecified type Moderate persistent asthma without complication Kay Pedersen MD [address] [place] [address] Phone: tel: fax: Referral ID Status Reason Start Date Expiration Date V isits Requested Visits Authorized [id number] Closed Consult and Treat 12/05/2023 12/04/2024 6 6 Encounter Details Date Type Department Care Team (Late st Contact Info) Description 12/05/2023 Orders Only [facility] 230 [place], [place] [phone] Kay Pedersen MD [address] [place], [place] [phone] Hypertension, unspecified type (Primary Dx); Moderate persistent [...] Description 01/11/2025 1:00 PM EST Medication Management [facility] [address] [place] [phone] Shadi Cabrera, CatalinaD [address] [place] [address] 01/21/2025 3:45 PM EST Office Visit [facility] [address] [place] [phone] Kay Pedersen MD [address] [place] [phone] Scheduled Referrals Name Type Priority Associated Diagnoses [...] documented as of this encounter Care Teams Trade Promotion Analyst Relationship Specialty Start Date End Date Kay Pedersen MD [address] [place] [address] PCP - General Family Medicine 09/10/22 Shadi Cabrera, PharmD [address] [place] [phone] Pharmacist Internal Medicine 05/31/23 Garrett Gilbert MD [address] [place] [address] Drive [address] [place] [address] Nephrology 06/18/24 Adryan Werner MD Stoner Hand 06/18/24 Kerry Gallo Rheumatology 06/18/24 documented as of this encounter
--- OUTSIDE RECORDS SUMMARY | 2024-11-27 15:40 | XMS_ITS | Clinical Summary ---
Author Organization [employer] Address [address] [facility] [address] [place] [address] Care Team Providers Care Tar Worker Name Role Phone Kay Pedersen MD Primary Care Provider [phone] Shadi Cabrera PharmD Unavailable [phone] Garrett Gilbert MD Unavailable [phone] Allergies Active Allergy Reactions Criticality Noted [...] FOR ANXIETY 60 tablet 1 025 Active Alcohol Swabs (Alcohol Prep) pads Use when checking blood sugar 100 each 11 025 Active FreeStyle lancets 1 each by Other [...] 30 tablet Active montelukast (Singulair) 10 MG tabletIndicatio ns:Moderate persistent asthma without complication TAKE 1 TABLET BY MOUTH AT BEDTIME 90 tablet 1 Active albuterol (2.5 MG/3ML) 0.083% nebulizer solution Take 3 mL (2.5 mg) by nebulization every 4 (four) hours if needed for wheezing or shortness of breath. 90 mL 1 Active metFORMIN, OSM, (Fortamet) 500 MG 24 hr tablet Take 1 tablet (500 mg) by mouth with breakfast and with evening meal. Do not crush, chew, or split. 180 tablet 3 025 2025 Active fluticasone (Flonase) 50 MCG/ACT nasal spray Administer 1-2 sprays into each nostril Once per day. Shake gently. Before first use, prime pump. After use, clean tip and replace cap. 16 g 2 025 2025 Active sertraline (Zoloft) 100 MG tablet Take 100 mg by mouth in the morning. Active Tirzepatide (Mounjaro) 2.5 MG/0.5ML solution auto-injector Inject 2.5 mg under the skin 1 (one) time per week. 2 mL Active atorvastatin (Lipitor) 80 MG tabletIndicatio ns:Type 2 diabetes mellitus without complication, without long-term current use of insulin (CMS/HCC) Take 1 tablet (80 mg) by mouth Once per day. In the morning 30 tablet Active amLODIPine (Norvasc) 10 MG tabletIndicatio ns:Primary hypertension TAKE 1 TABLET BY MOUTH EVERY MORNING 90 tablet 3 025 Active potassium chloride CR (Klor-Con M20) 20 MEQ ER tablet TAKE 1 TABLET BY MOUTH ONCE DAILY 30 tablet 1 Active metoprolol succinate XL (Toprol XL) 50 MG 24 hr tabletIndicatio ns:Hypertension , unspecified type Take 1 tablet (50 mg) by mouth Once per day. Do not crush or chew. 30 tablet 11 025 2025 Active amLODIPine (Norvasc) 10 MG tabletIndicatio ns:Primary hypertension Take 1 tablet (10 mg) by mouth Once per day. 90 tablet 3 024 2024 Discontinued potassium chloride CR (Klor-Con M20) 20 MEQ ER tablet TAKE 1 TABLET BY MOUTH ONCE DAILY DIRECTED 30 tablet 1 025 2024 Discontinued metoprolol succinate XL (Toprol XL) 25 MG 24 hr tabletIndicatio ns:Hypertension , unspecified type Take 1 tablet (25 mg) by mouth Once per day. Do not crush or chew. 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 She has also been scheduled with [facility] prescriber to transfer care. Meanwhile, continue Abilify [...] (09/10/2024 12:55 PM EDT): - following with [facility] [place] [facility], last seen on 03/04/24 - previously taking methotrexate - currently taking leflunomide - patient did not take leflunomide from 09/03/23 to 11/01/23 due to sepsis and cellulitis - continue current treatment plan Assessment & Plan (06/06/2024 11:02 AM EDT): - following with [facility] [place] [facility], last seen on 03/04/24 - previously taking methotrexate - currently taking leflunomide - patient did not take leflunomide from 09/03/23 to 11/01/23 due to sepsis and cellulitis - continue current treatment plan Assessment & Plan (03/10/2024 6:33 PM EST): - following with [facility] [place], last seen on 03/04/24 - previously taking methotrexate - currently taking leflunomide - patient did not take leflunomide from 09/03/23 to 11/01/23 due to sepsis and cellulitis - continue current treatment plan Assessment & Plan (11/25/2023 4:46 PM EDT): - following with [facility] [place], last seen on 11/01/23 - previously taking methotrexate - currently taking leflunomide - patient did not take leflunomide from 09/03/23 to 11/01/23 due to sepsis and cellulitis - continue current treatment plan Assessment & Plan (05/01/2023 11:33 AM EST): - following with [facility] [place] - previously taking methotrexate - currently taking leflunomide - continue current treatment plan Assessment & Plan (01/31/2023 5:59 AM EST): [facility] - currently taking leflunomide - continue current treatment plan Assessment & Plan (10/14/2022 10:30 AM EDT): [facility] - currently taking [...] 3 to 4 months - following with [facility] pulmonology, last seen in June 2024 - [...] with prednisone. No antibiotic. - following with [facility] pulmonology, last seen in Mar 2024 [...] with prednisone. No antibiotic. - following with [facility] pulmonology, last seen in Jan 2023 [...] short course of prednisone - following with [facility] pulmonology - Continue budesonide / formoterol (Symbicort) as maintenance - Continue albuterol as rescue - Continue montelukast Assessment & Plan (04/25/2023 3:28 PM EST): - following with [facility] pulmonology - Continue budesonide / formoterol (Symbicort) as maintenance - Continue albuterol as rescue - Continue montelukast Assessment & Plan (01/31/2023 5:56 AM EST): - following with [facility] pulmonology - Continue Symbicort as maintenance - Continue albuterol as rescue - Continue montelukast Assessment & Plan (10/14/2022 9:40 AM EDT): - following with [facility] pulmonology - Continue Symbicort as maintenance [...] Encounters Date Type Department Care Team Description 11/23/2024 Telephone [facility] [address] Dot Pena MA 11/20/[address] [address] Kay Pedersen MD 11/13/[address] [address] Cheyenne Underwood RN Results 11/13/2024 Results Follow-Up [address] [address] Kay Pedersen MD Basic Metabolic Panel 11/13/2024 Orders Only [address] [address] Kay Pedersen MD 11/11/[address] [address] Kay Pedersen MD Primary hypertension 11/09/2024 1:00 PM EDT Telemedicine [address] [address] Shadi Cabrera, Solange Hypertension, unspecified type (Primary Dx); Moderate persistent asthma without complication 11/07/2024 Patient Outreach [address] [address] Kay Pedersen MD Care Coordination (SDOH) 11/06/2024 Patient Outreach [address] [address] Kay Pedersen MD Care Management (C3CM- f/u call. Not available.) 10/25/2024 Patient Outreach [address] [address] Kay Pedersen MD Care Management (C3CM- f/u call) 10/24/2024 Patient Outreach [address] [address] Kay Pedersen MD Care Coordination (Appt reminder) 10/11/2024 Patient Outreach [address] [address] Kay Pedersen MD Care Management (C3CM- f/u call) 10/11/[address] [address] Kay Pedersen MD Durable Medical Equipment (PA: Darci) 10/10/2024 Patient Outreach [address] [address] Kay Pedersen MD Care Coordination (Appt reminder) 10/08/2024 1:30 PM EDT Telemedicine [address] [address] Shadi Cabrera, Solange Hypertension, unspecified type (Primary Dx); Moderate persistent asthma without complication; Type 2 diabetes mellitus without complication, without long-term current use of insulin (CMS/HCC) 10/08/2024 Orders Only [address] [address] Kay Pedersen MD 10/03/2024 Orders Only GENERIC EXTERNAL DATA DEPARTMENT Provider, Generic External Data 10/01/2024 Patient Outreach [address] [address] Kay Pedersen MD Care Coordination (Appt reminder) 09/26/2024 Patient Outreach [address] [address] Kay Pedersen MD Care Coordination (SDIA f/u) 09/26/2024 Patient Outreach [address] [address] Kay Pedersen MD Care Management (C3CM- f/u call) 09/20/[address] [address] Kay Pedersen MD Care Management (C3CM- f/u call/ results) 09/14/2024 Orders Only [address] [address] Kay Pedersen MD Type 2 diabetes mellitus with other specified complication, without long-term current use of insulin (CMS/HCC) (Primary Dx) 09/14/2024 Orders Only [address] [address] Kay Pedersen MD Hypokalemia (Primary Dx) 09/14/2024 Results Follow-Up [address] [address] Kay Pedersen MD Albumin, Random Urine W/Creatinine, Comprehensive Metabolic Panel, Lipid Panel with Reflex to Direct LDL, Hemoglobin A1c 09/12/[address] [address] Marifer Pearson CN chart prep 09/10/2024 1:45 PM EDT Office Visit [address] [id number] Kay Pedersen MD Hypertension, unspecified type (Primary Dx); Mixed hyperlipidemia; Prediabetes; Metabolic dysfunction-associated steatotic liver disease (MASLD); Seropositive rheumatoid arthritis ([facility]); Fibromyalgia; Long-term use of immunosuppressant medication; Moderate persistent asthma without complication; Obstructive sleep apnea syndrome; Anxiety and depression; Environmental allergies; Allergic rhinitis, unspecified seasonality, unspecified trigger; Osteopenia, unspecified location; Class 2 severe obesity due to excess calories with serious comorbidity and body mass index (BMI) of 39.0 to 39.9 in adult ([facility]); Hypokalemia 09/10/2024 Travel 09/06/[address] [address] Kay Pedersen MD chart prep 09/05/2024 Patient Outreach [address] [address] Kay Pedersen MD Care Management (C3CM- f/u call) from Last 3 Months Immunizations Immunization Administration [...] Description 01/11/2025 1:00 PM EST Medication Management [facility] [address] [place] [phone] Shadi Cabrera, PharmD [address] [place] [address] 01/21/2025 3:45 PM EST Office Visit [facility] [address] [place] [address] Kay Pedersen MD [address] [place] [address] Health Maintenance Due Date Last Done Comments CT Colonography 1975 FIT DNA/Cologuard 1975 FIT 1975 FOBT 1975 Sigmoidoscopy 1975 Diabetes: Foot Exam 06/28/1985 Family Planning (PISQ) 06/28/1990 Hepatitis A Vaccines (2 of 2 - Risk 2-dose series) 09/09/2024 03/12/2024 COVID-19 Vaccine ( season) 2024 04/12/2022, 01/26/2021, 01/05/2021 Influenza Vaccine (#1) 2024 4, 01/31/2023, 01/02/2021, Additional history exists Diabetes: Hemoglobin A1C 12/11/2024 025, 05/30/2024, 10/05/2023, Additional history exists Alcohol/Substance Use Screening 03/12/2025 03/12/2024 Disability Screening 06/05/2025 06/05/2024 Zoster Vaccines (1 of 2) 06/28/2025 Eye Exam 07/04/2025 07/05/2023, 06/07, 07/05/2023, Additional history exists Depression Screening 07/27/2025 07/27/2024, 07/28/19 25 SDOH Screening 07/27/2025 07/27/2024 Diabetes: Urine Protein Screening 09/10/2025 09/10/2024 Tobacco Screening 09/10/2025 09/10/2024 Lipid Panel 11/13/2025 11/13/2024, 0709/2024, 05/30/2024, Additional history exists Mammogram 08/14/2026 08/14/2024, 05/06, 10/07/2017 DTaP/Tdap/Td Vaccines [...] Blood Pressure 135/99( 025 1:19 PM EDT) Shadi Paris PharmD Procedures Procedure Name Priority Date/Time Associated Diagnosis Comments VITAMIN B6 Routine 11/13/2024 11:08 AM EDT TSH W/REFLEX TO FT4 Routine 11/13/2024 1 1:08 AM EDT VITAMIN B12/FOLATE, SERUM PANEL Routine 11/13/2024 11:08 AM EDT LIPID PANEL, STANDARD Routine 11/13/2024 11:08 AM EDT HEPATIC FUNCTION PANEL Routine 11:08 AM EDT BASIC METABOLIC PANEL Routine 11/13/2024 11:08 AM EDT Hypokalemia VITAMIN D 25-OH (D2 AND D3) Routine [...] Recently Relevant to Health Maintenance Results * Vitamin B12 (Cobalamin) and Folate Panel, Serum (11/13/2024 11:08 AM EDT) Vitamin B12 277 200 - 900 pg/mL [facility] Comment:NORMAL 200-900 PG/ML INDETERMINATE 160-199 PG/ML DEFICIENT < 160 PG/ML Folate 8.3 > or = 4.0 ng/mL [facility] Comment:Reference Values:> o r = 4.0 ng/mL< 4.0 ng/mL suggests folate deficiency Methotrexate, aminopterin and folinic acid(leucovorin) are chemotherapeutic agents whose molecularstructures are similar to folate; therefore, the Architectfolate assay cannot be used for patients using these drugs. 11/13/2024 11:0 8 AM EDT 11/13/2024 1:04 PM EDT us Generic External Data Provider LAB BLOOD ORDERAB LES Final Result [facility] [address] [place] [phone] * TSH with Reflex to Free T4 (11/13/2024 11:08 AM EDT) TSH reflex Free T4 1.82 0.32 - 4.0 uIU/mL [facility] 11/13/2024 11:0 8 AM EDT 11/13/2024 1:04 PM EDT us Generic External Data Provider LAB BLOOD ORDERAB LES Final Result Performing Organization Address [facility] Co de Phone Number [facility] [address] [place] [phone] * Hepatic Function Panel (11/13/2024 11:08 AM EDT) Bilirubin, Total 0.4 0.0 - 1.0 mg/dL [facility] Bilirubin, Direct 0.1 0.0 - 0.5 mg/dL [facility] Aspartate Amino Transferase 25 5 - 31 U/L [facility] Alanine Aminotransferase 23 0 - 31 U/L [facility] Total Protein 7.1 6.5 - 8.0 g/dL [facility] Albumin Level 4.6 3.5 - 5.0 g/dL [facility] Alkaline Phosphatase 107 39 - 117 U/L [facility] 11/13/2024 11:0 8 AM EDT 11/13/2024 1:04 PM EDT us Kay Pedersen MD LAB BLOOD ORDERABLES Final Resul t Performing Organization Address [facility] Co de Phone Number [facility] [address] [place] [phone] * (ABNORMAL) Lipid Panel, Standard (11/13/2024 11:08 AM EDT) Triglycerides 151(H) <150 mg/dL [facility] Comment:Desirable Triglyceri de: less than 150 mg/dLBorderline High Triglyceride 150-199 mg/dLHigh Triglyceride: 200-499 mg/dLVery High Triglyceride: greater than or equal to 5OO mg/dL Cholesterol 144 <200 mg/dL [facility] Comment:Desirable Cholestero l: less than 200 mg/dLBorderline High Cholesterol: 200-239 mg/dLHigh Cholesterol: greater than 239 mg/dL LDL Cholesterol Calculated 75 <100 mg/dL [facility] Comment:Desirable LDL: less than 100 mg/dLNear Optimal/Above Optimal LDL: 110- 129 mg/dLBorderline High LDL: 130-159 mg/dLHigh LDL: 160-189 mg/dLVery High LDL: greater than or equal to 190 mg/dL HDL Cholesterol 39(L) >40 mg/dL [facility] Comment:Desirable HDL: great er than 40 mg/dL Note: This HDL assay may give artificially low results in patients with liver disease. 11/13/2024 11:0 8 AM EDT 11/13/2024 1:04 PM EDT us Kay Pedersen MD LAB BLOOD ORDERABLES Final Resul t [facility] [address] [place] [phone] * (ABNORMAL) Basic Metabolic Panel (11/13/2024 11:08 AM EDT) Sodium 147(H) 135 - 145 mmol/L [facility] Potassium 3.1(L) 3.3 - 5.1 mmol/L [facility] Chloride 106 96 - 108 mmol/L [facility] Carbon Dioxide 28 22 - 29 mmol/L [facility] Anion Gap 16 12 - 20 [facility] Urea Nitrogen (BUN) 7(L) 9 - 16 mg/dL [facility] Creatinine, Serum 0.71 0.5 - 1.4 mg/dL [facility] Estimated Glomerular Filt Rate >60 [facility] Comment:Chronic Kidney Disea se: Estimated GFR < 60 mL/min/1.49p8Ouvegv Kidney Disease: Estimated GFR < 15 mL/min/1.73m2 Glucose 106 60 - 115 mg/dL [facility] Calcium 9.5 8.4 - 10.2 mg/dL [facility] Blood Venous blood specimen / Unknown 11/13/2024 11:08 AM EDT 11/13/2024 1:04 PM EDT us Kay Pedersen MD LAB BLOOD ORDERABLES Final Resul t [facility] [address] [place] [phone] * VITAMIN D 25-OH (D2 AND D3) (10/03/2024 9:13 AM EDT) Vitamin D, 25-OH, D2 <4 ng/mL [facility] Comment:This test was develo ped and its analytical performancecharacteristics have been determined by [place]. It hasnot been cleared or approved by the .[place]. Food and DrugAdministration. This assay has been validated pursuantto the CLIA regulations and is used for clinicalpurposes.THIS TEST WAS PERFORMED AT:[employer] [id number] [place] [phone] EDMONDS MD,PHD Vitamin D, 25-OH, D3 37 ng/mL [facility] Comment:This test was develo ped and its analytical performancecharacteristics have been determined by [employer] [place], [place]. It hasnot been cleared or approved by the U.S. Food and DrugAdministration. This assay has been validated pursuantto the CLIA regulations and is used for clinicalpurposes. Vitamin D, 25-OH, Total 37 30 - 100 ng/mL [facility] Comment:Vitamin D, 25-Hydrox y reports concentrations [...] = 30 ng/mL.For additional information, please refer tohttp://education.Everypoint/faq/DBV420(This link is being provided for informational/educational purposes only.) 10/03/2024 9:13 AM EDT 10/03/2024 11:23 AM EDT us Generic External Data Provider LAB BLOOD ORDERAB LES Final Result [facility] [address] [place] [phone] * T-SPOT??.TB (10/03/2024 9:13 AM EDT) [facility] T Spot TB Negative Negative [facility] Comment:A negative test resu lt does [...] as aquantitative test. TS PANEL A 0 [facility] TS PANEL B 0 [facility] Negative Control Passed [facility] Positive Control Passed [facility] Comment:For additional infor scottie, please refer tohttp://OptionEase.BioCee/faq/UXA080(This link is being provided for informational/educational purposes only.)THIS TEST WAS PERFORMED AT:[employer] [id number] [place] [id number] EDMONDS MD,PHD 10/03/2024 9:13 AM EDT 10/03/2024 11:18 AM EDT Generic External Data Provider LAB BLOOD ORDERAB LES Final Result Performing Organization Address [facility] Co de Phone Number [facility] [address] [place] [phone] * Hepatitis Panel, General (10/03/2024 9:13 AM EDT) Pathologist [facility] Hepatitis A IgM Nonreactive Nonreactive [facility] Comment:IgM antibodies to MCDANIEL V not detected; does not exclude earlyacute or recovered HAV infection. ~Hepatitis B Surface Antibody NONREACTIVE Nonreactive [facility] Comment:Nonreactive: < 8.00 mIU/mL Hepatitis B Core Antibody Nonreactive Nonreactive [facility] Hepatitis C Antibody Nonreactive Nonreactive [facility] Comment:Antibodies to HCV no t detected; does not exclude early acuteHCV infection. Hepatitis B Surface Ag Negative Negative [facility] 10/03/2024 9:13 AM EDT 10/03/2024 11:23 AM EDT Generic External Data Provider LAB BLOOD ORDERAB LES Final Result Performing Organization Address [facility] de Phone Number [facility] [address] [place] [phone] * (ABNORMAL) CBC auto differential (10/03/2024 9:13 AM EDT) Pathologist [facility] White Blood Count 8.1 4.8 - 10.8 X10*3/uL [facility] Red Blood Count 5.61(H) 4.20 - 5.50 X10*6/uL [facility] Hemoglobin 15.3 12.0 - 16.0 g/dl [facility] Hematocrit 47.3(H) 37.0 - 47.0 % [facility] Mean Corpuscular Volume 84.3 80.0 - 98.0 fL [facility] Mean Corpuscular Hemoglobin 27.3 27.0 - 33.0 pg [facility] Mean Corpuscular HGB Conc 32.3 31.0 - 35.0 g/dl [facility] Red Cell Distribution Width 13.2 11.0 - 16.0 % [facility] Platelet Count 264 160 - 400 X10*3/uL [facility] Mean Platelet Volume 11.9 9.4 - 12.3 fL [facility] Neutrophils Percent Auto 38.3(L) 45 - 73 % [facility] Imm Gran Pct Auto 0.2 0.0 - 0.4 % [facility] Lymphocytes Percent Auto 45.9(H) 20 - 40 % [facility] Monocytes Percent Auto 6.2 2 - 11 % [facility] Eosinophils Percent Auto 8.4(H) 0 - 4 % [facility] Basophils Percent Auto 1.0 0 - 2 % [facility] NRBC Pct Auto 0.0 0.0 - 0.2 /100WBC [facility] Neutrophils Absolute Auto 3.1 2.0 - 8.3 x10*3/uL [facility] Imm Gran Abs Auto 0.02 0.00 - 0.03 X10*3/uL [facility] Lymphocytes Absolute Auto 3.7 1.2 - 4.9 X10*3/uL [facility] Monocytes Absolute Auto 0.5 0.1 - 1.2 X10*3/uL [facility] Eosinophils Absolute Auto 0.7(H) 0.0 - 0.4 X10*3/uL [facility] Basophils Absolute Auto 0.1 0.0 - 0.2 X10*3/uL [facility] NRBC Abs Auto 0.000 0.0 - 0.012 X10*3/uL [facility] 10/03/2024 9:13 AM EDT 10/03/2024 11:18 AM EDT us Generic External Data Provider LAB BLOOD ORDERAB LES Final Result [facility] [address] [place] [phone] * Sed Rate by Modified Philergren (10/03/2024 9:13 AM EDT) Pathologist [facility] Erythrocyte Sedimentation Rate 6 0 - 20 MM/HR [facility] Comment:Patients with polycy themia and many hemoglobin abnormalitiesmay have depressed sed rates whereas patients with anemiamay have elevated sed rates. 10/03/2024 9:13 AM EDT 10/03/2024 11:18 AM EDT Generic External Data Provider LAB BLOOD ORDERAB LES Final Result Performing Organization Address City/[facility]/ZIP Co de Phone Number [facility] [address] [place] [phone] * C-reactive Protein (10/03/2024 9:13 AM EDT) [facility] C Reactive Protein 0.44 < or = 0.50 mg/dL [facility] 10/03/2024 9:13 AM EDT 10/03/2024 11:23 AM EDT Generic External Data Provider LAB BLOOD ORDERAB LES Final Result Performing Organization Address [facility]/ZIP Co de Phone Number [facility] [address] [place] [phone] * (ABNORMAL) Comprehensive Metabolic Panel (10/03/2024 9:13 AM EDT) Only the most recent of2 resultswithin the time period is included. Pathologist [facility] Sodium 141 135 - 145 mmol/L [facility] Potassium 3.2(L) 3.3 - 5.1 mmol/L [facility] Chloride 107 96 - 108 mmol/L [facility] Carbon Dioxide 23 22 - 29 mmol/L [facility] Anion Gap 14 12 - 20 [facility] Urea Nitrogen (BUN) 9 9 - 16 mg/dL [facility] Creatinine, Serum 0.84 0.5 - 1.4 mg/dL [facility] Estimated Glomerular Filt Rate >60 [facility] Comment:Chronic Kidney Disea se: Estimated GFR < 60 mL/min/1.98s7Vbmaik Kidney Disease: Estimated GFR < 15 mL/min/1.73m2 Glucose 125(H) 60 - 115 mg/dL [facility] Calcium 9.4 8.4 - 10.2 mg/dL [facility] Bilirubin, Total 0.3 0.0 - 1.0 mg/dL [facility] Aspartate Amino Transferase 37(H) 5 - 31 U/L [facility] Alanine Aminotransferase 39(H) 0 - 31 U/L [facility] Total Protein 7.0 6.5 - 8.0 g/dL [facility] Albumin Level 4.5 3.5 - 5.0 g/dL [facility] Alkaline Phosphatase 126(H) 39 - 117 U/L [facility] 10/03/2024 9:13 AM EDT 10/03/2024 11:23 AM EDT us Generic External Data Provider LAB BLOOD ORDERAB LES Final Result [facility] [address] [place] [phone] * (ABNORMAL) Lipid Panel with Reflex to Direct LDL (09/10/2024 2:04 PM EDT) Triglycerides 273(H) <150 mg/dL [facility] Comment:Desirable Triglyceri de: less than 150 mg/dLBorderline High Triglyceride 150-199 mg/dLHigh Triglyceride: 200-499 mg/dLVery High Triglyceride: greater than or equal to 5OO mg/dL Cholesterol 226(H) <200 mg/dL [facility] Comment:Desirable Cholestero l: less than 200 mg/dLBorderline High Cholesterol: 200-239 mg/dLHigh Cholesterol: greater than 239 mg/dL LDL Cholesterol Calculated 121(H) <100 mg/dL [facility] Comment:Desirable LDL: less than 100 mg/dLNear Optimal/Above Optimal LDL: 110- 129 mg/dLBorderline High LDL: 130-159 mg/dLHigh LDL: 160-189 mg/dLVery High LDL: greater than or equal to 190 mg/dL HDL Cholesterol 51 >40 mg/dL [facility] Comment:Desirable HDL: great er than 40 mg/dL Note: This HDL assay may give artificially low results in patients with liver disease. Blood 09/10/2024 2:04 PM EDT 09/10/2024 5:08 PM EDT Kay Pedersen MD LAB BLOOD ORDERABLES Final Resul t Performing Organization Address City/[facility] Co de Phone Number [facility] [address] [place] [phone] * Albumin, Random Urine W/Creatinine (09/10/2024 2:04 PM EDT) Creatinine, Urine 53.30 mg/dL [facility] Microalbumin Urine 12.0 mg/L [facility] Microalbum Creatinine Ratio Ur 22.5 <30 ug/mg cr [facility] Comment:Albumin/Creatinine R atio Reference Ranges: Normal: < 30 ug/mg creatinine Microalbuminuria: 30 - 300 ug/mg creatinineClinical Albuminuria: > 300 ug/mg creatinine Urine 09/10/2024 2:04 PM EDT 09/10/2024 4:12 PM EDT Kay Pedersen MD LAB URINE ORDERABLES Final Resul t Performing Organization Address City/[facility]/ZIP Co de Phone Number [facility] [address] [place] [phone] * (ABNORMAL) Hemoglobin A1c (09/10/2024 2:04 PM EDT) Hemoglobin A1c 6.9(H) <6.0 % [facility] Comment:Hemoglobin A1C Refer ence Range Adults: 4.8 - 6.0 % Non diabetic: < 6.0 % Goal: < 7.0 %Additional Action Suggested: > 8.0 %Note: Hemoglobin A1c results are invalid for patients with abnormal amounts of HbF. Blood transfusions may impact the HbA1c concentration in the patient sample. Estimated Average Glucose 151 mg/dL [facility] Comment:eAG = Estimated ave rage glucose which is %A1C expressed asaverage glucose, using the formula of the O1E-AglcwgwHdyipvn Glucose study (ADAG), Diabetes Care, Vol.31,#8,Oct. 2007 Blood Venous blood specimen / Unknown 09/10/2024 2:04 PM EDT 09/10/2024 5:08 PM EDT us Kay Pedersen MD LAB BLOOD ORDERABLES Final Resul t [facility] [address] [place] [phone] * BI Mammogram Screening Tomosynthesis Bilateral (08/14/2024 12:45 PM EDT) Anatomical Region Laterality Modality Breast Bilateral Mammography 08/14/2024 12:4 5 PM EDT Narrative 08/21/2024 5:53 PM EDT [facility] [address] [place] [address] Mammography Report Signed Patient: Mariluz Pisano MR#: [id number] : 1975 Acct:[id number] Age/Sex: 49 / F ADM Date: 08/14/24 Loc: [facility] Attending Dr: Kay Pederesn MD Ordering Physician: Kay Pedersen MD Results: 1Negative Date of Service: 08/14/24 Follow Up: 1 Year From Orig ina Mammogram Procedure(s): MM tomosynthesis screening BI Accession Number(s): [id number] cc: Kay Pedersen MD EXAMINATION: MM SCREENING [...] 08/21/24 1751 DD/ 1245 TD/TT: 08/14/24 1255 Experimental Mechanic Spacecraft: Procedure Note Donotuseinterpreter, Image - 08/21/2024 [facility] [address] [place] [address] Mammography Report Signed Patient: Debo Pisano#: [id number] : 1975Acct:[id number] Age/Sex: 49 / FADM Date: 08/14/24 Loc: [facility] Attending Dr: Kay Pedersen MD Ordering Physician: Kay Pedersen MDResults: 1Negative Date of Service: 08/14/24Follow Up: 1 Year From [facility] Mammogram Procedure(s): MM tomosynthesis screening BI Accession Number(s): [id number] cc: Kay Pedersen MD EXAMINATION: MM SCREENING [...] 08/21/24 1751 DD/ 1245 TD/TT: 08/14/24 1255 Experimental Mechanic Spacecraft: Kay Pedersen MD IMG BI PROCEDURES Final Result * Hm Colonoscopy (11/09/2022) Pathologist [facility] Colonoscopy Normal Normal 11/09/2022 Jacinto Daniel MD HEALTH MAINTENANCE Final Result * HIV AB/AG (04/18/2019 11:04 AM EST) Pathologist [facility] HIV AG/AB NONREACTIVE NR FOUNDATI ON LAB [...] of detection of this assay. The [employer] Representative HIV Ag/Ab Combo assay result and supplemental assay results should be interpreted in conjunction with the patient's clinical presentation, history and other laboratory results. If the results are inconsistent with clinical evidence, additional testing is suggested to confirm the result. 04/18/2019 11:0 4 AM EST Tanner Reyes MD HISTORICAL/NON ORDERABLE LAB S Final Result [facility] [address] from Last 3 Months or Most Recently Relevant to Health Maintenance [email or web address] Care Teams Tar Worker Relationship Specialty Start Date End Date Kay Pedersen MD [address] [place] [address] PCP - General Family Medicine 09/10/22 Shadi Cabrera, PharmD [address] [place] [address] Pharmacist Internal Medicine 05/31/23 Garrett Gilbert MD [address] [place] [address] Drive [address] [place] [address] Nephrology 06/18/24 Adryan Werner MD Cytology Technologist 06/18/24 Kerry Gallo Rheumatology 06/18/24
--- OUTSIDE RECORDS SUMMARY | 2024-11-27 15:41 | XMS_ITS | Encounter Summary ---
Author Organization [email or web address] [facility] Address [address] [facility] 7t [place] [address] Care Team Providers Care Field Inspector Name Role Phone Jasmine Rodriguez WASTE MACHINE TENDER Primary Care Provider Mary Kay Escobar MD Primary Care Provider [phone] Shadi Cabrera PharmD Unavailable [phone] Garrett Gilbert MD Unavailable [phone] Encounter Details Date Type Department Care Team (Late st Contact Info) Description 03/25/2022 Orders Only [facility] [address] [place] [address] Megan Munoz LPN Social History Tobacco Use [...] Description 01/11/2025 1:00 PM EST Medication Management [address] [address] Shadi Cabrera, PharmD [address] [place], [place] [phone] 01/21/2025 3:45 PM EST Office Visit [address] [phone] Kay Pedersen MD [address] [place] [address] [phone] documented as of this encounter Visit Diagnoses Not on filedocumented in this encounter Care Teams Field Inspector Relationship Specialty Start Date End Date Jasmine Rodriguez FNP PCP - General Family Medicine 01/25/22 09/09/22 Kay Pedersen MD [address] [place] [address] PCP - General Family Medicine 09/10/22 Shadi Cabrera, Solaneg [address] [place] [address] Pharmacist Internal Medicine 05/31/23 Garrett Gilbert MD [address] [place] [address] Drive [address] [place] [address] Nephrology 06/18/24 Adryan Werner MD National Account Director 06/18/24 Kerry Gallo Rheumatology 06/18/24 documented as of this encounter
--- OUTSIDE RECORDS SUMMARY | 2024-11-27 15:41 | XMS_ITS | Encounter Summary ---
Author Organization [employer] Address [address] [facility] [address] 7t [place] [address] Care Team Providers Care Dial Equipment Engineer Name Role Phone Kay Pedersen MD Primary Care Provider [phone] Shaid Cabrera PharmD Unavailable [phone] Garrett Gilbert MD Unavailable [phone] Encounter Details Date Type Department Care Team ([facility] st Contact Info) Description 10/08/2024 Orders Only [facility] MEDICINE 230 [place], [place] [phone] Kay Pedersen MD 230 [place], [place] [phone] Social History Tobacco Use Types Packs/Day Years [...] is your housing situation today? I have rviera collins 12/20/[address] you [...] Description 01/11/2025 1:00 PM EST Medication Management [address] [address] Shadi Cabrera, PharmD [address] [place] [address] 01/21/2025 3:45 PM EST Office Visit [address] [address] Kay Pedersen MD [address] [place] [address] documented as of this encounter Goals Goal [...] documented as of this encounter Care Teams Dial Equipment Engineer Relationship Specialty Start Date End Date Kay Pedersen MD [address] [place] [address] PCP - General Family Medicine 09/10/22 Shadi Cabrera, Solange [address] [place] [address] Pharmacist Internal Medicine 05/31/23 Garrett Gilbert MD [address] [place] [address] Drive [address] [place] [address] Nephrology 06/18/24 Adryan Werner MD Newspaper Stuffer 06/18/24 Kerry Gallo Rheumatology 06/18/24 documented as of this encounter
--- OUTSIDE RECORDS SUMMARY | 2024-11-27 15:41 | XMS_ITS | Encounter Summary ---
Author Organization [email or web address] Address [address] [facility] [address] 7t [place] [address] Care Team Providers Care Telephone Ad Taker Name Role Phone Kay Pedersen MD Primary Care Provider Shadi Cabrera PharmD Unavailable [phone] Garrett Gilbert MD Unavailable [phone] Encounter Details Date Type Department Care Team ([facility] st Contact Info) Description 09/14/2024 Orders Only [facility] MED[facility]INE [address] [place], [place] [phone] Kay Pedersen MD 230 [place], [place] [phone] Hypokalemia (Primary Dx) Social History Tobacco Use [...] Description 01/11/2025 1:00 PM EST Medication Management [address] [address] Shadi Cabrera, PharmD [address] [place] [address] 01/21/2025 3:45 PM EST Office Visit [address] [address] Kay Pedersen MD [address] [place] [address] [phone] documented as of this encounter Goals Goal Patient Goal Type Associated Problems Recent Progress Patient-Stated? Author Blood Pressure < 140/90 Blood Pressure 135/99( 025 1:19 PM EDT) No Shadi Cabrera, PharmD documented as of this encounter Procedures Procedure Name Priority Date/Time Associated Diagnosis Comments BASIC METABOLIC PANEL Routine 11/13/2024 11:08 AM EDT Hypokalemia documented in this encounter Results * (ABNORMAL) Basic Metabolic Panel (11/13/2024 11:08 AM EDT) Sodium 147(H) 135 - 145 mmol/L [facility] Potassium 3.1(L) 3.3 - 5.1 mmol/L [facility] Chloride 106 96 - 108 mmol/L [facility] Carbon Dioxide 28 22 - 29 mmol/L [facility] Anion Gap 16 12 - 20 [facility] Urea Nitrogen (BUN) 7(L) 9 - 16 mg/dL [facility] Creatinine, Serum 0.71 0.5 - 1.4 mg/dL [facility] Estimated Glomerular Filt Rate >60 [facility] Comment:Chronic Kidney Disea se: Estimated GFR < 60 mL/min/1.08q5Fhjdqv Kidney Disease: Estimated GFR < 15 mL/min/1.73m2 Glucose 106 60 - 115 mg/dL [facility] Calcium 9.5 8.4 - 10.2 mg/dL [facility] Blood Venous blood specimen / Unknown 11/13/2024 11:08 AM EDT 11/13/2024 1:04 PM EDT us Kay Pedersen MD LAB BLOOD ORDERABLES Final Resul t [facility] [address] [place] [phone] documented in this encounter Visit Diagnoses Diagnosis Hypokalemia- Primary Hypopotassemia documented in this encounter Additional Health Concerns Assessment Noted Time PHQ-9 Depression Total Score: 5 07/28/19 25 3:55 PM EDT documented as of this encounter Care Teams Telephone Ad Taker Relationship Specialty Start Date End Date Kay Pedersen MD [address] [place] [address] PCP - General Family Medicine 09/10/22 Shadi Cabrera, CatalinaD [address] [place] [address] Pharmacist Internal Medicine 05/31/23 Garrett Gilbert MD [address] [place] [address] Drive [address] [place] [address] Nephrology 06/18/24 Adryan Werner MD Pest Management Supervisor 06/18/24 Kerry Gallo Rheumatology 06/18/24 documented as of this encounter
--- OUTSIDE RECORDS SUMMARY | 2024-11-27 15:41 | XMS_ITS | Encounter Summary ---
Author Organization [email or web address] [facility] Address [address] [facility] 7t [place] [address] Care Team Providers Care Health Care Administrator Name Role Phone Jasmine Rodriguez EARTH BORING MACHINE OPERATOR Primary Care Provider Mary Kay Escobar MD Primary Care Provider [phone] Shadi Cabrera PharmD Unavailable [phone] Garrett Gilbert MD Unavailable [phone] Encounter Details Date Type Department Care Team (Late st Contact Info) Description 05/24/2022 Orders Only [facility] [address] [place] [address] Iliana Geller LPN Social History Tobacco Use [...] Department Care Team (Late Contact Info) Description 01/11/2025 1:00 PM EST Medication Management [facility] MED[facility]INE [address] [place] [address] Shadi Cabrera, PharmD [address] [place], [place] [phone] 01/21/2025 3:45 PM EST Office Visit [facility] [address] [place] [address] Kay Pedersen MD [address] [place] [address] [phone] documented as of this encounter Visit Diagnoses Not on filedocumented in this encounter Care Teams Health Care Administrator Relationship Specialty Start Date End Date Jasmine Rodriguez FNP PCP - General Family Medicine 01/25/22 09/09/22 Kay Pedersen MD [address] [place] [address] PCP - General Family Medicine 09/10/22 Shadi Cabrera, CatalinaD [address] [place] [address] Pharmacist Internal Medicine 05/31/23 Garrett Gilbert MD [address] [place] [address] Drive [address] [place] [address] Nephrology 06/18/24 Adryan Werner MD Electric Scoop Operator 06/18/24 Kerry Gallo Rheumatology 06/18/24 documented as of this encounter
--- OUTSIDE RECORDS SUMMARY | 2024-11-27 15:41 | XMS_ITS | Encounter Summary ---
Author Organization [employer] [facility] Address [address] [facility] 7t [place] [address] Care Team Providers Care Pst Specialist Name Role Phone Kay Pedersen MD Primary Care Provider [phone] Shadi Cabrera PharmD Unavailable [phone] Garrett Gilbert MD Unavailable [phone] Reason for Referral * Consultation (Routine) - Closed Specialty Diagnoses / Procedures Referred By Contac t Referred To Contact Optometry Diagnoses Type 2 diabetes mellitus with other specified complication, without long-term current use of insulin (CMS/HCC) Kay Pedersen MD [address] [place] [address] Phone: tel: fax: [facility] OPTOMETRY [address] [place] [address] Phone: tel: fax: Referral ID Status Reason Start Date Expiration Date V isits Requested Visits Authorized [id number] Closed Consult and Treat 09/14/2024 09/14/2025 1 1 Encounter Details Date Type Department Care Team (Late st Contact Info) Description 09/14/2024 Orders Only [facility] 230 [place], [place] [phone] Kay Pedersen MD [address] [place], [place] [phone] Type 2 diabetes mellitus with other specified [...] Description 01/11/2025 1:00 PM EST Medication Management [facility] [address] [place] [address] Shadi Cabrera, PharmD [address] [place] [address] 01/21/2025 3:45 PM EST Office Visit [facility] [address] [place] [address] [place] [address] Scheduled Referrals Name Type Priority Associated Diagnoses Orde r Schedule Referral to [facility] Eye Care Outpatient Referral Routine Type 2 diabetes mellitus with other specified complication, without long-term current use of insulin (CMS/[facility]) Expected: 09/14/2024 (Approximate), Expires: 09/14/2025 documented as of this encounter Goals Goal Patient Goal Type Associated Problems Recent Progress Patient-Stated? Author Blood Pressure < 140/90 Blood Pressure 135/99( 025 1:19 PM EDT) No Shadi Cabrera, PharmD documented as of this encounter Visit Diagnoses Diagnosis Type 2 diabetes mellitus with other specified complication, without long-term current use of insulin (CMS/[facility])- Primary documented in this encounter Additional Health Concerns Assessment Noted Time PHQ-9 Depression Total Score: 5 07/28/19 25 3:55 PM EDT documented as of this encounter Care Teams Pst Specialist Relationship Specialty Start Date End Date Kay Pedersen MD [address] [place] [address] PCP - General Family Medicine 09/10/22 Shadi Cabrera, PharmD [address] [place] [address] Pharmacist Internal Medicine 05/31/23 Garrett Gilbert MD [address] [place] [address] Nephrology 06/18/24 Adryan Werner MD Data Compiler 06/18/24 Kerry Gallo Rheumatology 06/18/24 documented as of this encounter
== END 2024-11-27 13:28 | disposition home or self-care (01) ==
LOC: HO.HKA 12:49
PROVIDERS: PCP Family Medicine; Visit Provider Internal Medicine Hypertension Specialist
DX: E87.6 Hypokalemia (principal)
CPT/HCPCS: 99213

== ENCOUNTER → 2024-11-27 12:48 | Outpatient (BNVA) | payer MEDICAID, SELFPAY | PROVIDERS: PCP Family Medicine; Visit Provider Internal Medicine Hypertension Specialist | DX: E87.6 Hypokalemia (principal) | CPT/HCPCS: 99212 ==

== ENCOUNTER 2024-11-28 11:15 | Outpatient (REF) | payer MEDICAID, SELFPAY ==
[2024-11-28 13:13] LABS: Anion Gap 12 (12-20); Blood Urea Nitrogen 6 mg/dL (9-16); Calcium 9.5 mg/dL (8.4-10.2); Carbon Dioxide 26 mmol/L (22-29); Chloride 109 mmol/L (96-108); Estimated Glomerular Filt Rate > 60; Potassium 3.3 mmol/L (3.3-5.1); Sodium 144 mmol/L (135-145)
--- OUTSIDE RECORDS SUMMARY | 2024-11-28 14:26 | XMS_ITS | Encounter Summary ---
Author Organization [employer] Address [address] [facility] [address] 7t [place] [address] Care Team Providers Care Cabin Man Name Role Phone Kay Pedersen MD Primary Care Provider [phone] Shadi Cabrera PharmD Unavailable [phone] Garrett Gilbert MD Unavailable [phone] Encounter Details Date Type Department Care Team ([facility] st Contact Info) Description 11/23/2024 Telephone [facility] [address] [place], [place] [phone] Dot Pena [place] Social History Tobacco Use [...] Description 01/11/2025 1:00 PM EST Medication Management [facility] MEDICINE [address] [place] [phone] Shadi Cabrera PharmD [address] [place] [address] 01/21/2025 3:45 PM EST Office Visit [facility] MED[facility]INE [address] [place] [address] Kay Pedersen MD [address] [place] [address] documented as of this encounter Goals Goal [...] documented as of this encounter Care Teams Cabin Man Relationship Specialty Start Date End Date Kay Pedersen MD [address] [place] [address] PCP - General Family Medicine 09/10/22 Shadi Cabrera, CatalinaD 230 [place] [address] Pharmacist Internal Medicine 05/31/23 Garrett Gilbert MD [address] [place] [address] Drive [address] [place] [address] Nephrology 06/18/24 Adryan Werner MD Felt Finisher 06/18/24 Kerry Gallo Rheumatology 06/18/24 documented as of this encounter
--- OUTSIDE RECORDS SUMMARY | 2024-11-28 14:26 | XMS_ITS | Encounter Summary ---
Author Organization [employer] Address [address] [facility] [address] [place] [address] Care Team Providers Care Pollution Control Technician Name Role Phone Kay Pedersen MD Primary Care Provider [phone] Shadi Cabrera PharmD Unavailable [phone] Garrett Gilbert MD Unavailable [phone] Encounter Details Date Type Department Care Team ([facility] Contact Info) Description 11/13/2024 Results [facility] 230 [place], [place] [phone] Kay Pedersen MD 230 [place], [place] [phone] Basic Metabolic Panel Social History Tobacco Use [...] Description 01/11/2025 1:00 PM EST Medication Management [address] [address] Shadi Cabrera, PharmD [address] [place] [address] 01/21/2025 3:45 PM EST Office Visit [address] [address] Kay Pedersen MD [address] [place] [address] documented as of this encounter Goals Goal [...] documented as of this encounter Care Teams Pollution Control Technician Relationship Specialty Start Date End Date Kay Pedersen MD [address] [place] [address] PCP - General Family Medicine 09/10/22 Shadi Cabrera, CatalinaD [address] [place] [address] Pharmacist Internal Medicine 05/31/23 Garrett Gilbert MD [address] [place] [address] Drive [address] [place] [address] Nephrology 06/18/24 Adryan Werner MD Director Of Business Operations 06/18/24 Kerry Gallo Rheumatology 06/18/24 documented as of this encounter
--- OUTSIDE RECORDS SUMMARY | 2024-11-28 14:26 | XMS_ITS | Encounter Summary ---
Author Organization [employer] Address [address] 7t [place] [address] Care Team Providers Care Suspect Artist Name Role Phone Kay Pedersen MD Primary Care Provider [phone] Shadi Cabrera PharmD Unavailable [phone] Garrett Gilbert MD Unavailable [phone] Encounter Details Date Type Department Care Team ([facility] st Contact Info) Description 09/14/2024 Orders Only [facility] [address] [place], [place] [phone] Kay Pedersen MD [address] [place], [place] [phone] Hypokalemia (Primary Dx) Social History Tobacco Use [...] Description 01/11/2025 1:00 PM EST Medication Management [address] [address] Shadi Cabrera, PharmD [address] [place] [address] 01/21/2025 3:45 PM EST Office Visit [address] [address] Kay Pedersen MD [address] [place] [address] [phone] documented as of this encounter Goals Goal [...] EDT) Sodium 147(H) 135 - 145 mmol/L [facility] Potassium 3.1(L) 3.3 - 5.1 mmol/L [facility] Chloride 106 96 - 108 mmol/L [facility] Carbon Dioxide 28 22 - 29 mmol/L [facility] Anion Gap 16 12 - 20 [facility] Urea Nitrogen (BUN) 7(L) 9 - 16 mg/dL [facility] Creatinine, Serum 0.71 0.5 - 1.4 mg/dL [facility] Estimated Glomerular Filt Rate >60 [facility] Comment:Chronic Kidney Disea se: Estimated GFR < 60 mL/min/1.03e7Ryxczh Kidney Disease: Estimated GFR < 15 mL/min/1.73m2 Glucose 106 60 - 115 mg/dL [facility] Calcium 9.5 8.4 - 10.2 mg/dL [facility] Blood Venous blood specimen / Unknown 11/13/2024 11:08 AM EDT 11/13/2024 1:04 PM EDT us Kay Pedersen MD LAB BLOOD ORDERABLES Final Resul t [facility] [address] [place] [phone] documented in this encounter Visit Diagnoses Diagnosis Hypokalemia- Primary Hypopotassemia documented in this encounter Additional Health Concerns Assessment Noted Time PHQ-9 Depression Total Score: 5 07/28/19 25 3:55 PM EDT documented as of this encounter Care Teams Suspect Artist Relationship Specialty Start Date End Date Kay Pedersen MD [address] [place] [address] PCP - General Family Medicine 09/10/22 Shadi Cabrera, CatalinaD [address] [place] [address] Pharmacist Internal Medicine 05/31/23 Garrett Gilbert MD [address] [place] [address] Drive [address] [place] [address] Nephrology 06/18/24 Adryan Werner MD Auto Inspector 06/18/24 Kerry Gallo Rheumatology 06/18/24 documented as of this encounter
--- OUTSIDE RECORDS SUMMARY | 2024-11-28 14:26 | XMS_ITS | Encounter Summary ---
Author Organization [employer] Address [address] 7t [place] [address] Care Team Providers Care Aquatic Biologist Name Role Phone Kay Pedersen MD Primary Care Provider [phone] Shadi Cabrera PharmD Unavailable [phone] Garrett Gilbert MD Unavailable [phone] Reason for Visit * Reason Comments Med Refill Encounter Details Date Type Department Care Team (Late st Contact Info) Description 06/22/2023 Refill [facility] [address] [place], [place] [phone] Kay Pedersen MD [address] [place], [place] [phone] Earache; Moderate persistent asthma without complication Social [...] Description 01/11/2025 1:00 PM EST Medication Management [address] [address] Shadi Cabrera PharmD [address] [place] [address] 01/21/2025 3:45 PM EST Office Visit [address] [address] Kay Pedersen MD [address] [place] [address] documented as of this encounter Goals Goal [...] documented as of this encounter Care Teams Aquatic Biologist Relationship Specialty Start Date End Date Kay Pedersen MD [address] [place] [address] PCP - General Family Medicine 09/10/22 Shadi Cabrera PharmD [address] [place] [address] Pharmacist Internal Medicine 05/31/23 Garrett Gilbert MD [address] [place] [address] [address] [place] [address] Nephrology 06/18/24 Adryan Werner MD Band Instrument Maker 06/18/24 Kerry Gallo Rheumatology 06/18/24 documented as of this encounter
--- OUTSIDE RECORDS SUMMARY | 2024-11-28 14:26 | XMS_ITS | Encounter Summary ---
Author Organization [employer] Address [address] [facility] [address] 7t [place] [address] Care Team Providers Care Tentmaker Name Role Phone Kay Pedersen MD Primary Care Provider [phone] Shadi Cabrera PharmD Unavailable [phone] Garrett Gilbert MD Unavailable [phone] Encounter Details Date Type Department Care Team ([facility] st Contact Info) Description 07/05/2024 Orders Only [facility] [address] [place], [place] [phone] Kay Pedersen MD 230 [place], [place] [phone] Pneumonia of right middle lobe due to [...] Description 01/11/2025 1:00 PM EST Medication Management [address] [address] Shadi Cabrera, PharmD [address] [place] [address] 01/21/2025 3:45 PM EST Office Visit [address] [address] Kay Pedersen MD [address] [place] [address] Scheduled Orders Name Type Priority Associated Diagnoses [...] documented as of this encounter Care Teams Tentmaker Relationship Specialty Start Date End Date Kay Pedersen MD 230 [place] [address] PCP - General Family Medicine 09/10/22 Shadi Cabrera, Solange [address] [place] [address] Pharmacist Internal Medicine 05/31/23 Garrett Gilbert MD [address] [place] [address] Nephrology 06/18/24 Adryan Werner MD Human Resources Specialist 06/18/24 Kerry Gallo Rheumatology 06/18/24 documented as of this encounter
--- OUTSIDE RECORDS SUMMARY | 2024-11-28 14:26 | XMS_ITS | Encounter Summary ---
Author Organization [employer] [facility] Address [address] [facility] 7t [place] [address] Care Team Providers Care Orthodontist Small Business Owner Name Role Phone Kay Pedersen MD Primary Care Provider [phone] Shadi Cabrera PharmD Unavailable [phone] Garrett Gilbert MD Unavailable [phone] Reason for Referral * Consultation (Routine) - Closed Specialty Diagnoses / Procedures Referred By Contac t Referred To Contact Pharmacy Diagnoses Hypertension, unspecified type Moderate persistent asthma without complication Kay Pedersen MD 230 [place] [address] Phone: tel: fax: Referral ID Status Reason Start Date Expiration Date V isits Requested Visits Authorized [id number] Closed Consult and Treat 12/05/2023 12/04/2024 6 6 Encounter Details Date Type Department Care Team (Late st Contact Info) Description 12/05/2023 Orders Only [facility] [address] [place], [place] [phone] Kay Pedersen MD [address] [place], [place] [phone] Hypertension, unspecified type (Primary Dx); Moderate persistent [...] Description 01/11/2025 1:00 PM EST Medication Management [facility] [address] [place] [address] Shadi Cabrera, CatalinaD [address] [place] [address] 01/21/2025 3:45 PM EST Office Visit [facility] [address] [place] [address] Kay Pedersen MD [address] [place] [address] Scheduled Referrals Name Type Priority Associated Diagnoses [...] documented as of this encounter Care Teams Orthodontist Small Business Owner Relationship Specialty Start Date End Date Kay Pedersen MD [address] [place] [address] PCP - General Family Medicine 09/10/22 Shadi Cabrera, PharmD [address] [place] [address] Pharmacist Internal Medicine 05/31/23 Garrett Gilbert MD [address] [place] [address] Drive [address] [place] [address] Nephrology 06/18/24 Adryan Werner MD Pad Making Machine Operator 06/18/24 Kerry Gallo Rheumatology 06/18/24 documented as of this encounter
--- OUTSIDE RECORDS SUMMARY | 2024-11-28 14:26 | XMS_ITS | Encounter Summary ---
Author Organization [employer] [facility] Address [address] [facility] 7t [place] [address] Care Team Providers Care Industrial Waste Inspector Name Role Phone Jasmine Rodriguez TEXTILE KNITTER Primary Care Provider Mary Kay Escobar MD Primary Care Provider [phone] Shadi Cabrera PharmD Unavailable [phone] Garrett Gilbert MD Unavailable [phone] Encounter Details Date Type Department Care Team (Late st Contact Info) Description 03/25/2022 Orders Only [facility] [address] [place] [address] Megan Munoz LPN Social History Tobacco Use [...] Description 01/11/2025 1:00 PM EST Medication Management [address] [address] Shadi Cabrera, PharmD [address] [place], [place] [phone] 01/21/2025 3:45 PM EST Office Visit [address] [phone] Kay Pedersen MD [address] [place] [address] [phone] documented as of this encounter Visit Diagnoses Not on filedocumented in this encounter Care Teams Industrial Waste Inspector Relationship Specialty Start Date End Date Jasmine Rodriguez FNP PCP - General Family Medicine 01/25/22 09/09/22 Kay Pedersen MD [address] [place] [address] PCP - General Family Medicine 09/10/22 Shadi Cabrera, Solange [address] [place] [address] Pharmacist Internal Medicine 05/31/23 Garrett Gilbert MD [address] [place] [address] Drive [address] [place] [address] Nephrology 06/18/24 Adryan Werner MD Technical Designer 06/18/24 Kerry Gallo Rheumatology 06/18/24 documented as of this encounter
--- OUTSIDE RECORDS SUMMARY | 2024-11-28 14:26 | XMS_ITS | Encounter Summary ---
Author Organization [facility] Address [address] [facility] 7t [place] [address] Care Team Providers Care Manager Of Compensation Name Role Phone Kay Pedersen MD Primary Care Provider [phone] Shadi Cabrera PharmD Unavailable [phone] Garrett Gilbert MD Unavailable [phone] Reason for Referral * Consultation (Routine) - Closed Specialty Diagnoses / Procedures Referred By Contac t Referred To Contact Optometry Diagnoses Type 2 diabetes mellitus with other specified complication, without long-term current use of insulin (CMS/HCC) Kay Pedersen MD [address] [place] [address] Phone: tel: fax: [facility] [address] [place] [address] Phone: tel: fax: Referral ID Status Reason Start Date Expiration Date V isits Requested Visits Authorized [id number] Closed Consult and Treat 09/14/2024 09/14/2025 1 1 Encounter Details Date Type Department Care Team (Late st Contact Info) Description 09/14/2024 Orders Only [facility] [address] [place], [place] [phone] Kay Pedersen MD [address] [place], [place] [phone] Type 2 diabetes mellitus with other specified [...] Description 01/11/2025 1:00 PM EST Medication Management [facility] [address] [place] [address] Shadi Cabrera, PharmD [address] [place] [address] 01/21/2025 3:45 PM EST Office Visit [facility] [address] [place] [address] [place] [address] Scheduled Referrals Name Type Priority Associated Diagnoses Orde r Schedule Referral to [facility] Outpatient Referral Routine Type 2 diabetes mellitus with other specified complication, without long-term current use of insulin (CMS/[facility]) Expected: 09/14/2024 (Approximate), Expires: 09/14/2025 documented as of this encounter Goals Goal Patient Goal Type Associated Problems Recent Progress Patient-Stated? Author Blood Pressure < 140/90 Blood Pressure 135/99( 025 1:19 PM EDT) No Shadi Cabrera, PharmD documented as of this encounter Visit Diagnoses Diagnosis Type 2 diabetes mellitus with other specified complication, without long-term current use of insulin (CMS/[facility])- Primary documented in this encounter Additional Health Concerns Assessment Noted Time PHQ-9 Depression Total Score: 5 07/28/19 25 3:55 PM EDT documented as of this encounter Care Teams Manager Of Compensation Relationship Specialty Start Date End Date Kay Pedersen MD [address] [place] [address] PCP - General Family Medicine 09/10/22 Shadi Cabrera, PharmD [address] [place] [address] Pharmacist Internal Medicine 05/31/[address] [place] [address] Nephrology 06/18/24 Adryan Werner MD Leather Sorter 06/18/24 Kerry Gallo Rheumatology 06/18/24 documented as of this encounter
--- OUTSIDE RECORDS SUMMARY | 2024-11-28 14:26 | XMS_ITS | Encounter Summary ---
Author Organization [employer] [facility] Address [address] [facility] 7t [place] [address] Care Team Providers Care Pharmacy Aide Name Role Phone Jasmine Rodriguez PHOTO MASK CLEANER Primary Care Provider Mary Kay Escobar MD Primary Care Provider [phone] Shadi Cabrera PharmD Unavailable [phone] Garrett Gilbert MD Unavailable [phone] Encounter Details Date Type Department Care Team (Late st Contact Info) Description 05/24/2022 Orders Only [facility] [address] [place] [address] Iliana Geller LPN Social History Tobacco Use [...] 1:00 PM EST Medication Management [facility] [address] [place] [address] Shadi Cabrera, PharmD [address] [place], [place] [phone] 01/21/2025 3:45 PM EST Office Visit [facility] [address] [place] [address] Kay Pedersen MD [address] [place] [address] [phone] documented as of this encounter Visit Diagnoses Not on filedocumented in this encounter Care Teams Pharmacy Aide Relationship Specialty Start Date End Date Jasmine Rodriguez FNP PCP - General Family Medicine 01/25/22 09/09/22 Kay Pedersen MD [address] [place] [address] PCP - General Family Medicine 09/10/22 Shadi Cabrera, CatalinaD [address] [place] [address] Pharmacist Internal Medicine 05/31/23 Garrett Gilbert MD [address] [place] [address] Drive [address] [place] [address] Nephrology 06/18/24 Adryan Werner MD Labor Commissioner 06/18/24 Kerry Gallo Rheumatology 06/18/24 documented as of this encounter
--- OUTSIDE RECORDS SUMMARY | 2024-11-28 14:26 | XMS_ITS | Encounter Summary ---
Author Organization [employer] Address [address] [facility] [address] 7t [place] [address] Care Team Providers Care Measurement Superintendent Name Role Phone Kay Pedersen MD Primary Care Provider [phone] Shadi Cabrera PharmD Unavailable [phone] Garrett Gilbert MD Unavailable [phone] Encounter Details Date Type Department Care Team ([facility] st Contact Info) Description 10/08/2024 Orders Only [facility] 230 [place], [place] [phone] Kay Pedersen MD [address] [place], [place] [phone] Social History Tobacco Use Types Packs/Day Years [...] Description 01/11/2025 1:00 PM EST Medication Management [address] [address] Shadi Cabrera, PharmD [address] [place] [address] 01/21/2025 3:45 PM EST Office Visit [address] [address] Kay Pedersen MD [address] [place] [address] documented as of this encounter Goals Goal [...] documented as of this encounter Care Teams Measurement Superintendent Relationship Specialty Start Date End Date Kay Pedersen MD [address] [place] [address] PCP - General Family Medicine 09/10/22 Shadi Cabrera, Solange [address] [place] [address] Pharmacist Internal Medicine 05/31/23 Garrett Gilbert MD [address] [place] [address] Drive [address] [place] [address] Nephrology 06/18/24 Adryan Werner MD Frame Cleaner 06/18/24 Kerry Gallo Rheumatology 06/18/24 documented as of this encounter
--- OUTSIDE RECORDS SUMMARY | 2024-11-28 14:26 | XMS_ITS | Clinical Summary ---
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 - GI: [facility], last seen in Nov 2022 - continue [...] 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 Chronic upper back pain 10/12/2022 Assessment & Plan (01/31/2023 5:58 AM EST): - following with net lead developer - continue duloxetine, cyclobenzaprine Assessment & Plan (10/14/2022 10:27 AM EDT): - following with net lead developer - continue duloxetine, cyclobenzaprine Acid reflux 10/12/2022 [...] Interested in Acupuncture, so given info on [facility] Acupuncture clinics. She has also been scheduled with [facility] prescriber to transfer care. Meanwhile, continue [...] (09/10/2024 12:55 PM EDT): - following with [facility] Rheumatology, last seen on 03/04/24 - previously taking methotrexate - currently taking leflunomide - patient did not take leflunomide from 09/03/23 to 11/01/23 due to sepsis and cellulitis - continue current treatment plan Assessment & Plan (06/06/2024 11:02 AM EDT): - following with [facility] Rheumatology, last seen on 03/04/24 - previously taking methotrexate - currently taking leflunomide - patient did not take leflunomide from 09/03/23 to 11/01/23 due to sepsis and cellulitis - continue current treatment plan Assessment & Plan (03/10/2024 6:33 PM EST): - following with [facility] Rheumatology, last seen on 03/04/24 - previously taking methotrexate - currently taking leflunomide - patient did not take leflunomide from 09/03/23 to 11/01/23 due to sepsis and cellulitis - continue current treatment plan Assessment & Plan (11/25/2023 4:46 PM EDT): - following with [facility] Rheumatology, last seen on 11/01/23 - previously taking methotrexate - currently taking leflunomide - patient did not take leflunomide from 09/03/23 to 11/01/23 due to sepsis and cellulitis - continue current treatment plan Assessment & Plan (05/01/2023 11:33 AM EST): - following with [facility] Rhuematology - previously taking methotrexate - currently taking leflunomide - continue current treatment plan Assessment & Plan (01/31/2023 5:59 AM EST): [facility] - currently taking leflunomide - continue current treatment plan Assessment & Plan (10/14/2022 10:30 AM EDT): [facility] - currently [...] 3 to 4 months - following with [facility] pulmonology, last seen in June [...] prednisone. No antibiotic. - following with [facility] pulmonology, last seen in Mar [...] prednisone. No antibiotic. - following with [facility] pulmonology, last seen in Jan [...] short course of prednisone - following with [facility] pulmonology - Continue budesonide / formoterol (Symbicort) as maintenance - Continue albuterol as rescue - Continue montelukast Assessment & Plan (04/25/2023 3:28 PM EST): - following with [facility] pulmonology - Continue budesonide / formoterol (Symbicort) as maintenance - Continue albuterol as rescue - Continue montelukast Assessment & Plan (01/31/2023 5:56 AM EST): - following with [facility] pulmonology - Continue Symbicort as maintenance - Continue albuterol as rescue - Continue montelukast Assessment & Plan (10/14/2022 9:40 AM EDT): - following with [facility] pulmonology - Continue Symbicort as [...] Encounters Date Type Department Care Team Description 11/28/2024 Orders Only GENERIC EXTERNAL DATA DEPARTMENT Provider, Generic External Data 11/23/2024 Telephone [facility] [address] [place] [id number] Dot Pena [place] 11/20/[address] [address] Kay Pedersen MD 11/13/[address] [address] Cheyenne Underwood, GIO Results 11/13/2024 Results Follow-Up [address] [address] Kay Pedersen MD Basic Metabolic Panel 11/13/2024 Orders Only [address] [address] Kay Pedersen MD 11/11/[address] [address] Kay Pedersen MD Primary hypertension 11/09/2024 1:00 PM EDT Telemedicine [address] [address] Shadi Cabrera, CatalinaD Hypertension, unspecified type (Primary Dx); Moderate persistent asthma without complication 11/07/2024 Patient Outreach [address] [address] Kay Pedersen MD Care Coordination (SDOH) 11/06/2024 Patient Outreach [address] [address] Kay Pedersen MD Care Management (C3CM- f/u call. Not available.) 10/25/2024 Patient Outreach [address] [address] Kay Pedersen MD Care Management (C3CM- f/u call) 10/24/2024 Patient Outreach [address] [address] Kay Pedersen MD Care Coordination (Appt reminder) 10/11/2024 Patient Outreach [address] [place] [address] Kay Pedersen MD Care Management (C3CM- f/u call) 10/11/[address] [address] Kay Pedersen MD Durable Medical Equipment (PA: Darci) 10/10/2024 Patient Outreach [address] [address] Kay Pedersen MD Care Coordination (Appt reminder) 10/08/2024 1:30 PM EDT Telemedicine [facility] [place] [address] Shadi Cabrera, Solange Hypertension, unspecified type (Primary Dx); Moderate persistent asthma without complication; Type 2 diabetes mellitus without complication, without long-term current use of insulin (CMS/HCC) 10/08/2024 Orders Only [address] [address] Kay Pedersen MD 10/03/2024 Orders Only GENERIC EXTERNAL DATA DEPARTMENT Provider, Generic External Data 10/01/2024 Patient Outreach [address] [address] Kay Pedersen MD Care Coordination (Appt reminder) 09/26/2024 Patient Outreach [address] [address] Kay Pedersen MD Care Coordination (SDME f/u) 09/26/2024 Patient Outreach [address] [address] Kay Pedersen MD Care Management (C3CM- f/u call) 09/20/[address] [address] Kay Pedersen MD Care Management (C3CM- f/u call/ results) 09/14/2024 Orders Only [address] [address] aKy Pedersen MD Type 2 diabetes mellitus with other specified complication, without long-term current use of insulin (CMS/HCC) (Primary Dx) 09/14/2024 Orders Only [address] [address] Kay Pedersen MD Hypokalemia (Primary Dx) 09/14/2024 Results Follow-Up [address] [address] Kay Pedersen MD Albumin, Random Urine W/Creatinine, Comprehensive Metabolic Panel, Lipid Panel with Reflex to Direct LDL, Hemoglobin A1c 09/12/[address] [address] Marifer Pearson CNM chart prep 09/10/2024 1:45 PM EDT Office Visit [address] [phone] Kay Pedersen MD Hypertension, unspecified type (Primary Dx); Mixed hyperlipidemia; Prediabetes; Metabolic dysfunction-associated steatotic liver disease (MASLD); Seropositive rheumatoid arthritis ([facility]); Fibromyalgia; Long-term use of immunosuppressant medication; Moderate persistent asthma without complication; Obstructive sleep apnea syndrome; Anxiety and depression; Environmental allergies; Allergic rhinitis, unspecified seasonality, unspecified trigger; Osteopenia, unspecified location; Class 2 severe obesity due to excess calories with serious comorbidity and body mass index (BMI) of 39.0 to 39.9 in adult ([facility]); Hypokalemia 09/10/2024 Travel 09/06/[address] [address] Kay Pedersen MD chart prep 09/05/2024 Patient Outreach [address] [address] Kay Pedersen MD Care Management (C3CM- f/u [...] Description 01/11/2025 1:00 PM EST Medication Management [address] [address] Shadi Cabrera, PharmD [address] [place] [phone] 01/21/2025 3:45 PM EST Office Visit [address] [address] Kay Pedersen MD [address] [place] [phone] Health Maintenance Due Date Last Done Comments CT Colonography 1975 FIT DNA/Cologuard 1975 FIT 1975 FOBT 1975 Sigmoidoscopy 1975 Diabetes: Foot Exam 06/28/1985 Family Planning (PISQ) 06/28/1990 Hepatitis A Vaccines (2 of 2 - Risk 2-dose series) 09/09/2024 03/12/2024 COVID-19 Vaccine ( season) 2024 04/12/2022, 01/26/2021, 01/05/2021 Influenza Vaccine (#1) 2024 , 01/31/2023, 01/02/2021, Additional history exists Diabetes: Hemoglobin A1C 12/11/2024 025, 05/30/2024, 10/05/2023, Additional history exists Alcohol/Substance Use Screening 03/12/2025 03/12/2024 Disability Screening 06/05/2025 06/05/2024 Zoster Vaccines (1 of 2) 06/28/2025 Eye Exam 07/04/2025 07/05/2023, 06/07, 07/05/2023, Additional history exists Depression Screening 07/27/2025 07/27/2024, 07/28/19 25 SDOH Screening 07/27/2025 07/27/2024 Diabetes: Urine Protein Screening 09/10/2025 09/10/2024 Tobacco Screening 09/10/2025 09/10/2024 Lipid Panel 11/13/2025 11/13/2024, 07/0 09/2024, 05/30/2024, Additional history exists Mammogram 08/14/2026 08/14/2024, [...] Associated Diagnosis Comments BASIC METABOLIC PANEL Routine 11/28/2024 11:39 AM EDT VITAMIN B6 Routine 11/13/2024 11:08 AM EDT [...] Recently Relevant to Health Maintenance Results * (ABNORMAL) Basic Metabolic Panel (11/28/2024 11:39 AM EDT) Only the most recent of2 resultswithin the time period is included. Sodium 144 135 - 145 mmol/L [facility] Potassium 3.3 3.3 - 5.1 mmol/L [facility] Chloride 109(H) 96 - 108 mmol/L [facility] Carbon Dioxide 26 22 - 29 mmol/L [facility] Anion Gap 12 12 - 20 [facility] Urea Nitrogen (BUN) 6(L) 9 - 16 mg/dL [facility] Creatinine, Serum 0.67 0.5 - 1.4 mg/dL [facility] Estimated Glomerular Filt Rate >60 [facility] Comment:Chronic Kidney Disea se: Estimated GFR < 60 mL/min/1.14m5Ykowio Kidney Disease: Estimated GFR < 15 mL/min/1.73m2 Glucose 97 60 - 115 mg/dL [facility] Calcium 9.5 8.4 - 10.2 mg/dL [facility] 11/28/2024 11:3 9 AM EDT 11/28/2024 11:39 AM EDT us Generic External Data Provider LAB BLOOD ORDERAB LES Final Result [facility] [address] [place] [phone] * Vitamin B12 (Cobalamin) and Folate Panel, Serum (11/13/2024 11:08 AM EDT) Vitamin B12 277 200 - 900 pg/mL [facility] Comment:NORMAL 200-900 PG/ML INDETERMINATE 160-199 PG/ML DEFICIENT < 160 PG/ML Folate 8.3 > or = 4.0 ng/mL [facility] Comment:Reference Values:> o r = 4.0 [...] Final Result Performing Organization Address [facility]/ZIP Co de Phone Number [facility] [address] [place] [phone] * TSH with Reflex to Free T4 (11/13/2024 11:08 AM EDT) TSH reflex Free T4 1.82 0.32 - 4.0 uIU/mL [facility] 11/13/2024 11:0 8 AM EDT 11/13/2024 1:04 PM EDT us Generic External Data Provider LAB BLOOD ORDERAB LES Final Result Performing Organization Address City/[facility]/ZIP Co de Phone Number [facility] [address] [place] [phone] * Hepatic Function Panel (11/13/2024 11:08 AM EDT) Bilirubin, Total 0.4 0.0 - 1.0 mg/dL [facility] Bilirubin, Direct 0.1 0.0 - 0.5 mg/dL [facility] Aspartate Amino Transferase 25 5 - 31 U/L [facility] Alanine Aminotransferase 23 0 - 31 U/L [facility] Total Protein 7.1 6.5 - 8.0 g/dL [facility] Albumin Level 4.6 3.5 - 5.0 g/dL [facility] Alkaline Phosphatase 107 39 - 117 U/L [facility] 11/13/2024 11:0 8 AM EDT 11/13/2024 1:04 PM EDT us Kay Pedersen MD LAB BLOOD ORDERABLES Final Resul t [facility] [address] [place] [phone] * (ABNORMAL) Lipid Panel, Standard (11/13/2024 11:08 AM EDT) Triglycerides 151(H) <150 mg/dL [facility] Comment:Desirable Triglyceri de: less than 150 mg/dLBorderline High Triglyceride 150-199 mg/dLHigh Triglyceride: 200-499 mg/dLVery High Triglyceride: greater than or equal to 5OO mg/dL Cholesterol 144 <200 mg/dL [facility] Comment:Desirable Cholestero l: less than 200 mg/dLBorderline High Cholesterol: 200-239 mg/dLHigh Cholesterol: greater than 239 mg/dL LDL Cholesterol Calculated 75 <100 mg/dL [facility] Comment:Desirable LDL: less than 100 mg/dLNear Optimal/Above Optimal LDL: 110- 129 mg/dLBorderline High LDL: 130-159 mg/dLHigh LDL: 160-189 mg/dLVery High LDL: greater than or equal to 190 mg/dL HDL Cholesterol 39(L) >40 mg/dL [facility] Comment:Desirable HDL: great er than 40 mg/dL Note: This HDL assay may give artificially low results in patients with liver disease. 11/13/2024 11:0 8 AM EDT 11/13/2024 1:04 PM EDT us Kay Pedersen MD LAB BLOOD ORDERABLES Final Resul t [facility] [address] [place] [phone] * VITAMIN D 25-OH (D2 AND D3) (10/03/2024 9:13 AM EDT) Vitamin D, 25-OH, D2 <4 ng/mL [facility] Comment:This test was develo ped and its analytical performancecharacteristics have been determined by [employer] [place], [place]. It hasnot been cleared or approved by the U.S. Food and DrugAdministration. This assay has been validated pursuantto the CLIA regulations and is used for clinicalpurposes.THIS TEST WAS PERFORMED AT:[employer]/[id number] [place] [id number] EDMONDS MD,PHD Vitamin D, 25-OH, D3 37 ng/mL [facility] Comment:This test was develo ped and its analytical performancecharacteristics have been determined by [employer] [place], [place]. It hasnot been cleared or approved by the U.S. Food and DrugAdministration. This assay has been validated pursuantto the CLIA regulations and is used for clinicalpurposes. Vitamin D, 25-OH, Total 37 30 - 100 ng/mL [facility] Comment:Vitamin D, 25-Hydrox y reports [...] = 30 ng/mL.For additional information, please refer tohttp://[employer].Borqs/faq/PWY121(This link is being provided for informational/educational purposes only.) 10/03/2024 9:13 AM EDT 10/03/2024 11:23 AM EDT us Generic External Data Provider LAB BLOOD ORDERAB LES Final Result [facility] [address] [place] [phone] * T-SPOT??.TB (10/03/2024 9:13 AM EDT) [facility] T Spot TB Negative Negative [facility] Comment:A negative test resu lt [...] as aquantitative test. TS PANEL A 0 [facility] TS PANEL B 0 [facility] Negative Control Passed [facility] Positive Control Passed [facility] Comment:For additional infor mation, please refer tohttp://[employer]/faq/KHX354(This link is being provided for informational/educational purposes only.)THIS TEST WAS PERFORMED AT:[employer]/[id number] [place] [phone] EDMONDS MD,PHD 10/03/2024 9:13 AM EDT 10/03/2024 11:18 AM EDT Generic External Data Provider LAB BLOOD ORDERAB LES Final Result Performing Organization Address [facility] de Phone Number [facility] [address] [place] [phone] * Hepatitis Panel, General (10/03/2024 9:13 AM EDT) Pathologist [facility] Hepatitis A IgM Nonreactive Nonreactive [facility] Comment:IgM antibodies to MCDANIEL V not detected; does not exclude earlyacute or recovered HAV infection. ~Hepatitis B Surface Antibody NONREACTIVE Nonreactive [facility] Comment:Nonreactive: < 8.00 mIU/mL Hepatitis B Core Antibody Nonreactive Nonreactive [facility] Hepatitis C Antibody Nonreactive Nonreactive [facility] Comment:Antibodies to HCV no t detected; does not exclude early acuteHCV infection. Hepatitis B Surface Ag Negative Negative [facility] 10/03/2024 9:13 AM EDT 10/03/2024 11:23 AM EDT Generic External Data Provider LAB BLOOD ORDERAB LES Final Result Performing Organization Address [facility] de Phone Number [facility] [address] [place] [phone] * (ABNORMAL) CBC auto differential (10/03/2024 9:13 AM EDT) Pathologist [facility] White Blood Count 8.1 4.8 - 10.8 X10*3/uL [facility] Red Blood Count 5.61(H) 4.20 - 5.50 X10*6/uL [facility] Hemoglobin 15.3 12.0 - 16.0 g/dl [facility] Hematocrit 47.3(H) 37.0 - 47.0 % [facility] Mean Corpuscular Volume 84.3 80.0 - 98.0 fL [facility] Mean Corpuscular Hemoglobin 27.3 27.0 - 33.0 pg [facility] Mean Corpuscular HGB Conc 32.3 31.0 - 35.0 g/dl [facility] Red Cell Distribution Width 13.2 11.0 - 16.0 % [facility] Platelet Count 264 160 - 400 X10*3/uL [facility] Mean Platelet Volume 11.9 9.4 - 12.3 fL [facility] Neutrophils Percent Auto 38.3(L) 45 - 73 % [facility] Imm Gran Pct Auto 0.2 0.0 - 0.4 % [facility] Lymphocytes Percent Auto 45.9(H) 20 - 40 % [facility] Monocytes Percent Auto 6.2 2 - 11 % [facility] Eosinophils Percent Auto 8.4(H) 0 - 4 % [facility] Basophils Percent Auto 1.0 0 - 2 % [facility] NRBC Pct Auto 0.0 0.0 - 0.2 /100WBC [facility] Neutrophils Absolute Auto 3.1 2.0 - 8.3 x10*3/uL [facility] Imm Gran Abs Auto 0.02 0.00 - 0.03 X10*3/uL [facility] Lymphocytes Absolute Auto 3.7 1.2 - 4.9 X10*3/uL [facility] Monocytes Absolute Auto 0.5 0.1 - 1.2 X10*3/uL [facility] Eosinophils Absolute Auto 0.7(H) 0.0 - 0.4 X10*3/uL [facility] Basophils Absolute Auto 0.1 0.0 - 0.2 X10*3/uL [facility] NRBC Abs Auto 0.000 0.0 - 0.012 X10*3/uL [facility] 10/03/2024 9:13 AM EDT 10/03/2024 11:18 AM EDT Generic External Data Provider LAB BLOOD ORDERAB LES Final Result Performing Organization Address [facility] de Phone Number [facility] [address] [place] [phone] * Sed Rate by Modified Sadiren (10/03/2024 9:13 AM EDT) [facility] Erythrocyte Sedimentation Rate 6 0 - 20 MM/HR [facility] Comment:Patients with polycy themia and many hemoglobin abnormalitiesmay have depressed sed rates whereas patients with anemiamay have elevated sed rates. 10/03/2024 9:13 AM EDT 10/03/2024 11:18 AM EDT Generic External Data Provider LAB BLOOD ORDERAB LES Final Result Performing Organization Address [facility] Phone Number [facility] [address] [place] [phone] * C-reactive Protein (10/03/2024 9:13 AM EDT) [facility] C Reactive Protein 0.44 < or = 0.50 mg/dL [facility] 10/03/2024 9:13 AM EDT 10/03/2024 11:23 AM EDT Generic External Data Provider LAB BLOOD ORDERAB LES Final Result Performing Organization Address [facility] de Phone Number [facility] [address] [place] [phone] * (ABNORMAL) Comprehensive Metabolic Panel (10/03/2024 9:13 AM EDT) Only the most recent of2 resultswithin the time period is included. [facility] Sodium 141 135 - 145 mmol/L [facility] Potassium 3.2(L) 3.3 - 5.1 mmol/L [facility] Chloride 107 96 - 108 mmol/L [facility] Carbon Dioxide 23 22 - 29 mmol/L [facility] Anion Gap 14 12 - 20 [facility] Urea Nitrogen (BUN) 9 9 - 16 mg/dL [facility] Creatinine, Serum 0.84 0.5 - 1.4 mg/dL [facility] Estimated Glomerular Filt Rate >60 [facility] Comment:Chronic Kidney Disea se: Estimated GFR < 60 mL/min/1.42j9Olovqo Kidney Disease: Estimated GFR < 15 mL/min/1.73m2 Glucose 125(H) 60 - 115 mg/dL [facility] Calcium 9.4 8.4 - 10.2 mg/dL [facility] Bilirubin, Total 0.3 0.0 - 1.0 mg/dL [facility] Aspartate Amino Transferase 37(H) 5 - 31 U/L [facility] Alanine Aminotransferase 39(H) 0 - 31 U/L [facility] Total Protein 7.0 6.5 - 8.0 g/dL [facility] Albumin Level 4.5 3.5 - 5.0 g/dL [facility] Alkaline Phosphatase 126(H) 39 - 117 U/L [facility] 10/03/2024 9:13 AM EDT 10/03/2024 11:23 AM EDT us Generic External Data Provider LAB BLOOD ORDERAB LES Final Result [facility] [address] [place] [phone] * (ABNORMAL) Lipid Panel with Reflex to Direct LDL (09/10/2024 2:04 PM EDT) Triglycerides 273(H) <150 mg/dL [facility] Comment:Desirable Triglyceri de: less than 150 mg/dLBorderline High Triglyceride 150-199 mg/dLHigh Triglyceride: 200-499 mg/dLVery High Triglyceride: greater than or equal to 5OO mg/dL Cholesterol 226(H) <200 mg/dL [facility] Comment:Desirable Cholestero l: less than 200 mg/dLBorderline High Cholesterol: 200-239 mg/dLHigh Cholesterol: greater than 239 mg/dL LDL Cholesterol Calculated 121(H) <100 mg/dL [facility] Comment:Desirable LDL: less than 100 mg/dLNear Optimal/Above Optimal LDL: 110- 129 mg/dLBorderline High LDL: 130-159 mg/dLHigh LDL: 160-189 mg/dLVery High LDL: greater than or equal to 190 mg/dL HDL Cholesterol 51 >40 mg/dL [facility] Comment:Desirable HDL: great er than 40 mg/dL Note: This HDL assay may give artificially low results in patients with liver disease. Blood 09/10/2024 2:04 PM EDT 09/10/2024 5:08 PM EDT us Kay Pedersen MD LAB BLOOD ORDERABLES Final Resul t Performing Organization Address [facility] de Phone Number [facility] [address] [place] [phone] * Albumin, Random Urine W/Creatinine (09/10/2024 2:04 PM EDT) Creatinine, Urine 53.30 mg/dL [facility] Microalbumin Urine 12.0 mg/L [facility] Microalbum Creatinine Ratio Ur 22.5 <30 ug/mg cr [facility] Comment:Albumin/Creatinine R atio Reference Ranges: Normal: < 30 ug/mg creatinine Microalbuminuria: 30 - 300 ug/mg creatinineClinical Albuminuria: > 300 ug/mg creatinine Urine 09/10/2024 2:04 PM EDT 09/10/2024 4:12 PM EDT us Kay Pedersen MD LAB URINE ORDERABLES Final Resul t Performing Organization Address [facility] Co de Phone Number [facility] [address] [place] [phone] * (ABNORMAL) Hemoglobin A1c (09/10/2024 2:04 PM EDT) Hemoglobin A1c 6.9(H) <6.0 % [facility] Comment:Hemoglobin A1C Refer ence Range Adults: 4.8 - 6.0 % Non diabetic: < 6.0 % Goal: < 7.0 %Additional Action Suggested: > 8.0 %Note: Hemoglobin A1c results are invalid for patients with abnormal amounts of HbF. Blood transfusions may impact the HbA1c concentration in the patient sample. Estimated Average Glucose 151 mg/dL [facility] Comment:eAG = Estimated ave rage glucose which is %A1C expressed asaverage glucose, using the formula of the W5M-NhziqheBqnayxh Glucose study (ADAG), Diabetes Care, Vol.31,#8,2007 Blood Venous blood specimen / Unknown 09/10/2024 2:04 PM EDT 09/10/2024 5:08 PM EDT us Kay Pedersen MD LAB BLOOD ORDERABLES Final Resul t [facility] [address] [place] [address] [phone] * BI Mammogram Screening Tomosynthesis Bilateral (08/14/2024 12:45 PM EDT) Anatomical Region Laterality Modality Breast Bilateral Mammography 08/14/2024 12:4 5 PM EDT Narrative 08/21/2024 5:53 PM EDT [address] [place] [address] Mammography Report Signed Patient: Mariluz Pisano MR#: [id number] : 1975 Acct:[id number] Age/Sex: 49 / F ADM Date: 08/14/24 Loc: [facility] Attending Dr: Kay Pedersen MD Ordering Physician: Kay Pedersen MD Results: 1Negative Date of Service: 08/14/24 Follow Up: 1 Year From Orig inal Mammogram Procedure(s): MM tomosynthesis screening BI Accession Number(s): [id number] cc: Kay Pedersen MD EXAMINATION: MM SCREENING [...] 08/21/24 1751 DD/ 1245 TD/TT: 08/14/24 1255 Agri Business Agent: Procedure Note Donotuseinterpreter, Image - 08/21/[facility] [address] [place], [place] [address] Mammography Report Signed Patient: Debo Pisano#: M [id number] : 1975Acct:[id number] Age/Sex: 49 / FADM Date: 08/14/24 Loc: [facility] Attending Dr: Kay Pedersen MD Ordering Physician: Kay Pedersen MDResults: 1Negative Date of Service: 08/14/24Follow Up: 1 Year From Orig inal Mammogram Procedure(s): MM tomosynthesis screening BI Accession Number(s): [id number] cc: Kay Pedersen MD EXAMINATION: MM SCREENING [...] 08/21/24 1751 DD/ 1245 TD/TT: 08/14/24 1255 Agri Business Agent: Kay Pedersen MD IMG BI PROCEDURES Final [...] of detection of this assay. The [employer] HIV Ag/Ab Combo assay result and supplemental assay results should be interpreted in conjunction with the patient's clinical presentation, history and other laboratory results. If the results are inconsistent with clinical evidence, additional testing is suggested to confirm the result. 04/18/2019 11:0 4 AM EST Tanner Reyes MD HISTORICAL/NON ORDERABLE LAB S Final Result [facility] [address] [place] [address], from Last 3 Months or Most Recently Relevant to Health Maintenance Insurance [employer] C3 Care Teams Child And Family Therapist Relationship Specialty Start Date End Date Kay Pedersen MD [address] [place], [place] [phone] PCP - General Family Medicine 09/10/22 Shadi Cabrera, PharmD [address] [place] [address] Pharmacist Internal Medicine 05/31/23 Garrett Gilbert MD [address] [place] [address] [place] [address] Nephrology 06/18/24 Adryan Werner MD Beehive Kiln Supervisor 06/18/24 Kerry Gallo Rheumatology 06/18/24
--- OUTSIDE RECORDS SUMMARY | 2024-11-28 14:26 | XMS_ITS | Encounter Summary ---
Author Organization [employer] Address [address] 7t [place] [address] Care Team Providers Care Dental Chairside Assistant Name Role Phone Kay Pedersen MD Primary Care Provider [phone] Shadi Cabrera PharmD Unavailable [phone] Garrett Gilbert MD Unavailable [phone] Reason for Visit * Reason Comments Med Refill Encounter Details Date Type Department Care Team (Late st Contact Info) Description 06/30/2023 Refill [facility] 230 [place], [place] [phone] Kay Pedersen MD [address] [place], [place] [phone] Earache Social History Tobacco Use Types Packs/Day [...] Description 01/11/2025 1:00 PM EST Medication Management [address] [address] Shadi Cabrera PharmD [address] [place] [address] 01/21/2025 3:45 PM EST Office Visit [address] [address] Kay Pedersen MD [address] [place] [address] documented as of this encounter Goals Goal [...] documented as of this encounter Care Teams Dental Chairside Assistant Relationship Specialty Start Date End Date Kay Pedersen MD [address] [place] [address] PCP - General Family Medicine 09/10/22 Shadi Cabrera, CatalinaD [address] [place] [address] Pharmacist Internal Medicine 05/31/23 Garrett Gilbert MD [address] [place] [address] [address] [place] [address] Nephrology 06/18/24 Adryan Werner MD Chief Console Operator 06/18/24 Kerry Gallo Rheumatology 06/18/24 documented as of this encounter
--- OUTSIDE RECORDS SUMMARY | 2024-11-28 14:26 | XMS_ITS | Encounter Summary ---
Author Organization [employer] Address [address] [facility] [address] 7t [place] [address] Care Team Providers Care Floor Sander Name Role Phone Kay Pedersen MD Primary Care Provider [phone] Shadi Cabrera PharmD Unavailable [phone] Garrett Gilbert MD Unavailable [phone] Encounter Details Date Type Department Care Team ([facility] Contact Info) Description 11/28/2024 Orders Only GENERIC EXTERNAL DATA DEPARTMENT Provider, Generic External Data Social History Tobacco Use Types Packs/Day Years [...] the past 12 months, has t he [employer], gas, oil or water company threatened to [...] Description 01/11/2025 1:00 PM EST Medication Management [address] [address] Shadi Cabrera, PharmD [address] [place] [address] 01/21/2025 3:45 PM EST Office Visit [address] [phone] Kay Pedersen MD [address] [place] [address] [phone] documented as of this encounter Goals Goal Patient Goal Type Associated Problems Recent Progress Patient-Stated? Author Blood Pressure < 140/90 Blood Pressure 135/99( 025 1:19 PM EDT) No Shadi Cabrera, PharmD documented as of this encounter Procedures Procedure Name Priority Date/Time Associated Diagnosis Comments BASIC METABOLIC PANEL Routine 11/28/2024 11:39 AM EDT documented in this encounter Results * (ABNORMAL) Basic Metabolic Panel (11/28/2024 11:39 AM EDT) Sodium 144 135 - 145 mmol/L [facility] Potassium 3.3 3.3 - 5.1 mmol/L [facility] Chloride 109(H) 96 - 108 mmol/L [facility] Carbon Dioxide 26 22 - 29 mmol/L [facility] Anion Gap 12 12 - 20 [facility] Urea Nitrogen (BUN) 6(L) 9 - 16 mg/dL [facility] Creatinine, Serum 0.67 0.5 - 1.4 mg/dL [facility] Estimated Glomerular Filt Rate >60 [facility] Comment:Chronic Kidney Disea se: Estimated GFR < 60 mL/min/1.15h4Gdxyac Kidney Disease: Estimated GFR < 15 mL/min/1.73m2 Glucose 97 60 - 115 mg/dL [facility] Calcium 9.5 8.4 - 10.2 mg/dL [facility] 11/28/2024 11:3 9 AM EDT 11/28/2024 11:39 AM EDT us Generic External Data Provider LAB BLOOD ORDERAB LES Final Result Performing Organization Address City/State/[facility] Co de Phone Number [facility] [address] [place] [address] [phone] documented in this encounter Visit Diagnoses Not on filedocumented in this encounter Additional Health Concerns Assessment Noted Time PHQ-9 Depression Total Score: 5 07/28/19 25 3:55 PM EDT documented as of this encounter Care Teams Floor Sander Relationship Specialty Start Date End Date Kay Pedersen MD [address] [place] [address] PCP - General Family Medicine 09/10/22 Shadi Cabrera, PharmD [address] [place] [address] Pharmacist Internal Medicine 05/31/23 [address] MD [address] [place] [address] Nephrology 06/18/24 Adryan Werner MD Access Nurse 06/18/24 Kerry Gallo Rheumatology 06/18/24 documented as of this encounter
--- OUTSIDE RECORDS SUMMARY | 2024-11-28 14:26 | XMS_ITS | Encounter Summary ---
Author Organization [employer] Address [address] [facility] [address] [address] 7t [place] [address] Care Team Providers Care Pre Certification Specialist Name Role Phone Kay Pedersen MD Primary Care Provider Shadi Cabrera PharmD Unavailable [phone] Garrett Gilbert MD Unavailable [phone] Encounter Details Date Type Department Care Team (Late st Contact Info) Description 10/27/2023 Orders Only [facility] [address] [place], [place] [phone] Kay Pedersen MD [address] [place], [place] [phone] Hypokalemia (Primary Dx) Social History Tobacco Use [...] 01/11/2025 1:00 PM EST Medication Management [address] [address] Shadi Cabrera, PharmD [address] [place] [address] 01/21/2025 3:45 PM EST Office Visit [address] [address] Kay Pedersen MD [address] [place] [address] documented as of this encounter Goals Goal [...] EDT) Potassium 3.3 3.3 - 5.1 mmol/L [facility] Blood Venous blood specimen / Unknown 11/15/2023 11:00 AM EDT 11/15/2023 1:15 PM EDT Kay Pedersen MD LAB BLOOD ORDERABLES Final Resul t Performing Organization Address [facility]/ZIP Co de Phone Number [facility] [address] [place] [address] [phone] * (ABNORMAL) Basic Metabolic Panel (11/01/2023 1:26 PM EDT) Sodium 142 135 - 145 mmol/L [facility] Potassium 3.2(L) 3.3 - 5.1 mmol/L [facility] Chloride 106 96 - 108 mmol/L [facility] Carbon Dioxide 24 22 - 29 mmol/L [facility] Anion Gap 15 12 - 20 [facility] Urea Nitrogen (BUN) 10 9 - 16 mg/dL [facility] Creatinine, Serum 0.80 0.5 - 1.4 mg/dL [facility] Estimated Glomerular Filt Rate >60 [facility] Comment:NOTE: For -Am erican individuals, multiply the result by 1.210.Chronic Kidney Disease: Estimated GFR < 60 mL/min/1.11n4Efzslo Kidney Disease: Estimated GFR < 15 mL/min/1.73m2 Glucose 164(H) 60 - 115 mg/dL [facility] Calcium 10.1 8.4 - 10.2 mg/dL [facility] Blood Venous blood specimen / Unknown 11/01/2023 1:26 PM EDT 11/01/2023 4:08 PM EDT Kay Pedersen MD LAB BLOOD ORDERABLES Final Resul t [facility] [address] [place] [address] [phone] documented in this encounter Visit Diagnoses Diagnosis Hypokalemia- Primary Hypopotassemia documented in this encounter Additional Health Concerns Assessment Noted Time PHQ-9 Depression Total Score: 8 03/14/19 24 9:41 AM EST documented as of this encounter Care Teams Pre Certification Specialist Relationship Specialty Start Date End Date Kay Pedersen MD [address] [place] [address] PCP - General Family Medicine 09/10/22 Shadi Cabrera, CatalinaD [address] [place] [address] Pharmacist Internal Medicine 05/31/23 Garrett Gilbert MD [address] [place] [address] Drive [address] [place] [address] Nephrology 06/18/24 Adryan Werner MD Shop Tech 06/18/24 Kerry Gallo Rheumatology 06/18/24 documented as of this encounter
--- OUTSIDE RECORDS SUMMARY | 2024-11-28 14:26 | XMS_ITS | Encounter Summary ---
Author Organization [employer] Address [address] 7t [place] [address] Care Team Providers Care Research Laboratory Technician Name Role Phone Kay Pedersen MD Primary Care Provider [phone] Shadi Cabrera PharmD Unavailable [phone] Garrett Gilbert MD Unavailable [phone] Encounter Details Date Type Department Care Team (Late st Contact Info) Description 06/07/2023 Orders Only [facility] 230 [place], [place] [phone] Kay Pedersen MD [address] [place], [place] [phone] Social History Tobacco Use Types Packs/Day Years [...] Description 01/11/2025 1:00 PM EST Medication Management [address] [address] Shadi Cabrera PharmD [address] [place] [address] 01/21/2025 3:45 PM EST Office Visit [address] [address] Kay Pedersen MD [address] [place] [address] documented as of this encounter Goals Goal [...] as of this encounter Care Teams Research Laboratory Technician Relationship Specialty Start Date End Date Kay Pedersen MD [address] [place] [address] PCP - General Family Medicine 09/10/22 Shadi Cabrera PharmD [address] [place] [address] [phone] Pharmacist Internal Medicine 05/31/23 Garrett Gilbert MD [address] [place] [address] Drive [address] [place] [address] Nephrology 06/18/24 Adryan Werner MD Java Swing Developer 06/18/24 Kerry Gallo Rheumatology 06/18/24 documented as of this encounter
== END 2024-11-28 11:16 | disposition home or self-care (01) ==
LOC: HO.LAB 11:15
PROVIDERS: PCP Family Medicine; Visit Provider Internal Medicine Hypertension Specialist
DX: E87.6 Hypokalemia (principal)
CPT/HCPCS: 36415; 80048

== ENCOUNTER 2024-11-29 09:24 | Outpatient (AMB) | payer MEDICAID, SELFPAY ==
--- NOTE | 2024-11-29 09:34 | HO.NEPHOV_ITS ---
Vital Signs 11/29/24 09:35 Height 4 ft 11 in BP 134/86 Blood Pressure Location Rt brachial Position Sitting Intake Visit Reasons: 2 days f/u w/ labs Marketing Secretary Required: Yes Marketing Secretary Name: Nae [phone] Accompanied by: Self / Same As Patient Allergies penicillin G (PENICILLIN G) Allergy (Severe, Verified 11/29/24 09:36) DIZZINESS tramadol Allergy (Severe, Verified 11/29/24 09:36) Vomiting and sweats Medication List - Last Reconciled 11/29/24 by Garrett Gilbert MD acetaminophen (Tylenol) 650 mg PO Q6H PRN alcohol swabs (Alcohol Prep Pads) pad topical amlodipine 10 mg PO DAILY aripiprazole 20 mg PO QAM atorvastatin 80 mg PO QAM blood sugar diagnostic (FreeStyle Lite Strips) As directed budesonide-formoterol 160-4.5 mcg/actuation (Symbicort) 2 puffs inhalation BID hydroxyzine HCl 25 mg PO DAILY PRN lancets (TRUEplus Lancets) As directed leflunomide 10 mg PO QAM losartan 100 mg PO QAM metformin ER 500 mg PO DAILY montelukast 10 mg PO DAILY omeprazole 40 mg (2 x 20 mg) PO QAM 90 days potassium chloride ER 20 mEq PO DAILY sertraline 100 mg PO DAILY HPI Comments Details: - The patient is a 49-year-old female presenting with hypertension and hypok alemia. - Hypertension: Managed with amlodipine and losartan, - Hypokalemia: Treated with potassium supplements, levels improved. In the past plasma renin and aldosterone levels were normal. No alkalosis. [facility] Medical History Diabetes mellitus Encounter for screening for osteoporosis Irritable bowel Esophagitis Early satiety Thoracic degenerative disc disease Back pain Asthma Fibromyalgia Sleep apnea Seropositive rheumatoid arthritis Arthritis Diarrhea Surgical History History of esophagogastroduodenoscopy (EGD) History of laparoscopic cholecystectomy Hx of tubal ligation History of partial hysterectomy Hx of endoscopy History of colonoscopy Family History Father No problems noted. Mother History of high blood pressure Social History Household Members: None Housing: Apartment Do you presently have visiting nurse or other home services: No Alcohol intake: current Alcohol intake frequency: holidays/special occasions only Alcohol type: beer and wine Patient Tobacco Use Status: Former Tobacco user Tobacco use type: Cigarette e-Cigarette/Vaping Use: Never Used Substance Use Type: Marijuana Advance Directives Date on File: 09/12/23 service: No Current occupational status: disabled Physical Exam Vital Signs: Last Vital Signs BP 134/86 11/29/24 09:35 Comfortable Neck supple no JVD. Lungs entry equal no rales. Heart S1-S2 heard no gallop or rub. Abdomen soft nontender. Neuro alert awake oriented. No asterixis. Extremities no edema. Results Reviewed Nephrology Results: Hgb, (12.0-16.0) 15.5 g/dl 11/13/24 WBC, (4.8-10.8) 8.3 X10*3/uL 11/13/24 Plt Count, (160-400) 273 X10*3/uL 11/13/24 Sodium, (135-145) 144 mmol/L 11/28/24 Potassium, (3.3-5.1) 3.3 mmol/L 11/28/24 Chloride, (96-108) 109 mmol/L H 11/28/24 Carbon Dioxide, (22-29) 26 mmol/L 11/28/24 BUN, (9-16) 6 mg/dL L 11/28/24 Creatinine, (0.5-1.4) 0.67 mg/dL 11/28/24 Calcium, (8.4-10.2) 9.5 mg/dL 11/28/24 Urine Protein, (Neg-Trace) Trace mg/dL 11/13/24 Urine Creatinine 53.30 mg/dL 09/10/24 Renal US 09/09/23 Assessment & Plan Assessment & Plan (1) ELISA (acute kidney injury): Code(s): N17.9 - Acute kidney failure, unspecified Category: Medical Plan 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 Peak creatinine was 5.5 mg/dL.. Vanco induced tubular injury is gradually improving. Serum creatinine is down to baseline of 0.67 mg. No signs or symptoms of uremia. Fluid status seems acceptable. Hypokalemia - Continue potassium supplementation and dietary adjustments. In the past plasma renin and aldosterone levels were normal. No alkalosis Continue potassium chloride 20 mEq a day Encouraged to increase potassium rich foods including oranges - Recheck potassium levels in one month. Hypertension Blood pressure well - Continue amlodipine and losartan. - Monitor blood pressure regularly. . Diabetes Mellitus - Maintain dietary restrictions. Orders: Orders Basic Metabolic Panel 4 Weeks E87.6 - Hypokalemia Coding Level of Care Code Est Pt Level 4 (50319) Diagnoses ELISA (acute kidney injury) N17.9
[2024-11-29 09:35] VITALS: BP 134/86
== END 2024-11-29 09:55 | disposition home or self-care (01) ==
LOC: HO.HKA 09:24
PROVIDERS: PCP Family Medicine; Visit Provider Internal Medicine Hypertension Specialist
DX: N17.9 Acute kidney failure, unspecified (principal)
CPT/HCPCS: 99214

== ENCOUNTER → 2024-11-29 09:24 | Outpatient (BNVA) | payer MEDICAID, SELFPAY | PROVIDERS: PCP Family Medicine; Visit Provider Internal Medicine Hypertension Specialist | DX: I10 Essential (primary) hypertension (principal); E11.9 Type 2 diabetes mellitus without complications; N17.9 Acute kidney failure, unspecified; E87.6 Hypokalemia | CPT/HCPCS: 99212 ==

== ENCOUNTER 2024-12-20 10:02 | Outpatient (REF) | payer MEDICAID, SELFPAY ==
[2024-12-20 11:32] LABS: Anion Gap 15 (12-20); Blood Urea Nitrogen 12 mg/dL (9-16); Calcium 9.8 mg/dL (8.4-10.2); Carbon Dioxide 25 mmol/L (22-29); Chloride 112 mmol/L (96-108); Estimated Glomerular Filt Rate > 60; Potassium 3.9 mmol/L (3.3-5.1); Sodium 148 mmol/L (135-145)
--- OUTSIDE RECORDS SUMMARY | 2024-12-20 11:59 | XMS_ITS | Encounter Summary ---
Author Organization [employer] Address [address] [facility] [address] 7t [place] [address] Care Team Providers Care Bleacher Pulp Name Role Phone Kay Pedersen MD Primary Care Provider [phone] Shadi Cabrera PharmD Unavailable [phone] Garrett Gilbert MD Unavailable [phone] Reason for Visit * Reason Comments Med Refill Encounter Details Date Type Department Care Team (Late st Contact Info) Description 06/30/2023 Refill [facility] 230 [place], [place] [phone] Kay Pedersen MD [address] [place], [place] [phone] Earache Social History Tobacco Use Types Packs/Day [...] Description 01/11/2025 1:00 PM EST Medication Management [address] [address] Shadi Cabrera PharmD [address] [place] [address] 01/21/2025 3:45 PM EST Office Visit [address] [address] Kay Pedersen MD [address] [place] [address] documented as of this encounter Goals Goal [...] documented as of this encounter Care Teams Bleacher Pulp Relationship Specialty Start Date End Date Kay Pedersen MD [address] [place] [address] PCP - General Family Medicine 09/10/22 Shadi Cabrera, CatalinaD [address] [place] [address] Pharmacist Internal Medicine 05/31/23 Garrett Gilbert MD [address] [place] [address] Drive [address] [place] [address] Nephrology 06/18/24 Adryan Werner MD Tentering Machine Off Bearer 06/18/24 Kerry Gallo Rheumatology 06/18/24 documented as of this encounter
--- OUTSIDE RECORDS SUMMARY | 2024-12-20 11:59 | XMS_ITS | Encounter Summary ---
Author Organization [employer] Address [address] [facility] [address] 7t [place] [address] Care Team Providers Care Form Setter Steel Forms Name Role Phone Kay Pedersen MD Primary Care Provider [phone] Shadi Cabrera PharmD Unavailable [phone] Garrett Gilbert MD Unavailable [phone] Reason for Visit * Reason Comments Med Refill Encounter Details Date Type Department Care Team (Late st Contact Info) Description 06/22/2023 Refill [facility] 230 [place], [place] [phone] Kay Pedersen MD 230 [place], [place] [phone] Earache; Moderate persistent asthma without complication Social [...] Description 01/11/2025 1:00 PM EST Medication Management [address] [address] Shadi Cabrera PharmD [address] [place] [address] 01/21/2025 3:45 PM EST Office Visit [address] [address] Kay Pedersen MD [address] [place] [address] documented as of this encounter Goals Goal [...] documented as of this encounter Care Teams Form Setter Steel Forms Relationship Specialty Start Date End Date Kay Pedersen MD [address] [place] [address] PCP - General Family Medicine 09/10/22 Shadi Cabrera PharmD [address] [place] [address] Pharmacist Internal Medicine 05/31/23 Garrett Gilbert MD [address] [place] [address] Drive [address] [place] [address] Nephrology 06/18/24 Adryan Werner MD Photoengraving Proofer Apprentice 06/18/24 Kerry Gallo Rheumatology 06/18/24 documented as of this encounter
--- OUTSIDE RECORDS SUMMARY | 2024-12-20 11:59 | XMS_ITS | Encounter Summary ---
Author Organization [employer] Address [address] [facility] [address] 7t [place] [address] Care Team Providers Care Box Nailer Name Role Phone Kay Pedersen MD Primary Care Provider [phone] Shadi Cabrera PharmD Unavailable [phone] Garrett Gilbert MD Unavailable Encounter Details Date Type Department Care Team ([facility] st Contact Info) Description 07/05/2024 Orders Only [facility] 230 [place], [place] [phone] Kay Pedersen MD 230 [place], [place] [phone] Pneumonia of right middle lobe due to [...] 01/11/2025 1:00 PM EST Medication Management [address] [address] Shadi Cabrera, PharmD [address] [place] [address] 01/21/2025 3:45 PM EST Office Visit [address] [address] Kay Pedersen MD 230 [place] [address] Scheduled Orders Name Type Priority Associated Diagnoses [...] documented as of this encounter Care Teams Box Nailer Relationship Specialty Start Date End Date Kay Pedersen MD [address] [place] [address] PCP - General Family Medicine 09/10/22 Shadi Cabrera, Solange [address] [place] [address] Pharmacist Internal Medicine 05/31/23 Garrett Gilbert MD [address] [place] [address] Nephrology 06/18/24 Adryan Werner MD Water Quality Manager 06/18/24 Kerry Gallo Rheumatology 06/18/24 documented as of this encounter
--- OUTSIDE RECORDS SUMMARY | 2024-12-20 11:59 | XMS_ITS | Encounter Summary ---
Author Organization [employer] Address [address] 7t [place] [address] Care Team Providers Care Industrial Pharmacist Name Role Phone Kay Pedersen MD Primary Care Provider [phone] Shadi Cabrera PharmD Unavailable [phone] Garrett Gilbert MD Unavailable [phone] Encounter Details Date Type Department Care Team ([facility] Contact Info) Description 11/13/2024 Results Follow-Up [facility] 230 [place], [place] [phone] Kay Pedersen MD 230 [place], [place] [phone] Basic Metabolic Panel Social History Tobacco Use [...] Description 01/11/2025 1:00 PM EST Medication Management [address] [address] Shadi Cabrera, PharmD [address] [place] [address] 01/21/2025 3:45 PM EST Office Visit [address] [address] Kay Pedersen MD [address] [place] [address] documented as of this encounter Goals Goal [...] documented as of this encounter Care Teams Industrial Pharmacist Relationship Specialty Start Date End Date Kay Pedersen MD [address] [place] [address] PCP - General Family Medicine 09/10/22 Shadi Cabrera, CatalinaD [address] [place] [address] Pharmacist Internal Medicine 05/31/23 Garrett Gilbert MD [address] [place] [address] [address] [place] [address] Nephrology 06/18/24 Adryan Werner MD Suppression Crew Leader 06/18/24 Kerry Gallo Rheumatology 06/18/24 documented as of this encounter
--- OUTSIDE RECORDS SUMMARY | 2024-12-20 11:59 | XMS_ITS | Encounter Summary ---
Author Organization [employer] Address [address] [facility] [address] [place] [address] Care Team Providers Care Handbag Framer Name Role Phone Kay Pedersen MD Primary Care Provider [phone] Shadi Cabrera PharmD Unavailable [phone] Garrett Gilbert MD Unavailable [phone] Encounter Details Date Type Department Care Team (Late st Contact Info) Description 06/07/2023 Orders Only [facility] MEDICINE [address] [place], [place] [phone] Kay Pedersen MD [address] [place], [place] [phone] Social History Tobacco Use Types Packs/Day Years [...] 01/11/2025 1:00 PM EST Medication Management [address] [address] Shadi Cabrera PharmD [address] [place] [phone] 01/21/2025 3:45 PM EST Office Visit [address] [address] Kay Pedersen MD [address] [place] [phone] documented as of this encounter Goals Goal [...] documented as of this encounter Care Teams Handbag Framer Relationship Specialty Start Date End Date Kay Pedersen MD [address] [place] [phone] PCP - General Family Medicine 09/10/22 Shadi Cabrera PharmD [address] [place] [address] [phone] Pharmacist Internal Medicine 05/31/23 Garrett Gilbert MD [address] [place] [address] [address] [place] [phone] Nephrology 06/18/24 Adryan Werner MD Fruit I Farmworker 06/18/24 Kerry Gallo Rheumatology 06/18/24 documented as of this encounter
--- OUTSIDE RECORDS SUMMARY | 2024-12-20 12:00 | XMS_ITS | Encounter Summary ---
Author Organization [employer] Address [address] [facility] [address] [place] [address] Care Team Providers Care Machine Tool Technician Instructor Name Role Phone Kay Pedersen MD Primary Care Provider [phone] Shadi Cabrera PharmD Unavailable [phone] Garrett Gilbert MD Unavailable [phone] Encounter Details Date Type Department Care Team (Late st Contact Info) Description 10/27/2023 Orders Only [facility] MEDICINE [address] [place], [place] [phone] Kay Pedersen MD [address] [place], [place] [phone] Hypokalemia (Primary Dx) Social History Tobacco Use [...] 01/11/2025 1:00 PM EST Medication Management [address] [address] Shadi Cabrera, PharmD [address] [place] [phone] 01/21/2025 3:45 PM EST Office Visit [address] [address] Kay Pedersen MD [address] [place] [phone] documented as of this encounter Goals Goal [...] EDT) Potassium 3.3 3.3 - 5.1 mmol/L [facility] Blood Venous blood specimen / Unknown 11/15/2023 11:00 AM EDT 11/15/2023 1:15 PM EDT Kay Pedersen MD LAB BLOOD ORDERABLES Final Resul t Performing Organization Address [facility]/ZIP Co de Phone Number [facility] [address] [place] [address] [phone] * (ABNORMAL) Basic Metabolic Panel (11/01/2023 1:26 PM EDT) Sodium 142 135 - 145 mmol/L [facility] Potassium 3.2(L) 3.3 - 5.1 mmol/L [facility] Chloride 106 96 - 108 mmol/L [facility] Carbon Dioxide 24 22 - 29 mmol/L [facility] Anion Gap 15 12 - 20 [facility] Urea Nitrogen (BUN) 10 9 - 16 mg/dL [facility] Creatinine, Serum 0.80 0.5 - 1.4 mg/dL [facility] Estimated Glomerular Filt Rate >60 [facility] Comment:NOTE: For -Am erican individuals, multiply the result by 1.210.Chronic Kidney Disease: Estimated GFR < 60 mL/min/1.08t6Skkgkt Kidney Disease: Estimated GFR < 15 mL/min/1.73m2 Glucose 164(H) 60 - 115 mg/dL [facility] Calcium 10.1 8.4 - 10.2 mg/dL [facility] Blood Venous blood specimen / Unknown 11/01/2023 1:26 PM EDT 11/01/2023 4:08 PM EDT Kay Pedersen MD LAB BLOOD ORDERABLES Final Resul t [facility] [address] [place] [address] [phone] documented in this encounter Visit Diagnoses Diagnosis Hypokalemia- Primary Hypopotassemia documented in this encounter Additional Health Concerns Assessment Noted Time PHQ-9 Depression Total Score: 8 03/14/19 24 9:41 AM EST documented as of this encounter Care Teams Machine Tool Technician Instructor Relationship Specialty Start Date End Date Kay Pedersen MD [address] [place] [address] PCP - General Family Medicine 09/10/22 Shadi Cabrera, [place]D [address] [place] [address] Pharmacist Internal Medicine 05/31/23 Garrett Gilbert MD [address] [place] [address] Drive [address] [place] [address] Nephrology 06/18/24 Adryan Werner MD Expense Analyst 06/18/24 Kerry Gallo Rheumatology 06/18/24 documented as of this encounter
--- OUTSIDE RECORDS SUMMARY | 2024-12-20 12:00 | XMS_ITS | Clinical Summary ---
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 90 tablet 1 3 Active Blood Pressure Monitor kit Check blood pressure once daily and as needed 1 kit 3 Active Symbicort 160-4.5 MCG/ACT inhaler INHALE 2 PUFFS BY MOUTH TWICE DAILY. RINSE MOUTH AFTER USING. 3 Active omeprazole (PriLOSEC) [address] capsule TAKE 2 CAPSULES BY MOUTH ONCE DAILY IN THE MORNING 3 Active omega-3 (Fish Oil) 1000 MG capsule Take 1,000 mg by mouth in the morning. Purchases OTC Active leflunomide (Arava) 10 MG tablet Take 10 mg by mouth Once per day. Active hydrOXYzine HCl (Atarax) 25 MG tablet TAKE 1 TABLET BY MOUTH EVERY TWELVE HOURS NEEDED FOR ANXIETY 60 tablet 1 5 Active Alcohol Swabs (Alcohol Prep) pads Use when checking blood sugar 100 each 11 5 Active FreeStyle lancets 1 each by Other route Once per day. 100 each 5 Active FREESTYLE LITE test strip Check blood glucose 100 each 12 5 Active Blood Glucose Monitoring Suppl (FreeStyle Lite) w/Device kit 1 Device Once per day. 1 kit 5 Active Dupixent 300 MG/2ML solution auto-injector 5 Active losartan (Cozaar) 100 MG tablet Take 1 tablet (100 mg) by mouth Once per day. 30 tablet 11 5 Active montelukast (Singulair) 10 MG tabletIndication s:Moderate persistent asthma without complication TAKE 1 TABLET BY MOUTH AT BEDTIME 90 tablet 1 5 Active albuterol (2.5 MG/3ML) 0.083% nebulizer solution Take 3 mL (2.5 mg) by nebulization every 4 (four) hours if needed for wheezing or shortness of breath. 90 mL 1 5 Active metFORMIN, OSM, (Fortamet) 500 MG 24 hr tablet Take 1 tablet (500 mg) by mouth with breakfast and with evening meal. Do not crush, chew, or split. 180 tablet 3 5 026 Active fluticasone (Flonase) 50 MCG/ACT nasal spray Administer 1-2 sprays into each nostril Once per day. Shake gently. Before first use, prime pump. After use, clean tip and replace cap. 16 g 2 5 026 Active sertraline (Zoloft) 100 MG tablet Take 100 mg by mouth in the morning. 5 Active Tirzepatide (Mounjaro) 2.5 MG/0.5ML solution auto-injector Inject 2.5 mg under the skin 1 (one) time per week. 2 mL 5 Active atorvastatin (Lipitor) 80 MG tabletIndication s:Type 2 diabetes mellitus without complication, without long-term current use of insulin (HCC) Take 1 tablet (80 mg) by mouth Once per day. In the morning 30 tablet 11 5 Active amLODIPine (Norvasc) 10 MG tabletIndication s:Primary hypertension TAKE 1 TABLET BY MOUTH EVERY MORNING 90 tablet 3 5 Active potassium chloride CR (Klor-Con M20) 20 MEQ ER tablet TAKE 1 TABLET BY MOUTH ONCE DAILY 30 tablet 1 5 Active metoprolol succinate XL (Toprol XL) 50 MG 24 hr tabletIndication s:Hypertension, unspecified type Take 1 tablet (50 mg) by mouth Once per day. Do not crush or chew. 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 Chronic upper back pain 10/12/2022 Assessment & Plan (01/31/2023 5:58 AM EST): - following with community service officer - continue duloxetine, cyclobenzaprine Assessment & Plan (10/14/2022 10:27 AM EDT): - following with community service officer - continue duloxetine, cyclobenzaprine Acid reflux 10/12/2022 [...] Interested in Acupuncture, so given info on [facility] Acupuncture clinics. She has also been scheduled with [facility] prescriber to transfer care. Meanwhile, [...] plan. Hiatal hernia 05/30/2018 Seropositive rheumatoid arthritis (CMS/HCC) 05/06 Assessment & Plan (09/10/2024 12:55 PM EDT): - following with [facility] Rheumatology, last seen on 03/04/24 - previously taking methotrexate - currently taking leflunomide - patient did not take leflunomide from 09/03/23 to 11/01/23 due to sepsis and cellulitis - continue current treatment plan Assessment & Plan (06/06/2024 11:02 AM EDT): - following with [facility] Rheumatology, last seen on 03/04/24 - previously taking methotrexate - currently taking leflunomide - patient did not take leflunomide from 09/03/23 to 11/01/23 due to sepsis and cellulitis - continue current treatment plan Assessment & Plan (03/10/2024 6:33 PM EST): - following with [facility] Rheumatology, last seen on 03/04/24 - previously taking methotrexate - currently taking leflunomide - patient did not take leflunomide from 09/03/23 to 11/01/23 due to sepsis and cellulitis - continue current treatment plan Assessment & Plan (11/25/2023 4:46 PM EDT): - following with [facility] Rheumatology, last seen on 11/01/23 - previously taking methotrexate - currently taking leflunomide - patient did not take leflunomide from 09/03/23 to 11/01/23 due to sepsis and cellulitis - continue current treatment plan Assessment & Plan (05/01/2023 11:33 AM EST): [facility] - currently taking leflunomide - continue current treatment plan Assessment & Plan (01/31/2023 5:59 AM EST): [facility] - currently taking leflunomide - continue current treatment plan Assessment & Plan (10/14/2022 10:30 AM EDT): [facility] - previously taking methotrexate - currently taking [...] 3 to 4 months - following with [facility] pulmonology, last seen in June 2024 [...] with prednisone. No antibiotic. - following with [facility] pulmonology, last seen in Mar 2024 [...] with prednisone. No antibiotic. - following with [facility] pulmonology, last seen in Jan 2023 [...] short course of prednisone - following with [facility] pulmonology - Continue budesonide / formoterol (Symbicort) as maintenance - Continue albuterol as rescue - Continue montelukast Assessment & Plan (04/25/2023 3:28 PM EST): - following with [facility] pulmonology - Continue budesonide / formoterol (Symbicort) as maintenance - Continue albuterol as rescue - Continue montelukast Assessment & Plan (01/31/2023 5:56 AM EST): - following with [facility] pulmonology - Continue Symbicort as maintenance - Continue albuterol as rescue - Continue montelukast Assessment & Plan (10/14/2022 9:40 AM EDT): - [facility] - Continue Symbicort as maintenance - Continue [...] DEPARTMENT Provider, Generic External Data 11/23/2024 Telephone [facility] [address] [place] [address] Dot Pena MA 11/20/2024 Telephone [facility] [address] [place] [address] Kay Pedersen MD 11/13/2024 Telephone [facility] [address] [place] [address] Cheyenne Underwood RN Results 11/13/2024 Results Follow-Up [facility] [address] [place] [address] Kay Pedersen MD Basic Metabolic Panel 11/13/2024 Orders Only [address] [address] Kay Pedersen MD 11/11/[address] [address] Kay Pedersen MD Primary hypertension 11/09/2024 1:00 PM EDT Telemedicine [address] [address] Shadi Cabrera, Solange Hypertension, unspecified type (Primary Dx); Moderate persistent asthma without complication 11/07/2024 Patient Outreach [address] [address] Kay Pedersen MD Care Coordination (SDOH) 11/06/2024 Patient Outreach [address] [address] Kay Pedersen MD Care Management (C3CM- f/u call. Not available.) 10/25/2024 Patient Outreach [address] [address] Kay Pedersen MD Care Management (C3CM- f/u call) 10/24/2024 Patient Outreach [address] [address] Kay Pedersen MD Care Coordination (Appt reminder) 10/11/2024 Patient Outreach [address] [address] Kay Pedersen MD Care Management (C3CM- f/u call) 10/11/[address] [address] Kay Pedersen MD Durable Medical Equipment (PA: Darci) 10/10/2024 Patient Outreach [address] [address] Kay Pedersen MD Care Coordination (Appt reminder) 10/08/2024 1:30 PM EDT Telemedicine [address] [address] Shadi Cabrera, Solange Hypertension, unspecified type (Primary Dx); Moderate persistent asthma without complication; Type 2 diabetes mellitus without complication, without long-term current use of insulin ([facility]) 10/08/2024 Orders Only [address] [address] Kay Pedersen MD 10/03/2024 Orders Only GENERIC EXTERNAL DATA DEPARTMENT Provider, Generic External Data 10/01/2024 Patient Outreach [address] [address] Kay Pedersen MD Care Coordination (Appt reminder) 09/26/2024 Patient Outreach [address] [address] Kay Pedersen MD Care Coordination ([facility] f/u) 09/26/2024 Patient Outreach [address] [address] Kay Pedersen MD Care Management (C3CM- f/u call) 09/20/[address] [address] Kay Pedersen MD Care Management (C3CM- f/u call/ results) from Last 3 Months Immunizations Immunization Administration [...] Description 01/11/2025 1:00 PM EST Medication Management [facility] [address] [place] [phone] Shadi Cabrera, PharmD [address] [place] [address] 01/21/2025 3:45 PM EST Office Visit [facility] [address] [place], [place] [phone] Kay Pedersen MD [address] [place], [place] [phone] Health Maintenance Due Date Last Done Comments [...] 025 1:19 PM EDT) No Shadi Cabrera, CatalinaD Procedures Procedure Name Priority Date/Time Associated Diagnosis [...] AUTO DIFFERENTIAL Routine 10/03/2024 9:13 AM EDT ALBUMIN, RANDOM URINE W/CREATININE Routine 09/10/2024 2:04 PM EDT Hypertension, unspecified type Prediabetes HEMOGLOBIN A1C Routine 09/10/2024 2:04 PM EDT Prediabetes BI MAMMOGRAM SCREENING TOMOSYNTHESIS [...] included. Sodium 144 135 - 145 mmol/L [facility] Potassium 3.3 3.3 - 5.1 mmol/L [facility] Chloride 109(H) 96 - 108 mmol/L [facility] Carbon Dioxide 26 22 - 29 mmol/L [facility] Anion Gap 12 12 - 20 [facility] Urea Nitrogen (BUN) 6(L) 9 - 16 mg/dL [facility] Creatinine, Serum 0.67 0.5 - 1.4 mg/dL [facility] Estimated Glomerular Filt Rate >60 [facility] Comment:Chronic Kidney Disea se: Estimated GFR < 60 mL/min/[id number] Kidney Disease: Estimated GFR < 15 mL/min/1.73m2 Glucose 97 60 - 115 mg/dL [facility] Calcium 9.5 8.4 - 10.2 mg/dL [facility] 11/28/2024 11:3 9 AM EDT 11/28/2024 11:39 AM EDT us Generic External Data Provider LAB BLOOD ORDERAB LES Final Result [facility] [address] [place] [phone] * Vitamin B12 (Cobalamin) and Folate Panel, Serum (11/13/2024 11:08 AM EDT) Vitamin B12 277 200 - 900 pg/mL [facility] Comment:NORMAL 200-900 PG/M L INDETERMINATE 160-199 PG/ML DEFICIENT < 160 PG/ML Folate 8.3 > or = 4.0 ng/mL [facility] Comment:Reference Values:> o r = 4.0 ng/mL< 4.0 ng/mL suggests folate deficiency Methotrexate, aminopterin and folinic acid(leucovorin) are chemotherapeutic agents whose molecularstructures are similar to folate; therefore, the Architectfolate assay cannot be used for patients using these drugs. 11/13/2024 11:0 8 AM EDT 11/13/2024 1:04 PM EDT Generic External Data Provider LAB BLOOD ORDERAB LES Final Result Performing Organization Address [facility] Co de Phone Number [facility] [address] [place] [phone] * TSH with Reflex to Free T4 (11/13/2024 11:08 AM EDT) TSH reflex Free T4 1.82 0.32 - 4.0 uIU/mL [facility] 11/13/2024 11:0 8 AM EDT 11/13/2024 1:04 PM EDT Generic External Data Provider LAB BLOOD ORDERAB LES Final Result Performing Organization Address [facility] Phone Number [facility] [address] [place] [phone] * Hepatic Function Panel (11/13/2024 11:08 AM EDT) Bilirubin, Total 0.4 0.0 - 1.0 mg/dL [facility] Bilirubin, Direct 0.1 0.0 - 0.5 mg/dL [facility] Aspartate Amino Transferase 25 5 - 31 U/L [facility] Alanine Aminotransferase 23 0 - 31 U/L [facility] Total Protein 7.1 6.5 - 8.0 g/dL [facility] Albumin Level 4.6 3.5 - 5.0 g/dL [facility] Alkaline Phosphatase 107 39 - 117 U/L [facility] 11/13/2024 11:0 8 AM EDT 11/13/2024 1:04 PM EDT Kay Pedersen MD LAB BLOOD ORDERABLES Final Resul t Performing Organization Address [facility] Co de Phone Number [facility] [address] [place] [phone] * (ABNORMAL) Lipid Panel, Standard (11/13/2024 11:08 AM EDT) Triglycerides 151(H) <150 mg/dL [facility] Comment:Desirable Triglyceri de: less than 150 mg/dLBorderline High Triglyceride 150-199 mg/dLHigh Triglyceride: 200-499 mg/dLVery High Triglyceride: greater than or equal to 5OO mg/dL Cholesterol 144 <200 mg/dL [facility] Comment:Desirable Cholestero l: less than 200 mg/dLBorderline High Cholesterol: 200-239 mg/dLHigh Cholesterol: greater than 239 mg/dL LDL Cholesterol Calculated 75 <100 mg/dL [facility] Comment:Desirable LDL: less than 100 mg/dLNear Optimal/Above Optimal LDL: 110- 129 mg/dLBorderline High LDL: 130-159 mg/dLHigh LDL: 160-189 mg/dLVery High LDL: greater than or equal to 190 mg/dL HDL Cholesterol 39(L) >40 mg/dL [facility] Comment:Desirable HDL: great er than 40 mg/dL Note: This HDL assay may give artificially low results in patients with liver disease. 11/13/2024 11:0 8 AM EDT 11/13/2024 1:04 PM EDT us Kay Pedersen MD LAB BLOOD ORDERABLES Final Resul t Performing Organization Address City/[facility]/ZIP Co de Phone Number [facility] [address] [place] [phone] * VITAMIN D 25-OH (D2 AND D3) (10/03/2024 9:13 AM EDT) Vitamin D, 25-OH, D2 <4 ng/mL [facility] Comment:This test was develo ped and its analytical performancecharacteristics have been determined by [employer] [place], [place]. It hasnot been cleared or approved by the U.S. Food and DrugAdministration. This assay has been validated pursuantto the CLIA regulations and is used for clinicalpurposes.THIS TEST WAS PERFORMED AT:[employer] [id number] [place] [phone] EDMONDS MD,PHD Vitamin D, 25-OH, D3 37 ng/mL [facility] Comment:This test was develo ped and its analytical performancecharacteristics have been determined by [employer] [place], [place]. It hasnot been cleared or approved by the U.S. Food and DrugAdministration. This assay has been validated pursuantto the CLIA regulations and is used for clinicalpurposes. Vitamin D, 25-OH, Total 37 30 - 100 ng/mL [facility] Comment:Vitamin D, 25-Hydrox y reports concentrations [...] = 30 ng/mL.For additional information, please refer tohttp://education.Time [employer]/faq/CMO202(This link is being provided for informational/educational purposes only.) 10/03/2024 9:13 AM EDT 10/03/2024 11:23 AM EDT us Generic External Data Provider LAB BLOOD ORDERAB LES Final Result [facility] [address] [place] [phone] * T-SPOT??.TB (10/03/2024 9:13 AM EDT) T Spot TB Negative Negative [facility] Comment:A negative test resu lt does [...] as aquantitative test. TS PANEL A 0 [facility] TS PANEL B 0 [facility] Negative Control Passed [facility] Positive Control Passed [facility] Comment:For additional infor mation, please refer tohttp://education.LoginRadius/faq/XXK574(This link is being provided for informational/educational purposes only.)THIS TEST WAS PERFORMED AT:[employer] [id number] [place] [id number] EDMONDS MD,PHD 10/03/2024 9:13 AM EDT 10/03/2024 11:18 AM EDT us Generic External Data Provider LAB BLOOD ORDERAB LES Final Result [facility] [address] [place] [phone] * Hepatitis Panel, General (10/03/2024 9:13 AM EDT) Pathologist [facility] Hepatitis A IgM Nonreactive Nonreactive [facility] Comment:IgM antibodies to MCDANIEL V not detected; does not exclude earlyacute or recovered HAV infection. ~Hepatitis B Surface Antibody NONREACTIVE Nonreactive [facility] Comment:Nonreactive: < 8.00 mIU/mL Hepatitis B Core Antibody Nonreactive Nonreactive [facility] Hepatitis C Antibody Nonreactive Nonreactive [facility] Comment:Antibodies to HCV no t detected; does not exclude early acuteHCV infection. Hepatitis B Surface Ag Negative Negative [facility] 10/03/2024 9:13 AM EDT 10/03/2024 11:23 AM EDT us Generic External Data Provider LAB BLOOD ORDERAB LES Final Result [facility] [address] [place] [phone] * (ABNORMAL) CBC auto differential (10/03/2024 9:13 AM EDT) White Blood Count 8.1 4.8 - 10.8 X10*3/uL [facility] Red Blood Count 5.61(H) 4.20 - 5.50 X10*6/uL [facility] Hemoglobin 15.3 12.0 - 16.0 g/dl [facility] Hematocrit 47.3(H) 37.0 - 47.0 % [facility] Mean Corpuscular Volume 84.3 80.0 - 98.0 fL [facility] Mean Corpuscular Hemoglobin 27.3 27.0 - 33.0 pg [facility] Mean Corpuscular HGB Conc 32.3 31.0 - 35.0 g/dl [facility] Red Cell Distribution Width 13.2 11.0 - 16.0 % [facility] Platelet Count 264 160 - 400 X10*3/uL [facility] Mean Platelet Volume 11.9 9.4 - 12.3 fL [facility] Neutrophils Percent Auto 38.3(L) 45 - 73 % [facility] Imm Gran Pct Auto 0.2 0.0 - 0.4 % [facility] Lymphocytes Percent Auto 45.9(H) 20 - 40 % [facility] Monocytes Percent Auto 6.2 2 - 11 % [facility] Eosinophils Percent Auto 8.4(H) 0 - 4 % [facility] Basophils Percent Auto 1.0 0 - 2 % [facility] NRBC Pct Auto 0.0 0.0 - 0.2 /100WBC [facility] Neutrophils Absolute Auto 3.1 2.0 - 8.3 x10*3/uL [facility] Imm Gran Abs Auto 0.02 0.00 - 0.03 X10*3/uL [facility] Lymphocytes Absolute Auto 3.7 1.2 - 4.9 X10*3/uL [facility] Monocytes Absolute Auto 0.5 0.1 - 1.2 X10*3/uL [facility] Eosinophils Absolute Auto 0.7(H) 0.0 - 0.4 X10*3/uL [facility] Basophils Absolute Auto 0.1 0.0 - 0.2 X10*3/uL [facility] NRBC Abs Auto 0.000 0.0 - 0.012 X10*3/uL [facility] 10/03/2024 9:13 AM EDT 10/03/2024 11:18 AM EDT us Generic External Data Provider LAB BLOOD ORDERAB LES Final Result [facility] [address] [place] [phone] * Sed Rate by Modified Rigo (10/03/2024 9:13 AM EDT) Erythrocyte Sedimentation Rate 6 0 - 20 MM/HR [facility] Comment:Patients with polycy themia and many hemoglobin abnormalitiesmay have depressed sed rates whereas patients with anemiamay have elevated sed rates. 10/03/2024 9:13 AM EDT 10/03/2024 11:18 AM EDT us Generic External Data Provider LAB BLOOD ORDERAB LES Final Result Performing Organization Address City/[facility]/ZIP Co de Phone Number [facility] [address] [place] [phone] * C-reactive Protein (10/03/2024 9:13 AM EDT) [facility] C Reactive Protein 0.44 < or = 0.50 mg/dL [facility] 10/03/2024 9:13 AM EDT 10/03/2024 11:23 AM EDT Generic External Data Provider LAB BLOOD ORDERAB LES Final Result Performing Organization Address [facility] Co de Phone Number [facility] [address] [place] [phone] * (ABNORMAL) Comprehensive Metabolic Panel (10/03/2024 9:13 AM EDT) [facility] Sodium 141 135 - 145 mmol/L [facility] Potassium 3.2(L) 3.3 - 5.1 mmol/L [facility] Chloride 107 96 - 108 mmol/L [facility] Carbon Dioxide 23 22 - 29 mmol/L [facility] Anion Gap 14 12 - 20 [facility] Urea Nitrogen (BUN) 9 9 - 16 mg/dL [facility] Creatinine, Serum 0.84 0.5 - 1.4 mg/dL [facility] Estimated Glomerular Filt Rate >60 [facility] Comment:Chronic Kidney Disea se: Estimated GFR < 60 mL/min/1.79y1Etituf Kidney Disease: Estimated GFR < 15 mL/min/1.73m2 Glucose 125(H) 60 - 115 mg/dL [facility] Calcium 9.4 8.4 - 10.2 mg/dL [facility] Bilirubin, Total 0.3 0.0 - 1.0 mg/dL [facility] Aspartate Amino Transferase 37(H) 5 - 31 U/L [facility] Alanine Aminotransferase 39(H) 0 - 31 U/L [facility] Total Protein 7.0 6.5 - 8.0 g/dL [facility] Albumin Level 4.5 3.5 - 5.0 g/dL [facility] Alkaline Phosphatase 126(H) 39 - 117 U/L [facility] 10/03/2024 9:13 AM EDT 10/03/2024 11:23 AM EDT us Generic External Data Provider LAB BLOOD ORDERAB LES Final Result Performing Organization Address [facility] Co de Phone Number [facility] [address] [place] [phone] * Albumin, Random Urine W/Creatinine (09/10/2024 2:04 PM EDT) Creatinine, Urine 53.30 mg/dL [facility] Microalbumin Urine 12.0 mg/L [facility] Microalbum Creatinine Ratio Ur 22.5 <30 ug/mg cr [facility] Comment:Albumin/Creatinine R atio Reference Ranges: Normal: < 30 ug/mg creatinine Microalbuminuria: 30 - 300 ug/mg creatinineClinical Albuminuria: > 300 ug/mg creatinine Urine 09/10/2024 2:04 PM EDT 09/10/2024 4:12 PM EDT us Kay Pedersen MD LAB URINE ORDERABLES Final Resul t Performing Organization Address [facility] Co de Phone Number [facility] [address] [place] [address] [phone] * (ABNORMAL) Hemoglobin A1c (09/10/2024 2:04 PM EDT) Hemoglobin A1c 6.9(H) <6.0 % [facility] Comment:Hemoglobin A1C Refer ence Range Adults: 4.8 - 6.0 % Non diabetic: < 6.0 % Goal: < 7.0 %Additional Action Suggested: > 8.0 %Note: Hemoglobin A1c results are invalid for patients with abnormal amounts of HbF. Blood transfusions may impact the HbA1c concentration in the patient sample. Estimated Average Glucose 151 mg/dL [facility] Comment:eAG = Estimated ave rage glucose which is %A1C expressed asaverage glucose, using the formula of the X2R-ErnuummNyyvkjb Glucose study (ADAG), Diabetes Care, Vol.31,#8,Oct. 2007 Blood Venous blood specimen / Unknown 09/10/2024 2:04 PM EDT 09/10/2024 5:08 PM EDT us Kay Pedersen MD LAB BLOOD ORDERABLES Final Resul t [facility] [address] [place] [address] [phone] * BI Mammogram Screening Tomosynthesis Bilateral (08/14/2024 12:45 PM EDT) Anatomical Region Laterality Modality Breast Bilateral Mammography 08/14/2024 12:4 5 PM EDT Narrative 08/21/2024 5:53 PM EDT [facility] [address] [place] [id number] Mammography Report Signed Patient: Mariluz Pisano MR#: [id number] : 1975 Acct:[id number] Age/Sex: 49 / F ADM Date: 08/14/24 Loc: .MAMMO Attending Dr: Kay Pedersen MD Ordering Physician: Kay Pedersen MD Results: 1Negative Date of Service: 08/14/24 Follow Up: 1 Year From [facility] Mammogram Procedure(s): MM tomosynthesis screening BI Accession Number(s): [id number] cc: Kay Pedersen MD EXAMINATION: MM SCREENING [...] by Bonny Naqvi DO in OV> 08/21/24 1756 DD/ 1245 TD/TT: 08/14/24 1255 Cat Sitter: Procedure Note Donotuseinterpreter, Image - 08/21/2024 [facility] [address] [place] [id number] Mammography Report Signed Patient: Debo Pisano#: [id number] : 1975Acct:[id number] Age/Sex: 49 / FADM Date: 08/14/24 Loc: [facility] Attending Dr: Kay Pedersen MD Ordering Physician: Kay Pedersen MDResults: 1Negative Date of Service: 08/14/24Follow Up: 1 Year From [facility] Mammogram Procedure(s): MM tomosynthesis screening BI Accession Number(s): [id number] cc: Kay Pedersen MD EXAMINATION: MM SCREENING [...] 08/21/24 1751 DD/ 1245 TD/TT: 08/14/24 1255 Cat Sitter: Kay Pedersen MD IMG BI PROCEDURES Final [...] of detection of this assay. The [employer] Teacher Tutor HIV Ag/Ab Combo assay result and supplemental assay results should be interpreted in conjunction with the patient's clinical presentation, history and other laboratory results. If the results are inconsistent with clinical evidence, additional testing is suggested to confirm the result. 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
--- OUTSIDE RECORDS SUMMARY | 2024-12-20 12:00 | XMS_ITS | Encounter Summary ---
Author Organization [facility] Address [address] [facility] 7t [place] [address] Care Team Providers Care Human Resources Admin Name Role Phone Kay Pedersen MD Primary Care Provider [phone] Shadi Cabrera PharmD Unavailable [phone] Garrett Gilbert MD Unavailable [phone] Reason for Referral * Consultation (Routine) - Closed Specialty Diagnoses / Procedures Referred By Contac t Referred To Contact Pharmacy Diagnoses Hypertension, unspecified type Moderate persistent asthma without complication Kay Pedersen MD [address] [place] [address] Phone: tel: fax: Referral ID Status Reason Start Date Expiration Date V isits Requested Visits Authorized [id number] Closed Consult and Treat 12/05/2023 12/04/2024 6 6 Encounter Details Date Type Department Care Team (Late st Contact Info) Description 12/05/2023 Orders Only [facility] [address] [place], [place] [phone] Kay Pedersen MD [address] [place], [place] [phone] Hypertension, unspecified type (Primary Dx); Moderate persistent [...] Description 01/11/2025 1:00 PM EST Medication Management [facility] [address] [place] [phone] Shadi Cabrera, CatalinaD [address] [place] [address] 01/21/2025 3:45 PM EST Office Visit [facility] [address] [place] [address] Kay Pedersen MD [address] [place] [address] Scheduled Referrals Name Type Priority Associated Diagnoses [...] documented as of this encounter Care Teams Human Resources Admin Relationship Specialty Start Date End Date Kay Pedersen MD [address] [place] [address] PCP - General Family Medicine 09/10/22 Shadi Cabrera, PharmD [address] [place] [phone] Pharmacist Internal Medicine 05/31/23 Garrett Gilbert MD [address] [place] [address] Drive [address] [place] [address] Nephrology 06/18/24 Adryan Werner MD Oracle Programmer 06/18/24 Kerry Gallo Rheumatology 06/18/24 documented as of this encounter
--- OUTSIDE RECORDS SUMMARY | 2024-12-20 12:00 | XMS_ITS | Encounter Summary ---
Author Organization [employer] [facility] Address [address] [facility] 7t [place] [address] Care Team Providers Care Coagulating Drying Supervisor Name Role Phone Jasmine Rodriguez FICTION AND NONFICTION PROSE WRITER Primary Care Provider Mary Kay Escobar MD Primary Care Provider [phone] Shadi Cabrera PharmD Unavailable [phone] Garrett Gilbert MD Unavailable [phone] Encounter Details Date Type Department Care Team (Late st Contact Info) Description 03/25/2022 Orders Only [facility] [address] [place] [address] Megan Munoz LPN Social History Tobacco Use [...] Description 01/11/2025 1:00 PM EST Medication Management [address] [address] Shadi Cabrera, PharmD [address] [place], [place] [phone] 01/21/2025 3:45 PM EST Office Visit [address] [phone] Kay Pedersen MD [address] [place] [address] [phone] documented as of this encounter Visit Diagnoses Not on filedocumented in this encounter Care Teams Coagulating Drying Supervisor Relationship Specialty Start Date End Date Jasmine Rodriguez FNP PCP - General Family Medicine 01/25/22 09/09/22 Kay Pedersen MD [address] [place] [address] PCP - General Family Medicine 09/10/22 Shadi Cabrera, Solange [address] [place] [address] Pharmacist Internal Medicine 05/31/23 Garrett Gilbert MD [address] [place] [address] Drive [address] [place] [address] Nephrology 06/18/24 Adryan Werner MD Folding Rules Printing Machine Operator 06/18/24 Kerry Gallo Rheumatology 06/18/24 documented as of this encounter
--- OUTSIDE RECORDS SUMMARY | 2024-12-20 12:00 | XMS_ITS | Encounter Summary ---
Author Organization [employer] Address [address] [facility] [address] 7t [place] [address] Care Team Providers Care Medical Review Specialist Name Role Phone Kay Pedersen MD Primary Care Provider [phone] Shadi Cabrera PharmD Unavailable [phone] Garrett Gilbert MD Unavailable [phone] Encounter Details Date Type Department Care Team (Late st Contact Info) Description 09/14/2024 Orders Only [facility] [address] [place], [place] [phone] Kay Pedersen MD [address] [place], [place] [phone] Hypokalemia (Primary Dx) Social History Tobacco Use [...] Description 01/11/2025 1:00 PM EST Medication Management [address] [address] Shadi Cabrera, PharmD [address] [place] [address] 01/21/2025 3:45 PM EST Office Visit [address] [address] Kay Pedersen MD [address] [place] [address] [phone] documented as of this encounter Goals Goal [...] EDT) Sodium 147(H) 135 - 145 mmol/L [facility] Potassium 3.1(L) 3.3 - 5.1 mmol/L [facility] Chloride 106 96 - 108 mmol/L [facility] Carbon Dioxide 28 22 - 29 mmol/L [facility] Anion Gap 16 12 - 20 [facility] Urea Nitrogen (BUN) 7(L) 9 - 16 mg/dL [facility] Creatinine, Serum 0.71 0.5 - 1.4 mg/dL [facility] Estimated Glomerular Filt Rate >60 [facility] Comment:Chronic Kidney Disea se: Estimated GFR < 60 mL/min/[id number] Kidney Disease: Estimated GFR < 15 mL/min/1.73m2 Glucose 106 60 - 115 mg/dL [facility] Calcium 9.5 8.4 - 10.2 mg/dL [facility] Blood Venous blood specimen / Unknown 11/13/2024 11:08 AM EDT 11/13/2024 1:04 PM EDT us Kay Pedersen MD LAB BLOOD ORDERABLES Final Resul t [facility] [address] [place] [phone] documented in this encounter Visit Diagnoses Diagnosis Hypokalemia- Primary Hypopotassemia documented in this encounter Additional Health Concerns Assessment Noted Time PHQ-9 Depression Total Score: 5 07/28/19 25 3:55 PM EDT documented as of this encounter Care Teams Medical Review Specialist Relationship Specialty Start Date End Date Kay Pedersen MD [address] [place] [address] PCP - General Family Medicine 09/10/22 Shadi Cabrera, CatalinaD [address] [place] [address] Pharmacist Internal Medicine 05/31/23 Garrett Gilbert MD [address] [place] [address] Drive [address] [place] [address] Nephrology 06/18/24 Adryan Werner MD Streetcar Conductor 06/18/24 Kerry Gallo Rheumatology 06/18/24 documented as of this encounter
--- OUTSIDE RECORDS SUMMARY | 2024-12-20 12:00 | XMS_ITS | Encounter Summary ---
Author Organization [employer] [facility] Address [address] [facility] 7t [place] [address] Care Team Providers Care Autoclave Operator Name Role Phone Jasmine Rodriguez VENETIAN BLIND WORKER Primary Care Provider Mary Kay Escobar MD Primary Care Provider [phone] Shadi Cabrera PharmD Unavailable [phone] Garrett Gilbert MD Unavailable [phone] Encounter Details Date Type Department Care Team (Late st Contact Info) Description 05/24/2022 Orders Only [facility] [address] [place] [address] Iliana Geller LPN Social History Tobacco Use [...] Description 01/11/2025 1:00 PM EST Medication Management [facility] [address] [place] [address] Shadi Cabrera, PharmD [address] [place], [place] [phone] 01/21/2025 3:45 PM EST Office Visit [facility] [address] [place] [address] Kay Pedersen MD [address] [place] [address] [phone] documented as of this encounter Visit Diagnoses Not on filedocumented in this encounter Care Teams Autoclave Operator Relationship Specialty Start Date End Date Jasmine Rodriguez FNP PCP - General Family Medicine 01/25/22 09/09/22 Kay Pedersen MD [address] [place] [address] PCP - General Family Medicine 09/10/22 Shadi Cabrera, CatalinaD [address] [place] [address] Pharmacist Internal Medicine 05/31/23 Garrett Gilbert MD [address] [place] [address] Drive [address] [place] [address] Nephrology 06/18/24 Adryan Werner MD Division Chief 06/18/24 Kerry Gallo Rheumatology 06/18/24 documented as of this encounter
--- OUTSIDE RECORDS SUMMARY | 2024-12-20 12:00 | XMS_ITS | Encounter Summary ---
Author Organization [employer] [facility] Address [address] [facility] 7t [place] [address] Care Team Providers Care Medical Research Scientist Name Role Phone Kay Pedersen MD Primary Care Provider [phone] Shadi Cabrera PharmD Unavailable [phone] Garrett Gilbert MD Unavailable [phone] Reason for Referral * Consultation (Routine) - Closed Specialty Diagnoses / Procedures Referred By Contac t Referred To Contact Optometry Diagnoses Type 2 diabetes mellitus with other specified complication, without long-term current use of insulin (HCC) Kay Pedersen MD [address] [place] [address] Phone: tel: fax: [facility] [address] [place] [address] Phone: tel: fax: Referral ID Status Reason Start Date Expiration Date V isits Requested Visits Authorized [id number] Closed Consult and Treat 09/14/2024 09/14/2025 1 1 Encounter Details Date Type Department Care Team (Late st Contact Info) Description 09/14/2024 Orders Only [facility] [address] [place], [place] [phone] Kay Pedersen MD [address] [place], [place] [phone] Type 2 diabetes mellitus with other specified [...] Description 01/11/2025 1:00 PM EST Medication Management [facility] [address] [place] [address] Shadi Cabrera, PharmD [address] [place] [address] 01/21/2025 3:45 PM EST Office Visit [facility] [place] [address] [place] [address] Scheduled Referrals Name Type Priority Associated Diagnoses Orde r Schedule Referral to [facility] Outpatient Referral Routine Type 2 diabetes mellitus with other specified complication, without long-term current use of insulin ([facility]) Expected: 09/14/2024 (Approximate), Expires: 09/14/2025 documented as of this encounter Goals Goal Patient Goal Type Associated Problems Recent Progress Patient-Stated? Author Blood Pressure < 140/90 Blood Pressure 135/99( 025 1:19 PM EDT) No Shadi Cabrera, PharmD documented as of this encounter Visit Diagnoses Diagnosis Type 2 diabetes mellitus with other specified complication, without long-term current use of insulin ([facility])- Primary documented in this encounter Additional Health Concerns Assessment Noted Time PHQ-9 Depression Total Score: 5 07/28/19 25 3:55 PM EDT documented as of this encounter Care Teams Medical Research Scientist Relationship Specialty Start Date End Date Kay Pedersen MD [address] [place] [address] PCP - General Family Medicine 09/10/22 Shadi Cabrera, PharmD [address] [place] [phone] Pharmacist Internal Medicine 05/31/23 Garrett Gilbert MD [address] [place] [address] Drive [address] [place] [address] Nephrology 06/18/24 Adryan Werner MD Washer Operator 06/18/24 Kerry Gallo Rheumatology 06/18/24 documented as of this encounter
--- OUTSIDE RECORDS SUMMARY | 2024-12-20 12:00 | XMS_ITS | Encounter Summary ---
Author Organization [employer] Address [address] [facility] [address] 7t [place] [address] Care Team Providers Care Mapping Pilot Name Role Phone Kay Pedersen MD Primary Care Provider [phone] Shadi Cabrera PharmD Unavailable [phone] Garrett Gilbert MD Unavailable Encounter Details Date Type Department Care Team ([facility] st Contact Info) Description 10/08/2024 Orders Only [facility] [address] [place], [place] [phone] Kay Pedersen MD [address] [place], [place] [phone] Social History Tobacco Use Types Packs/Day Years [...] 01/11/2025 1:00 PM EST Medication Management [address] [address] Shadi Cabrera, PharmD [address] [place] [address] 01/21/2025 3:45 PM EST Office Visit [address] [address] Kay Pedersen MD [address] [place] [address] documented as of this encounter Goals Goal [...] documented as of this encounter Care Teams Mapping Pilot Relationship Specialty Start Date End Date Kay Pedersen MD [address] [place] [address] PCP - General Family Medicine 09/10/22 Shadi Cabrera, Solange [address] [place] [address] Pharmacist Internal Medicine 05/31/23 Garrett Gilbert MD [address] [place] [address] Drive [address] [place] [address] Nephrology 06/18/24 Adryan Werner MD Precinct Police Captain 06/18/24 Kerry Gallo Rheumatology 06/18/24 documented as of this encounter
== END 2024-12-20 10:03 | disposition home or self-care (01) ==
LOC: HO.10HDL 10:02
PROVIDERS: Visit Provider Internal Medicine Hypertension Specialist
DX: E87.6 Hypokalemia (principal)
CPT/HCPCS: 36415; 80048

== ENCOUNTER 2024-12-27 13:29 | Outpatient (AMB) | payer MEDICAID, SELFPAY ==
[2024-12-27 13:45] VITALS: BP 108/70; PULSE 86; O2SAT 92; BMI 33.5
--- NOTE | 2024-12-27 13:45 | HO.NEPHOV ---
Vital Signs 12/27/24 13:45 Height 4 ft 11 in Weight 166 lb BMI 33.5 BP 108/70 Blood Pressure Location Lt brachial Position Sitting Pulse 86 Pulse Source Pulse Oximeter Pulse Oximetry (%) 92 Oxygen Delivery Method Room Air Intake Visit Reasons: 4-5wks f/u w/labs Confirmed Document Image Technician Required: Yes Document Image Technician Name: Erick [id number] Accompanied by: Self / Same As Patient Allergies penicillin G (PENICILLIN G) Allergy (Severe, Verified 12/27/24 13:46) DIZZINESS tramadol Allergy (Severe, Verified 12/27/24 13:46) Vomiting and sweats Medication List - Last Reconciled 12/27/24 by Garrett Gilbert MD acetaminophen (Tylenol) 650 mg PO Q6H PRN alcohol swabs (Alcohol Prep Pads) pad topical amlodipine 10 mg PO DAILY aripiprazole 20 mg PO QAM atorvastatin 80 mg PO QAM blood sugar diagnostic (FreeStyle Lite Strips) As directed budesonide-formoterol 160-4.5 mcg/actuation (Symbicort) 2 puffs inhalation BID hydroxyzine HCl 25 mg PO DAILY PRN lancets (TRUEplus Lancets) As directed leflunomide 10 mg PO QAM losartan 100 mg PO QAM metformin ER 500 mg PO DAILY montelukast 10 mg PO DAILY omeprazole 40 mg (2 x 20 mg) PO QAM 90 days potassium chloride ER 20 mEq PO DAILY sertraline 100 mg PO DAILY HPI Comments Details: - The patient is a 49-year-old female presenting with hypertension and hypokalemia. - Hypertension: Managed with amlodipine and losartan, - Hypokalemia: Treated with potassium supplements, levels improved. In the past plasma renin and aldosterone levels were normal. No alkalosis. [facility] Medical History Diabetes mellitus Encounter for screening for osteoporosis Irritable bowel Esophagitis Early satiety Thoracic degenerative disc disease Back pain Asthma Fibromyalgia Sleep apnea Seropositive rheumatoid arthritis Arthritis Diarrhea Surgical History History of esophagogastroduodenoscopy (EGD) History of laparoscopic cholecystectomy Hx of tubal ligation History of partial hysterectomy Hx of endoscopy History of colonoscopy Family History Father No problems noted. Mother History of high blood pressure Social History Household Members: None Housing: Apartment Do you presently have visiting nurse or other home services: No Alcohol intake: current Alcohol intake frequency: holidays/special occasions only Alcohol type: beer and wine Patient Tobacco Use Status: Former Tobacco user Tobacco use type: Cigarette e-Cigarette/Vaping Use: Never Used Substance Use Type: Marijuana Advance Directives Date on File: 09/12/23 service: No Current occupational status: disabled Physical Exam Vital Signs: Last Vital Signs Pulse 86 12/27/24 13:45 BP 108/70 12/27/24 13:45 Pulse Ox 92 12/27/24 13:45 Oxygen Delivery Method Room Air 12/27/24 13:45 BMI result Body Mass Index 33.5 Comfortable Neck supple no JVD. Lungs entry equal no rales. Heart S1-S2 heard no gallop or rub. Abdomen soft nontender. Neuro alert awake oriented. No asterixis. Extremities no edema. Results Reviewed Nephrology Results: Hgb, (12.0-16.0) 15.5 g/dl 11/13/24 WBC, (4.8-10.8) 8.3 X10*3/uL 11/13/24 Plt Count, (160-400) 273 X10*3/uL 11/13/24 Sodium, (135-145) 148 mmol/L H 12/20/24 Potassium, (3.3-5.1) 3.9 mmol/L 12/20/24 Chloride, (96-108) 112 mmol/L H 12/20/24 Carbon Dioxide, (22-29) 25 mmol/L 12/20/24 BUN, (9-16) 12 mg/dL 12/20/24 Creatinine, (0.5-1.4) 0.67 mg/dL 12/20/24 Calcium, (8.4-10.2) 9.8 mg/dL 12/20/24 Urine Protein, (Neg-Trace) Trace mg/dL 11/13/24 Renal US 09/09/23 Assessment & Plan Assessment & Plan (1) ELISA (acute kidney injury): Code(s): N17.9 - Acute kidney failure, unspecified Category: Medical Plan 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 Peak creatinine was 5.5 mg/dL.. Vanco induced tubular injury is gradually improving. Serum creatinine is down to baseline of 0.67 mg. No signs or symptoms of uremia. Fluid status seems acceptable. Hypokalemia - Continue potassium supplementation and dietary adjustments. In the past plasma renin and aldosterone levels were normal. No alkalosis Continue potassium chloride 20 mEq a day Encouraged to increase potassium rich foods including oranges - Recheck potassium levels in one month. Hypertension Blood pressure well - Continue amlodipine and losartan. - Monitor blood pressure regularly. . Diabetes Mellitus - Maintain dietary restrictions. Orders: Orders Basic Metabolic Panel 3 Months E87.6 - Hypokalemia Coding Level of Care Code Est Pt Level 4 (82170) Diagnoses ELISA (acute kidney injury) N17.9
== END 2024-12-27 13:55 | disposition home or self-care (01) ==
LOC: HO.HKA 13:30
PROVIDERS: PCP Family Medicine; Visit Provider Internal Medicine Hypertension Specialist
DX: N17.9 Acute kidney failure, unspecified (principal)
CPT/HCPCS: 99214

== ENCOUNTER → 2024-12-27 13:29 | Outpatient (BNVA) | payer MEDICAID, SELFPAY | PROVIDERS: PCP Family Medicine; Visit Provider Internal Medicine Hypertension Specialist | DX: N17.0 Acute kidney failure with tubular necrosis (principal); I10 Essential (primary) hypertension; E11.9 Type 2 diabetes mellitus without complications; E87.6 Hypokalemia; N14.19 Nephropathy induced by other drugs, medicaments and biological substances | CPT/HCPCS: 99212 ==

== ENCOUNTER 2025-01-22 10:28 | Outpatient (REF) | payer MEDICAID, SELFPAY ==
--- NOTE | ~2025-01-22 | XR_ITS ---
EXAMINATION: XR CHEST CLINICAL INFORMATION: wheezing COMPARISON: Previous chest x-ray most recent June 2024 TECHNIQUE: 2 views of the chest were obtained. FINDINGS: New thick bandlike linear density in the lingula/left upper lobe probably representing subsegmental atelectasis or possibly small infiltrate. New 1.4 cm round density projecting over the posterior mid thoracic spine T7-8 level on the lateral view. This may represent superimposition of bony structures. Lungs are otherwise clear. Cardiac and mediastinal contours are stable. No pleural effusion or pneumothorax. Degenerative changes of the spine.. XR/XR chest 2V IMPRESSION: Left upper lobe atelectasis or small infiltrate. New 1.4 cm round density projecting over the posterior mid thoracic spine on the lateral view. This may be related to superimposition of bony structures. Short-term chest x-ray follow-up recommended. Electronically signed by: Tianna Rodriguez MD 01/22/2025 12:06 PM [facility]
== END 2025-01-22 10:29 | disposition home or self-care (01) ==
LOC: HO.HHCX 10:28
PROVIDERS: PCP Family Medicine; Visit Provider Family Medicine
DX: R06.2 Wheezing (principal)
CPT/HCPCS: 71046

== ENCOUNTER → 2025-01-22 10:45 | Outpatient (BNV) | payer MEDICAID, SELFPAY | PROVIDERS: PCP Family Medicine; Visit Provider Radiology Diagnostic Radiology | DX: R06.2 Wheezing (principal) | CPT/HCPCS: 71046 ==